=== PATIENT | female | born 1950 | race Caucasian/White ===

== ENCOUNTER 2019-09-16 01:41 | Observation (INO) ==
[2019-09-16 02:53] LABS: BUN Creatinine Ratio 13.1 (10-20); Bilirubin,Total 0.5 mg/dl (0.2-1); Calcium 9.1 mg/dl (8.5-10.1); Creatinine Clr Calc Pharmacy 54.7 ml/min; Est GFR (African American) 63.2; Est GFR (Non-African American) 54.5; Globulin 4.1 gm/dl (2.5-4.0); Potassium 3.4 mmol/L (3.5-5.1); Total Protein 8.1 gm/dl (6.4-8.2)
[2019-09-16 02:54] LABS: Basophils # (auto) 0.01 K/uL (0-0.2); Basophils % (auto) 0.1 %; Eosinophils # (auto) 0.16 K/uL (0-0.5); Eosinophils % (auto) 2.3 %; Hematocrit (blood only) 40.7 % (37-47); Hemoglobin 13.7 g/dL (12.0-16.0); Immature Granulocytes # (auto) 0.01 K/uL (0.00-0.02); Immature Granulocytes % (auto) 0.1 %; Lymphocytes # (auto) 1.88 K/uL (1.2-3.4); Lymphocytes % (auto) 27.5 %; Mean Corpuscular Hemoglobin 29.5 pg (25-34); Mean Corpuscular Hgb Conc 33.7 g/dL (32-36); Mean Corpuscular Volume 87.5 fL (80-100); Mean Platelet Volume 10.6 fL (7.4-10.4); Monocytes # (auto) 0.61 K/uL (0.11-0.59); Monocytes % (auto) 8.9 %; Neutrophils # (auto) 4.17 K/uL (1.4-6.5); Neutrophils % (auto) 61.1 %; Platelet Count 157 K/uL (130-400); RDW Coefficient of Variation 13.7 % (11.5-14.5); RDW Standard Deviation 43.7 fL (36.4-46.3); Red Blood Count 4.65 M/uL (4.2-5.4); White Blood Count 6.84 K/uL (4.8-10.8)
[2019-09-16 02:56] LABS: Partial Thromboplastin Time 26.3 Seconds (21.0-31.0); Prothrombin Time 10.3 Seconds (9.0-12.0)
[2019-09-16] MEDS ORDERED: ALBUTEROL 0.083% NEBU SOLN 3 ML VIAL NEB STA (02:59)
[2019-09-16] MEDS ORDERED: IOVERSOL 100ml IV PRN (03:04)
[2019-09-16] MEDS ORDERED: POTASSIUM CHLORIDE 20 MEQ TABCR PO STA ×2 (04:04→07:21)
[2019-09-16] MEDS ORDERED: LACTATED RINGER'S 1,000 ML IV ONE (04:19)
--- NOTE | 2019-09-16 04:39 | Emergency Department Note ---
Entered by Bruce Berumen acting as a scribe for History of Present Illness General Chief complaint: Rectal Bleed Stated complaint: RECTAL BLEEDING Time Seen by Provider: 09/16/19 01:52 Source: patient History of Present Illness Onset (ago): day(s) (two nights ago) Location: abdomen Pain Consistency: + intermittent Quality: + other (rectal bleeding) Associated symptoms: + other (Positive for intermittent abdominal pain and a cough.) The patient is a 69 year old female who presents to the emergency department with complaints of intermittent rectal bleeding beginning two days ago. The patient states that she has had a cough for a week. She notes that she was coughing two days ago, and she reports that she started having rectal bleeding at that time. The patient states that her bleeding resolved yesterday during the day, but she notes that her bleeding started up again last night. She also complains of intermittent abdominal pain. She reports that she has a history of hemorrhoids and diverticulosis, but she denies any blood thinners use. Home Medications Home Medications Medication Instructions Recorded Confirmed Type Flovent HFA 2 inh INHALATION BID PRN 08/09/18 09/16/19 History albuterol sulfate [Ventolin HFA] 1 puff INHALATION Q6H PRN 08/09/18 09/16/19 History atenolol 25 mg PO QAM 08/09/18 09/16/19 History omeprazole 20 mg PO BID 08/09/18 09/16/19 History coenzyme Q10 [Co Q-10] 200 mg PO QAM 02/12/19 09/16/19 History rosuvastatin [Crestor] 5 mg PO QAM 02/12/19 09/16/19 History Allergies Allergy/AdvReac Type Severity Reaction Status Date / Time Sulfa (Sulfonamide Allergy Intermediate Hives Verified 09/16/19 03:29 Antibiotics) codeine AdvReac Intermediate "deathly Verified 09/16/19 03:29 sick and I throw up" levofloxacin [From Levaquin] AdvReac Mild Nausea Verified 09/16/19 03:29 Past Med/Surg History Social History Preferred Language: Yemeni Communication Ability: Effective Visual Impairment: No Limitations Hearing Ability: Normal Glove Turner And Former Required: No Beliefs That Will Affect Care: None marital status: Current Living Situation: Spouse Feels Safe at Home: Yes Smoking Status: Never smoker Second Hand Exposure: No ; Hx Alcohol Use: No Hx Substance Use: No Review of Systems See HPI for pertinent positives & negatives. and A total of 10 systems reviewed and were otherwise negative Physical Exam Vital Signs Vital Signs - 24 hr 09/16/19 01:45 09/16/19 02:00 09/16/19 02:13 Temperature 36.6 C Temperature Source Oral Pulse Rate 94 H 85 Pulse Rate [Right Finger] Pulse Rate from SpO2 Sensor 82 Respiratory Rate 20 18 Respiratory Effort / Characteristics Respiratory Depth Normal Blood Pressure 181/110 H 162/105 H Blood Pressure Mean 133 131 Pulse Oximetry 98 99 95 Oxygen Delivery Method Room Air Room Air Sepsis Recent Fever Within 48 Hours No Sepsis New/Unexplained Change in Mental Status No Sepsis Action Taken by Nursing No Action Required 09/16/19 02:45 09/16/19 03:00 09/16/19 03:14 Temperature Temperature Source Pulse Rate 78 73 Pulse Rate [Right Finger] 76 Pulse Rate from SpO2 Sensor 75 Respiratory Rate 14 18 16 Respiratory Effort / Characteristics Non-Labored Respiratory Depth Blood Pressure Blood Pressure Mean Pulse Oximetry 100 98 Oxygen Delivery Method Room Air Sepsis Recent Fever Within 48 Hours Sepsis New/Unexplained Change in Mental Status Sepsis Action Taken by Nursing 09/16/19 03:30 09/16/19 04:00 09/16/19 04:32 Temperature Temperature Source Pulse Rate 81 90 Pulse Rate [Right Finger] Pulse Rate from SpO2 Sensor 82 89 97 H Respiratory Rate 18 22 Respiratory Effort / Characteristics Respiratory Depth Blood Pressure 153/88 H 152/88 H Blood Pressure Mean 100 97 Pulse Oximetry 97 98 93 Oxygen Delivery Method Sepsis Recent Fever Within 48 Hours Sepsis New/Unexplained Change in Mental Status Sepsis Action Taken by Nursing GENERAL: Awake, alert, well-appearing, in no acute distress HENT: Normocephalic, atraumatic. Oropharynx unremarkable. EYES: Normal conjunctiva. Sclera non-icteric. NECK: Supple. No nuchal rigidity. FROM. No JVD. RESPIRATORY: Clear to auscultation. CARDIAC: Regular rate, normal rhythm. Extremities warm and well perfused. Pulses equal. ABDOMEN: Soft, non-distended. No tenderness to palpation. No rebound or guarding. No masses. RECTAL: Dark red blood, guaiac positive. MUSCULOSKELETAL: Chest examination reveals no tenderness. The back is symmetrical on inspection without obvious abnormality. There is no CVA tenderness to palpation. No joint edema. LOWER EXTREMITIES: Calves are equal size bilaterally and non-tender. No edema. No discoloration. NEURO: Normal sensorium. No sensory or motor deficits noted. SKIN: No rash or jaundice noted. Course Course 0153: The patient was evaluated in room A12. A complete history and physical exam was performed. Administered Medications Atenolol (Tenormin) 25 mg PO QAM CESAR Stop: 10/16/19 04:49 Last Admin: 09/16/19 05:19 Dose: 25 mg Documented by: [id number] Guaifenesin (Mucinex) 600 mg PO Q12 CESAR Stop: 10/16/19 05:48 Last Admin: 09/16/19 06:23 Dose: 600 mg Documented by: [id number] Lactated Ringer's (Lr) 1,000 mls @ 80 mls/hr IV .[id number] ONE Stop: 09/16/19 16:48 Last Admin: 09/16/19 04:37 Dose: 80 mls/hr Documented by: [id number] Discontinued Medications Albuterol (Ventolin 0.083% 2.5mg/3ml) 2.5 mg NEB NOW STA Stop: 09/16/19 03:00 Last Admin: 09/16/19 03:13 Dose: 2.5 mg Documented by: [id number] Ioversol (Optiray 320 100ml) 100 ml IV ONCE PRN PRN Reason: Interaction Checking Stop: 09/20/19 03:03 Last Admin: 09/16/19 03:04 Dose: 92 ml Documented by: [id number] Potassium Chloride (Klor-Con M20) 40 meq PO NOW STA Stop: 09/16/19 04:05 Last Admin: 09/16/19 04:18 Dose: 40 meq Documented by: [id number] Medical Decision Making Differential Diagnosis Differential diagnosis includes etiologies such as diverticulosis, AVM, coagulopathy, colitis, inflammatory bowel disease, malignancy, Naomi-Carrion t ear, esophagitis, peptic ulcer disease, variceal bleed, gastritis, epistaxis, fissure, hemorrhoids, as well as others were entertained. Medical Records Attestation: I reviewed the patient's medical records. Home Medications Current Medication List: was personally reviewed by me Laboratory Data Attestation: I reviewed the patient's lab results. Result diagrams: 09/16/19 02:07 09/16/19 02:07 Lab Results 09/16/19 09/16/19 09/16/19 Range/Units 02:07 02:07 02:07 WBC 6.84 (4.8-10.8) K/uL RBC 4.65 (4.2-5.4) M/uL Hgb 13.7 (12.0-16.0) g/dL Hct 40.7 (37-47) % MCV 87.5 (80-100) fL MCH 29.5 (25-34) pg MCHC 33.7 (32-36) g/dL RDW Std Deviation 43.7 (36.4-46.3) fL RDW Coeff of [place] 13.7 (11.5-14.5) % Plt Count 157 (130-400) K/uL MPV 10.6 H (7.4-10.4) fL Immature Gran % (Auto) 0.1 % Neut % (Auto) 61.1 % Lymph % (Auto) 27.5 % [place] % (Auto) 8.9 % Eos % (Auto) 2.3 % Baso % (Auto) 0.1 % Immature Gran # (Auto) 0.01 (0.00-0.02) K/uL Neut # (Auto) 4.17 (1.4-6.5) K/uL Lymph # (Auto) 1.88 (1.2-3.4) K/uL [place] # (Auto) 0.61 H (0.11-0.59) K/uL Eos # (Auto) 0.16 (0-0.5) K/uL Baso # (Auto) 0.01 (0-0.2) K/uL Absolute Nucleated RBC 0.00 (0-0) K/uL Nucleated RBC % (auto) 0.0 % PT 10.3 (9.0-12.0) Seconds INR 1.0 (0.9-1.1) APTT 26.3 (21.0-31.0) Seconds PTT Ratio 1.0 Sodium 141 (136-145) mmol/L Potassium 3.4 L (3.5-5.1) mmol/L Chloride 107 (98-107) mmol/L Carbon Dioxide 29 (21-32) mmol/L Anion Gap 5.0 (3-11) BUN 14 (7-18) mg/dl Creatinine 1.05 (0.6-1.2) mg/dl Est Cr Clr Drug Dosing 54.7 ml/min Est GFR ( Amer) 63.2 Est GFR (Non-Af Amer) 54.5 BUN/Creatinine Ratio 13.1 (10-20) Glucose 105 H (70-99) mg/dl Calcium 9.1 (8.5-10.1) mg/dl Magnesium Cancelled Total Bilirubin 0.5 (0.2-1) mg/dl AST 12 L (15-37) U/L ALT 27 (12-78) U/L Alkaline Phosphatase 87 (45-117) U/L Total Protein 8.1 (6.4-8.2) gm/dl Albumin 4.0 (3.4-5.0) gm/dl Globulin 4.1 H (2.5-4.0) gm/dl Albumin/Globulin Ratio 1.0 (0.9-2) Blood Type Antibody Screen 09/16/19 09/16/19 Range/Units 02:07 02:07 WBC (4.8-10.8) K/uL RBC (4.2-5.4) M/uL Hgb (12.0-16.0) g/dL Hct (37-47) % MCV (80-100) fL MCH (25-34) pg MCHC (32-36) g/dL RDW Std Deviation (36.4-46.3) fL RDW Coeff of [place] (11.5-14.5) % Plt Count (130-400) K/uL MPV (7.4-10.4) fL Immature Gran % (Auto) % Neut % (Auto) % Lymph % (Auto) % [place] % (Auto) % Eos % (Auto) % Baso % (Auto) % Immature Gran # (Auto) (0.00-0.02) K/uL Neut # (Auto) (1.4-6.5) K/uL Lymph # (Auto) (1.2-3.4) K/uL [place] # (Auto) (0.11-0.59) K/uL Eos # (Auto) (0-0.5) K/uL Baso # (Auto) (0-0.2) K/uL Absolute Nucleated RBC (0-0) K/uL Nucleated RBC % (auto) % PT (9.0-12.0) Seconds INR (0.9-1.1) APTT (21.0-31.0) Seconds PTT Ratio Sodium (136-145) mmol/L Potassium (3.5-5.1) mmol/L Chloride (98-107) mmol/L Carbon Dioxide (21-32) mmol/L Anion Gap (3-11) BUN (7-18) mg/dl Creatinine (0.6-1.2) mg/dl Est Cr Clr Drug Dosing ml/min Est GFR ( Amer) Est GFR (Non-Af Amer) BUN/Creatinine Ratio (10-20) Glucose (70-99) mg/dl Calcium (8.5-10.1) mg/dl Magnesium 1.8 Total Bilirubin (0.2-1) mg/dl AST (15-37) U/L ALT (12-78) U/L Alkaline Phosphatase (45-117) U/L Total Protein (6.4-8.2) gm/dl Albumin (3.4-5.0) gm/dl Globulin (2.5-4.0) gm/dl Albumin/Globulin Ratio (0.9-2) Blood Type A Positive Antibody Screen NEGATIVE Imaging Data My Impression: One view of the chest was determined by me shows no evidence of pneumonia congestion or pneumothorax. Radiologist's Impression: CT abdomen pelvis with contrast: Colonic diverticulosis without diverticulitis. Normal appendix. No mucosal inflammatory changes along the GI tract. Nonobstructing nephrolithiasis on the right. Status post hysterectomy. The liver gallbladder pancreas spleen and adrenal glands are unremarkable. ECG Data Attestation: I personally reviewed and interpreted this ECG as follows: Indication: + other (Rectal bleed) Rate (beats per minute): 77 Rhythm: + normal sinus ECG Intervals/blocks: + Normal QT ECG [place]: + Normal ECG ST segments: no ST depression and no ST elevation Blood Pressure Blood Pressure Findings: Elevated blood pressure Blood Pressure Disposition: elevated BP felt to be situational MDM Narrative This is a 69-year-old female who presents emergency department complaining of a GI bleed. Patient has bright red blood per rectum on physical examination. She does have hemorrhoids. Her hemoglobin here is stable at 13. I will note that the patient arise during a period of high volume and high acuity during [employer] downtime. Patient is also complaining of a cough therefore she was given albuterol breathing treatment. Chest x-ray does not show any evidence of pneumonia congestion or pneumothorax. Patient was discussed with the hospitalist service. Patient was in agreement with the treatment plan peer Impression & Plan Rectal bleed, Bronchitis Discharge Plan Visit Data *Final* Discharge Date/Time: 09/16/19 05:23 Chief Complaint: Rectal Bleed Stated Complaint: RECTAL BLEEDING ED Provider: Ehsan Tamayo Discharge Problem: Rectal bleed, Bronchitis Patient Disposition: Admitted As Inpatient Discharge Instructions Interventions: ED Discharge Assessment Last Done: 09/16/19 05:23 The scribe's documentation has been prepared under my direction and personally reviewed by me in its entirety. I confirm that the note above accurately reflects all work, treatment, procedures, and medical decision making performed by me.
--- NOTE | 2019-09-16 04:49 | History & Physical Report ---
Date of Service September 16, 2019 Assessment & Plan (1) Acute lower GI bleeding: Possibly from diverticular/internal hemorrhoidal bleed Seems to be hemodynamically stable currently Patient uncomfortable going home. hypertension, slight elevated Viral URTI asthma/pulmonary hypertension as per records Hypokalemia secondary to poor p.o. intake status post replacement at the ER OBS GMF Clear liquids for now Trend H&H, transfuse PRBC if hemoglobin less than 7 and/or for symptomatic anemia GI consult if with progression of LGIB Supportive measures for viral URTI DVT prophylaxis. SCDs RE GI bleed Full code History of Present Illness Chief Complaint: Rectal bleed Primary Care Provider: Jasmina Taylor MD History obtained from patient, family, and records. Medical history significant for hypertension, asthma/pulmonary hypertension as per records, diverticulosis/internal hemorrhoids/colon polyp. Recent confinement July 2018 for L GIB. Yesterday patient noted rectal bleed soaking her underwear. Not diarrhea at all. Minimal left-sided abdominal discomfort. No nausea, emesis. No fever, no chills. Dry cough symptoms for about a week. Not like the flu as per patient. No chest pain, no S OB. Poor appetite. Patient brought to the ER by . CT abdomen pelvis initial read: Colonic diverticulosis without diverticulitis. Normal appendix. Status post hysterectomy. Nonobstructing nephrolithiasis on the right. Patient hesitant to go home despite reassurance from ER provider. 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 Allergies Allergy/AdvReac Type Severity Reaction Status Date / Time Sulfa (Sulfonamide Allergy Intermediate Hives Verified 09/16/19 03:29 Antibiotics) codeine AdvReac Intermediate "deathly Verified 09/16/19 03:29 sick and I throw up" levofloxacin [From Levaquin] AdvReac Mild Nausea Verified 09/16/19 03:29 Home Medications Home Medications Medication Instructions Recorded Confirmed Type Flovent HFA 2 inh INHALATION BID PRN 08/09/18 09/16/19 History albuterol sulfate [Ventolin HFA] 1 puff INHALATION Q6H PRN 08/09/18 09/16/19 History atenolol 25 mg PO QAM 08/09/18 09/16/19 History omeprazole 20 mg PO BID 08/09/18 09/16/19 History coenzyme Q10 [Co Q-10] 200 mg PO QAM 02/12/19 09/16/19 History rosuvastatin [Crestor] 5 mg PO QAM 02/12/19 09/16/19 History Past Med/Surg History Social History Preferred Language: Tanzanian Communication Ability: Effective Visual Impairment: No Limitations Hearing Ability: Normal Lumber Tallier Required: No Beliefs That Will Affect Care: None marital status: Current Living Situation: Spouse Feels Safe at Home: Yes Smoking Status: Never smoker Second Hand Exposure: No ; Hx Alcohol Use: No Hx Substance Use: No Review of Systems Review of Systems: As per HPI, all 10 systems reviewed, all other ROS negative Physical Exam Physical Exam: GENERAL: Slightly anxious, obese,, no respiratory distress, occasional cough SKIN: Normal color, warm HEENT: Bespectacled, pink palpebral conjunctivae, no ptosis, dry buccal mucosa NECK : Supple, short neck, no tenderness CHEST : CTA, no tenderness HEART : RRR, no obvious murmurs ABDOMEN: Some distention, nontender EXTREMITIES : No LE swelling/tenderness, no other conspicuous deformities noted NEUROLOGIC : Coherent, no facial asymmetry, no other gross focality Results & Data Vital Signs (Past 12 Hours) Vital Signs Temp Pulse Pulse Resp BP Pulse Ox 09/16/19 03:14 76 16 98 09/16/19 03:00 73 18 100 09/16/19 02:45 78 14 09/16/19 02:13 85 18 162/105 H 95 09/16/19 02:00 99 09/16/19 01:45 36.6 C 94 H 20 181/110 H 98 Laboratory Results Laboratory Results WBC 6.84 K/uL (4.8-10.8) 09/16/19 02:07 RBC 4.65 M/uL (4.2-5.4) 09/16/19 02:07 Hgb 13.7 g/dL (12.0-16.0) 09/16/19 02:07 Hct 40.7 % (37-47) 09/16/19 02:07 MCV 87.5 fL (80-100) 09/16/19 02:07 MCH 29.5 pg (25-34) 09/16/19 02:07 MCHC 33.7 g/dL (32-36) 09/16/19 02:07 RDW Std Deviation 43.7 fL (36.4-46.3) 09/16/19 02:07 RDW Coeff of [place] 13.7 % (11.5-14.5) 09/16/19 02:07 Plt Count 157 K/uL (130-400) 09/16/19 02:07 MPV 10.6 fL (7.4-10.4) H 09/16/19 02:07 Immature Gran % (Auto) 0.1 % 09/16/19 02:07 Neut % (Auto) 61.1 % 09/16/19 02:07 Lymph % (Auto) 27.5 % 09/16/19 02:07 [place] % (Auto) 8.9 % 09/16/19 02:07 Eos % (Auto) 2.3 % 09/16/19 02:07 Baso % (Auto) 0.1 % 09/16/19 02:07 Immature Gran # (Auto) 0.01 K/uL (0.00-0.02) 09/16/19 02:07 Neut # (Auto) 4.17 K/uL (1.4-6.5) 09/16/19 02:07 Lymph # (Auto) 1.88 K/uL (1.2-3.4) 09/16/19 02:07 [place] # (Auto) 0.61 K/uL (0.11-0.59) H 09/16/19 02:07 Eos # (Auto) 0.16 K/uL (0-0.5) 09/16/19 02:07 Baso # (Auto) 0.01 K/uL (0-0.2) 09/16/19 02:07 Absolute Nucleated RBC 0.00 K/uL (0-0) 09/16/19 02:07 Nucleated RBC % (auto) 0.0 % 09/16/19 02:07 PT 10.3 Seconds (9.0-12.0) 09/16/19 02:07 INR 1.0 (0.9-1.1) 09/16/19 02:07 APTT 26.3 Seconds (21.0-31.0) 09/16/19 02:07 PTT Ratio 1.0 09/16/19 02:07 Sodium 141 mmol/L (136-145) 09/16/19 02:07 Potassium 3.4 mmol/L (3.5-5.1) L 09/16/19 02:07 Chloride 107 mmol/L (98-107) 09/16/19 02:07 Carbon Dioxide 29 mmol/L (21-32) 09/16/19 02:07 Anion Gap 5.0 (3-11) 09/16/19 02:07 BUN 14 mg/dl (7-18) 09/16/19 02:07 Creatinine 1.05 mg/dl (0.6-1.2) 09/16/19 02:07 Est Cr Clr Drug Dosing 54.7 ml/min 09/16/19 02:07 Est GFR ( Amer) 63.2 09/16/19 02:07 Est GFR (Non-Af Amer) 54.5 09/16/19 02:07 BUN/Creatinine Ratio 13.1 (10-20) 09/16/19 02:07 Glucose 105 mg/dl (70-99) H 09/16/19 02:07 Calcium 9.1 mg/dl (8.5-10.1) 09/16/19 02:07 Total Bilirubin 0.5 mg/dl (0.2-1) 09/16/19 02:07 AST 12 U/L (15-37) L 09/16/19 02:07 ALT 27 U/L (12-78) 09/16/19 02:07 Alkaline Phosphatase 87 U/L (45-117) 09/16/19 02:07 Total Protein 8.1 gm/dl (6.4-8.2) 09/16/19 02:07 Albumin 4.0 gm/dl (3.4-5.0) 09/16/19 02:07 Globulin 4.1 gm/dl (2.5-4.0) H 09/16/19 02:07 Albumin/Globulin Ratio 1.0 (0.9-2) 09/16/19 02:07 POC Stool Occult Blood Negative (Negative) 09/16/[address] abdomen pelvis initial read as per HPI
[2019-09-16] MEDS ORDERED: ATENOLOL 25 MG TABLET PO SCH (04:50)
[2019-09-16] MEDS ORDERED: LORazepam 0.25 MG/0.5 ML VIAL IV PRN (05:49)
[2019-09-16] MEDS ORDERED: TRAMADOL HCL 50 MG TABLET PO PRN (05:49)
[2019-09-16] MEDS ORDERED: BENZONATATE 100 MG CAPSULE PO PRN (05:49)
[2019-09-16] MEDS ORDERED: guaiFENesin 600 MG TABCR PO SCH (05:49)
[2019-09-16] MEDS ORDERED: ACETAMINOPHEN 325 MG TAB PO PRN ×2 (05:49→07:21)
[2019-09-16] MEDS ORDERED: MoRPHine SULFATE 4 MG/ML 1 ML CARP\\VIAL IV PRN (05:49)
[2019-09-16] MEDS ORDERED: PROMETHAZINE HCL 12.5 MG in SODIUM CHLORIDE 0.9% 50 ML IV PRN (05:49)
[2019-09-16] MEDS ORDERED: ALBUT/IPRATROP 3MG/0.5MG NEB 3 ML VIAL NEB PRN (05:49)
--- NOTE | 2019-09-16 06:53 | XRay Report ---
XR chest 1V portable CLINICAL HISTORY: 69 years-old Female presenting with Pt c/o SOB. TECHNIQUE: Portable upright AP view of the chest was obtained. COMPARISON: None. FINDINGS: Atherosclerosis and tortuosity of the thoracic aorta. Cardiac silhouette mildly enlarged. No focal op acity. No large effusion or pneumothorax. Osseous structures normal. Upper abdomen normal. IMPRESSION: 1. Mild cardiomegaly. No other convincing evidence of acute cardiopulmonary disease. Electronically signed by: Bethel Casarez M.D. 09/16/2019 6:52 AM
--- NOTE | 2019-09-16 07:06 | CT Scan Report ---
CT abd pelvis IV con only CLINICAL HISTORY: 69 years-old Female presenting with Pt LLQ abd pain Rectal bleed. TECHNIQUE: Multidetector CT of the abdomen and pelvis was performed after the administration of intra venous contrast. IV contrast: 92 mL of Optiray 320. One or more dose lowering techniques were used co nsistent with the principles of ALARA (as low as reasonably achievable), including automatic exposure control, mA or kV adjustment to individual patient size, and/or use of iterative reconstruction. COMPARISON: 08/09/2018. CT DOSE (mGy.cm): The estimated cumulative dose is 751.70 mGy.cm. FINDINGS: Manager Local topogram: Unremarkable. Lung bases: The heart may be enlarged. No pericardial or pleural effusion. Mosaic attenuation and dep endent opacities at the lung bases may relate to the phase of respiration. Pulmonary vascular promine nce evident. No significant interlobular septal thickening. Liver: Normal morphology. No liver lesion. Patent hepatic vasculature. Biliary: No intrahepatic or extrahepatic biliary ductal dilatation. Normal gallbladder. Pancreas: Mild parenchymal atrophy. Spleen: Normal. Adrenal glands: Normal. Kidneys and ureters: Duplicated right renal collecting system. Suspected joining of the ureters at th e level of the proximal portion. Mild distention of the proximal right ureters without evidence of an obstructing calculus or mass. No hydronephrosis. Renal parenchyma is normal apart from few cysts. No nobstructing 8 mm calculus at the lower pole of the right kidney. Bladder: Incompletely evaluated secondary to underdistention. Pelvic organs: Uterus surgically absent. Bowel: The rectum is normal. Diverticulosis of the proximal to mid sigmoid colon and distal descendin g colon without wall thickening or pericolonic inflammatory change. The appendix is normal. No bowel obstruction. Peritoneal cavity: No free fluid or intraperitoneal gas. Lymph nodes: No enlarged lymph nodes in the abdomen or pelvis. Vasculature: Atherosclerosis of the normal caliber abdominal aorta. IVC patent. Abdominal wall: Small fat-containing umbilical hernia. Musculoskeletal: Normal. IMPRESSION: 1. No acute intra-abdominal pathology. Normal appearance on CT of the rectum. No demonstrable eviden ce of gastrointestinal hemorrhage on this exam. 2. Diverticulosis coli. No diverticulitis. 3. Nonobstructing 8 mm right renal calculus. 4. Mild volume overload may be present given pulmonary vascular prominence at the lung bases. Electronically signed by: Bethel Casarez M.D. 09/16/2019 7:04 AM
[2019-09-16 07:25] VITALS: BP 143/86; PULSE 65; TEMP 98.2; O2SAT 95
[2019-09-16 08:08] LABS: Hematocrit (blood only) 37.5 % (37-47); Hemoglobin 12.5 g/dL (12.0-16.0)
[2019-09-16 08:41] LABS: iSTAT Creatinine 0.9 mg/dl (0.6-1.3); iSTAT Hemoglobin 13.9 g/dl (12.0-16.0); iSTAT Ionized Calcium 1.15 mmol/l (1.12-1.32); iSTAT Potassium 3.4 mEq/L (3.3-5.0)
[2019-09-16] MEDS ORDERED: PANTOprazole 40 MG TAB PO SCH (09:00)
[2019-09-16] MEDS ORDERED: ROSUVASTATIN CALCIUM 5 MG TAB PO SCH (09:00)
--- NOTE | 2019-09-16 11:22 | Gastrointestinal Consultation ---
Date of Consultation September 16, 2019 Assessment & Plan (1) Acute lower GI bleedin69 y/o female presented with BRBPR x 2 which has since not recurred. Labs, VS stable and she feels at her baseline. CT without acute changes. She had a recent EGD/Colonoscopy 1 year ago with hemorrhoids, diverticulosis. She has chronic ABD pain which is unchanged. Diff dx discussed including hemorrhoidal, diverticular, AVM, ischemic, polyps, neoplasm, etc. - Continue diet as tolerated - Consider Anusol PRN for hemorrhoids - Monitor GI output - Trend H&H - Continue PPI for h/o GERD - Discussed pursuing repeat colonoscopy and pt is not interested at this time as she feels well and bleeding has stopped, though would pursue if she has ongoing hematochezia, drop in HGB, etc. corona you for allowing us to participate in the care of this patient. Please call with any acute changes, questions or concerns. Please see addendum below with additional recommendation from my supervising physicia Attg Add: I interviewed andexamined pt,r eveiwed dchart and labs. Pt with small volume painless rectal bleeding yesterday that appears to have resolved. Hgb unremarkable. Exam today shows benign abdomen, hemorrhoids and no stool on retcal exam. S/p recent csocpy. A/P: POSSIBLE OUTLET BLEEDING? No apparent need to repeat scope at this time. Ok for d/c from GI standpoint; she is eager to be home for the. History of Present Illness Reason for Consultation: rectal bleeding Requesting Physician: Dr. Morgan Attending Physician: Viktor Morgan MD History of Present Illness 69 y/o female with PMHx HTN, GERD presented to the ER yesterday with BRBPR; had two episodes; one on Saturday with blood noted in her underwear (pt unable to quantify) and one episode yesterday when she noticed blood on TP after wiping after urinating. She was concerned and came to the ER. HGB, BUN normal; VS stable. CTAP with IV contrast noted no acute pathology, diverticulosis without diverticulitis. She's noted no further BRBPR. Denies recent constipation. Has chronic abd pain for years and this is unchanged. Has GERD that is asymptomatic on PPI. Had a recent video swallow for dysphagia noting no aspiration but mild esophageal dysmotility. Has had a URI since last week that seems to be resolving. Today she is feeling well; tolerating clear liquids. Bowels move once daily, semi-formed,brown; denies melena, n/v/d, hematemesis. Occ use of Aleve; no ETOH, tobacco, AC. Had a similar episode of BRBPR last year - EGD/colonoscopy 08/20/18 noted normal colon to the TI, + sigmoid diverticulosis, internal hemorrhoids 5 mm cecal polyp later found to be normal tissue on bx Allergies Allergy/AdvReac Type Severity Reaction Status Date / Time Sulfa (Sulfonamide Allergy Intermediate Hives Verified 09/16/19 03:29 Antibiotics) codeine AdvReac Intermediate "deathly Verified 09/16/19 03:29 sick and I throw up" levofloxacin [From Levaquin] AdvReac Mild Nausea Verified 09/16/19 03:29 Home Medications Home Medications Medication Instructions Recorded Confirmed Type Flovent HFA 2 inh INHALATION BID PRN 08/09/18 09/16/19 History albuterol sulfate [Ventolin HFA] 1 puff INHALATION Q6H PRN 08/09/18 09/16/19 History atenolol 25 mg PO QAM 08/09/18 09/16/19 History omeprazole 20 mg PO BID 08/09/18 09/16/19 History coenzyme Q10 [Co Q-10] 200 mg PO QAM 02/12/19 09/16/19 History rosuvastatin [Crestor] 5 mg PO QAM 02/12/19 09/16/19 History Patient History Social History Preferred Language: Wolof Communication Ability: Effective Visual Impairment: No Limitations Hearing Ability: Normal Brake Repairer Required: No Beliefs That Will Affect Care: None marital status: Current Living Situation: Spouse Feels Safe at Home: Yes Smoking Status: Never smoker Second Hand Exposure: No ; Hx Alcohol Use: No Hx Substance Use: No Review of Systems Constitutional: no fever, no chills and no weight loss Respiratory: + cough (improving); no dyspnea Cardiovascular: no chest pain, no dyspnea and no edema Gastrointestinal: as per Subjective / HPI Genitourinary: no dysuria and no hematuria Integumentary: no rash and no lesions Neurologic: as per Subjective / HPI Hematologic / Lymphatic: no easy bleeding, no easy bruising and no coagulopathy Physical Exam Constitutional: WD/WN, vitals as above Eyes: + anicteric sclerae Respiratory: normal respiratory effort, lungs clear to auscultation Cardiovascular: RRR, no murmur, no edema Gastrointestinal (Abdomen): normal bowel sounds, soft, nontender, no hepatosplenomegaly Rectal Exam: + hemorrhoids (no active bleeding noted); no rectal mass Skin: no rashes, warm and dry Psychiatric: A+Ox3, euthymic affect Results & Data Vital Signs (Past 12 Hours) Vital Signs Temp Pulse Pulse Resp BP BP Pulse Ox 09/16/19 07:00 36.8 C 65 18 143/86 H 95 09/16/19 05:55 36.7 C 69 18 158/96 H 98 09/16/19 05:00 81 22 145/92 H 97 09/16/19 04:32 93 09/16/19 04:00 90 22 152/88 H 98 09/16/19 03:30 81 18 153/88 H 97 09/16/19 03:14 76 16 98 09/16/19 03:00 73 18 100 09/16/19 02:45 78 14 09/16/19 02:13 85 18 162/105 H 95 09/16/19 02:00 99 09/16/19 01:45 36.6 C 94 H 20 181/110 H 98 Laboratory Results 09/16/19 09/16/19 09/16/19 Range/Units Unknown 07:47 02:13 WBC (4.8-10.8) K/uL RBC (4.2-5.4) M/uL Hgb 12.5 (12.0-16.0) g/dL POC Hgb 13.9 (12.0-16.0) g/dl Hct 37.5 (37-47) % POC Hct 41 (37-47) % MCV (80-100) fL MCH (25-34) pg MCHC (32-36) g/dL RDW Std Deviation (36.4-46.3) fL RDW Coeff of [place] (11.5-14.5) % Plt Count (130-400) K/uL MPV (7.4-10.4) fL Immature Gran % (Auto) % Neut % (Auto) % Lymph % (Auto) % [place] % (Auto) % Eos % (Auto) % Baso % (Auto) % Immature Gran # (Auto) (0.00-0.02) K/uL Neut # (Auto) (1.4-6.5) K/uL Lymph # (Auto) (1.2-3.4) K/uL [place] # (Auto) (0.11-0.59) K/uL Eos # (Auto) (0-0.5) K/uL Baso # (Auto) (0-0.2) K/uL Absolute Nucleated RBC (0-0) K/uL Nucleated RBC % (auto) % PT (9.0-12.0) Seconds INR (0.9-1.1) APTT (21.0-31.0) Seconds PTT Ratio POC Sodium 142 (135-144) mEq/L Sodium (136-145) mmol/L POC Potassium 3.4 (3.3-5.0) mEq/L Potassium (3.5-5.1) mmol/L POC Chloride 104 (101-112) mEq/L Chloride (98-107) mmol/L Carbon Dioxide (21-32) mmol/L POC Total CO2 25 (24-31) mEq/l Anion Gap (3-11) POC Anion Gap 17.0 (16-25) mmol/L POC BUN 13 (7-18) mg/dl BUN (7-18) mg/dl Creatinine (0.6-1.2) mg/dl POC Creatinine 0.9 (0.6-1.3) mg/dl Est Cr Clr Drug Dosing ml/min Est GFR ( Amer) Est GFR (Non-Af Amer) BUN/Creatinine Ratio (10-20) Glucose (70-99) mg/dl POC Glucose (other) 107 H (70-99) mg/dl Calcium (8.5-10.1) mg/dl POC Ioniz Calcium Roselyn 1.15 (1.12-1.32) mmol/l Magnesium Total Bilirubin (0.2-1) mg/dl AST (15-37) U/L ALT (12-78) U/L Alkaline Phosphatase (45-117) U/L Total Protein (6.4-8.2) gm/dl Albumin (3.4-5.0) gm/dl Globulin (2.5-4.0) gm/dl Albumin/Globulin Ratio (0.9-2) POC Stool Occult Blood Negative (Negative) Hepatitis C Ab Screen (Neg) Blood Type Antibody Screen 09/16/19 09/16/19 09/16/19 Range/Units 02:07 02:07 02:07 WBC (4.8-10.8) K/uL RBC (4.2-5.4) M/uL Hgb (12.0-16.0) g/dL POC Hgb (12.0-16.0) g/dl Hct (37-47) % POC Hct (37-47) % MCV (80-100) fL MCH (25-34) pg MCHC (32-36) g/dL RDW Std Deviation (36.4-46.3) fL RDW Coeff of [place] (11.5-14.5) % Plt Count (130-400) K/uL MPV (7.4-10.4) fL Immature Gran % (Auto) % Neut % (Auto) % Lymph % (Auto) % [place] % (Auto) % Eos % (Auto) % Baso % (Auto) % Immature Gran # (Auto) (0.00-0.02) K/uL Neut # (Auto) (1.4-6.5) K/uL Lymph # (Auto) (1.2-3.4) K/uL [place] # (Auto) (0.11-0.59) K/uL Eos # (Auto) (0-0.5) K/uL Baso # (Auto) (0-0.2) K/uL Absolute Nucleated RBC (0-0) K/uL Nucleated RBC % (auto) % PT (9.0-12.0) Seconds INR (0.9-1.1) APTT (21.0-31.0) Seconds PTT Ratio POC Sodium (135-144) mEq/L Sodium (136-145) mmol/L POC Potassium (3.3-5.0) mEq/L Potassium (3.5-5.1) mmol/L POC Chloride (101-112) mEq/L Chloride (98-107) mmol/L Carbon Dioxide (21-32) mmol/L POC Total CO2 (24-31) mEq/l Anion Gap (3-11) POC Anion Gap (16-25) mmol/L POC BUN (7-18) mg/dl BUN (7-18) mg/dl Creatinine (0.6-1.2) mg/dl POC Creatinine (0.6-1.3) mg/dl Est Cr Clr Drug Dosing ml/min Est GFR ( Amer) Est GFR (Non-Af Amer) BUN/Creatinine Ratio (10-20) Glucose (70-99) mg/dl POC Glucose (other) (70-99) mg/dl Calcium (8.5-10.1) mg/dl POC Ioniz Calcium Roselyn (1.12-1.32) mmol/l Magnesium 1.8 Total Bilirubin (0.2-1) mg/dl AST (15-37) U/L ALT (12-78) U/L Alkaline Phosphatase (45-117) U/L Total Protein (6.4-8.2) gm/dl Albumin (3.4-5.0) gm/dl Globulin (2.5-4.0) gm/dl Albumin/Globulin Ratio (0.9-2) POC Stool Occult Blood (Negative) Hepatitis C Ab Screen Neg (Neg) Blood Type A Positive Antibody Screen NEGATIVE 09/16/19 09/16/19 09/16/19 Range/Units 02:07 02:07 02:07 WBC 6.84 (4.8-10.8) K/uL RBC 4.65 (4.2-5.4) M/uL Hgb 13.7 (12.0-16.0) g/dL POC Hgb (12.0-16.0) g/dl Hct 40.7 (37-47) % POC Hct (37-47) % MCV 87.5 (80-100) fL MCH 29.5 (25-34) pg MCHC 33.7 (32-36) g/dL RDW Std Deviation 43.7 (36.4-46.3) fL RDW Coeff of [place] 13.7 (11.5-14.5) % Plt Count 157 (130-400) K/uL MPV 10.6 H (7.4-10.4) fL Immature Gran % (Auto) 0.1 % Neut % (Auto) 61.1 % Lymph % (Auto) 27.5 % [place] % (Auto) 8.9 % Eos % (Auto) 2.3 % Baso % (Auto) 0.1 % Immature Gran # (Auto) 0.01 (0.00-0.02) K/uL Neut # (Auto) 4.17 (1.4-6.5) K/uL Lymph # (Auto) 1.88 (1.2-3.4) K/uL [place] # (Auto) 0.61 H (0.11-0.59) K/uL Eos # (Auto) 0.16 (0-0.5) K/uL Baso # (Auto) 0.01 (0-0.2) K/uL Absolute Nucleated RBC 0.00 (0-0) K/uL Nucleated RBC % (auto) 0.0 % PT 10.3 (9.0-12.0) Seconds INR 1.0 (0.9-1.1) APTT 26.3 (21.0-31.0) Seconds PTT Ratio 1.0 POC Sodium (135-144) mEq/L Sodium 141 (136-145) mmol/L POC Potassium (3.3-5.0) mEq/L Potassium 3.4 L (3.5-5.1) mmol/L POC Chloride (101-112) mEq/L Chloride 107 (98-107) mmol/L Carbon Dioxide 29 (21-32) mmol/L POC Total CO2 (24-31) mEq/l Anion Gap 5.0 (3-11) POC Anion Gap (16-25) mmol/L POC BUN (7-18) mg/dl BUN 14 (7-18) mg/dl Creatinine 1.05 (0.6-1.2) mg/dl POC Creatinine (0.6-1.3) mg/dl Est Cr Clr Drug Dosing 54.7 ml/min Est GFR ( Amer) 63.2 Est GFR (Non-Af Amer) 54.5 BUN/Creatinine Ratio 13.1 (10-20) Glucose 105 H (70-99) mg/dl POC Glucose (other) (70-99) mg/dl Calcium 9.1 (8.5-10.1) mg/dl POC Ioniz Calcium Roselyn (1.12-1.32) mmol/l Magnesium Cancelled Total Bilirubin 0.5 (0.2-1) mg/dl AST 12 L (15-37) U/L ALT 27 (12-78) U/L Alkaline Phosphatase 87 (45-117) U/L Total Protein 8.1 (6.4-8.2) gm/dl Albumin 4.0 (3.4-5.0) gm/dl Globulin 4.1 H (2.5-4.0) gm/dl Albumin/Globulin Ratio 1.0 (0.9-2) POC Stool Occult Blood (Negative) Hepatitis C Ab Screen (Neg) Blood Type Antibody Screen Diagnostic Findings CTAP with IV contrast 09/15/19: No acute intra-abdominal pathology. Normal appearance on CT of the rectum. No demonstrable evidence of gastrointestinal hemorrhage on this exam. Diverticulosis coli. No diverticulitis. Nonobstructing 8 mm right renal calculus. Mild volume overload may be present given pulmonary vascular prominence at the lung bases. Video swallow 09/04/19: No aspiration identified. Mild distal esophageal dysmotility.
--- NOTE | 2019-09-16 14:35 | Hospitalist Progress Note ---
Date of Service September 16, 2019 Assessment & Plan (1) Acute lower GI bleeding: Patient evaluated by gastroenterology and no acute plans for upper endoscopy or colonoscopy. Patient reports that recent 3 bowel movements without blood in stool. Repeat Hemoglobins on 09/16/19 have been stable. Last hemoglobin checked on 09/16/19 is 12.5. 09/22/2019 8:00 AM Provider [facility] [place] Department Radiology [facility] 09/22/2019 2:40 PM Provider Nancy Hernandez MD Department Internal Medicine [facility] (Patient should have follow up complete blood count checked by family medical doctor) Hemorrhoids: Note: Use with conservative measures (eg, dietary modifications, warm sitz baths). Rectal cream (preferred): Hydrocortisone 2.5%: Apply sparingly, up to twice daily for rectal pain or bleed from hemorrhoids medication sent electronically to [facility] [address] [place] [address] Yeny Gonsales, [place] [address] continue home dose omeprazole Mild hypokalemia -serum potassium 3.4 hypertension -continue home dose atenolol Viral Upper respiratory Tract infection suspected -supportive care at home Subjective Patient seen and examined at bedside. Patient evaluated by gastroenterology and no acute plans for upper endoscopy or colonoscopy. Patient reports that recent 3 bowel movements without blood in stool. Repeat Hemoglobins on 09/16/19 have been stable. Last hemoglobin checked on 09/16/19 is 12.5. Patient denies abdominal pain or vomiting. She is able to tolerate the food. No chest pain pain. No shortness of breath. No headache. No dizziness. Discussed outpatient follow up plans. Patient prefers hospital discharge today Review of Systems Review of Systems: All systems reviewed & are unremarkable except as noted in HPI & below Physical Exam Constitutional: WD/WN, vitals as above Eyes: PERRL, conjunctivae normal, anicteric sclerae EOM intact bilaterally ENMT: external ear and nose normal, oropharynx normal Neck: normal visual inspection Respiratory: normal respiratory effort, lungs clear to auscultation Cardiovascular: RRR, no murmur, no edema Gastrointestinal (Abdomen): normal bowel sounds, soft, nontender, no hepatosplenomegaly Musculoskeletal: Head/Neck/Chest: normocephalic and head atraumatic Neurologic: PERRL, EOMI, accommodation nl, no face palsy, no dysarthria CN's II-XI intact bilaterally Psychiatric: A+Ox3, euthymic affect Results & Data Vital Signs (Past 12 Hours) Vital Signs Temp Pulse Pulse Resp BP BP Pulse Ox 09/16/19 07:00 36.8 C 65 18 143/86 H 95 09/16/19 05:55 36.7 C 69 18 158/96 H 98 09/16/19 05:00 81 22 145/92 H 97 09/16/19 04:32 93 09/16/19 04:00 90 22 152/88 H 98 09/16/19 03:30 81 18 153/88 H 97 09/16/19 03:14 76 16 98 09/16/19 03:00 73 18 100 09/16/19 02:45 78 14
[2019-09-16] MEDS ORDERED: HYDROCORTISONE HC 2.5% CRM 30GM TUBE EXT PRN (14:43)
--- NOTE | 2019-09-16 14:59 | Discharge Summary ---
Date of Service September 16, 2019 Admission HPI Per Admitting Provider History obtained from patient, family, and records. Medical history significant for hypertension, asthma/pulmonary hypertension as per records, diverticulosis/internal hemorrhoids/colon polyp. Recent confinement July 2018 for Paul NEWSOME. Yesterday patient noted rectal bleed soaking her underwear. Not diarrhea at all. Minimal left-sided abdominal discomfort. No nausea, emesis. No fever, no chills. Dry cough symptoms for about a week. Not like the flu as per patient. No chest pain, no S OB. Poor appetite. Patient brought to the ER by . CT abdomen pelvis initial read: Colonic diverticulosis without diverticulitis. Normal appendix. Status post hysterectomy. Nonobstructing nephrolithiasis on the right. Patient hesitant to go home despite reassurance from ER provider. Medical History as above 2017 colonoscopy showed colonic polyp, internal hemorrhoids, diverticulosis 2017 EGD showed erythematous antral mucosa Surgical History : Hysterectomy, skin tumor removal Family History : Diabetes, thyroid cancer, ulcerative colitis, brain aneurysm Personal/Social history : Non-smoker, no EtOH intake, retired [employer] Admission Exam Per Admitting Provider Physical Exam Physical Exam: GENERAL: Slightly anxious, obese,, no respiratory distress, occasional cough SKIN: Normal color, warm HEENT: Bespectacled, pink palpebral conjunctivae, no ptosis, dry buccal mucosa NECK : Supple, short neck, no tenderness CHEST : CTA, no tenderness HEART : RRR, no obvious murmurs ABDOMEN: Some distention, nontender EXTREMITIES : No LE swelling/tenderness, no other conspicuous deformities noted NEUROLOGIC : Coherent, no facial asymmetry, no other gross focality Principal Diagnosis Acute lower Gastrointestinal bleeding, Mild hypokalemia, Hypertension, Viral Upper respiratory Tract infection suspected Discharge Exam Constitutional WD/WN, vitals as above Eyes PERRL, conjunctivae normal, anicteric sclerae EOM intact bilaterally ENMT external ear and nose normal, oropharynx normal Neck normal visual inspection Respiratory normal respiratory effort, lungs clear to auscultation Cardiovascular RRR, no murmur, no edema Gastrointestinal (Abdomen) normal bowel sounds, soft, nontender, no hepatosplenomegaly Musculoskeletal Head/Neck/Chest: normocephalic and head atraumatic Neurologic PERRL, EOMI, accommodation nl, no face palsy, no dysarthria CN's II-XI intact bilaterally Psychiatric A+Ox3, euthymic affect Discharge Data Allergies Allergy/AdvReac Type Severity Reaction Status Date / Time Sulfa (Sulfonamide Allergy Intermediate Hives Verified 09/16/19 03:29 Antibiotics) codeine AdvReac Intermediate "deathly Verified 09/16/19 03:29 sick and I throw up" levofloxacin [From Levaquin] AdvReac Mild Nausea Verified 09/16/19 03:29 Consultations 09/16/19 04:12 ED Decision to Admit Stat 09/16/19 08:00 Consult Gastroenterology Routine Ordered Studies 09/16/19 01:59 CT abd pelvis IV con only Urgent Hospital Course (1) Acute lower GI bleeding: Patient evaluated by gastroenterology and no acute plans for upper endoscopy or colonoscopy. Patient reports that recent 3 bowel movements without blood in stool. Repeat Hemoglobins on 09/16/19 have been stable. Last hemoglobin checked on 09/16/19 is 12.5. 09/22/2019 8:00 AM Provider [facility] [place] Department Radiology [facility] 09/22/2019 2:40 PM Provider Nancy Hernandez MD Department Internal Medicine [facility] (Patient should have follow up complete blood count checked by family medical doctor) Hemorrhoids: Note: Use with conservative measures (eg, dietary modifications, warm sitz baths). Rectal cream (preferred): Hydrocortisone 2.5%: Apply sparingly, up to twice daily for rectal pain or bleed from hemorrhoids medication sent electronically to [facility] [address] [place] [address] [place] [address] continue home dose omeprazole Mild hypokalemia -serum potassium 3.4 hypertension -continue home dose atenolol Viral Upper respiratory Tract infection suspected -supportive care at home Total Time Total Time Spent Total Time Spent (In Minutes): 40 minutes Total Time Includes: Examination of the Patient, Discharge Planning, Medication Reconciliation and Communication With Other Providers Discharge Plan Discharge Items Patient Disposition: Home - Self-Care Reason For Visit: LGIB Discharge Diagnosis: Acute lower Gastrointestinal bleeding, Mild hypokalemia, Hypertension, Viral Upper respiratory Tract infection suspected Condition on Discharge: Good Activity: Resume your previous activity Non-emergency contact: Primary Care Provider Call non-emergency contact if: you have any medication questions Follow-up/Referrals: Jasmina Taylor MD [Primary Care Provider] - Diet: Regular Addtl Attending Provider Instructions: Patient evaluated by gastroenterology and no acute plans for upper endoscopy or colonoscopy. Patient reports that recent 3 bowel movements without blood in stool. Repeat Hemoglobins on 09/16/19 have been stable. Last hemoglobin checked on 09/16/19 is 12.5. 09/22/2019 8:00 AM Provider [facility] [place] Department Radiology [facility] 09/22/2019 2:40 PM Provider Nancy Hernandez MD Department Internal Medicine [facility] (Patient should have follow up complete blood count checked by family medical doctor) Addtl Ledge Man Provider Instructions: Hemorrhoids: Note: Use with conservative measures (eg, dietary modifications, warm sitz baths). Rectal cream (preferred): Hydrocortisone 2.5%: Apply sparingly, up to twice daily for rectal pain or bleed from hemorrhoids medication sent electronically to [address] [place]eny Gonsales, [place] [address] continue home dose omeprazole Pending Studies at Discharge: No Stand-Alone Forms: [facility] [employer], Smoking Cessation Medications and DC Order Prescriptions: Continued atenolol 25 mg Tablet 25 mg PO QAM RF: 0 omeprazole 20 mg Capsule,Delayed Release(Dr/Ec) 20 mg PO BID RF: 0 albuterol sulfate [Ventolin HFA] 90 mcg/actuation Hfa Aerosol Inhaler 1 puff INHALATION Q6H PRN (Reason: Shortness Of Breath) RF: 0 Flovent HFA 44 mcg/actuation Hfa Aerosol Inhaler 2 inh INHALATION BID PRN (Reason: Shortness Of Breath Or Wheezing) RF: 0 rosuvastatin [Crestor] 5 mg Tablet 5 mg PO QAM RF: 0 coenzyme Q10 [Co Q-10] 200 mg Capsule 200 mg PO QAM RF: 0 Discharge Orders: Discharge Order (Routine); Ordered 09/16/19 Ordered By: Viktor Morgan Admission Data Admit Date/Time: 09/16/19 04:51 Attending Provider: Viktor Morgan Admit Provider: Ryan Reeves Primary Care Provider: Jasmina Taylor Other Providers: Ryan Reeves ; Elidia Mauricio
== END 2019-09-16 15:50 | disposition home or self-care (01) ==
LOC: 2W 01:41 → ED 01:41 → 2W 05:23

== ENCOUNTER 2024-05-11 12:28 | Inpatient (IN) ==
--- NOTE | 2024-05-11 12:35 | Emergency Department Note ---
Impression & Plan Hypertensive emergency, Chest pain, Family history of coronary artery disease ED Provider Note NAME: BRIANNA GALINDO AGE: 73 SEX: F : 1950 ARRIVES VIA: Walk-In INFORMANT: Patient, significant other, triage note ED PROVIDER(S): Theron Zhu MD CHIEF COMPLAINT: Chest pain MEDICAL DECISION MAKING: Patient presents due to concern for chest pain. IV was established and blood work was obtained. Patient was noted to be hypertensive here in the department. Current pain that she describes 4 out of 10 at its peak was a 6 out of 10. Blood work shows a normal white count H&H and platelet count. Kidney function is unremarkable. Initial troponin is negative. EKG without signs of obvious ischemic change. Patient does have significant cardiac risk factors. Patient denies any prior history of cardiac catheterization and has not had a stress test in about 2 years. The patient also reports that due to issues with her knees she does require nuclear stress test. Unable to obtain at this time of day. Given these concerns and high risk cardiac in nature do believe the patient would benefit from further monitoring and testing. Patient was ordered nitro and aspirin. Patient had virtual resolution of her symptoms. There could be a hypertensive component. Patient's blood pressure did improve with the nitro and no longer has any chest pain. I did speak the on-call hospitalist service Dr. Cox and the patient was admitted to the medicine service. Critical Care: I have personally spent 35 minutes of critical care time in direct management of this patient. This includes bedside care, interpretation of diagnostic studies, and testing, discussion with consultants, patient, and family members, and other require inpatient management activities. This 35 minutes is in excess of all separately billable procedures. Discussion w/ other healthcare providers: Dr. Cox inpatient medicine service [place] Prior /Outside records reviewed: None Differential diagnosis: Cardiac ischemia, aortic dissection, pulmonary embolism, pneumothorax, pneumonia, pericarditis, myocarditis, GERD, cholecystitis, pancreatitis, musculoskeletal, as well as other pathologies were considered. Diagnostics, as interpreted by me: ECG: Normal sinus rhythm, rate of 70, normal intervals, left axis deviation no ST elevations T wave version in lead III. No significant change from comparison August 28, 2022. Cardiac monitoring: An order was placed for continuous cardiac monitoring. The monitor shows a rate of 72 with sinus rhythm. Patient was placed on pulse oximetry Medical decision rules: Heart score, Wells score Imaging studies: I informally interpreted the patient's chest x-ray does not show obvious pneumonia or pneumothorax with formal report to follow. HPI: Patient presents due to concern for chest pains and elevated blood pressure. The patient states that she was seen in the last week at [facility] for elevated blood pressure and was advised to increase her dose of lisinopril from 10 to 20 mg. The patient has been taking 10 mg in the morning as well as 10 in the evening. The patient denies any alcohol tobacco or drug use. No supplements or stimulants no caffeine use. Patient reports though that today she did develop some chest pains that she describes as a heaviness located in the left upper chest with some associated arm tingling/numbness. Patient denies any slurred speech or facial droop no headache. No history of stroke or mini stroke. Significant cardiac history and family reported mother and sister both of MIs in their 60s. Patient denies any specific exertional symptoms no nausea vomiting or diaphoresis. Patient denies any leg swelling or calf pain no history of DVT or PE. No recent surgeries procedures or hospitalizations no recent prolonged car plane travel the patient denies any cough or fever. Patient does not take nothing for symptoms this morning. Patient did notice that her blood pressure was elevated. PAST MEDICAL HISTORY: See Below PAST SURGICAL HISTORY: See Below SOCIAL HISTORY: See Below HOME MEDICATIONS: See Below ALLERGIES: See Below VITALS: See Below PHYSICAL EXAMINATION: GENERAL: NAD, non-toxic. Wearing glasses. EYE EXAM: Normal conjunctiva. PERRL, no anisocoria and EOM's grossly intact w/o pain. OROPHARYNX: Moist mucus membranes, grossly normal dentition. NECK: Trachea midline, no stridor. Supple, no nuchal rigidity, no adenopathy, non-tender. No signs of meningismus. FROM of the neck with good chin to chest and neck extension. LUNGS: Clear to auscultation. Normal chest wall mechanics. HEART: NSR, no MRG. ABDOMEN: Abdomen soft, non-tender, no masses, no rebound or guarding. BACK: No CVA TTP. SKIN: No rashes and no bruising. UPPER EXTREMITIES: Upper extremities are grossly normal. LOWER EXTREMITIES: Grossly normal, no edema. Negative Homans' sign bilaterally. NEURO EXAM: A&O x3, cranial nerves II-XII grossly intact, normal speech, moves all 4 extremities. Past Med/Surg History Problem List (Updated 05/12/24 @ 07:10 by Theron Zhu MD) Family history of coronary artery disease (Acute) Chest pain (Acute) Hypertensive emergency (Acute) Chest pain Acute lower GI bleeding Rectal bleed (Acute) Bronchitis (Acute) Rectal bleeding Gastroenteritis (Acute) History of diverticulitis (Chronic) HTN (hypertension) (Chronic) Encounter for pre-operative examination Diarrhea (Acute) Nausea and vomiting (Acute) Anterior T wave inversion (Acute) Acute electrocardiogram changes (Acute) Abdominal pain, epigastric (Acute) Discharge planning issues Encounter for pre-operative examination Asthma (Chronic) RARELY USES PRN INH GERD (gastroesophageal reflux disease) (Chronic) Osteoarthritis (Chronic) Medical History (Updated 05/12/24 @ 07:10 by Theron Zhu MD) History of basal cell carcinoma Diverticular disease Valvular heart disease "LEAKY VALVE" - FOLLOWS W/ DR. DE SANTIAGO Hypertension Hyperlipidemia Surgical History History of cataract surgery LEFT History of basal cell carcinoma (BCC) excision History of hysterectomy History of esophagogastroduodenoscopy (EGD) History of colonoscopy Family History Sister Diabetes Brother Diabetes Other Heart disease Hypertension Social History Smoking Status: Never smoker Second Hand Exposure: No; Do You Dip or Chew Tobacco: No; Hx Alcohol Use: No Hx Substance Use: No Preferred Language: Syriac Communication Ability: Effective Visual Impairment: Limited Hearing Ability: Normal Millinery Salesperson Required: No Beliefs That Will Affect Care: None marital status: Current Living Situation: Spouse Other Information That Helps Us Care for You: No Feels Safe at Home: Yes Safety Concerns: Feels Safe At This Time Assistive Devices: None, Cane and Walker Allergies Allergies Allergy/AdvReac Type Severity Reaction Status Date / Time Sulfa (Sulfonamide Allergy Intermediate Hives Verified 03/04/24 13:29 Antibiotics) codeine AdvReac Intermediate "deathly Verified 03/04/24 13:29 sick and I throw up" levofloxacin [From Levaquin] AdvReac Mild Nausea Verified 03/04/24 13:29 Home Meds Home Medications Medication Instructions Recorded Confirmed coenzyme Q10 200 mg capsule (Co 200 mg PO QAM 02/12/19 05/11/24 Q-10) aspirin 81 mg tablet,delayed 81 mg PO Q OTHER DAY 08/17/20 05/11/24 release (Ousmane Low Dose Aspirin) fluticasone propionate 50 2 spray intranasal DAILY PRN 08/17/20 05/11/24 mcg/actuation nasal Allergy Symptoms spray,suspension pantoprazole 40 mg tablet,delayed 40 mg PO DAILYBB 08/28/22 05/11/24 release atenolol 50 mg tablet 50 mg PO QAM 03/04/24 05/11/24 lisinopril 10 mg tablet 10 mg PO BID 03/04/24 05/11/24 mirtazapine 15 mg tablet 15 mg PO HS 03/04/24 05/11/24 multivitamin 1 tab PO QA 03/04/24 05/11/24 pravastatin 40 mg tablet 40 mg PO HS 03/04/24 05/11/24 Results & Data (ED) Vital Signs Vital Signs - 24 hr 05/11/24 12:32 05/11/24 12:48 05/11/24 13:09 Temperature 36.1 C L Temperature Source Temporal Artery Scan Pulse Rate 69 71 70 Pulse Rate from SpO2 Sensor 66 Respiratory Rate 20 17 Respiratory Effort / Characteristics Non-Labored Spontaneous Respiratory Depth Normal Blood Pressure 162/107 H 149/97 H Blood Pressure Mean 125 114 Pulse Oximetry 99 97 Oxygen Delivery Method Room Air Room Air Sepsis Recent Fever Within 48 Hours No Sepsis New/Unexplained Change in Mental Status N/A Sepsis Action Taken by Nursing No Action Required 05/11/24 13:14 05/11/24 13:30 05/11/24 13:54 Temperature Temperature Source Pulse Rate 65 Pulse Rate from SpO2 Sensor 64 Respiratory Rate 15 Respiratory Effort / Characteristics Respiratory Depth Blood Pressure 155/106 H Blood Pressure Mean 111 Pulse Oximetry 98 96 Oxygen Delivery Method Room Air Sepsis Recent Fever Within 48 Hours Sepsis New/Unexplained Change in Mental Status Sepsis Action Taken by Nursing 05/11/24 14:00 05/11/24 14:00 05/11/24 14:27 Temperature Temperature Source Pulse Rate 63 65 Pulse Rate from SpO2 Sensor 63 65 Respiratory Rate 17 13 Respiratory Effort / Characteristics Respiratory Depth Blood Pressure 145/98 H 145/98 H 128/87 Blood Pressure Mean 113 110 100 Pulse Oximetry 96 96 Oxygen Delivery Method Room Air Sepsis Recent Fever Within 48 Hours Sepsis New/Unexplained Change in Mental Status Sepsis Action Taken by Alf Medications Current Medication List: was personally reviewed by me Laboratory Data Attestation: I reviewed the patient's lab results. 05/12/24 06:16 05/12/24 06:16 Lab Results 05/11/24 Range/Units 12:49 WBC 6.32 (4.8-10.8) K/ul RBC 4.99 (4.20-5.40) M/uL Hgb 14.8 (12.0-16.0) g/dl Hct 43.7 (37.0-47.0) % MCV 87.6 (80.0-100.0) fL MCH 29.7 (25.0-34.0) pg MCHC 33.9 (32.0-36.0) g/dL RDW Std Deviation 41.4 (36.4-46.3) fL RDW Coeff of [place] 13.1 (11.5-14.5) % Plt Count 189 (130-400) K/uL MPV 10.6 (9.4-12.4) fL Immature Gran % (Auto) 0.5 % Neut % (Auto) 62.1 % Lymph % (Auto) 26.1 % Mills % (Auto) 8.7 % Eos % (Auto) 2.1 % Baso % (Auto) 0.5 % Neut # (Auto) 3.93 (1.40-6.50) K/uL Lymph # (Auto) 1.65 (1.20-3.40) K/uL Mills # (Auto) 0.55 (0.11-0.59) K/uL Eos # (Auto) 0.13 (0.00-0.50) K/uL Baso # (Auto) 0.03 (0.00-0.20) K/uL Immature Gran # (Auto) 0.03 (0.01-0.20) K/uL Sodium 140 (136-145) mmol/L Potassium 3.7 (3.5-5.1) mmol/L Chloride 107 (98-107) mmol/L Carbon Dioxide 27 (21-32) mmol/L Anion Gap 6 (3-11) BUN 19 (6-23) mg/dl Creatinine 0.96 (0.6-1.2) mg/dl Est Cr Clr Drug Dosing 57.0 ml/min Est GFR ( Amer) 68.5 ml/min Est GFR (Non-Af Amer) 59.1 ml/min BUN/Creatinine Ratio 19.8 (10-20) Glucose 94 (70-99(Fasting)) mg/dl Calcium 9.7 (8.6-10.3) mg/dl Total Bilirubin 0.7 (0.2-1.0) mg/dl AST 21 (13-39) U/L ALT 22 (7-52) U/L Alkaline Phosphatase 64 (34-104) U/L Troponin I High Sens 4.8 (0-14) pg/ml Total Protein 7.8 (6.0-8.3) gm/dl Albumin 4.5 (3.4-5.0) gm/dl Globulin 3.3 (2.5-4.0) gm/dl Albumin/Globulin Ratio 1.4 (0.9-2) Lipase 52 (11-82) U/L Administered Medications Heparin Sodium (Porcine) (Heparin Sod 5,000 Unit/0.5 Ml Vial) 5,000 units SQ Q12 CESAR Stop: 06/10/24 20:59 Last Admin: 05/11/24 21:18 Dose: 5,000 units Documented By: CRYSTAL Lisinopril (Lisinopril 10 Mg Tab) 10 mg PO BID CESAR Stop: 06/10/24 20:59 Last Admin: 05/11/24 21:18 Dose: 10 mg Documented By: CRYSTAL Pravastatin Sodium (Pravastatin Sod 40 Mg Tab) 40 mg PO HS CESAR Stop: 06/10/24 20:59 Last Admin: 05/11/24 21:17 Dose: 40 mg Documented By: CRYSTAL Discontinued Medications Aspirin (Aspirin Chew 324 Mg) 324 mg PO NOW STA Stop: 05/11/24 14:02 Last Admin: 05/11/24 14:09 Dose: 324 mg Documented By: LETY Nitroglycerin (Nitroglycerin Sl 0.4 Mg/Tab Tab) 0.4 mg SL NOW STA Stop: 05/11/24 14:02 Last Admin: 05/11/24 14:09 Dose: 0.4 mg Documented By: LETY Nitroglycerin (Nitroglycerin 2% Ointment 30gm Tube) 0.5 inch EXT Q6H CESAR Stop: 06/10/24 19:59 Last Admin: 05/12/24 03:20 Dose: Not Given Documented By: Admin: 05/11/24 23:41 Dose: Not Given Documented By: MMG Imaging Data Radiologist's Impression: Chest X-Ray 05/11/24 12:48 XR chest 1V portable HISTORY: Chest pain, nonspecific COMPARISON: Chest 08/28/2022. FINDINGS: No pneumothorax. No pleural effusions. A few bibasilar linear densities favor subsegmental atelectasis or scarring. This is similar to the prior study. Otherwise, no new focal lung consolidations to suggest a pneumonia. No evidence for pulmonary edema. The cardiac silhouette remains mildly enlarged. There is a tortuous thoracic aorta again noted. No acute fractures. IMPRESSION: No significant change compared to the prior study. No acute process. ACT 112: Negative or not required by law. Electronically signed by: Diaz Rubio M.D. 05/11/2024 2:20 PM Discharge Plan Visit Data Chief Complaint: Chest Pain Stated Complaint: DISCOMFORT IN CHEST, BP HIGH ED Provider: Theron Zhu Discharge Problem: Hypertensive emergency, Chest pain, Family history of coronary artery disease Patient Disposition: Home - Self-Care Discharge Instructions Interventions: ED Discharge Assessment Last Done: 05/11/24 19:22 Discharge Problem: Chest pain Qualifiers: Chest pain type: unspecified Qualified Code(s): R07.9 - Chest pain, unspecified
[2024-05-11 13:19] LABS: Basophils # (auto) 0.03 K/uL (0.00-0.20); Basophils % (auto) 0.5 %; Eosinophils # (auto) 0.13 K/uL (0.00-0.50); Eosinophils % (auto) 2.1 %; Hematocrit (blood only) 43.7 % (37.0-47.0); Hemoglobin 14.8 g/dl (12.0-16.0); Immature Granulocytes # (auto) 0.03 K/uL (0.01-0.20); Immature Granulocytes % (auto) 0.5 %; Lymphocytes # (auto) 1.65 K/uL (1.20-3.40); Lymphocytes % (auto) 26.1 %; Mean Corpuscular Hemoglobin 29.7 pg (25.0-34.0); Mean Corpuscular Hgb Conc 33.9 g/dL (32.0-36.0); Mean Corpuscular Volume 87.6 fL (80.0-100.0); Mean Platelet Volume 10.6 fL (9.4-12.4); Monocytes # (auto) 0.55 K/uL (0.11-0.59); Monocytes % (auto) 8.7 %; Neutrophils # (auto) 3.93 K/uL (1.40-6.50); Neutrophils % (auto) 62.1 %; Platelet Count 189 K/uL (130-400); RDW Coefficient of Variation 13.1 % (11.5-14.5); RDW Standard Deviation 41.4 fL (36.4-46.3); Red Blood Count 4.99 M/uL (4.20-5.40); White Blood Count 6.32 K/ul (4.8-10.8)
[2024-05-11 13:24] LABS: Albumin Globulin Ratio 1.4 (0.9-2); Albumin Level 4.5 gm/dl (3.4-5.0); BUN Creatinine Ratio 19.8 (10-20); Bilirubin,Total 0.7 mg/dl (0.2-1.0); Calcium 9.7 mg/dl (8.6-10.3); Est GFR (African American) 68.5 ml/min; Est GFR (Non-African American) 59.1 ml/min; Globulin 3.3 gm/dl (2.5-4.0); Potassium 3.7 mmol/L (3.5-5.1); Total Protein 7.8 gm/dl (6.0-8.3)
[2024-05-11 13:29] LABS: Troponin I High Sensitivity 4.8 pg/ml (0-14)
[2024-05-11] MEDS: NITROGLYCERIN SL 0.4 MG/TAB TAB SL STA (14:09)
[2024-05-11] MEDS: ASPIRIN CHEW 324 MG PO STA (14:09)
--- NOTE | 2024-05-11 14:21 | XRay Report ---
XR chest 1V portable HISTORY: Chest pain, nonspecific COMPARISON: Chest 08/28/2022. FINDINGS: No pneumothorax. No pleural effusions. A few bibasilar linear densities favor subsegmental atelectasis or scarring. This is similar to the prior study. Otherwise, no new focal lung consolidati ons to suggest a pneumonia. No evidence for pulmonary edema. The cardiac silhouette remains mildly en larged. There is a tortuous thoracic aorta again noted. No acute fractures. IMPRESSION: No significant change compared to the prior study. No acute process. ACT 112: Negative or not required by law. Electronically signed by: Diaz Rubio M.D. 05/11/2024 2:20 PM
--- NOTE | 2024-05-11 14:58 | History & Physical Report ---
Date of Service May 11, 2024 Assessment & Plan (1) Chest pain: Plan Pt is a 73yoF with PMHx significant for hypertension, asthma/pulmonary hypertension, Hx of GI bleed, GERD, IBS presenting with atypical chest pain. Atypical Chest Pain Uncontrolled HTN States left sided chest pressure for days, worsening BP 162/107 on admission despite recent increase to lisinopril 20mg with atenolol 50mg EKG unremarkable Trop x1 wnl Chest XRAY with no acute changes Cycle trop q6h Echo pending AM lipid panel, [id number] Fam Hx of 8 siblings with hx of RI or stent placement Symptoms also possibly in setting of uncontrolled HTN, BP with improvement after po nitro Continue with nitro paste q6h scheduled Continue with home aspirin, pravastatin+ CoQ Continue home lisinopril 10mg BID with atenolol 50mg qAM Continue with telemetry monitoring Cardiology consulted, appreciate recs Continue other home meds as ordered Diet: HH, NPO after midnight DVT prophylaxis: heparin SQ Dispo: admit to PCU/tele History of Present Illness Chief Complaint: Chest Pain Primary Care Provider: Jasmina Taylor MD Pt is a 73yoF with PMHx significant for hypertension, asthma/pulmonary hypertension, Hx of GI bleed, GERD, IBS presenting with atypical chest pain. and brother at bedside helping with the history. Pt states that for the past week she has been having headache and "pains in the neck" so she went to the medical center in [facility] to be evaluated. She states she was told to take 2 lisinopril pills and increase her dose to 20mg a day with her atenolol. She states she has been doing that with no relief. She notes that she has been checking her BP and it remained persistently high. However, she was prompted to come to the ED when she developed chest pressure for the last 2 days that would not go away. Rates it as 4/10 on the left. Notes occasional palpitations. States she took some tylenol to help but it did not go away. Notes she cannot take ibuprofen due to her medical history. Denies recent activity, states that the pains have actually made her less active. Denies SOB or a Hx of blood clots. States she has chronic cough and rhinorhea and those symptoms remain unchanged. Denies N/V/D. Denies Dysuria. States there is increased urinary frequency but notes that she has been drinking more water over the past few days. Denies a Hx of reflux but notes a hx of IBS that she states she takes pantoprazole for. States that her mother and sister from heart attacks. States brother in the room had stents placed. They note that her eight siblings all have "heart stuff" that include Hx of RI and stent and pacemaker placement. Was given aspirin 324mg and po Nitrostat 0.4mg in the ED. Allergies Allergy/AdvReac Type Severity Reaction Status Date / Time Sulfa (Sulfonamide Allergy Intermediate Hives Verified 03/04/24 13:29 Antibiotics) codeine AdvReac Intermediate "deathly Verified 03/04/24 13:29 sick and I throw up" levofloxacin [From Levaquin] AdvReac Mild Nausea Verified 03/04/24 13:29 Home Medications Medication Instructions Recorded Confirmed Type coenzyme Q10 200 mg capsule (Co 200 mg PO QAM 02/12/19 05/11/24 History Q-10) aspirin 81 mg tablet,delayed 81 mg PO Q OTHER DAY 08/17/20 05/11/24 History release (Ousmane Low Dose Aspirin) fluticasone propionate 50 2 spray intranasal DAILY PRN 08/17/20 05/11/24 History mcg/actuation nasal Allergy Symptoms spray,suspension pantoprazole 40 mg tablet,delayed 40 mg PO DAILYBB 08/28/22 05/11/24 History release atenolol 50 mg tablet 50 mg PO QAM 03/04/24 05/11/24 History lisinopril 10 mg tablet 10 mg PO BID 03/04/24 05/11/24 History mirtazapine 15 mg tablet 15 mg PO HS 03/04/24 05/11/24 History multivitamin 1 tab PO QAM 03/04/24 05/11/24 History pravastatin 40 mg tablet 40 mg PO HS 03/04/24 05/11/24 History Past Med/Surg History Problem List (Updated 05/11/24 @ 15:12 by Michaela Cox MD) Chest pain Acute lower GI bleeding Rectal bleed (Acute) Bronchitis (Acute) Rectal bleeding Gastroenteritis (Acute) History of diverticulitis (Chronic) HTN (hypertension) (Chronic) Encounter for pre-operative examination Diarrhea (Acute) Nausea and vomiting (Acute) Anterior T wave inversion (Acute) Acute electrocardiogram changes (Acute) Abdominal pain, epigastric (Acute) Discharge planning issues Encounter for pre-operative examination Asthma (Chronic) RARELY USES PRN INH GERD (gastroesophageal reflux disease) (Chronic) Osteoarthritis (Chronic) Medical History (Updated 05/11/24 @ 15:12 by Michaela Cxo MD) History of basal cell carcinoma Diverticular disease Valvular heart disease "LEAKY VALVE" - FOLLOWS W/ DR. DE SANTIAGO Hypertension Hyperlipidemia Surgical History History of cataract surgery LEFT History of basal cell carcinoma (BCC) excision History of hysterectomy History of esophagogastroduodenoscopy (EGD) History of colonoscopy Family History Sister Diabetes Brother Diabetes Other Heart disease Hypertension Social History Smoking Status: Never smoker Second Hand Exposure: No; Do You Dip or Chew Tobacco: No; Hx Alcohol Use: No Hx Substance Use: No Preferred Language: Divehi Communication Ability: Effective Visual Impairment: Limited Hearing Ability: Normal Wired Sweatband Cutter Required: No Beliefs That Will Affect Care: None marital status: Current Living Situation: Spouse Other Information That Helps Us Care for You: No Feels Safe at Home: Yes Safety Concerns: Feels Safe At This Time Assistive Devices: None, Cane and Walker Review of Systems Review of Systems: All systems reviewed & are unremarkable except as noted in Subjective Physical Exam Physical Exam: General: Alert, oriented. No acute distress Skin: No noted rashes or bruises Psych: Appropriate mood and affect Neuro: No gross deficits while sitting up in bed HEENT: NC/AT Chest: Nontender to palpation. CV: RRR Resp: Breath sounds clear bilaterally, no increased effort of breathing. Abdomen: Soft, nontender Extremities: No edema in lower extremities bilaterally Results & Data Results & Data Vital Signs (Past 12 Hours) Vital Signs Temp Pulse Resp BP Pulse Ox O2 Del Method 05/11/24 14:00 63 17 145/98 H 96 05/11/24 13:54 65 15 96 05/11/24 13:30 155/106 H 05/11/24 13:14 98 Room Air 05/11/24 13:09 70 17 149/97 H 97 Room Air 05/11/24 12:48 71 05/11/24 12:32 36.1 C L 69 20 162/107 H 99 Room Air Diagnostic Findings Chest X-Ray 05/11/24 12:48 XR chest 1V portable HISTORY: Chest pain, nonspecific COMPARISON: Chest 08/28/2022. FINDINGS: No pneumothorax. No pleural effusions. A few bibasilar linear densities favor subsegmental atelectasis or scarring. This is similar to the prior study. Otherwise, no new focal lung consolidations to suggest a pneumonia. No evidence for pulmonary edema. The cardiac silhouette remains mildly enlarged. There is a tortuous thoracic aorta again noted. No acute fractures. IMPRESSION: No significant change compared to the prior study. No acute process. ACT 112: Negative or not required by law. Electronically signed by: Diaz Rubio M.D. 05/11/2024 2:20 PM
[2024-05-11] MEDS ORDERED: ACETAMINOPHEN 500 MG TAB PO PRN (15:44)
[2024-05-11] MEDS ORDERED: ONDANSETRON INJ 2 MG/ML 2 ML VIAL IV PRN (15:44)
[2024-05-11] MEDS ORDERED: MELATONIN 3 MG TAB PO PRN (20:50)
[2024-05-11] MEDS ORDERED: MIRTAZAPINE TAB 15 MG TAB PO SCH (21:00)
[2024-05-11] MEDS: PRAVASTATIN SOD 40 MG TAB PO SCH (21:17)
[2024-05-11] MEDS: lisinopril 10 MG TAB PO SCH (21:18)
[2024-05-11] MEDS: HEPARIN SOD 5,000 UNIT/0.5 ML VIAL SQ SCH (21:18)
[2024-05-11 23:21] LABS: Appearance Urine Clear (Clear); Bilirubin Urine Negative (Negative); Blood Urine Negative (Negative); Color Urine Yellow; Glucose Urine UA Negative (Negative); Ketones Urine Negative (Negative); Leukocyte Esterase Urine Negative (Negative); Nitrite Urine Negative (Negative); Protein Urine Negative (Negative); Specific Gravity Urine 1.012 (1.000-1.030); Urobilinogen Urine Negative (Negative)
[2024-05-11] MEDS: NITROGLYCERIN 2% OINTMENT 30GM TUBE EXT SCH (23:41)
--- OUTSIDE RECORDS SUMMARY | 2024-05-12 03:01 | External Medical Summary | Summary of Care ---
Author Name Unknown Organization [facility] Address [address] [place] [address] Phone [phone] Care Team Providers Care Internet Webmaster Name Role Phone Unavailable Primary Care Provider Unavailabl e Reason for Visit * Reason Onset Date Comments Blood Pressure Check 05/08/2024 Encounter Details Date Type Department Care Team (Late st Contact Info) Description 05/08/2024 Telephone Family Medicine [address] [place] [phone] Rosalee Mckeon PA-C [address] [place] [address] [place] [phone] Blood Pressure Check Allergies Active Allergy Reactions Criticality Noted Date Comments Baclofen 04/26/2022 Vertigo/extreme dizziness Codeine 02/18/2013 "deathly sick" Levofloxacin Nausea/vomiting 08/12/2018 Sulfa Antibiotics 08/25/2001 Rash documented as of this encounter (statuses as of 05/08/2024) Medications Medication Sig Dispensed Refills Start Date End Date Status fluticasone (FLONASE) 50 MCG/ACT nasal spray Administer 2 Sprays into each nostril in the morning. 1 Inhaler 5 01/13/2018 Active Coenzyme Q10 10 MG Capsule Take 2 Capsules by mouth in the morning. 02/12/2019 Active Multiple Vitamins-Minerals (MULTIVITAMIN ADULTS) TABS Take 1 Tab by mouth daily. Active aspirin enteric coated 81 MG TBEC Take 1 Tablet by mouth in the morning. 05/24/2020 Active Culturelle Pro-Well Oral Capsule Take 2 Caps by mouth daily. Active Benefiber Oral Powder Take by mouth every evening. Takes 2 tsp daily with supper Active Polyethylene Glycol 3350 17 GM Oral Packet Take 1 Packet by mouth in the morning. Active Hydrocortisone 2.5 % External CreamIndications: Hemorrhoids, unspecified hemorrhoid type Apply topically to affected area 2 times a day. 28 g 01/14/2023 Active Atenolol 50 MG Oral Tablet (Tenormin)Indicat ions:HTN, goal below 140/90 Take 1 Tablet by mouth in the morning. 90 Tablet 1 10/28/2023 Active Pantoprazole Sodium 40 MG Oral Tablet Delayed Release (Protonix)Indicat ions:Gastroesopha geal reflux disease without esophagitis Take 1 Tablet by mouth in the morning. 30 minutes before the first meal of the day. Do not crush, split or chew the tablet. 90 Tablet 3 10/28/2023 Active Dicyclomine HCl 10 MG Oral Capsule (Bentyl) Take 1 Capsule by mouth 2 times a day as needed for Cramping. 180 Capsule 2 10/28/2023 Active Pravastatin Sodium 40 MG Oral Tablet (Pravachol) Take 1 Tablet by mouth daily with dinner 100 Tablet 1 02/24/2024 Active Mirtazapine 15 MG Oral Tablet (Remeron) Take 1 Tablet by mouth at bedtime. 90 Tablet 03/13/2024 Active Triamcinolone Acetonide 0.1 % External Cream (Aristocort) Apply topically to affected area 2 times a day. Apply to affected areas 45 g 1 03/30/2024 Active Lisinopril 20 MG Oral Tablet (Prinivil)Indicat ions:HTN, goal below 140/90 Take 1 Tablet by mouth in the morning. 30 Tablet 11 05/08/2024 Active Lisinopril 10 MG Oral Tablet (Prinivil)Indicat ions:HTN, goal below 140/90 Take 1 Tablet by mouth in the morning. 90 Tablet 3 10/28/2023 4 Discontinue d(Refill) documented as of this encounter (statuses as of 05/08/2024) Active Problems Problem Noted Date Diagnosed Date Primary osteoarthritis of right knee 03/13/2024 Hiatal hernia 03/13/2024 Seasonal allergic rhinitis due to pollen 023 History of Clostridioides difficile infection Primary insomnia 03/14/2021 Multinodular thyroid 08/19/2020 Family history of premature CAD 05/24/2020 Hx of actinic keratosis 05/21/2019 Dyslipidemia, goal LDL below 100 01/22/2019 Generalized osteoarthritis of multiple sites Mild intermittent asthma without complication Frequent PVCs 11/27/2016 HTN, goal below 140/90 05/12/2015 Gastroesophageal reflux disease without esophagi tis 01/26/2013 ADVANCE DIRECTIVE INFORMATION 05/20/2006 Overview: No, Advance Directive brochure given to patient at prior appointment. documented as of this encounter (statuses as of 05/08/2024) Resolved Problems Problem Noted Date Diagnosed Date Resolved Date Multinodular goiter 08/13/2023 08/14/20 Nephrolithiasis 03/14/2021 08/13/2023 Chronic kidney disease, stage 3a 02/28/2021 07/17/2022 Overview: Per CKD protocol Hypertensive kidney disease with stage 3a chronic kidney disease 08/29/2020 08/13/2022 Overview: Per CKD protocol Asthma without status asthma ticus, mild intermittent, uncomplicated 08/19/2020 08/19/2020 Hypertensive kidney disease with stage 3 chronic kidney disease 02/01/2020 09/01/2020 Overview: Per CKD protocol Kidney disease, chronic, sta ge III (GFR 30-59 ml/min) 08/31/2019 03/03/2020 Overview: Per CKD protocol Overweight (BMI 25.0-29.9) 02/18/2019 1 Pulmonary hypertension 01/22/201908/19 Chronic obstructive pulmonary disease 01/22/2019 01/22/2019 Hx of basal cell carcinoma 02/18/2013 0 11/24/2021 Overview: BCC L nasal bridge 08/2014, L nasal dorsum 2011 Rhinitis, non-allergic 01/26/201301/31 Overview: acute Other diseases of trachea and bronchus 04/13/2010 05/12/2015 HTN, goal below 140/90 09/07/200911/24 Overview: Modified per HTN protocol #16. Dyslipidemia, goal to be determined 02/17/2009 11/09/2013 Thyroid nodule 11/24/2021 documented as of this encounter (statuses as of 05/08/2024) Immunizations Name Administration Dates Next Due COVID-19 mRNA, LNP-s, No Pre serve, 2-Dose Series ([employer]) 08/22/2021,12/14/2020,11/23/2020 COVID-19, LNP-s, No Preserve , Clive-sucrose, Ages 12+ ([employer]) 02/13/2022 COVID-19, MRNA-LNP, 23-24, P F, 30 MCG/0.3 mL, 12 YRS AND ABOVE, IM ([employer]) 08/23/2023 Covid-19, Mrna, Lnp-s, Pf, B ivalent, 30 Mcg, IM, 12 yrs and above ([employer]) 07/24/2022 Pneumococcal Conjugate Vacc, 13 Valent (Prevnar) 11/27/2016 Pneumococcal Polysaccharide PPV23 (Pneumovax) 01/22/2019,11/09/2013 Season Influenza, Quad, PF, Adjuvanted, 65+ Yrs, IM (FLUAD) 07/09/2020 Seasonal Influenza, PF, 6 M & above, IM , (FluLaval or Fluzone) 07/15/2018 Seasonal Influenza, Quadriva lent Hd (Fluzone Hd) 07/06/2023,07/07/2022,06/29/2021 Seasonal Influenza, Quadriva lent, No Preserve, IM 07/09/2017,08/04/2016,08/06/2015 Seasonal Influenza, Split, I IV3, With Preserve, Inj 07/07/2014,08/04/2013,07/10/2012,07/24,08/08/2010,07/12/2009,08/19/2008 ,08/26/2007,08/06/2006 Seasonal Influenza, Trivalen t, Adjuvanted, 65+ yrs 07/28/2019 TDAP, Age 7 and older, IM (Adacel) 07/14/2008 Varicella Zoster Vaccine (Adult) 02/19/2013 Zoster Vaccine Recombinant (Shingrix) 05/16/2021 ,03/14/2021 documented as of this encounter Social History Tobacco Use Types Packs/Day Years Used Date Smoking Tobacco: Never Smokeless Tobacco: Never Alcohol Use Standard Drinks/Week Comments No 0 (1 standard drink = 0.6 oz pur e alcohol) PHQ-2 Answer Date Recorded PHQ Adult Total Score 0 06/12/2023 Hunger Vital Sign Answer Date Recorded Within the past 12 months, y ou worried that your food would run out before you got the money to buy more. Never true 06/12/20 Within the past 12 months, t he food you bought just didn't last and you didn't have money to get more. Never true 06/12/2023 Sex and Gender Information Value Date Recorded Sex Assigned at Female 05/10/2021 9:04 AM EDT Gender Identity Female 05/10/2021 9:04 AM EDT Sexual Orientation Straight 05/10/2021 9: 04 AM EDT Job Start Date Occupation Industry Not on file Not on file Not on file documented as of this encounter Miscellaneous Notes * Telephone Encounter - Shannan Ash LPN - 05/08/2024 3:12 PM EDT Called patient, verbalized understanding * Telephone Encounter - Rosalee Mckeon PA-C - 05/08/2024 2:14 PM EDT Increase lisinopril from 10 mg daily to 20 mg daily. Repeat nurse visit BP check in 2-3 weeks. * Telephone Encounter - Shannan Ash LPN - 05/08/2024 9:16 AM EDT Amairani Mcmullen Bill presented for blood pressure check per provider orders. The blood pressure was obtained using the left arm in the sitting position using a adult cuff. The results were charted in Vital Signs. BP Readings from Last 3 Encounters: 05/08/24 148/100 04/03/24 149/75 03/30/24 128/90 BP 148/100 | Pulse 76 Patient complains of headache, pressure in head. Did patient take medications today? Yes Patient was instructed to follow-up with a nurse for a repeat blood pressure check documented in this encounter Plan of Treatment Upcoming Encounters Date Type Department Care Team (Late st Contact Info) Description 06/01/2024 8:[address] [facility] 2nd Floor Cardiology, [address] [place] [phone] 06/01/2024 10:[address] [facility] 2nd Floor Cardiology, [address] [place] [address] 06/01/2024 11:[address] [facility] 2nd Floor Cardiology, [place] [address] [facility] [place] [address] 06/01/2024 1:[address] [facility] 2nd Floor Cardiology, [place] [facility] [place] [address] 06/17/2024 9:00 AM EDT Nurse Only Ancillary [address] [place] [address] [place], Nurse [address] [place] [address] 07/02/2024 9:30 AM EDT Office Visit Cardiology [address] [place] [address] Sarah Antoine PA-C [address] [place] [address] 08/25/2024 1:40 PM EST Office Visit Family Medicine [address] [place] [phone] Jasmina Taylor MD [address] [place] [address] [place] [address] 10/05/2024 2:00 PM EST Office Visit Gastroenterology, [facility] [address] [place] [address] Martha Porter CRNP [address] [place] [address] Scheduled Procedures Name Priority Associated Diagnoses Date/Ti me COLONOSCOPY FLEXIBLE PROXIMA L DIAGNOSTIC Recall Encounter for screening colonoscopy Health Maintenance Due Date Last Done Comments Sigmoidoscopy 1996 DTaP,Tdap,and Td Vaccines (2 - Td or Tdap) 07/14/2018 07/14/2008 Fecal Occult Blood Test 09/16/2020 09/16/2019, 12/05 Cologuard 01/27/2021 01/27/2018 Depression Screening 06/12/2024 06/12/2023 Influenza Vaccine (FLU shot) (#1) 2024 07/06/2023, 07/07/2022, 06/29/2021, Additional history exists Mammogram 11/13/2024 11/13/2023, 10/21, 11/06/2022, Additional history exists Albumin/Creatinine Ratio 12/11/2024 12/11/2021, 12/2018 GFR 02/20/2025 02/21/2024, 08/21, 08/13/2023, Additional history exists DXA Scan 02/27/2025 02/27/2022, 02/18, 01/21/2019, Additional history exists Lipid Panel 04/13/2029 04/13/2024, 12/2023, 12/28/2022, Additional history exists Colonoscopy 03/15/2033 03/15/2023, 02/19, 08/20/2018, Additional history exists Colorectal Cancer Screening 03/15/2033 Pneumococcal Vaccine: 65+ Years Completed 01/22/2019, 11/27/2016, 11/09/2013 Zoster Vaccines Completed 05/16/2021, 02/19, 02/19/2013 *BASELINE EKG FOR HTN Completed 08/13/2023 , 08/28/2022, 08/31/2021, Additional history exists COVID-19 Vaccine Discontinued 08/23/2023, 01/2022, 02/13/2022, Additional history exists HPV (Gardasil) Vaccine Aged Out No lo nger eligible based on patient's age to complete this topic Hepatitis B Vaccine Aged Out No longe r eligible based on patient's age to complete this topic MENINGOCOCCAL (MENACTRA/MENVEO) Aged Out No longer eligible based on patient's age to complete this topic documented as of this encounter Medical Devices Not on filedocumented as of this encounter Visit Diagnoses Diagnosis HTN, goal below 140/90 Unspecified essential hypertension documented in this encounter Advance Directives * Full Code (Latest Code Status on File) Date Activated Date Inactivated Comments 10/02/2021 11:06 AM 10/02/2021 4:56 PM This orde r reflects the patients wishes and were consensually agreed upon. * Full Code Date Activated Date Inactivated Comments 10/02/2021 10:03 AM 10/02/2021 11:06 AM This ord er reflects the patients wishes and were consensually agreed upon.
--- OUTSIDE RECORDS SUMMARY | 2024-05-12 03:01 | External Medical Summary | Summary of Care ---
Author Name Unknown Organization [facility] Address [address] [place] [address] Phone [phone] Care Team Providers Care Office Machine Punch Operator Name Role Phone Unavailable Primary Care Provider Unavailabl e Reason for Visit * Reason Comments Medication Refill Encounter Details Date Type Department Care Team (Late st Contact Info) Description 05/11/2024 Refill Family Medicine [address] [place] [phone] Brody Davis MD [address] [place] [address] [place] [address] HTN, goal below 140/90 Allergies Active Allergy Reactions Criticality Noted Date Comments Baclofen 04/26/2022 Vertigo/extreme dizziness Codeine 02/18/2013 "deathly sick" Levofloxacin Nausea/vomiting 08/12/2018 Sulfa Antibiotics 08/25/2001 Rash documented as of this encounter (statuses as of 05/11/2024) Medications Medication Sig Dispensed Refills Start Date [...] times a day. 28 g 01/14/2023 Active Pantoprazole Sodium 40 MG Oral Tablet [...] the morning. 30 Tablet 11 05/08/2024 Active Atenolol 50 MG Oral Tablet (Tenormin)Indicat ions:HTN, goal below 140/90 Take 1 Tablet by mouth in the morning. 90 Tablet 3 05/11/2024 Active Atenolol 50 MG Oral Tablet (Tenormin)Indicat ions:HTN, goal below 140/90 Take 1 Tablet by mouth in the morning. 90 Tablet 1 10/28/2023 4 Discontinue d(Refill) documented as of this encounter (statuses as of 05/11/2024) Active Problems Problem Noted Date Diagnosed Date [...] as of this encounter (statuses as of 05/11/2024) Resolved Problems Problem Noted Date Diagnosed Date [...] as of this encounter (statuses as of 05/11/2024) Immunizations Name Administration Dates Next Due COVID-19 mRNA, LNP-s, No Pre serve, 2-Dose Series ([employer]) 08/22/2021,12/14/2020,11/23/2020 COVID-19, LNP-s, No Preserve , Clive-sucrose, Ages 12+ ([employer]) 02/13/2022 COVID-19, MRNA-LNP, 23-24, P F, 30 MCG/0.3 mL, 12 YRS AND ABOVE, IM ([employer]) 08/23/2023 Covid-19, Mrna, Lnp-s, Pf, B ivalent, 30 Mcg, IM, 12 yrs and above ([employer]) 07/24/2022 Pneumococcal Conjugate Vacc, 13 Valent (Prevnar) [...] money to buy more. Never true 06/12/20 23 Within the past 12 months, t he [...] encounter Miscellaneous Notes * Telephone Encounter - Barbi Joiner RPh - 05/11/2024 10:44 AM EDT Signed Prescriptions: Disp Refills Atenolol 50 MG Oral Tablet (Tenormin) 90 Tab*3 Sig: Take 1 Tablet by mouth in the morning.Authorizing Provider: BRODY DAVIS User: BARBI JOINER documented in this encounter Plan of Treatment Upcoming Encounters Date Type Department Care Team (Late st Contact Info) Description 06/01/2024 8:30 AM EDT Imaging [facility] Cardiology, [address] [place] [address] 06/01/2024 10:00 AM EDT Imaging [address] [facility] [place] [address] 06/01/2024 11:00 AM EDT Imaging [address] [place] [address] 06/01/2024 1:00 PM EDT Imaging [address] [facility] [place] [address] 06/17/2024 9:00 AM EDT Nurse Only Ancillary [address] [place] [address] [place], Nurse [address] [place] [address] 07/02/2024 9:30 AM EDT Office Visit Cardiology [address] [place] [address] Sarah Antoine PA-C [address] [place] [address] 08/25/2024 1:40 PM EST Office Visit Family Medicine [address] [place] [phone] Jasmina Taylor MD [address] [place] [address] [place] [address] 10/05/2024 2:00 PM EST Office Visit Gastroenterology, [facility] [address] [place] [address] Martha Porter CRNP [address] [place] [address] Scheduled Procedures Name Priority Associated Diagnoses Date/Ti [...] Additional history exists Albumin/Creatinine Ratio 12/11/2024 12/11/2021, 1212/2018 GFR 02/20/2025 02/21/2024, 08/21, 08/13/2023, Additional history exists DXA Scan 02/27/2025 02/27/2022, 02/18, 01/21/2019, Additional history exists Lipid Panel 04/13/2029 04/13/2024, 050 12/2023, 12/28/2022, Additional history exists Colonoscopy 03/15/2033 [...]
--- OUTSIDE RECORDS SUMMARY | 2024-05-12 03:01 | External Medical Summary | Summary of Care ---
Author Name Unknown Organization [facility] Address [address] [place] [address] Phone [phone] Care Team Providers Care Mechanism Inspector Name Role Phone Jasmina Taylor MD Primary Care Provide r Reason for Visit * Reason Comments Outpatient Testing Encounter Details Date Type Department Care Team (Late st Contact Info) Description 04/13/2024 9:50 AM EDT Laboratory Laboratory [address] [place] [phone] [place] [address] Dyslipidemia, goal LDL below 100 Allergies Active Allergy Reactions Criticality Noted Date Comments Baclofen 04/26/2022 Vertigo/extreme dizziness Codeine 02/18/2013 "deathly sick" Levofloxacin Nausea/vomiting 08/12/2018 Sulfa Antibiotics 08/25/2001 Rash documented as of this encounter (statuses as of 04/13/2024) Medications Medication Sig Dispensed Refills Start Date [...] the morning. Active Hydrocortisone 2.5 % External CreamIndications:He morrhoids, unspecified hemorrhoid type Apply topically to affected area 2 times a day. 28 g 01/14/2023 Active Atenolol 50 MG Oral Tablet (Tenormin)Indicatio ns:HTN, goal below 140/90 Take 1 Tablet by mouth in the morning. 90 Tablet 1 10/28/2023 Active Lisinopril 10 MG Oral Tablet (Prinivil)Indicatio ns:HTN, goal below 140/90 Take 1 Tablet by mouth in the morning. 90 Tablet 3 10/28/2023 Active Pantoprazole Sodium 40 MG Oral Tablet Delayed Release (Protonix)Indicatio ns:Gastroesophageal reflux disease without esophagitis Take 1 Tablet [...] affected areas 45 g 1 03/30/2024 Active documented as of this encounter (statuses as of 04/13/2024) Active Problems Problem Noted Date Diagnosed Date [...] as of this encounter (statuses as of 04/13/2024) Resolved Problems Problem Noted Date Diagnosed Date [...] as of this encounter (statuses as of 04/13/2024) Immunizations Name Administration Dates Next Due COVID-19 mRNA, LNP-s, No Pre serve, 2-Dose Series ([employer]) 08/22/2021,12/14/2020,11/23/2020 COVID-19, LNP-s, No Preserve , Clive-sucrose, Ages 12+ (Pfizer) 02/13/2022 COVID-19, MRNA-LNP, 23-24, P F, 30 MCG/0.3 mL, 12 YRS AND ABOVE, IM ([facility]) 08/23/2023 Covid-19, Mrna, Lnp-s, Pf, B ivalent, 30 Mcg, IM, 12 yrs and above ([employer]) 07/24/2022 Pneumococcal Conjugate Vacc, 13 Valent (Prevnar) [...] on file documented as of this encounter Plan of Treatment Upcoming Encounters Date Type Department Care Team (Late st Contact Info) Description 06/01/2024 8:30 AM EDT Imaging [facility] 2nd Floor Cardiology, [address] [place] [address] 06/01/2024 10:00 AM EDT Imaging [facility] 2nd Floor Cardiology, [address] [place] [address] 06/01/2024 11:00 AM EDT Imaging [facility] 2nd Floor Cardiology, [address] [place] [address] 06/01/2024 1:00 PM EDT Imaging [facility] 2nd Floor Cardiology, [address] [place] [address] 06/17/2024 9:00 AM EDT Nurse Only Ancillary [address] [place] [address] [place], Nurse [address] [place] [address] 07/02/2024 9:30 AM EDT Office Visit Cardiology [address] [place] [address] Sarah Antoine PA-C [address] [place] [address] 08/25/2024 1:40 PM EST Office Visit [address] [place] [phone] Jasmina Taylor MD [address] [place] [address] [place] [address] 10/05/2024 2:00 PM EST Office Visit Gastroenterology, [facility] [address] [place] [address] Martha Porter CRNP [address] [place] [address] Pending Results Name Type Priority Associated Diagnoses Date /Time LIPID PANEL WITH DIRECT LDL IF TG IS HIGH Lab Routine Dyslipidemia, goal LDL below 100 04/13/2024 9:31 AM EDT ALT Lab Routine Dyslipidemia, goal LDL below 100 04/13/2024 9:31 AM EDT Scheduled Procedures Name Priority Associated Diagnoses Date/Ti me COLONOSCOPY FLEXIBLE PROXIMA L DIAGNOSTIC Recall Encounter for screening colonoscopy Health Maintenance Due Date Last Done Comments Sigmoidoscopy 1996 DTaP,Tdap,and Td Vaccines (2 - Td or Tdap) 07/14/2018 07/14/2008 Fecal Occult Blood Test 09/16/2020 09/16/2019, 12/05 Cologuard 01/27/2021 01/27/2018 Depression Screening 06/12/2024 06/12/2023 Mammogram 11/13/2024 11/13/2023, 10/21, 11/06/2022, Additional history exists Albumin/Creatinine Ratio 12/11/2024 12/11/2021, 12/12/2018 GFR 02/20/2025 02/21/2024, 08/21, 08/13/2023, Additional history exists DXA Scan 02/27/2025 02/27/2022, 02/18, 01/21/2019, Additional history exists Lipid Panel 02/20/2029 02/21/2024, 12/19, 12/11/2021, Additional history exists Colonoscopy 03/15/2033 03/15/2023, 02/19, 08/20/2018, Additional history exists Colorectal Cancer Screening 03/15/2033 Pneumococcal Vaccine: 65+ Years Completed 01/22/2019, 11/27/2016, 11/09/2013 Zoster Vaccines Completed 05/16/2021, 02/19, 02/19/2013 Influenza Vaccine (FLU shot) Completed 07/06/2023, 07/07/2022, 06/29/2021, Additional history exists COVID-19 Vaccine Discontinued 08/23/2023, 01/2022, 02/13/2022, Additional history exists GARDASIL-HPV IMMUNIZATION SERIES Aged Out No longer eligible based on patient's age to complete this topic Hepatitis B Aged Out No longer eligi ble based on patient's age to complete this topic MENINGOCOCCAL (MENACTRA/MENVEO) Aged Out No longer eligible based on patient's age to complete this topic documented as of this encounter Medical Devices Not on filedocumented as of this encounter Visit Diagnoses Diagnosis Dyslipidemia, goal LDL below 100 Other and unspecified hyperlipidemia documented in this encounter Advance Directives * Full Code (Latest Code Status on File) Date Activated Date Inactivated Comments 10/02/2021 11:06 AM 10/02/2021 4:56 PM This orde r reflects the patients wishes and were consensually agreed upon. * Full Code Date Activated Date Inactivated Comments 10/02/2021 10:03 AM 10/02/2021 11:06 AM This ord er reflects the patients wishes and were consensually agreed upon. Care Teams Mechanism Inspector Relationship Specialty Start Date End Date Jasmina Taylor MD [address] [place] [address] [place] [address] PCP - General Family Medicine 01/21/19 documented as of this encounter
--- OUTSIDE RECORDS SUMMARY | 2024-05-12 03:01 | External Medical Summary | Summary of Care ---
Author Name Unknown Organization [facility] Address [address] [place] [address] Phone [phone] Care Team Providers Care Brim Plater Name Role Phone Jasmina Taylor MD Primary Care Provide r Reason for Visit * Reason Comments Rash Pt here for a rash o coco her body for the last week. Did go to [facility] but the did not have a lab to have anything checked. Pt has been taking benadryl. Pt states that last month her cholesterol med was changed and not sure if that is the cause. Pt denies pain. Encounter Details Date Type Department Care Team (Late st Contact Info) Description 03/30/2024 10:20 AM EDT Office Visit Family Practice [facility] [address] [facility] [place] [address] Fercho Gray MD [address] [facility] [place] [address] Irritant dermatitis* Allergies Active Allergy Reactions Criticality Noted Date Comments Baclofen 04/26/2022 Vertigo/extreme dizziness Codeine 02/18/2013 "deathly sick" Levofloxacin Nausea/vomiting 08/12/2018 Sulfa Antibiotics 08/25/2001 Rash documented as of this encounter (statuses as of 03/30/2024) Medications Medication Sig Dispensed Refills Start Date [...] as of this encounter (statuses as of 03/30/2024) Active Problems Problem Noted Date Diagnosed Date [...] as of this encounter (statuses as of 03/30/2024) Resolved Problems Problem Noted Date Diagnosed Date [...] as of this encounter (statuses as of 03/30/2024) Immunizations Name Administration Dates Next Due COVID-19 mRNA, LNP-s, No Pre serve, 2-Dose Series ([employer]) 08/22/2021,12/14/2020,11/23/2020 COVID-19, LNP-s, No Preserve , Clive-sucrose, Ages 12+ ([employer]) 02/13/2022 COVID-19, MRNA-LNP, 23-24, P F, 30 MCG/0.3 mL, 12 YRS AND ABOVE, IM ([employer]-Comirnat) 08/23/2023 Covid-19, Mrna, Lnp-s, Pf, B ivalent, 30 Mcg, IM, 12 yrs and above ([employer]) 07/24/2022 Pneumococcal Conjugate Vacc, 13 Valent (Prevnar) [...] on file documented as of this encounter Last Filed Vital Signs Vital Sign Reading Time Taken Comments Blood Pressure 128/90 03/30/2024 10:16 AM EDT Pulse 64 03/30/2024 10:16 AM EDT Temperature 37 C (98.6 F) 03/30/2024 10:16 AM EDT Respiratory Rate 16 03/30/2024 10:16 AM EDT Oxygen Saturation 98% 03/30/2024 10:16 AM EDT Inhaled Oxygen Concentration - - Weight 83.5 kg (184 lb) 03/30/2024 10:16 AM EDT Height 165.1 cm (5' 5") 03/30/2024 10:16 AM EDT Body Mass Index 30.62 03/30/2024 10:16 AM EDT documented in this encounter Progress Notes * Fercho Gray MD - 03/30/2024 10:38 AM EDT Images from the original note were not included. History of Present Illness Xin Khan is a 73 year old female that presents for Rash (Pt here for a rash over her body for the last week. [facility] to have anything checked. Pt has been taking benadryl. Pt states that last month her cholesterol med was changed and not sure if that is the cause. Pt denies pain. ) Physical Exam BP 128/90 (BP Site: Left Arm, BP Position: Sitting, BP Cuff Size: Regular) | Pulse 64 | Temp 37 C(98.6 F) (Tympanic) | Resp 16 | Ht 1.651 m (5' 5") | Wt 83.5 kg (184 lb) | SpO2 98% | BMI 30.62 kg/m | BSA 1.96 m AAOx3 Normal affect NCAT/ PERRL Neck supple Throat clear Ext warm and well perfused No gross neuro deficits Normal gait Areas of irritant dermatitis with local papules on both arms and small areas on cheeks as well I have reviewed most recent labs None Assessment and Plan Irritant dermatitis - been present for the last 2-3 weeks. Not getting worse and not getting any better. She has tried benadryl which helped but was overly sedating-was told she could use topical benadryl. Will give topical TAC cream to spot treat. Doubt this is from her medications - appears like local irritant. Wrap-Up prn Time: I spent a total of 20-29 minutes (exact time 22 mins) on the date of service in preparation, delivery, and documentation of the care provided to Amairani Khan excluding any time spent in the performance of separately billed services. documented in this encounter Plan of Treatment Upcoming Encounters Date Type Department Care Team (Late st Contact Info) Description 04/14/2024 12:00 PM EDT Office Visit Gastroenterology, [facility] [address] [place] [address] Martha Porter CRNP [address] [place] [address] 06/17/2024 9:00 AM EDT Nurse Only Ancillary [address] [place] [address] [place], Nurse [facility] [address] [place] [address] [place] [address] 07/02/2024 9:30 AM EDT Office Visit Cardiology [address] [place] [address] Sarah Antoine, ADEOLA [address] [place] [address] 08/25/2024 1:40 PM EST Office Visit Family Medicine [address] [place] [phone] Jasmina Taylor MD [address] [place] [address] [place] [address] Scheduled Procedures Name Priority Associated Diagnoses Date/Ti me COLONOSCOPY FLEXIBLE PROXIMA L DIAGNOSTIC Recall Encounter for screening colonoscopy Health Maintenance Due Date Last Done Comments Sigmoidoscopy 1996 Fecal Occult Blood Test 09/16/2020 09/16/2019, 12/05 Cologuard 01/27/2021 01/27/2018 DTaP,Tdap,and Td Vaccines (2 - Td or Tdap) 03/31/2024 07/14/2008 Postponed from 07/14/2018 (Other) Depression Screening 06/12/2024 06/12/2023 Mammogram 11/13/2024 11/13/2023, [...] as of this encounter Visit Diagnoses Diagnosis Irritant dermatitis- Primary Contact dermatitis and other eczema, due to unspecified cause documented in this encounter Advance Directives * [...] and were consensually agreed upon. Care Teams Brim Plater Relationship Specialty Start Date End Date Jasmina Taylor MD [address] [place] [address] [place] [address] PCP - General Family Medicine 01/21/19 documented as of this encounter
--- OUTSIDE RECORDS SUMMARY | 2024-05-12 03:01 | External Medical Summary ---
Author Name Unknown Address Unknown Organization K01:LAB[facility]ATORY [facility] [place] - [address] [place] [id number] Laboratory Report Ordering Provider Test Date Status CARLOS HUNTER 04/13/2024 09:31:26 Final Observation Date Value Abnormality Reference (Units ) Status ALT (Alanine aminotransferase) 04/13/2024 09:31:26 28 10-35 (U/L) Final Performing Location LABORATORY [facility] - [address] [place] [id number]
--- OUTSIDE RECORDS SUMMARY | 2024-05-12 03:01 | External Medical Summary ---
Author Name Unknown Address Unknown Organization K01:[facility] [place] - [address] [facility] [id number] Laboratory Report Ordering Provider Test Date Status CARLOS HUNTER 04/13/2024 09:31:26 Final Observation Date Value Abnormality Reference (Units ) Status Triglyceride 04/13/2024 09:31:26 170 <=174 ( mg/dL) Final Triglyceride Reference Range s (mg/dL):
<150 Acceptable
150-174 Borderline high
175-499 High
>=500 Very high Cholesterol 04/13/2024 09:31:26 207 Above high normal <200 (mg/dL) Final Total Cholesterol Reference Ranges (mg/dL):
<200 Desirable
200-239 Borderline high
>=240 High HDL 04/13/2024 09:31:26 59 >49 (mg/dL ) Final HDL Cholesterol Reference Ra nges (mg/dL):
>=60 High (Desirable)
<50 Low (Undesirable) For Females
<40 Low (Undesirable) For Males NON-HDL CHOLESTEROL 04/13/2024 09:31:26 148 <=159 (mg/dL) Final Non-HDL Cholesterol Referenc e Range (mg/dL):
<100 Target level for high risk ASCVD patient
<130 Optimal for general population
130-159 Near optimal for general population
160-189 Borderline High
190-219 High
>=220 Very High LDL, (calculated) 04/13/2024 09:31:26 114 <= 129 (mg/dL) Final LDL Cholesterol Reference Ra nges (mg/dL):
<70 Target level for high risk ASCVD patient
<100 Optimal for general population
100-129 Near optimal for general population
130-159 Borderline high
160-189 High
>=190 Very high Performing Location LAB[facility]ATORY [facility] [place] [place] - [address] [place] [facility] [address]
--- OUTSIDE RECORDS SUMMARY | 2024-05-12 03:01 | External Medical Summary | Summary of Care ---
Author Name Unknown Organization [facility] Address [address] [facility] [place] [address] Phone [phone] Care Team Providers Care Maths Tutor Name Role Phone Unavailable Primary Care Provider Unavailabl e Reason for Visit * Reason Onset Date Comments Blood Pressure Check 05/08/2024 Encounter Details Date Type Department Care Team (Late st Contact Info) Description 05/08/2024 9:00 AM EDT Nurse Only Ancillary [address] [place] [address] [place], Nurse [address] [place] [address] Blood Pressure Check Allergies Active Allergy Reactions [...] mRNA, LNP-s, No Pre serve, 2-Dose Series ([place]) 08/22/2021,12/14/2020,11/23/2020 COVID-19, LNP-s, No Preserve , Clive-sucrose, Ages 12+ (Pfizer) 02/13/2022 COVID-19, MRNA-LNP, 23-24, P F, 30 MCG/0.3 mL, 12 YRS AND ABOVE, IM ([employer]-Comirnat) 08/23/2023 Covid-19, Mrna, Lnp-s, Pf, B ivalent, 30 Mcg, IM, 12 yrs and above (Pfizer) 07/24/2022 Pneumococcal Conjugate Vacc, 13 Valent (Prevnar) [...] Sign Reading Time Taken Comments Blood Pressure 148/100 05/08/2024 9:06 AM EDT Pulse 76 05/08/2024 9:06 AM EDT Temperature - - Respiratory Rate - - Oxygen Saturation - - Inhaled Oxygen Concentration - - Weight - - Height - - Body Mass Index - - documented in this encounter Progress Notes * Shannan Ash LPN - 05/08/2024 9:14 AM EDT Amairani Khan presented for blood pressure check per provider [...] Info) Description 06/01/2024 8:30 AM EDT Imaging [facility] 2nd Floor Cardiology, [address] [place] [address] 06/01/2024 10:00 AM EDT Imaging [address] Cardiology, [place] [facility] [place] [phone] 06/01/2024 11:00 AM EDT Imaging [facility] 2nd [facility] Cardiology, [place] [address] [place] [address] 06/01/2024 1:00 PM EDT Imaging [address], [place] [address] [place] [address] 06/17/2024 9:00 AM EDT Nurse Only Ancillary [address] [place] [address] [place], Nurse Annual [address] [place] [address] 07/02/2024 9:30 AM EDT Office Visit Cardiology [address] [place] [address] Sarah Antoine PA-C [address] [place] [address] 08/25/2024 1:40 PM EST Office Visit Family Medicine [address] [place] [phone] Jasmina Taylor MD [address] [place] [address] [place] [address] 10/05/2024 2:00 PM EST Office Visit Gastroenterology, [facility] [address] [place] [address] Martha Porter CRNP [address] [place] [address] Scheduled Orders Name Type Priority Associated Diagnoses Orde r Schedule BLOOD PRESSURE Procedures Routine HTN, goal below 140/90 Ordered: 05/08/2024 Scheduled Procedures Name Priority Associated Diagnoses Date/Ti [...] Additional history exists Albumin/Creatinine Ratio 12/11/2024 12/11/2021, 12/0 12/2018 GFR 02/20/2025 02/21/2024, 08/21, 08/13/2023, Additional [...] encounter Visit Diagnoses Diagnosis HTN, goal below 140/90- Primary Unspecified essential hypertension documented in this encounter [...]
--- OUTSIDE RECORDS SUMMARY | 2024-05-12 03:01 | External Medical Summary | Summary of Care ---
Author Name Unknown Organization [facility] Address [address] [place] [facility] [address] Phone [phone] Care Team Providers Care Mens Locker Room Attendant Name Role Phone Jasmina Taylor MD Primary Care Provide r Reason for Referral * Precert (Within 10 days (routine)) - Pending Review Specialty Diagnoses / Procedures Referred By Sabiha t Referred To Contact Radiology Diagnoses Nausea Pain of upper abdomen Procedures NM GASTRIC EMPTYING STUDY SOLID Martha Porter CRNP [address] [employer] [place] [address] Referral ID Status Reason Start Date Expiration Date V isits Requested Visits Authorized [id number] Pending Review 04/03/2024 999 999 Reason for Visit * Reason Comments Follow Up Pt here to f/u for I BS. Miralax BID helping with sx. Pt states she was in [facility] about 3 weeks ago for abd pain/nausea. Encounter Details Date Type Department Care Team (Late st Contact Info) Description 04/03/2024 12:30 PM EDT Office Visit Gastroenterology, [facility] [address] [place] [address] Martha Porter CRNP [address] [employer] [place] [address] Nausea*; Pain of upper abdomen Allergies Active Allergy Reactions Criticality Noted Date Comments Baclofen 04/26/2022 Vertigo/extreme dizziness Codeine 02/18/2013 "deathly sick" Levofloxacin Nausea/vomiting 08/12/2018 Sulfa Antibiotics 08/25/2001 Rash documented as of this encounter (statuses as of 04/03/2024) Medications Medication Sig Dispensed Refills Start Date [...] as of this encounter (statuses as of 04/03/2024) Active Problems Problem Noted Date Diagnosed Date [...] as of this encounter (statuses as of 04/03/2024) Resolved Problems Problem Noted Date Diagnosed Date Resolved Date Multinodular goiter 08/13/2023 08/14/20 23 Nephrolithiasis 03/14/2021 08/13/2023 Chronic kidney disease, stage [...] as of this encounter (statuses as of 04/03/2024) Immunizations Name Administration Dates Next Due COVID-19 mRNA, LNP-s, No Pre serve, 2-Dose Series ([employer]) 08/22/2021,12/14/2020,11/23/2020 COVID-19, LNP-s, No Preserve , Clive-sucrose, Ages 12+ (Pfizer) 02/13/2022 COVID-19, MRNA-LNP, 23-24, P F, 30 MCG/0.3 mL, 12 YRS AND ABOVE, IM ([facility]) 08/23/2023 Covid-19, Mrna, Lnp-s, Pf, B ivalent, 30 Mcg, IM, 12 yrs and above ([employer]o) 07/24/2022 Pneumococcal Conjugate Vacc, 13 Valent (Prevnar) [...] Sign Reading Time Taken Comments Blood Pressure 149/75 04/03/2024 12:17 PM EDT Pulse 72 04/03/2024 12:17 PM EDT Temperature 36.8 C (98.2 F) 04/03/2024 12:17 PM E DT Respiratory Rate - - Oxygen Saturation - - Inhaled Oxygen Concentration - - Weight 84.6 kg (186 lb 6.4 oz) 04/03/2024 12:17 PM EDT Height - - Body Mass Index 31.02 03/30/2024 10:16 AM EDT documented in this encounter Progress Notes * Martha Porter CRNP - 04/03/2024 11:18 AM EDT CC: IBS HPI: Recall that Ms. Amairani Khan (Judy) is a 73 yr old female patient of Dr. Taylor with a history of HTN, COPD, diverticulitis who has been followed in GI clinic for GERD IBS -C. She was seen at [facility] ED in February for abd pain and nausea. CT, labs were normal. Current GI Symptoms: Gets episodes of RUQ pain radiating to the left upper side and nausea. Doesn't believe its related to constipation. Feel like pinching. Doesn't seem to happen after a high fat meal or even after eating in general. Any time of day. Lasts for hours. Gets this pain about 3-4 days every week. Passing aBM about 3x/day. Current GI Meds: Mirtazipine (for poor sleep since last appt Oct 2023) takes 1/2 of a 15mg tab (a full tab caused really weird dreams). Dicyclomine helps the pain - sometimes takes Pantoprazole 40mg every morning. Miralax - takes 1 or 2 doses/day Diagnostic Testing: CTAP w IV February 2024: 1. No acute infectious or inflammatory findings are identified in the abdomen or pelvis. 2. Right-sided nephrolithiasis. 3. Cardiomegaly and trace pleural effusions. 4. Colonic diverticulosis without CT evidence of acute diverticulitis. Labs at [facility] February 2024: normal CBC, CMP, LFTs, UA EGD for dysphagia Jul 2023: - Small hiatal hernia. Otherwise normal, empirically dilated. Colonoscopy February 2023: Hemorrhoids, sigmoid diverticulosis, otherwise normal. RUQ US Oct 2022: 1. No acute sonographic abnormality in the right upper quadrant. 2. Nonobstructiveright renal stone. 3. Probable mild hepatic steatosis. KUB Jul 2022: Moderate amount of stool in the ascending colon. Colonoscopy 2018: Normal ileum, 1 5 mm cecal polyp, diverticulosis, nonbleeding internal hemorrhoids. Surv rec in 2027. Labs: tTG (-) 2018 Video Swallow 2019: no aspiration, mild esophageal dysmotility. CTAP Jun 2022 at [facility] w IV contrast: No acute infectious or inflammatory findings are identified in the abdomen or pelvis. Colonic diverticulosis without CT evidence of acute diverticulitis. Right-sided nephrolithiasis. CTAP w IV and oral contrast 2020: No acute CT finding to explain patient's symptoms. Additional findings described above. EXAM: BP 149/75 | Pulse 72 | Temp 36.8 C (98.2 F) | Wt 84.6 kg (186 lb 6.4 oz) | BMI 31.02 kg/m | BSA 1.97 m GENERAL: 73 year old female well developed and well nourished in no acute distress SKIN: no rashes, ulcers, or spider angiomata HEENT: normocephalic, sclera clear, pharynx normal NECK: supple, no lymphadenopathy, no masses or thyroid enlargement LUNGS: clear to auscultation anterior and posterior HEART: regular rate & rhythm, no murmurs and no gallops ABDOMEN: normo-active bowel sounds, soft, mild diffuse abd tenderness, non- distended no masses, no hepatosplenomegaly, no rebound or guarding, no bruits EXTREMITIES: no palmar erythema, no edema, no skin discoloration, no clubbing, no cyanosis NEURO: no lateralizing findings, Sensory/Motor grossly normal IMPRESSION/RECOMMENDATIONS: 73 year old female with Nausea (Primary)/Pain of upper abdomen - US ABDOMEN LIMITED; Future; Expected date: 04/10/2024 - NM GASTRIC EMPTYING STUDY SOLID; Future; Expected date: 04/03/2024 Continue current medications Recheck in Gi in 6m and prn. I spent a total of 15 minutes on the date of service in review of patient's record, and previously obtained information in person and appropriate medical visit, discussion and education of plan, withpatient and/or caregiver, placing orders for tests/referral/procedures as medically necessary and documentation of pertinent clinical information in patient's medical records for their visit today. Thank you for the opportunity to be involved in the care of this patient. MELLISSA Robert documented in this encounter Nursing Notes * Ayla Frederick CMA - 04/03/2024 12:17 PM EDT Chief Complaint Patient presents with Follow Up Pt here to f/u for IBS. Miralax BID helping with sx. Pt states she was in [facility] about 3 weeks ago for abd pain/nausea. documented in this encounter Plan of Treatment Upcoming Encounters Date Type Department Care Team (Late st Contact Info) Description 04/13/2024 9:00 AM EDT Imaging Radiology [address] [place] [address] 06/01/2024 8:30 AM EDT Imaging [facility] 2nd Floor Cardiology, [place] [address] [facility] [place] [address] 06/01/2024 10:00 AM EDT Imaging [facility] 2nd Floor Cardiology, [address] [place] [address] 06/01/2024 11:00 AM EDT Imaging [facility] 2nd Floor Cardiology, [place] 132 [facility] [place] [address] 06/01/2024 1:00 PM EDT Imaging [facility] 2nd Floor Cardiology, [place] Maryellen [facility] [place] [address] 06/17/2024 9:00 AM EDT Nurse Only Ancillary [address] [place] [address] [place], Nurse [address] [place] [address] 07/02/2024 9:30 AM EDT Office Visit Cardiology [address] [place] [address] Sarah Antoine PA-C 132 [facility] [place] [address] 08/25/2024 1:40 PM EST Office Visit Family Medicine [address] [place] [phone] Jasmina Taylor MD [address] [place] [address] [place] [address] 10/05/2024 2:00 PM EST Office Visit Gastroenterology, [facility] [address] [place] [address] Martha Porter CRNP [address] [place] [address] Scheduled Orders Name Type Priority Associated Diagnoses Orde r Schedule US ABDOMEN LIMITED Medical Imaging Routine Nausea Pain of upper abdomen Expected: 04/10/2024, Expires: 05/03/2025 NM GASTRIC EMPTYING STUDY SOLID Medical Imaging Routine Nausea Pain of upper abdomen Expected: 04/03/2024, Expires: 05/03/2025 Scheduled Procedures Name Priority Associated Diagnoses Date/Ti [...] as of this encounter Visit Diagnoses Diagnosis Nausea- Primary Nausea alone Pain of upper abdomen Abdominal pain, other specified site documented in this encounter Advance Directives * [...] and were consensually agreed upon. Care Teams Mens Locker Room Attendant Relationship Specialty Start Date End Date Jasmina Taylor MD [address] [place] [address] [place] [address] PCP - General Family Medicine 01/21/19 documented as of this encounter
--- OUTSIDE RECORDS SUMMARY | 2024-05-12 03:02 | External Medical Summary | Summary of Care ---
Author Name Unknown Organization [facility] Address [address] [place] [address] Phone [phone] Care Team Providers Care Boring Mill Set Up Operator Name Role Phone Jasmina Taylor MD Primary Care Provide r Reason for Visit * Reason Comments Emergency Department Follow-Up Upper rig ht quadrant pain, legs feel weak, skin changes Encounter Details Date Type Department Care Team (Latest Contact Info) Description 03/13/2024 2:20 PM EDT Office Visit Family Medicine [address] [phone] Jasmina Taylor MD [address] [place], [place] [address] [address] Generalized abdominal pain*; Gastroesophageal reflux disease without esophagitis; Hiatal hernia; Restless legs syndrome; Primary osteoarthritis of right knee; HTN, goal below 140/90; Multinodular thyroid Allergies Active Allergy Reactions Criticality Noted Date Comments Baclofen 04/26/2022 Vertigo/extreme dizziness Codeine 02/18/2013 "deathly sick" Levofloxacin Nausea/vomiting 08/12/2018 Sulfa Antibiotics 08/25/2001 Rash documented as of this encounter (statuses as of 03/13/2024) Medications Medication Sig Dispensed Refills Start Date [...] mouth at bedtime. 90 Tablet 03/13/2024 Active documented as of this encounter (statuses as of 03/13/2024) Active Problems Problem Noted Date Diagnosed Date [...] as of this encounter (statuses as of 03/13/2024) Resolved Problems Problem Noted Date Diagnosed Date [...] goal below 140/90 09/07/200911/24 Overview: Modified per [facility] protocol #16. Dyslipidemia, goal to be determined 02/17/2009 11/09/2013 Thyroid nodule 11/24/2021 documented as of this encounter (statuses as of 03/13/2024) Immunizations Name Administration Dates Next Due COVID-19 mRNA, LNP-s, No Pre serve, 2-Dose Series ([employer]) 08/22/2021,12/14/2020,11/23/2020 COVID-19, LNP-s, No Preserve , Clive-sucrose, Ages 12+ (Pfizer) 02/13/2022 COVID-19, MRNA-LNP, 23-24, P F, 30 MCG/0.3 mL, 12 YRS AND ABOVE, IM ([facility] 08/23/2023 Covid-19, Mrna, Lnp-s, Pf, B ivalent, 30 Mcg, IM, 12 yrs and above ([employer]) 07/24/2022 Pneumococcal Conjugate Vacc, 13 Valent (Prevnar) [...] Influenza, Trivalen t, Adjuvanted, 65+ yrs 07/28/2019 TDAP (age 11 and older)(Adacel) 07/14/2008 Varicella Zoster Vaccine (Adult) 02/19/2013 Zoster [...] Sign Reading Time Taken Comments Blood Pressure 120/70 03/13/2024 2:11 PM EDT Pulse 76 03/13/2024 2:11 PM EDT Temperature 36.3 C (97.4 F) 03/13/2024 2:11 PM ED T Respiratory Rate 16 03/13/2024 2:11 PM EDT Oxygen Saturation - - Inhaled Oxygen Concentration - - Weight 84.6 kg (186 lb 6.4 oz) 03/13/2024 2:11 P M EDT Height 165.1 cm (5' 5") 03/13/2024 2:11 PM EDT Body Mass Index 31.02 03/13/2024 2:11 PM EDT documented in this encounter Progress Notes * Jasmina Taylor MD - 03/13/2024 2:20 PM EDT Subjective: Amairani Trujillo is a 73 year old female. Chief Complaint Patient presents with Emergency Department Follow-Up Upper right quadrant pain, legs feel weak, skin changes HPI: Brief Clinical History Ms. Trujillo is a 73 year old woman last seen in Family Medicine 3 weeks ago (02-21-24). She is notdue for eval of any conditions. Was in the [facility] ED 03/04/24 with abdominal pain. The pain started in the right side of the abdomen and across to the left. Was also nauseated that morning but did not vomit. Had labs done that were all normal. UA was negative. CT scan was also negative for anything acute. Showed non-obstructing right renal stone. No flank pain or hematuria. Blood pressure was high while she was at the ER. Has had abdominal pain for a long time. She states she almost always has pain but it waxes and wanes. Had the pain in the right side of the abdomen this morning. Can be sharp. Is gone now. Follows with GI chronically and next appointment is 04/14/24. Takes dicyclomine as needed and feels it does help. Also takes Miralax about twice a day for chronic constipation. Her bowels seem to be moving pretty regularly with that. She was also put on Remeron at night for abdominal pain per GI. Last EGD was 08/19/23 and showed small hiatal hernia and otherwise negative. Denies any heartburn. On PPI. Last colonoscopy was 03/15/23 and showed internal hemorrhoids and diverticulosis but otherwise normal. Legs feel weak and like they will give out on her but they have not. Has not fallen down. Will feelshe is getting a Kobi horse and feels like her legs will give out. She will sit down and wiggle her feet and toes because they feel like they need to move. Legs jump at night. Lays in bed and putsa blanket over them to calm them down. They have been jumping for about one month. Feet do not get cold. Has knee arthritis, worse in the right knee. Follows with orthopedics and just had her 4th injection but the injections are not working quite as well anymore. Is reluctantly considering knee replacement. Has back arthritis as well. Results for orders placed or performed in visit on 02/21/24 LIPID PANEL WITH DIRECT LDL IF TG IS HIGH Result Value Ref Range Triglycerides 158 <=174 mg/dL Cholesterol 267 (H) <200 mg/dL HDL Cholesterol 56 >49 mg/dL Non-HDL Cholesterol 211 (H) <=159 mg/dL LDL Cholesterol 179 (H) <=129 mg/dL COMPREHENSIVE METABOLIC PANEL Result Value Ref Range BUN 14 6 - 20 mg/dL Creatinine 1.0 0.5 - 1.0 mg/dL Estimated Glomerular Filtration Rate 60 >=60 mL/min Sodium 141 135 - 146 mmol/L Potassium 4.2 3.5 - 5.1 mmol/L Chloride 105 98 - 107 mmol/L CO2 26 22 - 32 mmol/L Anion Gap 10 7 - 15 mmol/L Glucose 101 70 - 120 mg/dL Albumin 4.1 3.8 - 5.0 g/dL AST 23 10 - 35 U/L Alkaline Phosphatase 67 35 - 130 U/L Bilirubin, Total 0.5 <=1.2 mg/dL Calcium 9.2 8.4 - 10.2 mg/dL Protein 6.8 6.0 - 8.3 g/dL ALT 24 10 - 35 U/L PHM: Patient Active Problem List Diagnosis ADVANCE DIRECTIVE INFORMATION Gastroesophageal reflux disease without esophagitis HTN, goal below 140/90 Frequent PVCs Mild intermittent asthma without complication Generalized osteoarthritis of multiple sites Dyslipidemia, goal LDL below 100 Hx of actinic keratosis Family history of premature CAD Multinodular thyroid History of Clostridioides difficile infection Primary insomnia Seasonal allergic rhinitis due to pollen Primary osteoarthritis of right knee Hiatal hernia Current Outpatient Medications Medication Sig Dispense Refill fluticasone (FLONASE) 50 MCG/ACT nasal spray Administer 2 Sprays into each nostril in the morning. 1 Inhaler 5 Coenzyme Q10 10 MG Capsule Take 2 Capsules by mouth in the morning. Multiple Vitamins-Minerals (MULTIVITAMIN ADULTS) TABS Take 1 Tab by mouth daily. aspirin enteric coated 81 MG TBEC Take 1 Tablet by mouth in the morning. Culturelle Pro-Well Oral Capsule Take 2 Caps by mouth daily. Benefiber Oral Powder Take by mouth every evening. Takes 2 tsp daily with supper Polyethylene Glycol 3350 17 GM Oral Packet Take 1 Packet by mouth in the morning. Hydrocortisone 2.5 % External Cream Apply topically to affected area 2 times a day. 28 g 0 Atenolol 50 MG Oral Tablet (Tenormin) Take 1 Tablet by mouth in the morning. 90 Tablet 1 Lisinopril 10 MG Oral Tablet (Prinivil) Take 1 Tablet by mouth in the morning. 90 Tablet 3 Pantoprazole Sodium 40 MG Oral Tablet Delayed Release (Protonix) Take 1 Tablet by mouth in the morning. 30 minutes before the first meal of the day. Do not crush, split or chew the tablet. 90 Tablet 3 Dicyclomine HCl 10 MG Oral Capsule (Bentyl) Take 1 Capsule by mouth 2 times a day as needed for Cramping. 180 Capsule 2 Pravastatin Sodium 40 MG Oral Tablet (Pravachol) Take 1 Tablet by mouth daily with dinner 100 Tablet 1 Mirtazapine 15 MG Oral Tablet (Remeron) Take 1 Tablet by mouth at bedtime. 90 Tablet 0 No current facility-administered medications for this visit. Past Medical History: Diagnosis Date COPD, moderate (HCC) 01/26/2013 Diverticulitis GERD (gastroesophageal reflux disease) 01/26/2013 HTN, goal below 140/90 09/07/2009 Modified per HTN protocol #16. Hyperlipidemia LDL goal < 130 02/17/2009 Hypertension Kidney disease Nephrolithiasis OTHER DISEASE OF TRACHEA AND BRONCHUS 04/13/2010 Rhinitis, non-allergic 01/26/2013 Rhinitis, non-allergic 01/26/2013 acute Thyroid nodule Past Surgical History: Procedure Laterality Date COLONOSCOPY 05/26 Dr Akcerman COLONOSCOPY, DIAGNOSTIC (RECTUM) 08/20/2018 normal bx, diverticulosis, repeat 10 yrs/COLONOSCOPY FLEXIBLE PROXIMAL DIAGNOSTIC performed by Nneka Mayer MD at [facility] COLONOSCOPY, DIAGNOSTIC (RECTUM) 03/15/2023 COLONOSCOPY FLEXIBLE PROXIMAL DIAGNOSTIC performed by Karlos Olivarez MD at ENDOSCOPY [facility] EGD, FLEXIBLE, DIAGNOSTIC 08/20/2018 mild inflammation/ESOPHAGOGASTRODUODENOSCOPY (EGD), FLEXIBLE, TRANSORAL, DIAGNOSTIC performed by Nneka Mayer MD at ENDOSCOPY [facility] EGD, FLEXIBLE, DIAGNOSTIC 08/19/2023 ESOPHAGOGASTRODUODENOSCOPY (EGD), FLEXIBLE, TRANSORAL, DIAGNOSTIC performed by Ector Mireles MDat ENDOSCOPY [facility] FRAGMENT KIDNEY STONE BY SHOCK WAVE Right 10/02/2021 RIGHT LITHOTRIPSY EXTRACORPOREAL SHOCK WAVE performed by Ankush Loya MD at OR [facility] MAMMOGRAM SCREENING BILATERAL 01/12/10 scattered fibroglandular densities, category 1 normal MISCELLANEOUS ORDER 1994 bladder tacking MOBILE DXA 01/21/2019 Lumbar T -2-2, Femur T -1, fx risk 8.3%/0.7%, low risk, repeat 3 years PARTIAL HYSTERECTOMY 1994 Hysterectomy Partial RMV MALG LSN FACE/EARS .6-1CM 01/01/12 Dr Swain Social History Socioeconomic History Marital status: Spouse name: Not on file Number of children: 1 Years of education: Not on file Highest education level: Not on file Occupational History Occupation: [employer]ia [employer] Tobacco Use Smoking status: Never Smokeless tobacco: Never Vaping Use Vaping status: Never Used Substance and Sexual Activity Alcohol use: No Drug use: No Sexual activity: Not Currently Partners: Male control/protection: Surgical Other Topics Concern Not on file Social History Narrative for 52yrs as of 06/12/2023 Social Determinants of Health Financial Resource Strain: Not on file Food Insecurity: No Food Insecurity (06/12/2023) Hunger Vital Sign Worried About Running Out of Food in the Last Year: Never true Ran Out of Food in the Last Year: Never true Transportation Needs: Not on file Physical Activity: Not on file Stress: Not on file Social Connections: Not on file Intimate Partner Violence: Not on file Housing Stability: Not on file Review of patient's allergies indicates: Allergen Reactions Baclofen Vertigo/extreme dizziness Codeine "deathly sick" Levaquin [Levofloxacin] Nausea/vomiting Sulfa Antibiotics Rash Objective: BP 120/70 | Pulse 76 | Temp 36.3 C (97.4 F) | Resp 16 | Ht 1.651 m (5' 5") | Wt 84.6 kg (186 lb6.4 oz) | BMI 31.02 kg/m | BSA 1.97 m Physical Exam: General: alert, healthy, no distress, well nourished, and well developed Head: Normocephalic, No masses, lesions, tenderness or abnormalities Eye Exam: PERRLA, extraocular movements intact, conjunctiva are pink and non- injected, sclera clear Oropharynx: no exudate, no erythema, lips, buccal mucosa, and tongue normal, and mucous membranes are moist Neck: supple, no adenopathy, Heart: regular rate & rhythm, no murmur, and no gallops Lungs: chest symmetric with normal AP diameter, no chest deformities noted, no chest wall tenderness, lungs clear to auscultation Abdomen: abdomen soft, normal bowel sounds, no masses or organomegaly, no rebound or guarding, and very mild tenderness across lower abdomen Back: back symmetric, no curvature, no costovertebral angle tenderness, range of motion is normal, no tenderness to percussion or palpation Extremities: no edema, no clubbing, no cyanosis. 2+ posterior tibialis pulses bilaterally Neuro Exam: alert & oriented x 3 with fluent speech, no focal motor/sensory deficits, gait normal Extensive ROS Constitutional (f/c/wt/vision/hearing): Negative Resp (cough/sob/enrique): Negative CV (cp/palp/fluttering/diaphoresis/enrique/pnd):see above hpi GI (n/v/d/hrtburn): see above hpi Endo (hair/cold or heat intol/ 3 p's): Negative Neuro (shaking/weak/fatigu/parasthesi/): see above hpi Skin (rash/easy bruis/xerosis): Negative Psy (si/hi/halluc/): Negative (nocturia/hesit/drib/sexual review): Negative Lymph (swollen glands/b sx's/: Negative ASSESSMENT: Generalized abdominal pain (Primary)--see below Gastroesophageal reflux disease without esophagitis--continue pantoprazole 40 mg daily. Hiatal hernia--continue PPI. Denies heartburn Restless legs syndrome--declines Requip. Is taking Remeron at night now. CBC was normal in ED but will r/o iron deficiency. - IRON SCREEN, INCLUDING TIBC; Future; Expected date: 03/13/2024 - FERRITIN; Future; Expected date: 03/13/2024 Primary osteoarthritis of right knee--follow-up with orthopedics as scheduled. Could be contributing to her legs feeling weak. HTN, goal below 140/90--controlled. Was high in ED but normal today. Continue lisinopril 40 mg daily and atenolol 50 mg daily Multinodular thyroid--had ultrasound 06/2023 showing stable nodules. TSH normal. Follow Up: Return as scheduled. PLAN: Continue present medication(s): Schedule labs: Iron screen and ferritin for what sounds like recent onset of restless legs syndrome. Had normal CBC at [facility]/ Patient education: follow-up with GI as scheduled. Continue Miralax, PPI, mirtazapine, and dicyclomine. Suspect IBS w/constipation as must likely cause of her chronic abdominal pain. Has had both EGDand colonoscopy in the last year and they were unremarkable. CT scan of the abdomen and pelvis was essentially normal. No etiology for abdominal pain identified. Could have scar tissue as well. Follow-up with GI as scheduled 04/14/24. Follow up: As scheduled. Jasmina Taylor MD documented in this encounter Nursing Notes * Shannan Ash LPN - 03/13/2024 2:11 PM EDT The patient has been properly identified by confirmation of name and date of . Chief Complaint Patient presents with Emergency Department Follow-Up Upper right quadrant pain, legs feel weak, skin changes documented in this encounter Plan of Treatment Upcoming Encounters Date Type Department Care Team (Late st Contact Info) Description 04/14/2024 12:00 PM EDT Office Visit Gastroenterology, [facility] [address] [place] [address] Martha Porter CRNP [address] [place] [address] 06/17/2024 9:00 AM EDT Nurse Only Ancillary [address] [place] [address] [place], Nurse [address] [place] [address] 07/02/2024 9:30 AM EDT Office Visit Cardiology [address] [place] [address] Sarah Antoine PA-C [address] [place] [address] 08/25/2024 1:40 PM EST Office Visit Family Medicine [address] [place] [phone] Jasmina Taylor MD [address] [place] [address] [place] [address] Pending Results Name Type Priority Associated Diagnoses Date /Time IRON SCREEN, INCLUDING TIBC Lab Routine Restless legs syndrome 03/13/2024 2:54 PM EDT FERRITIN Lab Routine Restless legs syndrome 03/13/2024 2:54 PM EDT Scheduled Orders Name Type Priority Associated Diagnoses Orde r Schedule IRON SCREEN, INCLUDING TIBC Lab Routine Restless legs syndrome Expected: 03/13/2024 (Approximate), Expires: 03/13/2025 FERRITIN Lab Routine Restless legs syndrome Expected: 03/13/2024 (Approximate), Expires: 03/13/2025 Scheduled Procedures Name Priority Associated Diagnoses Date/Ti me COLONOSCOPY FLEXIBLE PROXIMA L DIAGNOSTIC Recall Encounter for screening colonoscopy Health Maintenance Due Date Last Done Comments Sigmoidoscopy 1996 DTaP,Tdap,and Td Vaccines (2 - Td or Tdap) 07/14/2018 07/14/2008 Fecal Occult Blood Test 09/16/2020 09/16/2019, 12/05 Cologuard 01/27/2021 01/27/2018 COVID-19 Vaccine ( season) 2023 08/23/2023, 07/24/2022, 02/13/2022, Additional history exists Depression Screening 06/12/2024 06/12/2023 Mammogram 11/13/2024 11/13/2023, [...] 02/19, 02/19/2013 Influenza Vaccine (FLU shot) Completed , 07/07/2022, 06/29/2021, Additional history exists GARDASIL-HPV IMMUNIZATION SERIES Aged [...] as of this encounter Visit Diagnoses Diagnosis Generalized abdominal pain- Primary Abdominal pain, generalized Gastroesophageal reflux disease without esophagitis Esophageal reflux Hiatal hernia Diaphragmatic hernia without mention of obstruction or gangrene Restless legs syndrome Restless legs syndrome (RLS) Primary osteoarthritis of right knee Primary localized osteoarthrosis, lower leg HTN, goal below 140/90 Unspecified essential hypertension Multinodular thyroid Nontoxic multinodular goiter documented in this encounter Advance Directives * [...] and were consensually agreed upon. Care Teams Boring Mill Set Up Operator Relationship Specialty Start Date End Date Jasmina Taylor MD [address] [place] [address] [place] [phone] PCP - General Family Medicine 01/21/19 documented as of this encounter
--- OUTSIDE RECORDS SUMMARY | 2024-05-12 03:02 | External Medical Summary | Summary of Care ---
Author Name Unknown Organization [facility] Address [address] [place] [address] Phone [phone] Care Team Providers Care Diesel Locomotive Crane Operator Name Role Phone Jasmina Taylor MD Primary Care Provide r Reason for Visit * Reason Comments Outpatient Testing Encounter Details Date Type Department Care Team (Late st Contact Info) Description 03/13/2024 3:00 PM EDT Laboratory Laboratory [address] [place] [phone] [place] [address] Restless legs syndrome Allergies Active Allergy Reactions Criticality Noted Date [...] mRNA, LNP-s, No Pre serve, 2-Dose Series ([employer]) 08/22/2021,12/14/2020,11/23/2020 COVID-19, LNP-s, No Preserve , Clive-sucrose, Ages 12+ (Pfizer) 02/13/2022 COVID-19, MRNA-LNP, 23-24, P F, 30 MCG/0.3 mL, 12 YRS AND ABOVE, IM ([facility]) 08/23/2023 Covid-19, Mrna, Lnp-s, Pf, B ivalent, 30 Mcg, IM, 12 yrs and above ([employer]) 07/24/2022 Pneumococcal Conjugate Vacc, 13 Valent (Prevnar) [...] 04/14/2024 12:00 PM EDT Office Visit Gastroenterology, [facility] [address] [place] [address] Martha Porter CRNP [address] [place] [id number] 06/17/2024 9:00 AM EDT Nurse Only Ancillary [address] [place] [address] [place], Nurse Annual [address] [place] [address] 07/02/2024 9:30 AM EDT Office Visit Cardiology [address] [place] [address] Sarah Antoine PA-C [address] [place] [address] 08/25/2024 1:40 PM EST Office Visit Family Medicine [address] [place] [phone] Jasmina Taylor MD [address] [place] [address] [place] [address] Pending Results Name Type Priority Associated Diagnoses Date /Time IRON SCREEN, INCLUDING TIBC Lab Routine Restless legs syndrome 03/13/2024 2:54 PM EDT FERRITIN Lab Routine Restless legs syndrome 03/13/2024 2:54 PM EDT Scheduled Procedures Name Priority Associated Diagnoses [...] as of this encounter Visit Diagnoses Diagnosis Restless legs syndrome Restless legs syndrome (RLS) documented in this encounter Advance Directives * [...] and were consensually agreed upon. Care Teams Diesel Locomotive Crane Operator Relationship Specialty Start Date End Date Jasmina Taylor MD [address] [place] [address] [place] [address] PCP - General Family Medicine 01/21/19 documented as of this encounter
--- OUTSIDE RECORDS SUMMARY | 2024-05-12 03:02 | External Medical Summary ---
Author Name Unknown Address Unknown Organization [id number]:LABORATORY [facility] - [address] [place] [address] Laboratory Report Ordering Provider Test Date Status CARLOS HUNTER 03/13/2024 14:54:41 Final Observation Date Value Abnormality Reference (Units ) Status Iron 03/13/2024 14:54:41 85 33-151 (ug /dL) Final Iron-binding capacity 03/13/2024 14:54:41 310 250-425 (ug/dL) Final Transferrin Sat % 03/13/2024 14:54:41 27 15 -55 (%) Final Performing Location LABORATORY C - [address] [place] [address]
--- OUTSIDE RECORDS SUMMARY | 2024-05-12 03:02 | External Medical Summary | Summary of Care ---
Author Name Unknown Organization [facility] Address [address] [place] [address] Phone [phone] Care Team Providers Care Missile And Missile Checkout Technician Name Role Phone Jasmina Taylor MD Primary Care Provide r Reason for Visit * Reason Comments Medication Refill Encounter Details Date Type Department Care Team (Late st Contact Info) Description 03/11/2024 Refill Gastroenterology, [facility] [address] [place] [id number] Alecia Rob CRNP [address] [place] [phone] Allergies Active Allergy Reactions Criticality Noted Date [...] 10/28/2023 Active Lisinopril 10 MG Oral Tablet (Prinivil)Indicat [...] mouth at bedtime. 90 Tablet 03/13/2024 Active Mirtazapine 15 MG Oral Tablet (Remeron) Take 1 Tablet by mouth at bedtime. 90 Tablet 12/20/2023 4 Discontinue d(Refill) documented as of this encounter (statuses as of 03/13/2024) Active Problems Problem Noted Date Diagnosed Date Seasonal allergic rhinitis due to pollen 023 [...] mRNA, LNP-s, No Pre serve, 2-Dose Series ([employer]) 08/22/2021,12/14/2020,11/23/2020 COVID-19, LNP-s, No Preserve , Clive-sucrose, Ages 12+ (Pfizer) 02/13/2022 COVID-19, MRNA-LNP, 23-24, P F, 30 MCG/0.3 mL, 12 YRS AND ABOVE, IM ([facility]) 08/23/2023 Covid-19, Mrna, Lnp-s, Pf, B ivalent, 30 Mcg, IM, 12 yrs and above ([employer]) 07/24/2022 Pneumococcal Conjugate Vacc, 13 Valent (Prevnar) [...] 9:04 AM EDT Sexual Orientation Straight 05/10/2021 9 :04 AM EDT Job Start Date Occupation Industry Not on file Not on file Not on file documented as of this encounter Miscellaneous Notes * Telephone Encounter - Alecia Rob CRNP - 03/13/2024 12:06 PM EDT Signed Prescriptions: Disp Refills Mirtazapine 15 MG Oral Tablet (Remeron) 90 Tab*0 Sig: Take 1 Tablet by mouth at bedtime. Authorizing Provider: ALECIA ROB * Telephone Encounter - Alecia Rob CRNP - 03/13/2024 12:06 PM EDT Signed Prescriptions: Disp Refills Mirtazapine 15 MG Oral Tablet (Remeron) 90 Tab*0 Sig: Take 1 Tablet by mouth at bedtime. Authorizing Provider: ALECIA ROB * Telephone Encounter - Ayla Frederick CMA - 03/13/2024 9:12 AM EDTPending Prescriptions: Disp Refills Mirtazapine 15 MG Oral Tablet (Remeron) 90 Tab*0 Sig: Take 1 Tablet by mouth at bedtime. * Telephone Encounter - Lisa King CPhT - 03/12/2024 12:42 PM EDT Did you pend patient's preferred pharmacy and medication before forwarding?yes Pharmacy: [facility] Pending Prescriptions: Disp Refills Mirtazapine 15 MG Oral Tablet (Remeron) 90 Tab*0 Sig: Take 1 Tablet by mouth at bedtime. Last Visit: 11/13/2023 (in office), 10/06/2020 (telemedicine) Next Visit: 04/14/2024 If no future appointments scheduled, and last appointment is greater than a year ago, please schedule patient for a follow-up appointment Last date the medication was ordered: 12/20/23 Is this request for a controlled substance?No Urine Drug Screen:No results found for this or any previous visit. Patient Phone Numbers Labs: Lab Results Component Value Date/Time CREAT 1.0 02/21/2024 08:44 AM CREAT 0.92 09/06/2023 12:00 AM CREAT 1.0 11/01/2020 12:09 PM POTASSIUM 4.2 02/21/2024 08:44 AM POTASSIUM 4.3 09/06/2023 12:00 AM POTASSIUM 4.7 11/01/2020 12:09 PM TSH 1.71 07/01/2023 01:58 PM TSH 2.83 08/07/2019 09:34 AM LDLCALC 179 (H) 02/21/2024 08:44 AM LDLCALC 103 05/10/2020 08:30 AM LDLDIRECT NOT APPLICABLE 05/10/2020 08:30 AM ALT 24 02/21/2024 08:44 AM ALT 21 11/01/2020 12:09 PM documented in this encounter Plan of Treatment Upcoming Encounters Date Type Department Care Team (Late st Contact Info) Description 03/13/2024 2:20 PM EDT Office Visit Family Medicine [address] [place] [phone] Jasmina Taylor MD [address] [place] [address] [place] [phone] 04/14/2024 12:00 PM EDT Office Visit Gastroenterology, [facility] [address] [place] [address] Martha Porter CRNP [address] [place] [phone] 06/17/2024 9:00 AM EDT Nurse Only Ancillary [address] [place] [phone] [place], Nurse Annual [address] [place] [phone] 07/02/2024 9:30 AM EDT Office Visit Cardiology [address] [place] [phone] Sarah Antoine PA-C [address] [place] [phone] 08/25/2024 1:40 PM EST Office Visit Family Medicine [address] [place] [phone] Jasmina Taylor MD [address] [place] [address] [place] [phone] Scheduled Procedures Name Priority Associated Diagnoses Date/Ti [...] Not on filedocumented as of this encounter Advance Directives * Full Code (Latest Code Status on File) Date Activated Date Inactivated Comments 10/02/2021 11:06 AM 10/02/2021 4:56 PM This orde r reflects the patients wishes and were consensually agreed upon. * Full Code Date Activated Date Inactivated Comments 10/02/2021 10:03 AM 10/02/2021 11:06 AM This ord er reflects the patients wishes and were consensually agreed upon. Care Teams Missile And Missile Checkout Technician Relationship Specialty Start Date End Date Jasmina Taylor MD [address] [place] [address] [place] [phone] PCP - General Family Medicine 01/21/19 documented as of this encounter
--- OUTSIDE RECORDS SUMMARY | 2024-05-12 03:02 | External Medical Summary ---
Author Name Unknown Address Unknown Organization K01:[facility] [place] - [address] [facility] [id number] Laboratory Report Ordering Provider Test Date Status JORDENCARLOS CHANEL 03/13/2024 14:54:41 Final Observation Date Value Abnormality Reference (Units ) Status Ferritin 03/13/2024 14:54:41 206 Above high normal 13 -150 (ng/mL) Final Postmenopausal women have hi gher ferritin levels than pre-menopausal women. The above reference interval is based on pre-menopausal women. Performing Location [facility] [place] - [address] [facility] [id number]
[2024-05-12 06:53] LABS: Hematocrit (blood only) 39.6 % (37.0-47.0); Hemoglobin 13.5 g/dl (12.0-16.0); Mean Corpuscular Hemoglobin 29.8 pg (25.0-34.0); Mean Corpuscular Hgb Conc 34.1 g/dL (32.0-36.0); Mean Corpuscular Volume 87.4 fL (80.0-100.0); Mean Platelet Volume 10.6 fL (9.4-12.4); Platelet Count 152 K/uL (130-400); RDW Coefficient of Variation 12.9 % (11.5-14.5); RDW Standard Deviation 40.5 fL (36.4-46.3); Red Blood Count 4.53 M/uL (4.20-5.40); White Blood Count 5.42 K/ul (4.8-10.8)
[2024-05-12 07:01] LABS: BUN Creatinine Ratio 23.3 (10-20); Calcium 8.8 mg/dl (8.6-10.3); Chol HDL Ratio 3.6 (0-5); Creatinine Clr Calc Pharmacy 60.4 ml/min; Est GFR (Non-African American) 63.9 ml/min; Phosphorus 3.1 mg/dl (2.5-4.9); Potassium 3.8 mmol/L (3.5-5.1)
--- NOTE | 2024-05-12 07:08 | Electrocardiogram Report ---
Test Reason : Blood Pressure : / mmHG Vent. Rate : 070 BPM Atrial Rate : 070 BPM P-R Int : 172 ms QRS Dur : 094 ms QT Int : 382 ms P-R-T Axes : 014 -43 008 degrees QTc Int : 412 ms Normal sinus rhythm Left axis deviation Moderate voltage criteria for LVH, may be normal variant ( R in aVL , Miles product ) Abnormal ECG When compared with ECG of 28-AUG-2022 11:40, No significant change was found Confirmed by Ashkan Hernandez ([id number]) on 05/12/2024 7:08:38 AM Referred By: REFERRED SELF Confirmed By:Ashkan Hernandez
[2024-05-12 07:59] LABS: Estimated Average Glucose 120 mg/dl; Hemoglobin A1C 5.8 % (4.5-5.6)
--- NOTE | 2024-05-12 08:49 | Cardiology Consultation ---
Date of Consultation May 12, 2024 Assessment & Plan (1) Chest pain: (2) HTN (hypertension): (3) Family history of coronary artery disease: Plan Patient admitted to [facility] with chest pain and HTN. She has multiple cardiac risk factors including hypertension, dyslipidemia, and family history of premature CAD in multiple family members/siblings. In 2022, she underwent dobutamine stress echo which was negative for inducible ischemia at the HR achieved. She failed to reach target HR at max dose dobutamine/atropine infusion. We had discussed further testing as an outpatient, but her symptoms had resolved at that time. She also has been very hesitant in the past to proceed with invasive testing. Her sister during urgent cath. At this time, since admission, HS troponin negative x3. No acute ischemic EKG changes. BP initially elevated as been trending downward and currently controlled. Continue lisinopril 10 mg BID. Continue atenolol. Echocardiogram ordered and pending. Options discussed with patient and . Recommend proceeding with nuclear Lexiscan stress test to further evaluate chest pain. She had issues with dobutamine last year and not able to reach target HR. She is also not able to ambulate on a treadmill due to orthopedic issues. Patient currently NPO. Will see if nuclear scan can be done today vs tomorrow. Further recommendations pending review of above test results. Case discussed with Dr. Laboy I spent a total of 60 minutes on the date of service in preparation, delivery, and documentation of the care provided to this patient, excluding any time spent in the performance of separately billed services. Sarah Antoine PA-C Department of Cardiology, [facility] [address] This chart was completed in part utilizing Speech Voice Recognition Software. Grammatical errors, random word insertions, pronoun errors, and incomplete sentences are an occasional consequence of this system due to software limitations, ambient noise, and hardware issues. Any formal questions or concerns about the content, text, or information contained within the body of this dictation should be directly addressed to the provider for clarification. Supervising Physician Co-Signing Physician Notes Attending physician attestation. I have personally performed a history and physical examination on the patient. I have reviewed the advance practitioner's documentation, and I agree with, and take responsibility for the plan of care. 73-year-old female presents to the hospital due to chest discomfort with atypical features. High-sensitivity troponin undetectable despite several hours of symptoms. No ischemic ECG changes. Review echocardiogram when available. Proceed with Lexiscan nuclear stress test for further risk stratification. I spent a total of 25 minutes on the date of service in preparation, delivery, and documentation of the care provided to this patient, excluding any time spent in the performance of separately billed services. German Laboy DO, [facility] History of Present Illness Reason for Consultation: Chest pain Requesting Physician: Dr. Cox Attending Physician: Dr. Laboy History of Present Illness Patient is a 73 year old female who was admitted to [facility] with complaints of chest pain. History includes: 1. Palpitations, correlating with atrial and ventricular ectopy, improved with beta kelly 2. Hypertension 3. Dyslipidemia 4. Intermittent atypical chest tightness, negative DSE Oct 2022 but patient failed to reach target HR. 5. Family history of premature CAD - sister passing away during cardiac cath Patient reports she had a headache and neck pain last week. She found her BP to be high and she went to see PCP offfice. BP was high during the visit and lisinopril was increased from 10 to 20 mg daily. She reports her BP remained elevated over the next few days despite this change. Yesterday, she then developed left sided/substernal chest tightness, radiating to her left arm, causing numbness to her left arm and hand. She checked her BP and was once again elevated. Due to all her recent issues/symptoms, patient decided to come to the ER for evaluation. Symptoms resolved in the ER. BP was initially elevated but treated with lisinopril and nitro paste. BP improved. EKG upon arrival demonstrated NSR, without acute ischemic changes. HS troponin negative x3 since admission. At time of consult, patient resting in chair. Feeling ok. Denies recurrent chest pain since admission. No dyspnea. She denies recent or recurrent chest pain at home with normal daily activities. She does report her BP has been high for awhile. No orthopnea, PND or edema. Allergies Allergy/AdvReac Type Severity Reaction Status Date / Time Sulfa (Sulfonamide Allergy Intermediate Hives Verified 03/04/24 13:29 Antibiotics) codeine AdvReac Intermediate "deathly Verified 03/04/24 13:29 sick and I throw up" levofloxacin [From Levaquin] AdvReac Mild Nausea Verified 03/04/24 13:29 Home Medications Medication Instructions Recorded Confirmed Type coenzyme Q10 200 mg capsule (Co 200 mg PO QAM 02/12/19 05/11/24 History Q-10) aspirin 81 mg tablet,delayed 81 mg PO Q OTHER DAY 08/17/20 05/11/24 History release (Ousmane Low Dose Aspirin) fluticasone propionate 50 2 spray intranasal DAILY PRN 08/17/20 05/11/24 History mcg/actuation nasal Allergy Symptoms spray,suspension pantoprazole 40 mg tablet,delayed 40 mg PO DAILYBB 08/28/22 05/11/24 History release atenolol 50 mg tablet 50 mg PO QAM 03/04/24 05/11/24 History lisinopril 10 mg tablet 10 mg PO BID 03/04/24 05/11/24 History mirtazapine 15 mg tablet 15 mg PO HS 03/04/24 05/11/24 History multivitamin 1 tab PO QAM 03/04/24 05/11/24 History pravastatin 40 mg tablet 40 mg PO HS 03/04/24 05/11/24 History Patient History Medical History (Updated 05/12/24 @ 07:10 by Theron Zhu MD) History of basal cell carcinoma Diverticular disease Valvular heart disease "LEAKY VALVE" - FOLLOWS W/ DR. DE SANTIAGO Hypertension Hyperlipidemia Surgical History History of cataract surgery LEFT History of basal cell carcinoma (BCC) excision History of hysterectomy History of esophagogastroduodenoscopy (EGD) History of colonoscopy Family History Sister Diabetes Brother Diabetes Other Heart disease Hypertension Social History Smoking Status: Never smoker Second Hand Exposure: No; Do You Dip or Chew Tobacco: No; Hx Alcohol Use: No Hx Substance Use: No Preferred Language: New Zealander Communication Ability: Effective Visual Impairment: Limited Hearing Ability: Normal Plastics Engineer Required: No Beliefs That Will Affect Care: None marital status: Current Living Situation: Spouse Other Information That Helps Us Care for You: No Feels Safe at Home: Yes Safety Concerns: Feels Safe At This Time Assistive Devices: None, Cane and Walker Review of Systems Review of Systems: All systems reviewed & are unremarkable except as noted in HPI & below Physical Exam Constitutional: WD/WN, vitals as above well developed; no acute distress Neck: normal visual inspection Respiratory: normal respiratory effort Auscultation: lungs clear to auscultation bilaterally Cardiovascular: Rate/Rhythm: regular rate and regular rhythm Heart Sounds: no murmur Vessels: no JVD Extremities: no edema Gastrointestinal (Abdomen): normal bowel sounds, soft, nontender, no hepatosplenomegaly Skin: no rashes, warm and dry Psychiatric: A+Ox3, euthymic affect Results & Data Vital Signs (Past 12 Hours) Vital Signs Temp Pulse Pulse Resp BP BP Pulse Ox 05/12/24 07:34 36.6 C 71 20 126/88 95 05/12/24 03:01 36.6 C 59 L 16 117/77 96 05/12/24 00:00 59 L 05/11/24 23:09 36.7 C 60 17 142/88 H 95 O2 Del Method 05/12/24 07:34 Room Air 05/12/24 03:01 Room Air 05/12/24 00:00 05/11/24 23:09 Room Air Laboratory Results Cardiac Enzymes 05/11/24 05/11/24 05/11/24 Range/Units 12:49 15:12 22:45 AST 21 (13-39) U/L Troponin I High Sens 4.8 5.0 5.8 (0-14) pg/ml Lipids 05/12/24 Range/Units 06:16 Triglycerides 138 (0-150) mg/dl Cholesterol 184 (0-200) mg/dl HDL Cholesterol 51 mg/dl Cholesterol/HDL Ratio 3.6 (0-5) CBC 05/11/24 05/12/24 Range/Units 12:49 06:16 WBC 6.32 5.42 (4.8-10.8) K/ul RBC 4.99 4.53 (4.20-5.40) M/uL Hgb 14.8 13.5 (12.0-16.0) g/dl Hct 43.7 39.6 (37.0-47.0) % Plt Count 189 152 (130-400) K/uL Neut # (Auto) 3.93 (1.40-6.50) K/uL Lymph # (Auto) 1.65 (1.20-3.40) K/uL Wilson # (Auto) 0.55 (0.11-0.59) K/uL Eos # (Auto) 0.13 (0.00-0.50) K/uL Baso # (Auto) 0.03 (0.00-0.20) K/uL Comprehensive Metabolic Panel 05/11/24 05/12/24 Range/Units 12:49 06:16 Sodium 140 139 (136-145) mmol/L Potassium 3.7 3.8 (3.5-5.1) mmol/L Chloride 107 108 H (98-107) mmol/L Carbon Dioxide 27 25 (21-32) mmol/L BUN 19 21 (6-23) mg/dl Creatinine 0.96 0.90 (0.6-1.2) mg/dl Glucose 94 90 (70-99(Fasting)) mg/dl Calcium 9.7 8.8 (8.6-10.3) mg/dl AST 21 (13-39) U/L ALT 22 (7-52) U/L Alkaline Phosphatase 64 (34-104) U/L Total Protein 7.8 (6.0-8.3) gm/dl Albumin 4.5 (3.4-5.0) gm/dl Intake and Output 05/11/24 05/12/24 05/12/24 22:59 06:59 14:59 Intake Total 200 / 200 Output Total 300 / 300 Balance -100 / -100 Intake: Oral 200 / 200 Output: Urine 300 / 300 Other: Other Intake Source Sips Weight 84.9 kg 83.9 kg Weight Measurement Method Chair Scale Standing Scale Diagnostic Findings Telemetry reviewed: NSR in the . Rare PVC, PAC. No concerning arrhythmias EKG reviewed on admission: NSR at 70 bmp LAD Possible voltage criteria for LVH No change from previous in Aug 2022 at [place]. No change from outpatient EKG in Jul 2023 Chest xray reviewed: IMPRESSION: No significant change compared to the prior study. No acute process. Dobutamine stress echo report reviewed dated Oct 2022: The stress echo is negative for inducible ischemia but failed to reach target HR. The qualitative LV ejection fraction is 55-59% (normal). The left ventricular wall motion is normal. The left ventricular ejection fraction increases normally with stress. The left ventricular diastolic function is mildly abnormal (grade I). Medications Administered Current Inpatient Medications Acetaminophen (Acetaminophen 500 Mg Tab) 1,000 mg PO Q8H PRN PRN Reason: pain or fever Stop: 06/10/24 15:43 Aspirin (Aspirin 81 Mg Ectab) 81 mg PO Q48H [facility] Stop: 06/12/24 08:59 Atenolol (Atenolol 50 Mg Tablet) 50 mg PO QAM [facility] Stop: 06/11/24 08:59 Last Admin: 05/12/24 10:41 Dose: 50 mg Heparin Sodium (Porcine) (Heparin Sod 5,000 Unit/0.5 Ml Vial) 5,000 units SQ Q12 [facility] Stop: 06/10/24 20:59 Last Admin: 05/12/24 10:40 Dose: Not Given Lisinopril (Lisinopril 10 Mg Tab) 10 mg PO BID [facility] Stop: 06/10/24 20:59 Last Admin: 05/12/24 10:41 Dose: 10 mg Melatonin (Melatonin 3 Mg Tab) 3 mg PO HS PRN PRN Reason: Sleep Stop: 06/10/24 20:49 Multivitamins (Multivitamin Tab) 1 tab PO QAM [facility] Stop: 06/11/24 08:59 Last Admin: 05/12/24 10:42 Dose: 1 tab Ondansetron HCl (Ondansetron Inj 2 Mg/Ml 2 Ml Vial) 4 mg IV Q6H PRN PRN Reason: Nausea And Vomiting Stop: 06/10/24 15:43 Pantoprazole Sodium (Pantoprazole 40 Mg Tab) 40 mg PO DAILYBB [facility] Stop: 06/11/24 06:29 Last Admin: 05/12/24 10:42 Dose: 40 mg Pravastatin Sodium (Pravastatin Sod 40 Mg Tab) 40 mg PO HS [facility] Stop: 06/10/24 20:59 Last Admin: 05/11/24 21:17 Dose: 40 mg (1) Chest pain Chest pain type: unspecified Qualified Code(s): R07.9 - Chest pain, unspecified
[2024-05-12] MEDS ORDERED: NON-FORMULARY MEDICATION (Coenzyme Q10 [Co Q-10] 200 mg Capsule) PO SCH (09:00)
[2024-05-12] MEDS: ATENOLOL 50 MG TABLET PO SCH (10:41)
[2024-05-12] MEDS: MULTIVITAMIN TAB PO SCH (10:42)
[2024-05-12] MEDS: PANTOprazole 40 MG TAB PO SCH (10:42)
--- NOTE | 2024-05-12 14:59 | Myocardial Perfusion Study ---
Date of Service May 12, 2024 Myocardial Perfusion Study [facility] Myocardial Perfusion Study Report Indication: Chest pain. Summary: Patient performed stress test according to Lexiscan protocol for 3 minutes and 3 seconds, achieving work level of 1.0 METS. The resting heart rate of 61 bpm torrey to a maximal heart rate of 84 bpm. This value represents 56 of the maximal, age-predicted heart rate. The resting blood pressure of 141/107 torrey to a maximum blood pressure of 141/107. Stress test was stopped due to completion of protocol Normal heart rate and blood pressure response to Lexiscan injection. Symptoms: Shortness of breath, nausea. Resting ECG: Normal sinus rhythm with occasional PVCs, LVH, diffuse, nonspecific T wave abnormality. Stress ECG: Mild accentuation of baseline ST-T wave abnormality. No ECG evidence of Lexiscan induced ischemia. Nuclear imaging: For the stress portion of the study 30.8 mCi of technetium 99m Cardiolite was injected at 1320 p.m. on 05/12/2024. 30 minutes following the injection, imaging of the heart was performed in multiple projections. For the rest portion of the study 10.7 mCi of technetium 99m Cardiolite was injected IV at 11:33 AM. 1 hour following the injection, imaging of the heart was performed in the same projections. Raw data: Breast shadowing noted on both rest and stress rotating, raw data images. Right ventricle: Not well-visualized Resting images: Small defect of mild intensity involving the left ventricular ap ex. Otherwise, normal perfusion. Stress images: There is a small defect of severe intensity involving the apical septum, apical anterior wall, and apex. Defect is reversible when compared to resting images and represents ischemia. The remaining left ventricular myocardial wall segments demonstrate normal perfusion. Ischemic burden encompasses 14% of the total myocardium per quantitative analysis. Gated SPECT imaging: Mild hypokinesis of the apical septum, otherwise, normal wall motion. The calculated left ventricular ejection fraction is greater than 70%. TID index was not calculated. Conclusion: 1. Abnormal Lexiscan nuclear myocardial perfusion imaging study demonstrating a small area of apical infarction with moderate lotus-infarct ischemia involving the apical anterior wall, apical septum, and apex. 2. Ischemia involves 14% of the total myocardium per quantitative analysis. 3. Abnormal gated SPECT imaging with apical septal hypokinesis, otherwise, normal wall motion. 4. Calculated left ventricular ejection fraction > 70%. German Laboy DO, [facility]
[2024-05-12] MEDS: REGADENOSON 0.4 MG/5 ML SYR IV ONE (15:17)
--- NOTE | 2024-05-12 18:22 | Hospitalist Progress Note ---
Date of Service May 12, 2024 Assessment & Plan (1) Chest pain: Plan: Pt is a 73yoF with PMHx significant for hypertension, asthma/pulmonary hypertension, Hx of GI bleed, GERD, IBS presenting with atypical chest pain. Atypical Chest Pain States left sided chest pressure for days, worsening Noted to have high blood pressure in the clinic and started on antihypertensive as an outpatient Did not have any acute EKG changes and at bedtime troponin x 3 were negative Appreciate cardiology input and recommendations Has had unsuccessful dobutamine stress echo before Initially she was not agreeable to cardiac cath but after discussion with the patient in detail by the regional economist she was agreeable Likely to have cardiac cath tomorrow She remains free from any symptoms as of this evening (2) HTN (hypertension): Plan: Noted to have very high blood pressure as an outpatient recently Her lisinopril was increased to 20 mg with atenolol 50 mg Blood pressure remains reasonable since admission (3) Asthma: Plan: Well-controlled (4) GERD (gastroesophageal reflux disease): Plan: Has been on Protonix (5) Family history of coronary artery disease: Plan DVT prophylaxis: heparin SQ CODE STATUS-full Dispo: admit to PCU/tele Admission and Anticipated Discharge Date Admission Date: May 11, 2024 Subjective 05/12/2024 The patient was seen and examined in telemetry unit in presence of the She was admitted with atypical chest pain and noted to have very high blood pressure on recent visit to the doctor's office She also complained to have chest pressure 2 days prior to admission She has been free from any chest pain during examination this morning and the blood pressure seems to be stable Review of Systems Review of Systems: All systems reviewed and are unremarkable except as noted below Physical Exam Physical Exam: Sitting on a chair without any acute distress Constitutional: well developed, well nourished, + ill appearing and + obese Eyes: PERRL, conjunctivae normal, anicteric sclerae ENMT: external ear and nose normal, oropharynx normal Neck: trachea midline, no thyromegaly Respiratory: no respiratory distress Auscultation: lungs clear to auscultation bilaterally Cardiovascular: Rate/Rhythm: regular rate and regular rhythm; not tachycardic Heart Sounds: normal S1 and normal S2; no murmur Extremities: + edema (Trace edema bilaterally) Gastrointestinal (Abdomen): Inspection/Auscultation: + abdomen distended and normal bowel sounds Percussion/Palpation: abdomen soft; abdomen nontender Musculoskeletal: No acute arthritis involving any of the joint Neurologic: normal touch/pain/proprioception and moves all extremities; no focal motor deficits Psychiatric: A+Ox3, euthymic affect Lymphatic: no cervical or axillary lymphadenopathy Results & Data Results & Data Vital Signs (Past 12 Hours) Vital Signs Temp Pulse Pulse Resp BP BP Pulse Ox 05/12/24 16:24 66 05/12/24 15:40 36.4 C L 67 22 169/84 H 98 05/12/24 10:19 36.6 C 75 21 136/88 96 05/12/24 07:34 36.6 C 71 20 126/88 95 O2 Del Method 05/12/24 16:24 05/12/24 15:40 Room Air 05/12/24 10:19 Room Air 05/12/24 07:34 Room Air Laboratory Results Short CBC 05/12/24 Range/Units 06:16 WBC 5.42 (4.8-10.8) K/ul Hgb 13.5 (12.0-16.0) g/dl Hct 39.6 (37.0-47.0) % Plt Count 152 (130-400) K/uL BMP 05/12/24 06:16 Sodium 139 Potassium 3.8 Chloride 108 H Carbon Dioxide 25 BUN 21 Creatinine 0.90 Glucose 90 Calcium 8.8 Urine 05/11/24 Range/Units 22:39 Urine Color Yellow Urine Appearance Clear (Clear) Urine pH 6.0 (4.5-7.5) Ur Specific [place] 1.012 (1.000-1.030) Urine Protein Negative (Negative) Urine Glucose (UA) Negative (Negative) Medications Administered Current Inpatient Medications Acetaminophen (Acetaminophen 500 Mg Tab) 1,000 mg PO Q8H PRN PRN Reason: pain or fever Stop: 06/10/24 15:43 Aspirin (Aspirin 81 Mg Ectab) 81 mg PO Q48H [facility] Stop: 06/12/24 08:59 Atenolol (Atenolol 50 Mg Tablet) 50 mg PO QAM [facility] Stop: 06/11/24 08:59 Last Admin: 05/12/24 10:41 Dose: 50 mg Heparin Sodium (Porcine) (Heparin Sod 5,000 Unit/0.5 Ml Vial) 5,000 units SQ Q12 [facility] Stop: 06/10/24 20:59 Last Admin: 05/12/24 10:40 Dose: Not Given Lisinopril (Lisinopril 10 Mg Tab) 10 mg PO BID [facility]AR Stop: 06/10/24 20:59 Last Admin: 05/12/24 10:41 Dose: 10 mg Melatonin (Melatonin 3 Mg Tab) 3 mg PO HS PRN PRN Reason: Sleep Stop: 06/10/24 20:49 Multivitamins (Multivitamin Tab) 1 tab PO QAM [facility] Stop: 06/11/24 08:59 Last Admin: 05/12/24 10:42 Dose: 1 tab Ondansetron HCl (Ondansetron Inj 2 Mg/Ml 2 Ml Vial) 4 mg IV Q6H PRN PRN Reason: Nausea And Vomiting Stop: 06/10/24 15:43 Pantoprazole Sodium (Pantoprazole 40 Mg Tab) 40 mg PO DAILYBB [facility] Stop: 06/11/24 06:29 Last Admin: 05/12/24 10:42 Dose: 40 mg Pravastatin Sodium (Pravastatin Sod 40 Mg Tab) 40 mg PO HS [facility] Stop: 06/10/24 20:59 Last Admin: 05/11/24 21:17 Dose: 40 mg
[2024-05-13 07:16] LABS: Basophils # (auto) 0.03 K/uL (0.00-0.20); Basophils % (auto) 0.5 %; Eosinophils # (auto) 0.14 K/uL (0.00-0.50); Eosinophils % (auto) 2.2 %; Hematocrit (blood only) 41.3 % (37.0-47.0); Hemoglobin 14.1 g/dl (12.0-16.0); Immature Granulocytes # (auto) 0.02 K/uL (0.01-0.20); Immature Granulocytes % (auto) 0.3 %; Lymphocytes # (auto) 2.28 K/uL (1.20-3.40); Lymphocytes % (auto) 36.1 %; Mean Corpuscular Hemoglobin 29.3 pg (25.0-34.0); Mean Corpuscular Hgb Conc 34.1 g/dL (32.0-36.0); Mean Corpuscular Volume 85.9 fL (80.0-100.0); Mean Platelet Volume 11.1 fL (9.4-12.4); Monocytes # (auto) 0.64 K/uL (0.11-0.59); Monocytes % (auto) 10.1 %; Neutrophils # (auto) 3.21 K/uL (1.40-6.50); Neutrophils % (auto) 50.8 %; Platelet Count 156 K/uL (130-400); RDW Standard Deviation 40.3 fL (36.4-46.3); Red Blood Count 4.81 M/uL (4.20-5.40); White Blood Count 6.32 K/ul (4.8-10.8)
[2024-05-13 07:28] LABS: BUN Creatinine Ratio 21.4 (10-20); Calcium 9.2 mg/dl (8.6-10.3); Creatinine Clr Calc Pharmacy 52.5 ml/min; Est GFR (African American) 62.9 ml/min; Est GFR (Non-African American) 54.3 ml/min
[2024-05-13] MEDS: ASPIRIN 81 MG CHEW ONE (07:34)
--- NOTE | 2024-05-13 08:17 | Pre Anesthesia Assessment ---
Date of Service May 13, 2024 Pre Sedation Assessment Vital Signs Temp Pulse Pulse Pulse Resp BP BP 05/13/24 07:54 68 05/13/24 07:30 80 16 147/95 H 05/13/24 03:19 36.6 C 66 17 120/77 05/12/24 22:58 36.9 C 72 17 124/83 05/12/24 22:57 69 05/12/24 19:06 36.8 C 71 16 122/84 05/12/24 16:24 66 05/12/24 15:40 36.4 C L 67 22 169/84 H 05/12/24 10:19 36.6 C 75 21 136/88 Pulse Ox O2 Del Method 05/13/24 07:54 05/13/24 07:30 97 Room Air 05/13/24 03:19 97 Room Air 05/12/24 22:58 98 Room Air 05/12/24 22:57 05/12/24 19:06 95 Room Air 05/12/24 16:24 05/12/24 15:40 98 Room Air 05/12/24 10:19 96 Room Air Cardiovascular + regular rate and + regular rhythm + S1 normal and + S2 normal; no murmur + femoral pulses present and + radial pulses present; no JVD and no carotid bruit no edema Respiratory + respiratory effort normal; no respiratory distress no crackles, no rales, no rhonchi and no wheezes Pre-Sedation Airway Assessment Smoking Status: Never smoker Short, Thick Neck: No Thyromental Distance: > or= 3.5 Finger Breadths Oral Cavity: + WNL Mallampati Class: II ASA: ASA2 NPO Status Date of Last Intake of Fluids: 05/12/24 Time of Last Intake of Fluids: 18:00 Date of Last Intake of Solid Food: 05/12/24 Time of Last Intake of Solid Foods: 18:00 Procedure Planning Contraindications for Sedation: none Current Medications Reviewed: Yes Notes The planned sedation has been discussed with the patient. Informed Consent was obtained. I have identified the patient, determined the appropriateness of sedation and have assessed the patient immediately prior to the procedure. All medicine(s) and interventions are by my order.
[2024-05-13] MEDS: niCARdipine HCL INJ 2.5 MG/ML 10 ML AMP ONE (08:29)
[2024-05-13] MEDS: NITROGLYCERIN/D5W 100MCG/ML 20ML SYR ONE (08:29)
[2024-05-13] MEDS: HEPARIN (PORCINE) 1000 UNIT/ML 10 ML (CATH LAB USE ONLY) ONE (09:19)
[2024-05-13] MEDS: MIDAZOLAM HCL 1 MG/ML 2ML VIAL ONE (09:20)
[2024-05-13] MEDS: fentaNYL citrate PF 100 MCG/2 ML VIAL ONE (09:20)
[2024-05-13] MEDS: IODIXANOL (VISIPAQUE) 320 MG/ML 100ML IV ONE (09:20)
[2024-05-13] MEDS ORDERED: NITROGLYCERIN SL 0.4 MG/TAB TAB SL PRN (09:43)
--- NOTE | 2024-05-13 09:47 | Post Anesthesia Assessment ---
Date of Service May 13, 2024 Post Sedation Assessment Vital Signs Temp Pulse Pulse Pulse Resp BP BP 05/13/24 10:58 36.8 C 77 18 153/89 H 05/13/24 10:57 36.7 C 70 76 18 153/90 H 151/90 H 05/13/24 10:28 36.8 C 74 67 16 158/90 H 05/13/24 10:13 36.7 C 76 18 153/90 H 05/13/24 10:03 70 18 151/90 H 05/13/24 09:45 70 16 149/86 H 05/13/24 09:29 70 18 142/96 H 05/13/24 07:54 68 05/13/24 07:30 80 16 147/95 H 05/13/24 03:19 36.6 C 66 17 120/77 05/12/24 22:58 36.9 C 72 17 124/83 05/12/24 22:57 69 05/12/24 19:06 36.8 C 71 16 122/84 05/12/24 16:24 66 05/12/24 15:40 36.4 C L 67 22 169/84 H BP Pulse Ox O2 Del Method 05/13/24 10:58 97 Room Air 05/13/24 10:57 159/94 H 99 05/13/24 10:28 100 Room Air 05/13/24 10:13 99 Room Air 05/13/24 10:03 96 Room Air 05/13/24 09:45 96 Room Air 05/13/24 09:29 98 Room Air 05/13/24 07:54 05/13/24 07:30 97 Room Air 05/13/24 03:19 97 Room Air 05/12/24 22:58 98 Room Air 05/12/24 22:57 05/12/24 19:06 95 Room Air 05/12/24 16:24 05/12/24 15:40 98 Room Air Recovery Score Activity: Moves 4 extremities Respiration: Deep Breath/Cough Circulation: +/-20% PreAnes Value Consciousness: Fully Awake Discharge Sedation Level of Care: Phase I Post Sedation Plan On clinical assessment, the patient appears to have tolerated the sedation without complications. Patient is recovering as anticipated. Patient will continue to be monitored by nursing and may be discharged when sedation discharge criteria are met per below protocol. Upon Completions of procedure up to 15 minutes continue every 5 minute vital signs and the P.A.R. score; then discharge to a Phase I or Fast Track to Phase II per the following guidelines: * Discharge Patient to appropriate Phase II area if PAR is 8 or greater or return to pre- procedure baseline. The post - procedure orders will be as directed. * If PAR score is less than 8 or not return to pre-procedure baseline then patient will follow Phase I monitoring till PAR is reached for Phase II. The Phase I may be done in procedure room or may call to secure a Phase I area. * If naloxone or flumazenil are used for reversal, hold in Phase I for continued monitoring from when last reversal dose was given for a minimum of 60 minutes or longer pending the nurse and/or physician discretion of patient condition before discharge to Phase II. Please call the Sedation Physician to re-evaluate and complete post-note for discharge to Phase II area. Do NOT discharge from procedure sedation or Phase 1 until post- sedation evaluation note is complete by procedure /sedation MD Sedation Discharge Instructions to be given to the patient at discharge to home.
--- NOTE | 2024-05-13 09:48 | Cardiac Catheterization ---
Cardiac Cath Procedure Full Procedure Date May 13, 2024 Pre-Procedure Diagnosis Pre-Procedure Diagnosis: Angina and Positive Stress Test AUC Score AUC Score: 7 Post-Procedure Diagnosis Post-Procedure Diagnosis: Severe CAD and Normal Intracardiac Pressures Procedure(s) Performed Procedure(s) Performed: Coronary Angiography and Left Heart Cath Inspector Fuel Hose German Laboy DO Video Tape Transferrer(s) Alejandrina RTR Estimated Blood Loss Estimated Blood Loss: 7cc Medication(s) Medication(s): Fentanyl, Heparin, Lidocaine 1%, Nicardipine, Nitroglycerin and Versed Summary of Findings 95% proximal LAD 80% mid RCA 50% proximal OM2 Hemodynamics Rest Ao:: 106/70/87 Final Ao: 120/75/91 LV: 127/-1/5 Recommendations Recommendations: PCI without planned CABG Specimens Specimens: None Radiation Exposure (mGy) 1450 Contrast (mls) 65 Fluids (cc crystalloids) Fluids (cc crystalloids): 135 Nss Drains Drains: N/A Anesthesia Moderate sedation. Start 0844. End 0917. Sedation monitor: Ranjith STACY Procedural Complication(s) None Disposition Orderly Holding/Recovery I attest to the content of the Intraoperative Record and any orders documented therein. Any exceptions are noted below. ACC Data: Orderly Cardiac Status Clinical evaluation leading to the procedure CAD Presenation: Positive Stress Test Anginal Classification: CCS III Heart Failure: No Coronary Anatomy Dominant: Right Left Main (% Stenosis): Normal LAD (% Stenosis): Proximal (30% followed by 95%) D1 (% Stenosis): Ostial (100%, small vessel, fills late, ELIZABETH 1 flow) D2 (% Stenosis): Normal (small vessel) Circumflex (% Stenosis): Normal OM1 (% Stenosis): Normal (small vessel) OM2 (% Stenosis): Proximal (50%) and Mid (20%) L PL1 (% Stenosis): Normal RCA (% Stenosis): Proximal (moderate diffuse disease, 30%), Mid (moderate diffuse 40%, followed by 80%) and Distal (20%) R PDA (% Stenosis): Proximal (20%, small vessel) and Mid (luminal irregularities, 20%) R PL1 (% Stenosis): Normal (small vessel) Diagnostic Physicians Name: German Laboy DO Closure Device Percutaneous Entry Location: Radial Closure Device: Radial Band Recommendations: PCI without planned CABG Intraprocedure Events Significant Disection: No Perforation: No
--- NOTE | 2024-05-13 10:51 | Hospitalist Progress Note ---
Date of Service May 13, 2024 Assessment & Plan (1) Chest pain: Plan: Pt is a 73yoF with PMHx significant for hypertension, asthma/pulmonary hypertension, Hx of GI bleed, GERD, IBS presenting with atypical chest pain. Coronary artery disease Atypical Chest Pain Abnormal nuclear stress test --S/P cardiac cath Needs PCI to LAD, RCA Given complexity of the disease, patient will be transferred to tertiary care facility for further management Continue aspirin, atenolol, lisinopril, statin Needs follow-up with cardiology on discharge (2) HTN (hypertension): Plan: Continue current medications Monitor BP (3) Asthma: Plan: No signs of acute exacerbation (4) GERD (gastroesophageal reflux disease): Plan: Continue PPI (5) Family history of coronary artery disease: Plan DVT Px heparin SQ CODE STATUS full Disposition [facility] Admission and Anticipated Discharge Date Admission Date: May 11, 2024 Subjective Patient is seen and examined at bedside Chest pain resolved Denies any nausea, vomiting, dyspnea, dizziness Discussed with cardiology today Plan to be discharged to tertiary care facility today Review of Systems Review of Systems: All systems reviewed & are unremarkable except as noted in Subjective Physical Exam Physical Exam: Physical Exam: Vitals signs as noted above General Appearance:Obese, no apparent distress Head: normocephalic, Atraumatic Eyes: normal inspection, EOMI Neck: supple, Trachea midline Respiratory/Chest: Normal breath sounds, CTA, No accessory muscle use Cardiovascular: S1, S2, No murmur Abdomen/GI:Soft, Non tender, Bowel sounds present Extremities/Musculoskeletal:normal inspection, no edema Neurologic/Psych:AAOX3, grossly no focal neurological deficits Skin: normal color, warm Results & Data Results & Data Vital Signs (Past 12 Hours) Vital Signs Temp Pulse Pulse Pulse Resp BP BP 05/13/24 10:13 36.7 C 76 18 153/90 H 05/13/24 10:03 70 18 151/90 H 05/13/24 09:45 70 16 149/86 H 05/13/24 09:29 70 18 142/96 H 05/13/24 07:54 68 05/13/24 07:30 80 16 147/95 H 05/13/24 03:19 36.6 C 66 17 120/77 05/12/24 22:58 36.9 C 72 17 124/83 05/12/24 22:57 69 Pulse Ox O2 Del Method 07/24/24 10:13 99 Room Air 05/13/24 10:03 96 Room Air 05/13/24 09:45 96 Room Air 05/13/24 09:29 98 Room Air 05/13/24 07:54 05/13/24 07:30 97 Room Air 05/13/24 03:19 97 Room Air 05/12/24 22:58 98 Room Air 05/12/24 22:57 Laboratory Results Short CBC 05/13/24 Range/Units 05:41 WBC 6.32 (4.8-10.8) K/ul Hgb 14.1 (12.0-16.0) g/dl Hct 41.3 (37.0-47.0) % Plt Count 156 (130-400) K/uL BMP 05/13/24 05:41 Sodium 140 Potassium 4.0 Chloride 107 Carbon Dioxide 25 BUN 22 Creatinine 1.03 Glucose 85 Calcium 9.2
[2024-05-13] MEDS: ASPIRIN 81 MG ECTAB PO SCH (11:10)
--- NOTE | 2024-05-13 14:13 | Cardiology Progress Note ---
Date of Service May 13, 2024 Assessment & Plan (1) CAD (coronary artery disease), [place] coronary artery: (2) Abnormal nuclear stress test: (3) Chest pain: (4) HTN (hypertension): Plan Results of abnormal nuclear stress test and cardiac catheterization discussed with patient and family at bedside. Agreeable to transfer to [facility] in [place] for percutaneous intervention of the left anterior descending artery and right coronary artery. Case reviewed with the inpatient cardiology service. Patient accepted for transfer. Continue current cardiovascular medications including aspirin, atenolol, lisinopril, and statin therapy. Postprocedural activity restrictions reviewed. All questions answered to satisfaction of both the patient and her family. I spent a total of 40 minutes on the date of service in preparation, delivery, and documentation of the care provided to this patient, excluding any time spent in the performance of separately billed services. Admission and Anticipated Discharge Date Admission Date: May 11, 2024 Subjective Patient evaluated postcardiac catheterization. Coronary angiography demonstrating significant two-vessel disease with 95% proximal LAD, and 80% mid right coronary artery stenosis. Percutaneous intervention recommended. Patient currently chest pain-free. Family at bedside. Review of Systems Review of Systems: All systems reviewed & are unremarkable except as noted in Subjective Physical Exam ENMT: Mallampati Class: II Respiratory: normal respiratory effort; no respiratory distress Auscultation: no crackles, no rales, no rhonchi and no wheezes Cardiovascular: Rate/Rhythm: regular rate and regular rhythm Heart Sounds: normal S1 and normal S2; no murmur Vessels: femoral pulses present and radial pulses present; no JVD and no carotid bruit Extremities: no edema Results & Data Vital Signs (Past 12 Hours) Vital Signs Temp Pulse Pulse Pulse Resp BP BP 05/13/24 10:58 36.8 C 77 18 153/89 H 05/13/24 10:57 36.7 C 70 76 18 153/90 H 151/90 H 05/13/24 10:28 36.8 C 74 67 16 158/90 H 05/13/24 10:13 36.7 C 76 18 153/90 H 05/13/24 10:03 70 18 151/90 H 05/13/24 09:45 70 16 149/86 H 05/13/24 09:29 70 18 142/96 H 05/13/24 07:54 68 05/13/24 07:30 80 16 147/95 H 05/13/24 03:19 36.6 C 66 17 120/77 BP Pulse Ox O2 Del Method 05/13/24 10:58 97 Room Air 05/13/24 10:57 159/94 H 99 05/13/24 10:28 100 Room Air 05/13/24 10:13 99 Room Air 05/13/24 10:03 96 Room Air 05/13/24 09:45 96 Room Air 05/13/24 09:29 98 Room Air 05/13/24 07:54 05/13/24 07:30 97 Room Air 05/13/24 03:19 97 Room Air (1) CAD (coronary artery disease), [place] coronary artery [place] vs. transplanted heart: [place] heart Associated angina: with stable angina Qualified Code(s): I25.118 - Atherosclerotic heart disease of [place] coronary artery with other forms of angina pectoris (3) Chest pain Chest pain type: unspecified Qualified Code(s): R07.9 - Chest pain, unspecified (4) HTN (hypertension) Hypertension type: primary hypertension Qualified Code(s): I10 - Essential (primary) hypertension
--- NOTE | 2024-05-13 18:30 | Discharge Summary ---
Date of Service May 13, 2024 Admission HPI Per Admitting Provider Pt is a 73yoF with PMHx significant for hypertension, asthma/pulmonary hypertension, Hx of GI bleed, GERD, IBS presenting with atypical chest pain. and brother at bedside helping with the history. Pt states that for the past week she has been having headache and "pains in the neck" so she went to the medical center in [facility] to be evaluated. She states she was told to take 2 lisinopril pills and increase her dose to 20mg a day with her atenolol. She states she has been doing that with no relief. She notes that she has been checking her BP and it remained persistently high. However, she was prompted to come to the ED when she developed chest pressure for the last 2 days that would not go away. Rates it as 4/10 on the left. Notes occasional palpitations. States she took some tylenol to help but it did not go away. Notes she cannot take ibuprofen due to her medical history. Denies recent activity, states that the pains have actually made her less active. Denies SOB or a Hx of blood clots. States she has chronic cough and rhinorhea and those symptoms remain unchanged. Denies N/V/D. Denies Dysuria. States there is increased urinary frequency but notes that she has been drinking more water over the past few days. Denies a Hx of reflux but notes a hx of IBS that she states she takes pantoprazole for. States that her mother and sister from heart attacks. States brother in the room had stents placed. They note that her eight siblings all have "heart stuff" that include Hx of OH and stent and pacemaker placement. Was given aspirin 324mg and po Nitrostat 0.4mg in the ED. Admission Exam Per Admitting Provider General: Alert, oriented. No acute distress Skin: No noted rashes or bruises Psych: Appropriate mood and affect Neuro: No gross deficits while sitting up in bed HEENT: NC/AT Chest: Nontender to palpation. CV: RRR Resp: Breath sounds clear bilaterally, no increased effort of breathing. Abdomen: Soft, nontender Extremities: No edema in lower extremities bilaterally Principal Diagnosis Coronary Artery Disease Discharge Data Allergies Allergy/AdvReac Type Severity Reaction Status Date / Time Sulfa (Sulfonamide Allergy Intermediate Hives Verified 05/13/24 07:35 Antibiotics) codeine AdvReac Intermediate "deathly Verified 05/13/24 07:35 sick and I throw up" levofloxacin [From Levaquin] AdvReac Mild Nausea Verified 05/13/24 07:35 Consultations 05/11/24 14:01 ED Decision to Admit Stat 05/11/24 14:59 Consult Cardiology Routine 05/13/24 10:49 Burn CD for patient Stat Procedures Performed Operation Date: 05/13/24 08:00 Actual Procedures p Cineradiography w/Routine Exam - German Laboy DO s Cath, Left with Cors and Vent - German Laboy DO Laboratory Results WBC 6.32 K/ul (4.8-10.8) 05/13/24 05:41 RBC 4.81 M/uL (4.20-5.40) 05/13/24 05:41 Hgb 14.1 g/dl (12.0-16.0) 05/13/24 05:41 Hct 41.3 % (37.0-47.0) 05/13/24 05:41 MCV 85.9 fL (80.0-100.0) 05/13/24 05:41 MCH 29.3 pg (25.0-34.0) 05/13/24 05:41 MCHC 34.1 g/dL (32.0-36.0) 05/13/24 05:41 RDW Std Deviation 40.3 fL (36.4-46.3) 05/13/24 05:41 RDW Coeff of [place] 13.0 % (11.5-14.5) 05/13/24 05:41 Plt Count 156 K/uL (130-400) 05/13/24 05:41 MPV 11.1 fL (9.4-12.4) 05/13/24 05:41 Immature Gran % (Auto) 0.3 % 05/13/24 05:41 Neut % (Auto) 50.8 % 05/13/24 05:41 Lymph % (Auto) 36.1 % 05/13/24 05:41 [place] % (Auto) 10.1 % 05/13/24 05:41 Eos % (Auto) 2.2 % 05/13/24 05:41 Baso % (Auto) 0.5 % 05/13/24 05:41 Neut # (Auto) 3.21 K/uL (1.40-6.50) 05/13/24 05:41 Lymph # (Auto) 2.28 K/uL (1.20-3.40) 05/13/24 05:41 [place] # (Auto) 0.64 K/uL (0.11-0.59) H 05/13/24 05:41 Eos # (Auto) 0.14 K/uL (0.00-0.50) 05/13/24 05:41 Baso # (Auto) 0.03 K/uL (0.00-0.20) 05/13/24 05:41 Immature Gran # (Auto) 0.02 K/uL (0.01-0.20) 05/13/24 05:41 Sodium 140 mmol/L (136-145) 05/13/24 05:41 Potassium 4.0 mmol/L (3.5-5.1) 05/13/24 05:41 Chloride 107 mmol/L (98-107) 05/13/24 05:41 Carbon Dioxide 25 mmol/L (21-32) 05/13/24 05:41 Anion Gap 8 (3-11) 05/13/24 05:41 BUN 22 mg/dl (6-23) 05/13/24 05:41 Creatinine 1.03 mg/dl (0.6-1.2) 05/13/24 05:41 Est Cr Clr Drug Dosing 52.5 ml/min 05/13/24 05:41 Est GFR ( Amer) 62.9 ml/min 05/13/24 05:41 Est GFR (Non-Af Amer) 54.3 ml/min 05/13/24 05:41 BUN/Creatinine Ratio 21.4 (10-20) H 05/13/24 05:41 Glucose 85 mg/dl (70-99(Fasting)) 05/13/24 05:41 Estimat Average Glucose 120 mg/dl 05/12/24 06:16 Hemoglobin A1c 5.8 % (4.5-5.6) H 05/12/24 06:16 Calcium 9.2 mg/dl (8.6-10.3) 05/13/24 05:41 Phosphorus 3.1 mg/dl (2.5-4.9) 05/12/24 06:16 Magnesium 2.0 mg/dl (1.7-2.4) 05/13/24 05:41 Total Bilirubin 0.7 mg/dl (0.2-1.0) 05/11/24 12:49 AST 21 U/L (13-39) 05/11/24 12:49 ALT 22 U/L (7-52) 05/11/24 12:49 Alkaline Phosphatase 64 U/L (34-104) 05/11/24 12:49 Troponin I High Sens 5.8 pg/ml (0-14) 05/11/24 22:45 Total Protein 7.8 gm/dl (6.0-8.3) 05/11/24 12:49 Albumin 4.5 gm/dl (3.4-5.0) 05/11/24 12:49 Globulin 3.3 gm/dl (2.5-4.0) 05/11/24 12:49 Albumin/Globulin Ratio 1.4 (0.9-2) 05/11/24 12:49 Triglycerides 138 mg/dl (0-150) 05/12/24 06:16 Cholesterol 184 mg/dl (0-200) 05/12/24 06:16 LDL Cholesterol, Calc 105 mg/dl 05/12/24 06:16 VLDL Cholesterol, Calc 28 mg/dl (0-30) 05/12/24 06:16 HDL Cholesterol 51 mg/dl 05/12/24 06:16 Cholesterol/HDL Ratio 3.6 (0-5) 05/12/24 06:16 Lipase 52 U/L (11-82) 05/11/24 12:49 Urine Color Yellow 05/11/24 22:39 Urine Appearance Clear (Clear) 05/11/24 22:39 Urine pH 6.0 (4.5-7.5) 05/11/24 22:39 Ur Specific [place] 1.012 (1.000-1.030) 05/11/24 22:39 Urine Protein Negative (Negative) 05/11/24 22:39 Urine Glucose (UA) Negative (Negative) 05/11/24 22:39 Urine Ketones Negative (Negative) 05/11/24 22:39 Urine Blood Negative (Negative) 05/11/24 22:39 Urine Nitrite Negative (Negative) 05/11/24 22:39 Urine Bilirubin Negative (Negative) 05/11/24 22:39 Urine Urobilinogen Negative (Negative) 05/11/24 22:39 Ur Leukocyte Esterase Negative (Negative) 05/11/24 22:39 Impressions Chest X-Ray 05/11/24 12:48 XR chest 1V portable HISTORY: Chest pain, nonspecific COMPARISON: Chest 08/28/2022. FINDINGS: No pneumothorax. No pleural effusions. A few bibasilar linear densities favor subsegmental atelectasis or scarring. This is similar to the prior study. Otherwise, no new focal lung consolidations to suggest a pneumonia. No evidence for pulmonary edema. The cardiac silhouette remains mildly enlarged. There is a tortuous thoracic aorta again noted. No acute fractures. IMPRESSION: No significant change compared to the prior study. No acute process. ACT 112: Negative or not required by law. Electronically signed by: Diaz Rubio M.D. 05/11/2024 2:20 PM Ordered Studies 05/13/24 06:46 CL Cath Imgs for PACS use only Routine Hospital Course (1) Chest pain: Pt is a 73yoF with PMHx significant for hypertension, asthma/pulmonary hypertension, Hx of GI bleed, GERD, IBS presenting with atypical chest pain. Coronary artery disease Atypical Chest Pain Abnormal nuclear stress test --S/P cardiac cath Needs PCI to LAD, RCA Given complexity of the disease, patient will be transferred to tertiary care facility for further management Continue aspirin, atenolol, lisinopril, statin Needs follow-up with cardiology on discharge (2) HTN (hypertension): Continue current medications Monitor BP (3) Asthma: No signs of acute exacerbation (4) GERD (gastroesophageal reflux disease): Continue PPI (5) Family history of coronary artery disease: Plan DVT Px heparin SQ CODE STATUS full Disposition [facility] Total Time Total Time Spent Total Time Spent (In Minutes): 54 minutes Discharge Plan Discharge Items Patient Disposition: Transfer Acute Care Hospital Reason For Visit: CHEST PAIN Discharge Diagnosis: Coronary Artery Disease Activity: Per Instructions section Exercise/Sports: Wait until after follow-up appointment Non-emergency contact: Primary Care Provider and [employer] Call non-emergency contact if: you have any medication questions, your symptoms worsen, your pain is concerning for you and you have a fever Follow-up/Referrals: Jasmina Taylor MD [Primary Care Provider] - Diet: Heart Healthy Addtl Attending Provider Instructions: Follow up with Dr[facility]Joyce Woodward at [facility] for further management. Seek immediate medical attention if your symptoms reoccur or worsen Please take all medications as instructed on discharge list below. Please call if you have any questions or problems. You can reach a [facility] hospitalist on duty at [facility] 24 hours a day by calling [phone] Home Care: * Take your medications exactly as directed. Don't skip doses. * Remember that recovery after a heart attack takes time. Plan to rest for at lease 4-8 weeks while you recover. Then return to normal activity when your doctor says it's okay. * Ask your doctor about joining a heart rehabilitation program. * Tell your doctor if you are feeling depressed. Feelings of sadness are common after a heart attack, but it is important that you speak to someone if you are feeling overwhelmed by these feelings. * If you are having chest pain, call 911 for an ambulance. Do NOT drive yourself to the hospital. * Ask your family members to learn CPR. * Learn to take your own blood pressure and pulse. Keep a record of your results. Ask your doctor when you should seek emergency medical attention. He or she will tell you which blood pressure reading is dangerous. Lifestyle Changes: * Maintain a healthy weight. Get help to lose any extra pounds. * Cut back on salt. * Limit canned, dried, packaged, and fast foods. * Don't add salt to your food. * Season foods with herbs instead of salt when you cook. * Break the smoking habit. Enroll in a stop-smoking program to improve your chances of success. * Limit fatty foods. * Ask your doctor about having your lipid levels checked regularly. * Build up your activity according to your doctor's recommendation. * Ask your doctor when it's okay to resume sexual activity. * Tell your doctor about any erectile dysfunction (ED) medication you are taking. Some ED medications are not safe if you take certain heart medications. * Try to manage stress. Follow Up: It is important for you to keep your follow up appointments with your medical provider. Addtl Health Physics Technician Provider Instructions: ACTIVITY RECOMMENDATIONS: Excess manipulation of the wrist should be avoided for the next 24-48 hours. * No lifting over 2 pounds (approximately a 1/2 gallon of milk) with the utilized arm for 24 hours. * No strenuous activity such as bowling or tennis for 3 days. * Keep the site of the procedure covered with a bandage for 24 hours. *You may shower the day after the procedure. Do not take a tub bath or submerge the puncture site in water for the next 3 days. *Do not operate any motorized equipment for 3 days. SPECIAL CARE INSTRUCTIONS: The site may be slightly bruised and sore following your procedure. Should any of the following occur, contact the Dr. who performed your procedure. 1. Redness/inflammation, swelling, chills, or fever, or colored drainage at procedure site within 3-7 days after your procedure. 2. Coldness, discoloration, ongoing numbness, severe pain, or swelling. Expect mild tingling of hand and tenderness at the puncture site for up to three days. If this persists beyond three days, or other symptoms develop, notify the Dr. who performed your procedure. BLEEDING: If the procedure site on your wrist begins to bleed, do not panic 1. Place 1 or 2 fingers firmly just slightly above the insertion site to stop the bleeding. You may be able to feel your pulse as you hold pressure. 2. Lift your finger after 5 minutes to see if the bleeding has stopped. 3. Once the bleeding has stopped, gently wipe the wrist area clean with a bandage. * If the bleeding from your wrist does not stop after 10 minutes, or if there is a large amount of bleeding or spurting, call 911 (do not drive yourself to the hospital). SKIN IRRITATION: * You may experience some redness and/or swelling in the area where radiation was administered. If any skin irritation occurs, please contact your family physician. FOLLOW UP VISIT: Keep any scheduled doctor appointments. Pending Studies at Discharge: No Studies:: Current Inpatient Medications Acetaminophen (Acetaminophen 500 Mg Tab) 1,000 mg PO Q8H PRN PRN Reason: pain or fever Stop: 06/10/24 15:43 Aspirin (Aspirin 81 Mg Ectab) 81 mg PO Q48H [facility] Stop: 06/12/24 08:59 Atenolol (Atenolol 50 Mg Tablet) 50 mg PO QAM [facility] Stop: 06/11/24 08:59 Last Admin: 05/12/24 10:41 Dose: 50 mg Heparin Sodium (Porcine) (Heparin Sod 5,000 Unit/0.5 Ml Vial) 5,000 units SQ Q12 [facility] Stop: 06/10/24 20:59 Last Admin: 05/12/24 20:11 Dose: 5,000 units Lisinopril (Lisinopril 10 Mg Tab) 10 mg PO BID [facility] Stop: 06/10/24 20:59 Last Admin: 05/12/24 20:10 Dose: 10 mg Melatonin (Melatonin 3 Mg Tab) 3 mg PO HS PRN PRN Reason: Sleep Stop: 06/10/24 20:49 Multivitamins (Multivitamin Tab) 1 tab PO QAM [facility] Stop: 06/11/24 08:59 Last Admin: 05/12/24 10:42 Dose: 1 tab Nitroglycerin (Nitroglycerin Sl 0.4 Mg/Tab Tab) 0.4 mg SL Q5M PRN PRN Reason: Chest Pain Stop: 06/12/24 09:42 Ondansetron HCl (Ondansetron Inj 2 Mg/Ml 2 Ml Vial) 4 mg IV Q6H PRN PRN Reason: Nausea And Vomiting Stop: 06/10/24 15:43 Pantoprazole Sodium (Pantoprazole 40 Mg Tab) 40 mg PO DAILYBB [facility] Stop: 06/11/24 06:29 Last Admin: 05/13/24 06:38 Dose: 40 mg Pravastatin Sodium (Pravastatin Sod 40 Mg Tab) 40 mg PO HS [facility] Stop: 06/10/24 20:59 Last Admin: 05/12/24 20:09 Dose: 40 mg Stand-Alone Forms: [facility] Skilled Items Patient informed of condition?: Yes DNR: No Discharge Level of Care: Other Communicable Disease: No Discharge Prognosis: Stable Lines: Peripheral IV Urinary Catheter: No Medications and DC Order Prescriptions: Continued coenzyme Q10 [Co Q-10] 200 mg Capsule 200 mg PO QAM aspirin [Ousmane Low Dose Aspirin] 81 mg Tablet,Delayed Release (Dr/Ec) 81 mg PO Q OTHER DAY Rx Instructions: PER PT "TAKE ON OCCASION". fluticasone propionate 50 mcg/actuation Allen,Suspension 2 spray INTRANASAL DAILY PRN (Reason: Allergy Symptoms) pantoprazole 40 mg tablet,delayed release (DR/EC) 40 mg PO DAILYBB multivitamin Tablet 1 tab PO QAM pravastatin 40 mg tablet 40 mg PO HS lisinopril 10 mg tablet 10 mg PO BID mirtazapine 15 mg tablet 15 mg PO HS atenolol 50 mg tablet 50 mg PO QAM Discharge Orders: Discharge Order (Routine); Ordered 05/13/24 Ordered By: Lebron Leigh Admission Data Admit Date/Time: 05/11/24 14:34 Attending Provider: Lebron Leigh Admit Provider: Michaela Cox Primary Care Provider: Jasmina Taylor Other Providers: Michaela Cox; German Laboy Other Interventions: Discharge Summary Assessment (RN) Last Done: 05/13/24 10:57
== END 2024-05-13 12:42 | disposition short-term general hospital (02) | DRG 287 ==
LOC: ED 12:28 → 2S 14:34 → SUATTDRO 14:34 → 2S 19:22

== ENCOUNTER 2024-06-06 15:36 | Inpatient (IN) ==
--- OUTSIDE RECORDS SUMMARY | 2024-06-06 15:44 | External Medical Summary | Summary of Care ---
Author Name Unknown Organization [facility] Address [address] [place] [address] Phone [phone] Care Team Providers Care General Ophthalmologist Name Role Phone Jasmina Taylor MD Primary Care Provide r Reason for Visit * Reason Onset Date Comments Triage Advice 05/21/2024 Encounter Details Date Type Department Care Team (Late st Contact Info) Description 05/21/2024 Jar Filler Telephone Care Coordination and Integration [address] [place] [address] Faby Kraus LPN [address], [place] [phone] Triage Advice Allergies Active Allergy Reactions Criticality Noted Date Comments Baclofen 04/26/2022 Vertigo/extreme dizziness Codeine 02/18/2013 "deathly sick" Levofloxacin Nausea/vomiting 08/12/2018 Sulfa Antibiotics 08/25/2001 Rash documented as of this encounter (statuses as of 05/26/2024) Medications Medication Sig Dispensed Refills Start Date End Date Status Coenzyme Q10 10 MG Capsule Take 2 Capsules by mouth in the morning. 02/12/2019 Active Multiple Vitamins-Minerals (MULTIVITAMIN ADULTS) TABS Take 1 Tab by mouth daily. Active aspirin enteric coated 81 MG TBEC Take 1 Tablet by mouth in the morning. 05/24/2020 Active Hydrocortisone 2.5 % External CreamIndications:Hem orrhoids, unspecified hemorrhoid type Apply topically to affected area 2 times a day. 28 g 01/14/2023 Active Pantoprazole Sodium 40 MG Oral Tablet Delayed Release (Protonix)Indication s:Gastroesophageal reflux disease without esophagitis Take 1 Tablet by mouth in the morning. 30 minutes before the first meal of the day. Do not crush, split or chew the tablet. 90 Tablet 3 10/28/2023 Active Pravastatin Sodium 40 MG Oral Tablet (Pravachol) Take 1 Tablet by mouth daily with dinner 100 Tablet 1 02/24/2024 Active Mirtazapine 15 MG Oral Tablet (Remeron) Take 1 Tablet by mouth at bedtime. 90 Tablet 03/13/2024 Active Amiodarone HCl 200 MG Oral Tablet (Cordarone) Take 1 Tablet by mouth daily with breakfast. Until gone, do not renew 30 Tablet 05/20/2024 Active Atenolol 25 MG Oral Tablet (Tenormin)Indication s:HTN, goal below 140/90 Take 1 Tablet by mouth in the morning. 30 Tablet 1 05/20/2024 Active Furosemide 40 MG Oral Tablet (Lasix) Take 1 Tablet by mouth in the morning and 1 Tablet in the evening. For 1 week, then decrease to 1 tab daily until gone. Do not start before May 21, 2024. 35 Tablet 05/21/2024 Active Potassium Chloride ER 10 MEQ Oral Tablet Extended Release Take 2 Tablets by mouth in the morning. Take with lasix until gone. 60 Tablet 05/20/2024 Active traMADol HCl 50 MG Oral Tablet (Ultram) Take 0.5 Tablets by mouth every 6 hours as needed for Pain, Moderate. 10 Tablet 05/20/2024 Active documented as of this encounter (statuses as of 05/26/2024) Active Problems Problem Noted Date Diagnosed Date Pulmonary hypertension 05/25/2024 S/P CABG x 3 05/25/2024 Postoperative atrial fibrillation 05/25/2024 Hypertensive urgency 05/14/2024 Coronary artery disease 05/13/2024 Multiple vessel coronary artery disease 05/13/20 24 Primary osteoarthritis of right knee 03/13/2024 Hiatal [...] as of this encounter (statuses as of 05/26/2024) Resolved Problems Problem Noted Date Diagnosed Date Resolved Date ACS (acute coronary syndrome) 05/14/2024 05/25/2024 Multinodular goiter 08/13/2023 08/14/20 23 Nephrolithiasis 03/14/2021 [...] as of this encounter (statuses as of 05/26/2024) Immunizations Name Administration Dates Next Due COVID-19 mRNA, LNP-s, No Pre serve, 2-Dose Series (AntCor) 08/22/2021,12/14/2020,11/23/2020 COVID-19, LNP-s, No Preserve , Clive-sucrose, Ages 12+ (Pfizer) 02/13/2022 COVID-19, MRNA-LNP, 23-24, P F, 30 MCG/0.3 mL, 12 YRS AND ABOVE, IM ([facility]) 08/23/2023 Covid-19, Mrna, Lnp-s, Pf, B ivalent, 30 Mcg, IM, 12 yrs and above (AntCor) 07/24/2022 Pneumococcal Conjugate Vacc, 13 Valent (Prevnar) 11/27/2016 Pneumococcal Polysaccharide PPV23 (Pneumovax) 01/22/2019,11/09/2013 Season Influenza, Quad, PF, Adjuvanted, 65+ Yrs, IM (FLUAD) 07/09/2020 Seasonal Influenza, PF, 6 M & above, IM , (FluLaval or Fluzone) 07/15/2018 Seasonal Influenza, Quadriva lent Hd (Fluzone Hd) 07/06/2023,07/07/2022,06/29/2021 Seasonal Influenza, Quadriva lent, No Preserve, IM 07/09/2017,08/04/2016,08/06/2015 Seasonal Influenza, Split, I IV3, With Preserve, Inj 07/07/2014,08/04/2013,07/10/2012,07/24,08/08/2010,07/12/2009,08/19/2008 ,08/26/2007,08/06/2006,08/21/2005 Seasonal Influenza, Trivalen t, Adjuvanted, 65+ yrs [...] money to get more. Never true 06/12/2023 Childcare Answer Date Recorded Do you feel overwhelmed with taking care of a child, family member or friend? No 06/12/2023 Does your family need help f inding childcare? (Household - for ages 0-17 years) Not on file 06/12/2023 Clothing Answer Date Recorded Have you been unable to get clothing when it was really needed? No 06/12/2023 Is your family able to get c lothes or diapers when needed? (Household - for ages 0-17 years) Not on file 06/12/2023 Personal Safety Answer Date Recorded Do you feel unsafe or have concerns for your saf ety? No 05/13/2024 Do you have concerns for you r family's safety? (Household - for ages 0-17 years) Not on file 05/13/2024 Utilities Answer Date Recorded Do you have trouble paying y our heating, water, or electric bill? No 05/13/2024 Is your family able to pay t he heat, water, or electric bill? (Household - for ages 0-17 years) Not on file 05/13/2024 Does your family have access to good internet? (Household - for ages 0-17 years) Not on file 05/13/2024 Employment Status Answer Date Recorded Are you unemployed or without regular income? No 06/12/2023 Does the household have a re gular source of income? (Household - for ages 0-17 years) Not on file 06/12/2023 Social Connections Answer Date Recorded How often do you feel lonely or isolated from th ose around you? Never 06/12/2023 Financial Resource Strain Answer Date R ecorded Do you have any trouble payi ng for your medications, or do you think you might in the future? No 06/12/2023 Does your family have troubl e paying for medicine? (Household - for ages 0-17 years) Not on file 06/12/2023 Transportation Needs Answer Date Record ed READ ONLY Do you have troubl e getting a ride to medical visits or work? Never True 05/13/2024 Does your family have a hard time getting a ride to doctors visits? (Household - for ages 0-17 years) Not on file 05/13/2024 Has lack of transportation k ept you from medical appointments, meetings, work, or from getting things needed for daily living? Check all that apply. No 05/13/2024 Do you (or your family) have trouble finding or paying for a ride (transportation)? (Household - for ages 0-17 years) Not on file 05/13/2024 Housing Stability Answer Date Recorded Do you currently live in a s helter or have no steady place to sleep at night? No 05/13/2024 READ ONLY Do you think you a re at risk of becoming homeless? No 05/13/2024 Does your family worry about paying for your home or becoming homeless? (Household - for ages 0-17 years) Not on file 0 05/13/2024 Are you homeless or worried that you might be in the future? No 05/13/2024 Are you (or your family) kortney eless or worried that you might be in the future? (Household - for ages 0-17 years) Not on file Food Insecurity Answer Date Recorded Do you need food for this week? No 05/13/2024 Are you able to get enough f ood for your family? (Household - for ages 0-17 years) Not on file 05/13/2024 Does your family need food t his week? (Household - for ages 0-17 years) Not on file 05/13/2024 Do you always have enough fo od for your family? (Household - for ages 0-17 years) Not on file 05/13/2024 Sex and Gender Information Value Date Recorded Sex Assigned at Female 05/10/2021 9:04 AM EDT Gender Identity Female 05/10/2021 9:04 AM EDT Sexual Orientation Straight 05/10/2021 9: 04 AM EDT Job Start Date Occupation Industry Not on file Not on file Not on file documented as of this encounter Functional Status Functional Status Response Date of Assess ment Are you deaf or do you have serious difficulty h earing? No 05/13/2024 Are you blind or do you have serious difficulty seeing, even when wearing glasses? No 05/13/2024 Do you have serious difficul ty walking or climbing stairs? (5 years old or older) No 05/13/2024 Do you have difficulty dress ing or bathing? (5 years old or older) No 05/13/2024 Because of a physical, menta l, or emotional condition, do you have difficulty doing errands alone such as visiting a doctor s office or shopping? (15 years old or older) No 05/13/20 Cognitive Status Response Date of Assessm ent Because of a physical, menta l, or emotional condition, do you have serious difficulty concentrating, remembering, or making decisions? (5 years old or older) No 05/13/2024 documented as of this encounter Miscellaneous Notes * Telephone Encounter - Merissa Esteves LPN - 05/26/2024 5:01 PM EDT Patient aware and verbalized understanding, will comply * Telephone Encounter - Amee Davenport LPN - 05/26/2024 4:51 PM EDT See MyG, Dr. Taylor sent a message and prescribed doxy. * Telephone Encounter - Jasmina Taylor MD - 05/21/2024 2:18 PM EDT Cough likely from pleural effusions postop. Monitor for fever, chills, or cough productive of phlegm. * Telephone Encounter - Faby Kraus LPN - 05/21/2024 1:51 PM EDT CM contacted Pt for YOLETTE follow up. Pt has cough and says she developed it after surgery. CM was going to request CXR, but seems it was done yesterday before discharge. Can you please review and advise. Thank you. documented in this encounter Plan of Treatment Upcoming Encounters Date Type Department Care Team (Late st Contact Info) Description 05/29/2024 3:30 PM EDT Telemedicine Cardiothoracic Surg [facility], [place] [address] [place] [address] Noé Luciano PA-C [address] [place] [address] 06/17/2024 9:00 AM EDT Nurse Only Ancillary [address] [place] [address] [place], Nurse [address] [place] [address] 06/24/2024 1:00 PM EDT Office Visit Cardiothoracic Surg [place] [address] [place] [address] Alfonso Jay MD [address] [place] [address] 07/02/2024 9:30 AM EDT Office Visit Cardiology [address] [place] [address] Sarah Antoine PA-C [address] [place] [address] 08/25/2024 1:40 PM EST Office Visit Family Medicine [address] [place] [phone] Jasmina Taylor MD [address] [place] [address] [place] [address] 10/05/2024 2:00 PM EST Office Visit Gastroenterology, [facility] [address] [place] [address] Martha Porter CRNP [address] [place] [address] Scheduled Procedures Name Priority Associated Diagnoses Date/Ti me COLONOSCOPY FLEXIBLE PROXIMA L DIAGNOSTIC Recall Encounter for screening colonoscopy Health Maintenance Due Date Last Done Comments Sigmoidoscopy 1996 DTaP,Tdap,and Td Vaccines (2 - Td or Tdap) 07/14/2018 07/14/2008 Fecal Occult Blood Test 09/16/2020 09/16/2019, 12/05 Cologuard 01/27/2021 01/27/2018 Adult Wellness Visit 06/12/2024 06/12/2023, 05/11/2022, 05/10/2021 Depression Screening 06/12/2024 06/12/2023 Influenza Vaccine (FLU shot) (#1) 2024 07/06/2023, 07/07/2022, 06/29/2021, Additional history exists Mammogram 11/13/2024 11/13/2023, 10/21, 11/06/2022, Additional history exists Albumin/Creatinine Ratio 12/11/2024 12/11/2021, 1212/2018 DXA Scan 02/27/2025 02/27/2022, 02/18, 01/21/2019, Additional history exists GFR 05/20/2025 05/20/2024, 04/22, 05/18/2024, Additional history exists Colonoscopy 03/15/2033 03/15/2023, 02/19, 08/20/2018, Additional history exists Colorectal Cancer Screening 03/15/2033 Pneumococcal Vaccine: 65+ Years Completed 01/22/2019, 11/27/2016, 11/09/2013 Zoster Vaccines Completed 05/16/2021, 02/19, 02/19/2013 COVID-19 Vaccine Discontinued 08/23/2023, 01/2022, 02/13/2022, Additional [...] documented as of this encounter Medical Devices Implanted Type Area Patching Machine Operator Device Identifier Shelf Expiration Date Model / Serial / Lot Suture Steel 6 B&S19 M654g - [id number] Implanted:Qty: 7 on 05/15/2024 by Alfonso Jay MD at OR [facility] [place] N/A: Sternum JNJ : [employer] 08/20/2028 M654G / / TMMAST Marker Coronary - [id number] Implanted:Qty: 1 on 05/15/2024 by Alfonso Jay MD at OR [facility] [place] N/A: Aorta [employer] 04/19/2027 [facility] / / [id number] Description:attached to vein graft Marker Coronary - [id number] Implanted:Qty: 1 on 05/15/2024 by Alfonso Jay MD at OR [facility] [place] N/A: Aorta [employer] 03/20/2027 [facility] / / [id number] Description:attached to vein graft documented as of this encounter Advance Directives * Full Code (Latest Code Status on File) Date Activated Date Inactivated Comments 05/15/2024 12:25 PM 05/20/2024 5:18 PM This order reflects the patients wishes and were consensually agreed upon. Question Answer Comments Discussion of Advance Directives occurred with: Patient * Full Code Date Activated Date Inactivated Comments 05/13/2024 2:12 PM 05/15/2024 12:24 PM This order reflects the patients wishes and were consensually agreed upon. Question Answer Comments Discussion of Advance Direct juan pablo occurred with: Not Discussed due to patient's condition * Full Code Date Activated Date Inactivated Comments 10/02/2021 11:06 AM 10/02/2021 4:56 PM This orde r reflects the patients wishes and were consensually agreed upon. * Full Code Date Activated Date Inactivated Comments 10/02/2021 10:03 AM 10/02/2021 11:06 AM This ord er reflects the patients wishes and were consensually agreed upon. Care Teams General Ophthalmologist Relationship Specialty Start Date End Date Jasmina Taylor MD [address] [place] [address] [place] [address] PCP - General Family Medicine 05/07/24 documented as of this encounter
--- OUTSIDE RECORDS SUMMARY | 2024-06-06 15:44 | External Medical Summary | Summary of Care ---
Author Name Unknown Organization [facility] Address [address] [place] [address] Phone [phone] Care Team Providers Care Road Grader Operator Name Role Phone Jasmina Taylor MD Primary Care Provide r Encounter Details Date Type Department Care Team (Late st Contact Info) Description 05/28/2024 Telephone Cardiothoracic Surg [facility], [place] [address] [place], [place] [phone] Noé Luciano PA-C [address] [place] [address] Allergies Active Allergy Reactions Criticality Noted Date Comments Baclofen 04/26/2022 Vertigo/extreme dizziness Codeine 02/18/2013 "deathly sick" Levofloxacin Nausea/vomiting 08/12/2018 Sulfa Antibiotics 08/25/2001 Rash documented as of this encounter (statuses as of 05/28/2024) Medications Medication Sig Dispensed Refills Start Date End Date Status Coenzyme Q10 10 MG Capsule Take 2 Capsules by mouth in the morning. 02/12/2019 Active Multiple Vitamins-Minerals (MULTIVITAMIN ADULTS) TABS Take 1 Tab by mouth daily. Active aspirin enteric coated 81 MG TBEC Take 1 Tablet by mouth in the morning. 05/24/2020 Active Hydrocortisone 2.5 % External CreamIndications:He morrhoids, [...] 05/20/2024 Active Atenolol 25 MG Oral Tablet (Tenormin)Indicatio ns:HTN, goal below [...] for Pain, Moderate. 10 Tablet 05/20/2024 Active Levalbuterol Tartrate 45 MCG/ACT Inhalation Aerosol (Xopenex HFA)Indications:Mil d intermittent asthma without complication Inhale 2 Puffs by mouth every 4 hours as needed for Wheezing. 15 g 5 05/25/2024 Active Doxycycline Hyclate 100 MG Oral Capsule Take 1 Capsule by mouth in the morning and 1 Capsule before bedtime. Do all this for 10 days. Until gone.. 20 Capsule 05/25/2024 06/04/2024 Active documented as of this encounter (statuses as of 05/28/2024) Active Problems Problem Noted Date Diagnosed Date Pulmonary hypertension 05/25/2024 S/P CABG x 3 05/25/2024 Postoperative atrial fibrillation 05/25/2024 Hypertensive urgency 05/14/2024 Coronary artery disease 05/13/2024 Multiple vessel coronary artery disease 05/13/20 Primary osteoarthritis of right knee 03/13/2024 Hiatal [...] as of this encounter (statuses as of 05/28/2024) Resolved Problems Problem Noted Date Diagnosed Date [...] as of this encounter (statuses as of 05/28/2024) Immunizations Name Administration Dates Next Due COVID-19 mRNA, LNP-s, No Pre serve, 2-Dose Series (hybris) 08/22/2021,12/14/2020,11/23/2020 COVID-19, LNP-s, No Preserve , Clive-sucrose, Ages 12+ (hybris) 02/13/2022 COVID-19, MRNA-LNP, 23-24, P F, 30 MCG/0.3 mL, 12 YRS AND ABOVE, IM ([facility]) 08/23/2023 Covid-19, Mrna, Lnp-s, Pf, B ivalent, 30 Mcg, IM, 12 yrs and above (hybris) 07/24/2022 Pneumococcal Conjugate Vacc, 13 Valent (Prevnar) [...] encounter Miscellaneous Notes * Telephone Encounter - Noé Luciano PA-C - 05/28/2024 2:23 PM EDT Mild erythema about EVH site,not infected per HHN Also inquired about lasix dosing-no changes made documented in this encounter Plan of Treatment Upcoming Encounters Date Type Department Care Team (Late st Contact Info) Description 05/29/2024 3:30 PM EDT Telemedicine Cardiothoracic Surg [facility], [place] [address] [place] [address] Noé Luciano PA-C [address] [place] [address] 06/17/2024 9:00 AM EDT Nurse Only Ancillary [address] [place] [address] [place], Nurse [address] [place] [address] 06/24/2024 1:00 PM EDT Office Visit Cardiothoracic Surg [facility] [address] [place] [address] Alfonso Jay MD [address] [place] [address] 07/02/2024 9:30 AM EDT Office Visit Cardiology [address] [place] [address] Sarah Antoine PA-C [address] [place] [address] 08/25/2024 1:40 PM EST Office Visit Family Medicine [address] [place] [phone] Jasmina Taylor MD [address] [place] [address] [place] [address] 10/05/2024 2:00 PM EST Office Visit Gastroenterology, [facility] [address] [place] [address] Martha Porter CRNP [address] [place] [address] Scheduled Procedures Name Priority Associated Diagnoses Date/Ti [...] this encounter Medical Devices Implanted Type Area Auditing Manager Device Identifier Shelf Expiration Date Model / Serial / Lot Suture Steel 6 B&S19 M654g - [id number] Implanted:Qty: 7 on 05/15/2024 by Alfonso Jay MD at OR [facility] [place] N/A: Sternum JNJ : [employer] 08/20/2028 M654G / / TMMAST Marker Coronary - [id number] Implanted:Qty: 1 on 05/15/2024 by Alfonso Jay MD at OR [facility] [place] N/A: Aorta [employer] 04/19/2027 [facility] / / [id number] Description:attached to vein graft Marker Coronary - [id number] Implanted:Qty: 1 on 05/15/2024 by Alofnso Jay MD at OR [facility] [place] N/A: Aorta [employer] 03/20/2027 [facility] / / [id number] Description:attached to vein graft documented as of [...] and were consensually agreed upon. Care Teams Road Grader Operator Relationship Specialty Start Date End Date Jasmina Taylor MD [address] [place] [address] [place] [address] PCP - General Family Medicine 05/07/24 documented as of this encounter
--- OUTSIDE RECORDS SUMMARY | 2024-06-06 15:44 | External Medical Summary | Summary of Care ---
Author Name Unknown Organization [facility] Address [address] [place] [address] Phone [phone] Care Team Providers Care Sociology Faculty Member Name Role Phone Jasmina Taylor MD Primary Care Provide r Reason for Visit * Reason Onset Date Comments Encounter Created in Error 05/21/2024 Encounter Details Date Type Department Care Team (Late st Contact Info) Description 05/21/2024 Telephone Care Coordination and Integration [address], [place] [phone] Morena Haider [facility] Hydrology Professor [address] [place], [place] [phone] Encounter Created in Error Allergies Active Allergy Reactions Criticality Noted Date Comments Baclofen 04/26/2022 Vertigo/extreme dizziness Codeine 02/18/2013 "deathly sick" Levofloxacin Nausea/vomiting 08/12/2018 Sulfa Antibiotics 08/25/2001 Rash documented as of this encounter (statuses as of 06/02/2024) Medications Medication Sig Dispensed Refills Start Date [...] as of this encounter (statuses as of 06/02/2024) Active Problems Problem Noted Date Diagnosed Date [...] as of this encounter (statuses as of 06/02/2024) Resolved Problems Problem Noted Date Diagnosed Date [...] as of this encounter (statuses as of 06/02/2024) Immunizations Name Administration Dates Next Due COVID-19 mRNA, LNP-s, No Pre serve, 2-Dose Series ([employer]) 08/22/2021,12/14/2020,11/23/2020 COVID-19, LNP-s, No Preserve , Clive-sucrose, Ages 12+ ([employer]) 02/13/2022 COVID-19, MRNA-LNP, 23-24, P F, 30 MCG/0.3 mL, 12 YRS AND ABOVE, IM ([facility]) 08/23/2023 Covid-19, Mrna, Lnp-s, Pf, B ivalent, 30 Mcg, IM, 12 yrs and above ([employer]) 07/24/2022 Pneumococcal Conjugate Vacc, 13 Valent (Prevnar) [...] No 05/13/2024 documented as of this encounter Plan of Treatment Upcoming Encounters Date Type Department Care Team (Late st Contact Info) Description 06/17/2024 9:00 AM EDT Nurse Only Ancillary [address] [place] [address] [place], Nurse [address] [place] [address] 06/24/2024 1:00 PM EDT Office Visit Cardiothoracic Surg [facility] [address] [place] [address] Alfonso Jay MD [address] [place] [address] 07/02/2024 9:30 AM EDT Office Visit Cardiology [address] [place] [address] Sarah Antoine PA-C [address] [place] [address] 08/25/2024 1:40 PM EST Office Visit Family [address] [place] [phone] Jasmina Taylor MD [address] [place] [address] [place] [address] 10/05/2024 2:00 PM EST Office Visit Gastroenterology, [facility] [address] [place] [address] Martha Porter CRNP [address] [place] [address] Scheduled Procedures Name Priority Associated Diagnoses Date/Ti [...] history exists Albumin/Creatinine Ratio 12/11/2024 12/11/2021, 12/2018 DXA Scan 02/27/2025 02/27/2022, 02/18, 01/21/2019, Additional [...] this encounter Medical Devices Implanted Type Area Customer Success Director Device Identifier Shelf Expiration Date Model / Serial / Lot Suture Steel 6 B&S19 M654g - [id number] Implanted:Qty: 7 on 05/15/2024 by Alfonso Jay MD at [place] [facility] [place] N/A: Sternum JNJ : [employer] 08/20/2028 M654G / / TMMAST Marker Coronary - [id number] Implanted:Qty: 1 on 05/15/2024 by Alfonso Jay MD at OR [facility] [place] N/A: Aorta [employer] 04/19/2027 [facility] / / [id number] Description:attached to vein graft Marker Coronary - [id number] Implanted:Qty: 1 on 05/15/2024 by Alfonso Jay MD at OR [facility] [place] N/A: Aorta [employer] 03/20/2027 [facility] / / [id number] Description:attached to vein graft documented as of [...] and were consensually agreed upon. Care Teams Sociology Faculty Member Relationship Specialty Start Date End Date Jasmina Taylor MD [address] [place] [address] [place] [address] PCP - General Family Medicine 05/07/24 documented as of this encounter
--- OUTSIDE RECORDS SUMMARY | 2024-06-06 15:44 | External Medical Summary | Summary of Care ---
Author Name Unknown Organization [facility] Address [address] [place] [address] Phone [phone] Care Team Providers Care Build And Deployment Engineer Name Role Phone Jasmina Taylor MD Primary Care Provide r Reason for Visit * Reason Onset Date Comments Triage Advice 05/21/2024 Encounter Details Date Type Department Care Team (Late st Contact Info) Description 05/21/2024 Tobacco Cloth Reclaimer Telephone Care Coordination and Integration [address] [place] [address] Faby Kraus LPN [address], [place] [id number] Triage Advice Allergies Active Allergy Reactions Criticality [...] mRNA, LNP-s, No Pre serve, 2-Dose Series ([employer]) 08/22/2021,12/14/2020,11/23/2020 COVID-19, LNP-s, No Preserve , Clive-sucrose, Ages 12+ (Pfizer) 02/13/2022 COVID-19, MRNA-LNP, 23-24, P F, 30 MCG/0.3 mL, 12 YRS AND ABOVE, IM ([employer]) 08/23/2023 Covid-19, Mrna, Lnp-s, Pf, B ivalent, 30 Mcg, IM, 12 yrs and above ([employer]) 07/24/2022 Pneumococcal Conjugate Vacc, 13 Valent (Prevnar) [...] No 05/13/2024 Are you (or your family) krotney eless or worried that you might be [...] 05/29/2024 3:30 PM EDT Telemedicine Cardiothoracic Surg [facility], [place] [address] [place] [address] Noé Luciano PA-C [address] [place] [address] 06/17/2024 9:00 AM EDT Nurse Only Ancillary [address] [place] [address] [place], Nurse [address] [place] [address] 06/24/2024 1:00 PM EDT Office Visit Cardiothoracic Surg [place] [address] [place] [address] Alfonso Jay MD [address] [place] [address] 07/02/2024 9:30 AM EDT Office Visit Cardiology [address] [place] [address] Sarah Antoine PA-C [address] [place] [address] 08/25/2024 1:40 PM EST Office Visit Family Medicine [address] [place] [phone] Jasmina Taylor MD [address] [place] [address] [place] [address] 10/05/2024 2:00 PM EST Office Visit Gastroenterology, [facility] [address] [place] [address] Martha Porter CRNP [address] [place] [address] Scheduled Procedures Name Priority Associated Diagnoses Date/Ti [...] this encounter Medical Devices Implanted Type Area Health Safety Specialist Device Identifier Shelf Expiration Date Model / Serial / Lot Suture Steel 6 B&S19 M654g - [id number] Implanted:Qty: 7 on 05/15/2024 by Alfonso Jay MD [place] [facility] [place]A: Sternum JNJ : [employer] 08/20/2028 M654G / / TMMAST Marker Coronary - [id number] Implanted:Qty: 1 on 05/15/2024 by Alfonso Jay MD [place] [facility] [place] N/A: Aorta [employer] 04/19/2027 [facility] / / [id number] Description:attached to vein graft Marker Coronary - [id number] Implanted:Qty: 1 on 05/15/2024 by Alfonso Jay MD at [place] [facility] [place] N/A: Aorta [employer] 03/20/2027 [facility] / / [id number] Description:attached to vein graft documented as of [...] and were consensually agreed upon. Care Teams Build And Deployment Engineer Relationship Specialty Start Date End Date Jasmina Taylor MD [address] [place] [address] [place] [address] PCP - General Family Medicine 05/07/24 documented as of this encounter
--- OUTSIDE RECORDS SUMMARY | 2024-06-06 15:44 | External Medical Summary | Summary of Care ---
Author Name Unknown Organization [facility] Address [address] [place] [address] Phone [phone] Care Team Providers Care Crayon Grader Name Role Phone Jasmina Taylor MD Primary Care Provide r Reason for Visit * Reason Onset Date Comments Home Health 05/21/2024 Encounter Details Date Type Department Care Team (Late st Contact Info) Description 05/21/2024 Telephone Family Medicine [address] [phone] Jasmina Taylor MD [address] [place] [address] [place] [address] Home Health Allergies Active Allergy Reactions Criticality Noted Date [...] syndrome) 05/14/2024 05/25/2024 Multinodular goiter 08/13/2023 08/14/20 Nephrolithiasis 03/14/2021 08/13/2023 [...] mRNA, LNP-s, No Pre serve, 2-Dose Series ([employer]) 08/22/2021,12/14/2020,11/23/2020 COVID-19, LNP-s, No Preserve , Clive-sucrose, Ages 12+ ([employer]) 02/13/2022 COVID-19, MRNA-LNP, 23-24, P F, 30 MCG/0.3 mL, 12 YRS AND ABOVE, IM ([facility]) 08/23/2023 Covid-19, Mrna, Lnp-s, Pf, B ivalent, 30 Mcg, IM, 12 yrs and above ([employer]) 07/24/2022 Pneumococcal Conjugate Vacc, 13 Valent (Prevnar) [...] encounter Miscellaneous Notes * Telephone Encounter - Clare Hummel RN - 05/28/2024 2:06 PM EDT Cardiology spoke with pt in another encounter * Telephone Encounter - Amee Davenport LPN - 05/26/2024 4:44 PM EDT Attempted to call patient, there was no answer, left voicemail. When patient returns call, ok for ADRIANA to relay message, please refer to below documentation. If needed, can transfer to dedicated nurse line. * Telephone Encounter - Jasmina Taylor MD - 05/21/2024 2:16 PM EDT I wouldn't change the Lasix unless directed by cardiology/CT surgery as she has pleural effusions on her chest x-ray. Would recommend compression stockings, staying well hydrated, and rising slowly when standing. * Telephone Encounter - Tamica Lou LPN - 05/21/2024 12:03 PM EDT Admission/Start of Care Admission/Start of Care: Zoila RN, Calling from: Duane Paige Patient was Admitted to: [facility] , for: CAD from 05/13 to 05/20 Referral ordered by: [facility] Referral received for: Nursing Home, PT, and OT Planned start of care date:Yes, Date 05/21 Start of care completed on: YES Report/Concerns of:BP Symptoms: dizziness Vitals: T 97.9 P 80, regular RR 20 BP left arm sitting 142/50 standing 100/78 let her stand there for a little and it was still 100/78 SP O2 93% RA Weight 172.5lbs Narrative: Zoila stated that patients, BP dropped significantly New on Lasix, potassium and decreased atenolol. Zoila wondering if the Lasix is the problem as it is 40 mg twice daily. Slight dizziness when standing but no other symptoms. No edema present. Zoila will reach out to Cardiology to address BP issue and ask if medications needs to be adjusted. They will call with any updates or additional concerns from the upcoming HH visit. Last Office Visit: 03/13/2024 Has patient been scheduled or seen in the office for a follow up visit: Yes- on05/25 Advised that orders will be signed by Jasmina Taylor MD and to fax to the office for signature. documented in this encounter Plan of Treatment Upcoming Encounters Date Type Department Care Team (Late st Contact Info) Description 05/29/2024 3:30 PM EDT Telemedicine Cardiothoracic Surg [facility] [address] [place] [address] Noé Luciano PA-C [address] [place] [address] 06/17/2024 9:00 AM EDT Nurse Only Ancillary [address] [place] [address] [place], Nurse [address] [place] [address] 06/24/2024 1:00 PM EDT Office Visit Cardiothoracic Surg [facility] [address] [place] [address] Alfonso Jay MD [address] [place] [address] 07/02/2024 9:30 AM EDT Office Visit Cardiology [address] [place] [address] Sarah Antoine, ADEOLA [address] [address] 08/25/2024 1:40 PM EST Office Visit Family Medicine [address] [place] [phone] Jasmina Taylor MD [address] [place] [address] [place] [address] 10/05/2024 2:00 PM EST Office Visit Gastroenterology, [facility] [address] [place] [address] Martha Porter CRNP [address] [place] [address] Scheduled Procedures Name Priority Associated Diagnoses Date/Ti [...] this encounter Medical Devices Implanted Type Area Order Dispatcher Device Identifier Shelf Expiration Date Model / Serial / Lot Suture Steel 6 B&S19 M654g - [id number] Implanted:Qty: 7 on 05/15/2024 by Alfonso Jay [place] [facility] [place] Sternum YOGESH : [employer] 08/20/2028 M654G / / TMMAST Marker Coronary - [id number] Implanted:Qty: 1 on 05/15/2024 by Alfonso Jay [place] [facility] [place]: Aorta [employer] 04/19/2027 [facility] / / [id number] Description:attached to vein graft Marker Coronary - [id number] Implanted:Qty: 1 on 05/15/2024 by Alfonso Jay MD [place] [facility] [place]: Aorta [employer] 03/20/2027 [facility] / / [id number] Description:attached to vein graft documented as of [...] and were consensually agreed upon. Care Teams Crayon Grader Relationship Specialty Start Date End Date Jasmina Taylor MD [address] [place] [address] [place] [address] PCP - General Family Medicine 05/07/24 documented as of this encounter
--- OUTSIDE RECORDS SUMMARY | 2024-06-06 15:44 | External Medical Summary | Summary of Care ---
Author Name Unknown Organization [facility] Address [address] [place] [address] Phone [phone] Care Team Providers Care Contract Sheltered Workshop Supervisor Name Role Phone Jasmina Taylor MD Primary Care Provide r Reason for Visit * Reason Onset Date Comments Update 06/01/2024 Encounter Details Date Type Department Care Team (Late st Contact Info) Description 06/01/2024 Telephone Cardiothoracic Surg [facility] [address] [place], [place] [phone] Noé Luciano PA-C [address] [place] [address] Update Allergies Active Allergy Reactions Criticality Noted Date Comments Baclofen 04/26/2022 Vertigo/extreme dizziness Codeine 02/18/2013 "deathly sick" Levofloxacin Nausea/vomiting 08/12/2018 Sulfa Antibiotics 08/25/2001 Rash documented as of this encounter (statuses as of 06/01/2024) Medications Medication Sig Dispensed Refills Start Date [...] as of this encounter (statuses as of 06/01/2024) Active Problems Problem Noted Date Diagnosed Date [...] as of this encounter (statuses as of 06/01/2024) Resolved Problems Problem Noted Date Diagnosed Date [...] as of this encounter (statuses as of 06/01/2024) Immunizations Name Administration Dates Next Due COVID-19 mRNA, LNP-s, No Pre serve, 2-Dose Series ([employer]) 08/22/2021,12/14/2020,11/23/2020 COVID-19, LNP-s, No Preserve , Clive-sucrose, Ages 12+ (Pfizer) 02/13/2022 COVID-19, MRNA-LNP, 23-24, P F, 30 MCG/0.3 mL, 12 YRS AND ABOVE, IM ([facility]) 08/23/2023 Covid-19, Mrna, Lnp-s, Pf, B ivalent, 30 Mcg, IM, 12 yrs and above ([employer]) 07/24/2022 Pneumococcal Conjugate Vacc, 13 Valent (Prevnar) [...] encounter Miscellaneous Notes * Telephone Encounter - Ifeoma Ballesteros PA-C - 06/01/2024 1:59 PM EDT Patient complains of intermittent left-sided chest numbness. She denies any chest pain, SOB/FAIR, orincision concerns. I informed her that numbness is common on the left side of the chest due to HERNANDEZ harvest and shouldimprove with time. She verbalizes understanding and has no other concerns at this time. She will follow-up with Dr. Jay as scheduled on 06/24/24. Ifeoma Ballesteros PA-C 06/01/2024 2:00 PM * Telephone Encounter - Aria Newberry OSA - 06/01/2024 1:23 PM EDT Person calling: Valerie Relationship to patient: [facility] Number to return call: [phone] Reason for call (please describe): advice [facility] team, Valerie, home health nurse is calling to let you know that Amairani is having intermittent left chest heaviness and numbness which is the first time she has noted these symptoms since seeing at the house. No SOB or arm pain. Using cream for her neck pain which is not new. Please call pt at the above number to discuss. Aria documented in this encounter Plan of Treatment Upcoming Encounters Date Type Department Care Team (Late st Contact Info) Description 06/17/2024 9:00 AM EDT Nurse Only Ancillary [address] [place] [address] [place], Nurse [address] [place] [address] 06/24/2024 1:00 PM EDT Office Visit Cardiothoracic Surg [facility] [address] [place] [address] Alfonso Jay MD [address] [place] [address] 07/02/2024 9:30 AM EDT Office Visit Cardiology [address] [place] [address] Sarah Antoine PA-C [address] [place] [address] 08/25/2024 1:40 PM EST Office Visit Family Medicine [address] [place] [phone] Jasmina Taylor MD [address] [place] [address] [place] [address] 10/05/2024 2:00 PM EST Office Visit Gastroenterology, [facility] [address] [place] [address] Martha Porter CRNP [address] [place] [address] Scheduled Procedures Name Priority Associated Diagnoses Date/Ti [...] this encounter Medical Devices Implanted Type Area Hot Kettle Tender Device Identifier Shelf Expiration Date Model / Serial / Lot Suture Steel 6 B&S19 M654g - [id number] Implanted:Qty: 7 on 05/15/2024 by Alfonso Jay MD at OR [facility] [place] N/A: Sternum JNJ : [employer] 08/20/2028 M654G / / TMMAST Marker Coronary - [id number] Implanted:Qty: 1 on 05/15/2024 by Alfonso Jay MD at OR [facility] [place] N/A: Aorta [employer] 04/19/2027 [facility] / / [id number] Description:attached to vein graft Marker Coronary - [id number] Implanted:Qty: 1 on 05/15/2024 by Alfonso Jay MD at OR [facility] [place] N/A: Aorta [employer] 03/20/2027 [facility] / / [id number] Description:attached to vein graft documented as of [...] and were consensually agreed upon. Care Teams Contract Sheltered Workshop Supervisor Relationship Specialty Start Date End Date Jasmina Taylor MD [address] [place] [address] [place] [address] PCP - General Family Medicine 05/07/24 documented as of this encounter
--- OUTSIDE RECORDS SUMMARY | 2024-06-06 15:44 | External Medical Summary | Summary of Care ---
Author Name Unknown Organization [facility] Address [address] [place] [facility] [place] [address] Phone [phone] Care Team Providers Care Rivet Driver Name Role Phone Jasmina Taylor MD Primary Care Provide r Encounter Details Date Type Department Care Team (Late st Contact Info) Description 05/25/2024 Orders Only Family Medicine [address] [place] [phone] Jasmina Taylor MD [address] [place] [address] [place] [address] Allergies Active Allergy Reactions Criticality Noted Date Comments Baclofen 04/26/2022 Vertigo/extreme dizziness Codeine 02/18/2013 "deathly sick" Levofloxacin Nausea/vomiting 08/12/2018 Sulfa Antibiotics 08/25/2001 Rash documented as of this encounter (statuses as of 05/25/2024) Medications Medication Sig Dispensed Refills Start Date [...] as of this encounter (statuses as of 05/25/2024) Active Problems Problem Noted Date Diagnosed Date [...] as of this encounter (statuses as of 05/25/2024) Resolved Problems Problem Noted Date Diagnosed Date [...] as of this encounter (statuses as of 05/25/2024) Immunizations Name Administration Dates Next Due COVID-19 mRNA, LNP-s, No Pre serve, 2-Dose Series ([employer]) 08/22/2021,12/14/2020,11/23/2020 COVID-19, LNP-s, No Preserve , Clive-sucrose, Ages 12+ (Pfizer) 02/13/2022 COVID-19, MRNA-LNP, 23-24, P F, 30 MCG/0.3 mL, 12 YRS AND ABOVE, IM ([employer]) 08/23/2023 Covid-19, Mrna, Lnp-s, Pf, B ivalent, 30 Mcg, IM, 12 yrs and above ([employer]) 07/24/2022 Pneumococcal Conjugate Vacc, 13 Valent (Prevnar) [...] 05/29/2024 3:30 PM EDT Telemedicine Cardiothoracic Surg [facility] [place] [address] [place] [address] Noé Luciano PA-C [address] [place] [address] 06/17/2024 9:00 AM EDT Nurse Only Ancillary [address] [place] [address] Nurse [place] [facility] [address] [place] [address] [place] [address] 06/24/2024 1:00 PM EDT Office Visit Cardiothoracic Surg [facility] [address] [place] [address] Alfonso Jay MD [address] [place] [address] 07/02/2024 9:30 AM EDT Office Visit Cardiology [address] [place] [address] Sarah Antoine PA-C [address] [place] [address] 08/25/2024 1:40 PM EST Office Visit Family Medicine [address] [place] [phone] Jasmina Taylor MD [address] [place] [address] [place] [address] 10/05/2024 2:00 PM EST Office Visit Gastroenterology, [facility] [address] [place] [address] Martha Porter CRNP [address] [place] [address] Scheduled Procedures Name Priority Associated Diagnoses Date/Ti me COLONOSCOPY FLEXIBLE PROXIMA L DIAGNOSTIC Recall Encounter for screening colonoscopy Health Maintenance Due Date Last Done Comments Sigmoidoscopy 1996 DTaP,Tdap,and Td Vaccines (2 - Td or Tdap) 07/14/2018 07/14/2008 Fecal Occult Blood Test 09/16/2020 09/16/2019, 12/05 Cologuard 01/27/2021 01/27/2018 Adult Wellness Visit 06/12/2024 06/12/2023 Depression Screening 06/12/2024 06/12/2023 Influenza Vaccine (FLU shot) (#1) 2024 07/06/2023, 07/07/2022, 06/29/2021, Additional history exists Mammogram 11/13/2024 11/13/2023, 10/21, 11/06/2022, Additional history exists Albumin/Creatinine Ratio 12/11/2024 12/11/2021, 12/12/2018 DXA Scan 02/27/2025 02/27/2022, 02/18, 01/21/2019, Additional [...] this encounter Medical Devices Implanted Type Area Fast Food Crew Member Device Identifier Shelf Expiration Date Model / Serial / Lot Suture Steel 6 B&S19 M654g - [id number] Implanted:Qty: 7 on 05/15/2024 by Alfonso Jay MD at OR [facility] [place] N/A: Sternum JNJ : [employer] 08/20/2028 M654G / / TMMAST Marker Coronary - [id number] Implanted:Qty: 1 on 05/15/2024 by Alfonso Jay MD at [place] [facility] [place] N/A: Aorta [employer] 04/19/2027 [facility] / / [id number] Description:attached to vein graft Marker Coronary - [id number] Implanted:Qty: 1 on 05/15/2024 by Alfonso Jay MD at OR [facility] [place] N/A: Aorta [employer] 03/20/2027 [facility] / / [id number] Description:attached to vein graft documented as of [...] and were consensually agreed upon. Care Teams Rivet Driver Relationship Specialty Start Date End Date Jasmina Taylor MD [address] [place] [address] [place] [address] PCP - General Family Medicine 05/07/24 documented as of this encounter
--- OUTSIDE RECORDS SUMMARY | 2024-06-06 15:44 | External Medical Summary | Summary of Care ---
Author Name Unknown Organization [facility] Address [address] [place] [address] Phone [phone] Care Team Providers Care Power Chisel Operator Name Role Phone Jasmina Taylor MD Primary Care Provide r Encounter Details Date Type Department Care Team (Late st Contact Info) Description 05/29/2024 3:30 PM EDT Telemedicine Cardiothoracic Surg [facility] [address], [place] [id number] Noé Luciano PA-C [address], [place] [id number] S/P CABG x 3* Allergies Active Allergy Reactions Criticality Noted Date Comments Baclofen 04/26/2022 Vertigo/extreme dizziness Codeine 02/18/2013 "deathly sick" Levofloxacin Nausea/vomiting 08/12/2018 Sulfa Antibiotics 08/25/2001 Rash documented as of this encounter (statuses as of 05/29/2024) Medications Medication Sig Dispensed Refills Start Date [...] as of this encounter (statuses as of 05/29/2024) Active Problems Problem Noted Date Diagnosed Date [...] as of this encounter (statuses as of 05/29/2024) Resolved Problems Problem Noted Date Diagnosed Date [...] as of this encounter (statuses as of 05/29/2024) Immunizations Name Administration Dates Next Due COVID-19 mRNA, LNP-s, No Pre serve, 2-Dose Series ([employer]) 08/22/2021,12/14/2020,11/23/2020 COVID-19, LNP-s, No Preserve , Clive-sucrose, Ages 12+ (Pfizer) 02/13/2022 COVID-19, MRNA-LNP, 23-24, P F, 30 MCG/0.3 mL, 12 YRS AND ABOVE, IM ([employer]) 08/23/2023 Covid-19, Mrna, Lnp-s, Pf, B ivalent, 30 Mcg, IM, 12 yrs and above ([employer]) 07/24/2022 Pneumococcal Conjugate Vacc, 13 Valent [...] No 05/13/2024 documented as of this encounter Progress Notes * Noé Luciano PA-C - 05/29/2024 3:30 PM EDT Post-Op Visit 05/29/2024 Pre charting done by Noé Luciano PA-C in efficiency of seeing patient and updated by Noé Luciano PA-C After connecting to the patient via telephone, the patient was identified by name and date of . Patient was then informed that this was a telephone call only visit. The patient agreed to participate. Visit Disposition: Routine follow-up Total call duration was 10 minutes. Amairani Khan is a 73 year old female s/p Amiodarone x 1 month for post-op atrial fibrillation (no coumadin as she was NSR for several days),Lasix and potassium x 1 month(BID lasix for [address] Jay), and Pepcid x 1 month. She was stable for discharge to home on 05/20/2024. Operations & Procedures: CABG X 3 HERNANDEZ to LAD SVG to OM, PDA Complications: acute post op blood loss anemia atrial fibrillation . Discharge date: 05/20/2024 Discharge destination: home EF: 55% PCP visit date: Y, no changesprescribed doxycycline for atelectasis Cardiology visit date: P ED/Admission visit: No Social History Tobacco Use Smoking status: Never Smokeless tobacco: Never Vaping Use Vaping status: Never Used Substance Use Topics Alcohol use: No Drug use: No Social History Substance and Sexual Activity Drug Use No Doing stairs,walking outside walking Minimal use of tramadol,tylenol mostly Admits to persistent cough/mild PCP started doxy and inhalers Xray 8/ reviewed -small left effusion and atelectasis Cardiac Symptoms: no angina and using IS device and inhaler Physical Exam: Edema: no edema present Incisions: healing well and denied drainage Current Outpatient Medications Medication Sig Dispense Refill Coenzyme Q10 10 MG Capsule Take 2 Capsules by mouth in the morning. Multiple Vitamins-Minerals (MULTIVITAMIN ADULTS) TABS Take 1 Tab by mouth daily. aspirin enteric coated 81 MG TBEC Take 1 Tablet by mouth in the morning. Hydrocortisone 2.5 % External Cream Apply topically to affected area 2 times a day. 28 g 0 Pantoprazole Sodium 40 MG Oral Tablet Delayed Release (Protonix) Take 1 Tablet by mouth in the morning. 30 minutes before the first meal of the day. Do not crush, split or chew the tablet. 90 Tablet 3 Pravastatin Sodium 40 MG Oral Tablet (Pravachol) Take 1 Tablet by mouth daily with dinner 100 Tablet 1 Mirtazapine 15 MG Oral Tablet (Remeron) Take 1 Tablet by mouth at bedtime. 90 Tablet 0 Amiodarone HCl 200 MG Oral Tablet (Cordarone) Take 1 Tablet by mouth daily with breakfast. Until gone, do not renew 30 Tablet 0 Atenolol 25 MG Oral Tablet (Tenormin) Take 1 Tablet by mouth in the morning. 30 Tablet 1 Furosemide 40 MG Oral Tablet (Lasix) Take 1 Tablet by mouth in the morning and 1 Tablet in the evening. For 1 week, then decrease to 1 tab daily until gone. Do not start before May 21, 2024. 35 Tablet 0 Potassium Chloride ER 10 MEQ Oral Tablet Extended Release Take 2 Tablets by mouth in the morning. Take with lasix until gone. 60 Tablet 0 traMADol HCl 50 MG Oral Tablet (Ultram) Take 0.5 Tablets by mouth every 6 hours as needed for Pain,Moderate. 10 Tablet 0 No current facility-administered medications for this visit. Assessment/Plan: Doing well Stressed importance of pulmonary work,walking etc Medications reviewed Lifting restrictions and sternal precautions reviewed. Enforce restrictions for full eight weeks from hospital discharge date RTC Follow up with scheduled appointment Noé Luciano PA-C 05/29/2024 [address] [id number] documented in this encounter Plan of Treatment Upcoming Encounters Date Type Department Care Team (Late st Contact Info) Description 06/17/2024 9:00 AM EDT Nurse Only Ancillary [address] [place] [id number] [place], Nurse [address] [place] [address] 06/24/2024 1:00 PM EDT Office Visit Cardiothoracic Surg [address] [address] Alfonso Jay MD [facility] [place] [address] 07/02/2024 9:30 AM EDT Office Visit Cardiology [address] [place] [phone] Sarah Antoine PA-C [address] [place] [phone] 08/25/2024 1:40 PM EST Office Visit Family [address] [place] [phone] Jasmina Taylor MD [address] [place] [address] [place] [phone] 10/05/2024 2:00 PM EST Office Visit Gastroenterology, [facility] [address] [place] [address] Martha Porter CRNP [address] [place] [id number] Scheduled Procedures Name Priority Associated Diagnoses Date/Ti [...] this encounter Medical Devices Implanted Type Area Betting Clerks Device Identifier Shelf Expiration Date Model / Serial / Lot Suture Steel 6 B&S19 [id number] - [id number] Implanted:Qty: 7 on 05/15/2024 by Alfonso Jay MD at [place] [facility] [place]/A: Sternum JNJ : [employer] 08/20/2028 [id number] / / [id number] Marker Coronary - [id number] Implanted:Qty: 1 on 05/15/2024 by Alfonso Jay MD at [place] [facility] [place] N/A: Aorta [employer] 04/19/2027 [facility] / / [id number] Description:attached to vein graft Marker Coronary - [id number] Implanted:Qty: 1 on 05/15/2024 by Alfonso Jay MD at [place] [facility] [place] N/A: Aorta [employer] 03/20/2027 [facility] / / [id number] Description:attached to vein graft documented as of this encounter Visit Diagnoses Diagnosis S/P CABG x 3- Primary Postsurgical aortocoronary bypass status documented in this encounter Advance Directives * [...] 10/02/2021 11:06 AM 10/02/2021 4:56 PM This ord er reflects the patients wishes and were consensually agreed upon. * Full Code Date Activated Date Inactivated Comments 10/02/2021 10:03 AM 10/02/2021 11:06 AM This ord er reflects the patients wishes and were consensually agreed upon. Care Teams Power Chisel Operator Relationship Specialty Start Date End Date Jasmina Taylor MD [address] [place] [address] [place] [id number] PCP - General Family Medicine 05/07/24 documented as of this encounter
--- OUTSIDE RECORDS SUMMARY | 2024-06-06 15:44 | External Medical Summary | Summary of Care ---
Author Name Unknown Organization [facility] Address [address] [place] [address] Phone [phone] Care Team Providers Care Police Officer Booking Name Role Phone Jasmina Taylor MD Primary Care Provide r Reason for Visit * Reason Onset Date Comments Hospital Follow-Up Has had cough since Surgery, non productive, asking if Miralax is ok to take Hospital Follow-Up 05/25/2024 Encounter Details Date Type Department Care Team (Late st Contact Info) Description 05/25/2024 12:20 PM EDT Office Visit Family Medicine [address] [phone] Jasmina Taylor MD [address] [place] [address] [place] [address] Hospital discharge follow-up*; S/P CABG x 3; 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 15 g 5 05/25/2024 Active documented as of this encounter (statuses [...] mRNA, LNP-s, No Pre serve, 2-Dose Series ([employer] 08/22/2021,12/14/2020,11/23/2020 COVID-19, LNP-s, No Preserve , Clive-sucrose, Ages 12+ (Pfizer) 02/13/2022 COVID-19, MRNA-LNP, 23-24, P F, 30 MCG/0.3 mL, 12 YRS AND ABOVE, IM (PFIZER-Comirnaty) 08/23/2023 Covid-19, Mrna, Lnp-s, Pf, B ivalent, 30 Mcg, IM, 12 yrs and above ([employer] 07/24/2022 Pneumococcal Conjugate Vacc, 13 Valent (Prevnar) [...] No 06/12/2023 Does the household have a [facility] source of income? (Household - for ages [...] Sign Reading Time Taken Comments Blood Pressure 102/72 05/25/2024 12:25 PM EDT Pulse 66 05/25/2024 12:25 PM EDT Temperature 36.5 C (97.7 F) 05/25/2024 12:25 PM E DT Respiratory Rate 16 05/25/2024 12:25 PM EDT Oxygen Saturation - - Inhaled Oxygen Concentration - - Weight 83 kg (183 lb) 05/25/2024 12:25 PM EDT Height 165.1 cm (5' 5") 05/25/2024 12:25 PM EDT Body Mass Index 30.45 05/25/2024 12:25 PM EDT documented in this encounter Functional Status Functional Status Response [...] No 05/13/2024 documented as of this encounter Patient Instructions * Patient Instructions* Jasmina Taylor MD - 05/25/2024 12:34 PM EDT Taking Medicine Safely Medicine is given to help treat or prevent illness. But if you don't take it correctly, it might not help. It might even harm you. Your doctor or pharmacist can help you learn the right way to take your medicine. Listed below are some tips to help you take medicine safely. Safety Tips Have a routine for taking each medicine. Make it part of something you do each day, such as brushing your teeth or eating a meal. When you go to the hospital or your doctor's office, bring all your current medicines in their original boxes or bottles. If you can't do that, bring an up-to-date list of your medicines. Do not stop taking a prescription medicine unless your doctor tells you to. Doing so could make your condition worse. Do not share medicines. Let your doctor and pharmacist know of any allergies you have. Taking prescription medicines with alcohol, street drugs, herbs, supplements, or even some rces-rjl-fcqhute medicines can be harmful. Talk to your doctor or pharmacist before using any of these things while taking a prescription medicine. When filling your prescriptions, try using the same pharmacy for all your medicines. If not, let the pharmacist know what medicines you are already on. Keep medicines out of the reach of children and pets. Do not use medicine that has or that doesn't look or smell right. Get rid of it properly. To find out the right way to get rid of medicine: Call your [facility] or pending sale to [facility] government's household trash and recycling service and ask if a drug take-back program is available in your community. Call your local pharmacy and ask the right way to get rid of the medicine. Go to http://www.fda.gov/ForConsumers/ConsumerUpdates/auk544019 to learn how to get rid of medicines safely. Using Generic Medicines Medicines have brand names and generic (chemical) names. When a medicine is first made, it is sold only under its brand name. Later, it can be made and sold as a generic. Generic medicines cost less than brand-name medicines and most work just as well. Most people can use the generic medicine instead of the brand-name medicine, unless their doctor says otherwise. [employer] [facility], [address] [place] [address]. All rights reserved. This information is not intended as a substitute for professional medical care. Always follow your healthcare professional's instructions. Coping with Your Diagnosis of a Chronic Health Condition If you have a chronic health condition, you have a problem that may not go away over time. Heart disease, asthma, arthritis, and diabetes are just a few of the chronic conditions that exist. Right now, these conditions have no known cure. But you can take an active role in managing your health. Coping with Your Diagnosis If you've just learned about your health condition, you may be angry, depressed, or afraid. Or you might feel relieved just to know what's wrong. Even if you've known about your health problem for a while, adjusting to it can be hard. But learning about your condition can help you cope. Look for books at your local library. If you have access to a computer, check the Internet. Or contact a group that focuses on your specific problem. Accepting Change Change is hard for most people. Yet right now you may be facing many changes. What you eat or the way you work may change. Your moods, and even your symptoms, might vary from day to day. Although it isn't easy, learning to accept change can help you feel more in control. Taking Control Feeling you have control can make living with your condition easier. Discuss treatment options withyour health care provider. The more you know, the more active you can be in your care. Moving Forward You may wonder whether you will be able to do the things you've always done. That depends on your age, the condition you have, and your goals. To make the most of each day, try to build caring relationships, be active, and eat right. Also, do your best to keep a sense of humor. [facility], [address] [place] [address], [place] [address]. All rights reserved. This information is not intended as a substitute for professional medical care. Always follow your healthcare professional's instructions. Taking an Active Role in Your Medicines Take the time to learn about your medicine. For instance, why are you taking it? What does it do? Work with your doctor or other health care providers to get the answers you need. Talk to your pharmacist about how to take each medicine, and ask for a fact sheet on each one. Ask Questions About Your Medicine What is the name of the medicine? Why do I need to take it? When should I take it? How should I take it: with water? with food? on an empty stomach? How much do I take? What do I do if I miss a dose? What side effects could it cause and which ones should I call the doctor about? Are there any foods or medicines I should avoid while taking this medicine? Keeping track of your medications? Name of medicine: Taken for: Dose: Time(s) to take it: Take an Active Role Fill all your prescriptions at the same pharmacy. This keeps your medicine history in one place. Talk to the pharmacist. Make sure you understand how to take each medicine. Ask for a fact sheet about each one. Tell your doctor and pharmacist about all the prescription and jtcl-hzn-ejlvovs medicines you take.This includes vitamins and herbal remedies. Tell your doctor and pharmacist if you have any medical conditions or allergies to any medicine or food, or if you are or . Keep a list of all your medicines. Use the sample to the right as a guide for the type of information needed. [address] [address]. All rights reserved. This information is not intended as a substitute for professional medical care. Always follow your healthcare professional's instructions. documented in this encounter Progress Notes * Jasmina Taylor MD - 05/25/2024 12:31 PM EDT SUBJECTIVE: Amairani Khan is a 73 year old female. Chief Complaint Patient presents with Hospital Follow-Up Has had cough since Surgery, non productive, asking if Miralax is ok to take Hospital Follow-Up Recent Admission: Patient was recently admitted to [facility] on 05/13/24. The date of discharge was 05/20/24. Discharge report received and reviewed. HPI: Brief Clinical History Ms. Khan is a 73 year old female last seen in [facility] on 03/30/2024 by Fercho Nichols She has a h/o the following chronic conditions indicated on the problem list: Chronic Conditions None Was admitted to [facility] 05/13/24-05/20/24 for CABG x 3. Was originally admitted to [facility] on with left sided chest pain, headaches, and elevated blood pressure on 05/11/24. Her troponin was negative in the ED. She underwent cardiac cath, which shoed multivessel disease with 95% of LAD, 80% of RCA, and 50% proximal OM. She was then transferred to [facility] for further evaluation. She was seen by CT surgery and underwent triple vessel CABG on 05/15/[address] Jay. She had some postoperative delirium that cleared. She also developed postoperative atrial fibrillation. She was started on amiodarone and to continue for 1 month. She did convert back to sinus rhythm. She was discharged on Lasix 40 mg twice daily x 7 days and then to reduce to once daily for 1 month for pleural effusions. Lisinopril was discontinued. Her atenolol was reduced to 25 mg daily. Has had a dry cough since she was in the hospital. Blowing some clear mucus from her nose. Had numerous CXRs while admitted showing some pleural effusions. Was discharged on Lasix 40 mg twice a day but was cut down to once a day. Is also taking the potassium once a day. Is short of breath when getting in and out of bed. Has had some wheezing. Has asthma but has not used anything for a long time. No swelling in her legs. No fever or chills. Has home health coming in. Does not feel she needs therapy. Getting around using a walker today. Patient Active Problem List Diagnosis ADVANCE DIRECTIVE [...] Primary osteoarthritis of right knee Hiatal hernia Coronary artery disease Hypertensive urgency Multiple vessel coronary artery disease Pulmonary hypertension (HCC) S/P CABG x 3 Postoperative atrial fibrillation (HCC) Current Outpatient Medications Medication Sig Dispense Refill [...] before May 21, 2024. 35 Tablet 0 traMADol HCl 50 MG Oral Tablet (Ultram) Take 0.5 Tablets by mouth every 6 hours as needed for Pain,Moderate. 10 Tablet 0 Levalbuterol Tartrate 45 MCG/ACT Inhalation Aerosol (Xopenex HFA) Inhale 2 Puffs by mouth every 4 hours as needed for Wheezing. 15 g 5 Potassium Chloride ER 10 MEQ Oral Tablet Extended Release Take 2 Tablets by mouth in the morning. Take with lasix until gone. 60 Tablet 0 No current facility-administered medications for this visit. Current and discharge medications have been reconciled. Review of patient's allergies indicates: Allergen Reactions Baclofen Vertigo/extreme dizziness Codeine "deathly sick" Levaquin [Levofloxacin] Nausea/vomiting Sulfa Antibiotics Rash OBJECTIVE: BP 102/72 | Pulse 66 | Temp 36.5 C (97.7 F) | Resp 16 | Ht 1.651 m (5' 5") | Wt 83 kg (183 lb) | BMI 30.45 kg/m | BSA 1.95 m Review Of Systems: Skin: pt denies, new or changing moles, pigmentation change, rash, scaling, itching, bruising, lumps or bumps, hair changes, nail changes Eyes: negative Ears/Nose/Throat: pt denies:, deafness, tinnitus, vertigo Respiratory: +as per HPI Cardiovascular: +as per HPI Gastrointestinal: pt. denies:, abdominal pain, bloating or excess gas, dysphagia, nausea, heartburn, blood in stool or black stools, + constipation, diarrhea Genitourinary: pt denies:, nocturia, dysuria, and frequency Musculoskeletal: pt denies significant joint pain or stiffness Neurologic: pt denies:, headaches, syncope, and seizures Psychiatric: pt denies:, sleep disturbance, anxiety, nervousness, and depression Hematologic/Lymphatic/Immunologic: pt denies:, recurrent infections, immunodeficiency, bruising, bleeding disorder, fever, night sweats, chills, and weight loss Endocrine: pt denies:, thyroid disorder, cold intolerance, heat intolerance, and diabetes PHYSICAL EXAM: General: alert, no distress, well nourished, and well developed Head: Normocephalic, No masses, lesions, tenderness or abnormalities Eye Exam: PERRLA, extraocular movements intact, conjunctiva are pink and non- injected, sclera clear Ears: External ears normal, Canals clear, TM's Normal Nose: no mucosal erythema, no mucosal edema, no purulent discharge Oropharynx: no exudate, no erythema, lips, buccal mucosa, and tongue normal, and mucous membranes are moist Neck: supple, no adenopathy, no bruits Heart: regular rate & rhythm, no murmur, and no gallops Chest: +healing sternal incision without erythema, drainage, or separation Lungs: chest symmetric with normal AP diameter, no chest deformities noted, no chest wall tenderness, lungs clear to auscultation Extremities: no edema, no clubbing, no cyanosis, +healing scabs from vein harvesting of left inner thigh and distal inner calf Neuro Exam: alert & oriented x 3 with fluent speech, no focal motor/sensory deficits, gait normal ASSESSMENT: Hospital discharge follow-up (Primary) - DISCH MED RECON CUR MED LIS S/P CABG x 3--healing well. Follow-up with cardiothoracic surgery as scheduled. 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 Postoperative atrial fibrillation (HCC)--converted to sinus spontaneously. To be on amiodarone x [address] surgery. Follow-up with video appointment 05/29 and in person 06/24/24. Acute cough--could be related to asthma, pleural effusions, or asthma. Check x- ray today. - XR CHEST 2 VIEWS Pulmonary hypertension (HCC)--stable. Follow-up with cardiology. HTN, goal below 140/90--controlled and BP running low. Lisinopril already discontinued and atenolollowered to 25 mg daily. Her Lasix was also reduced to once daily. Dyslipidemia, goal LDL below 100--continue pravastatin 40 mg daily. Mild intermittent asthma without complication--could be causing cough. Start Xopenex to avoid tachycardia given her recent CABG and postoperative atrial fibrillation. - Levalbuterol Tartrate 45 MCG/ACT Inhalation Aerosol (Xopenex HFA); Inhale 2 Puffs by mouth every 4 hours as needed for Wheezing. Follow Up: Return as scheduled. PLAN: Continue present medication(s): Study(ies) ordered: Chest x-ray due to ongoing cough, which started prior to discharge per patient. Patient education: Discussed continue Lasix as per CT surgery. Had pleural effusions postoperatively that could be causing the cough. Could also be related to asthma. Start Xopenex as above. May needto treat pneumonia if present. Follow up as scheduled. I spent a total of 40-54 minutes (exact time 42 mins) minutes on the date of service in preparation, delivery, and documentation of the care provided to Amairani Khan excluding any time spent in performance of separately billed services. Jasmina Taylor MD documented in this encounter Nursing Notes * Shannan Ash LPN - 05/25/2024 12:25 PM EDT The patient has been properly identified by confirmation of name and date of . Chief Complaint Patient presents with Hospital Follow-Up Has had cough since Surgery, non productive, asking if Miralax is ok to take documented in this encounter Plan of Treatment Upcoming Encounters Date Type Department Care Team (Late st Contact Info) Description 05/29/2024 3:30 PM EDT Telemedicine Cardiothoracic Surg [facility] [address] [place] [address] Noé Luciano PA-C [address] [place] [address] 06/17/2024 9:00 AM EDT Nurse Only Ancillary [address] [place] [address] [place], [address] [place] [address] 06/24/2024 1:00 PM EDT Office Visit Cardiothoracic Surg [facility] [place] [address] [place] [address] Alfonso Jay MD [facility] [place] [address] 07/02/2024 9:30 AM EDT Office Visit Cardiology [address] [place] [address] Sarah Antoine PA-C [address] [place] [address] 08/25/2024 1:40 PM EST Office Visit Family Medicine [address] [place] [phone] Jasmina Taylor MD [address] [place] [address] [place] [address] 10/05/2024 2:00 PM EST Office Visit Gastroenterology, [facility] [address] [place] [address] Martha Porter CRNP [address] [place] [id number] Pending Results Name Type Priority Associated Diagnoses Date /Time XR CHEST 2 VIEWS Medical Imaging Routine Acute cough 05/25/2024 1:07 PM EDT Scheduled Procedures Name Priority Associated [...] this encounter Medical Devices Implanted Type Area Physicist Nuclear Device Identifier Shelf Expiration Date Model / Serial / Lot Suture Steel 6 B&S19 [id number] - [id number] Implanted:Qty: 7 on 05/15/2024 by Alfonso Jay MD at OR [facility] N/A: Sternum [place] : [employer] 08/20/2028 [id number] / / [id number] Marker Coronary - [id number] Implanted:Qty: 1 on 05/15/2024 by Alfonso Jay MD at OR [facility] N/A: Aorta [employer] 04/19/2027 [facility] / / [id number] Description:attached to vein graft Marker Coronary - [id number] Implanted:Qty: 1 on 05/15/2024 by Alfonso Jay MD at OR [facility] N/A: Aorta [employer] 03/20/2027 [facility] / / [id number] Description:attached to vein graft documented as of this encounter Visit Diagnoses Diagnosis Hospital discharge follow-up- Primary Other follow-up examination S/P CABG x 3 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) Postoperative atrial fibrillation (HCC) Cardiac complications Acute cough Pulmonary hypertension (HCC) Other chronic pulmonary heart diseases HTN, goal below 140/90 Unspecified essential hypertension Dyslipidemia, goal LDL below 100 Other and unspecified hyperlipidemia Mild intermittent asthma without complication Unspecified asthma documented in this encounter Advance Directives * [...] Answer Comments Discussion of Advance Direct juan palbo occurred with: Not Discussed due to patient's condition * Full Code Date Activated Date Inactivated Comments 10/02/2021 11:06 AM 10/02/2021 4:56 PM This orde r reflects the patients wishes and were consensually agreed upon. * Full Code Date Activated Date Inactivated Comments 10/02/2021 10:03 AM 10/02/2021 11:06 AM This ord er reflects the patients wishes and were consensually agreed upon. Care Teams Police Officer Booking Relationship Specialty Start Date End Date Jasmina Taylor MD [address] [place] [address] [place] [phone] PCP - General Family Medicine 05/07/24 documented as of this encounter
--- OUTSIDE RECORDS SUMMARY | 2024-06-06 15:45 | External Medical Summary | Summary of Care ---
Author Name Unknown Organization [facility] Address [address] [place] [address] Phone [phone] Care Team Providers Care Station Mechanic Helper Name Role Phone Dale Taylor MD Primary Care Provide r Reason for Referral * Evaluate & Treat - Unlimited Visits (Within 30 days (routine)) - Authorized Specialty Diagnoses / Procedures Referred By Sabiha kam Referred To Contact Dietitian / Nutrition Services Diagnoses S/P CABG x 3 Coronary artery disease involving [place] coronary artery of [place] heart with angina pectoris (HCC) Dyslipidemia, goal LDL below 100 HTN, goal below 140/90 Lina Bearden PA-C [address] [place] [address] Referral ID Status Reason Start Date Expiration Date Visits Requested Visits Authorized [id number] Authorized Specialty Services Required 05/18/2024 [id number] Question Answer Referral Priority Within 30 days (routine) Where should this appointment be scheduled? [facility] What condition is the patient being seen for? All other conditions Other: Manage HTN/ Decrease Lipids Is this for 65 Forward? No Comments Heart Surgery Discharge Order * Evaluate & Treat - Unlimited Visits (Within 30 days (routine)) - Authorized Specialty Diagnoses / Procedures Referred By Sabiha kam Referred To Contact CARDIAC REHAB / Cardiology Diagnoses S/P CABG x 3 ACS (acute coronary syndrome) (HCC) Gisel Escalera PA-C [address] [place] [address] Referral ID Status Reason Start Date Expiration Date Visits Requested Visits Authorized [id number] Authorized Specialty Services Required 05/15/2024 [id number] Question Answer Referral Priority Within 30 days (routine) Where should this appointment be scheduled? [facility] Comments Discharge Order Reason for Visit * Auth/Cert Specialty Diagnoses / Procedures Referred By Sabiha t Referred To Contact Diagnoses chest pain Carly Nolasco MD [address] [place] [address] Admissions [facility] [address] [place] [address] Referral ID Status Reason Start Date Expiration Date Visits Re quested Visits Authorized [id number] Encounter Details Date Type Department Care Team (Latest Contact Info) Description 05/13/2024 1:59 PM EDT - 05/20/2024 1:13 PM EDT Hospital Encounter CICU, Cardiac Intensive Care Unit [facility] 7TH Floor [address] [place] [address] Carly Nolasco MD [address] [place] [address] Facundo Gee MD [facility] [place] [address] Alfonso Jay MD [address] [place] [address] EKG Report Discharge Disposition: Home - Self Care Allergies Active Allergy Reactions Criticality Noted Date Comments Baclofen 04/26/2022 Vertigo/extreme dizziness Codeine 02/18/2013 "deathly sick" Levofloxacin Nausea/vomiting 08/12/2018 Sulfa Antibiotics 08/25/2001 Rash documented as of this encounter (statuses as of 05/21/2024) Medications Medication Sig Dispensed Refills Start Date End Date Status Coenzyme Q10 10 MG Capsule Take 2 Capsules by mouth in the morning. 02/12/2019 Active Multiple Vitamins-Mineral s (MULTIVITAMIN ADULTS) TABS Take 1 Tab by mouth daily. Active aspirin enteric coated 81 MG TBEC Take 1 Tablet by mouth in the morning. 05/24/2020 Active Hydrocortisone 2.5 % External CreamIndications :Hemorrhoids, unspecified hemorrhoid type Apply topically to affected area 2 times a day. 28 g 01/14/2023 Active Pantoprazole Sodium 40 MG Oral Tablet Delayed Release (Protonix)Indica tions:Gastroesop hageal reflux disease without esophagitis Take 1 Tablet [...] 05/20/2024 Active Atenolol 25 MG Oral Tablet (Tenormin)Indica tions:HTN, goal below 140/90 Take 1 Tablet by [...] for Pain, Moderate. 10 Tablet 05/20/2024 Active fluticasone (FLONASE) 50 MCG/ACT nasal spray Administer 2 Sprays into each nostril in the morning. 1 Inhaler 5 01/13/2018 4 Discontinued Culturelle Pro-Well Oral Capsule Take 2 Caps by mouth daily. 4 Discontinued Benefiber Oral Powder Take by mouth every evening. Takes 2 tsp daily with supper 4 Discontinued Polyethylene Glycol 3350 17 GM Oral Packet Take 1 Packet by mouth in the morning. 4 Discontinued Dicyclomine HCl 10 MG Oral Capsule (Bentyl) Take 1 Capsule by mouth 2 times a day as needed for Cramping. 180 Capsule 2 10/28/2023 4 Discontinued Triamcinolone Acetonide 0.1 % External Cream (Aristocort) Apply topically to affected area 2 times a day. Apply to affected areas 45 g 1 03/30/2024 4 Discontinued Lisinopril 20 MG Oral Tablet (Prinivil)Indica tions:HTN, goal below 140/90 Take 1 Tablet by mouth in the morning. 30 Tablet 11 05/08/2024 4 Discontinued Atenolol 50 MG Oral Tablet (Tenormin)Indica tions:HTN, goal below 140/90 Take 1 Tablet by mouth in the morning. 90 Tablet 3 05/11/2024 4 Discontinued documented as of this encounter (statuses as of 05/21/2024) Active Problems Problem Noted Date Diagnosed Date ACS (acute coronary syndrome) 05/14/2024 Hypertensive urgency 05/14/2024 Coronary artery disease 05/13/2024 [...] as of this encounter (statuses as of 05/21/2024) Resolved Problems Problem Noted Date Diagnosed Date [...] as of this encounter (statuses as of 05/21/2024) Immunizations Name Administration Dates Next Due COVID-19 mRNA, LNP-s, No Pre serve, 2-Dose Series ([email or web address]) 08/22/2021,12/14/2020,11/23/2020 COVID-19, LNP-s, No Preserve , Clive-sucrose, [...] Sign Reading Time Taken Comments Blood Pressure 120/82 05/20/2024 8:00 AM EDT Pulse 68 05/20/2024 4:00 AM EDT Temperature 35.9 C (96.6 F) 05/20/2024 8:00 AM ED T Respiratory Rate 16 05/20/2024 8:00 AM EDT Oxygen Saturation 92% 05/20/2024 8:00 AM EDT Inhaled Oxygen Concentration - - Weight 88.6 kg (195 lb 5.2 oz) 05/20/2024 6:00 A M EDT Height 165.1 cm (5' 5") 05/13/2024 2:10 PM EDT Body Mass Index 32.5 05/13/2024 2:10 PM EDT documented in this encounter Functional [...] No 05/13/2024 documented as of this encounter Discharge Instructions * Discharge Instr - AVS* Selena Hopper CRNP - 05/18/2024 9:40 AM EDT Discharge Date: 05/20/2024 You may call of the department of Cardiothoracic Surgery at [phone] during business hours for any questions or test results. After hours emergencies: Call [phone] and have theCardiothoracic Surgery service paged. The information below provides you with the instructions and the list of medications you need to betaking following discharge from the hospital. If you have any questions, please ask before leaving.Please carry this letter with you when you see your doctor in the clinic. If you have questions, you can reach us at the numbers above. Brief summary of your inpatient care: You presented to the hospital and underwent CABG x [address] Jay. You did have an irregular, but commonly occurring heart rhythm called atrial fibrillation that was treated with medication. You also had a low blood count that is common after surgery. Your doctors during this hospitalization included: Your primary diagnosis at discharge was S/P CABG x 3. Inpatient test results pending: None Operations & Procedures: CABG X 3 HERNANDEZ to LAD SVG to OM, PDA Complications: acute post op blood loss anemia atrial fibrillation Advance Directive Documented: Advance Directive Does the Patient have an Advance Directive? No Diet: Heart healthy diet Activity: No strenuous activity for 6 weeks and No lifting or pushing or pulling more than 10 lbs for 6 weeks Driving: Do not drive for one month until we clear you at return clinic Date you may return to work or school: Based on further instruction reviewed by surgeon after follow up visit. Most people are off for 8-12 weeks. See your primary care physician (Dale Taylor MD) in 2 weeks Follow-up with: Follow-up with cardiac surgery PA in 1 week, cardiac surgeon in 1 month, cardiology in 4-6 weeks, and your primary care doctor in 2 weeks. These appointments have been requested for you. Routine wound/surgical site care: Soap and water, open to air. If skin glue present, some will peeloff on its own- you may peel it off completely in 1 week. Continue to wash over it daily. Remove any Band-Aids or dressing and CHANGE daily if needed. Watch for signs of infections: including increased redness, swelling, drainage, opening of either your sternal incision or leg incision, fever or chills. If this occurs call the office number above immediately and a surgeon or PA will see you immediately. Wear your CARLOS stockings or FLORECITA wraps during the day and remove at night. This helps to prevent tension on your incisions and prevents swelling. Weigh Yourself daily: You should SHOWER daily. Use soap and water on your incisions. DO NOT take tub baths. Medications: Prescriptions that are given without refills are only required for 30 days. Other Special Instructions: Home: No special instructions needed. You will receive a call from the Cardiac Rehab to schedule your Consultation. If not arranged by the time of your post-op follow-up visit, please let your surgical team know and this can be arranged. If you feel suicidal or homicidal, please call the crisis hotline at [phone] ([phone]). documented in this encounter Progress Notes * Facundo Gee MD - 05/14/2024 5:20 AM EDT PROGRESS NOTE - Cardiology [facility] [address] Name: Amairani Khan Location: [facility] H869/A Date: 05/14/2024 Time: 7:24 AM SUBJECTIVE: Overnight: No acute events overnight. This morning, patient seen and examined at bedside. Reports fair sleep. Denies any chest pain, pressure, shortness of breath dizziness. Discussion was held with patient and patient's family regardingpotential catheterization for stent placement and surgical option of CABG. After discussion and time she spent alone with her family, patient reports that she would prefer the surgical option at thistime. OBJECTIVE: Most Recent Vital Signs: BP: 135 mmHg/82 mmHg (05/14/24199) Pulse: 63 (05/14/24199) Resp: 16 (05/14/24199) Temp: 36.33 C (05/14/24199) Temp Summary: Temp Min: 36.3 C (97.4 F) Max: 36.8 C (98.2 F) SpO2: 97 % (05/14/24199) O2 flow rate: Supplemental O2 Delivery: Room Air, None (05/14/24199) Telemetry: Notable for some PVC's. Vital Signs Last 24 Hours: Systolic BP: Most Recent Systolic BP Av.8 mmHg Min: 129 mmHg Max: 140 mmHg Temperature: Most Recent Temperature Av.6 C Min: 36.33 C Max: 36.78 C Pulse: Pulse Av.3 Min: 63 Max: 67 Respirations: Resp Av Min: 16 Max: 16 SpO2: SpO2 Av % Min: 97 % Max: 99 % PHYSICAL EXAM General: No acute distress, lying comfortably in bed HEENT: neck is supple, sclera white, nares patent, ears non deformed Cardiovascular: RRR, S1 and S2 present, no murmurs or gallops, no lower extremity edema Respiratory: No acute respiratory distress, Clear to auscultation bilaterally, no wheezes, rhonchi,or rales Abdomen: Soft, non-tender, non-distended, no rigidity Musculoskeletal: No joint deformity, appears to have normal tone Neuro: no focal deficits, moves all extremities equally and spontaneously Skin: No obvious rashes or skin lesions Psych: mood normal, thought process intact LABS: Labs reviewed as indicated below: Lab results within last 7 days (see chart for full results) Units 05/14/24 0550 05/13/24 1431 Sodium mmol/L 141 140 Potassium mmol/L 4.1 4.0 Chloride mmol/L 111* 111* CO2 mmol/L 19* 18* BUN mg/dL 18 18 Creatinine mg/dL 0.9 1.0 Latest Reference Range & Units 05/14/24 05:50 Glucose 70 - 120 mg/dL 101 Calcium 8.4 - 10.2 mg/dL 9.0 Lab results within last 7 days (see chart for full results) Units 05/14/24 0550 05/13/24 1853 05/13/24 1654 HGB g/dL 13.8 14.3 14.5 HCT % 42.2 42.4 43.1 WBC K/uL 6.49 6.79 6.41 PLT K/uL 133* 159 167 Latest Reference Range & Units 05/14/24 05:50 Triglycerides <=174 mg/dL 86 Cholesterol <200 mg/dL 175 Non-HDL Cholesterol <=159 mg/dL 115 HDL Cholesterol >49 mg/dL 60 LDL Cholesterol <=129 mg/dL 98 Latest Reference Range & Units 05/14/24 05:50 Hemoglobin A1C 4.0 - 5.6 % 5.6 Latest Reference Range & Units 05/14/24 05:51 05/14/24 12:27 INR 0.8 - 1.2 1.0 Prothrombin Time 11.6 - 15.2 seconds 13.0 Heparin, Unfractionated <0.10 IU/mL 0.68 (H) 0.45 (H) (H): Data is abnormally high IMAGING: TTE 05/14/24: The examination is limited quality but adequate for evaluation of the referral indication. The qualitative LV ejection fraction is 55-59% (normal). There is a small sized anterior wall motion abnormality with hypokinesis of the segments. The right ventricular systolic function is qualitatively normal. Mild aortic valve regurgitation is present. Myocardial Perfusion study 05/12/24: Conclusion: 1.Abnormal Lexiscan nuclear myocardial perfusion imaging study demonstrating a small giacomo of apical infarction with moderate lotus-infarct ischemia involving the apical anterior wall, apical septum, and apex. 2. Ischemia involves 14% of the total myocardium per quantitative analysis 3. Abnormal gated S PECT imaging with apical septal hypokinesis, otherwise normal wall motion 4. Calculated LVEF > 70% Cardiac Cathterization 05/13/24: Summary of findings: 95% proximal LAD 80% mid RCA 50% proximal OM2 IMPRESSION and PLAN: Principal Problem: Coronary artery disease (POA: Unknown) Active Problems: Gastroesophageal reflux disease without esophagitis (POA: Yes) HTN, goal below 140/90 (POA: Yes) Dyslipidemia, goal LDL below 100 (POA: Yes) POA = Present On Admission Patient is a 73 y/o F with PMHx of HTN, HLD, and GERD who presented as transfer from [facility] after found to have multivessel disease on cardiac catheterization. Multivessel Disease 95% pLAD, 80% mRCA, 50% pOM1 Patient presented to [facility] ED with week long headache, elevated blood pressures, and left sided chest pressure. Troponins flat at 4.8 > 5.8. EKG negative for acute ischemia. Patient's myocardial perfusion scan demonstrated apical infarction. Patient was taken for cardiac catheterization on05/13, demonstrating midRCA 80% occlusion, proximal LAD 95%, 50% pOM1, and D1 ostial lesion of 100%.Patient transferred here for further management. TTE demonstrated small sized anterior wall motion abnormality with hypokinesis of the segments with EF 55-59%. After lengthy discussion with patient and family, patient would like to pursue surgical options for treatment. -Continue Heparin gtt -Aspirin 81mg QD -Atorvastatin 80mg QD -Lipid panel wnl -HbA1c wnl -EKG as needed for chest pain -Continuous telemetry -NPO at midnight for possible intervention -Consulted CVTS for possible CABG, appreciate rec's: -Surgeon to see - Pre-op orders placed Chronic Problems: HLD: continue Atorvastatin as above HTN: Continue FOOD AND DRUG INSPECTOR Lisinopril 20mg QD and FOOD AND DRUG INSPECTOR Atenolol 50mg QD GERD: Continue FOOD AND DRUG INSPECTOR Protonix Misc: Diet: Heart Healthy Bowel Regimen: Not indicated at this time Sleep: None ordered Consultants following: CTVS VTE Prophylaxis: AC as above Code Status: FULL Lines/Drains/Airways: LINES ALL Duration Peripheral Line 1 day I saw and evaluated the patient today. I have reviewed the resident/fellow physician note and agree. Patient has presented to outside hospital with chest discomfort associated with periods of high blood pressure. Given the patient presentation and description patient was evaluated at [facility] and underwent heart catheterization. Patient was subsequently transferred to this Medical Center for further evaluation and management, essentially for coronary artery bypass surgery given hercoronary anatomy. This morning the patient has concerned about type of revascularization. She wishes to understand ifpercutaneous intervention is possible. Patient coronary anatomy has been reviewed and discussed with interventional cardiology. Patient has already been seen by cardiovascular surgery and she is deemed low risk for coronary artery bypass surgery. Given the patient coronary anatomy, she is not a suitable candidate for percutaneous intervention. It is very possible the result will not be satisfactory and with high chances of complications. The rationale behind this has been discussed with the patient and the family in great detail. Patient has a number of question and concern which have all been answered to her satisfaction. Following this the patient has decided to proceed with coronary artery bypass surgery. documented in this encounter H&P Notes * Gisel Escalera PA-C - 05/15/2024 6:32 AM EDT HISTORY & PHYSICAL INTERVAL NOTE [facility] [address] History and Physical Update: Name: Amairani Khan Location: [place] [facility] Date: 05/15/2024 Time: 6:33 AM DATE OF HISTORY AND PHYSICAL: 05/13/24 BP: 147 mmHg/88 mmHg (05/15/24599) Pulse: 64 (05/15/24599) Resp: 18 (05/15/24599) Temp: 36.61 C (05/15/24 0529) Temp Summary: Temp Min: 36.5 C (97.7 F) Max: 36.9 C (98.4 F) SpO2: 98 % (05/15/24599) O2 flow rate: Supplemental O2 Delivery: Room Air, None (05/15/24599) Does patient take a beta kelly? Yes this morning Did patient stop anticoagulants? None Heart Exam: regular rate and rhythm Lung Exam: clear to auscultation bilaterally Other Pertinent Physical Exam: none I have reviewed the H&P previously performed and examined the patient today. There are no new findings noted. * Forrest Chau MD - 05/13/2024 3:00 PM EDT GENERAL HISTORY AND PHYSICAL EXAMINATION - CARDIOLOGY [address] [address] Name: Amairani Khan Location: [facility] H869/A Date: 05/13/2024 Time: 4:58 PM Date of Admission: 05/13/2024 Presenting Problem: Multivessel disease HPI: Patient is a 73 year old female with PMHx significant for HTN, HLD, and GERD that presented from [facility] after being found to have multivessel disease necessitating multiple stent placement on 05/13. Patient reports that starting on Saturday of last week, she started to have a bad headache, rated 6/10, and pain on the sides of her neck. Patient took her blood pressure, and found it to be elevated at around 150/100. On Saturday, patient went to a clinic and they increased her home Lisinopril 10mg to 20mg daily. Patient remained taking this dose of 20mg without resolution of her high blood pressure. Her headache persisted throughout the week, although waned down to a 1/10 gradually. On , patient began to worry as she began to experience, as she described, a "twinge" in her left chest, described as a "mild heaviness", associated with numbness and tingling of her Left arm and right lower leg. Patient denies any associated shortness of breath, dizziness, vision changes, or weakness. At this point, patient decided to go to the emergency department in [place]. At [facility],patient states that this chest pressure lasted all day, but is unable to provide history as to whenexactly it stopped. Patient's headache also resolved while at [facility]. Patient describes no other feelings of this chest pressure except for one other time during election day last year. Per document review that arrived with patient, patient arrived hypertensive to [facility] with a blood pressure of 162/107, pulse in the 60s, and saturating 99% on RA. Troponins were found to be non-elevated at 4.8 > 5 > 5.8. CXR demonstrated no acute processes, and EKG was negative for acute ischemic changes. Patient was loaded with aspirin and started on Heparin. On 05/12, patient underwent myocardial perfusion scan which demonstrated small area of apical infarction with moderate lotus-infarct ischemia involving the apical anterior wall, apical septum, and apex, with ischemia [id number]% of the total myocardium. Calculated EF >70%. Patient was taken for cardiac catheterization an d found to have multivessel disease, with 95% proximal LAD occlusion, 80% mRCA occlusion, and 50% proximal OM2 occlusion. Patient was then transferred to [facility] for further management. On arrival, patient is resting comfortably in bed. Vitals stable, with BP at 135/96. Patient deniesheadache, chest pain, shortness of breath, dizziness, numbness, tingling or other complaints. Patient able to lay flat, and denies any contrast allergy. Patient wants to be FULL CODE at this time. Wants her to make decisions for her in the setting that she is not able to make decisions for herself. Lives with . At baseline ambulates with cane or walker when having knee pain. Reports no tobacco use. Reports no alcohol abuse or no illicit substance use. Subjective PAST MEDICAL HISTORY: Past Medical History: Diagnosis Date COPD, moderate (HCC) 01/26/2013 Diverticulitis GERD (gastroesophageal reflux disease) 01/26/2013 HTN, goal below 140/90 09/07/2009 Modified per HTN protocol #16. Hyperlipidemia LDL goal < 130 02/17/2009 Hypertension Kidney disease Nephrolithiasis OTHER DISEASE OF TRACHEA AND BRONCHUS 04/13/2010 Rhinitis, non-allergic 01/26/2013 Rhinitis, non-allergic 01/26/2013 acute Thyroid nodule PAST SURGICAL HISTORY: Past Surgical History: Procedure Laterality Date COLONOSCOPY 05/2006 Dr Ackerman COLONOSCOPY, DIAGNOSTIC (RECTUM) 08/20/2018 normal bx, diverticulosis, repeat 10 yrs/COLONOSCOPY FLEXIBLE PROXIMAL DIAGNOSTIC performed by Nneka Mayer MD at ENDOSCOPY [facility] COLONOSCOPY, DIAGNOSTIC (RECTUM) 03/15/2023 COLONOSCOPY FLEXIBLE PROXIMAL DIAGNOSTIC performed by Karlos Olivarez MD at ENDOSCOPY [facility] EGD, FLEXIBLE, DIAGNOSTIC 08/20/2018 mild inflammation/ESOPHAGOGASTRODUODENOSCOPY (EGD), FLEXIBLE, TRANSORAL, DIAGNOSTIC performed by Nneka Mayer MD at ENDOSCOPY [facility] EGD, FLEXIBLE, DIAGNOSTIC 08/19/2023 hiatal hernia/ESOPHAGOGASTRODUODENOSCOPY (EGD), FLEXIBLE, TRANSORAL, DIAGNOSTIC performed by Ector Mireles MD at ENDOSCOPY [facility] FRAGMENT KIDNEY STONE BY SHOCK WAVE Right 10/02/2021 RIGHT LITHOTRIPSY EXTRACORPOREAL SHOCK WAVE performed by Ankush Loya MD at OR [facility] MAMMOGRAM SCREENING BILATERAL 01/12/2010 scattered fibroglandular densities, category 1 normal MISCELLANEOUS ORDER 1994 bladder tacking MOBILE DXA 01/21/2019 Lumbar T -2-2, Femur T -1, fx risk 8.3%/0.7%, low risk, repeat 3 years PARTIAL HYSTERECTOMY 1994 Hysterectomy Partial RMV MALG LSN FACE/EARS .6-1CM 01/01/2012 Dr Swain FAMILY HISTORY: Patient reports that 6 out of her 7 siblings have had cardiac history, including stents and pacemakers. Family History Problem Relation Name Age of Onset Diabetes Mother Hypertension Mother hypothyroid Cancer Father thyroid, of brain aneurysm Gastro-intestinal disorder Mother Ulcerative Colitis Blood Disorder Sister Alysha Espinal hypo thyroid,hiatal hernia,Pemphigus, Pernicious anemia Heart Disorder Mother CAD, had [place] Diabetes Sister Nneka CHF,hypothyroid Diabetes Brother Florin Ball hypothyroid No Past Hx Brother doesn't go to doc No Past Hx Brother No Past Hx Brother SOCIAL HISTORY: Social History Tobacco Use Smoking status: Never Smokeless tobacco: Never Vaping Use Vaping status: Never Used Substance Use Topics Alcohol use: No Drug use: No PRIOR TO ADMISSION MEDS: Current Outpatient Medications Medication Instructions aspirin enteric coated 81 mg, Oral, Daily(AM) Atenolol (TENORMIN) 50 mg, Oral, Daily(AM) Benefiber Oral Powder [id number] Coenzyme Q10 20 mg, Oral, Daily(AM) Culturelle Pro-Well Oral Capsule 2 Capsules, Daily(AM) dicyclomine (BENTYL) 10 mg, Oral, BID PRN fluticasone (FLONASE) 50 MCG/ACT nasal spray 2 Sprays, Daily(AM) Hydrocortisone 2.5 % External Cream Apply topically to affected area 2 times a day. Lisinopril (PRINIVIL) 20 mg, Oral, Daily(AM) Mirtazapine (REMERON) 15 mg, Oral, HS Multiple Vitamins-Minerals (MULTIVITAMIN ADULTS) TABS 1 Tablet, Oral, Daily(AM) pantoprazole (PROTONIX) 40 mg, Oral, Daily(AM), 30 minutes before the first meal of the day. Do notcrush, split or chew the tablet Polyethylene Glycol 3350 17 GM Oral Packet 17 g, Daily(AM) Pravastatin Sodium 40 MG Oral Tablet (Pravachol) Take 1 Tablet by mouth daily with dinner Triamcinolone Acetonide 0.1 % External Cream (Aristocort) Topical, BID (.AM/PM), Apply to affected areas ALLERGIES: Baclofen, Codeine, Levaquin [levofloxacin], and Sulfa antibiotics Review of Systems: All systems were reviewed and documented in the HPI, otherwise negative. Objective CONSTITUTIONAL DATA / OBJECTIVE: Vital Signs (Most Recent): Blood Pressure: 135/96 mmHg Last 12H: Most Recent Systolic BP Av mmHg Min: 135 mmHg Max: 135 mmHg Pulse: 65 Last 12H: Pulse Av Min: 65 Max: 65 Temperature: 36.7 C (98.1 F) Last 12H: Most Recent Temperature Av.72 C Min: 36.72 C Max: 36.72 C Respiratory Rate: 16 O2 Saturation: 99 % Vital Signs (Last 24 Hours): Pulse Av Min: 65 Max: 65 No data recorded Most Recent Systolic BP Av mmHg Min: 135 mmHg Max: 135 mmHg Most Recent Diastolic BP Av mmHg Min: 96 mmHg Max: 96 mmHg Resp Av Min: 16 Max: 16 Most Recent Temperature Av.72 C Min: 36.72 C Max: 36.72 C SpO2 Av % Min: 99 % Max: 99 % Intake & Output Summary (Last 24 hours): No intake or output data in the 24 hours ending 05/13/24 3225 Height & Weight: Height: 165.1 cm (5' 5") (05/13/24 1410) Weight: 83.2 kg (183 lb 8 oz) (05/13/24 1536) Weight change: Body mass index is 30.54 kg/m. Physical Examination: General: Patient in no apparent distress. HEENT: normocephalic, atraumatic, pupils reactive to light bilaterally. Heart: regular rate and rhythm; S1 and S2 present; no murmurs, rubs or gallops. Pulmonary: Lungs clear to auscultation bilaterally; no wheezes, rhonchi or crackles. Abdomen: Soft, non-tender, non-distended. Normal bowel sounds and no rebound or guarding. MSK: Patient able to ambulate; Gross motor function intact. Extremities: Right radial access site without hematoma, bleeding. No bruits appreciated on auscultation. No pitting edema present at lower extremity bilaterally. Skin: [place], warm, no wounds or lesions present. Neuro: AAOx3. No gross motor or sensory deficits. Psych: Appropriate mood and affect. Peripheral Line (Active) Number of days: 1 Laboratory Values: reviewed. -- Brief labs below include the 7 most recent results over the past week. Blood Gas: No results in the last 7 days - inpatent use only Chemistry Panel: Lab results within last 7 days (see chart for full results) Units 05/13/24 1431 Sodium mmol/L 140 Potassium mmol/L 4.0 Chloride mmol/L 111* CO2 mmol/L 18* BUN mg/dL 18 Creatinine mg/dL 1.0 Estimated Glomerular Filtration Rate mL/min 59* Glucose mg/dL 112 Calcium mg/dL 8.8 Anion Gap mmol/L 11 Complete Blood Count: Lab results within last 7 days (see chart for full results) Units 05/13/24 1431 WBC K/uL 6.51 HGB g/dL 14.0 HCT % 42.1 PLT K/uL 162 MCV fL 90.3 Cardiac Studies: No results in the last 7 days - inpatent use only Coagulation Studies: No results in the last 7 days - inpatent use only Liver Function Panel: No results in the last 7 days - inpatent use only Infectious Studies: No results in the last 7 days - inpatent use only Cultures: reviewed. No results in the last 7 days - inpatent use only Recent Cultures (2 Weeks) No lab values to display. Radiographic Studies (last 72 hours): reviewed. No imaging results in the last 72 hours Cardiac Studies: Myocardial Perfusion study 05/12/24: Conclusion: 1.Abnormal Lexiscan nuclear myocardial perfusion imaging study demonstrating a small giacomo of apical infarction with moderate lotus-infarct ischemia involving the apical anterior wall, apical septum, and apex. 2. Ischemia involves 14% of the total myocardium per quantitative analysis 3. Abnormal gated S PECT imaging with apical septal hypokinesis, otherwise normal wall motion 4. Calculated LVEF > 70% Cardiac Cathterization 05/13/24: Summary of findings: 95% proximal LAD 80% mid RCA 50% proximal OM2 Assessment & Plan Assessment and Plan: Principal Problem: Coronary artery disease (POA: Unknown) Active Problems: Gastroesophageal reflux disease without esophagitis (POA: Yes) HTN, goal below 140/90 (POA: Yes) Dyslipidemia, goal LDL below 100 (POA: Yes) POA = Present On Admission Amairani Khan is a 73 year old female with PMHx significant for HTN, HLD, GERD who is admitted as a transfer from [facility] found to have multivessel disease on cardiac catheterization. Multivessel Disease 95% pLAD, 80% mRCA, 50% pOM1 Patient presented to [facility] ED with week long headache, elevated blood pressures, and left sided chest pressure. Troponins flat at 4.8 > 5.8. EKG negative for acute ischemia. Patient's myocardial perfusion scan demonstrated apical infarction. Patient was taken for cardiac catheterization on05/13, demonstrating midRCA 80% occlusion, proximal LAD 95%, 50% pOM1, and D1 ostial lesion of 100%.Patient transferred here for further management. -Continue Heparin -Aspirin 81mg QD -Atorvastatin 80mg QD -Lipid panel pending -HbA1c pending -EKG as needed for chest pain -Continuous telemetry -NPO at midnight for possible intervention -Consulted CVTS for possible CABG, appreciate rec's: Chronic Problems: HLD: continue Atorvastatin as above HTN: Continue [employer] INSPECTOR Lisinopril 20mg QD and [employer]OR Atenolol 50mg QD GERD: Continue FO[employer] INSPECTOR Protonix Misc: Diet: Heart Healthy Bowel Regimen: Not indicated at this time Sleep: No sleep protocol ordered VTE Prophylaxis: Full AC as above Code Status: FULL Anticipated Discharge: LINES / DRAINS / TUBES: LINES ALL Duration Peripheral Line 1 day List of services consulted/following: CARDIAC SURGERY CONSULT IP Patient discussed with [employer] Dr. Smiley and will be seen and examined by attending physician, MD Forrest Harris MD Resident Physician This chart was completed in part utilizing [employer] Speech Voice Recognition Software. Grammatical errors, random word insertions, pronoun errors, and incomplete sentences are an occasional consequence of this system due to software limitations, ambient noise, and hardware issues. Any formal questions or concerns about the content, text, or information contained within the body of this dictation should be directly addressed to the provider for clarification. Associated attestation - Carly Nolasco MD - 05/14/2024 8:50 AM EDT I saw and evaluated the patient 05/13/24. I have reviewed the resident/fellow physician note and agree. Pt is a 73 yo with newly diagnosed CAD but CAD risk factors of HTN,HLD, age, obesity who admitted to [facility] for what was felt to be a hypertensive urgency. Nulcear stresas test done which was readas smll apical infarct with periinfarcrt apical ischemia, Pt underwent diagnostic cath which showed severe two vessel disease and pt was transferred for complex PCI Pt does not carry diagnosis of diabetes. Hgb AIC 6.0 No signs of failure Soft systolic mumur Film reviewed by interventionalist who agreed lesions doable but given location of LAD wanted pt rosetta offered option of surgery Long discussion with pt about two good treatment options and risks/drawbacks of both She is willing to speak to the surgeon. Continue treatment for ACS while awaiting decisosn. documented in this encounter Procedure Notes * Kale Woodruff MD - 05/16/2024 5:22 AM EDTAssociated Order(s): EKG REASON FOR STUDY: ROUTINE CONCLUSIONS: Sinus rhythm with short PA with Premature supraventricular complexes Left axis deviation Incomplete right bundle branch block Inferior infarct , age undetermined Abnormal ECG When compared with ECG of 16-May-2024 00:32, (unconfirmed) PA interval has decreased Ventricular Rate: 83 Atrial Rate: 83 PA Interval: 96 QRS Duration: 94 QT/QTc: 402/472 ms P-R-T [place]: 0 : -38 : 8 degrees * Kale Woodruff MD - 05/16/2024 12:32 AM EDTAssociated Order(s): EKG REASON FOR STUDY: CHANGE IN RHYTHM CONCLUSIONS: Sinus rhythm with Premature atrial complexes Left axis deviation Incomplete right bundle branch block Abnormal ECG When compared with ECG of 15-May-2024 13:16, Premature atrial complexes are now Present Incomplete right bundle branch block has replaced Right bundle branch block Borderline criteria for Lateral infarct are no longer Present Ventricular Rate: 86 Atrial Rate: 86 PA Interval: 138 QRS Duration: 96 QT/QTc: 386/461 ms P-R-T [place]: 21 : -44 : 9 degrees * Doyle Beach MD - 05/15/2024 1:16 PM EDTAssociated Order(s): EKG REASON FOR STUDY: post op CONCLUSIONS: Normal sinus rhythm with sinus arrhythmia Right bundle branch block Left axis deviation When compared with ECG of 13-May-2024 14:51, Questionable change in initial forces of Anterior-lateral leads Ventricular Rate: 70 Atrial Rate: 70 PA Interval: 194 QRS Duration: 114 QT/QTc: 448/483 ms P-R-T [place]: -17 : -66 : 41 degrees * Kale Woodruff MD - 05/13/2024 2:51 PM EDTAssociated Order(s): EKG REASON FOR STUDY: chest pain CONCLUSIONS: Normal sinus rhythm Left axis deviation Moderate voltage criteria for LVH, may be normal variant ( R in aVL , Miles product ) Anterior infarct , age undetermined ST & T wave abnormality, consider lateral ischemia Abnormal ECG When compared with ECG of 13-Aug-2023 12:32, T wave inversion now evident in Inferior leads T wave inversion now evident in Anterior-lateral leads Ventricular Rate: 64 Atrial Rate: 64 PA Interval: 184 QRS Duration: 86 QT/QTc: 400/412 ms P-R-T [place]: 30 : -41 : -33 degrees documented in this encounter Consult Notes * Wale Connor RN - 05/18/2024 8:17 AM EDTAssociated Order(s): BLOOD MANAGEMENT CONSULT IP FOLLOW UP - Patient Blood Management [address] [id number] Name: Amairani Khan [place] [facility] H763/A Date: 05/18/2024 Time: 8:17 AM Follow up inpatient - Hgb less than 10, active bleeding, or bloodless Amairani Khan is a 73 year old female admitted on 05/13/2024 with POD#3 CABG. Identification of patient was done by: MRN BLOOD PRODUCTS IN THE LAST 24 HOURS: none LABS: Labs reviewed as indicated below: Latest Reference Range & Units 05/15/24 18:07 05/16/24 03:28 05/16/24 14:59 05/17/24 04:35 05/18/24 06:35 HGB 12.0 - 15.3 g/dL 9.0 (L) 8.2 (L) 7.9 (L) 7.7 (L) 8.3 (L) HCT 36.0 - 45.2 % 25.6 (L) 25.2 (L) 23.7 (L) 23.0 (L) 25.8 (L) (L): Data is abnormally low PLAN OF CARE/RECOMMENDATION: Infed 600mg IVPB once B12 1mg daily Continue vitamin daily x 2 months on D/C for ABLA Will follow up with CVTS. * Zoila Pelletier [facility] - 05/17/2024 10:16 AM EDTAssociated Order(s): PHARMACY CONSULT IP Pharmacy has reviewed patient's current medication orders and has timed medication administration times to fall between the hours of 0600 and 2200 where appropriate. Please contact pharmacy if there are any other needs. Saline flushes adjusted to avoid midnight interval. Zoila Pelletier PharmD, BCPS, BCCP, BCCCP, CACP * Mary Gardner RN - 05/16/2024 10:42 AM EDTAssociated Order(s): CARE MANAGEMENT CONSULT IP Please see ancillary tab for note from care management. * Carlos Bernstein OT - 05/16/2024 9:52 AM EDTAssociated Order(s): ADULT OCCUPATIONAL THERAPY CONSULT IP GENERAL EVALUATION- Occupational Therapy [address] [phone] Name: Amairani Khan [place] [facility] H763/A Date: 05/16/2024 Time: 1:39 PM HPI: Per EPIC, "Patient is a 73 year old female with PMHx significant for HTN, HLD, and GERD that presented from [facility] after being found to have multivessel disease necessitating multiple stentplacement on 05/13. Patient reports that starting on Saturday of last week, she started to have a bad headache, rated 6/10, and pain on the sides of her neck. Patient took her blood pressure, and found it to be elevated at around 150/100. On Saturday, patient went to a clinic and they increased her home Lisinopril 10mg to 20mg daily. Patient remained taking this dose of 20mg without resolution of her high blood pressure. Her headache persisted throughout the week, although waned down to a 1/10 gra dually. On Saturday, patient began to worry as she began to experience, as she described, a "twinge" in her left chest, described as a "mild heaviness", associated with numbness and tingling of her Left arm and right lower leg. Patient denies any associated shortness of breath, dizziness, vision changes, or weakness. At this point, patient decided to go to the emergency department in [place].At [facility], patient states that this chest pressure lasted all day, but is unable to provide history as to when exactly it stopped. Patient's headache also resolved while at [facility]. Patient describes no other feelings of this chest pressure except for one other time during election day last year. Per document review that arrived with patient, patient arrived hypertensive to [facility] with a blood pressure of 162/107, pulse in the 60s, and saturating 99% on RA. Troponins were found to be non-elevated at 4.8 > 5 > 5.8. CXR demonstrated no acute processes, and EKG was negative for acute ischemic changes. Patient was loaded with aspirin and started on Heparin. On 05/12, patient underwent myocardial perfusion scan which demonstrated small area of apical infarction with moderate lotus-infarct ischemia involving the apical anterior wall, apical septum, and apex, with ischemia tnyrcpdps15% of the total myocardium. Calculated EF >70%. Patient was taken for cardiac catheterization an d found to have multivessel disease, with 95% proximal LAD occlusion, 80% mRCA occlusion, and 50% proximal OM2 occlusion. Patient was then transferred to [facility] [place] further management. On arrival, patient is resting comfortably in bed. Vitals stable, with BP at 135/96. Patient deniesheadache, chest pain, shortness of breath, dizziness, numbness, tingling or other complaints. Patient able to lay flat, and denies any contrast allergy. Patient wants to be FULL CODE at this time. Wants her to make decisions for her in the setting that she is not able to make decisions for herself. Lives with . At baseline ambulates with cane or walker when having knee pain. Reports no tobacco use. Reports no alcohol abuse or no illicit substance use" Patient Status: Inpatient Insurance: Payor: [facility] GOLD Plan: [facility] CLASSIC COMPLETE RX MH-GD Product Type: *No Product type* Patient Seen: at bedside, nursing cleared patient for therapy Patient Identified By: Name, ID Band and Date Diagnosis: s/p CABG x3 (05/16/24951) Status of treatment: Evaluation completed (05/16/24951) Orders: OT evaluation and treatment;OT OOB (05/16/24951) Weight Bearing Status: Weight bearing as tolerated (05/16/24951) Precautions: Alarms;Cardiac;Central line;Chest tube;Falls;[place];External pacer;Safety;Sternal (05/16/24951) Total Treatment Time: 15 (05/16/24951) Past Medical History: Past Medical History: Diagnosis Date COPD, moderate (HCC) 01/26/2013 Diverticulitis GERD (gastroesophageal reflux disease) 01/26/2013 HTN, goal below 140/90 09/07/2009 Modified per HTN protocol #16. Hyperlipidemia LDL goal < 130 02/17/2009 Hypertension Kidney disease Nephrolithiasis OTHER DISEASE OF TRACHEA AND BRONCHUS 04/13/2010 Rhinitis, non-allergic 01/26/2013 Rhinitis, non-allergic 01/26/2013 acute Thyroid nodule Past Surgical History: Past Surgical History: Procedure Laterality Date COLONOSCOPY 05/2006 Dr Ackerman COLONOSCOPY, DIAGNOSTIC (RECTUM) 08/20/2018 normal bx, diverticulosis, repeat 10 yrs/COLONOSCOPY FLEXIBLE PROXIMAL DIAGNOSTIC performed by Nneka Mayer MD at [facility]COPY [facility] COLONOSCOPY, DIAGNOSTIC (RECTUM) 03/15/2023 COLONOSCOPY FLEXIBLE PROXIMAL DIAGNOSTIC performed by Karlos Olivarez MD at [facility]OSCOPY [facility] EGD, FLEXIBLE, DIAGNOSTIC 08/20/2018 mild inflammation/ESOPHAGOGASTRODUODENOSCOPY (EGD), FLEXIBLE, TRANSORAL, DIAGNOSTIC performed by Nneka Mayer MD at [facility]OSCOPY [facility] EGD, FLEXIBLE, DIAGNOSTIC 08/19/2023 hiatal hernia/ESOPHAGOGASTRODUODENOSCOPY (EGD), FLEXIBLE, TRANSORAL, DIAGNOSTIC performed by Ector Mireles MD at ENDOSCOPY [facility] FRAGMENT KIDNEY STONE BY SHOCK WAVE Right 10/02/2021 RIGHT LITHOTRIPSY EXTRACORPOREAL SHOCK WAVE performed by Ankush Loya MD at OR [facility] MAMMOGRAM SCREENING BILATERAL 01/12/2010 scattered fibroglandular densities, category 1 normal MISCELLANEOUS ORDER 1994 bladder tacking MOBILE DXA 01/21/2019 Lumbar T -2-2, Femur T -1, fx risk 8.3%/0.7%, low risk, repeat 3 years PARTIAL HYSTERECTOMY 1994 Hysterectomy Partial RMV MALG LSN FACE/EARS .6-1CM 01/01/2012 Dr Swain Social History/Disposition Lives with: Spouse (05/16/24951) Assistance available: Yes (05/16/24951) Dwelling type: Multi-story home (05/16/24951) Entry steps: 4 (05/16/24951) Inside steps: 10 - 15 (05/16/24951) Bedroom location: 1st floor (05/16/24951) Bath location: 2nd floor full bath (05/16/24951) Prior Level of Function Reported by: Patient (05/16/24951) Ambulation: Ambulatory without device (05/16/24951) Grooming: Independent (05/16/24951) Bathing: Independent (05/16/24951) Dressing: Independent (05/16/24951) Feeding: Independent (05/16/24951) Toileting: Independent (05/16/24951) Meal Prep: Independent (05/16/24951) Homemaking: Independent (05/16/24951) Durable Medical Equipment at home: Rolling walker (05/16/24951) Observations Consciousness: Alert (05/16/24951) Orientation: Oriented times 4 (05/16/24951) Psychosocial: Patient can communicate basic needs;Patient can converse in a social setting (05/16/24951) Sitting posture: Forward head;Rounded shoulders (05/16/24951) Standing posture: Forward head;Rounded shoulders (05/16/24951) Safety awareness: The Patient verbalizes insight of current deficits.;The Patient demonstrates carryover of insight during functional tasks. (05/16/24951) Pain: Patient has complaints of surgical site pain Current Functional Status: UE Strength/ROM: BUE are WFL and at least 4-/5 grossly (not fully tested due to sternal precautions) OT Transfers Sit-Stand: Contact Guard (05/16/24951) Stand-Sit: Contact Guard (05/16/24951) Functional Ambulation Assistive Device: Rolling walker (05/16/24951) Distance in feet:: 10 (05/16/24951) Level of Assistance: Contact Guard (05/16/24951) Self Care Able to provide self care: Yes (05/16/24951) Balance Sit (Static): Fair (05/16/24951) Sit (Dynamic): Fair (05/16/24951) Stand (Static): (Fair-) (05/16/24951) Stand (Dynamic): (Fair-) (05/16/24951) Dressing Upper Body: Moderate Assistance (to simulate gown) (05/16/24951) Lower Body: Maximal Assistance (to manage socks) (05/16/24951) Equipment Equipment used in Therapy: Rolling walker (05/16/24951) Patient and or Family Goal(s): None Alarm Status Patient positioned in: Chair (05/16/24951) With: Pressure pad alarm intact and functioning and call castro in reach (05/16/24951) Following session patient seated OOB in chair with chair alarm activated and cord plugged into callbell system. Treatment Provided: Evaluation Moderate Complexity 15 minutes - 39582: Patient was cooperative during treatment session. Moderate complexity evaluation performed and 3-5 activity limitations were identified, including ADL deficit, functional mobility deficit, bed mobility deficit, decreased strength, and decreased endurance. Minimal or moderate modification of the functional task was necessary tocomplete the evaluation. Patient Education Education Topic: Role of OT;Plan of care goals (05/16/24951) Review of Precautions: Safety;Fall;Cardiac;Sternal (05/16/24951) Method of Education: Verbalized to patient (05/16/24951) Education Provided to: Patient (05/16/24951) Response to Education: Receptive and agreeable to education (05/16/24951) Barriers to learning: None (05/16/24951) Preferred learning method: Combination (05/16/24951) Method of Education: Verbal discussion and explanation provided to patient: verbalized understanding and or agreement of this information Assessment: Patient is a 73 year old female admitted on 05/15/24 seen s/p CABG x3. She was previously living at home and reports being independent for ADLs/mobility. On exam, patient presented OOB in chair. She was able to simulate UB dressing with moderate assistance as she was limited by lines/sternal precautions. She required max assist to manage socks due to pain/difficulty reaching LEs. Patient ambulated short distance in room using walker with contact guarding, however, was limited by fatigue. She would benefit from ongoing acute OT services to improve function. Please consider post-acute care services which may include home health, [place] [facility], outpatient therapy or inpatient rehab ilitation. The level of care will be determined in collaboration with patient, family/caregiver andcare team members. AM-PAC Help From Another Person Eating Meals: None (05/16/24951) Help From Another Person Taking Care of Personal Grooming: A little (05/16/24951) Help From Another Person To Put On/Take Off Upper Body Clothing: A lot (05/16/24951) Help From Another Person To Put On/Take Off Lower Body Clothing: A lot (05/16/24951) Help From Another Person Toileting: A lot (05/16/24951) Help From Another Person Bathing: A little (05/16/24951) OT AM-PAC Score: 16 (05/16/24951) OT AM-PAC t-Scale Score: 35.96 (05/16/24951) HLM (Highest Level of Mobility) Goal: Level 4 move to chair/commode (05/16/24914) A portion of this AM-PAC assessment not scored based on functional assessment; rather clinical decision making was utilized based on current findings and/or prior level of function. Please refer to future AM-PAC calculations of functional ability as they become available. Deficits requiring O.T. treatment needs: ADL/self- care;Balance;Endurance;Functional mobility;IADL;Safety;Upper extremity strength;Weakness (05/16/24951) Goals: Demonstrate sitting Balance of Fair+ Demonstrate standing Balance of Fair+ Demonstrate self care at modified independence for all UB and LB tasks Demonstrate toileting with modified independence Demonstrate Bed Mobility with modified independence Demonstrate Transfers with modified independence Demonstrate Functional Ambulation with modified independence Treatment Plan: Accuracy with Precautions, Safety, Bed mobility training, Functional Ambulation, Transfer training, Coordination Tasks, Upper extremity strengthening, Balance activities, ADL training, and Endurance Goal Time Frame:8 visits Anticipated Frequency (on eval): 1 to 3 times per week (05/16/24951) * Kasandra Palacios, PT - 05/16/2024 9:52 AM EDTAssociated Order(s): ADULT PHYSICAL THERAPY CONSULT IP GENERAL EVALUATION - Physical Therapy [address] [phone] Name: Amairani Khan Location: [address] Date: 05/16/2024 Time: 1:52 PM Amairani Khan is a/an 73 year old female. Patient Status: Inpatient Insurance: Payor: [facility] GOLD Plan: [facility] CLASSIC COMPLETE RX MH-GD Product Type: *No Product type* Patient Seen: at bedside, nursing cleared patient for therapy Patient Identified By: Name, ID Band and Date Diagnosis: s.p CABG (05/16/24951) Status of treatment: Evaluation completed (05/16/24951) Orders: PT evaluation and treatment;OOB (05/16/24951) Weight Bearing Status: Weight bearing as tolerated (05/16/24951) Precautions: Chest tube;External pacer;Falls;Oxygen;Safety;[place] (05/16/24951) Total Treatment Time--free text: 16 (05/16/24951) Past Medical History: Past Medical History: Diagnosis Date COPD, moderate (HCC) 01/26/2013 Diverticulitis GERD (gastroesophageal reflux disease) 01/26/2013 HTN, goal below 140/90 09/07/2009 Modified per HTN protocol #16. Hyperlipidemia LDL goal < 130 02/17/2009 Hypertension Kidney disease Nephrolithiasis OTHER DISEASE OF TRACHEA AND BRONCHUS 04/13/2010 Rhinitis, non-allergic 01/26/2013 Rhinitis, non-allergic 01/26/2013 acute Thyroid nodule Past Surgical History: Past Surgical History: Procedure Laterality Date COLONOSCOPY 05/2006 Dr Ackerman COLONOSCOPY, DIAGNOSTIC (RECTUM) 08/20/2018 normal bx, diverticulosis, repeat 10 yrs/COLONOSCOPY FLEXIBLE PROXIMAL DIAGNOSTIC performed by Nneka Mayer MD at [facility]COPY [facility] COLONOSCOPY, DIAGNOSTIC (RECTUM) 03/15/2023 COLONOSCOPY FLEXIBLE PROXIMAL DIAGNOSTIC performed by Karlos Olivarez MD at ENDOSCOPY [facility] EGD, FLEXIBLE, DIAGNOSTIC 08/20/2018 mild inflammation/ESOPHAGOGASTRODUODENOSCOPY (EGD), FLEXIBLE, TRANSORAL, DIAGNOSTIC performed by Nneka Mayer MD at ENDOSCOPY [facility] EGD, FLEXIBLE, DIAGNOSTIC 08/19/2023 hiatal hernia/ESOPHAGOGASTRODUODENOSCOPY (EGD), FLEXIBLE, TRANSORAL, DIAGNOSTIC performed by Ector Mireles MD at ENDOSCOPY [facility] FRAGMENT KIDNEY STONE BY SHOCK WAVE Right 10/02/2021 RIGHT LITHOTRIPSY EXTRACORPOREAL SHOCK WAVE performed by Ankush Loya MD at OR [facility] MAMMOGRAM SCREENING BILATERAL 01/12/2010 scattered fibroglandular densities, category 1 normal MISCELLANEOUS ORDER 1994 bladder tacking MOBILE DXA 01/21/2019 Lumbar T -2-2, Femur T -1, fx risk 8.3%/0.7%, low risk, repeat 3 years PARTIAL HYSTERECTOMY 1994 Hysterectomy Partial RMV MALG LSN FACE/EARS .6-1CM 01/01/2012 Dr Swain Subjective: Pt is willing to participate Social History/Disposition Lives with: Spouse (05/16/24951) Assistance available: Yes (05/16/24951) Dwelling type: Multi-story home (05/16/24951) Entry steps: 4 (05/16/24951) Inside steps: 10 - 15 (05/16/24951) Bedroom location: 1st floor (05/16/24951) Bath location: 2nd floor full bath (05/16/24951) Prior Level of Function Reported by: Patient (05/16/24951) Ambulation: Ambulatory without device (RW prn) (05/16/24951) Devices at home: Rolling walker (05/16/24951) Observations Consciousness: Alert (05/16/24951) Orientation: Oriented times 4 (05/16/24951) Psychosocial: Patient can converse in a social setting;Patient can communicate basic needs (05/16/24951) Other Findings: Yes (05/16/24951) Findings: Light touch sensation (05/16/24951) Light Touch Sensation Results: Intact;LLE;RLE (05/16/24951) Sitting Posture: Rounded shoulders (05/16/24951) Standing Posture: Rounded shoulders (05/16/24951) Pain: Patient has complaints of pain. Pain located in her chest. Range of Motion Range of Motion: WFL (05/16/24951) Strength Assessment Strength Assessment: Deficits noted (05/16/24951) WNL, except: LLE;RLE (05/16/24951) LLE: 4/5 (05/16/24951) RLE: 4/5 (05/16/24951) Transfers Sit-Stand: Contact Guard (05/16/24951) Stand-Sit: Contact Guard (05/16/24951) Ambulation: Distance ambulated (feet): 12 Assistive Device: Rolling walker Assist: Contact Guard Balance Sit (Static): Fair (05/16/24951) Sit (Dynamic): Fair (05/16/24951) Stand (Static): (Fair-) (05/16/24951) Stand (Dynamic): (Fair-) (05/16/24951) Patient and or Family Goal(s): to get well and to return home Patient Education Review of Precautions: Safety;Fall (05/16/24951) Safety Awareness: Patient verbalizes insight of current deficits;Patient demonstrates carryover of insight during functional tasks;Patient can communicate basic needs (05/16/24951) Preferred learning method: Combination (05/16/24951) Barriers to learning: Medical Status (05/16/24951) Method of Education: Verbalized to patient (05/16/24951) Topic of Education: Safety with mobility, Goals/plan of care, Use of assistive device, and Fall prevention Method of Education: Verbal discussion and explanation provided to patient: verbalized understanding and or agreement of this information and demonstrated the exercise and or task Treatment Provided: Evaluation Moderate Complexity 16 minutes - 55130: Patient was cooperative, pleasant, and alert during treatment session. Moderate complexity evaluation performed and 1-2 personalfactors or comorbidities were identified that will impact plan of care, including multiple steps athome and cardiac history. Patient presents with limitations in strength, bed mobility, transfers, gait, elevations, balance, endurance, and safety, which will impact plan of care. These limitations will be addressed by the goals set for this patient. Alarm Status Patient positioned in: Chair (05/16/24951) With: Call castro in reach (05/16/24951) Treatment Status: Treatment at bedside (05/16/24951) Goals: Demonstrate Bed mobility sit<>supine with supervision Transfer sit<>stand with supervision Ambulate with supervision and RW for 50ft Negotiate 12 stairs with one hand rail and supervision Increase BLE strength by 1/2 MMT grade Improve all balance to Fair Time Frame: 8 visits Assessment: Pt is a 73 y/o female treated at this facility s/p CABG. Prior to admission pt was living with her spouse in a 2 story home, independent with mobility without an AD. Currently she requires CGA for transfers and a short ambulation, with pt becoming dizzy after approx 12 ft and needing tosit down. Following seated pt with improvement in symptoms. Pt would benefit from continued physical therapy this admission to address the above deficits and maximize independence with functional mobility and improve quality of life. Please consider post-acute care services which may include home health, [place] [facility], outpatient therapy or inpatient rehabilitation. The level of care will be determined in collaboration with patient, family/caregiver and care team members. Deficits requiring P.T. treatment needs: Safety;Mobility;Balance;Weakness;Endurance;Lower extremitystrength (05/16/24951) Equipment Needs: Treatment Plan: Bed mobility training, Transfer training, Gait training, Elevation training, Strengthening exercises: BLE, and Balance activities Anticipated Frequency (on eval): 3 to 5 times per week (05/16/24951) AM PAC Score with Stairs: 11 A portion of this AM-PAC assessment not scored based on functional assessment; rather clinical decision making utilized based on current findings and/or prior level of function. Please refer to future AM-PAC calculations of functional ability as they become available. * Wale Connor RN - 05/14/2024 8:03 AM EDTAssociated Order(s): BLOOD MANAGEMENT CONSULT IP REQUESTING SERVICE: [facility] REASON FOR CONSULT: new evaluation inpatient, pre-op Latest Reference Range & Units 05/13/24 14:31 05/13/24 16:54 HGB 12.0 - 15.3 g/dL 14.0 14.5 HCT 36.0 - 45.2 % 42.1 43.1 Iron 33 - 151 ug/dL 92 Iron Binding Capacity 250 - 425 ug/dL 305 Transferrin Saturation Percent 15 - 55 % 30 Ferritin 13 - 150 ng/mL 217 (H) Immature Reticuloctye Fraction 2.5 - 20.6 % 16.3 Reticulocyte Hemoglobin 29.7 - 37.4 pg 34.6 (H): Data is abnormally high Chart reviewed. In absence of severe anemia, hemorrhage, or personal beliefs that prohibit blood transfusion would not recommend urgent therapy with iron, vitamins, or erythroid stimulating agents atthis time. If no active hemorrhage, consider PRBC transfusion only for severe anemia and use a 1 unit PRBC dose followed by a repeat clinical assessment. For reversal of anticoagulation therapy, use Reversal of Anticoagulation order set. Please recommend outpatient follow up that includes repeat assessment of hemoglobin when stable fordischarge. Please call with questions. Thank you for allowing Blood Management to participate in the care of this patient. * Alfonso Jay MD - 05/13/2024 4:55 PM EDTAssociated Order(s): CARDIAC SURGERY CONSULT IP CONSULT - CARDIAC SURGERY [facility] [address] Name: Amairani Khan Location: [facility] [id number] Date: 05/13/2024 Time: 4:56 PM REFERRING PHYSICIAN: German Laboy DO PCP: Dale Taylor MD FILM COLOR TESTER: previously followed with Sarah Antoine PA-C; pt states she most recently sawa new lathe sander named Mehul, cannot find in chart REQUESTING SERVICE: Internal Medicine REASON FOR CONSULT: Multivessel disease ([place] transfer from cardiac cath after found to have 95%pLAD, 80% mRCA, 50%pOM2) HPI: Amairani Khan is a 73 year old female who presented to [facility] ED on 05/11/24. Patient has been having headaches and neck pains for the past week. She presented at a [facility] where she was told to increase her lisinopril and atenolol, however this has not helped. As of 2 days ago, she developed chest pressure and was encouraged to seek care at the ED. Patient states that several days ago she started with left sided chest pressure. She states she wasn't doing anything specific at that time, maybe just regular housework. She states that it is present constantly, at rest and with activity - nothing seems to make it better or worse. It radiates to her left arm, which she states feels "funny and dull." Admits to recent decreased level of activity due to pain. She denies associated SOB. Admits to chronic bouts of abdominal pain and constipation due to IBS for which she takes pantoprazole. Admits of her right leg also feeling "funny and dull". Significant family history of heart disease (mother and sister both of heart attacks in 60s.) In the ED, initial troponins were negative. Patient was found to have tortuous thoracic aorta notedon CXR (most likely previously present based on wording under impression). Patient underwent cardiac catheterization at [facility] and was found to have MVCAD (95% pLAD, 80% mRCA, 50% proximal OM2 per IM digital intern, scan of cath results pending). Of note, she checks her BP at home and states it has been consistently high. Patient has history of chest pain/angina: Yes, see HPI. Patient has history of SOB/FAIR: No Patient has syncope/presyncope: No Presentation associated with endocarditis/bacteremia: No Patient has PMH of: HTN, asthma/pulmonary HTN, hx of GI bleed, IBS, GERD, frequent PVCs [place] Heart Failure Classification: Class II (Mild) ALLERGIES: Baclofen, Codeine, Levaquin [levofloxacin], and Sulfa antibiotics PAST MEDICAL HISTORY: Past Medical History: Diagnosis Date COPD, moderate (HCC) 01/26/2013 Diverticulitis GERD (gastroesophageal reflux disease) 01/26/2013 HTN, goal below 140/90 09/07/2009 Modified per HTN protocol #16. Hyperlipidemia LDL goal < 130 02/17/2009 Hypertension Kidney disease Nephrolithiasis OTHER DISEASE OF TRACHEA AND BRONCHUS 04/13/2010 Rhinitis, non-allergic 01/26/2013 Rhinitis, non-allergic 01/26/2013 acute Thyroid nodule PAST SURGICAL HISTORY: Past Surgical History: Procedure Laterality Date COLONOSCOPY 05/2006 Dr Ackerman COLONOSCOPY, DIAGNOSTIC (RECTUM) 08/20/2018 normal bx, diverticulosis, repeat 10 yrs/COLONOSCOPY FLEXIBLE PROXIMAL DIAGNOSTIC performed by Nneka Mayer MD at ENDOSCOPY [facility] COLONOSCOPY, DIAGNOSTIC (RECTUM) 03/15/2023 COLONOSCOPY FLEXIBLE PROXIMAL DIAGNOSTIC performed by Karlos Olivarez MD at ENDOSCOPY [facility] EGD, FLEXIBLE, DIAGNOSTIC 08/20/2018 mild inflammation/ESOPHAGOGASTRODUODENOSCOPY (EGD), FLEXIBLE, TRANSORAL, DIAGNOSTIC performed by Nneka Mayer MD at ENDOSCOPY [facility] EGD, FLEXIBLE, DIAGNOSTIC 08/19/2023 hiatal hernia/ESOPHAGOGASTRODUODENOSCOPY (EGD), FLEXIBLE, TRANSORAL, DIAGNOSTIC performed by Ector Mireles MD at ENDOSCOPY [facility] FRAGMENT KIDNEY STONE BY SHOCK WAVE Right 10/02/2021 RIGHT LITHOTRIPSY EXTRACORPOREAL SHOCK WAVE performed by Ankush Loya MD at OR [facility] MAMMOGRAM SCREENING BILATERAL 01/12/2010 scattered fibroglandular densities, category 1 normal MISCELLANEOUS ORDER 1994 bladder tacking MOBILE DXA 01/21/2019 Lumbar T -2-2, Femur T -1, fx risk 8.3%/0.7%, low risk, repeat 3 years PARTIAL HYSTERECTOMY 1994 Hysterectomy Partial RMV MALG LSN FACE/EARS .6-1CM 01/01/2012 Dr Swain Hx of vein harvest or stripping?: no SOCIAL HISTORY: Drug Use: No smoking history, no alcohol use, no illicit drug use Social History Tobacco Use Smoking status: Never Smokeless tobacco: Never Vaping Use Vaping status: Never Used Substance Use Topics Alcohol use: No Drug use: No FAMILY HISTORY: Family History Problem Relation Name Age of Onset Diabetes Mother Hypertension Mother hypothyroid Cancer Father thyroid, of brain aneurysm Gastro-intestinal disorder Mother Ulcerative Colitis Blood Disorder Sister Alysha Espinal hypo thyroid,hiatal hernia,Pemphigus, Pernicious anemia Heart Disorder Mother CAD, had OK Diabetes Sister Nneka CHF,hypothyroid Diabetes Brother Florin Ball hypothyroid No Past Hx Brother doesn't go to doc No Past Hx Brother No Past Hx Brother Family History of Premature CAD (Less than 55 year old male relative or less than 65 year old female relatives with history of angina, acute OK, sudden cardiac without obvious cause, CABG surgery, or PCI.): yes - mother, sisters, 3 of brothers all had heart disease. 2 brothers with stents. Sister and brother with PPM. Other sister of heart attack at 67. Mother at 65. Father of brain aneurysm. REVIEW OF SYSTEMS: Constitutional: denies weight loss, denies fever, denies shaking chills Eyes: denies double vision , denies blurred vision , denies visual spots Ear, nose and throat: denies trouble swallowing Dental: last dental visit December 2023, no issues at time Cardiac: see HPI, had palpitations recently Vascular: no claudication Respiratory: see HPI, denies cough Gastrointestinal: admits to abdominal pain and constipation (has IBS) which she takes pantoprazole for), denies nausea, denies vomiting, denies diarrhea Genitourinary: denies dysuria, denies hematuria, currently has known kidney stone, failed lithotripsy Musculoskeletal: chronic joint pain in neck (right side), knees bilaterally and lower back Psychiatric: denies depression, denies anxiety Skin: denies rash, denies non-healing ulcers Neurologic: denies trouble speaking, denies weakness, denies unilateral weakness Endocrine: denies constant thirst, denies constant hunger Hematologic / Lymphatic: denies blood clotting problems, denies bruising Immunologic: denies trouble fighting infections CARDIOTHORACIC COMPLETE PHYSICAL EXAM: Most Recent Vital Signs: BP: 135 mmHg/96 mmHg (05/13/24 1410) Pulse: 65 (05/13/24 1410) Resp: 16 (05/13/24 1410) Temp: 36.72 C (05/13/24 1410) Temp Summary: Temp Min: 36.7 C (98.1 F) Max: 36.7 C (98.1 F) SpO2: 99 % (05/13/24 1410) O2 flow rate: Supplemental O2 Delivery: PHYSICAL EXAM: General: no acute distress, alert and oriented, and stated age Head: normocephalic Neck: no bruits Chest: normal respiratory effort Lungs: lungs clear to auscultation Cardiac Exam: regular rate & rhythm Slight murmur heard at right upper sternal border Pulses: The following pulses are normal: radials Abdomen: abdomen soft, non-tender, and normal active bowel sounds Extremities: no edema Skin: warm and dry Neuro: grossly normal exam LABS/STUDIES: Cardiac Cath Data: MVCAD (95% pLAD, 80% mRCA, 50% proximal OM2 per report, scan of cath results pending). Labs reviewed as indicated below: Latest Reference Range & Units 05/13/24 14:31 05/13/24 16:54 Sodium 135 - 146 mmol/L 140 Potassium 3.5 - 5.1 mmol/L 4.0 Chloride 98 - 107 mmol/L 111 (H) CO2 22 - 32 mmol/L 18 (L) BUN 6 - 20 mg/dL 18 Creatinine 0.5 - 1.0 mg/dL 1.0 Estimated Glomerular Filtration Rate >=60 mL/min 59 (L) Anion Gap 7 - 15 mmol/L 11 Glucose 70 - 120 mg/dL 112 Calcium 8.4 - 10.2 mg/dL 8.8 INR 0.8 - 1.2 1.0 Prothrombin Time 11.6 - 15.2 seconds 13.1 Heparin, Unfractionated <0.10 IU/mL <0.10 aPTT 21 - 38 seconds 30 CBC Rpt Rpt WBC 4.00 - 10.80 K/uL 6.51 6.41 RBC 3.85 - 5.15 M/uL 4.66 4.82 HGB 12.0 - 15.3 g/dL 14.0 14.5 HCT 36.0 - 45.2 % 42.1 43.1 MCV 81.5 - 97.5 fL 90.3 89.4 MCH 27.0 - 34.0 pg 30.0 30.1 MCHC 32.0 - 36.0 g/dL 33.3 33.6 RDW 11.5 - 15.5 % 13.1 13.1 PLT 140 - 400 K/uL 162 167 MPV 6.6 - 11.1 fL 10.7 10.5 (H): Data is abnormally high (L): Data is abnormally low Rpt: View report in Results Review for more information Society of Thoracic Surgeons (STS) Risk Score: STS site Based off Dobutamine Stress Echo results from Oct 2022 Procedure Type: Isolated CABG PERIOPERATIVE OUTCOME ESTIMATE % Operative Mortality 1.2% Morbidity & Mortality 4.96% Stroke 1.01% Renal Failure 0.598% Reoperation 1.86% Prolonged Ventilation 2.64% Deep Sternal Wound Infection 0.173% Long Hospital Stay (>14 days) 2.07% Short Hospital Stay (<6 days)* 50.4% IMPRESSION: 73 yo female with PMH of HTN, asthma/pulmonary HTN, hx of GI bleed, IBS, GERD, frequentPVCs who presented to [facility] with complaints of headaches, neck pain, and elevated BP x1 week and chest pressure x2 days. Found to have MVCAD on cardiac cath. Transferred to [facility] for further workup. PLAN: - Surgeon to see - Pre-op orders placed Rosie Wolfe PA-C Patient seen and studies reviewed. Xin Khan is a 73-year-old female with past medical history significant for hypertension and strong positive family history for coronary artery disease who presented to the emergency room with hypertension and chest and neck discomfort. A nuclear medicine stress test was positive for reversible ischemia. This led to a coronary angiogram demonstrating a 90% proximal left anterior descending lesion as well as serial 80% lesions in a dominant right coronary artery. The circumflex had a 50% mid lesion. Echocardiogram is pending but nuclear medicine stress test estimated her ejection fraction of 70%. She denies any heart failure symptoms. Xin has increasing anginal symptoms and multivessel coronary artery disease. The most significant lesion is in the proximal left anterior descending. I believe she would be at a low risk for surgical revascularization. Multivessel PCI may also be an option. Amairani his relatively young and has few medical problems. I told her that short-term results of PCI and surgery are similar however long-term results favor surgery. At this time she was undecided as to how she would like to proceed. She will discuss her options further with Cardiology before making a final decision. documented in this encounter Nursing Notes * Jacky Singh RN - 05/20/2024 12:24 PM EDT I have conducted the discharge appointment with the patient (ph: ), family (ph: ), and nursing on 05/20/2024 at 12:27 PM. This discussion occurred bedside. Meds to beds offered: n/a The following post care is planned: PCP follow up. I encouraged the patient and/or family to call the hospital with any questions or concerns about the hospital admission. * Mo Solomon RN - 05/15/2024 5:16 PM EDT Educated pt on extubation process and restrictions. Pt extubated to 6L NC. No signs of distress. NoSOB. No stridor. Pulse 78, RR 18, BP 127/62, pulse ox 100. Pt offers no complaints and is resting comfortably. Extubated @ 1710 * Mo Solomon RN - 05/15/2024 2:00 PM EDT Dual Licensed Skin Assessment completed by Chasity Solomon and Jame Mancia RN . The patient is/has a N/A Skin Breakdown (includes non blanchable erythema): Yes - Surgical/Procedural changes only. * Roberto Husain RN - 05/15/2024 6:01 AM EDT Dual Licensed Skin Assessment completed by Roberto Villanueva RN and Franci Hernandez RN. The patient is/has a N/A Skin Breakdown (includes non blanchable erythema): No * Ruthann Raya RN - 05/15/2024 5:33 AM EDT 03/15/24 0535 - Pre-op/PACU called to notify of potassium orders noted on DEC but where not written before leaving H7 to take pt there. This RN noted order on return from PACU when completing chartingon this patient for this shift. Patient taken to PACU 0510 with zoll monitor, oxygen and ambu bag and beside monitor. Transport completed without incident. Pre-op shave and shower completed this am prior to taking patient to PACU. Labs drawn and resulted. Atenolol given per order. Report given to VERTICA ARCHITECT on arrival to PACU. * Summer Dill RN - 05/13/2024 8:33 PM EDT Dual Licensed Skin Assessment completed by Summer Dill and Amee Salinas. The patient is/has a N/A Skin Breakdown (includes non blanchable erythema): No documented in this encounter OR Notes * OR Surgeon - Alfonso Jay MD - 05/15/2024 12:03 PM EDT OPERATIVE RECORD OR [facility], OPERATING ROOM [facility], [address] [address] Amairani Khan : 1950 Location: [facility] SERVICE: Cardiac Surgery DATE: 05/15/24 PREOPERATIVE DIAGNOSIS: CAD POSTOPERATIVE DIAGNOSIS: CAD SURGEON: Alfonso Jay MD ASSISTANTS: DIEGO Sims ANESTHESIA: general OPERATION: CABG X 3 HERNANDEZ to LAD SVG to OM, PDA FINDINGS: triphasic flow in grafts ESTIMATED BLOOD LOSS: 500ml DRAINS: adequate FLUIDS: adequate mL. URINE OUTPUT: adequate SPECIMEN: None. COMPLICATIONS: None. CONDITION: stable INDICATIONS AND HISTORY: Amairani Khan is a 73-year-old female who presented with chest and neck pain. Workup included a nuclear medicine stress test that was positive for inducible ischemia. Sheunderwent coronary angiogram revealing severe multivessel coronary disease involving the proximal LAD, mid right coronary artery and obtuse marginal branch. Due to the multivessel nature of her disease she was referred for surgical revascularization. DESCRIPTION OF OPERATION: The patient was placed on the operating table in the supine position. General anesthesia was induced and monitoring lines placed by anesthesia. She was prepped and draped inusual sterile fashion. Greater saphenous vein was endoscopically harvested from the left lower extremity. Median sternotomy performed and the left internal mammary artery taken from beneath the left sternum. The patient was heparinized and placed on cardiopulmonary bypass using a cannula in the ascending aorta and a three-stage venous cannula in the right atrium. The patient was systemically cooled and the aorta crossclamped. [place] cardioplegia was delivered in antegrade fashion with prompt diastolic arrest of the heart. The proximal posterior descending coronary artery was opened. A segment of saphenous vein was anastomosed using 7 0 Prolene. Next the obtuse marginal coronary artery was opened. It was grafted with a separate segment of saphenous vein using 7 0 Prolene. The left internal mammary artery was then anastomosed to an intra myocardial left anterior descending coronaryartery using 8 0 Prolene. Under a partial occlusion clamp the 2 vein grafts were anastomosed to ascending aorta using 6 0 Prolene. Following a period of rewarming the patient was weaned from cardiopulmonary bypass without difficulty. The heparin was reversed and all cannulas removed. Temporary pacing wires were placed on the right ventricle and chest tubes placed in the left pleural space and mediastinum. After assuring adequate hemostasis the chest was closed with surgical steel wire for the s ternum followed by a layered closure of Vicryl and a subcuticular stitch for skin. The patient tolerated procedure well. Sponge and needle counts were correct. She was returned to the ICU in stable condition. Was there a qualified resident that took part in the case? No - The skilled assistance of the advanced practitioner/physician was necessary for the successful completion of this case. Regional Planner name: DIEGO Sims Regional Planner role: The advanced practitioner/physician was essential for retraction, wound closure, and saphenous vein harvesting - endovascular I understand that section 1842 (b)(7)(D) of the Social Security Act generally prohibits Medicare physician fee schedule payment for the services of [id number] in teaching hospitals when qualified residents are available to furnish such services. I certify that the services for which payme nt is claimed were medically necessary, and that no qualified resident was available to perform theservices. I further understand that these services are subject to post-payment review by the Medicare carrier. Alfonso Jay MD 05/15/2024 12:04 PM documented in this encounter Miscellaneous Notes * Ancillary Progress Note - Oscar Crouch RN - 05/20/2024 10:56 AM EDT CARE MANAGEMENT - ADULT DISCHARGE NOTE [facility] [address] Name: Amairani Khan Location: [facility] H763/[id number] Date: 05/20/2024 Time: 10:56 AM The following coordination of care and discharge plan has been coordinated with the care team, patient, family and/or caregiver according to the patients needs and preferences. Discharge Discharge Second Notice Important Message from Medicare delivered: Yes (05/20/24 1000) Date Delivered: 05/18/24 (05/20/24 1000) Discharge Transportation: Family/Friends drive (05/20/24 1000) Date of scheduled discharge transportation: 05/20/24 (05/20/24 1000) Final Discharge Plan (Complete only at time of Discharge): Home with Services (05/20/24 1000) Home Medical Care - Admitted Since 05/13/2024 Service Provider Selected Services Address Phone Fax Patient Preferred Last Updated [facility] [address] [place] [address], [place] [id number] [phone] -- Tamy Platt, MSN 05/18/2024 1427 Narrative: Xin is discharging today with the above agency for services. CM notified agency of d/c and faxed d/c summary to [phone]. * Ancillary Progress Note - Vanna Herron PTA - 05/20/2024 9:13 AM EDT PROGRESS NOTE - Physical Therapy [address] [address] Name: Amairani Khan [place] [facility] [place] [facility] Date: 05/20/2024 Time: 09:13 AM Amairani Khan is a/an 73 year old female. Patient Status: Inpatient Insurance: Payor: [facility] GOLD Plan: P CLASSIC COMPLETE RX MH-GD Product Type: *No Product type* Patient Identified By: Name, ID Band and Date Diagnosis: s/p CABG x3 (05/20/24912) Status of treatment: Treatment completed (05/20/24912) Orders: PT evaluation and treatment (05/20/24912) Weight Bearing Status: Weight bearing as tolerated (05/20/24912) Precautions: Falls;Sternal (05/20/24912) Total Treatment Time--free text: 17 (05/20/24912) Treatment Provided: Gait Training 15 minutes: gait training with rolling walker stair training Pain: Patient has complaints of pain. Pain located sternal pain. Transfers Sit-Stand: Supervision (for 3 transfers) (05/20/24912) Stand-Sit: Supervision (for 3 transfers) (05/20/24912) Ambulation: Distance ambulated (feet): 20'x3 & 15' Assistive Device: Rolling walker Assist: Supervision Stair Training: Number of stairs: 3 Number of handrails: 1 Level of Assistance: contact guard assist Noted gait deviations: slow gait (05/20/24912) Balance Sit (Static): Fair (05/20/24912) Sit (Dynamic): Fair (05/20/24912) Stand (Static): Fair (05/20/24912) Stand (Dynamic): (fair to fair -) (05/20/24912) Topic of Education: Safety with mobility, Goals/plan of care, Use of assistive device, Stair training, and Fall prevention Method of Education: Verbal discussion and explanation provided to pt: Alarm Status Patient positioned in: Chair (05/20/24912) With: Call castro in reach (no alarm upon arrival) (05/20/24912) Patient Education Review of Precautions: Safety;Fall;Sternal (05/20/24912) Safety Awareness: Patient verbalizes insight of current deficits;Patient demonstrates carryover of insight during functional tasks;Patient can communicate basic needs;Needs cueing supervision (05/20/24912) Assessment: Upon arrival pt seated in recliner. She completed transfers and ambulation with supervision. She ascended/descended 3 steps using 2 hands on 1 handrail requiring contact guard assist. Pt utilized step to gait sequencing for safety. Discussed pt with PT Ki Mccauley and agreed due to functional improvement to consider home with post-acute care services which may include home health oroutpatient therapy. The level of care will be determined in collaboration with the patient, family/caregiver and care team members. Deficits requiring P.T. treatment needs: Safety;Mobility;Balance;Weakness;Endurance;Lower extremitystrength (05/20/24912) Equipment needs: Rolling walker (05/20/24912) Plan: Continue with current treatment plan established on evaluation. AM PAC Score with Stairs: 18 A portion of this AM-PAC assessment not scored based on functional assessment; rather clinical decision making utilized based on current findings and/or prior level of function. Please refer to future AM-PAC calculations of functional ability as they become available. * Progress Notes - Post-Op Global - Alfonso Jay MD - 05/20/2024 4:11 AM EDT PROGRESS NOTE - CARDIAC SURGERY [address] [address] Name: Amairani Khan [place] [facility] [place] [facility] Date: 05/20/2024 Time: 12:02 AM OPERATION: CABG X 3 (HERNANDEZ to LAD; SVG to OM, PDA) SURGEON: Alfonso Jay MD POD#: 5 PATIENT ISSUES/EVENTS: Stable interval. Trying to get off O2 overnight (has only been on 1L NCO2). PHYSICAL EXAM: General: no acute distress Heart Exam: regular rate and rhythm, no murmurs Lungs: normal respirations, clear to auscultation Abdominal Exam: abdomen soft, non-tender, and normal active bowel sounds Extremities: warm, dry, and well perfused Incision: sternotomy - clean, dry and intact, vein harvest site - clean, dry and intact Neurological: alert Pulses: radial CURRENT CORE CARDIAC MEDICATIONS: Beta Kelly: yes ASA: yes Statin: yes FLORECITA-Inhibitor / ARB: no, explain -- normal LVEF POSTOPERATIVE COMPLICATIONS: acute post op blood loss anemia atrial fibrillation ADDITIONAL PROCEDURES: none ASSESSMENT/PLAN: Cardiovascular: -NSR, rate 60-70s, SBP 100s-110s -+ 200mg TID for post-op afib -Beta kelly: Atenolol 25 (50 FOOD AND DRUG INSPECTOR) -Statin: Lipitor 80mg -Pre-op EF 55% -Central Line(s): Removed -Pacer Wires: out Chronic Issues: -HTN on Atenolol 50mg and Lisinopril 20mg -Dyslipidemia on Pravastatin Pulmonary: -Was on 1L NCO2, weaning to RA overnight -Increased O2 requirements while in afib and required intermediate NCO2 6-8L for several hours 05/17 -Daily CXR -Aggressive pulmonary toilet -Chest Tubes/Adriel Drains: No GI: -Diet: Regular -Bowel regimen -> +BM since surgery -FOOD AND DRUG INSPECTOR Protonix for GI prophylaxis /Renal: -Pre-op renal function normal, last Cr 1.0 -Villarreal: Removed -IV Lasix 40mg prn Hematology: -Hgb 8.2, plt 152 -Subq hep restarted -Aspirin 81mg -Blood products: None Neuro/P.T./O.T.: -Neurologically intact -Pain controlled- limiting narcotics due to confusion at night and need for 1:1 -Increase activity as tolerated Chronic Issues: -Sleeping difficulty on Remeron Infectious Disease: -Afebrile, WBC 8.07 -Post-op Ancef completed -Pre-op nasal culture negative - Rocephin for dirty UA pre-op Endo: -No insulin needs (A1C 5.6) Plan: -Wean to RA -Continue Amio 200mg TID for post-op afib -Switch to PO Lasix/K in AM -Increase activity as tolerated -Home soon Rosie Wolfe PA-C Stable Ambulating on room air Wounds look good Continue diuresis Plan home later today * Ancillary Progress Note - Michelle Wakefield COTA/L - 05/19/2024 3:10 PM EDT PROGRESS NOTE - Occupational Therapy [facility] [place] [address] Name: Amairani Khan [place] [facility] [place] [facility] Date: 05/19/2024 Time: 3:10 PM Amairani Khan is a 73 year old female. Patient Status: Inpatient Insurance: Payor: [facility] GOLD Plan: [facility] CLASSIC COMPLETE RX MH-GD Product Type: *No Product type* Patient Seen: at bedside, nursing cleared patient for therapy Patient Identified By: Name, ID Band and Date Diagnosis: s/p CABG x3 (05/19/241345) Status of treatment: Treatment completed (05/19/241345) Orders: OT evaluation and treatment (05/19/241345) Weight Bearing Status: Weight bearing as tolerated (05/19/241345) Precautions: Alarms;Cardiac;Falls;Oxygen;Safety;Sternal (05/19/241345) Total Treatment Time: 25 (05/19/241345) Subjective: patient agreeable to OT session Pain: Patient has complaints of pain. Pain located incision site. Did not rate Observations Consciousness: Alert (05/19/241345) Orientation: Oriented times 4 (05/19/241345) Psychosocial: Patient can communicate basic needs (05/19/241345) Sitting posture: Forward head;Rounded shoulders (05/19/241345) Standing posture: Forward head;Rounded shoulders (05/19/241345) Safety awareness: The Patient verbalizes insight of current deficits.;The Patient can communicate basic needs.;Needs cueing supervision. (05/19/241345) Other Findings Light touch sensation: LUE;RUE;Intact (05/16/24951) Coordination: LUE;RUE;Intact (05/16/24951) Current Functional Status: Activities of Daily Living: Functional Ambulation Assistive Device: Rolling walker (05/19/241345) Distance in feet:: 100 (x2) (05/19/241345) Level of Assistance: Contact Guard (05/19/241345) OT Transfers Sit-Stand: Supervision (Please comment) (05/19/241345) Stand-Sit: Supervision (Please comment) (05/19/241345) Toilet: Contact Guard (05/18/24 0954) Balance Sit (Static): Fair (05/19/241345) Sit (Dynamic): Fair (05/19/241345) Stand (Static): (fair-) (05/19/241345) Stand (Dynamic): (fair-) (05/19/241345) Patient Education Education Topic: Role of OT;Plan of care goals (05/19/241345) Review of Precautions: Safety;Cardiac;Fall;Sternal (05/19/241345) Review of Exercises: Pt Demonstrated Exercise;Verbal Exercises Provided (05/19/241345) Method of Education: Verbalized to patient (05/19/241345) Education Provided to: Patient (05/19/241345) Response to Education: Receptive and agreeable to education (05/19/241345) Barriers to learning: None (05/19/241345) Preferred learning method: Combination (05/19/241345) Alarm Status Patient positioned in: Chair (05/19/241345) With: Pressure pad alarm intact and functioning and call castro in reach (cord plugged into wall) (05/19/241345) Treatment Provided: Therapeutic Activity: 12 minutes Therapeutic Procedure: 13 minutes Upper Extremity exercise Demonstrate Exercises: LUE;RUE;Shoulder;Elbow;Wrist;2 sets of 10;Flexion;Extension;Supination/pronation (05/19/241345) Peformed in: Seated (05/19/241345) Deficits requiring O.T. treatment needs: ADL/self- care;Balance;Endurance;Functional mobility;IADL;Safety;Upper extremity strength;Weakness (05/16/24 0952) Assessment: patient out of bed in recliner upon entering room. Reviewed and educated on sternal andcardiac precautions. Performed UE strength and endurance exercises in all available plans while following precautions. Therapeutic rest breaks provided secondary to fatigue and increase SOB. Supervision for functional transfer from recliner and contact guard assistance for functional mobility with rolling walker. Patient required a few standing therapeutic rest breaks secondary to fatigue and increase SOB. Please consider home with post- acute care services which may include home health or outpatient therapy. The level of care will be determined in collaboration with the patient, family/caregiver and care team members. Would benefit from continued OT to maximize functional capabilities. Plan: Continue to follow as per plan. Anticipated Frequency (on eval): 1 to 3 times per week (05/19/241345) Equipment Equipment used in Therapy: Rolling walker (05/19/241345) Equipment Needs Equipment needs: Rolling walker (05/19/241345) AM-PAC Help From Another Person Eating Meals: None (05/19/24) Help From Another Person Taking Care of Personal Grooming: A little (05/19/241345) Help From Another Person To Put On/Take Off Upper Body Clothing: A little (05/18/24953) Help From Another Person To Put On/Take Off Lower Body Clothing: Total (05/18/24953) Help From Another Person Toileting: Total (05/18/24953) Help From Another Person Bathing: A lot (05/18/24953) OT AM-PAC Score: 14 (05/18/24953) OT AM-PAC t-Scale Score: 33.39 (05/18/24953) HLM (Highest Level of Mobility) Goal: Level 6 walk 10 steps or more (05/19/24 0800) A portion of this AM-PAC assessment not scored based on functional assessment ; rather clinical decision making utilized based on current findings and/or prior level of function. Please refer to future AM-PAC calculations of functional ability as they become available. * Ancillary Progress Note - Ana Goel RRT - 05/19/2024 3:01 PM EDT PATIENT DRIVEN PROTOCOL - Respiratory Care Services [address] [address] Name: Amairani Khan [place] [facility] [place] [facility] Date: 05/19/2024 Time: 3:01 PM Patient Driven Protocol Summary: Re-evaluation . This Treatment Plan and medications will be reviewed by the Primary Care Team for any contraindications. Respiratory Care Treatment Plan Aerosol Therapy Treatment:: EzPAP Treatment TID with . to prevent or treat alveolar consolidation and atelectasis. . Pulmonary Volume Expansion Therapy: Incentive Spirometry PRN to prevent or treat alveolar consolidation and atelectasis. . Secretion Management Treatment: Flutter TherapyPRN to enhance mobilization of secretions. . The patient will be re-evaluated: within 48 hours. The Triage Level is: (Assessment Score = 11-15) Level 3. Triage Level Definitions: Level 1 Severe Respiratory/Airway Compromise Level 2 Moderate Respiratory/Airway Compromise or high risk for pulmonary complications Level 3 Mild Respiratory/Airway Compromise or moderate risk for pulmonary complications Level 4 Episodic Respiratory/Airway Compromise or low risk for pulmonary complications Level 5 No Respiratory/Airway Compromise Triage 1 Triage 2 Triage 3 Triage 4 Triage 5 greater than 20 16 - 20 11 - 15 6 - 10 0 - 5 Medical Record Assessment Clinical Findings Pulmonary Status: 0 - No History Surgical Status: 3 - Thoracic or Upper Abdominal Chest X-Ray: 4 - Bilateral Infiltrates and Atelectasis Assessment Score: 7 Patient Assessment Clinical Findings Respiratory Pattern: 0 - RR 12 - 20; Patient only gets breathless with strenuous exercise. Breath Sounds: 2 - Diminished bilaterally Cough Effectiveness: 0 - Strong non-productive Sputum Production: 0 - No sputum production Level of Activity: 1 - Ambulatory with assist O2 needed to keep SpO2 greater than or equal to 92%: 1 - Oxygen 1-3 LPM or FiO2 less than 35% Assessment Score: 4 Total Assessment Score: 11 Breath Sounds: Inspiratory and expiratory clear and diminished bilaterally in the bases.. Cough and Sputum: An effective cough produced no sputum... CXR: EXAM XR CHEST 1 VIEW - 05/19/2024 5:48 am HISTORY follow up postop open heart TECHNIQUE A single frontal radiograph of the chest was obtained. COMPARISON Chest radiograph 05/18/2024. FINDINGS FOREIGN BODIES, SUPPORT TUBES, LINES, DEVICES: Intact sternal wires. Mediastinal surgical materialstypical of multivessel CABG. Epicardial pacer wires. LUNGS, PLEURA: Bibasilar opacities typical of passive atelectasis and small pleural effusions, similar from most recent priors. No pneumothorax. HEART, MEDIASTINUM: The cardiomediastinal silhouette appears grossly enlarged and dense, unchanged from prior exams. OTHER: None. IMPRESSION IMPRESSION 1. Unchanged peers opacities typical of pleural effusions and passive atelectasis. 2. Unchanged enlarged, dense cardiomediastinal silhouette. Exam Ended: 05/19/24 05:48 Last Resulted: 05/19/24 07:29 . Vital Signs: Resp: 18 (05/19/24 1200) Pulse: 69 (05/19/24 1200) Temp: 36.6 C (97.9 F) (05/19/24 1200) BP: 102/67 (05/19/24 1200) SpO2: 98 % (05/19/24 1200) PFT: Minimal Predicted IC: 0.855. L. Inspiratory capacity: 0.500L. Patient unable to perform Inspiratory Capacity. Reason: . Primary Service: Cardiac Surgery. Admitting Diagnosis: Chest pain [R07.9] Multiple vessel coronary artery disease [I25.10] Pulmonary Diagnosis: Atelectasis, CAD, Hypertension, and Pleural Effusions. Prescriptions/Home Medications/Durable Medical Equipment: none. Recommended New home medications/durable medical equipment/outpatient pulmonary/sleep referral . * Progress Notes - Post-Op Global - Alfonso Jay MD - 05/19/2024 2:29 AM EDT PROGRESS NOTE - CARDIAC [place] [facility] [place] [address] Name: Amairani Khan [place] [facility] [place] [facility] Date: 05/19/2024 Time: 2:29 AM OPERATION: CABG X 3 (HERNANDEZ to LAD; SVG to OM, PDA) SURGEON: Alfonso Jay MD POD#: 4 PATIENT ISSUES/EVENTS: Confusion resolved. Alert to person, place, and time. PHYSICAL EXAM: General: no acute distress Heart Exam: NSR with PACs, no murmurs Lungs: normal respirations Abdominal Exam: abdomen soft, non-tender, and normal active bowel sounds Extremities: warm, dry, and well perfused Incision: sternotomy - clean, dry and intact, vein harvest site - clean, dry and intact Neurological: alert to person, place, and time Pulses: dorsalis pedis CURRENT CORE CARDIAC MEDICATIONS: Beta Kelly: yes ASA: yes Statin: yes FLORECITA-Inhibitor / ARB: no, explain -- normal LVEF POSTOPERATIVE COMPLICATIONS: acute post op blood loss anemia atrial fibrillation ADDITIONAL PROCEDURES: none ASSESSMENT/PLAN: Cardiovascular: -NSR with PACs, rate 60-70s, SBP 100s-140s -+ 200mg TID for post-op afib -Beta kelly: Atenolol 25 -Statin: Lipitor 80mg -Pre-op EF 55% -Central Line(s): Removed -Pacer Wires: yes - will d/c today if no further afib Chronic Issues: -HTN on Atenolol 50mg and Lisinopril 20mg -Dyslipidemia on Pravastatin Pulmonary: -Satting well on 2L NCO2 -Increased O2 requirements while in afib and required intermediate NCO2 6-8L for several hours 05/17 -Daily CXR -Aggressive pulmonary toilet -Chest Tubes/Adriel Drains: No GI: -Diet: Regular -Bowel regimen -> Patient states she has had BM, but none documented; Miralax -FOOD AND DRUG INSPECTOR Protonix for GI prophylaxis /Renal: -Pre-op renal function normal, last Cr 1.0 -Villarreal: Removed -IV Lasix 40mg prn Hematology: -Hgb 8.3, plt 96 -Holding SQ Heparin for low platelets -Aspirin 81mg -Blood products: None Neuro/P.T./O.T.: -Neurologically intact - neuro status improved, alert to person, place, and time -Pain controlled- limiting narcotics due to confusion at night and need for 1:1 -Increase activity as tolerated Chronic Issues: -Sleeping difficulty on Remeron Infectious Disease: -Afebrile, WBC 9.06 -Post-op Ancef completed -Pre-op nasal culture negative - Rocephin for dirty UA pre-op Endo: -No insulin needs (A1C 5.6) Plan: -Increase beta kelly as tolerated (Atenolol FOOD AND DRUG INSPECTOR) -Continue Amio 200mg TID for post-op afib -Diurese with IV Lasix 40mg prn -D/c wires pending no further afib -Increase activity as tolerated -Home soon Rosie Wolfe PA-C Stable Still on NC O2 Cont diuresis Ambulate Likely home tomorrow * Ancillary Progress Note - Alfonso Elaine II, RDN - 05/18/2024 11:41 AM EDT CLINICAL NUTRITION ADULT RISK ASSESSMENT [facility] [place] [address] Name: Amairani Khan [place] [facility] [place] [facility] Date: 05/18/2024 Time: 2:41 PM How patient was identified (select 2): Medical record number, date, and Name Xin Khan is a 73 year old female being assessed for clinical nutrition risk related to extended LOS Primary diagnosis: chest pain, OPERATION: CABG X 3 (HERNANDEZ to LAD; SVG to OM, PDA) Date/Time: 05/15/24 0700 Other pertinent information: Patient reports eating well prior to admission. Looking forward to regular food today at lunch. Anthropometrics Measurements Admission weight (for dietitians): 83.2 kg Height: 165.1 cm (5' 5") (05/13/24 1410) Weight: 89.3 kg (196 lb 13.9 oz) (05/18/24 0500) Usual Body Weight or EDW for Dialysis Patients: 81.5 kg Diet: Regular Previously followed diet: regular Food Allergies/Intolerances: none Pertinent medications/vitamins/minerals/supplements: vitamin B12, colace, lasix, protonix, potassium, senna RISK FACTORS: Adult Energy Intake: No significant decrease Interpretation of Weight Change: No recent/significant weight change Skin: Intact NUTRITION RISK CATEGORY: Nutrition Risk Category: Low/Moderate (0-1 factors) Clinical Nutrition Recommendations: Diet: Continue current nutrition plan NUTRITION INTERVENTION/PLAN: Risk/Re-risk Assessment completed. Continue current care plan Will follow and adjust nutritional plan as medical condition requires. Please contact for change(s)in patient condition requiring earlier intervention. * Ancillary Progress Note - Tamy Platt MSN - 05/18/2024 11:02 AM EDT HOME HEALTH/HOSPICE REFERRAL FORM CARE MANAGEMENT [address] [address] Referred By: Tamy Morelos, MSN Admission Date: 05/13/2024 Discharge Date: Discharge Time: Start Date: 24-48 hours Agency Referred To: [facility] Nurs[facility] PATIENT INFORMATION: Name: Amairani Khan [address]: [address] [place] [id number] : 1950 (home) SSN: [id number] County: [place] Emergency Contacts: Extended Emergency Contact Information Primary Emergency Contact: Alfonso Khna [address]: [address] [facility] [address] [facility] Mobile Relation: Spouse Preferred language: Gambian Produce Team Lead needed? No Secondary Emergency Contact: Alfonso Khan Jr Mobile Relation: Adult Child Produce Team Lead needed? No MEDICAL INFORMATION: Principal Diagnosis: CABG x 3 Other Diagnosis: See attached History and Physical Surgery and Dates: Past Surgical History: Procedure Laterality Date COLONOSCOPY 05/2006 Dr Ackerman COLONOSCOPY, DIAGNOSTIC (RECTUM) 08/20/2018 normal bx, diverticulosis, repeat 10 yrs/COLONOSCOPY FLEXIBLE PROXIMAL DIAGNOSTIC performed by Nneka Mayer MD at ENDOSCOPY [facility] COLONOSCOPY, DIAGNOSTIC (RECTUM) 03/15/2023 COLONOSCOPY FLEXIBLE PROXIMAL DIAGNOSTIC performed by Karlos Olivarez MD at ENDOSCOPY [facility] EGD, FLEXIBLE, DIAGNOSTIC 08/20/2018 mild inflammation/ESOPHAGOGASTRODUODENOSCOPY (EGD), FLEXIBLE, TRANSORAL, DIAGNOSTIC performed by Nneka Mayer MD at ENDOSCOPY [facility] EGD, FLEXIBLE, DIAGNOSTIC 08/19/2023 hiatal hernia/ESOPHAGOGASTRODUODENOSCOPY (EGD), FLEXIBLE, TRANSORAL, DIAGNOSTIC performed by Ector Mireles MD at ENDOSCOPY [facility] FRAGMENT KIDNEY STONE BY SHOCK WAVE Right 10/02/2021 RIGHT LITHOTRIPSY EXTRACORPOREAL SHOCK WAVE performed by Ankush Loya MD at OR [facility] MAMMOGRAM SCREENING BILATERAL 01/12/2010 scattered fibroglandular densities, category 1 normal MISCELLANEOUS ORDER 1994 bladder tacking MOBILE DXA 01/21/2019 Lumbar T -2-2, Femur T -1, fx risk 8.3%/0.7%, low risk, repeat 3 years PARTIAL HYSTERECTOMY 1994 Hysterectomy Partial RMV MALG LSN FACE/EARS .6-1CM 01/01/2012 Dr Swain Diet: Adults: As tolerated and see doctor's discharge instructions Allergies: Baclofen, Codeine, Levaquin [levofloxacin], and Sulfa antibiotics Isolation Type: None Activity Restrictions: Cardiac precautions Isolation For: None HOME CARE ORDERS: (Discipline and Frequency): Skilled nusing Overall health assessment and vital signs Medication management and teaching Disease management and teaching Home safety evaluation Assess for services PT/OT evaluation as indicated Lab work as indicated Medications Dose, Frequency, & Route: Refer to Physician's Discharge Instructions Equipment and Supplies: N/A Ordering Physician and Contact Information: Dr. Alfonso Jay Comments: n/a PCP: PCP: DALE TAYLOR [address] [place] [address] [place] [address] [phone] D/C Physician: Dr. Alfonso Jay Insurance: See attached facesheet. * Ancillary Progress Note - Michelle Wakefield COTA/Paul - 05/18/2024 10:59 AM EDT PROGRESS NOTE - Occupational Therapy [address] [address] Name: Amairani Khan [place] [facility] [place] [facility] Date: 05/18/2024 Time: 10:59 AM Amairani Khan is a 73 year old female. Patient Status: Inpatient Insurance: Payor: [facility] [place] Plan: [facility] [employer] COMPLETE RX MH-GD Product Type: *No Product type* Patient Seen: at bedside, nursing cleared patient for therapy Patient Identified By: Name, ID Band and Date Diagnosis: s/p CABG x3 (05/18/24953) Status of treatment: Treatment completed (05/18/24953) Orders: OT evaluation and treatment (05/18/24953) Weight Bearing Status: Weight bearing as tolerated (05/18/24953) Precautions: Alarms;Cardiac;External pacer;Falls;Villarreal;Oxygen;Safety;Sternal (05/18/24953) Total Treatment Time: 38 (05/18/24953) Subjective: patient agreeable to OT session Pain: Patient has complaints of pain. Pain located incision site. Did not rate Observations Consciousness: Alert (05/18/24953) Orientation: Oriented times 4 (05/18/24953) Psychosocial: Patient can communicate basic needs (05/18/24953) Sitting posture: Forward head;Rounded shoulders (05/18/24953) Standing posture: Forward head;Rounded shoulders (05/18/24953) Safety awareness: The Patient verbalizes insight of current deficits.;The Patient can communicate basic needs.;Needs cueing supervision. (05/18/24953) Other Findings Light touch sensation: LUE;RUE;Intact (05/16/24951) Coordination: LUE;RUE;Intact (05/16/24951) Current Functional Status: Activities of Daily Living: Self Care Able to provide self care: Yes (05/16/24951) Grooming: Supervision (Please comment) (05/18/24953) Toileting: Dependent (05/18/24953) Dressing Upper Body: Minimal Assistance (05/18/24953) Lower Body: Dependent (05/18/24953) Bathing Upper Body: Supervision (Please comment) (05/18/24953) Functional Ambulation Assistive Device: Rolling walker (05/18/24953) Distance in feet:: 25 (x2) (05/18/24953) Level of Assistance: Contact Guard (05/18/24953) OT Transfers Sit-Stand: Contact Guard (min assist from low surface) (05/18/24953) Stand-Sit: Contact Guard (05/18/24953) Toilet: Contact Guard (05/18/24953) Balance Sit (Static): Fair (05/18/24953) Sit (Dynamic): Fair (05/18/24953) Stand (Static): (fair-) (05/18/24953) Stand (Dynamic): (fair-) (05/18/24953) Patient Education Education Topic: Role of OT;Plan of care goals (05/18/24953) Review of Precautions: Safety;Cardiac;Fall;Sternal (05/18/24953) Method of Education: Verbalized to patient (05/18/24953) Education Provided to: Patient (05/18/24953) Response to Education: Receptive and agreeable to education (05/18/24953) Barriers to learning: None (05/18/24953) Preferred learning method: Combination (05/18/24953) Alarm Status Patient positioned in: Chair (05/18/24953) With: Pressure pad alarm intact and functioning and call castro in reach (05/18/24953) Treatment Provided: Self Senior Living Management Trainin minutes Therapeutic Activity: 10 minutes Deficits requiring O.T. treatment needs: ADL/self- care;Balance;Endurance;Functional mobility;IADL;Safety;Upper extremity strength;Weakness (05/16/24951) Assessment: patient out of bed in recline upon entering room. Reviewed and educated on sternal and cardiac precautions. Contact guard for functional transfer from recliner and toilet. Minimal assistance from low surface. Functional mobility with rolling walker, contact guard assistance. Dependent for toilet hygiene. Patient was set up at sink to perform ADL tasks. Supervision to wash/dry face andbrush teeth. Supervision to wash dry upper body. Minimal assistance to bethany/doff gown. Dependent todonn/doff socks. Therapeutic rest breaks secondary to increase SOB. Patient was on O2 nasal canula 3L's through out session. Please consider post-acute care services which may include home health, [place] [facility], outpatient therapy or inpatient rehabilitation. The level of care will be determined in collaboration with patient, family/caregiver and care team members. Would benefit from continued OT to maximize functional capabilities. Plan: Continue to follow as per plan. Anticipated Frequency (on eval): 1 to 3 times per week (05/18/24953) Equipment Equipment used in Therapy: Rolling walker (05/18/24953) Equipment Needs Equipment needs: Rolling walker (05/18/24953) AM-PAC Help From Another Person Eating Meals: None (05/18/24953) Help From Another Person Taking Care of Personal Grooming: A little (05/18/24953) Help From Another Person To Put On/Take Off Upper Body Clothing: A little (05/18/24953) Help From Another Person To Put On/Take Off Lower Body Clothing: Total (05/18/24953) Help From Another Person Toileting: Total (05/18/24953) Help From Another Person Bathing: A lot (05/18/24953) OT AM-PAC Score: 14 (05/18/24953) OT AM-PAC t-Scale Score: 33.39 (05/18/24953) HLM (Highest Level of Mobility) Goal: Level 5 standing (1 or more minutes) (05/18/24 0800) A portion of this AM-PAC assessment not scored based on functional assessment ; rather clinical decision making utilized based on current findings and/or prior level of function. Please refer to future AM-PAC calculations of functional ability as they become available. * Progress Notes - Post-Op Global - Alfonso Jay MD - 05/18/2024 12:05 AM EDT PROGRESS NOTE - [place]ARDIAC [place] [facility] [address] Name: Amairani Khan [place] [facility] [place] [facility] Date: 05/18/2024 Time: 12:05 AM OPERATION: CABG X 3 (HERNANDEZ to LAD; SVG to OM, PDA) SURGEON: Alfonso Jay MD POD#: 3 PATIENT ISSUES/EVENTS: Back in NSR. Confusion improving. PHYSICAL EXAM: General: no acute distress Heart Exam: regular rate and rhythm and no murmur, gallops, or rubs Lungs: normal respirations Abdominal Exam: abdomen soft, non-tender, and normal active bowel sounds Extremities: warm, dry, well perfused, and slight edema below vein harvest sight Incision: sternotomy - clean, dry and intact, vein harvest site - clean, dry and intact Neurological: alert Pulses: radial CURRENT CORE CARDIAC MEDICATIONS: Beta Kelly: no, explain -- low BP do not allow ASA: yes Statin: yes FLORECITA-Inhibitor / ARB: no, explain -- normal LVEF POSTOPERATIVE COMPLICATIONS: acute post op blood loss anemia atrial fibrillation ADDITIONAL PROCEDURES: none ASSESSMENT/PLAN: Cardiovascular: -NSR, rate 60s, SBP 110-120s -Amio gtt + 200mg TID for post-op afib -Beta kelly: Eventual -Statin: Lipitor 80mg -Pre-op EF 55% -Central Line(s): Yes, reason: Hemodynamic monitoring - will d/c once Amio gtt complete -Pacer Wires: yes - will d/c today if no further afib Chronic Issues: -HTN on Atenolol 50mg and Lisinopril 20mg -Dyslipidemia on Pravastatin Pulmonary: -Satting well on 3L NCO2 -Increased O2 requirements while in afib and required intermediate NCO2 6-8L for several hours 05/17 -Daily CXR -Aggressive pulmonary toilet -Chest Tubes/Adriel Drains: No GI: -Diet: Regular -Bowel regimen -> no BM since surgery -FOOD AND DRUG INSPECTOR Protonix for GI prophylaxis /Renal: -Pre-op renal function normal, last Cr 1.2 -Villarreal: Yes, reason: fluid monitoring and diuresis - will d/c today pending AM labs -IV Lasix 40mg prn Hematology: -Hgb 7.7, plt 86 -Holding SQ Heparin for low platelets -Aspirin 81mg -Blood products: None Neuro/P.T./O.T.: -Neurologically intact -Pain controlled- limiting narcotics due to confusion at night and need for 1:1 -Increase activity as tolerated Chronic Issues: -Sleeping difficulty on Remeron Infectious Disease: -Afebrile, WBC 8.95 -Post-op Ancef completed -Pre-op nasal and urine culture negative Endo: -No insulin needs (A1C 5.6) Plan: -Start beta kelly as HR improves (Atenolol FOOD AND DRUG INSPECTOR) -Continue Amio 200mg TID for post-op afib -Diurese with IV Lasix 40mg prn -D/c CVC and wires pending no further afib -D/c villarreal pending AM labs due to slight bump in Cr yesterday -Increase activity as tolerated -Home soon Ifeoma Ballesteros PA-C 05/18/2024 12:08 AM Stable Back in SR Cont diuresis Ambulate Home soon * Ancillary Progress Note - Chino King, YOLK SPRAY DRIER - 05/17/2024 3:52 PM EDT PDP RE-EVALUATION NOTE - Respiratory Care Services [facility] [address] Name: Amairani Khan [place] [facility] [place] [facility] Date: 05/17/2024 Time: 3:53 PM Patient Driven Protocol Summary: Re-evaluation . This Treatment Plan and medications will be reviewed by the Primary Care Team for any contraindications. Respiratory Care Treatment Plan Pulmonary Volume Expansion Therapy: Incentive Spirometry PRN to prevent or treat alveolar consolidation and atelectasis. Additional Pulmonary Volume Expansions: EzPAP Treatment: TID to prevent or treat alveolar consolidation and atelectasis. . Secretion Management Treatment: Flutter Therapy TID to enhance mobilization of secretions and prevent or treat alveolar consolidation and atelectasis. The patient will be re-evaluated: within 48 hours. The Triage Level is: (Assessment Score = 6 -10) Level 4. Triage Level Definitions: Level 1 Severe Respiratory/Airway Compromise Level 2 Moderate Respiratory/Airway Compromise or high risk for pulmonary complications Level 3 Mild Respiratory/Airway Compromise or moderate risk for pulmonary complications Level 4 Episodic Respiratory/Airway Compromise or low risk for pulmonary complications Level 5 No Respiratory/Airway Compromise Triage 1 Triage 2 Triage 3 Triage 4 Triage 5 greater than 20 16 - 20 11 - 15 6 - 10 0 - 5 Medical Record Assessment Clinical Findings Pulmonary Status: 0 - No History Surgical Status: 3 - Thoracic or Upper Abdominal Chest X-Ray: 2 - Infiltrates and/or Atelectasis Assessment Score: 5 Patient Assessment Clinical Findings Respiratory Pattern: 0 - RR 12 - 20; Patient only gets breathless with strenuous exercise. Breath Sounds: 2 - Diminished bilaterally Cough Effectiveness: 0 - Strong non-productive Sputum Production 0 - No sputum production Level of Activity: 1 - Ambulatory with assist O2 needed to keep SpO2 greater than or equal to 92%: 1 - Oxygen 1-3 LPM or FiO2 less than 35% Assessment Score: 4 Total Assessment Score: 9 Breath Sounds: Inspiratory and expiratory clear and diminished bilaterally.. Cough and Sputum: No cough was present.. Vital Signs: Resp: 30 (05/17/24 1500) Pulse: 68 (05/17/24 1500) Temp: 36 C (96.8 F) (05/17/24 1200) BP: 118/71 (05/17/24 1500) SpO2: 95 % (05/17/24 1500) Primary Service: Cardiac Surgery. Admitting Diagnosis: Chest pain [R07.9] Multiple vessel coronary artery disease [I25.10] Pulmonary Diagnosis: CAD. * Progress Notes - Post-Op Alfonso Todd MD - 05/17/2024 2:03 AM EDT PROGRESS NOTE - CARDIAC SURGERY [facility] [place] [address] Name: Amairani Khan [place] [facility] [place] [facility] Date: 05/17/2024 Time: 2:03 AM OPERATION: CABG X 3 (HERNANDEZ to LAD; SVG to OM, PDA) SURGEON: Alfonso Jay MD POD#: 2 PATIENT ISSUES/EVENTS: Required low-dose Levo yesterday AM for lower BP but eventually weaned off. Acute onset abdominal pain yesterday afternoon so KUB done and negative, spontaneously improved. Confusion overnight so now has 1:1 sitter in room. Afib with some hypoxia overnight so Amio gtt started. PHYSICAL EXAM: General: no acute distress Heart Exam: no murmur, gallops, or rubs and irregularly irregular Lungs: normal respirations Abdominal Exam: abdomen soft and non-tender Extremities: warm, dry, well perfused, and no edema Incision: sternotomy - clean, dry and intact, vein harvest site - clean, dry and intact Neurological: alert Pulses: radial CURRENT CORE CARDIAC MEDICATIONS: Beta Kelly: no, explain -- low BP do not allow ASA: yes Statin: yes FLORECITA-Inhibitor / ARB: no, explain -- normal LVEF POSTOPERATIVE COMPLICATIONS: acute post op blood loss anemia atrial fibrillation ADDITIONAL PROCEDURES: none ASSESSMENT/PLAN: Cardiovascular: -NSR, rate 60s, SBP 100-110s -Start Amio gtt + 200mg TID for post-op afib -Beta kelly: Eventual -Statin: Lipitor 80mg -Pre-op EF 55% -Central Line(s): Yes, reason: Hemodynamic monitoring -Pacer Wires: yes - will leave for now given afib Chronic Issues: -HTN on Atenolol 50mg and Lisinopril 20mg -Dyslipidemia on Pravastatin Pulmonary: -Satting well on 2L NCO2 but then had increased O2 requirements while in afib -Daily CXR -Aggressive pulmonary toilet -Chest Tubes/Adriel Drains: Yes: drainage 0-10cc/hr and on suction - will d/c today GI: -Diet: Regular -Bowel regimen -> no BM since surgery -FOOD AND DRUG INSPECTOR Protonix for GI prophylaxis /Renal: -Pre-op renal function normal, last Cr 1.0 -Villarreal: Yes, reason: fluid monitoring and diuresis - will d/c today -IV Lasix 40mg prn Hematology: -Hgb 7.9, plt 107 -SQ Heparin for DVT prophylaxis -Aspirin 81mg -Blood products: None Neuro/P.T./O.T.: -Neurologically intact -Pain controlled- limiting narcotics due to confusion and need for 1:1 -Increase activity as tolerated Chronic Issues: -RLS on Remeron Infectious Disease: -Afebrile, WBC 10.52 -Post-op Ancef x 5 doses -Pre-op nasal and urine culture negative Endo: -No insulin needs (A1C 5.6) Plan: -Start Amio gtt + 200mg TID for post-op afib -Diurese with IV Lasix 40mg prn -D/c chest tubes in AM. Leave wires for now given afib -D/c villarreal later today -Monitor mental status closely and try to eliminate 1:1 when able -Increase activity as tolerated Ifeoma Ballesteros PA-C 05/17/2024 4:44 AM Up in chair D/c CT, wires Back in SR Change to PO amiodarone Ambulate diuresis * Ancillary Progress Note - Mary Gardner RN - 05/16/2024 10:39 AM EDT CARE MANAGEMENT - ADULT INITIAL SCREENING [address] [address] Name: Amairani Khan [place] [facility] [place] [facility] Date: 05/16/2024 Time: 10:39 AM Discussed patient with the interdisciplinary care team. This Library Services Coordinator performed a chart review and met with patient at bedside to complete admission screen and assessed needs for transition planning. The restorative care technician role and services were explained and emotional support was provided. Chief Complaint: No chief complaint on file. Prior Living Arrangements What was your living situation prior to admission/observation?: With Spouse (05/16/24 1038) Living Quarters: House (05/16/24 1038) Number of steps to enter living quarters:: 0 (05/16/24 1038) Do you have serious difficulty walking or climbing stairs? (5 years old or older): No (05/13/24 1414) History of falling: No (05/16/24 0800) Prior Level of Functioning Describe the patient's ability prior to admission/observation to perform ADLs: Performs independently (05/16/24 1038) Describe the patient's mobility status prior to admission: Patient requires assistance with ambulation (05/16/24 1038) Patient uses assistive device: Yes (05/16/24 1038) If yes, choose:: Walker (05/16/24 1038) Caregiver Information Patient Contacts Name Relation Home Work Mobile BillAlfonso Spouse [phone] Alfonso Khan Jr P Adult Child [phone] Alysha Espinal Other - (no specific identity) [phone] Risk Stratification/Psychosocial/Care Gaps Risk Stratification Psycho Social / Medical Concerns Identified: Adjustment to illness/injury;Multiple Comorbidities (05/16/24 1038) Readmission Risk Score: 15.35 (05/16/24 0800) AM-PAC Score With Stairs : 12 (05/16/24 0915) Prior to Admission Services Services Prior to Admission FOOD AND DRUG INSPECTOR Services (Services received within the last 30 days with exception, Psych within last two years): N/A (05/16/24 1038) [place] Dept[employer] of Aging (PDA) Waiver Program: N/A (05/16/24 1038) FOOD AND DRUG INSPECTOR Transportation (Services received within the last 30 days): Family/Friends Personal Vehicle (05/16/24 1038) Outpatient Library Services Coordinator: No care meat team member to display Patient/Family Expectations: lives at home with spouse. Uses walker for mobility. Spouse able to assist with ADL deficits. No FOOD AND DRUG INSPECTOR oxygen. Has a cane and shower chair at home. Spouse will transport home when medically stable to discharge. For further screening information, please refer to the Care Management flow document. * Progress Notes - Post-Op Global - Alfonso Jay MD - 05/16/2024 12:10 AM EDT PROGRESS NOTE - CARDIAC SURGERY [facility] [address] Name: Amairani Khan [place] [facility] [place] [facility] Date: 05/16/2024 Time: 12:10 AM OPERATION: CABG X 3 (HERNANDEZ to LAD; SVG to OM, PDA) SURGEON: Alfonso Jay MD POD#: 1 PATIENT ISSUES/EVENTS: Arrived from OR on small amount of Levo which was quickly weaned off. Extubated routinely. No issues overnight. PHYSICAL EXAM: General: no acute distress Heart Exam: regular rate and rhythm and no murmur, gallops, or rubs Lungs: normal respirations Abdominal Exam: abdomen soft and non-tender Extremities: warm, dry, well perfused, and no edema Incision: sternotomy - clean, dry and intact, vein harvest site - clean, dry and intact Neurological: alert Pulses: radial CURRENT CORE CARDIAC MEDICATIONS: Beta Kelly: no, explain -- low BP do not allow ASA: yes Statin: yes FLORECITA-Inhibitor / ARB: no, explain -- normal LVEF POSTOPERATIVE COMPLICATIONS: acute post op blood loss anemia ADDITIONAL PROCEDURES: none ASSESSMENT/PLAN: Cardiovascular: -NSR, rate 70s, SBP 100s -CI 2.7, SVO2 60s -Pressors: None -Beta kelly: Eventual -Statin: Lipitor 80mg -Pre-op EF 55% -D/c swan and arterial line in AM -Central Line(s): Yes, reason: Hemodynamic monitoring -Pacer Wires: yes Chronic Issues: -HTN on Atenolol 50mg and Lisinopril 20mg -Dyslipidemia on Pravastatin Pulmonary: -Extubated routinely -Satting well on 4L NCO2 -Daily CXR -Aggressive pulmonary toilet -Chest Tubes/Adriel Drains: Yes: drainage 10-30cc/hr and on suction GI: -Diet: Regular -Bowel regimen -> no BM since surgery -FOOD AND DRUG INSPECTOR Protonix for GI prophylaxis /Renal: -Pre-op renal function normal, last Cr 0.8 -Villarreal: Yes, reason: fluid monitoring and diuresis -IV Lasix 40mg prn Hematology: -Hgb 9.0, plt 97 -Holding SQ Heparin for DVT prophylaxis -Aspirin 81mg -Blood products: None Neuro/P.T./O.T.: -Neurologically intact -Pain controlled -OOB in AM -PT/OT consults -Increase activity as tolerated Chronic Issues: -RLS on Remeron Infectious Disease: -Afebrile, WBC 7.91 -Post-op Ancef x 5 doses -Pre-op nasal and urine culture negative Endo: -Insulin gtt (A1C 5.6) Plan: -Start beta kelly as hemodynamics allow -D/c swan and arterial line in AM -Advance diet -OOB as tolerated, PT/OT consults Ifeoma Ballesteros PA-C 05/16/2024 12:10 AM Stable Pulmonary toilet Wean levo D/c swan OOB Change pain regimen * Ancillary Progress Note - Chino King, YOLK SPRAY DRIER - 05/15/2024 5:33 PM EDT PATIENT DRIVEN PROTOCOL - Respiratory Care Services [address] [address] Name: Amairani Khan [place] [facility] [place] [facility] Date: 05/15/2024 Time: 5:34 PM Patient Driven Protocol Summary: Initial evaluation performed. This Treatment Plan and medications will be reviewed by the Primary Care Team for any contraindications. Respiratory Care Treatment Plan Pulmonary Volume Expansion Therapy: Incentive Spirometry BID to prevent or treat alveolar consolidation and atelectasis. Additional Pulmonary Volume Expansions: EzPAP Treatment: Q6H to prevent or treat alveolar consolidation and atelectasis. . Secretion Management Treatment: Flutter [id number] to enhance mobilization of secretions and prevent or treat alveolar consolidation and atelectasis. . The patient will be re-evaluated: within 48 hours. The Triage Level is: (Assessment Score = 6 -10) Level 4. Triage Level Definitions: Level 1 Severe Respiratory/Airway Compromise Level 2 Moderate Respiratory/Airway Compromise or high risk for pulmonary complications Level 3 Mild Respiratory/Airway Compromise or moderate risk for pulmonary complications Level 4 Episodic Respiratory/Airway Compromise or low risk for pulmonary complications Level 5 No Respiratory/Airway Compromise Triage 1 Triage 2 Triage 3 Triage 4 Triage 5 greater than 20 16 - 20 11 - 15 6 - 10 0 - 5 Medical Record Assessment Clinical Findings Pulmonary Status: 0 - No History Surgical Status: 3 - Thoracic or Upper Abdominal Chest X-Ray: 2 - Infiltrates and/or Atelectasis Assessment Score: 5 Patient Assessment Clinical Findings Respiratory Pattern: 0 - RR 12 - 20; Patient only gets breathless with strenuous exercise. Breath Sounds: 0 - Clear to auscultation Cough Effectiveness: 0 - Strong non-productive Sputum Production: 0 - No sputum production Level of Activity: 2 - Temporarily non-ambulatory O2 needed to keep SpO2 greater than or equal to 92%: 2 - Oxygen 4-6 LPM or FiO2 35-50% Assessment Score: 4 Total Assessment Score: 9 Breath Sounds: Inspiratory and expiratory clear bilaterally.. Cough and Sputum: No cough was present.. CXR: EXAM XR CHEST 1 VIEW; XR ABDOMEN 1 VIEW-05/15/2024 1:19 pm HISTORY Baseline initial xray after open heart surgery; Gastric Tube placement verification COMPARISON 08/31/2021 TECHNIQUE Single frontal view of the chest and abdomen. FINDINGS See impression below. IMPRESSION IMPRESSION Lines/Tubes: Endotracheal tube is appropriately positioned. Right IJ [place] catheter terminates in the main pulmonary artery. Mediastinal drain and left- sided chest tube. Lungs/Pleura: Probable small left pleural effusion and left basilar atelectasis. No significant edema. No pneumothorax. Heart/Mediastinum: Cardiomediastinal silhouette is enlarged, stable. Interval CABG. Upper abdomen: Gastric tube terminates in the stomach, side hole below the GE junction. Nonobstructive bowel gas pattern.. Vital Signs: Resp: 16 (05/15/24 1730) Pulse: 73 (05/15/24 1730) Temp: 36.6 C (97.9 F) (05/15/24 0529) BP: 100/65 (05/15/24 1700) SpO2: 100 % (05/15/24 1730) PFT: Minimal Predicted IC: 0.855 L. Patient unable to perform Inspiratory Capacity. Reason: Somnolent. Primary Service: Cardiac Surgery. Admitting Diagnosis: Chest pain [R07.9] Multiple vessel coronary artery disease [I25.10] Pulmonary Diagnosis: CAD. Prescriptions/Home Medications/Durable Medical Equipment: None per chart. * Communication - Ruthann Raya RN - 05/15/2024 5:47 AM EDT Dual Licensed Skin Assessment completed by Ruthann Raya RN and Frederic Gutierres RN. The patient is/has a N/A Skin Breakdown (includes non blanchable erythema): No * Care Plan - Ruthann Raya RN - 05/15/2024 5:38 AM EDT Clinical Goal(s): Patient will remain free from falls (05/15/24 0000) Possible barriers to meeting goal(s)/advancing plan of care: pt pre-surgery, weak gait Stability of the patient: Moderately stable - low risk of patient condition declining or worsening Summary regarding today's goal(s): Met: Recommendations: fall precautions * Ancillary Progress Note - Gabbie Dubon RVT - 05/14/2024 7:02 AM EDT PROCEDURE - Vascular Lab [facility] [address] Name: Amairani Khan [place] [facility] [place] [facility] Date: 05/14/2024 Time: 7:02 AM FINAL PHYSICIAN REPORT TO FOLLOW. PROCEDURE: Right side: Carotid duplex Carotid duplex shows no evidence of hemodynamically significant carotid stenosis. Left side: Carotid duplex Carotid duplex shows no evidence of hemodynamically significant carotid stenosis. Lower extremity vein map completed. Please see final report. TECH NAME: Gabbie Dubon RVT documented in this encounter Plan of Treatment Upcoming Encounters Date Type Department Care Team (Late st Contact Info) Description 05/25/2024 12:20 PM EDT Office Visit [address] [place] [phone] Dale Taylor MD [address] [place] [address] [place] [id number] 05/29/2024 3:30 PM EDT Telemedicine Cardiothoracic Surg [facility], [place] [address] [place] [address] Noé Luciano PA-C [address] [place] [address] 06/17/2024 9:00 AM EDT Nurse Only Ancillary [address] [place] [address] [place], Nurse [address] [place] [address] 06/24/2024 1:00 PM EDT Office Visit Cardiothoracic Surg [place] [address] [place] [address] Alfonso Jay MD [facility] [place] [address] 07/02/2024 9:30 AM EDT Office Visit Cardiology [address] [place] [address] Sarah Antoine PA-C [address] [place] [address] 08/25/2024 1:40 PM EST Office Visit Family Medicine [address] [place] [phone] Dale Taylor MD [address] [place] [address] [place] [address] 10/05/2024 2:00 PM EST Office Visit Gastroenterology, [facility] [address] [place] [address] Martha Porter CRNP [address] [place] [id number] Scheduled Procedures Name Priority Associated Diagnoses Date/Ti me COLONOSCOPY FLEXIBLE PROXIMA L DIAGNOSTIC Recall Encounter for screening colonoscopy Scheduled Referrals Name Type Priority Associated Diagnoses Orde r Schedule CARDIAC REHAB REFERRAL OP Referral Within 30 days (routine) S/P CABG x 3 ACS (acute coronary syndrome) (HCC) Ordered: 05/15/2024 NUTRITION-CLINICAL DIETITIAN REFERRAL OP Referral Within 30 days (routine) S/P CABG x 3 Coronary artery disease involving [place] coronary artery of [place] heart with angina pectoris (HCC) Dyslipidemia, goal LDL below 100 HTN, goal below 140/90 Ordered: 05/18/2024 Health Maintenance Due Date Last Done Comments Sigmoidoscopy 1996 DTaP,Tdap,and Td Vaccines (2 - Td or Tdap) 07/14/2018 07/14/2008 Fecal Occult Blood Test 09/16/2020 09/16/2019, 12/05 Cologuard 01/27/2021 01/27/2018 Depression Screening 06/12/2024 06/12/2023 Influenza Vaccine (FLU shot) (#1) 2024 07/06/2023, 07/07/2022, 06/29/2021, Additional history exists Mammogram 11/13/2024 11/13/2023, 10/21, 11/06/2022, Additional history exists Albumin/Creatinine Ratio 12/11/2024 12/11/2021, 12/0 12/2018 DXA Scan 02/27/2025 02/27/2022, 02/18, 01/21/2019, Additional history exists GFR 05/20/2025 05/20/2024, 04/22, 05/18/2024, Additional history exists Colonoscopy 03/15/2033 03/15/2023, 02/19, 08/20/2018, Additional history exists Colorectal Cancer Screening 03/15/2033 Pneumococcal Vaccine: 65+ Years Completed 01/22/2019, 11/27/2016, 11/09/2013 Hepatitis C Screening Completed 09/16/2019, 018 Zoster Vaccines Completed 05/16/2021, 02/19, 02/19/2013 COVID-19 [...] encounter Medical Devices Implanted Type Area Health Information Systems Technician Device Identifier Shelf Expiration Date Model / Serial / Lot Suture Steel 6 B&S19 M654g - [id number] Implanted:Qty: 7 on 05/15/2024 by Alfonso Jay MD [place] [facility]/A: Sternum JNJ : [employer] 08/20/2028 M654G / / TMMAST Marker Coronary - [id number] Implanted:Qty: 1 on 05/15/2024 by Alfonso Jay MD [place] [facility]/A: Aorta [employer] 04/19/2027 AM-SD / / [id number] Description:attached to vein graft Marker Coronary - [id number] Implanted:Qty: 1 on 05/15/2024 by Alfonso Jay MD [place] [facility]/A: Aorta [employer] 03/20/2027 AM-SD / / [id number] Description:attached to vein graft documented as of this encounter Procedures Procedure Name Priority Date/Time Associated Diagnosis Comments DIFFERENTIAL, AUTOMATED STAT 05/20/2024 6:42 AM EDT BASIC METABOLIC PANEL STAT 05/20/2024 6:42 AM EDT CBC STAT 05/20/2024 6:42 AM EDT CBC STAT 05/20/2024 6:42 AM EDT DIFFERENTIAL, TECHNOLOGIST REVIEW Routine 05/20/2024 6:42 AM EDT MAGNESIUM STAT 05/20/2024 6:42 AM EDT XR CHEST 1 VIEW Routine 05/20/2024 6:06 AM EDT DIFFERENTIAL, AUTOMATED STAT 05/19/2024 6:18 AM EDT BASIC METABOLIC PANEL STAT 05/19/2024 6:18 AM EDT CBC STAT 05/19/2024 6:18 AM EDT CBC STAT 05/19/2024 6:18 AM EDT MAGNESIUM STAT 05/19/2024 6:18 AM EDT XR CHEST 1 VIEW Routine 05/19/2024 5:48 AM EDT DIFFERENTIAL, AUTOMATED STAT 05/18/2024 6:35 AM EDT BASIC METABOLIC PANEL STAT 05/18/2024 6:35 AM EDT CBC STAT 05/18/2024 6:35 AM EDT CBC STAT 05/18/2024 6:35 AM EDT MAGNESIUM STAT 05/18/2024 6:35 AM EDT XR CHEST 1 VIEW Routine 05/18/2024 6:19 AM EDT XR CHEST 1 VIEW Routine 05/17/2024 5:54 AM EDT Encounter for surgical aftercare following surgery on the circulatory system Other nonspecific abnormal finding of lung field Other specified symptoms and signs involving the circulatory and respiratory systems DIFFERENTIAL, AUTOMATED STAT 05/17/2024 4:35 AM EDT BASIC METABOLIC PANEL STAT 05/17/2024 4:35 AM EDT CBC STAT 05/17/2024 4:35 AM EDT CBC STAT 05/17/2024 4:35 AM EDT MAGNESIUM STAT 05/17/2024 4:35 AM EDT XR ABDOMEN 1 VIEW Routine 05/16/2024 3:0 3 PM EDT Unspecified abdominal pain HEPATIC FUNCTION PANEL Add-on 05/16/2024 2:59 PM EDT BASIC METABOLIC PANEL Routine 05/16/2024 2:59 PM EDT CBC STAT 05/16/2024 2:59 PM EDT XR CHEST 1 VIEW Routine 05/16/2024 6:11 AM EDT Encounter for surgical aftercare following surgery on the circulatory system Cardiomegaly Other nonspecific abnormal finding of lung field HC ECG TRACING ONLY Routine 05/16/2024 5 :22 AM EDT Status post surgery DIFFERENTIAL, AUTOMATED STAT 05/16/2024 3:28 AM EDT BASIC METABOLIC PANEL STAT 05/16/2024 3:28 AM EDT O2 SATURATION, VENOUS STAT 05/16/2024 3:28 AM EDT CBC STAT 05/16/2024 3:28 AM EDT CBC STAT 05/16/2024 3:28 AM EDT MAGNESIUM STAT 05/16/2024 3:28 AM EDT GLUCOSE METER, POINT OF CARE [facility] 05/16/2024 1:53 AM EDT HC ECG TRACING ONLY Routine 05/16/2024 1 2:32 AM EDT Chest pain POTASSIUM STAT 05/16/2024 12:15 AM EDT MAGNESIUM STAT 05/16/2024 12:15 AM EDT GLUCOSE METER, POINT OF CARE [facility] 05/16/2024 12:06 AM EDT GLUCOSE METER, POINT OF CARE [facility] 05/15/2024 10:02 PM EDT GLUCOSE METER, POINT OF CARE [facility] 05/15/2024 7:59 PM EDT GLUCOSE METER, POINT OF CARE [facility] 05/15/2024 6:11 PM EDT BASIC METABOLIC PANEL STAT 05/15/2024 6:07 PM EDT CBC STAT 05/15/2024 6:07 PM EDT MAGNESIUM STAT 05/15/2024 6:07 PM EDT GLUCOSE METER, POINT OF CARE [facility] 05/15/2024 4:18 PM EDT BLOOD GAS, ARTERIAL STAT 05/15/2024 4 :12 PM EDT WHOLE BLOOD PROFILE, ARTERIAL STAT 05/15/2024 2:58 PM EDT GLUCOSE METER, POINT OF CARE [facility] 05/15/2024 2:09 PM EDT WHOLE BLOOD PROFILE, ARTERIAL STAT 05/15/2024 2:03 PM EDT XR ABDOMEN 1 VIEW STAT 05/15/2024 1:1 9 PM EDT Encounter for fitting and adjustment of non-vascular catheter Encounter for fitting and adjustment of other gastrointestinal appliance and device Cardiomegaly Abnormal findings on diagnostic imaging of other specified body structures Presence of other specified devices S/P CABG x 3 Status post surgery XR CHEST 1 VIEW STAT 05/15/2024 1:19 PM EDT Encounter for fitting and adjustment of non-vascular catheter Encounter for fitting and adjustment of other gastrointestinal appliance and device Cardiomegaly Abnormal findings on diagnostic imaging of other specified body structures Presence of other specified devices S/P CABG x 3 Status post surgery HC ECG TRACING ONLY STAT 05/15/2024 1 :16 PM EDT Status post surgery GLUCOSE METER, POINT OF CARE [facility] 05/15/2024 12:36 PM EDT WHOLE BLOOD PROFILE, ARTERIAL STAT 05/15/2024 12:32 PM EDT BLOOD GAS WITH CHEMISTRY, POINT OF CARE [facility] 05/15/2024 12:30 PM EDT TEG (THOMROBOELASTOGRAPH) PANEL STAT 05/15/2024 12:29 PM EDT TEG (THROMBOELASTOGRAPH), HEPARINASE STAT 05/15/2024 12:29 PM EDT TEG (THROMBOELASTOGRAPH) STAT 05/15/2024 12:29 PM EDT BASIC METABOLIC PANEL STAT 05/15/2024 12:29 PM EDT HEPARIN, UNFRACTIONATED STAT 05/15/2024 12:29 PM EDT ANTITHROMBIN III ACTIVITY STAT 05/15/2024 12:29 PM EDT O2 SATURATION, VENOUS STAT 05/15/2024 12:29 PM EDT PT INR STAT 05/15/2024 12:29 PM EDT APTT STAT 05/15/2024 12:29 PM EDT FIBRINOGEN STAT 05/15/2024 12:29 PM EDT CBC STAT 05/15/2024 12:29 PM EDT MAGNESIUM STAT 05/15/2024 12:29 PM EDT BLOOD GAS WITH CHEMISTRY, POINT OF CARE [facility] 05/15/2024 11:30 AM EDT ACT, POINT OF CARE [facility] 05/15/2024 11 :30 AM EDT TEG (THOMROBOELASTOGRAPH) PANEL STAT 05/15/2024 11:25 AM EDT TEG (THROMBOELASTOGRAPH), HEPARINASE STAT 05/15/2024 11:25 AM EDT WHOLE BLOOD PROFILE, ARTERIAL STAT 05/15/2024 11:25 AM EDT TEG (THROMBOELASTOGRAPH) STAT 05/15/2024 11:25 AM EDT ANTITHROMBIN III ACTIVITY STAT 05/15/2024 11:25 AM EDT PT INR STAT 05/15/2024 11:25 AM EDT HGB STAT 05/15/2024 11:25 AM EDT HCT STAT 05/15/2024 11:25 AM EDT APTT STAT 05/15/2024 11:25 AM EDT FIBRINOGEN STAT 05/15/2024 11:25 AM EDT PLT STAT 05/15/2024 11:25 AM EDT BLOOD GAS WITH CHEMISTRY, POINT OF CARE [facility] 05/15/2024 10:59 AM EDT ACT, POINT OF CARE [facility] 05/15/2024 10 :59 AM EDT ACT, POINT OF CARE [facility] 05/15/2024 10 :34 AM EDT TEG (THOMROBOELASTOGRAPH) PANEL Routine 05/15/2024 10:18 AM EDT TEG (THROMBOELASTOGRAPH), HEPARINASE Routine 05/15/2024 10:18 AM EDT WHOLE BLOOD PROFILE, VENOUS Routine 05/15/2024 10:18 AM EDT BLOOD GAS, ARTERIAL Routine 05/15/2024 1 0:18 AM EDT TEG (THROMBOELASTOGRAPH) Routine 05/15/2024 10:18 AM EDT PLT Routine 05/15/2024 10:18 AM EDT FIBRINOGEN Routine 05/15/2024 10:18 AM EDT BLOOD GAS WITH CHEMISTRY, POINT OF CARE [facility] 05/15/2024 10:08 AM EDT ACT, POINT OF CARE [facility] 05/15/2024 10 :08 AM EDT ACT, POINT OF CARE [facility] 05/15/2024 9: 42 AM EDT ACT, POINT OF CARE [facility] 05/15/2024 9: 41 AM EDT BLOOD GAS WITH CHEMISTRY, POINT OF CARE [facility] 05/15/2024 8:21 AM EDT ACT, POINT OF CARE [facility] 05/15/2024 8: 20 AM EDT WHOLE BLOOD PROFILE, ARTERIAL STAT 05/15/2024 8:19 AM EDT GLUCOSE METER, POINT OF CARE [facility] 05/15/2024 6:45 AM EDT ENDO,VIDEO ASSIST HARVEST RINA 05/15/2024 6:30 AM EDT Multiple vessel coronary artery disease CABG, ARTERY-VEIN, TWO 05/15/2024 6:30 AM EDT Multiple vessel coronary artery disease CABG, ARTERIAL, SINGLE 05/15/2024 6:30 AM EDT Multiple vessel coronary artery disease BASIC METABOLIC PANEL Routine 05/15/2024 3:42 AM EDT PT INR Routine 05/15/2024 3:42 AM EDT CBC Routine 05/15/2024 3:42 AM EDT HEPARIN, UNFRACTIONATED STAT 05/14/2024 7:59 PM EDT CULTURE, URINE, QUANTITATIVE STAT 05/14/2024 2:40 PM EDT EXTRA URINE MARBLE TOP Routine 05/14/2024 2:29 PM EDT EXTRA URINE Routine 05/14/2024 2:29 PM EDT EXTRA TUBES Routine 05/14/2024 2:29 PM EDT HEPARIN, UNFRACTIONATED STAT 05/14/2024 12:27 PM EDT ECHO, COMPLETE (2D), TRANS-THORACIC Routine 05/14/2024 11:58 AM EDT Chest pain, unspecified type VASC DUPLEX CAROTID BILAT Routine 05/14/2024 7:03 AM EDT VASC VEIN MAP BYPASS GRAFT PREOP EVAL Routine 05/14/2024 7:02 AM EDT HEPARIN, UNFRACTIONATED STAT 05/14/2024 5:51 AM EDT PT INR Routine 05/14/2024 5:51 AM EDT HEMOGLOBIN A1C Routine 05/14/2024 5:50 AM EDT BASIC METABOLIC PANEL Routine 05/14/2024 5:50 AM EDT CBC Routine 05/14/2024 5:50 AM EDT LIPID PANEL WITHOUT DIRECT LDL Routine 05/14/2024 5:50 AM EDT HEPARIN, UNFRACTIONATED Routine 05/13/2024 11:36 PM EDT URINALYSIS, REFLEX TO MICROSCOPIC Routine 05/13/2024 9:22 PM EDT STAPH AUREUS PCR Routine 05/13/2024 8:05 PM EDT BLOOD GAS, ARTERIAL STAT 05/13/2024 7 :06 PM EDT ANEMIA REFLEX CHEMISTRY HOLD Routine 05/13/2024 6:54 PM EDT ANEMIA CBC Routine 05/13/2024 6:53 PM EDT DIFFERENTIAL, AUTOMATED Routine 05/13/2024 6:53 PM EDT DIFFERENTIAL, AUTOMATED Routine 05/13/2024 6:53 PM EDT HEPATIC FUNCTION PANEL Routine 05/13/2024 6:53 PM EDT ABO/RH STAT 05/13/2024 6:53 PM EDT TYPE AND SCREEN Routine 05/13/2024 6:53 PM EDT TSH Routine 05/13/2024 6:53 PM EDT HC COMPATIBILITY ELECTRONIC CROSSMATCH Routine 05/13/2024 6:20 PM EDT RETICULOCYTE PANEL Add-on 05/13/2024 4: 54 PM EDT HEMOGLOBIN A1C Add-on 05/13/2024 4:54 PM EDT HEPARIN, UNFRACTIONATED STAT 05/13/2024 4:54 PM EDT PT INR STAT 05/13/2024 4:54 PM EDT APTT STAT 05/13/2024 4:54 PM EDT CBC STAT 05/13/2024 4:54 PM EDT HC ECG TRACING ONLY Routine 05/13/2024 2 :51 PM EDT Chest pain BASIC METABOLIC PANEL Routine 05/13/2024 2:31 PM EDT IRON SCREEN, INCLUDING TIBC Add-on 05/13/2024 2:31 PM EDT CBC Routine 05/13/2024 2:31 PM EDT FERRITIN Add-on 05/13/2024 2:31 PM EDT documented in this encounter Results * DIFFERENTIAL, TECHNOLOGIST REVIEW (05/20/2024 6:42 AM EDT) WBC 7.38 4.00 - 10.80 K/uL 05/20/2024 7:45 AM EDT LAB[facility] Neutrophils % 68.0 40.0 - 75.0 % 05/20/2024 7:45 AM EDT LAB[facility] Lymphocytes % 21.0 18.0 - 42.0 % 05/20/2024 7:45 AM EDT [facility] Monocytes % 7.0 1.0 - 11.0 % 05/20/2024 7:45 AM EDT [facility] Eosinophils % 3.0 0.0 - 6.0 % 05/20/2024 7:45 AM EDT [facility] Basophils % 1.0 0.0 - 2.0 % 05/20/2024 7:45 AM EDT LAB[facility] Absolute Neutrophils 5.02 1.80 - 7.70 K/uL 05/20/2024 7:45 AM EDT LAB[facility] Absolute Lymphocytes 1.55 1.00 - 4.80 K/uL 05/20/2024 7:45 AM EDT LAB[facility]AT[facility] Absolute Monocytes 0.52 0.00 - 1.10 K/uL 05/20/2024 7:45 AM EDT LAB[facility]AT[facility] Absolute Eosinophils 0.22 0.00 - 0.70 K/uL 05/20/2024 7:45 AM EDT LAB[facility] Absolute Basophils 0.07 0.00 - 0.20 K/uL 05/20/2024 7:45 AM EDT [facility] Blood Venous blood specimen / Unknown Venipuncture / Unknown 05/20/2024 6:42 AM EDT 05/20/2024 6:44 AM EDT Gisel Escalera PA-C LAB BLOOD ORDERAB LES [facility] [address] [place] [address] * DIFFERENTIAL, AUTOMATED (05/20/2024 6:42 AM EDT) Blood Venous blood specimen / Unknown Venipuncture / Unknown 05/20/2024 6:42 AM EDT 05/20/2024 6:44 AM EDT Gisel Escalera PA-C LAB BLOOD ORDERAB LES Performing Organization Address City/[facility]/ZIP Co de Phone Number LAB[facility]ATORY [facility] [address] [place] [address] * (ABNORMAL) CBC (05/20/2024 6:42 AM EDT) WBC 7.38 4.00 - 10.80 K/uL 05/20/2024 7:02 AM EDT LAB[facility] RBC 2.80 3.85 - 5.15 M/uL 05/20/2024 7:02 AM EDT LAB[facility] HGB 8.4(L) 12.0 - 15.3 g/dL 05/20/2024 7:02 AM EDT LAB[facility] HCT 25.3(L) 36.0 - 45.2 % 05/20/2024 7:02 AM EDT [facility] MCV 90.4 81.5 - 97.5 fL 05/20/2024 7:02 AM EDT [facility] MCH 30.0 27.0 - 34.0 pg 05/20/2024 7:02 AM EDT [facility] MCHC 33.2 32.0 - 36.0 g/dL 05/20/2024 7:02 AM EDT [facility] RDW 14.2 11.5 - 15.5 % 05/20/2024 7:02 AM EDT LAB[facility] PLT 174 140 - 400 K/uL 05/20/2024 7:02 AM EDT [facility] MPV 10.1 6.6 - 11.1 fL 05/20/2024 7:02 AM EDT LABORATORY C nRBCs 0 <=0 /100 WBCs 05/20/2024 7:02 AM EDT LABORATORY C Blood Venous blood specimen / Unknown Venipuncture / Unknown 05/20/2024 6:42 AM EDT 05/20/2024 6:44 AM EDT Gisel Escalera PA-C LAB BLOOD ORDERAB LES Performing Organization Address City/[facility] Co de Phone Number LABORATORY [facility] [address] [place] [address] * MAGNESIUM (05/20/2024 6:42 AM EDT) Magnesium 2.0 1.5 - 2.6 mg/dL 05/20/2024 7:16 AM EDT LABORATORY [facility] Blood Venous blood specimen / Unknown Venipuncture / Unknown 05/20/2024 6:42 AM EDT 05/20/2024 6:44 AM EDT Gisel Escalera PA-C LAB BLOOD ORDERAB LES Performing Organization Address City/[facility]/ZIP Co de Phone Number LABORATORY [facility] [address] [place] [address] * (ABNORMAL) BASIC METABOLIC PANEL (05/20/2024 6:42 AM EDT) BUN 22(H) 6 - 20 mg/dL 05/20/2024 7:16 AM EDT LABORATORY [facility] Creatinine 1.0 0.5 - 1.0 mg/dL 05/20/2024 7:16 AM EDT [facility] Estimated Glomerular Filtration Rate 60 >=60 mL/min 05/20/2024 7:16 AM EDT LAB[facility] Comment:eGFR is calculated b ased on the CKD-EPI 2020 equation. Sodium 139 135 - 146 mmol/L 05/20/2024 7:16 AM EDT LAB[facility] Potassium 3.6 3.5 - 5.1 mmol/L 05/20/2024 7:16 AM EDT LAB[facility] Chloride 103 98 - 107 mmol/L 05/20/2024 7:16 AM EDT [facility] CO2 24 22 - 32 mmol/L 05/20/2024 7:16 AM EDT [facility] Anion Gap 12 7 - 15 mmol/L 05/20/2024 7:16 AM EDT [facility] Glucose 104 70 - 120 mg/dL 05/20/2024 7:16 AM EDT [facility] Calcium 8.9 8.4 - 10.2 mg/dL 05/20/2024 7:16 AM EDT [facility] Blood Venous blood specimen / Unknown Venipuncture / Unknown 05/20/2024 6:42 AM EDT 05/20/2024 6:44 AM EDT Gisel Escalera PA-C LAB BLOOD ORDERAB LES LAB[facility]ATORY [facility] [address] [place] [address] * XR CHEST 1 VIEW (05/20/2024 6:06 AM EDT) Anatomical Region Laterality Modality Chest Computed Radiogr aphy 05/20/2024 7:36 AM EDT Impressions 05/20/2024 7:34 AM EDT IMPRESSION No significant interval change in the appearance of the chest with enlarged cardiac silhouette and bibasilar pleural/parenchymal opacities. Narrative 05/20/2024 7:34 AM EDT EXAM XR CHEST 1 VIEW- 05/20/2024 6:06 am HISTORY follow up postop open heart COMPARISON Portable chest from 05/19/2024 TECHNIQUE A single portable semi-upright AP view of the chest was obtained at 0547 hours. FINDINGS Catheters: None Tubes: None Foreign bodies: No radiopaque foreign bodies are identified. The chest wall and cardiomediastinal structures are stable in appearance. There are bilateral pleural effusions. There are bibasilar atelectasis/infiltrates. Procedure Note Go, Amrik Cordero MD - 05/20/2024 EXAM XR CHEST 1 VIEW- 05/20/2024 6:06 am HISTORY follow up postop open heart COMPARISON Portable chest from 05/19/2024 TECHNIQUE A single portable semi-upright AP view of the chest was obtained at 0547hours. FINDINGS Catheters: None Tubes: None Foreign bodies: No radiopaque foreign bodies are identified. The chest wall and cardiomediastinal structures are stable in appearance.There are bilateral pleural effusions. There are bibasilaratelectasis/infiltrates. IMPRESSION IMPRESSION No significant interval change in the appearance of the chest withenlarged cardiac silhouette and bibasilar pleural/parenchymal opacities. Gisel Escalera PA-C RADIOLOGY ([facility]) * (ABNORMAL) DIFFERENTIAL, AUTOMATED (05/19/2024 6:18 AM EDT) WBC 8.07 4.00 - 10.80 K/uL 05/19/2024 6:39 AM EDT LAB[facility] Neutrophils % 65.7 40.0 - 75.0 % 05/19/2024 6:39 AM EDT LAB[facility] Lymphocytes % 19.6 18.0 - 42.0 % 05/19/2024 6:39 AM EDT LAB[facility] Monocytes % 11.5(H) 1.0 - 11.0 % 05/19/2024 6:39 AM EDT LAB[facility] Eosinophils % 2.2 0.0 - 6.0 % 05/19/2024 6:39 AM EDT LAB[facility] Basophils % 0.5 0.0 - 2.0 % 05/19/2024 6:39 AM EDT LAB[facility] Immature Granulocytes % 0.5 0.0 - 2.0 % 05/19/2024 6:39 AM EDT LAB[facility] Absolute Neutrophils 5.30 1.80 - 7.70 K/uL 05/19/2024 6:39 AM EDT LAB[facility] Absolute Lymphocytes 1.58 1.00 - 4.80 K/ul 05/19/2024 6:39 AM EDT LAB[facility] Absolute Monocytes 0.93 0.00 - 1.10 K/uL 05/19/2024 6:39 AM EDT LAB[facility] Absolute Eosinophils 0.18 0.00 - 0.70 K/uL 05/19/2024 6:39 AM EDT LAB[facility] Absolute Basophils 0.04 0.00 - 0.20 K/uL 05/19/2024 6:39 AM EDT LAB[facility] Absolute Immature Granulocytes 0.04 0.00 - 0.20 K/uL 05/19/2024 6:39 AM EDT LAB[facility] Blood Venous blood specimen / Unknown Venipuncture / Unknown 05/19/2024 6:18 AM EDT 05/19/2024 6:26 AM EDT Gisel Escalera PA-C LAB BLOOD ORDERAB LES [facility] [address] [place] [address] * (ABNORMAL) CBC (05/19/2024 6:18 AM EDT) WBC 8.07 4.00 - 10.80 K/uL 05/19/2024 6:39 AM EDT LAB[facility] RBC 2.74 3.85 - 5.15 M/uL 05/19/2024 6:39 AM EDT LAB[facility] HGB 8.2(L) 12.0 - 15.3 g/dL 05/19/2024 6:39 AM EDT LAB[facility] HCT 24.9(L) 36.0 - 45.2 % 05/19/2024 6:39 AM EDT LAB[facility] MCV 90.9 81.5 - 97.5 fL 05/19/2024 6:39 AM EDT LAB[facility] MCH 29.9 27.0 - 34.0 pg 05/19/2024 6:39 AM EDT LAB[facility] MCHC 32.9 32.0 - 36.0 g/dL 05/19/2024 6:39 AM EDT LAB[facility] RDW 14.1 11.5 - 15.5 % 05/19/2024 6:39 AM EDT LAB[facility] PLT 152 140 - 400 K/uL 05/19/2024 6:39 AM EDT LABORATORY [facility] MPV 10.6 6.6 - 11.1 fL 05/19/2024 6:39 AM EDT LABORATORY [facility] nRBCs 0 <=0 /100 WBCs 05/19/2024 6:39 AM EDT LABORATORY [facility] Blood Venous blood specimen / Unknown Venipuncture / Unknown 05/19/2024 6:18 AM EDT 05/19/2024 6:26 AM EDT Gisel Escalera PA-C LAB BLOOD ORDERAB LES LABORATORY [facility] [address] [place] [address] * MAGNESIUM (05/19/2024 6:18 AM EDT) Magnesium 2.1 1.5 - 2.6 mg/dL 05/19/2024 6:53 AM EDT LABORATORY [facility] Blood Venous blood specimen / Unknown Venipuncture / Unknown 05/19/2024 6:18 AM EDT 05/19/2024 6:26 AM EDT Gisel Escalera PA-C LAB BLOOD ORDERAB LES Performing Organization Address City/[facility]/ZIP Co de Phone Number LABORATORY [facility] [address] [place] [address] * (ABNORMAL) BASIC METABOLIC PANEL (05/19/2024 6:18 AM EDT) BUN 21(H) 6 - 20 mg/dL 05/19/2024 6:53 AM EDT LABORATORY [facility] Creatinine 1.0 0.5 - 1.0 mg/dL 05/19/2024 6:53 AM EDT LABORATORY [facility] Estimated Glomerular Filtration Rate 59(L) >=60 mL/min 05/19/2024 6:53 AM EDT LABORATORY [facility] Comment:eGFR is calculated b ased on the CKD-EPI 2020 equation. Sodium 140 135 - 146 mmol/L 05/19/2024 6:53 AM EDT LABORATORY [facility] Potassium 3.8 3.5 - 5.1 mmol/L 05/19/2024 6:53 AM EDT LABORATORY C Chloride 105 98 - 107 mmol/L 05/19/2024 6:53 AM EDT [facility] CO2 24 22 - 32 mmol/L 05/19/2024 6:53 AM EDT LAB[facility] Anion Gap 11 7 - 15 mmol/L 05/19/2024 6:53 AM EDT LABORATORY C Glucose 101 70 - 120 mg/dL 05/19/2024 6:53 AM EDT LABORATORY C Calcium 8.9 8.4 - 10.2 mg/dL 05/19/2024 6:53 AM EDT LABORATORY [facility] Blood Venous blood specimen / Unknown Venipuncture / Unknown 05/19/2024 6:18 AM EDT 05/19/2024 6:26 AM EDT Gisel Escalera PA-C LAB BLOOD ORDERAB LES LABORATORY [facility] [address] [place] [address] * XR CHEST 1 VIEW (05/19/2024 5:48 AM EDT) Anatomical Region Laterality Modality Chest Computed Radiogr aphy 05/19/2024 7:32 AM EDT Impressions 05/19/2024 7:29 AM EDT IMPRESSION 1. Unchanged peers opacities typical of pleural effusions and passive atelectasis. 2. Unchanged enlarged, dense cardiomediastinal silhouette. Narrative 05/19/2024 7:29 AM EDT EXAM XR CHEST 1 VIEW - 05/19/2024 5:48 am HISTORY follow up postop open heart TECHNIQUE A single frontal radiograph of the chest was obtained. COMPARISON Chest radiograph 05/18/2024. FINDINGS FOREIGN BODIES, SUPPORT TUBES, LINES, DEVICES: Intact sternal wires. Mediastinal surgical materials typical of multivessel CABG. Epicardial pacer wires. LUNGS, PLEURA: Bibasilar opacities typical of passive atelectasis and small pleural effusions, similar from most recent priors. No pneumothorax. HEART, MEDIASTINUM: The cardiomediastinal silhouette appears grossly enlarged and dense, unchanged from prior exams. OTHER: None. Procedure Note Robert Schaefer MD - 05/19/2024 EXAM XR CHEST 1 VIEW - 05/19/2024 5:48 am HISTORY follow up postop open heart TECHNIQUE A single frontal radiograph of the chest was obtained. COMPARISON Chest radiograph 05/18/2024. FINDINGS FOREIGN BODIES, SUPPORT TUBES, LINES, DEVICES: Intact sternal wires.Mediastinal surgical materials typical of multivessel CABG. Epicardialpacer wires. LUNGS, PLEURA: Bibasilar opacities typical of passive atelectasis andsmall pleural effusions, similar from most recent priors. Nopneumothorax. HEART, MEDIASTINUM: The cardiomediastinal silhouette appears grosslyenlarged and dense, unchanged from prior exams. OTHER: None. IMPRESSION IMPRESSION 1. Unchanged peers opacities typical of pleural effusions and passiveatelectasis. 2. Unchanged enlarged, dense cardiomediastinal silhouette. Gisel Escalera PA-C RADIOLOGY ([facility]) * (ABNORMAL) DIFFERENTIAL, AUTOMATED (05/18/2024 6:35 AM EDT) WBC 9.06 4.00 - 10.80 K/uL 05/18/2024 7:04 AM EDT [facility] Neutrophils % 66.9 40.0 - 75.0 % 05/18/2024 7:04 AM EDT [facility] Lymphocytes % 19.0 18.0 - 42.0 % 05/18/2024 7:04 AM EDT [facility] Monocytes % 12.4(H) 1.0 - 11.0 % 05/18/2024 7:04 AM EDT [facility] Eosinophils % 0.9 0.0 - 6.0 % 05/18/2024 7:04 AM EDT [facility] Basophils % 0.2 0.0 - 2.0 % 05/18/2024 7:04 AM EDT [facility] Immature Granulocytes % 0.6 0.0 - 2.0 % 05/18/2024 7:04 AM EDT [facility] Absolute Neutrophils 6.07 1.80 - 7.70 K/uL 05/18/2024 7:04 AM EDT [facility] Absolute Lymphocytes 1.72 1.00 - 4.80 K/ul 05/18/2024 7:04 AM EDT [facility] Absolute Monocytes 1.12(H) 0.00 - 1.10 K/uL 05/18/2024 7:04 AM EDT [facility] Absolute Eosinophils 0.08 0.00 - 0.70 K/uL 05/18/2024 7:04 AM EDT [facility] Absolute Basophils 0.02 0.00 - 0.20 K/uL 05/18/2024 7:04 AM EDT [facility] Absolute Immature Granulocytes 0.05 0.00 - 0.20 K/uL 05/18/2024 7:04 AM EDT [facility] Blood Venous blood specimen / Unknown Venipuncture / Unknown 05/18/2024 6:35 AM EDT 05/18/2024 6:51 AM EDT Gisel Escalera PA-C LAB BLOOD ORDERAB LES [facility] [address] [place] [address] * (ABNORMAL) CBC (05/18/2024 6:35 AM EDT) WBC 9.06 4.00 - 10.80 K/uL 05/18/2024 7:04 AM EDT [facility] RBC 2.76 3.85 - 5.15 M/uL 05/18/2024 7:04 AM EDT [facility] HGB 8.3(L) 12.0 - 15.3 g/dL 05/18/2024 7:04 AM EDT [facility] HCT 25.8(L) 36.0 - 45.2 % 05/18/2024 7:04 AM EDT [facility] MCV 93.5 81.5 - 97.5 fL 05/18/2024 7:04 AM EDT [facility] MCH 30.1 27.0 - 34.0 pg 05/18/2024 7:04 AM EDT LAB[facility]AT[facility] MCHC 32.2 32.0 - 36.0 g/dL 05/18/2024 7:04 AM EDT [facility] RDW 14.4 11.5 - 15.5 % 05/18/2024 7:04 AM EDT LAB[facility] PLT 96(L) 140 - 400 K/uL 05/18/2024 7:04 AM EDT LAB[facility]AT[facility] MPV 11.7 6.6 - 11.1 fL 05/18/2024 7:04 AM EDT [facility] nRBCs 0 <=0 /100 WBCs 05/18/2024 7:04 AM EDT [facility] Blood Venous blood specimen / Unknown Venipuncture / Unknown 05/18/2024 6:35 AM EDT 05/18/2024 6:51 AM EDT Gisel Escalera PA-C LAB BLOOD ORDERAB LES Performing Organization Address City/[facility]/ZIP Co de Phone Number LAB[facility]ATORY [facility] [address] [place] [address] * MAGNESIUM (05/18/2024 6:35 AM EDT) Magnesium 2.1 1.5 - 2.6 mg/dL 05/18/2024 7:23 AM EDT LAB[facility]ATORY [facility] Blood Venous blood specimen / Unknown Venipuncture / Unknown 05/18/2024 6:35 AM EDT 05/18/2024 6:51 AM EDT Gisel Escalera PA-C LAB BLOOD ORDERAB LES Performing Organization Address City/[facility]/ZIP Co de Phone Number LAB[facility]ATORY [facility] [address] [place] [address] * (ABNORMAL) BASIC METABOLIC PANEL (05/18/2024 6:35 AM EDT) BUN 20 6 - 20 mg/dL 05/18/2024 7:23 AM EDT LAB[facility] Creatinine 1.0 0.5 - 1.0 mg/dL 05/18/2024 7:23 AM EDT LAB[facility]ORY [facility] Estimated Glomerular Filtration Rate 57(L) >=60 mL/min 05/18/2024 7:23 AM EDT LAB[facility]ORY [facility] Comment:eGFR is calculated b ased on the CKD-EPI 2020 equation. Sodium 139 135 - 146 mmol/L 05/18/2024 7:23 AM EDT LABORATORY [facility] Potassium 4.0 3.5 - 5.1 mmol/L 05/18/2024 7:23 AM EDT LAB[facility]ATORY [facility] Chloride 106 98 - 107 mmol/L 05/18/2024 7:23 AM EDT LAB[facility]ATORY [facility] CO2 22 22 - 32 mmol/L 05/18/2024 7:23 AM EDT LAB[facility]ATORY [facility] Anion Gap 11 7 - 15 mmol/L 05/18/2024 7:23 AM EDT LAB[facility]ATORY [facility] Glucose 94 70 - 120 mg/dL 05/18/2024 7:23 AM EDT LAB[facility]ATORY [facility] Calcium 8.8 8.4 - 10.2 mg/dL 05/18/2024 7:23 AM EDT LABORATORY [facility] Blood Venous blood specimen / Unknown Venipuncture / Unknown 05/18/2024 6:35 AM EDT 05/18/2024 6:51 AM EDT Gisel Escalera PA-C LAB BLOOD ORDERAB LES Performing Organization Address City/State/[facility] Co de Phone Number LAB[facility]ATORY [facility] [address] [place] [address] * XR CHEST 1 VIEW (05/18/2024 6:19 AM EDT) Anatomical Region Laterality Modality Chest Computed Radiogr aphy 05/18/2024 2:22 PM EDT Impressions 05/18/2024 2:19 PM EDT IMPRESSION Postop chest as above. Narrative 05/18/2024 2:19 PM EDT EXAM XR CHEST 1 VIEW-05/18/2024 6:19 am HISTORY follow up postop open heart COMPARISON 05/17/2024 TECHNIQUE Single portable frontal view of the chest. FINDINGS Lines/Tubes: Similar right IJ sheath. Removal of the lower thoracic drains. Lungs/Pleura: Similar small pleural effusions and bibasilar opacity/atelectasis. No discernible pneumothorax. Heart/Mediastinum: Similar cardiomegaly. CABG. Bones/Soft Tissues: Median sternotomy. Upper Abdomen: Visualized portions are unremarkable. Procedure Note Edson Elizabeth MD - 05/18/2024 EXAM XR CHEST 1 VIEW-05/18/2024 6:19 am HISTORY follow up postop open heart COMPARISON 05/17/2024 TECHNIQUE Single portable frontal view of the chest. FINDINGS Lines/Tubes: Similar right IJ sheath. Removal of the lower thoracicdrains. Lungs/Pleura: Similar small pleural effusions and bibasilaropacity/atelectasis. No discernible pneumothorax. Heart/Mediastinum: Similar cardiomegaly. CABG. Bones/Soft Tissues: Median sternotomy. Upper Abdomen: Visualized portions are unremarkable. IMPRESSION IMPRESSION Postop chest as above. Gisel CORTEZ-C RADIOLOGY ([facility]) * XR CHEST 1 VIEW (05/17/2024 5:54 AM EDT) Anatomical Region Laterality Modality Chest Computed Radiogr aphy 05/17/2024 11:4 0 AM EDT Impressions 05/17/2024 11:38 AM EDT IMPRESSION Cardiomegaly with opacity in the lung diamond stable from prior examination, likely subsegmental atelectasis. Narrative 05/17/2024 11:38 AM EDT EXAM XR CHEST 1 VIEW- 05/17/2024 5:54 am HISTORY follow up postop open heart TECHNIQUE Portable semi-upright AP view of the chest was obtained. FINDINGS Catheters: Right internal jugular vascular sheath Tubes: Mediastinal left pleural drainage catheter Foreign bodies: Mediastinal sutures Cardiac silhouette is enlarged. Elongated tortuous aorta. There is increased vascularity in opacity in the lung diamond bilaterally silhouetting the diaphragms relative stable from prior examination. Procedure Note Hamida Méndez MD - 05/17/2024 EXAM XR CHEST 1 VIEW- 05/17/2024 5:54 am HISTORY follow up postop open heart TECHNIQUE Portable semi-upright AP view of the chest was obtained. FINDINGS Catheters: Right internal jugular vascular sheath Tubes: Mediastinal left pleural drainage catheter Foreign bodies: Mediastinal sutures Cardiac silhouette is enlarged. Elongated tortuous aorta. There isincreased vascularity in opacity in the lung diamond bilaterallysilhouetting the diaphragms relative stable from prior examination. IMPRESSION IMPRESSION Cardiomegaly with opacity in the lung diamond stable from priorexamination, likely subsegmental atelectasis. Gisel TIPTONC RADIOLOGY ([facility] * (ABNORMAL) DIFFERENTIAL, AUTOMATED (05/17/2024 4:35 AM EDT) WBC 8.95 4.00 - 10.80 K/uL 05/17/2024 5:10 AM EDT LABORATORY [facility] Neutrophils % 78.4(H) 40.0 - 75.0 % 05/17/2024 5:10 AM EDT LAB[facility]ATORY [facility] Lymphocytes % 10.8(L) 18.0 - 42.0 % 05/17/2024 5:10 AM EDT LAB[facility]ATORY [facility] Monocytes % 10.5 1.0 - 11.0 % 05/17/2024 5:10 AM EDT LAB[facility]ATORY [facility] Eosinophils % 0.0 0.0 - 6.0 % 05/17/2024 5:10 AM EDT LAB[facility]ATORY [facility] Basophils % 0.1 0.0 - 2.0 % 05/17/2024 5:10 AM EDT LAB[facility]ATORY [facility] Immature Granulocytes % 0.2 0.0 - 2.0 % 05/17/2024 5:10 AM EDT LABORATORY [facility] Absolute Neutrophils 7.01 1.80 - 7.70 K/uL 05/17/2024 5:10 AM EDT LABORATORY [facility] Absolute Lymphocytes 0.97(L) 1.00 - 4.80 K/ul 05/17/2024 5:10 AM EDT LABORATORY [facility] Absolute Monocytes 0.94 0.00 - 1.10 K/uL 05/17/2024 5:10 AM EDT LABORATORY [facility] Absolute Eosinophils 0.00 0.00 - 0.70 K/uL 05/17/2024 5:10 AM EDT LABORATORY [facility] Absolute Basophils 0.01 0.00 - 0.20 K/uL 05/17/2024 5:10 AM EDT LABORATORY [facility] Absolute Immature Granulocytes 0.02 0.00 - 0.20 K/uL 05/17/2024 5:10 AM EDT LAB[facility]ATORY [facility] Blood Venous blood specimen / Unknown Venipuncture / Unknown 05/17/2024 4:35 AM EDT 05/17/2024 4:44 AM EDT Gisel Escalera PA-C LAB BLOOD ORDERAB LES LAB[facility]ATORY [facility] [address] [place] [address] * (ABNORMAL) CBC (05/17/2024 4:35 AM EDT) [facility] WBC 8.95 4.00 - 10.80 K/uL 05/17/2024 5:10 AM EDT LABORATORY [facility] RBC 2.53 3.85 - 5.15 M/uL 05/17/2024 5:10 AM EDT LABORATORY [facility] HGB 7.7(L) 12.0 - 15.3 g/dL 05/17/2024 5:10 AM EDT LAB[facility]ATORY [facility] HCT 23.0(L) 36.0 - 45.2 % 05/17/2024 5:10 AM EDT LAB[facility]ATORY [facility] MCV 90.9 81.5 - 97.5 fL 05/17/2024 5:10 AM EDT LABORATORY [facility] MCH 30.4 27.0 - 34.0 pg 05/17/2024 5:10 AM EDT LABORATORY [facility] MCHC 33.5 32.0 - 36.0 g/dL 05/17/2024 5:10 AM EDT LABORATORY [facility] RDW 14.1 11.5 - 15.5 % 05/17/2024 5:10 AM EDT LABORATORY [facility] PLT 86(L) 140 - 400 K/uL 05/17/2024 5:10 AM EDT LABORATORY [facility] MPV 11.4 6.6 - 11.1 fL 05/17/2024 5:10 AM EDT LABORATORY [facility] nRBCs 0 <=0 /100 WBCs 05/17/2024 5:10 AM EDT LABORATORY [facility] Blood Venous blood specimen / Unknown Venipuncture / Unknown 05/17/2024 4:35 AM EDT 05/17/2024 4:44 AM EDT Gisel Escalera PA-C LAB BLOOD ORDERAB LES LAB[facility]ATORY [facility] [address] [place] [address] * MAGNESIUM (05/17/2024 4:35 AM EDT) Magnesium 2.1 1.5 - 2.6 mg/dL 05/17/2024 5:14 AM EDT LABORATORY [facility] Blood Venous blood specimen / Unknown Venipuncture / Unknown 05/17/2024 4:35 AM EDT 05/17/2024 4:44 AM EDT Gisel Escalera PA-C LAB BLOOD ORDERAB LES [facility] [address] [place], [place] [id number] * (ABNORMAL) BASIC METABOLIC PANEL (05/17/2024 4:35 AM EDT) BUN 16 6 - 20 mg/dL 05/17/2024 5:14 AM EDT LAB[facility]ATORY [facility] Creatinine 1.2(H) 0.5 - 1.0 mg/dL 05/17/2024 5:14 AM EDT LAB[facility]ATORY [facility] Estimated Glomerular Filtration Rate 49(L) >=60 mL/min 05/17/2024 5:14 AM EDT LABORATORY C Comment:eGFR is calculated b ased on the CKD-EPI 2020 equation. Sodium 137 135 - 146 mmol/L 05/17/2024 5:14 AM EDT LABORATORY C Potassium 4.1 3.5 - 5.1 mmol/L 05/17/2024 5:14 AM EDT LAB[facility]ATORY [facility] Chloride 105 98 - 107 mmol/L 05/17/2024 5:14 AM EDT LABORATORY C CO2 21(L) 22 - 32 mmol/L 05/17/2024 5:14 AM EDT LAB[facility]ATORY [facility] Anion Gap 11 7 - 15 mmol/L 05/17/2024 5:14 AM EDT LAB[facility]ATORY [facility] Glucose 141(H) 70 - 120 mg/dL 05/17/2024 5:14 AM EDT LAB[facility]ATORY [facility] Calcium 8.4 8.4 - 10.2 mg/dL 05/17/2024 5:14 AM EDT LAB[facility]ATORY [facility] Blood Venous blood specimen / Unknown Venipuncture / Unknown 05/17/2024 4:35 AM EDT 05/17/2024 4:44 AM EDT Gisel Escalera PA-C LAB BLOOD ORDERAB LES LAB[facility]ATORY [facility] [address] [place] [address] * XR ABDOMEN 1 VIEW (05/16/2024 3:03 PM EDT) Anatomical Region Laterality Modality Abdomen, Pelvis Computed Radiogr aphy 05/16/2024 3:11 PM EDT Impressions 05/16/2024 3:08 PM EDT IMPRESSION 1. There is no evidence of obstruction Narrative 05/16/2024 3:08 PM EDT EXAM XR ABDOMEN 1 VIEW-05/16/2024 3:03 pm HISTORY sudden onset left abdominal pain COMPARISON Abdominal films 05/15/2020 TECHNIQUE Two supine films of the abdomen were obtained portably FINDINGS Multiple drainage catheters overlie the abdomen. Partially visualized epic cardiac pacer wires as well as mediastinal sutures. Battery pack overlies the right abdomen. There is gas in large and small bowel without evidence of obstruction. There is retained oral contrast in the ascending colon. There are calcifications overlying the medial right flank likely within the kidney. Procedure Note Hamida Méndez MD - 05/16/2024 EXAM XR ABDOMEN 1 VIEW-05/16/2024 3:03 pm HISTORY sudden onset left abdominal pain COMPARISON Abdominal films 05/15/2020 TECHNIQUE Two supine films of the abdomen were obtained portably FINDINGS Multiple drainage catheters overlie the abdomen. Partially visualizedepic cardiac pacer wires as well as mediastinal sutures. Battery packoverlies the right abdomen. There is gas in large and small bowel withoutevidence of obstruction. There is retained oral contrast in the ascendingcolon. There are calcifications overlying the medial right flank likelywithin the kidney. IMPRESSION IMPRESSION 1. There is no evidence of obstruction Cornelia MALLOY RADIOLOGY ([facility]) * (ABNORMAL) HEPATIC FUNCTION PANEL (05/16/2024 2:59 PM EDT) Albumin 4.2 3.8 - 5.0 g/dL 05/16/2024 3:51 PM EDT LAB[facility]ATORY [facility] AST 29 10 - 35 U/L 05/16/2024 3:51 PM EDT LAB[facility]ATORY [facility] Alkaline Phosphatase 33(L) 35 - 130 U/L 05/16/2024 3:51 PM EDT LAB[facility]ATORY [facility] ALT 18 10 - 35 U/L 05/16/2024 3:51 PM EDT LAB[facility]ATORY [facility] Bilirubin, Total 0.8 <=1.2 mg/dL 05/16/2024 3:51 PM EDT LAB[facility]ATORY [facility] Bilirubin, Direct 0.3 0.0 - 0.3 mg/dL 05/16/2024 3:51 PM EDT LAB[facility]ORY [facility] Protein 5.7(L) 6.0 - 8.3 g/dL 05/16/2024 3:51 PM EDT LAB[facility]ATORY [facility] Blood Blood sample taken from central line / Unknown Venipuncture / Unknown 05/16/2024 2:59 PM EDT 05/16/2024 3:01 PM EDT Cornelia MALLOY LAB BLOOD ORDERABLES Performing Organization Address City/State/[facility] Co de Phone Number LABORATORY [facility] [address] [place] [address] * (ABNORMAL) BASIC METABOLIC PANEL (05/16/2024 2:59 PM EDT) BUN 13 6 - 20 mg/dL 05/16/2024 3:51 PM EDT LAB[facility]ATORY [facility] Creatinine 1.0 0.5 - 1.0 mg/dL 05/16/2024 3:51 PM EDT LAB[facility]ATORY [facility] Estimated Glomerular Filtration Rate 59(L) >=60 mL/min 05/16/2024 3:51 PM EDT LAB[facility]ATORY [facility] Comment:eGFR is calculated b ased on the CKD-EPI 2020 equation. Sodium 137 135 - 146 mmol/L 05/16/2024 3:51 PM EDT LAB[facility]ATORY [facility] Potassium 4.4 3.5 - 5.1 mmol/L 05/16/2024 3:51 PM EDT LAB[facility]ATORY [facility] Chloride 107 98 - 107 mmol/L 05/16/2024 3:51 PM EDT LAB[facility]ATORY [facility] CO2 21(L) 22 - 32 mmol/L 05/16/2024 3:51 PM EDT LAB[facility]ATORY [facility] Anion Gap 9 7 - 15 mmol/L 05/16/2024 3:51 PM EDT LABORATORY [facility] Glucose 148(H) 70 - 120 mg/dL 05/16/2024 3:51 PM EDT LABORATORY [facility] Calcium 8.5 8.4 - 10.2 mg/dL 05/16/2024 3:51 PM EDT LAB[facility]ATORY [facility] Blood Blood sample taken from central line / Unknown Venipuncture / Unknown 05/16/2024 2:59 PM EDT 05/16/2024 3:01 PM EDT Cornelia MALLOY LAB BLOOD ORDERABLES LAB[facility]ATORY [facility] [address] [place] [address] * (ABNORMAL) CBC (05/16/2024 2:59 PM EDT) WBC 10.52 4.00 - 10.80 K/uL 05/16/2024 3:33 PM EDT LAB[facility]ATORY [facility] RBC 2.64 3.85 - 5.15 M/uL 05/16/2024 3:33 PM EDT LAB[facility]ATORY [facility] HGB 7.9(L) 12.0 - 15.3 g/dL 05/16/2024 3:33 PM EDT LAB[facility]ATORY [facility] HCT 23.7(L) 36.0 - 45.2 % 05/16/2024 3:33 PM EDT LABORATORY [facility] MCV 89.8 81.5 - 97.5 fL 05/16/2024 3:33 PM EDT LAB[facility]ATORY [facility] MCH 29.9 27.0 - 34.0 pg 05/16/2024 3:33 PM EDT LAB[facility]ATORY [facility] MCHC 33.3 32.0 - 36.0 g/dL 05/16/2024 3:33 PM EDT LAB[facility]ATORY [facility] RDW 13.7 11.5 - 15.5 % 05/16/2024 3:33 PM EDT LAB[facility]ATORY [facility] PLT 107(L) 140 - 400 K/uL 05/16/2024 3:33 PM EDT LABORATORY [facility] MPV 11.2 6.6 - 11.1 fL 05/16/2024 3:33 PM EDT LABORATORY [facility] nRBCs 0 <=0 /100 WBCs 05/16/2024 3:33 PM EDT LAB[facility]ATORY [facility] Blood Blood sample taken from central line / Unknown Venipuncture / Unknown 05/16/2024 2:59 PM EDT 05/16/2024 3:01 PM EDT Cornelia Hernandez Flores MALLOY LAB BLOOD ORDERABLES LABORATORY [facility] [address] [place] [address] * XR CHEST 1 VIEW (05/16/2024 6:11 AM EDT) Anatomical Region Laterality Modality Chest Computed Radiogr aphy 05/16/2024 12:5 2 PM EDT Impressions 05/16/2024 12:49 PM EDT IMPRESSION Lines and tubes as above Cardiomegaly Opacity in the lung diamond likely subsegmental atelectasis and/or effusion. Continued follow-up recommended Narrative 05/16/2024 12:49 PM EDT EXAM XR CHEST 1 VIEW- 05/16/2024 6:11 am HISTORY follow up postop open heart COMPARISON Chest x-ray 05/15/2024 TECHNIQUE Portable semi-upright AP view of the chest was obtained. FINDINGS Catheters: Right internal jugular [place] catheter terminates in the outflow tract Tubes: Mediastinal and left pleural drainage catheters. ET tube and NG tube have been removed. Foreign bodies: Mediastinal sutures The lung volumes are low which limits the sensitivity and specificity of the examination. Cardiac silhouette is enlarged. There is increased vascularity and opacity in the lung diamond left side greater than right likely subsegmental atelectasis and or pleural effusion. Procedure Note Hamida Méndez MD - 05/16/2024 EXAM XR CHEST 1 VIEW- 05/16/2024 6:11 am HISTORY follow up postop open heart COMPARISON Chest x-ray 05/15/2024 TECHNIQUE Portable semi-upright AP view of the chest was obtained. FINDINGS Catheters: Right internal jugular [place] catheter terminates in theoutflow tract Tubes: Mediastinal and left pleural drainage catheters. ET tube and NGtube have been removed. Foreign bodies: Mediastinal sutures The lung volumes are low which limits the sensitivity and specificity ofthe examination. Cardiac silhouette is enlarged. There is increasedvascularity and opacity in the lung diamond left side greater than rightlikely subsegmental atelectasis and or pleural effusion. IMPRESSION IMPRESSION Lines and tubes as above Cardiomegaly Opacity in the lung diamond likely subsegmental atelectasis and/oreffusion. Continued follow-up recommended Gisel Escalera PA-C RADIOLOGY ([facility]) * EKG (05/16/2024 5:22 AM EDT) 05/16/2024 5:22 AM EDT Narrative Procedure Note Kale Woodruff MD - 05/16/2024 5:22 AM EDT REASON FOR STUDY: ROUTINE CONCLUSIONS: Sinus rhythm with short PA with Premature supraventricular complexes Left axis deviation Incomplete right bundle branch block Inferior infarct , age undetermined Abnormal ECG When compared with ECG of 16-May-2024 00:32, (unconfirmed) PA interval has decreased Ventricular Rate: 83 Atrial Rate: 83 PA Interval: 96 QRS Duration: 94 QT/QTc: 402/472 ms P-R-T [place]: 0 : -38 : 8 degrees Gisel Escalera PA-C EKG [facility] CARDIOLOGY * O2 SATURATION, VENOUS (05/16/2024 3:28 AM EDT) O2, Saturation, Venous 56.7 40.0 - 85.0 % 05/16/2024 3:40 AM EDT LABORATORY [facility] Blood Venous blood specimen / Unknown Venipuncture / Unknown 05/16/2024 3:28 AM EDT 05/16/2024 3:37 AM EDT Gisel Escalera PA-C LAB BLOOD ORDERAB LES LAB[facility]ORY [facility] [address] [place] [address] * (ABNORMAL) DIFFERENTIAL, AUTOMATED (05/16/2024 3:28 AM EDT) WBC 10.59 4.00 - 10.80 K/uL 05/16/2024 3:45 AM EDT LABORATORY [facility] Neutrophils % 78.1(H) 40.0 - 75.0 % 05/16/2024 3:45 AM EDT LABORATORY [facility] Lymphocytes % 12.6(L) 18.0 - 42.0 % 05/16/2024 3:45 AM EDT LABORATORY [facility] Monocytes % 8.8 1.0 - 11.0 % 05/16/2024 3:45 AM EDT LAB[facility]ATORY [facility] Eosinophils % 0.0 0.0 - 6.0 % 05/16/2024 3:45 AM EDT LABORATORY [facility] Basophils % 0.1 0.0 - 2.0 % 05/16/2024 3:45 AM EDT LABORATORY [facility] Immature Granulocytes % 0.4 0.0 - 2.0 % 05/16/2024 3:45 AM EDT LABORATORY [facility] Absolute Neutrophils 8.28(H) 1.80 - 7.70 K/uL 05/16/2024 3:45 AM EDT LABORATORY [facility] Absolute Lymphocytes 1.33 1.00 - 4.80 K/ul 05/16/2024 3:45 AM EDT LABORATORY [facility] Absolute Monocytes 0.93 0.00 - 1.10 K/uL 05/16/2024 3:45 AM EDT LABORATORY [facility] Absolute Eosinophils 0.00 0.00 - 0.70 K/uL 05/16/2024 3:45 AM EDT LABORATORY [facility] Absolute Basophils 0.01 0.00 - 0.20 K/uL 05/16/2024 3:45 AM EDT LABORATORY [facility] Absolute Immature Granulocytes 0.04 0.00 - 0.20 K/uL 05/16/2024 3:45 AM EDT LAB[facility]ATORY [facility] Blood Venous blood specimen / Unknown Venipuncture / Unknown 05/16/2024 3:28 AM EDT 05/16/2024 3:38 AM EDT Gisel Escalera PA-C LAB BLOOD ORDERAB LES LABORATORY [facility] [address] [place] [address] * (ABNORMAL) CBC (05/16/2024 3:28 AM EDT) WBC 10.59 4.00 - 10.80 K/uL 05/16/2024 3:45 AM EDT LABORATORY [facility] RBC 2.75 3.85 - 5.15 M/uL 05/16/2024 3:45 AM EDT LABORATORY [facility] HGB 8.2(L) 12.0 - 15.3 g/dL 05/16/2024 3:45 AM EDT LABORATORY [facility] HCT 25.2(L) 36.0 - 45.2 % 05/16/2024 3:45 AM EDT LABORATORY [facility] MCV 91.6 81.5 - 97.5 fL 05/16/2024 3:45 AM EDT LABORATORY [facility] MCH 29.8 27.0 - 34.0 pg 05/16/2024 3:45 AM EDT LABORATORY [facility] MCHC 32.5 32.0 - 36.0 g/dL 05/16/2024 3:45 AM EDT LABORATORY [facility] RDW 13.5 11.5 - 15.5 % 05/16/2024 3:45 AM EDT LABORATORY [facility] PLT 126(L) 140 - 400 K/uL 05/16/2024 3:45 AM EDT LABORATORY [facility] MPV 11.2 6.6 - 11.1 fL 05/16/2024 3:45 AM EDT LABORATORY [facility] nRBCs 0 <=0 /100 WBCs 05/16/2024 3:45 AM EDT LAB[facility]ATORY [facility] Blood Venous blood specimen / Unknown Venipuncture / Unknown 05/16/2024 3:28 AM EDT 05/16/2024 3:38 AM EDT Gisel Escalera PA-C LAB BLOOD ORDERAB LES LABORATORY [facility] [address] [place] [address] * MAGNESIUM (05/16/2024 3:28 AM EDT) Magnesium 2.2 1.5 - 2.6 mg/dL 05/16/2024 4:52 AM EDT LABORATORY [facility] Blood Venous blood specimen / Unknown Venipuncture / Unknown 05/16/2024 3:28 AM EDT 05/16/2024 3:38 AM EDT Gisel Escalera PA-C LAB BLOOD ORDERAB LES Performing Organization Address City/[facility]/ZIP Co de Phone Number LABORATORY [facility] [address] [place], [place] [id number] * (ABNORMAL) BASIC METABOLIC PANEL (05/16/2024 3:28 AM EDT) BUN 12 6 - 20 mg/dL 05/16/2024 4:52 AM EDT LABORATORY [facility] Creatinine 1.0 0.5 - 1.0 mg/dL 05/16/2024 4:52 AM EDT LABORATORY [facility] Estimated Glomerular Filtration Rate 63 >=60 mL/min 05/16/2024 4:52 AM EDT LABORATORY [facility] Comment:eGFR is calculated b ased on the CKD-EPI 2020 equation. Sodium 139 135 - 146 mmol/L 05/16/2024 4:52 AM EDT LABORATORY [facility] Potassium 4.1 3.5 - 5.1 mmol/L 05/16/2024 4:52 AM EDT LABORATORY [facility] Chloride 109(H) 98 - 107 mmol/L 05/16/2024 4:52 AM EDT LABORATORY [facility] CO2 20(L) 22 - 32 mmol/L 05/16/2024 4:52 AM EDT LABORATORY [facility] Anion Gap 10 7 - 15 mmol/L 05/16/2024 4:52 AM EDT LABORATORY [facility] Glucose 139(H) 70 - 120 mg/dL 05/16/2024 4:52 AM EDT LABORATORY [facility] Calcium 8.0(L) 8.4 - 10.2 mg/dL 05/16/2024 4:52 AM EDT LABORATORY [facility] Blood Venous blood specimen / Unknown Venipuncture / Unknown 05/16/2024 3:28 AM EDT 05/16/2024 3:38 AM EDT Gisel Escalera PA-C LAB BLOOD ORDERAB LES Performing Organization Address City/State/[facility] Co de Phone Number LABORATORY [facility] [address] [place] [address] * (ABNORMAL) GLUCOSE METER, POINT OF CARE (05/16/2024 1:53 AM EDT) Glucose Meter 126(H) 70 - 120 mg/dL 05/16/2024 2:53 AM EDT [facility] [employer] Blood Whole blood specimen / Unknown 05/16/2024 1:53 AM EDT 05/16/2024 2:53 AM EDT Alfonso Jay MD LAB POINT O F CARE TEST DOCKED DEVICE UNSOLICITED RESULTS Performing Organization Address [facility] de Phone Number [facility] [address] [place] [address] * EKG (05/16/2024 12:32 AM EDT) 05/16/2024 12:3 2 AM EDT Narrative Procedure Note Kale Woodruff MD - 05/16/2024 12:32 AM EDT REASON FOR STUDY: CHANGE IN RHYTHM CONCLUSIONS: Sinus rhythm with Premature atrial complexes Left axis deviation Incomplete right bundle branch block Abnormal ECG When compared with ECG of 15-May-2024 13:16, Premature atrial complexes are now Present Incomplete right bundle branch block has replaced Right bundle branchblock Borderline criteria for Lateral infarct are no longer Present Ventricular Rate: 86 Atrial Rate: 86 PA Interval: 138 QRS Duration: 96 QT/QTc: 386/461 ms P-R-T [place]: 21 : -44 : 9 degrees Rosy Bell MD EKG Performing Organization Address [facility] Co de Phone Number [facility] CARDIOLOG[facility] * MAGNESIUM (05/16/2024 12:15 AM EDT) Magnesium 2.2 1.5 - 2.6 mg/dL 05/16/2024 12:40 AM EDT LABORATORY [facility] Blood Venous blood specimen / Unknown Venipuncture / Unknown 05/16/2024 12:15 AM EDT 05/16/2024 12:19 AM EDT Gisel Robb Escalera PA-C LAB BLOOD ORDERAB LES Performing Organization Address City/[facility]/ZIP Co de Phone Number LABORATORY [facility] [address] [place] [address] * POTASSIUM (05/16/2024 12:15 AM EDT) Potassium 4.0 3.5 - 5.1 mmol/L 05/16/2024 12:40 AM EDT LABORATORY [facility] Blood Venous blood specimen / Unknown Venipuncture / Unknown 05/16/2024 12:15 AM EDT 05/16/2024 12:19 AM EDT Gisel Robb Escalera PA-C LAB BLOOD ORDERAB LES Performing Organization Address [facility] Co de Phone Number LABORATORY [facility] [address] [place] [address] * (ABNORMAL) GLUCOSE METER, POINT OF CARE (05/16/2024 12:06 AM EDT) Glucose Meter 121(H) 70 - 120 mg/dL 05/16/2024 2:52 AM EDT D[facility]sie Blood Whole blood specimen / Unknown 05/16/2024 12:06 AM EDT 05/16/2024 2:52 AM EDT Alfonso Jay MD LAB POINT O F CARE TEST DOCKED DEVICE UNSOLICITED RESULTS Performing Organization Address City/[facility]/ZIP Co de Phone Number [facility] [address] [place] [address] * GLUCOSE METER, POINT OF CARE (05/15/2024 10:02 PM EDT) Glucose Meter 118 70 - 120 mg/dL 05/16/2024 2:52 AM EDT Dibsie Blood Whole blood specimen / Unknown 05/15/2024 10:02 PM EDT 05/16/2024 2:52 AM EDT Alfonso Jay MD LAB POINT O F CARE TEST DOCKED DEVICE UNSOLICITED RESULTS [facility] [address] [place] [address] * GLUCOSE METER, POINT OF CARE (05/15/2024 7:59 PM EDT) Glucose Meter 108 70 - 120 mg/dL 05/16/2024 2:[address] [facility] Blood Whole blood specimen / Unknown 05/15/2024 7:59 PM EDT 05/16/2024 2:53 AM EDT Alfonso Jay MD LAB POINT O F CARE TEST DOCKED DEVICE UNSOLICITED RESULTS Performing Organization Address City/[facility]/ZIP Co de Phone Number [facility] [address] [place] [address] * (ABNORMAL) GLUCOSE METER, POINT OF CARE (05/15/2024 6:11 PM EDT) Glucose Meter 127(H) 70 - 120 mg/dL 05/15/2024 6:49 PM EDT [facility] Blood Whole blood specimen / Unknown 05/15/2024 6:11 PM EDT 05/15/2024 6:49 PM EDT Alfonso Jay MD LAB POINT O F CARE TEST DOCKED DEVICE UNSOLICITED RESULTS [facility] [address] [place] [address] * MAGNESIUM (05/15/2024 6:07 PM EDT) Magnesium 2.3 1.5 - 2.6 mg/dL 05/15/2024 6:44 PM EDT [facility] Blood Arterial blood specimen / Unknown Arterial Puncture / Unknown 05/15/2024 6:07 PM EDT 05/15/2024 6:12 PM EDT Gisel Escalera PA-C LAB BLOOD ORDERAB LES [facility] [address] [place] [address] * (ABNORMAL) CBC (05/15/2024 6:07 PM EDT) WBC 7.91 4.00 - 10.80 K/uL 05/15/2024 7:02 PM EDT [facility] RBC 2.88 3.85 - 5.15 M/uL 05/15/2024 7:02 PM EDT [facility] HGB 9.0(L) 12.0 - 15.3 g/dL 05/15/2024 7:02 PM EDT [facility] HCT 25.6(L) 36.0 - 45.2 % 05/15/2024 7:02 PM EDT [facility] MCV 88.9 81.5 - 97.5 fL 05/15/2024 7:02 PM EDT [facility] MCH 31.3 27.0 - 34.0 pg 05/15/2024 7:02 PM EDT [facility] MCHC 35.2 32.0 - 36.0 g/dL 05/15/2024 7:02 PM EDT [facility] RDW 13.5 11.5 - 15.5 % 05/15/2024 7:02 PM EDT [facility] PLT 97(L) 140 - 400 K/uL 05/15/2024 7:02 PM EDT [facility] MPV 11.2 6.6 - 11.1 fL 05/15/2024 7:02 PM EDT [facility] nRBCs 0 <=0 /100 WBCs 05/15/2024 7:02 PM EDT [facility] Blood Arterial blood specimen / Unknown Arterial Puncture / Unknown 05/15/2024 6:07 PM EDT 05/15/2024 6:12 PM EDT Gisel Escalera PA-C LAB BLOOD ORDERAB LES LAB[facility] [address] [place] [address] * (ABNORMAL) BASIC METABOLIC PANEL (05/15/2024 6:07 PM EDT) BUN 11 6 - 20 mg/dL 05/15/2024 6:44 PM EDT LABORATORY [facility] Creatinine 0.8 0.5 - 1.0 mg/dL 05/15/2024 6:44 PM EDT LABORATORY [facility] Estimated Glomerular Filtration Rate 81 >=60 mL/min 05/15/2024 6:44 PM EDT LABORATORY [facility] Comment:eGFR is calculated b ased on the CKD-EPI 2020 equation. Sodium 142 135 - 146 mmol/L 05/15/2024 6:44 PM EDT LABORATORY [facility] Potassium 4.3 3.5 - 5.1 mmol/L 05/15/2024 6:44 PM EDT LABORATORY [facility] Chloride 111(H) 98 - 107 mmol/L 05/15/2024 6:44 PM EDT LABORATORY C CO2 20(L) 22 - 32 mmol/L 05/15/2024 6:44 PM EDT LABORATORY [facility] Anion Gap 11 7 - 15 mmol/L 05/15/2024 6:44 PM EDT LABORATORY [facility] Glucose 139(H) 70 - 120 mg/dL 05/15/2024 6:44 PM EDT LABORATORY [facility] Calcium 8.0(L) 8.4 - 10.2 mg/dL 05/15/2024 6:44 PM EDT LABORATORY [facility] Blood Arterial blood specimen / Unknown Arterial Puncture / Unknown 05/15/2024 6:07 PM EDT 05/15/2024 6:12 PM EDT Gisel Escalera PA-C LAB BLOOD ORDERAB LES LABORATORY [facility] [address] [place] [address] * (ABNORMAL) GLUCOSE METER, POINT OF CARE (05/15/2024 4:18 PM EDT) Glucose Meter 121(H) 70 - 120 mg/dL 05/15/2024 4:25 PM EDT [facility] Blood Whole blood specimen / Unknown 05/15/2024 4:18 PM EDT 05/15/2024 4:25 PM EDT Alfonso Jay MD LAB POINT O F CARE TEST DOCKED DEVICE UNSOLICITED RESULTS [facility] [address] [place] [address] * (ABNORMAL) BLOOD GAS, ARTERIAL (05/15/2024 4:12 PM EDT) Temperature 37.0 C 05/15/2024 4:19 PM EDT LABORATORY [facility] pH, Arterial 7.393 7.350 - 7.450 units 05/15/2024 4:19 PM EDT LABORATORY [facility] pCO2, Arterial 36.1 35.0 - 45.0 mmHg 05/15/2024 4:19 PM EDT LABORATORY [facility] pO2, Arterial 120.0(H) 75.0 - 100.0 mmHg 05/15/2024 4:19 PM EDT LABORATORY [facility] Base Excess, Arterial -2.5(L) -2.0 - 2.0 mmol/L 05/15/2024 4:19 PM EDT LABORATORY [facility] HGB 8.9(L) 12.0 - 15.3 g/dL 05/15/2024 4:19 PM EDT LABORATORY [facility] Oxyhemoglobin, Arterial 99.1(H) 94.0 - 99.0 % total Hgb 05/15/2024 4:19 PM EDT LABORATORY [facility] Carboxyhemoglob in, Whole Blood 1.2 <=1.5 % total Hgb 05/15/2024 4:19 PM EDT LABORATORY [facility] Comment:Smokers: 0-9.0 % Methemoglobin, Whole Blood 0.0 <=1.5 % total Hgb 05/15/2024 4:19 PM EDT LABORATORY [facility] Reduced Hemoglobin, Arterial 0.0 0.0 - 5.0 % total Hgb 05/15/2024 4:19 PM EDT LABORATORY [facility] O2 Content, Arterial 05/15/2024 4:19 PM EDT LABORATORY [facility] Comment:Not calculated. FiO2 40 % 05/15/2024 4:19 PM EDT LAB[facility]ATORY [facility] O2 Flow, Arterial Not Provided L/min 05/15/2024 4:19 PM EDT LABORATORY [facility] Bicarbonate, Whole Blood 21.5(L) 23.0 - 31.0 mmol/L 05/15/2024 4:19 PM EDT LAB[facility]ATORY [facility] Blood Arterial blood specimen / Unknown Arterial Puncture / Unknown 05/15/2024 4:12 PM EDT 05/15/2024 4:15 PM EDT Gisel Escalera PA-C LAB BLOOD ORDERAB LES LABORATORY [facility] [address] [place] [address] * (ABNORMAL) WHOLE BLOOD PROFILE, ARTERIAL (05/15/2024 2:58 PM EDT) Temperature 37.0 C 05/15/2024 3:08 PM EDT LABORATORY [facility] pH, Arterial 7.446 7.350 - 7.450 units 05/15/2024 3:08 PM EDT LABORATORY [facility] pCO2, Arterial 35.1 35.0 - 45.0 mmHg 05/15/2024 3:08 PM EDT LAB[facility]ATORY [facility] pO2, Arterial 119.0(H) 75.0 - 100.0 mmHg 05/15/2024 3:08 PM EDT LABORATORY [facility] Base Excess, Arterial 0.4 -2.0 - 2.0 mmol/L 05/15/2024 3:08 PM EDT LABORATORY [facility] HGB 9.3(L) 12.0 - 15.3 g/dL 05/15/2024 3:08 PM EDT LABORATORY [facility] Oxyhemoglobin, Arterial 97.5 94.0 - 99.0 % total Hgb 05/15/2024 3:08 PM EDT LAB[facility]ATORY [facility] Carboxyhemoglob in, Whole Blood 1.3 <=1.5 % total Hgb 05/15/2024 3:08 PM EDT LAB[facility]ATORY [facility] Comment:Smokers: 0-9.0 % Methemoglobin, Whole Blood 0.6 <=1.5 % total Hgb 05/15/2024 3:08 PM EDT LAB[facility]ATORY [facility] Reduced Hemoglobin, Arterial 0.6 0.0 - 5.0 % total Hgb 05/15/2024 3:08 PM EDT LABORATORY [facility] O2 Content, Arterial 13.0(L) 15.0 - 24.0 %vol 05/15/2024 3:08 PM EDT LABORATORY C Potassium, Whole Blood 3.9 3.5 - 5.1 mmol/L 05/15/2024 3:08 PM EDT LAB[facility]ATORY [facility] Sodium, Whole Blood 139 135 - 146 mmol/L 05/15/2024 3:08 PM EDT LABORATORY C Chloride, Whole Blood 110(H) 98 - 107 mmol/L 05/15/2024 3:08 PM EDT LABORATORY C Calcium, Ionized, Whole Blood 1.13 1.13 - 1.32 mmol/L 05/15/2024 3:08 PM EDT LABORATORY [facility] Anion Gap, Whole Blood 5.5(L) 7.0 - 15.0 mmol/L 05/15/2024 3:08 PM EDT LABORATORY [facility] Glucose, Whole Blood 138(H) 70 - 120 mg/dL 05/15/2024 3:08 PM EDT LABORATORY C FiO2 40 % 05/15/2024 3:08 PM EDT LABORATORY [facility] O2 Flow, Arterial Not Provided L/min 05/15/2024 3:08 PM EDT LABORATORY [facility] Bicarbonate, Whole Blood 23.8 23.0 - 31.0 mmol/L 05/15/2024 3:08 PM EDT LABORATORY [facility] Blood Arterial blood specimen / Unknown Arterial Puncture / Unknown 05/15/2024 2:58 PM EDT 05/15/2024 3:01 PM EDT Gisel Escalera PA-C LAB BLOOD ORDERAB LES LABORATORY [facility] [address] [place] [address] * (ABNORMAL) GLUCOSE METER, POINT OF CARE (05/15/2024 2:09 PM EDT) [facility] Glucose Meter 139(H) 70 - 120 mg/dL 05/15/2024 2:35 PM EDT [facility] Blood Whole blood specimen / Unknown 05/15/2024 2:09 PM EDT 05/15/2024 2:35 PM EDT Alfonso Jay MD LAB POINT O F CARE TEST DOCKED DEVICE UNSOLICITED RESULTS [facility] [address] [place] [address] * (ABNORMAL) WHOLE BLOOD PROFILE, ARTERIAL (05/15/2024 2:03 PM EDT) Temperature 37.0 C 05/15/2024 2:12 PM EDT LAB[facility]ATORY [facility] pH, Arterial 7.436 7.350 - 7.450 units 05/15/2024 2:12 PM EDT LABORATORY [facility] pCO2, Arterial 28.2(L) 35.0 - 45.0 mmHg 05/15/2024 2:12 PM EDT LABORATORY [facility] pO2, Arterial 133.0(H) 75.0 - 100.0 mmHg 05/15/2024 2:12 PM EDT LABORATORY [facility] Base Excess, Arterial -4.2(L) -2.0 - 2.0 mmol/L 05/15/2024 2:12 PM EDT LABORATORY [facility] HGB 9.9(L) 12.0 - 15.3 g/dL 05/15/2024 2:12 PM EDT LABORATORY [facility] Oxyhemoglobin, Arterial 97.8 94.0 - 99.0 % total Hgb 05/15/2024 2:12 PM EDT LABORATORY [facility] Carboxyhemoglob in, Whole Blood 1.2 <=1.5 % total Hgb 05/15/2024 2:12 PM EDT LABORATORY [facility] Comment:Smokers: 0-9.0 % Methemoglobin, Whole Blood 0.6 <=1.5 % total Hgb 05/15/2024 2:12 PM EDT LABORATORY [facility] Reduced Hemoglobin, Arterial 0.4 0.0 - 5.0 % total Hgb 05/15/2024 2:12 PM EDT LAB[facility]ATORY [facility] O2 Content, Arterial 13.9(L) 15.0 - 24.0 %vol 05/15/2024 2:12 PM EDT LABORATORY [facility] Potassium, Whole Blood 4.2 3.5 - 5.1 mmol/L 05/15/2024 2:12 PM EDT LABORATORY [facility] Sodium, Whole Blood 137 135 - 146 mmol/L 05/15/2024 2:12 PM EDT LABORATORY C Chloride, Whole Blood 110(H) 98 - 107 mmol/L 05/15/2024 2:12 PM EDT LABORATORY C Calcium, Ionized, Whole Blood 1.28 1.13 - 1.32 mmol/L 05/15/2024 2:12 PM EDT LABORATORY C Anion Gap, Whole Blood 8.4 7.0 - 15.0 mmol/L 05/15/2024 2:12 PM EDT LABORATORY C Glucose, Whole Blood 149(H) 70 - 120 mg/dL 05/15/2024 2:12 PM EDT LABORATORY C FiO2 60 % 05/15/2024 2:12 PM EDT LABORATORY C O2 Flow, Arterial Not Provided L/min 05/15/2024 2:12 PM EDT LABORATORY C Bicarbonate, Whole Blood 18.6(L) 23.0 - 31.0 mmol/L 05/15/2024 2:12 PM EDT LABORATORY C Blood Arterial blood specimen / Unknown Arterial Puncture / Unknown 05/15/2024 2:03 PM EDT 05/15/2024 2:07 PM EDT Gisel Escalera PA-C LAB BLOOD ORDERAB LES LABORATORY [facility] [address] [place] [address] * XR CHEST 1 VIEW (05/15/2024 1:19 PM EDT) Anatomical Region Laterality Modality Chest Computed Radiogr aphy 05/15/2024 1:44 PM EDT Impressions 05/15/2024 1:42 PM EDT IMPRESSION Lines/Tubes: Endotracheal tube is appropriately positioned. Right IJ [place]Se[place]ity catheter terminates in the main pulmonary artery. Mediastinal drain and left- sided chest tube. Lungs/Pleura: Probable small left pleural effusion and left basilar atelectasis. No significant edema. No pneumothorax. Heart/Mediastinum: Cardiomediastinal silhouette is enlarged, stable. Interval CABG. Upper abdomen: Gastric tube terminates in the stomach, side hole below the GE junction. Nonobstructive bowel gas pattern. Narrative 05/15/2024 1:42 PM EDT EXAM XR CHEST 1 VIEW; XR ABDOMEN 1 VIEW-05/15/2024 1:19 pm HISTORY Baseline initial xray after open heart surgery; Gastric Tube placement verification COMPARISON 08/31/2021 TECHNIQUE Single frontal view of the chest and abdomen. FINDINGS See impression below. Procedure Note Morteza Marino MD - 05/15/2024 EXAM XR CHEST 1 VIEW; XR ABDOMEN 1 VIEW-05/15/2024 1:19 pm HISTORY Baseline initial xray after open heart surgery; Gastric Tube placementverification COMPARISON 08/31/2021 TECHNIQUE Single frontal view of the chest and abdomen. FINDINGS See impression below. IMPRESSION IMPRESSION Lines/Tubes: Endotracheal tube is appropriately positioned. Right [place]-Serenity catheter terminates in the main pulmonary artery. Mediastinaldrain and left- sided chest tube. Lungs/Pleura: Probable small left pleural effusion and left basilaratelectasis. No significant edema. No pneumothorax. Heart/Mediastinum: Cardiomediastinal silhouette is enlarged, stable.Interval CABG. Upper abdomen: Gastric tube terminates in the stomach, side hole below theGE junction. Nonobstructive bowel gas pattern. Gisel Escalera PA-C RADIOLOGY (RAD [facility]) * XR ABDOMEN 1 VIEW (05/15/2024 1:19 PM EDT) Anatomical Region Laterality Modality Abdomen, Pelvis Computed Radiogr aphy 05/15/2024 1:44 PM EDT Impressions 05/15/2024 1:42 PM EDT IMPRESSION Lines/Tubes: Endotracheal tube is appropriately positioned. Right IJ [place]-Serenity catheter terminates in the main pulmonary artery. Mediastinal drain and left- sided chest tube. Lungs/Pleura: Probable small left pleural effusion and left basilar atelectasis. No significant edema. No pneumothorax. Heart/Mediastinum: Cardiomediastinal silhouette is enlarged, stable. Interval CABG. Upper abdomen: Gastric tube terminates in the stomach, side hole below the GE junction. Nonobstructive bowel gas pattern. Narrative 05/15/2024 1:42 PM EDT EXAM XR CHEST 1 VIEW; XR ABDOMEN 1 VIEW-05/15/2024 1:19 pm HISTORY Baseline initial xray after open heart surgery; Gastric Tube placement verification COMPARISON 08/31/2021 TECHNIQUE Single frontal view of the chest and abdomen. FINDINGS See impression below. Procedure Note Morteza Marino MD - 05/15/2024 EXAM XR CHEST 1 VIEW; XR ABDOMEN 1 VIEW-05/15/2024 1:19 pm HISTORY Baseline initial xray after open heart surgery; Gastric Tube placementverification COMPARISON 08/31/2021 TECHNIQUE Single frontal view of the chest and abdomen. FINDINGS See impression below. IMPRESSION IMPRESSION Lines/Tubes: Endotracheal tube is appropriately positioned. Right [place]-Serenity catheter terminates in the main pulmonary artery. Mediastinaldrain and left- sided chest tube. Lungs/Pleura: Probable small left pleural effusion and left basilaratelectasis. No significant edema. No pneumothorax. Heart/Mediastinum: Cardiomediastinal silhouette is enlarged, stable.Interval CABG. Upper abdomen: Gastric tube terminates in the stomach, side hole below theGE junction. Nonobstructive bowel gas pattern. Gisel Escalera PA-C RADIOLOGY ([facility]) * EKG (05/15/2024 1:16 PM EDT) 05/15/2024 1:16 PM EDT Narrative Procedure Note Doyle Beach MD - 05/15/2024 1:16 PM EDT REASON FOR STUDY: post op CONCLUSIONS: Normal sinus rhythm with sinus arrhythmia Right bundle branch block Left axis deviation When compared with ECG of 13-May-2024 14:51, Questionable change in initial forces of Anterior-lateral leads Ventricular Rate: 70 Atrial Rate: 70 PA Interval: 194 QRS Duration: 114 QT/QTc: 448/483 ms P-R-T [place]: -17 : -66 : 41 degrees Gisel Escalera PA-C EKG [employer] * (ABNORMAL) GLUCOSE METER, POINT OF CARE (05/15/2024 12:36 PM EDT) Glucose Meter 128(H) 70 - 120 mg/dL 05/15/2024 2:35 PM EDT [facility] [employer] Blood Whole blood specimen / Unknown 05/15/2024 12:36 PM EDT 05/15/2024 2:35 PM EDT Alfonso Jay MD LAB POINT O F CARE TEST DOCKED DEVICE UNSOLICITED RESULTS [facility] [address] [place] [address] * (ABNORMAL) WHOLE BLOOD PROFILE, ARTERIAL (05/15/2024 12:32 PM EDT) Temperature 37.0 C 05/15/2024 12:42 PM EDT LABORATORY [facility] pH, Arterial 7.396 7.350 - 7.450 units 05/15/2024 12:42 PM EDT LABORATORY [facility] pCO2, Arterial 32.8(L) 35.0 - 45.0 mmHg 05/15/2024 12:42 PM EDT LABORATORY [facility] pO2, Arterial 352.0(H) 75.0 - 100.0 mmHg 05/15/2024 12:42 PM EDT LABORATORY [facility] Base Excess, Arterial -4.0(L) -2.0 - 2.0 mmol/L 05/15/2024 12:42 PM EDT LAB[facility]ATORY [facility] HGB 10.2(L) 12.0 - 15.3 g/dL 05/15/2024 12:42 PM EDT LAB[facility]ATORY [facility] Oxyhemoglobin, Arterial 97.8 94.0 - 99.0 % total Hgb 05/15/2024 12:42 PM EDT LAB[facility]ATORY [facility] Carboxyhemoglob in, Whole Blood 1.3 <=1.5 % total Hgb 05/15/2024 12:42 PM EDT LAB[facility]ATORY [facility] Comment:Smokers: 0-9.0 % Methemoglobin, Whole Blood 0.5 <=1.5 % total Hgb 05/15/2024 12:42 PM EDT LAB[facility]ATORY [facility] Reduced Hemoglobin, Arterial 0.4 0.0 - 5.0 % total Hgb 05/15/2024 12:42 PM EDT LAB[facility]ATORY [facility] O2 Content, Arterial 14.9(L) 15.0 - 24.0 %vol 05/15/2024 12:42 PM EDT LAB[facility]ATORY [facility] Potassium, Whole Blood 4.8 3.5 - 5.1 mmol/L 05/15/2024 12:42 PM EDT LAB[facility]ATORY [facility] Sodium, Whole Blood 137 135 - 146 mmol/L 05/15/2024 12:42 PM EDT LABORATORY C Chloride, Whole Blood 109(H) 98 - 107 mmol/L 05/15/2024 12:42 PM EDT LABORATORY C Calcium, Ionized, Whole Blood 1.11(L) 1.13 - 1.32 mmol/L 05/15/2024 12:42 PM EDT LABORATORY C Anion Gap, Whole Blood 8.4 7.0 - 15.0 mmol/L 05/15/2024 12:42 PM EDT LABORATORY C Glucose, Whole Blood 140(H) 70 - 120 mg/dL 05/15/2024 12:42 PM EDT LABORATORY C FiO2 100 % 05/15/2024 12:42 PM EDT LABORATORY C O2 Flow, Arterial Not Provided L/min 05/15/2024 12:42 PM EDT LABORATORY C Bicarbonate, Whole Blood 19.7(L) 23.0 - 31.0 mmol/L 05/15/2024 12:42 PM EDT LABORATORY [facility] Blood Arterial blood specimen / Unknown Arterial Puncture / Unknown 05/15/2024 12:32 PM EDT 05/15/2024 12:37 PM EDT Gisel sEcalera PA-C LAB BLOOD ORDERAB LES LABORATORY [facility] [address] [place] [address] * (ABNORMAL) BLOOD GAS WITH CHEMISTRY, POINT OF CARE (05/15/2024 12:30 PM EDT) Draw Site Arterial Draw 05/15/2024 12:36 PM EDT [facility] pH i-STAT 7.372 7.350 - 7.450 05/15/2024 12:[address] [facility] pCO2 i-STAT 35.2 35.0 - 45.0 mm Hg 05/15/2024 12:[address] [facility] pO2 i-STAT 317(H) 75 - 100 mm Hg 05/15/2024 12:[address] [facility] Base Excess i-STAT -4(L) -2 - 2 mmol/L 05/15/2024 12:[address] [facility] Bicarbonate i-STAT 20.4(L) 23.0 - 31.0 mmol/L 05/15/2024 12:[address] [facility] O2 Saturation i-STAT 100.0(H) 94.0 - 98.0 % 05/15/2024 12:[address] [facility] Glucose i-STAT 136(H) 70 - 120 mg/dL 05/15/2024 12:[address] [facility] Potassium i-STAT 4.7 3.5 - 5.1 mmol/L 05/15/2024 12:[address] [facility] Sodium i-STAT 138 135 - 146 mmol/L 05/15/2024 12:[address] [facility] Calcium Ionized i-STAT 1.12(L) 1.13 - 1.32 mmol/L 05/15/2024 12:[address] [facility] Hemoglobin i-STAT 9.5(L) 12.0 - 15.3 g/dL 05/15/2024 12:[address] [facility] Hematocrit i-STAT 28(L) 36 - 45 % 05/15/2024 12:[address] [facility] FiO2 100 % 05/15/2024 12:[address] [facility] Arterial Draw 05/15/2024 12: 30 PM EDT 05/15/2024 12:36 PM EDT Alfonso Jay MD LAB POINT O F CARE TEST DOCKED DEVICE UNSOLICITED RESULTS [facility] [address] [place] [address] * TEG (THROMBOELASTOGRAPH), HEPARINASE (05/15/2024 12:29 PM EDT) Reaction Time 4.5 2.5 - 8.3 minutes 05/15/2024 1:48 PM EDT LABORATORY [facility] Kinetics Time 1.4 0.5 - 3.7 minutes 05/15/2024 1:48 PM EDT LABORATORY [facility] Alpha Angle 69.5 46.8 - 78.4 degrees 05/15/2024 1:48 PM EDT LABORATORY [facility] Maximum Amplitude 65.3 50.6 - 72.5 mm 05/15/2024 1:48 PM EDT LABORATORY [facility] Coagulation Index 2.0 -3.0 - 3.0 05/15/2024 1:48 PM EDT LABORATORY C Percent Lysis 30 0.0 0.0 - 7.5 % 024 1:48 PM EDT LABORATORY GM Comment:This is an appended report. These results have been appended to a previously preliminary verified report. Blood Arterial blood specimen / Unknown Arterial Puncture / Unknown 05/15/2024 12:29 PM EDT 05/15/2024 12:38 PM EDT Gisel Escalera PA-C LAB BLOOD ORDERAB LES LABORATORY [facility] [address] [place] [address] * TEG (THROMBOELASTOGRAPH) (05/15/2024 12:29 PM EDT) Reaction Time 4.8 2.5 - 8.3 minutes 05/15/2024 1:48 PM EDT LABORATORY [facility] Kinetics Time 1.5 0.5 - 3.7 minutes 05/15/2024 1:48 PM EDT LABORATORY [facility] Alpha Angle 67.6 46.8 - 78.4 degrees 05/15/2024 1:48 PM EDT LABORATORY C Maximum Amplitude 64.4 50.6 - 72.5 mm 05/15/2024 1:48 PM EDT LABORATORY [facility] Coagulation Index 1.6 -3.0 - 3.0 05/15/2024 1:48 PM EDT LABORATORY C Percent Lysis 30 0.1 0.0 - 7.5 % 024 1:48 PM EDT LABORATORY [facility] Comment:This is an appended report. These results have been appended to a previously preliminary verified report. Blood Arterial blood specimen / Unknown Arterial Puncture / Unknown 05/15/2024 12:29 PM EDT 05/15/2024 12:38 PM EDT Narrative LABORATORY [facility] - 05/15/2024 1:48 PM EDT If R time > 20 minutes and no clot formed suggesting hypocoagulable state or interfering substance (anticoagulation). Consider resubmitting a new sample and/or checking PT/INR, aPTT, fibrinogen, and platelet count. Gisel Escalera PA-C LAB BLOOD ORDERAB LES Performing Organization Address City/[facility] Co de Phone Number LABORATORY [place] [address] [place], [place] [id number] * (ABNORMAL) PT INR (05/15/2024 12:29 PM EDT) Prothrombin Time 15.6(H) 11.6 - 15.2 seconds 05/15/2024 12:59 PM EDT LABORATORY [facility] INR 1.2 0.8 - 1.2 05/15/2024 12:59 PM EDT LABORATORY [facility] Blood Arterial blood specimen / Unknown Arterial Puncture / Unknown 05/15/2024 12:29 PM EDT 05/15/2024 12:38 PM EDT [facility] LABORATORY [facility] - 05/15/2024 12:59 PM EDT Warfarin Therapy INR: 2.0-3.0 conventional anticoagulation INR: 2.5-3.5 high intensity anticoagulation Gisel CORTEZ-Umer LAB BLOOD ORDERAB LES Performing Organization Address City/State/[facility] Co de Phone Number LABORATORY [address] [address] * O2 SATURATION, VENOUS (05/15/2024 12:29 PM EDT) O2, Saturation, Venous 66.2 40.0 - 85.0 % 05/15/2024 12:43 PM EDT LABORATORY [facility] Blood Blood sample taken from central line / Unknown Arterial Puncture / Unknown 05/15/2024 12:29 PM EDT 05/15/2024 12:37 PM EDT Gisel CORTEZ-C LAB BLOOD ORDERAB LES Performing Organization Address City/[facility] Co de Phone Number LABORATORY [facility] [address] [place] [address] * (ABNORMAL) MAGNESIUM (05/15/2024 12:29 PM EDT) Magnesium 2.9(H) 1.5 - 2.6 mg/dL 05/15/2024 1:15 PM EDT LABORATORY [facility] Blood Arterial blood specimen / Unknown Arterial Puncture / Unknown 05/15/2024 12:29 PM EDT 05/15/2024 12:38 PM EDT Gisel CORTEZ-C LAB BLOOD ORDERAB LES Performing Organization Address [facility] de Phone Number LABORATORY [facility] [address] [place] [address] * HEPARIN, UNFRACTIONATED (05/15/2024 12:29 PM EDT) Heparin, Unfractionated <0.10 <0.10 IU/mL 05/15/2024 12:59 PM EDT LABORATORY [facility] Comment: Unfractionated therapeutic ranges for Anti Xa activity: For Cardiac/Neurologic treatment: 0.3 to 0.6 IU/mL. For treatment of DVT or Pulmonary Embolism: 0.3 to 0.7 IU/mL. Blood Arterial blood specimen / Unknown Arterial Puncture / Unknown 05/15/2024 12:29 PM EDT 05/15/2024 12:38 PM EDT Gisel CORTEZ-C LAB BLOOD ORDERAB LES Performing Organization Address [facility] Co de Phone Number LABORATORY [facility] [address] [place] [address] * FIBRINOGEN (05/15/2024 12:29 PM EDT) Fibrinogen 218 178 - 467 mg/dL 05/15/2024 12:59 PM EDT LABORATORY [facility] Blood Arterial blood specimen / Unknown Arterial Puncture / Unknown 05/15/2024 12:29 PM EDT 05/15/2024 12:38 PM EDT Gisel Escalera PA-C LAB BLOOD ORDERAB LES LABORATORY [facility] [address] [place] [address] * (ABNORMAL) CBC (05/15/2024 12:29 PM EDT) WBC 11.03(H) 4.00 - 10.80 K/uL 05/15/2024 12:43 PM EDT LABORATORY [facility] RBC 3.32 3.85 - 5.15 M/uL 05/15/2024 12:43 PM EDT LABORATORY [facility] HGB 9.9(L) 12.0 - 15.3 g/dL 05/15/2024 12:43 PM EDT LABORATORY [facility] HCT 30.2(L) 36.0 - 45.2 % 05/15/2024 12:43 PM EDT LABORATORY [facility] MCV 91.0 81.5 - 97.5 fL 05/15/2024 12:43 PM EDT LABORATORY [facility] MCH 29.8 27.0 - 34.0 pg 05/15/2024 12:43 PM EDT LABORATORY [facility] MCHC 32.8 32.0 - 36.0 g/dL 05/15/2024 12:43 PM EDT LABORATORY [facility] RDW 13.2 11.5 - 15.5 % 05/15/2024 12:43 PM EDT LABORATORY [facility] PLT 102(L) 140 - 400 K/uL 05/15/2024 12:43 PM EDT [facility] MPV 11.0 6.6 - 11.1 fL 05/15/2024 12:43 PM EDT [facility] nRBCs 0 <=0 /100 WBCs 05/15/2024 12:43 PM EDT [facility] Blood Arterial blood specimen / Unknown Arterial Puncture / Unknown 05/15/2024 12:29 PM EDT 05/15/2024 12:38 PM EDT Gisel Escalera PA-C LAB BLOOD ORDERAB LES [facility] [address] [place] [address] * (ABNORMAL) BASIC METABOLIC PANEL (05/15/2024 12:29 PM EDT) BUN 11 6 - 20 mg/dL 05/15/2024 1:15 PM EDT LAB[facility] Creatinine 0.7 0.5 - 1.0 mg/dL 05/15/2024 1:15 PM EDT [facility] Estimated Glomerular Filtration Rate 87 >=60 mL/min 05/15/2024 1:15 PM EDT LAB[facility] Comment:eGFR is calculated b ased on the CKD-EPI 2020 equation. Sodium 138 135 - 146 mmol/L 05/15/2024 1:15 PM EDT LAB[facility] Potassium 4.9 3.5 - 5.1 mmol/L 05/15/2024 1:15 PM EDT LAB[facility] Chloride 109(H) 98 - 107 mmol/L 05/15/2024 1:15 PM EDT LAB[facility] CO2 18(L) 22 - 32 mmol/L 05/15/2024 1:15 PM EDT LAB[facility] Anion Gap 11 7 - 15 mmol/L 05/15/2024 1:15 PM EDT LAB[facility] Glucose 142(H) 70 - 120 mg/dL 05/15/2024 1:15 PM EDT LAB[facility] Calcium 7.6(L) 8.4 - 10.2 mg/dL 05/15/2024 1:15 PM EDT LAB[facility] Blood Arterial blood specimen / Unknown Arterial Puncture / Unknown 05/15/2024 12:29 PM EDT 05/15/2024 12:38 PM EDT Gisel Escalera PA-C LAB BLOOD ORDERAB LES [facility] [address] [place] [address] * (ABNORMAL) APTT (05/15/2024 12:29 PM EDT) [facility] aPTT 107(H) 21 - 38 seconds 05/15/2024 12:59 PM EDT LABORATORY [facility] Blood Arterial blood specimen / Unknown Arterial Puncture / Unknown 05/15/2024 12:29 PM EDT 05/15/2024 12:38 PM EDT Narrative LABORATORY [facility] - 05/15/2024 12:59 PM EDT Anticoagulation may affect testing. Refer to [employer] Test Catalog for a list of effects. Gisel Escalera PA-C LAB BLOOD ORDERAB LES LAB[facility] [address] [place] [address] * (ABNORMAL) ANTITHROMBIN III ACTIVITY (05/15/2024 12:29 PM EDT) [facility] Antithrombin III Activity 53(L) 80 - 120 % 05/15/2024 12:59 PM EDT LABORATORY [facility] Blood Arterial blood specimen / Unknown Arterial Puncture / Unknown 05/15/2024 12:29 PM EDT 05/15/2024 12:38 PM EDT Gisel Escalera PA-C LAB BLOOD ORDERAB LES LABORATORY [place] [address] [place] [address] * (ABNORMAL) BLOOD GAS WITH CHEMISTRY, POINT OF CARE (05/15/2024 11:30 AM EDT) [facility] Draw Site Arterial Draw 05/15/2024 11:52 AM EDT [facility] pH i-STAT 7.334(L) 7.350 - 7.450 05/15/2024 11:52 AM EDT [facility] pCO2 i-STAT 42.7 35.0 - 45.0 mm Hg 05/15/2024 11:52 AM EDT [facility] pO2 i-STAT 132(H) 75 - 100 mm Hg 05/15/2024 11:[address] [facility] Base Excess i-STAT -3(L) -2 - 2 mmol/L 05/15/2024 11:[address] [facility] [facility] Bicarbonate i-STAT 22.7(L) 23.0 - 31.0 mmol/L 05/15/2024 11:[address] [facility] O2 Saturation i-STAT 99.0(H) 94.0 - 98.0 % 05/15/2024 11:[address] [facility] Glucose i-STAT 124(H) 70 - 120 mg/dL 05/15/2024 11:[address] [facility] Potassium i-STAT 5.3(H) 3.5 - 5.1 mmol/L 05/15/2024 11:[address] [facility] Sodium i-STAT 138 135 - 146 mmol/L 05/15/2024 11:[address] [facility] Calcium Ionized i-STAT 1.24 1.13 - 1.32 mmol/L 05/15/2024 11:[address] [facility] Hemoglobin i-STAT 8.8(L) 12.0 - 15.3 g/dL 05/15/2024 11:[address] [facility] Hematocrit i-STAT 26(L) 36 - 45 % 05/15/2024 11:[address] [facility] Arterial Draw 05/15/2024 11: 30 AM EDT 05/15/2024 11:52 AM EDT Alfonso Jay MD LAB POINT O F CARE TEST DOCKED DEVICE UNSOLICITED RESULTS [facility] [address] [place] [address] * ACT, POINT OF CARE (05/15/2024 11:30 AM EDT) ACT 134 50 - 1,000 secs 05/15/2024 11:[address] [facility] Blood 05/15/2024 11:3 0 AM EDT 05/15/2024 11:[address] [facility] - 05/15/2024 11:52 AM EDT NORMAL (NON-HEPARINIZED) 74-137 SECONDS HEPARINIZED 200+ SECONDS CRITICAL GREATER THAN 1000 SECONDS Alfonso Jay MD LAB POINT O F CARE TEST DOCKED DEVICE UNSOLICITED RESULTS Performing Organization Address [facility] Co de Phone Number [facility] [address] [place] [address] * TEG (THROMBOELASTOGRAPH), HEPARINASE (05/15/2024 11:25 AM EDT) Reaction Time 6.2 2.5 - 8.3 minutes 05/15/2024 1:04 PM EDT [facility] Kinetics Time 1.9 0.5 - 3.7 minutes 05/15/2024 1:04 PM EDT LABORATORY [facility] Alpha Angle 66.2 46.8 - 78.4 degrees 05/15/2024 1:04 PM EDT LABORATORY [facility] Maximum Amplitude 55.3 50.6 - 72.5 mm 05/15/2024 1:04 PM EDT LAB[facility]ORY [facility] Coagulation Index -0.8 -3.0 - 3.0 05/15/2024 1:04 PM EDT LABORATORY [facility] Percent Lysis 30 0.1 0.0 - 7.5 % 024 1:04 PM EDT LAB[facility] Comment:This is an appended report. These results have been appended to a previously preliminary verified report. Blood Arterial blood specimen / Unknown 05/15/2024 11:25 AM EDT 05/15/2024 11:34 AM EDT Randall Lyn MD LAB BLOOD ORDERABLES Performing Organization Address [facility] Co de Phone Number LABORATORY [facility] [address] [place] [address] * TEG (THROMBOELASTOGRAPH) (05/15/2024 11:25 AM EDT) Reaction Time 5.8 2.5 - 8.3 minutes 05/15/2024 1:04 PM EDT LABORATORY [facility] Kinetics Time 2.2 0.5 - 3.7 minutes 05/15/2024 1:04 PM EDT LABORATORY [facility] Alpha Angle 61.6 46.8 - 78.4 degrees 05/15/2024 1:04 PM EDT LABORATORY [facility] Maximum Amplitude 53.9 50.6 - 72.5 mm 05/15/2024 1:04 PM EDT LABORATORY [facility] Coagulation Index -1.1 -3.0 - 3.0 05/15/2024 1:04 PM EDT LABORATORY [facility] Percent Lysis 30 0.1 0.0 - 7.5 % 024 1:04 PM EDT LABORATORY [facility] Comment:This is an appended report. These results have been appended to a previously preliminary verified report. Blood Arterial blood specimen / Unknown 05/15/2024 11:25 AM EDT 05/15/2024 11:34 AM EDT Narrative LABORATORY [facility] - 05/15/2024 1:04 PM EDT If R time > 20 minutes and no clot formed suggesting hypocoagulable state or interfering substance (anticoagulation). Consider resubmitting a new sample and/or checking PT/INR, aPTT, fibrinogen, and platelet count. Randall Lyn MD LAB BLOOD ORDERABLES Performing Organization Address City/[facility]/ZIP Co de Phone Number LABORATORY [facility] [address] [place] [address] * (ABNORMAL) HCT (05/15/2024 11:25 AM EDT) HCT 27.1(L) 36.0 - 45.2 % 05/15/2024 11:51 AM EDT LABORATORY [facility] Blood Arterial blood specimen / Unknown 05/15/2024 11:25 AM EDT 05/15/2024 11:34 AM EDT Randall Lyn MD LAB BLOOD ORDERABLES Performing Organization Address City/[facility]/ZIP Co de Phone Number LABORATORY [facility] [address] [place] [address] * (ABNORMAL) HGB (05/15/2024 11:25 AM EDT) HGB 8.8(L) 12.0 - 15.3 g/dL 05/15/2024 11:58 AM EDT LABORATORY C Blood Arterial blood specimen / Unknown 05/15/2024 11:25 AM EDT 05/15/2024 11:34 AM EDT Randall Lyn MD LAB BLOOD ORDERABLES Performing Organization Address City/[facility] Co de Phone Number LABORATORY [facility] [address] [place] [address] * (ABNORMAL) PT INR (05/15/2024 11:25 AM EDT) Prothrombin Time 17.8(H) 11.6 - 15.2 seconds 05/15/2024 12:06 PM EDT LABORATORY [facility] INR 1.5(H) 0.8 - 1.2 05/15/2024 12:06 PM EDT LABORATORY [facility] Blood Arterial blood specimen / Unknown 05/15/2024 11:25 AM EDT 05/15/2024 11:34 AM EDT Narrative LABORATORY [facility] - 05/15/2024 12:06 PM EDT Warfarin Therapy INR: 2.0-3.0 conventional anticoagulation INR: 2.5-3.5 high intensity anticoagulation Randall Lny MD LAB BLOOD ORDERABLES Performing Organization Address [facility] Co de Phone Number LABORATORY [facility] [address] [place] [address] * FIBRINOGEN (05/15/2024 11:25 AM EDT) Fibrinogen 200 178 - 467 mg/dL 05/15/2024 12:06 PM EDT LABORATORY [facility] Blood Arterial blood specimen / Unknown 05/15/2024 11:25 AM EDT 05/15/2024 11:34 AM EDT Randall Lyn MD LAB BLOOD ORDERABLES Performing Organization Address City/[facility]/ZIP Co de Phone Number LABORATORY [facility] [address] [place] [address] * (ABNORMAL) APTT (05/15/2024 11:25 AM EDT) [facility] aPTT 105(H) 21 - 38 seconds 05/15/2024 12:06 PM EDT LABORATORY [facility] Blood Arterial blood specimen / Unknown 05/15/2024 11:25 AM EDT 05/15/2024 11:34 AM EDT Narrative LABORATORY [facility] - 05/15/2024 12:06 PM EDT Anticoagulation may affect testing. Refer to [employer] Test Catalog for a list of effects. Randall Lyn MD LAB BLOOD ORDERABLES Performing Organization Address City/[facility]/ZIP Co de Phone Number LABORATORY [facility] [address] [place] [address] * (ABNORMAL) ANTITHROMBIN III ACTIVITY (05/15/2024 11:25 AM EDT) [facility] Antithrombin III Activity 48(L) 80 - 120 % 05/15/2024 12:06 PM EDT LABORATORY [facility] Blood Arterial blood specimen / Unknown 05/15/2024 11:25 AM EDT 05/15/2024 11:34 AM EDT Randall Lyn MD LAB BLOOD ORDERABLES Performing Organization Address City/[facility]/ZIP Co de Phone Number LABORATORY [facility] [address] [place] [address] * (ABNORMAL) WHOLE BLOOD PROFILE, ARTERIAL (05/15/2024 11:25 AM EDT) Temperature 37.0 C 05/15/2024 11:38 AM EDT LABORATORY [facility] pH, Arterial 7.336(L) 7.350 - 7.450 units 05/15/2024 11:38 AM EDT LABORATORY [facility] pCO2, Arterial 43.6 35.0 - 45.0 mmHg 05/15/2024 11:38 AM EDT LABORATORY [facility] pO2, Arterial 153.0(H) 75.0 - 100.0 mmHg 05/15/2024 11:38 AM EDT [facility] Base Excess, Arterial -2.5(L) -2.0 - 2.0 mmol/L 05/15/2024 11:38 AM EDT [facility] HGB 9.1(L) 12.0 - 15.3 g/dL 05/15/2024 11:38 AM EDT [facility] Oxyhemoglobin, Arterial 97.3 94.0 - 99.0 % total Hgb 05/15/2024 11:38 AM EDT [facility] Carboxyhemoglob in, Whole Blood 1.4 <=1.5 % total Hgb 05/15/2024 11:38 AM EDT [facility] Comment:Smokers: 0-9.0 % Methemoglobin, Whole Blood 1.0 <=1.5 % total Hgb 05/15/2024 11:38 AM EDT [facility] Reduced Hemoglobin, Arterial 0.3 0.0 - 5.0 % total Hgb 05/15/2024 11:38 AM EDT [facility] O2 Content, Arterial 12.8(L) 15.0 - 24.0 %vol 05/15/2024 11:38 AM EDT [facility] Potassium, Whole Blood 5.3(H) 3.5 - 5.1 mmol/L 05/15/2024 11:38 AM EDT [facility] Sodium, Whole Blood 139 135 - 146 mmol/L 05/15/2024 11:38 AM EDT [facility] Chloride, Whole Blood 107 98 - 107 mmol/L 05/15/2024 11:38 AM EDT [facility] Calcium, Ionized, Whole Blood 1.27 1.13 - 1.32 mmol/L 05/15/2024 11:38 AM EDT [facility] Anion Gap, Whole Blood 9.1 7.0 - 15.0 mmol/L 05/15/2024 11:38 AM EDT [facility] Glucose, Whole Blood 134(H) 70 - 120 mg/dL 05/15/2024 11:38 AM EDT [facility] FiO2 Not Provided % 05/15/2024 11:38 AM EDT [facility] O2 Flow, Arterial Not Provided L/min 05/15/2024 11:38 AM EDT [facility] Bicarbonate, Whole Blood 22.7(L) 23.0 - 31.0 mmol/L 05/15/2024 11:38 AM EDT [facility] Blood Arterial blood specimen / Unknown 05/15/2024 11:25 AM EDT 05/15/2024 11:34 AM EDT Randall Lyn MD LAB BLOOD ORDERABLES Performing Organization Address [facility]/ZIP Co de Phone Number LABORATORY [facility] [address] [place] [address] * (ABNORMAL) PLT (05/15/2024 11:25 AM EDT) Pathologist [facility] PLT 74(L) 140 - 400 K/uL 05/15/2024 11:51 AM EDT LABORATORY [facility] Blood Arterial blood specimen / Unknown 05/15/2024 11:25 AM EDT 05/15/2024 11:34 AM EDT Randall Lyn MD LAB BLOOD ORDERABLES Performing Organization Address [facility]/ZIP Co de Phone Number LABORATORY [facility] [address] [place] [address] * (ABNORMAL) BLOOD GAS WITH CHEMISTRY, POINT OF CARE (05/15/2024 10:59 AM EDT) [facility] Draw Site Arterial Draw 05/15/2024 11:52 AM EDT [facility] pH i-STAT 7.344(L) 7.350 - 7.450 05/15/2024 11:52 AM EDT [facility] pCO2 i-STAT 41.6 35.0 - 45.0 mm Hg 05/15/2024 11:52 AM EDT [facility] pO2 i-STAT 247(H) 75 - 100 mm Hg 05/15/2024 11:52 AM EDT [facility] Base Excess i-STAT -3(L) -2 - 2 mmol/L 05/15/2024 11:52 AM EDT [facility] Bicarbonate i-STAT 22.6(L) 23.0 - 31.0 mmol/L 05/15/2024 11:52 AM EDT [facility] O2 Saturation i-STAT 100.0(H) 94.0 - 98.0 % 05/15/2024 11:[address] [facility] Glucose i-STAT 123(H) 70 - 120 mg/dL 05/15/2024 11:[address] [facility] Potassium i-STAT 5.7(H) 3.5 - 5.1 mmol/L 05/15/2024 11:[address] [facility] Sodium i-STAT 138 135 - 146 mmol/L 05/15/2024 11:[address] [facility] Calcium Ionized i-STAT 0.98(L) 1.13 - 1.32 mmol/L 05/15/2024 11:[address] [facility] Hemoglobin i-STAT 8.2(L) 12.0 - 15.3 g/dL 05/15/2024 11:[address] [facility] Hematocrit i-STAT 24(L) 36 - 45 % 05/15/2024 11:[address] [facility] Arterial Draw 05/15/2024 10: 59 AM EDT 05/15/2024 11:52 AM EDT Alfonso Jay MD LAB POINT O F CARE TEST DOCKED DEVICE UNSOLICITED RESULTS Performing Organization Address City/State/[facility] Co de Phone Number [facility] [address] [place] [address] * ACT, POINT OF CARE (05/15/2024 10:59 AM EDT) ACT 599 50 - 1,000 secs 05/15/2024 11:[address] [facility] Blood 05/15/2024 10:5 9 AM EDT 05/15/2024 11:[address] [facility] - 05/15/2024 11:52 AM EDT NORMAL (NON-HEPARINIZED) 74-137 SECONDS HEPARINIZED 200+ SECONDS CRITICAL GREATER THAN 1000 SECONDS Alfonso Jay MD LAB POINT O F CARE TEST DOCKED DEVICE UNSOLICITED RESULTS Performing Organization Address City/[facility] Co de Phone Number [facility] [address] [place] [address] * ACT, POINT OF CARE (05/15/2024 10:34 AM EDT) ACT 507 50 - 1,000 secs 05/15/2024 11:52 AM EDT [facility] Blood 05/15/2024 10:3 4 AM EDT 05/15/2024 11:[address] [facility] - 05/15/2024 11:52 AM EDT NORMAL (NON-HEPARINIZED) 74-137 SECONDS HEPARINIZED 200+ SECONDS CRITICAL GREATER THAN 1000 SECONDS Alfonso Jay MD LAB POINT O F CARE TEST DOCKED DEVICE UNSOLICITED RESULTS Performing Organization Address [facility] de Phone Number [facility] [address] [place] [address] * TEG (THROMBOELASTOGRAPH), HEPARINASE (05/15/2024 10:18 AM EDT) Reaction Time 6.7 2.5 - 8.3 minutes 05/15/2024 11:47 AM EDT LABORATORY C Kinetics Time 2.0 0.5 - 3.7 minutes 05/15/2024 11:47 AM EDT LABORATORY C Alpha Angle 62.9 46.8 - 78.4 degrees 05/15/2024 11:47 AM EDT LABORATORY [facility] Maximum Amplitude 55.8 50.6 - 72.5 mm 05/15/2024 11:47 AM EDT LABORATORY [facility] Coagulation Index -1.3 -3.0 - 3.0 05/15/2024 11:47 AM EDT LABORATORY C Percent Lysis 30 0.0 0.0 - 7.5 % 024 11:47 AM EDT LABORATORY [facility] Comment:This is an appended report. These results have been appended to a previously preliminary verified report. Blood Venous blood specimen / Unknown Venipuncture / Unknown 05/15/2024 10:18 AM EDT 05/15/2024 10:24 AM EDT Alfonso Jay MD LAB BLOOD O RDERABLES Performing Organization Address [facility] Co de Phone Number LABORATORY [facility] [address] [place] [address] * (ABNORMAL) TEG (THROMBOELASTOGRAPH) (05/15/2024 10:18 AM EDT) Reaction Time >20.0(H) 2.5 - 8.3 minutes 05/15/2024 11:20 AM EDT LABORATORY [facility] Blood Venous blood specimen / Unknown Venipuncture / Unknown 05/15/2024 10:18 AM EDT 05/15/2024 10:24 AM EDT Narrative LABORATORY [facility] - 05/15/2024 11:20 AM EDT If R time > 20 minutes and no clot formed suggesting hypocoagulable state or interfering substance (anticoagulation). Consider resubmitting a new sample and/or checking PT/INR, aPTT, fibrinogen, and platelet count. If R time > 20 minutes and no clot formed suggesting hypocoagulable state or interfering substance (anticoagulation). Consider resubmitting a new sample and/or checking PT/INR, aPTT, fibrinogen, and platelet count. Alfonso Jay MD LAB BLOOD O RDERABLES Performing Organization Address [facility] de Phone Number LABORATORY [facility] [address] [place] [address] * (ABNORMAL) WHOLE BLOOD PROFILE, VENOUS (05/15/2024 10:18 AM EDT) Temperature 37.0 C 05/15/2024 10:29 AM EDT LABORATORY [facility] pH, Venous 7.378 7.320 - 7.430 units 05/15/2024 10:29 AM EDT LABORATORY [facility] pCO2, Venous 42.0 40.0 - 60.0 mmHg 05/15/2024 10:29 AM EDT LABORATORY [facility] pO2, Venous 52.2(H) 25.0 - 50.0 mmHg 05/15/2024 10:29 AM EDT LABORATORY [facility] Base Excess, Venous -0.4 -2.0 - 2.0 mmol/L 05/15/2024 10:29 AM EDT [facility] HGB 8.3(L) 12.0 - 15.3 g/dL 05/15/2024 10:29 AM EDT [facility] Oxyhemoglobin, Venous 84.8 40.0 - 85.0 % total Hgb 05/15/2024 10:29 AM EDT [facility] Carboxyhemoglobi n, Whole Blood 1.4 <=1.5 % total Hgb 05/15/2024 10:29 AM EDT [facility] Comment:Smokers: 0-9.0 % Methemoglobin, Whole Blood 0.9 <=1.5 % total Hgb 05/15/2024 10:29 AM EDT [facility] Reduced Hemoglobin, Venous 12.9 % total Hgb 05/15/2024 10:29 AM EDT [facility] O2 Content, Venous 10.0 7.0 - 18.0 %vol 05/15/2024 10:29 AM EDT [facility] Potassium, Whole Blood 5.3(H) 3.5 - 5.1 mmol/L 05/15/2024 10:29 AM EDT [facility] Sodium, Whole Blood 138 135 - 146 mmol/L 05/15/2024 10:29 AM EDT [facility] Chloride, Whole Blood 105 98 - 107 mmol/L 05/15/2024 10:29 AM EDT [facility] Calcium, Ionized, Whole Blood 0.96(L) 1.13 - 1.32 mmol/L 05/15/2024 10:29 AM EDT [facility] Anion Gap, Whole Blood 8.6 7.0 - 15.0 mmol/L 05/15/2024 10:29 AM EDT [facility] Glucose, Whole Blood 110 70 - 120 mg/dL 05/15/2024 10:29 AM EDT [facility] Bicarbonate, Whole Blood 24.2 23.0 - 31.0 mmol/L 05/15/2024 10:29 AM EDT LABORATORY C Blood Venous blood specimen / Unknown Venipuncture / Unknown 05/15/2024 10:18 AM EDT 05/15/2024 10:24 AM EDT Alfonso Jay MD LAB BLOOD O RDERABLES [facility] [address] [place] [address] * (ABNORMAL) BLOOD GAS, ARTERIAL (05/15/2024 10:18 AM EDT) Temperature 37.0 C 05/15/2024 10:29 AM EDT [facility] pH, Arterial 7.411 7.350 - 7.450 units 05/15/2024 10:29 AM EDT [facility] pCO2, Arterial 37.7 35.0 - 45.0 mmHg 05/15/2024 10:29 AM EDT [facility] pO2, Arterial 236.0(H) 75.0 - 100.0 mmHg 05/15/2024 10:29 AM EDT [facility] Base Excess, Arterial -0.5 -2.0 - 2.0 mmol/L 05/15/2024 10:29 AM EDT [facility] HGB 8.0(L) 12.0 - 15.3 g/dL 05/15/2024 10:29 AM EDT [facility] Oxyhemoglobin, Arterial 97.1 94.0 - 99.0 % total Hgb 05/15/2024 10:29 AM EDT [facility] Carboxyhemoglob in, Whole Blood 1.5 <=1.5 % total Hgb 05/15/2024 10:29 AM EDT [facility] Comment:Smokers: 0-9.0 % Methemoglobin, Whole Blood 1.2 <=1.5 % total Hgb 05/15/2024 10:29 AM EDT [facility] Reduced Hemoglobin, Arterial 0.2 0.0 - 5.0 % total Hgb 05/15/2024 10:29 AM EDT [facility] O2 Content, Arterial 11.5(L) 15.0 - 24.0 %vol 05/15/2024 10:29 AM EDT [facility] FiO2 Not Provided % 05/15/2024 10:29 AM EDT [facility] O2 Flow, Arterial Not Provided L/min 05/15/2024 10:29 AM EDT [facility] Bicarbonate, Whole Blood 23.5 23.0 - 31.0 mmol/L 05/15/2024 10:29 AM EDT LABORATORY [facility] Blood Arterial blood specimen / Unknown Arterial Puncture / Unknown 05/15/2024 10:18 AM EDT 05/15/2024 10:24 AM EDT Alfonso Jay MD LAB BLOOD O RDERABLES Performing Organization Address City/[facility]/ZIP Co de Phone Number LABORATORY [facility] [address] [place] [address] * (ABNORMAL) PLT (05/15/2024 10:18 AM EDT) PLT 95(L) 140 - 400 K/uL 05/15/2024 11:38 AM EDT LABORATORY [facility] Blood Venous blood specimen / Unknown Venipuncture / Unknown 05/15/2024 10:18 AM EDT 05/15/2024 10:24 AM EDT Alfonso Jay MD LAB BLOOD O RDERASHREYAS Performing Organization Address [facility] Co de Phone Number LABORATORY [facility] [address] [place] [address] * (ABNORMAL) FIBRINOGEN (05/15/2024 10:18 AM EDT) Fibrinogen 169(L) 178 - 467 mg/dL 05/15/2024 11:04 AM EDT LABORATORY [facility] Blood Venous blood specimen / Unknown Venipuncture / Unknown 05/15/2024 10:18 AM EDT 05/15/2024 10:24 AM EDT Alfonso Jay MD LAB BLOOD O RDERABLES Performing Organization Address [facility]/ZIP Co de Phone Number LABORATORY [facility] [address] [place] [address] * ACT, POINT OF CARE (05/15/2024 10:08 AM EDT) ACT 666 50 - 1,000 secs 05/15/2024 11:52 AM EDT [facility] Blood 05/15/2024 10:0 8 AM EDT 05/15/2024 11:[address] [facility] - 05/15/2024 11:52 AM EDT NORMAL (NON-HEPARINIZED) 74-137 SECONDS HEPARINIZED 200+ SECONDS CRITICAL GREATER THAN 1000 SECONDS Alfonso Jay MD LAB POINT O F CARE TEST DOCKED DEVICE UNSOLICITED RESULTS [facility] [address] [place] [address] * (ABNORMAL) BLOOD GAS WITH CHEMISTRY, POINT OF CARE (05/15/2024 10:08 AM EDT) Draw Site Arterial Draw 05/15/2024 11:47 AM EDT [facility] pH i-STAT 7.309(L) 7.350 - 7.450 05/15/2024 11:47 AM EDT [facility] pCO2 i-STAT 42.1 35.0 - 45.0 mm Hg 05/15/2024 11:47 AM EDT [facility] pO2 i-STAT 295(H) 75 - 100 mm Hg 05/15/2024 11:47 AM EDT [facility] Base Excess i-STAT -5(L) -2 - 2 mmol/L 05/15/2024 11:47 AM T [facility] Bicarbonate i-STAT 21.1(L) 23.0 - 31.0 mmol/L 05/15/2024 11:47 AM EDT [facility] O2 Saturation i-STAT 100.0(H) 94.0 - 98.0 % 05/15/2024 11:47 AM EDT [facility] Glucose i-STAT 107 70 - 120 mg/dL 05/15/2024 11:47 AM EDT [facility] Potassium i-STAT 4.9 3.5 - 5.1 mmol/L 05/15/2024 11:47 AM EDT [facility] Sodium i-STAT 137 135 - 146 mmol/L 05/15/2024 11:47 AM EDT [facility] Calcium Ionized i-STAT 1.00(L) 1.13 - 1.32 mmol/L 05/15/2024 11:47 AM EDT [facility] Hemoglobin i-STAT 8.8(L) 12.0 - 15.3 g/dL 05/15/2024 11:47 AM EDT [facility] Hematocrit i-STAT 26(L) 36 - 45 % 05/15/2024 11:47 AM EDT [facility] Arterial Draw 05/15/2024 10: 08 AM EDT 05/15/2024 11:47 AM EDT Alfonso Jay MD LAB POINT O F CARE TEST DOCKED DEVICE UNSOLICITED RESULTS Performing Organization Address City/[facility]/ZIP Co de Phone Number [facility] [address] [place] [address] * ACT, POINT OF CARE (05/15/2024 9:42 AM EDT) ACT 568 50 - 1,000 secs 05/15/2024 11:52 AM EDT [facility] Blood 05/15/2024 9:42 AM EDT 05/15/2024 11:52 AM EDT [facility] - 05/15/2024 11:52 AM EDT NORMAL (NON-HEPARINIZED) 74-137 SECONDS HEPARINIZED 200+ SECONDS CRITICAL GREATER THAN 1000 SECONDS Alfonso Jay MD LAB POINT O F CARE TEST DOCKED DEVICE UNSOLICITED RESULTS [facility] [address] [place] [address] * ACT, POINT OF CARE (05/15/2024 9:41 AM EDT) ACT 605 50 - 1,000 secs 05/15/2024 11:52 AM EDT [facility] Blood 05/15/2024 9:41 AM EDT 05/15/2024 11:52 AM EDT [facility] - 05/15/2024 11:52 AM EDT NORMAL (NON-HEPARINIZED) 74-137 SECONDS HEPARINIZED 200+ SECONDS CRITICAL GREATER THAN 1000 SECONDS Alfonso Jay MD LAB POINT O F CARE TEST DOCKED DEVICE UNSOLICITED RESULTS [facility] [address] [place] [address] * (ABNORMAL) BLOOD GAS WITH CHEMISTRY, POINT OF CARE (05/15/2024 8:21 AM EDT) Draw Site Arterial Draw 05/15/2024 11:[address] [facility] pH i-STAT 7.321(L) 7.350 - 7.450 05/15/2024 11:[address] [facility] pCO2 i-STAT 41.7 35.0 - 45.0 mm Hg 05/15/2024 11:[address] [facility] pO2 i-STAT 251(H) 75 - 100 mm Hg 05/15/2024 11:52 AM EDT [facility] [employer] [facility] Base Excess i-STAT -4(L) -2 - 2 mmol/L 05/15/2024 11:[address] [facility] Bicarbonate i-STAT 21.5(L) 23.0 - 31.0 mmol/L 05/15/2024 11:[address] [facility] O2 Saturation i-STAT 100.0(H) 94.0 - 98.0 % 05/15/2024 11:52 AM EDT [facility] [employer] [facility] Glucose i-STAT 104 70 - 120 mg/dL 05/15/2024 11:52 AM EDT [facility] [employer] [facility] Potassium i-STAT 4.1 3.5 - 5.1 mmol/L 05/15/2024 11:52 AM EDT [facility] [employer] [facility] Sodium i-STAT 139 135 - 146 mmol/L 05/15/2024 11:[address] [facility] Calcium Ionized i-STAT 1.19 1.13 - 1.32 mmol/L 05/15/2024 11:[address] [facility] Hemoglobin i-STAT 11.6(L) 12.0 - 15.3 g/dL 05/15/2024 11:52 AM EDT [facility] Hematocrit i-STAT 34(L) 36 - 45 % 05/15/2024 11:52 AM EDT [facility] Arterial Draw 05/15/2024 8:2 1 AM EDT 05/15/2024 11:52 AM EDT Alfonso Jay MD LAB POINT O F CARE TEST DOCKED DEVICE UNSOLICITED RESULTS Performing Organization Address [facility] Co de Phone Number [facility] [address] [place] [address] * ACT, POINT OF CARE (05/15/2024 8:20 AM EDT) Pathologist [facility] ACT 122 50 - 1,000 secs 05/15/2024 11:52 AM EDT [employer] [facility] Blood 05/15/2024 8:20 AM EDT 05/15/2024 11:52 AM EDT Narrative Compliance 11[facility] - 05/15/2024 11:52 AM EDT NORMAL (NON-HEPARINIZED) 74-137 SECONDS HEPARINIZED 200+ SECONDS CRITICAL GREATER THAN 1000 SECONDS Alfonso Jay MD LAB POINT O F CARE TEST DOCKED DEVICE UNSOLICITED RESULTS Performing Organization Address [facility] de Phone Number [facility] [address] [place] [address] * (ABNORMAL) WHOLE BLOOD PROFILE, ARTERIAL (05/15/2024 8:19 AM EDT) Temperature 37.0 C 05/15/2024 8:27 AM EDT LAB[facility]ORY [facility] pH, Arterial 7.348(L) 7.350 - 7.450 units 05/15/2024 8:27 AM EDT [facility] pCO2, Arterial 41.5 35.0 - 45.0 mmHg 05/15/2024 8:27 AM EDT [facility] pO2, Arterial 247.0(H) 75.0 - 100.0 mmHg 05/15/2024 8:27 AM EDT [facility] Base Excess, Arterial -2.7(L) -2.0 - 2.0 mmol/L 05/15/2024 8:27 AM EDT LABORATORY C HGB 12.2 12.0 - 15.3 g/dL 05/15/2024 8:27 AM EDT LABORATORY C Oxyhemoglobin, Arterial 97.9 94.0 - 99.0 % total Hgb 05/15/2024 8:27 AM EDT [facility] Carboxyhemoglob in, Whole Blood 1.4 <=1.5 % total Hgb 05/15/2024 8:27 AM EDT [facility] Comment:Smokers: 0-9.0 % Methemoglobin, Whole Blood 0.7 <=1.5 % total Hgb 05/15/2024 8:27 AM EDT [facility] Reduced Hemoglobin, Arterial 0.0 0.0 - 5.0 % total Hgb 05/15/2024 8:27 AM EDT [facility] O2 Content, Arterial 17.4 15.0 - 24.0 %vol 05/15/2024 8:27 AM EDT LABORATORY C Potassium, Whole Blood 4.1 3.5 - 5.1 mmol/L 05/15/2024 8:27 AM EDT LABORATORY C Sodium, Whole Blood 138 135 - 146 mmol/L 05/15/2024 8:27 AM EDT LABORATORY C Chloride, Whole Blood 111(H) 98 - 107 mmol/L 05/15/2024 8:27 AM EDT LABORATORY C Calcium, Ionized, Whole Blood 1.15 1.13 - 1.32 mmol/L 05/15/2024 8:27 AM EDT LABORATORY C Anion Gap, Whole Blood 5.4(L) 7.0 - 15.0 mmol/L 05/15/2024 8:27 AM EDT LABORATORY C Glucose, Whole Blood 114 70 - 120 mg/dL 05/15/2024 8:27 AM EDT LABORATORY C FiO2 Not Provided % 05/15/2024 8:27 AM EDT LABORATORY C O2 Flow, Arterial Not Provided L/min 05/15/2024 8:27 AM EDT LABORATORY [facility] Bicarbonate, Whole Blood 22.2(L) 23.0 - 31.0 mmol/L 05/15/2024 8:27 AM EDT LABORATORY [facility] Blood Arterial blood specimen / Unknown 05/15/2024 8:19 AM EDT 05/15/2024 8:24 AM EDT Randall Lyn MD LAB BLOOD ORDERABLES Performing Organization Address City/[facility]/ZIP Co de Phone Number LABORATORY [facility] [address] [place] [address] * GLUCOSE METER, POINT OF CARE (05/15/2024 6:45 AM EDT) Glucose Meter 89 70 - 120 mg/dL 05/15/2024 6:[address] [facility] Blood Whole blood specimen / Unknown 05/15/2024 6:45 AM EDT 05/15/2024 6:49 AM EDT Alfonso Jay MD LAB POINT O F CARE TEST DOCKED DEVICE UNSOLICITED RESULTS Performing Organization Address [facility] Co de Phone Number [facility] [address] [place] [address] * PT INR (05/15/2024 3:42 AM EDT) Prothrombin Time 13.3 11.6 - 15.2 seconds 05/15/2024 4:20 AM EDT LABORATORY [facility] INR 1.0 0.8 - 1.2 05/15/2024 4:20 AM EDT LABORATORY [facility] Blood Venous blood specimen / Unknown Venipuncture / Unknown 05/15/2024 3:42 AM EDT 05/15/2024 3:55 AM EDT Narrative LABORATORY C - 05/15/2024 4:20 AM EDT Warfarin Therapy INR: 2.0-3.0 conventional anticoagulation INR: 2.5-3.5 high intensity anticoagulation Forrest Chau MD LAB BLOOD ORDERABLES Performing Organization Address City/[facility] Co de Phone Number LABORATORY [facility] [address] [place] [address] * (ABNORMAL) BASIC METABOLIC PANEL (05/15/2024 3:42 AM EDT) BUN 16 6 - 20 mg/dL 05/15/2024 4:25 AM EDT [facility] Creatinine 1.0 0.5 - 1.0 mg/dL 05/15/2024 4:25 AM EDT [facility] Estimated Glomerular Filtration Rate 64 >=60 mL/min 05/15/2024 4:25 AM EDT [facility] Comment:eGFR is calculated b ased on the CKD-EPI 2020 equation. Sodium 137 135 - 146 mmol/L 05/15/2024 4:25 AM EDT [facility] Potassium 3.6 3.5 - 5.1 mmol/L 05/15/2024 4:25 AM EDT [facility] Comment:Result may be falsel y elevated due to hemolysis. Chloride 105 98 - 107 mmol/L 05/15/2024 4:25 AM EDT [facility] CO2 19(L) 22 - 32 mmol/L 05/15/2024 4:25 AM EDT LABORATORY C Anion Gap 13 7 - 15 mmol/L 05/15/2024 4:25 AM EDT LABORATORY C Glucose 101 70 - 120 mg/dL 05/15/2024 4:25 AM EDT [facility] Calcium 9.2 8.4 - 10.2 mg/dL 05/15/2024 4:25 AM EDT LABORATORY [facility] Blood Venous blood specimen / Unknown Venipuncture / Unknown 05/15/2024 3:42 AM EDT 05/15/2024 3:55 AM EDT Forrest Chau MD LAB BLOOD ORDERABLES LABORATORY [facility] [address] [place], [place] [id number] * CBC (05/15/2024 3:42 AM EDT) WBC 7.77 4.00 - 10.80 K/uL 05/15/2024 4:09 AM EDT [facility] RBC 4.74 3.85 - 5.15 M/uL 05/15/2024 4:09 AM EDT [facility] HGB 14.4 12.0 - 15.3 g/dL 05/15/2024 4:09 AM EDT LABORATORY [facility] HCT 41.9 36.0 - 45.2 % 05/15/2024 4:09 AM EDT LABORATORY [facility] MCV 88.4 81.5 - 97.5 fL 05/15/2024 4:09 AM EDT LABORATORY [facility] MCH 30.4 27.0 - 34.0 pg 05/15/2024 4:09 AM EDT LABORATORY [facility] MCHC 34.4 32.0 - 36.0 g/dL 05/15/2024 4:09 AM EDT LABORATORY [facility] RDW 13.1 11.5 - 15.5 % 05/15/2024 4:09 AM EDT LABORATORY [facility] PLT 163 140 - 400 K/uL 05/15/2024 4:09 AM EDT LABORATORY [facility] MPV 10.8 6.6 - 11.1 fL 05/15/2024 4:09 AM EDT LABORATORY [facility] nRBCs 0 <=0 /100 WBCs 05/15/2024 4:09 AM EDT LABORATORY [facility] Blood Venous blood specimen / Unknown Venipuncture / Unknown 05/15/2024 3:42 AM EDT 05/15/2024 3:55 AM EDT Forrest Chau MD LAB BLOOD ORDERABLES LABORATORY [facility] [address] [place] [address] * (ABNORMAL) HEPARIN, UNFRACTIONATED (05/14/2024 7:59 PM EDT) [facility] Heparin, Unfractionated 0.41(H) <0.10 IU/mL 05/14/2024 8:41 PM EDT LABORATORY [facility] Comment: Unfractionated therapeutic ranges for Anti Xa activity: For Cardiac/Neurologic treatment: 0.3 to 0.6 IU/mL. For treatment of DVT or Pulmonary Embolism: 0.3 to 0.7 IU/mL. Blood Venous blood specimen / Unknown Venipuncture / Unknown 05/14/2024 7:59 PM EDT 05/14/2024 8:21 PM EDT Facundo Gee MD LAB BLOOD ORDERABL ES Performing Organization Address [facility] Co de Phone Number LABORATORY [facility] [address] [place] [address] * CULTURE, URINE, QUANTITATIVE (05/14/2024 2:40 PM EDT) Culture Growth No significant growth 05/15/2024 10:37 AM EDT LABORATORY [facility] Urine Urine specimen obtained by clean catch procedure / Unknown Non-blood Collection / Unknown 05/14/2024 2:40 PM EDT 05/14/2024 2:51 PM EDT Robert Lainez PA-C LAB MICRO - GENER AL ORDERABLES Performing Organization Address [facility] Co de Phone Number LABORATORY [facility] [address] [place] [address] * EXTRA URINE MARBLE TOP (05/14/2024 2:29 PM EDT) Urine Urine specimen / Unknown 05/14/2024 2:29 PM EDT 05/14/2024 2:52 PM EDT Facundo Gee MD LAB URINE ORDERABL ES Performing Organization Address [facility] de Phone Number LABORATORY [facility] [address] [place] [address] * EXTRA URINE (05/14/2024 2:29 PM EDT) Urine Urine specimen / Unknown 05/14/2024 2:29 PM EDT 05/14/2024 2:52 PM EDT Facundo Gee MD LAB URINE ORDERABL ES Performing Organization Address [facility] Co de Phone Number LABORATORY [facility] [address] [place] [address] * (ABNORMAL) HEPARIN, UNFRACTIONATED (05/14/2024 12:27 PM EDT) Heparin, Unfractionated 0.45(H) <0.10 IU/mL 05/14/2024 1:02 PM EDT LABORATORY [facility] Comment: Unfractionated therapeutic ranges for Anti Xa activity: For Cardiac/Neurologic treatment: 0.3 to 0.6 IU/mL. For treatment of DVT or Pulmonary Embolism: 0.3 to 0.7 IU/mL. Blood Venous blood specimen / Unknown Venipuncture / Unknown 05/14/2024 12:27 PM EDT 05/14/2024 12:38 PM EDT Facundo Gee MD LAB BLOOD ORDERABL ES LABORATORY [facility] [address] [place] [address] * ECHO, COMPLETE (2D), TRANS-THORACIC (05/14/2024 11:58 AM EDT) Pathologist [facility] LEFT VENTRICULAR EJECTION FRACTION 55 % [facility] CARDIOLOGY 05/14/2024 11:1 5 AM EDT Forrest Chau MD ECHOCARDIOLOGY [facility] * VASC DUPLEX CAROTID BILAT (05/14/2024 7:03 AM EDT) Anatomical Region Laterality Modality Neck, Vascular Ultrasound Narrative 05/14/2024 12:38 PM EDT VASCULAR LAB RESULTS DATE OF EXAM: 05/14/24 PRESENTING CONDITIONS: pre-op open heart surgery PHYSICIAN REPORT Carotid Artery Duplex Examination Immediately before proceeding with the vascular lab procedure reported below, the identity of the patient, the correct exam and the correct procedural site were verified. Grover scale and color flow Doppler imaging was performed for evaluation of the right carotid artery. Duplex examination of the right carotid artery identifies atherosclerotic plaque at the carotid bifurcation. The plaque is echogenic and appears to have a smooth surface. Color Doppler imaging was performed for evaluation of the right carotid bifurcation. Spectral analysis of the right internal carotid artery demonstrates peak systolic velocities of 66 cm/sec. Maximum end diastolic velocities are 20 cm/sec.. Peak right common carotid velocity is 51 cm/sec. The right internal carotid to common carotid ratio is 1.3. The right external carotid artery has a peak velocity of 59 centimeters per second. Grover scale and color flow Doppler imaging was performed for the evaluation of the left carotid artery. Duplex examination of the left carotid artery identifies atherosclerotic plaque at the carotid bifurcation. The plaque is echogenic and appears to have a smooth surface. Color Doppler imaging was performed for the evaluation of the left carotid bifurcation. Spectral analysis of the left internal carotid artery demonstrates peak systolic velocities of 86 cm/sec. Maximum end diastolic velocities are 34 cm/sec. Peak left common carotid velocity is 51 cm/sec. The left internal carotid to common carotid ratio is 1.7. The left external carotid artery has a peak velocity of 57 centimeters per second. The right vertebral artery demonstrates antegrade flow. The left vertebral artery demonstrates antegrade flow. Impression: Right carotid artery duplex examination indicates evidence of less than 50% stenosis of the internal carotid artery. Left carotid artery duplex examination indicates evidence of less than 50% stenosis of the internal carotid artery. Rosie Wolfe PA-C RAD VASCUL AR * VASC VEIN MAP BYPASS GRAFT PREOP EVAL (05/14/2024 7:02 AM EDT) Anatomical Region Laterality Modality Extremity, Vascular Ultrasound Narrative 05/14/2024 12:35 PM EDT VASCULAR LAB RESULTS DATE OF EXAMINATION: 05/14/24 INDICATION: Pre op vein map LOWER EXTREMITY VENOUS DUPLEX FOR PREOP VEIN MAPPING Immediately before proceeding with the vascular lab procedure below, the identity of the patient, the correct exam and the correct procedural site were verified. Grover scale, color flow and spectral doppler were performed for this examination. Lower extremity great saphenous vein examination with duplex imaging was conducted for preoperative mapping prior to surgery. Right great saphenous vein is patent with normal venous flow with the following size measurements: Proximal thigh 4.7 mm Mid-thigh 3.2 mm Distal thigh 2.8 mm Right knee 3.1 mm Proximal calf 1.6 mm Mid-calf 2.0 mm Right ankle 0.9 mm Left great saphenous vein is patent with normal venous flow with the following size measurements: Proximal thigh 4.4 mm Mid-thigh 1.5 mm Distal thigh 1.9 mm Left knee 1.4 mm Proximal calf 1.4 mm Mid-calf 2.0 mm Left ankle 1.7 mm CONCLUSION: Patent right great saphenous vein with size measurements as noted., Patent left great saphenous vein with size measurements as noted. Rosie Wolfe PA-C RAD VASCUL AR * (ABNORMAL) HEPARIN, UNFRACTIONATED (05/14/2024 5:51 AM EDT) Heparin, Unfractionated 0.68(H) <0.10 IU/mL 05/14/2024 6:15 AM EDT LABORATORY [facility] Comment: Unfractionated therapeutic ranges for Anti Xa activity: For Cardiac/Neurologic treatment: 0.3 to 0.6 IU/mL. For treatment of DVT or Pulmonary Embolism: 0.3 to 0.7 IU/mL. Blood Venous blood specimen / Unknown Venipuncture / Unknown 05/14/2024 5:51 AM EDT 05/14/2024 5:55 AM EDT Facundo Gee MD LAB BLOOD ORDERABL ES Performing Organization Address [facility] Co de Phone Number LABORATORY [facility] [address] [place] [address] * PT INR (05/14/2024 5:51 AM EDT) Prothrombin Time 13.0 11.6 - 15.2 seconds 05/14/2024 6:12 AM EDT LABORATORY [facility] INR 1.0 0.8 - 1.2 05/14/2024 6:12 AM EDT LABORATORY [facility] Blood Venous blood specimen / Unknown Venipuncture / Unknown 05/14/2024 5:51 AM EDT 05/14/2024 5:55 AM EDT Narrative LABORATORY [facility] - 05/14/2024 6:12 AM EDT Warfarin Therapy INR: 2.0-3.0 conventional anticoagulation INR: 2.5-3.5 high intensity anticoagulation Forrest Chau MD LAB BLOOD ORDERABLES Performing Organization Address [facility] Co de Phone Number LABORATORY [facility] [address] [place] [address] * (ABNORMAL) BASIC METABOLIC PANEL (05/14/2024 5:50 AM EDT) BUN 18 6 - 20 mg/dL 05/14/2024 6:18 AM EDT LAB[facility]ATORY [facility] Creatinine 0.9 0.5 - 1.0 mg/dL 05/14/2024 6:18 AM EDT LAB[facility]ATORY [facility] Estimated Glomerular Filtration Rate 67 >=60 mL/min 05/14/2024 6:18 AM EDT LAB[facility]ATORY [facility] Comment:eGFR is calculated b ased on the CKD-EPI 2020 equation. Sodium 141 135 - 146 mmol/L 05/14/2024 6:18 AM EDT LAB[facility]ATORY [facility] Potassium 4.1 3.5 - 5.1 mmol/L 05/14/2024 6:18 AM EDT LAB[facility]ATORY [facility] Chloride 111(H) 98 - 107 mmol/L 05/14/2024 6:18 AM EDT LAB[facility] CO2 19(L) 22 - 32 mmol/L 05/14/2024 6:18 AM EDT LAB[facility] Anion Gap 11 7 - 15 mmol/L 05/14/2024 6:18 AM EDT LAB[facility]ORY [facility] Glucose 101 70 - 120 mg/dL 05/14/2024 6:18 AM EDT LAB[facility]ORY [facility] Calcium 9.0 8.4 - 10.2 mg/dL 05/14/2024 6:18 AM EDT LABORATORY [facility] Blood Venous blood specimen / Unknown Venipuncture / Unknown 05/14/2024 5:50 AM EDT 05/14/2024 5:55 AM EDT Forrest Chau MD LAB BLOOD ORDERABLES LABORATORY [facility] [address] [place] [address] * (ABNORMAL) CBC (05/14/2024 5:50 AM EDT) WBC 6.49 4.00 - 10.80 K/uL 05/14/2024 6:11 AM EDT LAB[facility]ATORY [facility] RBC 4.65 3.85 - 5.15 M/uL 05/14/2024 6:11 AM EDT LAB[facility]ATORY [facility] HGB 13.8 12.0 - 15.3 g/dL 05/14/2024 6:11 AM EDT LABORATORY [facility] HCT 42.2 36.0 - 45.2 % 05/14/2024 6:11 AM EDT LABORATORY [facility] MCV 90.8 81.5 - 97.5 fL 05/14/2024 6:11 AM EDT LABORATORY [facility] MCH 29.7 27.0 - 34.0 pg 05/14/2024 6:11 AM EDT LABORATORY [facility] MCHC 32.7 32.0 - 36.0 g/dL 05/14/2024 6:11 AM EDT LABORATORY [facility] RDW 13.2 11.5 - 15.5 % 05/14/2024 6:11 AM EDT LABORATORY [facility] PLT 133(L) 140 - 400 K/uL 05/14/2024 6:11 AM EDT LABORATORY [facility] MPV 11.1 6.6 - 11.1 fL 05/14/2024 6:11 AM EDT LABORATORY [facility] nRBCs 0 <=0 /100 WBCs 05/14/2024 6:11 AM EDT LABORATORY [facility] Blood Venous blood specimen / Unknown Venipuncture / Unknown 05/14/2024 5:50 AM EDT 05/14/2024 5:55 AM EDT Forrest Chau MD LAB BLOOD ORDERABLES LABORATORY [facility] [address] [place] [address] * HEMOGLOBIN A1C (05/14/2024 5:50 AM EDT) [facility] Hemoglobin A1C 5.6 4.0 - 5.6 % 05/14/2024 6:30 AM EDT LABORATORY [facility] Comment:The use of HbA1c to monitor glycemic status is based on normal hemoglobin and HbA composition. This test should not be used in patients with abnormal hemoglobin that affects the half life of the red blood cell or the in vivo glycation rates. Estimated Average Glucose 114 <126 mg/dL 05/14/2024 6:30 AM EDT LABORATORY [facility] Blood Venous blood specimen / Unknown Venipuncture / Unknown 05/14/2024 5:50 AM EDT 05/14/2024 5:55 AM EDT Rosy Bell MD LAB BLOOD ORDERABLES LABORATORY [facility] [address] [place] [address] * LIPID PANEL WITHOUT DIRECT LDL (05/14/2024 5:50 AM EDT) Triglycerides 86 <=174 mg/dL 05/14/2024 6:18 AM EDT LABORATORY [facility] Comment: Triglyceride Reference Ranges (mg/dL): <150 Acceptable 150-174 Borderline high 175-499 High >=500 Very high Cholesterol 175 <200 mg/dL 05/14/2024 6:18 AM EDT LABORATORY [facility] Comment: Total Cholesterol Reference Ranges (mg/dL): <200 Desirable 200-239 Borderline high >=240 High HDL Cholesterol 60 >49 mg/dL 6:18 AM EDT LABORATORY [facility] Comment: HDL Cholesterol Reference Ranges (mg/dL): >=60 High (Desirable) <50 Low (Undesirable) For Females <40 Low (Undesirable) For Males Non-HDL Cholesterol 115 <=159 mg/dL 05/14/2024 6:18 AM EDT LABORATORY [facility] Comment: Non-HDL Cholesterol Reference Range (mg/dL): <100 Target level for high risk ASCVD patient <130 Optimal for general population 130-159 Near optimal for general population 160-189 Borderline High 190-219 High >=220 Very High LDL Cholesterol 98 <=129 mg/dL 05/14/2024 6:18 AM EDT LABORATORY C Comment: LDL Cholesterol Reference Ranges (mg/dL): <70 Target level for high risk ASCVD patient <100 Optimal for general population 100-129 Near optimal for general population 130-159 Borderline high 160-189 High >=190 Very high Blood Venous blood specimen / Unknown Venipuncture / Unknown 05/14/2024 5:50 AM EDT 05/14/2024 5:55 AM EDT Rosy Bell MD LAB BLOOD ORDERABLES LABORATORY [facility] [address] [place] [address] * (ABNORMAL) HEPARIN, UNFRACTIONATED (05/13/2024 11:36 PM EDT) Heparin, Unfractionated 0.27(H) <0.10 IU/mL 05/13/2024 11:54 PM EDT LABORATORY [facility] Comment: Unfractionated therapeutic ranges for Anti Xa activity: For Cardiac/Neurologic treatment: 0.3 to 0.6 IU/mL. For treatment of DVT or Pulmonary Embolism: 0.3 to 0.7 IU/mL. Blood Venous blood specimen / Unknown Venipuncture / Unknown 05/13/2024 11:36 PM EDT 05/13/2024 11:39 PM EDT Carly Nolasco MD LAB BLOOD ORDERABLES LABORATORY [facility] [address] [place] [address] * (ABNORMAL) URINALYSIS, REFLEX TO MICROSCOPIC (05/13/2024 9:22 PM EDT) Color, Urine Yellow Colorless, Light Yellow, Yellow, Dark Yellow 05/13/2024 10:39 PM EDT LABORATORY [facility] Clarity, Urine Clear Clear 05/13/2024 10:39 PM EDT LABORATORY [facility] Glucose, Urine Negative Negative mg/dL 05/13/2024 10:39 PM EDT LABORATORY [facility] Bilirubin, Urine Negative Negative 05/13/2024 10:39 PM EDT LABORATORY [facility] Ketone, Urine 15(A) Negative mg/dL 05/13/2024 10:39 PM EDT LABORATORY [facility] Specific [place], Urine 1.035(H) 1.003 - 1.030 05/13/2024 10:39 PM EDT LABORATORY [facility] Blood, Urine Trace(A) Negative 05/13/2024 10:39 PM EDT LABORATORY [facility] pH, Urine 5.5 5.0 - 7.5 Units 05/13/2024 10:39 PM EDT LABORATORY [facility] Protein, Urine Negative Negative mg/dL 05/13/2024 10:39 PM EDT LABORATORY [facility] Urobilinogen, Urine Normal Normal mg/dL 05/13/2024 10:39 PM EDT LAB[facility]ORY [facility] Nitrite, Urine Negative Negative 05/13/2024 10:39 PM EDT LAB[facility]ORY [facility] Esterase, Urine Negative Negative 05/13/2024 10:39 PM EDT LAB[facility] RBC, Urine 3-5(A) 0 - 2 /HPF 05/13/2024 10:39 PM EDT [facility] WBC, Urine 3-5(A) 0 - 2 /HPF 05/13/2024 10:39 PM EDT LAB[facility] Bacteria, Urine 151-200(A) 0 - 25 /HPF 05/13/2024 10:39 PM EDT LABORATORY C Urine Non-blood Collection / Unknown 05/13/2024 9:22 PM EDT 05/13/2024 9:29 PM EDT Rosie CORTEZ-C LAB URINE ORDERABLES Performing Organization Address [facility] Co de Phone Number LABORATORY [facility] [address] [place] [address] * STAPH AUREUS PCR (05/13/2024 8:05 PM EDT) MRSA PCR Result Negative Negative 10:47 PM EDT LABORATORY [facility] Comment:No Methicillin resis tant Staphylococcus aureus detected by PCR (amplified probe). Staphylococcus aureus PCR Result Negative Negative 05/13/2024 10:47 PM EDT LABORATORY [facility] Comment:No Staphylococcus au reus detected by PCR (amplified probe). Upper Respiratory Swab of internal nose / Unknown Non-blood Collection / Unknown 05/13/2024 8:05 PM EDT 05/13/2024 9:09 PM EDT Rosie CORTEZ-C LAB MICRO - GENERAL ORDERABLES Performing Organization Address [facility] Co de Phone Number LABORATORY [facility] [address] [place] [address] * (ABNORMAL) BLOOD GAS, ARTERIAL (05/13/2024 7:06 PM EDT) Temperature 37.0 C 05/13/2024 7:15 PM EDT LAB[facility]ORY [facility] pH, Arterial 7.411 7.350 - 7.450 units 05/13/2024 7:15 PM EDT LAB[facility]ORY [facility] pCO2, Arterial 31.9(L) 35.0 - 45.0 mmHg 05/13/2024 7:15 PM EDT LAB[facility]ORY [facility] pO2, Arterial 81.8 75.0 - 100.0 mmHg 05/13/2024 7:15 PM EDT LAB[facility]ORY [facility] Base Excess, Arterial -3.3(L) -2.0 - 2.0 mmol/L 05/13/2024 7:15 PM EDT LAB[facility]ORY [facility] HGB 13.9 12.0 - 15.3 g/dL 05/13/2024 7:15 PM EDT LAB[facility] Oxyhemoglobin, Arterial 95.1 94.0 - 99.0 % total Hgb 05/13/2024 7:15 PM EDT LAB[facility]ORY [facility] Carboxyhemoglob in, Whole Blood 1.3 <=1.5 % total Hgb 05/13/2024 7:15 PM EDT LAB[facility]ORY [facility] Comment:Smokers: 0-9.0 % Methemoglobin, Whole Blood 0.6 <=1.5 % total Hgb 05/13/2024 7:15 PM EDT LAB[facility] Reduced Hemoglobin, Arterial 3.0 0.0 - 5.0 % total Hgb 05/13/2024 7:15 PM EDT [facility] O2 Content, Arterial 18.6 15.0 - 24.0 %vol 05/13/2024 7:15 PM EDT LAB[facility] FiO2 0.21 % 05/13/2024 7:15 PM EDT LAB[facility] Comment:room air O2 Flow, Arterial Not Provided L/min 05/13/2024 7:15 PM EDT LAB[facility] Bicarbonate, Whole Blood 19.8(L) 23.0 - 31.0 mmol/L 05/13/2024 7:15 PM EDT LAB[facility]ORY [facility] Blood Arterial blood specimen / Unknown Arterial Puncture / Unknown 05/13/2024 7:06 PM EDT 05/13/2024 7:11 PM EDT Rosie Wolfe PA-C LAB BLOOD ORDERABLES Performing Organization Address City/State/[facility] Co de Phone Number [facility] [address] [place] [address] * ANEMIA REFLEX CHEMISTRY HOLD (05/13/2024 6:54 PM EDT) Blood Venous blood specimen / Unknown Venipuncture / Unknown 05/13/2024 6:54 PM EDT 05/13/2024 7:03 PM EDT Rosie Wolfe PA-C LAB BLOOD ORDERABLES Performing Organization Address City/[facility]/ZIP Co de Phone Number LABORATORY [facility] [address] [place] [address] * ABO/RH (05/13/2024 6:53 PM EDT) Pathologist [facility] ABO A 05/13/2024 7:58 PM EDT LABORATORY [facility] BLOOD BANK Rh Positive 05/13/2024 7:58 PM EDT LAB[facility]ATORY [facility] [facility] Blood Venous blood specimen / Unknown Venipuncture / Unknown 05/13/2024 6:53 PM EDT 05/13/2024 7:03 PM EDT Rosie Wolfe PA-C LAB BLOOD BANK TEST ORDERABLES Performing Organization Address [facility] Co de Phone Number LAB[facility]ATORY [facility] [address] [place] [address] * DIFFERENTIAL, AUTOMATED (05/13/2024 6:53 PM EDT) WBC 6.79 4.00 - 10.80 K/uL 05/13/2024 7:17 PM EDT [facility] Neutrophils % 55.3 40.0 - 75.0 % 05/13/2024 7:17 PM EDT [facility] Lymphocytes % 32.4 18.0 - 42.0 % 05/13/2024 7:17 PM EDT [facility] Monocytes % 10.3 1.0 - 11.0 % 05/13/2024 7:17 PM EDT [facility] Eosinophils % 1.5 0.0 - 6.0 % 05/13/2024 7:17 PM EDT [facility] Basophils % 0.4 0.0 - 2.0 % 05/13/2024 7:17 PM EDT [facility] Immature Granulocytes % 0.1 0.0 - 2.0 % 05/13/2024 7:17 PM EDT [facility] Absolute Neutrophils 3.75 1.80 - 7.70 K/uL 05/13/2024 7:17 PM EDT [facility] Absolute Lymphocytes 2.20 1.00 - 4.80 K/ul 05/13/2024 7:17 PM EDT [facility] Absolute Monocytes 0.70 0.00 - 1.10 K/uL 05/13/2024 7:17 PM EDT [facility] Absolute Eosinophils 0.10 0.00 - 0.70 K/uL 05/13/2024 7:17 PM EDT [facility] Absolute Basophils 0.03 0.00 - 0.20 K/uL 05/13/2024 7:17 PM EDT [facility] Absolute Immature Granulocytes 0.01 0.00 - 0.20 K/uL 05/13/2024 7:17 PM EDT [facility] Blood Venous blood specimen / Unknown Venipuncture / Unknown 05/13/2024 6:53 PM EDT 05/13/2024 7:03 PM EDT Rosie Wolfe PA-C LAB BLOOD ORDERABLES [facility] [address] [place] [address] * ANEMIA CBC (05/13/2024 6:53 PM EDT) [facility] WBC 6.79 4.00 - 10.80 K/uL 05/13/2024 7:17 PM EDT [facility] RBC 4.72 3.85 - 5.15 M/uL 05/13/2024 7:17 PM EDT [facility] HGB 14.3 12.0 - 15.3 g/dL 05/13/2024 7:17 PM EDT [facility] Comment: Anemia reflex testing triggers on a HGB < 12.0 for Females and HGB < 13.0 for Males in accordance with the WHO Anemia Guidelines Anemia reflex testing triggers on a HGB < 12.0 for Females and HGB < 13.0 for Males in accordance with the WHO Anemia Guidelines HCT 42.4 36.0 - 45.2 % 05/13/2024 7:17 PM EDT [facility] MCV 89.8 81.5 - 97.5 fL 05/13/2024 7:17 PM EDT [facility] MCH 30.3 27.0 - 34.0 pg 05/13/2024 7:17 PM EDT [facility] MCHC 33.7 32.0 - 36.0 g/dL 05/13/2024 7:17 PM EDT [facility] RDW 13.2 11.5 - 15.5 % 05/13/2024 7:17 PM EDT [facility] PLT 159 140 - 400 K/uL 05/13/2024 7:17 PM EDT [facility] MPV 10.9 6.6 - 11.1 fL 05/13/2024 7:17 PM EDT [facility] nRBCs 0 <=0 /100 WBCs 05/13/2024 7:17 PM EDT [facility] Blood Venous blood specimen / Unknown Venipuncture / Unknown 05/13/2024 6:53 PM EDT 05/13/2024 7:03 PM EDT Rosie Wolfe PA-C LAB BLOOD ORDERABLES [facility] [address] [place] [address] * TSH (05/13/2024 6:53 PM EDT) TSH 2.13 0.27 - 4.20 uIU/mL 05/13/2024 8:20 PM EDT [facility] Blood Venous blood specimen / Unknown Venipuncture / Unknown 05/13/2024 6:53 PM EDT 05/13/2024 7:03 PM EDT Rosie Wolfe PA-C LAB BLOOD ORDERABLES [facility] [address] [place] [address] * TYPE AND SCREEN (05/13/2024 6:53 PM EDT) ABO A 05/13/2024 7:40 PM EDT [facility] Rh Positive 05/13/2024 7:40 PM EDT LAB[facility] Red Blood Cell Antibody Screen Negative 05/13/2024 7:40 PM EDT LAB[facility] Specimen Expiration Date 05/16/2024 23:59 05/13/2024 7:40 PM EDT [facility] Blood Venous blood specimen / Unknown Venipuncture / Unknown 05/13/2024 6:53 PM EDT 05/13/2024 7:03 PM EDT Rosie Wolfe PA-C LAB BLOOD BANK TEST ORDERABLES [facility] [address] [place] [address] * HEPATIC FUNCTION PANEL (05/13/2024 6:53 PM EDT) Albumin 4.2 3.8 - 5.0 g/dL 05/13/2024 7:37 PM EDT [facility] AST 28 10 - 35 U/L 05/13/2024 7:37 PM EDT [facility] Comment:Result may be falsel y elevated due to hemolysis. Alkaline Phosphatase 64 35 - 130 U/L 05/13/2024 7:37 PM EDT [facility] ALT 29 10 - 35 U/L 05/13/2024 7:37 PM EDT [facility] Bilirubin, Total 0.8 <=1.2 mg/dL 05/13/2024 7:37 PM EDT [facility] Bilirubin, Direct <0.2 0.0 - 0.3 mg/dL 05/13/2024 7:37 PM EDT [facility] Protein 6.9 6.0 - 8.3 g/dL 05/13/2024 7:37 PM EDT LABORATORY C Blood Venous blood specimen / Unknown Venipuncture / Unknown 05/13/2024 6:53 PM EDT 05/13/2024 7:03 PM EDT Rosie Wolfe PA-C LAB BLOOD ORDERABLES [facility] [address] [place] [address] * PREPARE PACKED RED BLOOD CELLS (05/13/2024 6:20 PM EDT) Unit Product Code [id number] 05/15/2024 12:36 PM EDT [facility] Unit Number [id number] 05/15/2024 12:36 PM EDT [facility] Unit ABO A 05/15/2024 12:36 PM EDT [facility] Unit Rh POS 05/15/2024 12:36 PM EDT [facility] Unit Crossmatch Compatible 05/13/2024 8:03 PM EDT [facility] Unit Status RE 05/15/2024 12:36 PM EDT [facility] Unit Blood Type APOS 05/15/2024 12:36 PM EDT [facility] Unit Expiration [id number] 05/15/2024 12:36 PM EDT [facility] Unit Barcode 6200 05/15/2024 12:36 PM EDT [facility] Unit Product Code [id number] 05/15/2024 12:36 PM EDT [facility] Unit Number [id number] 05/15/2024 12:36 PM EDT [facility] Unit ABO A 05/15/2024 12:36 PM EDT [facility] Unit Rh POS 05/15/2024 12:36 PM EDT [facility] Unit Crossmatch Compatible 05/13/2024 8:03 PM EDT [facility] Unit Status RE 05/15/2024 12:36 PM EDT [facility] Unit Blood Type APOS 05/15/2024 12:36 PM EDT [facility] Unit Expiration [id number] 05/15/2024 12:36 PM EDT [facility] Unit Barcode 6200 05/15/2024 12:36 PM EDT [facility] 05/13/2024 6:20 PM EDT Rosie Wolfe PA-C BLD BANK P RODUCT ORDERABLES [facility] [address] [place] [address] * (ABNORMAL) HEMOGLOBIN A1C (05/13/2024 4:54 PM EDT) Hemoglobin A1C 6.0(H) 4.0 - 5.6 % 05/13/2024 7:15 PM EDT [facility] Comment:The use of HbA1c to monitor glycemic status is based on normal hemoglobin and HbA composition. This test should not be used in patients with abnormal hemoglobin that affects the half life of the red blood cell or the in vivo glycation rates. Estimated Average Glucose 126(H) <126 mg/dL 05/13/2024 7:15 PM EDT [facility] Blood Venous blood specimen / Unknown Venipuncture / Unknown 05/13/2024 4:54 PM EDT 05/13/2024 5:01 PM EDT Rosie Wolfe PA-C LAB BLOOD ORDERABLES [facility] [address] [place] [address] * (ABNORMAL) RETICULOCYTE PANEL (05/13/2024 4:54 PM EDT) Reticulocyte Percent 2.40(H) 0.80 - 1.90 % 05/13/2024 6:36 PM EDT [facility] Absolute Reticulocyte 115.0(H) 31.3 - 100.1 K/uL 05/13/2024 6:36 PM EDT [facility] Immature Reticuloctye Fraction 16.3 2.5 - 20.6 % 05/13/2024 6:36 PM EDT [facility] Reticulocyte Hemoglobin 34.6 29.7 - 37.4 pg 05/13/2024 6:36 PM EDT [facility] Blood Venous blood specimen / Unknown Venipuncture / Unknown 05/13/2024 4:54 PM EDT 05/13/2024 5:01 PM EDT Rosie Wolfe PA-C LAB BLOOD ORDERABLES Performing Organization Address [facility]/ZIP Co de Phone Number [facility] [address] [place] [address] * HEPARIN, UNFRACTIONATED (05/13/2024 4:54 PM EDT) [facility] Heparin, Unfractionated <0.10 <0.10 IU/mL 05/13/2024 5:19 PM EDT [facility] Comment: Unfractionated therapeutic ranges for Anti Xa activity: For Cardiac/Neurologic treatment: 0.3 to 0.6 IU/mL. For treatment of DVT or Pulmonary Embolism: 0.3 to 0.7 IU/mL. Blood Venous blood specimen / Unknown Venipuncture / Unknown 05/13/2024 4:54 PM EDT 05/13/2024 5:01 PM EDT Forrest Chau MD LAB BLOOD ORDERABLES Performing Organization Address [facility]/ZIP Co de Phone Number [facility]ORY [facility] [address] [place] [address] * CBC (05/13/2024 4:54 PM EDT) [facility] WBC 6.41 4.00 - 10.80 K/uL 05/13/2024 5:12 PM EDT [facility] RBC 4.82 3.85 - 5.15 M/uL 05/13/2024 5:12 PM EDT [facility] HGB 14.5 12.0 - 15.3 g/dL 05/13/2024 5:12 PM EDT [facility] HCT 43.1 36.0 - 45.2 % 05/13/2024 5:12 PM EDT [facility] MCV 89.4 81.5 - 97.5 fL 05/13/2024 5:12 PM EDT [facility] MCH 30.1 27.0 - 34.0 pg 05/13/2024 5:12 PM EDT [facility] MCHC 33.6 32.0 - 36.0 g/dL 05/13/2024 5:12 PM EDT [facility] RDW 13.1 11.5 - 15.5 % 05/13/2024 5:12 PM EDT [facility] PLT 167 140 - 400 K/uL 05/13/2024 5:12 PM EDT [facility] MPV 10.5 6.6 - 11.1 fL 05/13/2024 5:12 PM EDT [facility] nRBCs 0 <=0 /100 WBCs 05/13/2024 5:12 PM EDT [facility] Blood Venous blood specimen / Unknown Venipuncture / Unknown 05/13/2024 4:54 PM EDT 05/13/2024 5:01 PM EDT Forrest Chau MD LAB BLOOD ORDERABLES [facility] [address] [place] [address] * APTT (05/13/2024 4:54 PM EDT) aPTT 30 21 - 38 seconds 05/13/2024 5:19 PM EDT [facility] Blood Venous blood specimen / Unknown Venipuncture / Unknown 05/13/2024 4:54 PM EDT 05/13/2024 5:01 PM EDT Narrative [facility] - 05/13/2024 5:19 PM EDT Anticoagulation may affect testing. Refer to [facility] Test Catalog for a list of effects. Forrest Chau MD LAB BLOOD ORDERABLES [facility] [address] [place] [address] * PT INR (05/13/2024 4:54 PM EDT) Prothrombin Time 13.1 11.6 - 15.2 seconds 05/13/2024 5:19 PM EDT [facility] INR 1.0 0.8 - 1.2 05/13/2024 5:19 PM EDT LABORATORY C Blood Venous blood specimen / Unknown Venipuncture / Unknown 05/13/2024 4:54 PM EDT 05/13/2024 5:01 PM EDT Narrative [facility] - 05/13/2024 5:19 PM EDT Warfarin Therapy INR: 2.0-3.0 conventional anticoagulation INR: 2.5-3.5 high intensity anticoagulation Forrest Chau MD LAB BLOOD ORDERABLES Performing Organization Address City/[facility] Co de Phone Number [facility]ORY [facility] [address] [place] [address] * EKG (05/13/2024 2:51 PM EDT) 05/13/2024 2:51 PM EDT Narrative Procedure Note Kale Woodruff MD - 05/13/2024 2:51 PM EDT REASON FOR STUDY: chest pain CONCLUSIONS: Normal sinus rhythm Left axis deviation Moderate voltage criteria for LVH, may be normal variant ( R in aVL ,[place] product ) Anterior infarct , age undetermined ST & T wave abnormality, consider lateral ischemia Abnormal ECG When compared with ECG of 13-Aug-2023 12:32, T wave inversion now evident in Inferior leads T wave inversion now evident in Anterior-lateral leads Ventricular Rate: 64 Atrial Rate: 64 PA Interval: 184 QRS Duration: 86 QT/QTc: 400/412 ms P-R-T [place]: 30 : -41 : -33 degrees Forrest Chau MD EKG Performing Organization Address [place]/[facility] Co de Phone Number [facility] * IRON SCREEN, INCLUDING TIBC (05/13/2024 2:31 PM EDT) Iron 92 33 - 151 ug/dL 05/13/2024 6:41 PM EDT [facility] Iron Binding Capacity 305 250 - 425 ug/dL 05/13/2024 6:41 PM EDT [facility] Transferrin Saturation Percent 30 15 - 55 % 05/13/2024 6:41 PM EDT [facility] Blood Venous blood specimen / Unknown Venipuncture / Unknown 05/13/2024 2:31 PM EDT 05/13/2024 2:43 PM EDT Rosie Wolfe PA-C LAB BLOOD ORDERABLES Performing Organization Address [place]/[facility] Co de Phone Number [facility]ORY [facility] [address] [place] [address] * (ABNORMAL) FERRITIN (05/13/2024 2:31 PM EDT) Ferritin 217(H) 13 - 150 ng/mL 05/13/2024 7:15 PM EDT [facility] Comment:Postmenopausal women have higher ferritin levels than pre-menopausal women. The above reference interval is based on pre-menopausal women. Blood Venous blood specimen / Unknown Venipuncture / Unknown 05/13/2024 2:31 PM EDT 05/13/2024 2:43 PM EDT Rosie Wolfe PA-C LAB BLOOD ORDERABLES Performing Organization Address [place]/[facility] Co de Phone Number [facility]ORY [facility] [address] [place] [address] * (ABNORMAL) BASIC METABOLIC PANEL (05/13/2024 2:31 PM EDT) Pathologist [facility] BUN 18 6 - 20 mg/dL 05/13/2024 3:14 PM EDT [facility] Creatinine 1.0 0.5 - 1.0 mg/dL 05/13/2024 3:14 PM EDT [facility] Estimated Glomerular Filtration Rate 59(L) >=60 mL/min 05/13/2024 3:14 PM EDT [facility] Comment:eGFR is calculated b ased on the CKD-EPI 2020 equation. Sodium 140 135 - 146 mmol/L 05/13/2024 3:14 PM EDT [facility] Potassium 4.0 3.5 - 5.1 mmol/L 05/13/2024 3:14 PM EDT [facility] Chloride 111(H) 98 - 107 mmol/L 05/13/2024 3:14 PM EDT [facility] CO2 18(L) 22 - 32 mmol/L 05/13/2024 3:14 PM EDT [facility] Anion Gap 11 7 - 15 mmol/L 05/13/2024 3:14 PM EDT [facility] Glucose 112 70 - 120 mg/dL 05/13/2024 3:14 PM EDT [facility] Calcium 8.8 8.4 - 10.2 mg/dL 05/13/2024 3:14 PM EDT [facility] Blood Venous blood specimen / Unknown Venipuncture / Unknown 05/13/2024 2:31 PM EDT 05/13/2024 2:43 PM EDT Rosy Bell MD LAB BLOOD ORDERABLES [facility] [address] [place] [address] * CBC (05/13/2024 2:31 PM EDT) WBC 6.51 4.00 - 10.80 K/uL 05/13/2024 2:54 PM EDT [facility] RBC 4.66 3.85 - 5.15 M/uL 05/13/2024 2:54 PM EDT [facility] HGB 14.0 12.0 - 15.3 g/dL 05/13/2024 2:54 PM EDT [facility] HCT 42.1 36.0 - 45.2 % 05/13/2024 2:54 PM EDT [facility] MCV 90.3 81.5 - 97.5 fL 05/13/2024 2:54 PM EDT [facility] MCH 30.0 27.0 - 34.0 pg 05/13/2024 2:54 PM EDT [facility] MCHC 33.3 32.0 - 36.0 g/dL 05/13/2024 2:54 PM EDT [facility] RDW 13.1 11.5 - 15.5 % 05/13/2024 2:54 PM EDT [facility] PLT 162 140 - 400 K/uL 05/13/2024 2:54 PM EDT [facility] MPV 10.7 6.6 - 11.1 fL 05/13/2024 2:54 PM EDT [facility] nRBCs 0 <=0 /100 WBCs 05/13/2024 2:54 PM EDT [facility] Blood Venous blood specimen / Unknown Venipuncture / Unknown 05/13/2024 2:31 PM EDT 05/13/2024 2:43 PM EDT Rosy Bell MD LAB BLOOD ORDERABLES [facility] [address] [place] [address] documented in this encounter Visit Diagnoses Diagnosis Coronary artery disease- Primary Coronary atherosclerosis of unspecified type of vessel, [place] or graft Multiple vessel coronary artery disease Coronary atherosclerosis of unspecified type of vessel, [place] or graft Chest pain, unspecified type S/P CABG x 3 Postsurgical aortocoronary bypass status ACS (acute coronary syndrome) (HCC) Intermediate coronary syndrome Status post surgery Encounter for fitting and adjustment of non-vascular catheter Encounter for fitting and adjustment of other gastrointestinal appliance and device Cardiomegaly Abnormal findings on diagnostic imaging of other specified body structures Presence of other specified devices Encounter for surgical aftercare following surgery on the circulatory system Other nonspecific abnormal finding of lung field Unspecified abdominal pain Coronary artery disease involving [place] coronary artery of [place] heart with angina pectoris (HCC) Dyslipidemia, goal LDL below 100 Other and unspecified hyperlipidemia HTN, goal below 140/90 Unspecified essential hypertension Other specified symptoms and signs involving the circulatory and respiratory systems HTN, goal below 140/90 Unspecified essential hypertension Gastroesophageal reflux disease without esophagitis Esophageal reflux Dyslipidemia, goal LDL below 100 Other and unspecified hyperlipidemia Hypertensive urgency Unspecified essential hypertension documented in this encounter Administered Medications Inactive Administered Medications - up to 3 most recent administrations Medication Order MAR Action Action Date Dose Rate Site Acetaminophen (Ofirmev) inj 1,000 mg 1,000 mg, Intravenous, ONCE, 1 dose, On Sat05/15/24 at 1545, Administer over 15 Minutes, Administer undiluted over 15 minutes! NOTE: Maximum of 4000 mg per 24 hours of acetaminophen from all acetaminophen containing products., Indication: Patient is strictly NPO New Bag 05/15/2024 4:32 PM EDT 1,000 mg 400 mL/hr Acetaminophen (Tylenol) tab 975 mg 975 mg, Oral, Q8H, First dose on Sat05/15/24 at 1400, Last dose on Sat05/20/24 at 0600, For 5 days, Avoid in patients with severe hepatic impairment or severe active liver disease. Use for 5 days, Post-op Given 05/20/2024 5:14 AM EDT 975 mg Given 05/19/2024 9:17 PM EDT 975 mg Given 05/19/2024 1:42 PM EDT 975 mg Acetaminophen (Tylenol) tab 975 mg 975 mg, Oral, Q6H PRN Pain, Mild, Starting on Sat05/20/24 at 0000, Until Sat05/20/24 at 1713, Begin after around the clock acetaminophen order discontinued (S+5). Maximum 4 g acetaminophen/day. Avoid in patients with severe hepatic impairment or severe active liver disease., Post-op albumin (human) (Plasbumin-5) 5 % infusion 25 g Intravenous, Please scan placement coordinator "square" 2D barcode to record Lot/ Expiration, ONCE, 1 dose, On Sat05/15/24 at 1600 Restarted 05/15/2024 4:16 PM EDT 500 mL/hr New Bag 05/15/2024 3:41 PM EDT 25 g 500 mL/hr albumin (human) (Plasbumin-5) 5 % infusion 25 g Intravenous, Please scan placement coordinator "square" 2D barcode to record Lot/ Expiration, ONCE, 1 dose, On Sat05/15/24 at 2330 New Bag 05/15/2024 11:19 PM EDT 25 g 1000 mL/hr albumin (human) (Plasbumin-5) 5 % infusion 25 g Intravenous, Please scan placement coordinator "square" 2D barcode to record Lot/ Expiration, ONCE, 1 dose, On 05/16/24 at 0500 New Bag 05/16/2024 5:25 AM EDT 25 g 1000 mL/hr albumin (human) (Plasbumin-5) 5 % infusion 25 g Intravenous, Please scan placement coordinator "square" 2D barcode to record Lot/ Expiration, ONCE, 1 dose, On 05/16/24 at 2230 New Bag 05/16/2024 10:18 PM EDT 25 g 1000 mL/hr albumin, human 25 % inj 25 g Intravenous, Please scan placement coordinator "square" 2D barcode to record Lot/ Expiration, ONCE, 1 dose, On Sat05/17/24 at 1600 New Bag 05/17/2024 3:58 PM EDT 25 g 100 mL/hr Amiodarone (Cordarone) 150 mg in dextrose 100 mL BOLUS 150 mg, Central IV, ONCE, 1 dose, On 05/16/24 at 0100, Administer over 10 Minutes, USE 0.22 micron inline filter New Bag 05/16/2024 12:32 AM EDT 150 mg 600 mL/hr Amiodarone (Cordarone) 150 mg in dextrose 100 mL BOLUS 150 mg, Central IV, ONCE, 1 dose, On [facility] 05/16/24 at 0400, Administer over 10 Minutes, USE 0.22 micron inline filter New Bag 05/16/2024 3:26 AM EDT 150 mg 600 mL/hr Amiodarone (Cordarone) 150 mg in dextrose 100 mL BOLUS 150 mg, Central IV, ONCE, 1 dose, On 05/17/24 at 0000, Administer over 10 Minutes, USE 0.22 micron inline filter New Bag 05/16/2024 11:29 PM EDT 150 mg 600 mL/hr Amiodarone (Cordarone) 150 mg in dextrose 100 mL BOLUS 150 mg, Central IV, ONCE, 1 dose, On [place] 05/17/24 at 0030, Administer over 10 Minutes, USE 0.22 micron inline filter New Bag 05/16/2024 11:52 PM EDT 150 mg 600 mL/hr Amiodarone (Cordarone) 150 mg in dextrose 100 mL BOLUS 150 mg, Central IV, ONCE, 1 dose, On [place] 05/17/24 at 0130, Administer over 10 Minutes, USE 0.22 micron inline filter New Bag 05/17/2024 1:12 AM EDT 150 mg 600 mL/hr Amiodarone (Cordarone) 150 mg in dextrose 100 mL BOLUS 150 mg, Central IV, ONCE, 1 dose, On [place] 05/17/24 at 0200, Administer over 10 Minutes, USE 0.22 micron inline filter New Bag 05/17/2024 1:36 AM EDT 150 mg 600 mL/hr amiodarone (Cordarone) 900 mg in NSS 500 mL INFUSION Central IV, 1 mg/min (33.3333 mL/hr, rounded to 33.33 mL/hr), Amiodarone to be run using Smart pump mode: Pump is programmed to *ALERT* at 200 ml to notify of RATE change from 1mg/min to go to 0.5 mg/min. Use 0.22 micron filter., CONTINUOUS, Starting on Sun 28/24 at 0200, Until 05/17/24 at 0745 Rate Verify 05/17/2024 8:00 AM EDT 1 mg/min 33.33 mL/hr Rate Verify 05/17/2024 4:00 AM EDT 1 mg/min 33.33 mL/hr Restarted 05/17/2024 3:27 AM EDT 1 mg/min 33.33 mL/hr amiodarone (Cordarone) 900 mg in NSS 500 mL INFUSION Central IV, 0.5 mg/min (16.6667 mL/hr, rounded to 16.67 mL/hr), Amiodarone to be run using Smart pump mode: Pump is programmed to *ALERT* at 200 ml to notify of RATE change from 1mg/min to go to 0.5 mg/min. Use 0.22 micron filter., CONTINUOUS CALL PHARMACY TO DISPENSE, Starting on Sat05/17/24 at 0730, Until Sat05/17/24 at 1412 Rate Verify 05/17/2024 3:00 PM EDT 0.5 mg/min 16.66 mL/hr Rate Verify 05/17/2024 2:00 PM EDT 0.5 mg/min 16.66 mL/hr Rate Verify 05/17/2024 12:00 PM EDT 0.5 mg/min 16.66 mL/hr amiodarone (Cordarone) 900 mg in NSS 500 mL INFUSION Central IV, 0.5 mg/min (16.6667 mL/hr, rounded to 16.67 mL/hr), Let amio gtt run out, CONTINUOUS CALL PHARMACY TO DISPENSE, Starting on Sat05/17/24 at 1445, Until Sat05/18/24 at 2358 KVO 05/18/2024 3:21 AM EDT 0.15 mg/min 5 mL/hr Rate Verify 05/17/2024 6:00 PM EDT 0.5 mg/min 16.66 mL/hr Rate Verify 05/17/2024 5:00 PM EDT 0.5 mg/min 16.66 mL/hr amiodarone (Cordarone) tab 200 mg 200 mg, Oral, WITH MEALS, First dose on Sat05/17/24 at 0800, Until Discontinued Given 05/20/2024 8:04 AM EDT 200 mg Given 05/19/2024 4:57 PM EDT 200 mg Given 05/19/2024 11:51 AM EDT 200 mg aspirin chew tab 81 mg 81 mg, Oral, Daily(AM), First dose on Sat05/16/24 at 0900, Until Discontinued, Start on POD#1, Post-op Given 05/20/2024 8:03 AM EDT 81 mg Given 05/19/2024 9:41 AM EDT 81 mg Given 05/18/2024 7:39 AM EDT 81 mg aspirin enteric coated tab 81 mg 81 mg, Oral, Daily(AM), First dose on Sat05/14/24 at 0900, Until Discontinued, This med should NOT be Crushed or Chewed Given 05/14/2024 8:19 AM EDT 81 mg Atenolol (Tenormin) tab 12.5 mg 12.5 mg, Oral, Daily(AM), First dose on Sat05/18/24 at 0630, Until Discontinued, Hold for HR less than 60 or SBP below 100 and notify service if dose is held Given 05/18/2024 6:29 AM EDT 12.5 mg Atenolol (Tenormin) tab 25 mg 25 mg, Oral, Daily(AM), First dose (after last modification) on Sat05/19/24 at 0900, Until Discontinued, Hold for HR less than 60 or SBP below 100 and notify service if dose is held Given 05/20/2024 8:04 AM EDT 25 mg Given 05/19/2024 9:41 AM EDT 25 mg Atenolol (Tenormin) tab 50 mg 50 mg, Oral, Daily(AM), First dose on Sat05/14/24 at 0900, Until Discontinued, Hold for HR less than 60 or SBP below 100 and notify service if dose is held Given 05/15/2024 5:15 AM EDT 50 mg Given 05/14/2024 8:19 AM EDT 50 mg atorvaSTATin (Lipitor) tab 80 mg 80 mg, Oral, Daily(AM), First dose on Sat05/14/24 at 0900, Until Discontinued Given 05/20/2024 8:03 AM EDT 80 mg Given 05/19/2024 9:41 AM EDT 80 mg Given 05/18/2024 7:39 AM EDT 80 mg atropine sulfate inj 1 mg 1 mg, IV Push, PRN Other, X1 PRN hemodynamically significant bradydysrythmias and call CT Surgeon toni MIR, Starting on Sat05/15/24 at 1221, Until Sat05/20/24 at 1713, For 1 dose, Post-op Bisacodyl (Dulcolax) supp 10 mg 10 mg, Rectal, DAILY PRN Constipation, Starting on Sat05/17/24 at 0800, Until Sat05/20/24 at 1713, Post-op calcium CHLORide 10 % inj 1 g 1 g, IV Push, PRN Other, Calcium Replacement, Starting on Sat05/15/24 at 1221, Until Sat05/20/24 at 1713, For 1 dose, Ionized calcium is less than 1 and MAP less than 80, Post-op calcium CHLORide 10 % inj 1 g 1 g, Intravenous, ONCE, On Sat05/15/24 at 1315, For 1 dose Given 05/15/2024 1:22 PM EDT 1 g ceFAZolin in dextrose (Ancef) ivpb 2 g 2 g, IV Piggyback, Q8H, 5 doses, First dose on Sat05/15/24 at 1600, Last dose on Sat05/16/24 at 2200, Post-op New Bag 05/16/2024 9:22 PM EDT 2 g 100 mL/hr New Bag 05/16/2024 2:30 PM EDT 2 g 100 mL/hr Rate Verify 05/16/2024 6:00 AM EDT 4 g/hr 100 mL/hr cefTRIAXone in dextrose (Rocephin) IVPB 1 g IV Piggyback, 1 g, ONCE, 1 dose, On Sat05/14/24 at 1200, Administer over 30 Minutes New Bag 05/14/2024 2:43 PM EDT 1 g 100 mL/hr chlorHEXIDINE (Periogard) 0.12 % oral rinse 15 mL 15 mL, Oral mucosal membrane, BID (799,1999), First dose on Sat05/15/24 at 2000, Until Discontinued, Include oral/gum/tooth brushing with medication. Use prepackaged oral kit suction tooth brush if available., Post-op Given 05/15/2024 7:48 PM EDT 15 mL CYANOCOBALAMIN (vitamin B-12) tab 1,000 mcg 1,000 mcg, Oral, Daily(AM), First dose on Sat05/18/24 at 0915, Until Discontinued Given 05/20/2024 8:04 AM EDT 1,000 mcg Given 05/19/2024 9:41 AM EDT 1,000 mcg Given 05/18/2024 8:49 AM EDT 1,000 mcg Docusate Sodium (Colace) cap 100 mg 100 mg, Oral, BID (.AM/PM), First dose on Sat05/16/24 at 0900, Until Discontinued, Hold and administer syrup formulation if not able to take this tab PO., Post-op Given 05/20/2024 8:03 AM EDT 100 mg Given 05/18/2024 7:39 AM EDT 100 mg Given 05/17/2024 8:48 PM EDT 100 mg Famotidine (Pepcid) inj 20 mg 20 mg, Intravenous, Q12H, First dose on Sat05/15/24 at 2100, Last dose on Sat05/16/24 at 0900, For 2 doses, Start at first dose interval postop. Give IV push over 2 minutes., Post-op Given 05/16/2024 10:04 AM EDT 20 mg Given 05/15/2024 7:48 PM EDT 20 mg Furosemide (Lasix) inj 40 mg 40 mg, IV Push, ONCE, On Sat05/17/24 at 0100, For 1 dose Given 05/17/2024 1:11 AM EDT 40 mg Furosemide (Lasix) inj 40 mg 40 mg, IV Push, ONCE, On Sat05/17/24 at 1600, For 1 dose Given 05/17/2024 3:49 PM EDT 40 mg Furosemide (Lasix) inj 40 mg 40 mg, IV Push, ONCE, On Sat05/18/24 at 0915, For 1 dose Given 05/18/2024 8:49 AM EDT 40 mg Furosemide (Lasix) inj 40 mg 40 mg, IV Push, ONCE, On Sat05/18/24 at 1600, For 1 dose Given 05/18/2024 4:15 PM EDT 40 mg Furosemide (Lasix) inj 40 mg 40 mg, IV Push, ONCE, On Sat05/19/24 at 0715, For 1 dose Given 05/19/2024 7:35 AM EDT 40 mg Furosemide (Lasix) inj 40 mg 40 mg, IV Push, ONCE, On Sat05/20/24 at 0730, For 1 dose Given 05/20/2024 8:05 AM EDT 40 mg Furosemide (Lasix) tab 40 mg 40 mg, Oral, Daily(AM), First dose (after last modification) on Luann 05/21/24 at 0900, Until Discontinued Glycopyrrolate (Robinul) inj 0.6 mg 0.6 mg, Intravenous, ONCE PRN Other, Reversal of neuromuscular kelly, Starting on Sat05/15/24 at 1221, Until Sat05/15/24 at 1620, For 4 hours, Available in [employer]. If still chemically paralyzed after dose has been administered, contact provider for further guidance. WASTE INFO: Return waste medication to pharmacy in zip lock bag - SPC container., Post-op Given 05/15/2024 2:40 PM EDT 0.6 mg hEParin 1000 UNIT/ML inj 1,000 Units 1,000 Units (rounded from 1,012.5 Units = 15 Units/kg 67.5 kg Adjusted weight), IV Push, PRN Other, If most recent Heparin Assay result is between 0.21 and 0.29 units/mL, Starting on Sat05/13/24 at 1551, Until Sat05/15/24 at 0541, Repeat Heparin Assay 6 hours after bolus is administered. Send message to pharmacy if dose needed. Given 05/14/2024 12:09 AM EDT 1,000 Units hEParin 25,000 units in 250 mL (Xa-Cardiac) infusion Intravenous, at 0-20.25 mL/hr, Start heparin as soon as baseline labs are drawn. Please select this medication from the infusion pump library! Concentration: 100 units/mL Expires 96 hours after spiking on (date) at (hour) , TITRATE, Starting on Sat05/13/24 at 1630, Until Sat05/15/24 at 0541 Restarted 05/15/2024 4:58 AM EDT 13 Units/kg/hr 8.77 mL/hr Nurse Change 05/14/2024 11:35 PM EDT 13 Units/kg/hr 8.78 m L/hr Rate Verify 05/14/2024 11:00 PM EDT 13 Units/kg/hr 8.77 mL /hr hEParin inj 5,000 Units 5,000 Units, Subcutaneous, Q8H, First dose on Sat05/16/24 at 0600, Until Discontinued Given 05/16/2024 9:20 PM EDT 5,000 Units Abdomen Left Lower Given 05/16/2024 2:29 PM EDT 5,000 Units A bdomen Right Lower Given 05/16/2024 5:25 AM EDT 5,000 Units A bdomen Left Upper hEParin inj 5,000 Units 5,000 Units, Subcutaneous, Q8H, First dose on Sat05/19/24 at 1400, Until Discontinued Given 05/20/2024 5:15 AM EDT 5,000 Units Abdomen Right Upper Given 05/19/2024 9:17 PM EDT 5,000 Units A bdomen Left Upper Given 05/19/2024 1:42 PM EDT 5,000 Units A bdomen Left Lower HYDROmorphone (Dilaudid) inj 0.5 mg 0.5 mg, IV Push, Q2H PRN Pain, Severe, Starting on Sat05/15/24 at 1330, Until Sat05/16/24 at 0831 Given 05/15/2024 7:48 PM EDT 0.5 mg Given 05/15/2024 5:21 PM EDT 0.5 mg insulin REGULAR human 100 units in NSS 100 mL INFUSION Final Conc = 1 unit / mL Intravenous, at 1 mL/hr, Target Range for Blood Glucose = 100 to 130 mg/dl, CONTINUOUS, Starting on Sat05/15/24 at 1300, Until Sat05/16/24 at 0459, Post-op Rate Verify 05/16/2024 4:00 AM EDT 2 Units/hr 2 mL/h r Rate Change 05/16/2024 12:13 AM EDT 2 Units/hr 2 mL/hr Rate Verify 05/15/2024 10:00 PM EDT 1 Units/hr 1 mL/hr isolyte-S pH 7.4 infusion Intravenous, at 1,000 mL/hr, During 1st 12hrs postop may give Isolyte, 500ml over 30 minutes x 1. If Systolic BP less than 100 and PA diastolic less than 15: may repeat x [address] Surgeon or PA-C if not immediately effective. Plasma-LYTE 148, isolyte-S, and isolyte-S pH 7.4 are considered equivalent - including for MAR barcode scanning., PRN, 2 doses, Starting on Sat05/15/24 at 1221, Until Sat05/15/24 at 1330, Post-op New Bag 05/15/2024 1:30 PM EDT 500 mL 1000 mL/hr New Bag 05/15/2024 12:45 PM EDT 500 mL 1000 mL/hr keTORolac (Toradol) 15 MG/ML inj 15 mg 15 mg, IV Push, ONCE, On 05/16/24 at 1545, For 1 dose Given 05/16/2024 3:07 PM EDT 15 mg Lisinopril (Prinivil) tab 20 mg 20 mg, Oral, Daily(AM), First dose on Luann 05/14/24 at 0900, Until Discontinued Given 05/14/2024 8:19 AM EDT 20 mg magnesium sulfate 1 g in d5w 100mL LOCKED DOSE 1 g, IV Piggyback, PRN Other, Magnesium replacement, Starting on Sat05/15/24 at 1221, Until Sat05/20/24 at 1713, For 4 doses, 1. Serum creatinine must be less than 1.5 2. Current urine output must be greater than 30 mL/hr. Magnesium level 1.5 - 2.2: Give 1 gm over 1 hour x 1 dose Magnesium level less than 1.5: Give 1 gm over 1 hour x 2 doses Repeat serum magnesium level 1 hour after completion of 2nd dose, Post-op New Bag 05/20/2024 8:56 AM EDT 1 g 100 mL/hr metOLazone (Zaroxolyn) tab 2.5 mg 2.5 mg, Oral, ONCE, On Sat05/19/24 at 0715, For 1 dose Given 05/19/2024 7:35 AM EDT 2.5 mg Mirtazapine (Remeron) tab 15 mg 15 mg, Oral, QHS, First dose on Sat05/17/24 at 2200, Until Discontinued Given 05/19/2024 9:17 PM EDT 15 mg Given 05/18/2024 9:22 PM EDT 15 mg Given 05/17/2024 8:49 PM EDT 15 mg naloxone (Narcan) 0.4 MG/ML inj 0.08 mg 0.08 mg, IV Push, PRN Other, If patient is oversedated or Respiratory Rate less than 8, Starting on Sat05/15/24 at 1221, Until Sat05/20/24 at 1713, Call provider if patient is oversedated or Respiratory Rate is less than 8, Post-op neostigmine methylsulfate 10 MG/10ML inj 3 mg 3 mg, Intravenous, ONCE PRN Other, Reversal of neuromuscular kelly, Starting on Sat05/15/24 at 1221, Until Sat05/15/24 at 1620, For 4 hours, Available in [employer]. If still chemically paralyzed after dose has been administered, contact provider for further guidance., Post-op Given 05/15/2024 2:43 PM EDT 3 mg NORepinephrine (Levophed) 4 mg in 250 ml D5W STANDARD CONCENTRATION 16 mcg/ml Order Mode: Custom Provider Titration Order, Starting Rate (mcg/min): 2, Clinical Target: Custom MAP, Custom SBP, Custom Target MAP Range: Greater than 65, Custom Target SBP Range (mmHG): Less than 120, Increase or Decrease Infusion by up to (mcg/min): 1 mcg/min, Titrate no more frequently than (mins): Every 5 seconds, Maximum Dose (mcg/min): 10, Patient Transfer: Patient should be transferred to a higher level of care if rate exceeds nursing unit specific guidelines., 0-10 mcg/min (0-37.5 mL/hr), If you have reached the max rate, call for the on-call CVTS TARA, TITRATE, Starting on Sat05/15/24 at 1300, Until Sat05/15/24 at 1325, Central IV, Post-op Rate Change 05/15/2024 1:18 PM EDT 1 mcg/min 3.75 mL/hr Rate Change 05/15/2024 1:13 PM EDT 2 mcg/min 7.5 mL/hr Restarted 05/15/2024 1:12 PM EDT 1 mcg/min 3.75 mL/hr NORepinephrine (Levophed) 4 mg in 250 ml D5W STANDARD CONCENTRATION 16 mcg/ml Order Mode: Standard Titration, Starting Rate (mcg/min): 2, Clinical Target: MAP 65-70, Infusion Titration Adjustments: Increase or Decrease by up to 5 mcg/min no more frequently than every 2 minutes to achieve specified goal, Maximum Dose: 30 mcg/min for nurse titration. Dose titrations 31-90 mcg/min require provider order. If administering vasopressor peripherally, please refer to the Peripheral Vasopressor Guidelines., Patient Transfer: Patient should be transferred to a higher level of care if rate exceeds nursing unit specific guidelines., 0-30 mcg/min (0-112.5 mL/hr), TITRATE, Starting on 05/16/24 at 0145, Until 05/16/24 at 0603, Central IV Rate Change 05/16/2024 3:32 AM EDT 4 mcg/min 15 mL/hr Rate Change 05/16/2024 3:23 AM EDT 6 mcg/min 22.5 mL/hr Rate Change 05/16/2024 3:20 AM EDT 4 mcg/min 15 mL/hr NORepinephrine (Levophed) 4 mg in 250 ml D5W STANDARD CONCENTRATION 16 mcg/ml Order Mode: Standard Titration, Starting Rate (mcg/min): 2, Clinical Target: Custom MAP, Custom Target MAP Range: >65, Infusion Titration Adjustments: Increase or Decrease by up to 5 mcg/min no more frequently than every 2 minutes to achieve specified goal, Maximum Dose: 30 mcg/min for nurse titration. Dose titrations 31-90 mcg/min require provider order. If administering vasopressor peripherally, please refer to the Peripheral Vasopressor Guidelines., Patient Transfer: Patient should be transferred to a higher level of care if rate exceeds nursing unit specific guidelines., 0-30 mcg/min (0-112.5 mL/hr), TITRATE, Starting on 05/16/24 at 0845, Until 05/16/24 at 1640, Central IV Rate Verify 05/16/2024 11:00 AM EDT 0.5 mcg/min 1.87 mL/hr Rate Verify 05/16/2024 10:00 AM EDT 0.5 mcg/min 1.87 mL/hr Rate Change 05/16/2024 9:25 AM EDT 0.5 mcg/min 1.87 mL/hr ondansetron (Zofran) inj 4 mg 4 mg, IV Push, Q6H PRN Other, May use for nausea or vomiting if patient unable to take oral ondansetron, Starting on Sat05/15/24 at 1221, Until Sat05/20/24 at 1713, Post-op Given 05/16/2024 6:27 AM EDT 4 mg ondansetron ODT (Zofran) tab 4 mg 4 mg, On Tongue, Q6H PRN Nausea, Vomiting, Starting on Sat05/15/24 at 1221, Until Sat05/20/24 at 1713, Post-op Oral Hygiene: Mouth Swab with dentifrice Oral, Q4H LIMITED (00;04;12;16), First dose on Sat05/15/24 at 1600, Until Discontinued, To be used with 1.5% hydrogen peroxide solution or 0.05% cetylpyridium chloride oral rinse, Post-op Given 05/15/2024 4:05 PM EDT 1 Kit oxyCODONE (Oxy IR) tab 5 mg 5 mg, Oral, Q4H PRN Pain, Severe, Pain, Moderate, Starting on Sat05/15/24 at 1331, Until Sat05/16/24 at 0831, Post-op Given 05/15/2024 11:18 PM EDT 5 mg oxygen GAS Inhalation, OXYGEN, First dose on Sat05/15/24 at 1600, Until Discontinued, Device/Managed by: NIV or Ventilator Device, Goal SPO2 (%): 94 or greater, Notify Provider: For sudden DECREASE in resting SPO2 to less than 85% and when escalating delivery device., Initial FiO2 (%): 100, Titration Interval: Q2 minutes and as needed., If PO2 is greater than 300, decrease to 50% FiO2. If PO2 is 200-300, decrease to 60% FiO2. If PO2 is 150-200, decrease to 70% FiO2. If PO2 is 100-150, decrease to 80% FiO2. Always maintain saturations 95% or greater Changes can also be made by Resp Therapy per Vent Weaning Protocol Oxygen On 05/15/2024 4:00 PM EDT 40 %(Oxygen) oxygen GAS Inhalation, OXYGEN, First dose on Sat05/15/24 at 1600, Until Discontinued, Device/Managed by: Low Flow Device, Goal SPO2 (%): 91-95, Starting Device: Nasal Cannula, Initial Flow Rate (LPM): 2. Apply post extubation., Lowest Support: Nasal Cannula: Flow 0-6 LPM. Titrate up/down by 1 LPM., Titration Interval: Q2 minutes and as needed., Notify Provider: For sudden DECREASE in resting SPO2 to less than 85% and when escalating delivery device., Wean patient off Oxygen when the oxygen saturation is greater than or equal to 93% Oxygen On 05/19/2024 12:00 AM EDT 2 L/min(Oxygen) Oxygen On 05/18/2024 4:00 PM EDT Oxygen On 05/18/2024 8:00 AM EDT oxygen GAS Inhalation, OXYGEN, First dose on Mather 05/17/24 at 0230, Until Discontinued, Device/Managed by: Low Flow Device, Goal SPO2 (%): 91-95, Starting Device: Intermediate Nasal Cannula, Initial Flow Rate (LPM): 7, Lowest Support: Intermediate Nasal Cannula: Flow 7-15 LPM. Titrate up/down by 1 LPM., Titration Interval: Q2 minutes and as needed., Notify Provider: For sudden DECREASE in resting SPO2 to less than 85% and when escalating delivery device., Wean patient off Oxygen when the oxygen saturation is greater than or equal to 93% Oxygen On 05/19/2024 12:00 AM EDT 2 L/min(Oxygen) Oxygen On 05/18/2024 4:00 PM EDT Oxygen On 05/18/2024 8:00 AM EDT pantoprazole (Protonix) tab 40 mg 40 mg, Oral, Daily(AM), First dose on [facility] 05/14/24 at 0900, Until Discontinued, This med should NOT be Crushed or Chewed Given 05/20/2024 8:03 AM EDT 40 mg Given 05/19/2024 9:41 AM EDT 40 mg Given 05/18/2024 7:39 AM EDT 40 mg Polyethylene Glycol 3350 (Miralax) oral powder 17 g 17 g (1 Packet), Oral, Daily(AM), First dose on Mather 05/17/24 at 0900, Until Discontinued, Mix in 8 oz of water, juice, soda, coffee, or tea. Given 05/19/2024 9:41 AM EDT 17 g Given 05/18/2024 7:39 AM EDT 17 g Given 05/17/2024 8:53 AM EDT 17 g potassium chloride 20 mEq in 50 mL ivpb LOCKED DOSE 20 mEq, Central IV, PRN, Starting on Sat05/15/24 at 1221, Until Sat05/20/24 at 1220, Other, Potassium repletion, Administer over 60 Minutes, Patients MUST meet ALL the following criteria. IF ANY criteria are not met, Do Not Administer, and call covering provider for orders 1. Serum creatinine must be less than 1.5 2. Current urine output must be greater than 30 mL/hr. Potassium repletion based on level 4.0 - 4.2: infuse 20mEq/50mL over one hour x 1 dose 3.5 - 3.9: infuse 20mEq/50mL over one hour x 2 doses 3.0 - 3.4: infuse 20mEq/50mL over one hour x 3 doses If Potassium less than 3.0, Begin 20mEq/50mL over 30 minutes x 1 dose and Immediately call covering provider for orders., Post-op New Bag 05/16/2024 1:05 AM EDT 20 mEq 50 mL/hr potassium chloride ER tab 20 mEq 20 mEq, Oral, PRN Other, Potassium repletion, Starting on Sat05/15/24 at 1221, Until Sat05/20/24 at 1713, Patients MUST meet ALL the following criteria. IF ANY criteria are not met, Do Not Administer, and call covering provider for orders 1. Serum creatinine must be less than 1.5 2. Current urine output must be greater than 30 mL/hr. 3. Patient is taking medications by mouth (PO). Potassium repletion based on level 4.0 - 4.2, Give 20mEq x 1 dose 3.5 - 3.9, Give 20mEq every 2 hours x 2 doses 3.0 - 3.4, Give 20mEq every 2 hours x 3 doses If potassium is less than 3.0, Give 20mEq x1 dose and immediately call the covering provider for orders. 4. BMP result must be no older than 24 hours., Post-op Given 05/19/2024 11:52 AM EDT 20 mEq Given 05/19/2024 9:42 AM EDT 20 mEq Given 05/18/2024 7:42 AM EDT 20 mEq potassium chloride ER tab 20 mEq 20 mEq, Oral, ONCE, On Sat05/18/24 at 0915, For 1 dose, This med should NOT be Crushed or Chewed Given 05/18/2024 8:50 AM EDT 20 mEq potassium chloride ER tab 20 mEq 20 mEq, Oral, ONCE, On Sat05/18/24 at 1600, For 1 dose, This med should NOT be Crushed or Chewed Given 05/18/2024 4:15 PM EDT 20 mEq potassium chloride ER tab 20 mEq 20 mEq, Oral, ONCE, On Sat05/19/24 at 0715, For 1 dose, This med should NOT be Crushed or Chewed Given 05/19/2024 7:35 AM EDT 20 mEq potassium chloride ER tab 20 mEq 20 mEq, Oral, Daily(AM), First dose on Sat05/20/24 at 0900, Until Discontinued, This med should NOT be Crushed or Chewed Given 05/20/2024 8:05 AM EDT 20 mEq potassium chloride ER tab 20 mEq 20 mEq, Oral, ONCE, On Sat05/20/24 at 0730, For 1 dose, This med should NOT be Crushed or Chewed Given 05/20/2024 8:04 AM EDT 20 mEq potassium chloride ER tab 40 mEq 40 mEq, Oral, ONCE, On Sat05/15/24 at 0515, For 1 dose, This med should NOT be Crushed or Chewed Given 05/15/2024 6:02 AM EDT 40 mEq vitamins plus 1 mg folic acid tab 1 Tablet 1 Tablet, Oral, DAILY NOON, First dose on Sat05/16/24 at 1200, Until Discontinued, Post-op Given 05/19/2024 11:52 AM EDT 1 Tablet Given 05/18/2024 12:09 PM EDT 1 Tablet Given 05/17/2024 11:46 AM EDT 1 Tablet Propofol 10 mg/mL (1%) infusion Order Mode: Standard Titration, Starting Rate (mcg/kg/min): 5, Infusion Titration Adjustments: Increase or decrease by up to 10 mcg/kg/min no more frequently than every 5 minutes to maintain specified goal RASS, Maximum Dose: 50 mcg/kg/min for nurse titration. Dose titrations 51-80 mcg/kg/min require provider order., Notes to Nursing: Reorient the patient, assess and treat pain separately. Abort acute agitation by seeking provider assistance., 0-50 mcg/kg/min 81.4 kg (0-24.42 mL/hr), Wean to off when patient meets criteria outlined in the Cardiac Surgery Ventilator Weaning Protocol. Sedation Vacation Daily., TITRATE, Starting on Sat05/15/24 at 1300, Until Sat05/15/24 at 2056, Intravenous, Post-op Rate Change 05/15/2024 3:07 PM EDT 10 mcg/kg/min 4.88 mL/hr Rate Change 05/15/2024 2:53 PM EDT 15 mcg/kg/min 7.32 mL/h r Rate Change 05/15/2024 2:44 PM EDT 20 mcg/kg/min 9.76 mL/h r senna (Senokot) 1 Tablet 1 Tablet, Oral, BID (.AM/PM), First dose on Sat05/16/24 at 0900, Until Discontinued, Hold if patient develops diarrhea or has greater than 2 BMs in any one day., Post-op Given 05/20/2024 8:04 AM EDT 1 Tablet Given 05/18/2024 7:40 AM EDT 1 Tablet Given 05/17/2024 8:48 PM EDT 1 Tablet Simethicone (Mylicon) chew tab 80 mg 80 mg, Oral, TID(AM/NOON/HS), First dose on Sat05/16/24 at 0615, Last dose on Sat05/17/24 at 2200, For 2 days, Tablets need to be chewed before swallowing! Given 05/17/2024 11:46 AM EDT 80 mg Given 05/17/2024 5:50 AM EDT 80 mg Given 05/16/2024 9:19 PM EDT 80 mg sodium bicarbonate 8.4 % inj 50 mEq 50 mEq, IV Push, ONCE, On Sat05/15/24 at 1500, For 1 dose Given 05/15/2024 2:45 PM EDT 50 mEq sodium chloride 0.9 % flush central line 10 mL 10 mL, IV Push, Q8H, First dose on Sat05/15/24 at 1400, Until Discontinued, Capped Central Line Ports, Post-op Given 05/18/2024 6:00 AM EDT 10 mL Given 05/17/2024 10:00 PM EDT 10 mL Given 05/17/2024 2:04 PM EDT 10 mL sodium chloride 0.9 % flush peripheral leeann 3 mL 3 mL, IV Push, QSHIFT, First dose on Sat05/15/24 at 1600, Until Discontinued, Do not flush if lock, PICC, or central line not in place; IV infusing or unable to flush., Post-op Given 05/17/2024 7 :35 AM EDT 3 mL Given 05/17/2024 12:00 AM EDT 3 mL Given 05/16/2024 3:44 PM EDT 3 mL sodium chloride 0.9 % flush peripheral leeann 3 mL 3 mL, IV Push, Q8H, First dose (after last modification) on Sat05/17/24 at 1400, Until Discontinued, Do not flush if lock, PICC, or central line not in place; IV infusing or unable to flush., Post-op Given 05/20/2024 5:15 AM EDT 3 mL Given 05/19/2024 9:17 PM EDT 3 mL Given 05/19/2024 1:43 PM EDT 3 mL traMADol (Ultram) tab 25 mg 25 mg, Oral, Q6H, First dose on Sat05/16/24 at 0600, Last dose on Sat05/17/24 at 0000, For 4 doses, Post-op Given 05/16/2024 6:05 PM EDT 25 mg Given 05/16/2024 12:07 PM EDT 25 mg traMADol (Ultram) tab 25 mg 25 mg, Oral, Q6H PRN Pain, Moderate, Starting on Sat05/16/24 at 0600, Until Sat05/20/24 at 1713, Post-op Given 05/19/2024 7:46 AM EDT 25 mg documented in this encounter Active and Recently Administered Medications Times are shown in EDT. Scheduled Medication Order 05/18/2024 05/19/2024 05/20/2024 Acetaminophen (Tylenol) tab 975 mg 975 mg, Oral, Q8H, First dose on Sat05/15/24 at 1400, Last dose on Sat05/20/24 at 0600, For 5 days, Avoid in patients with severe hepatic impairment or severe active liver disease. Use for 5 days, Post-op 0600 (Not Given - Provider: PADMINI Baldwin - Reason: Parameter(s) Not Met - Comment: pt sleeping)1209 (Given - Provider: Mariam Byers RN)2122 (Given - Provider: Tamy Molina, RN) 0539 (Given - Provider: Tamy Molina RN)1342 (Given - Provider: Donavan Fitch RN)2117 (Given - Provider: Tamy Molina RN) 0514 (Given - Provider: Tamy Molina RN) amiodarone (Cordarone) tab 200 mg 200 mg, Oral, WITH MEALS, First dose on Sat05/17/24 at 0800, Until Discontinued 0739 (Given - Provider: Mariam Byers RN)1209 (Given - Provider: Mariam Byers RN)1615 (Given - Provider: Mariam Byers RN) 0735 (Given - Provider: Donavan Fitch RN)1151 (Given - Provider: Donavan Fitch RN)1657 (Given - Provider: Donavan Fitch RN) 0804 (Given - Provider: Jacky Singh RN)1200 (Due) aspirin chew tab 81 mg 81 mg, Oral, Daily(AM), First dose on Sat05/16/24 at 0900, Until Discontinued, Start on POD#1, Post-op 0739 (Given - Provider: Mariam Byers RN) 0941 (Given - Provider: Donavan Fitch RN) 0803 (Given - Provider: Jacky Singh RN) Atenolol (Tenormin) tab 12.5 mg (CANCELED) 12.5 mg, Oral, Daily(AM), First dose on Sat05/18/24 at 0630, Until Discontinued, Hold for HR less than 60 or SBP below 100 and notify service if dose is held 0629 (Given - Provider: PADMINI Baldwin) Atenolol (Tenormin) tab 25 mg 25 mg, Oral, Daily(AM), First dose (after last modification) on Sat05/19/24 at 0900, Until Discontinued, Hold for HR less than 60 or SBP below 100 and notify service if dose is held 0941 (Given - Provider: Donavan Fitch RN) 0804 (Given - Provider: Jacky Singh RN) atorvaSTATin (Lipitor) tab 80 mg 80 mg, Oral, Daily(AM), First dose on Luann 05/14/24 at 0900, Until Discontinued 0739 (Given - Provider: Mariam Byers RN) 09 (Given - Provider: Donavan Fitch RN) 08 (Given - Provider: Jacky Singh RN) CYANOCOBALAMIN (vitamin B-12) tab 1,000 mcg 1,000 mcg, Oral, Daily(AM), First dose on Sat05/18/24 at 0915, Until Discontinued 0849 (Given - Provider: Mariam Byers RN) 09 (Given - Provider: Donavan Fitch RN) 08 (Given - Provider: Jacky Singh RN) Docusate Sodium (Colace) cap 100 mg(Linked Group 1) 100 mg, Oral, BID (.AM/PM), First dose on Sat05/16/24 at 0900, Until Discontinued, Hold and administer syrup formulation if not able to take this tab PO., Post-op 0739 (Given - Provider: Mariam Byers RN)2100 (Not Given - Provider: Merissa Virgen RN - Reason: Parameter(s) Not Met) 09 (Not Given - Provider: Donavan Fitch RN - Reason: Parameter(s) Not Met)2100 (Not Given - Provider: Tamy Molina RN - Reason: Refused-Notify Provider) 802 (Given - Provider: Jacky Singh RN) Furosemide (Lasix) inj 40 mg (COMPLETED) 40 mg, IV Push, ONCE, On Sat05/18/24 at 0915, For 1 dose 0849 (Given - Provider: Mariam Byers RN) Furosemide (Lasix) inj 40 mg (COMPLETED) 40 mg, IV Push, ONCE, On Sat05/18/24 at 1600, For 1 dose 1615 (Given - Provider: Mariam Byers RN) Furosemide (Lasix) inj 40 mg (COMPLETED) 40 mg, IV Push, ONCE, On Sat05/19/24 at 0715, For 1 dose 0735 (Given - Provider: Donavan Fitch RN) Furosemide (Lasix) inj 40 mg (COMPLETED) 40 mg, IV Push, ONCE, On Sat05/20/24 at 0730, For 1 dose 0805 (Given - Provider: Jacky Singh RN) Furosemide (Lasix) tab 40 mg 40 mg, Oral, Daily(AM), First dose (after last modification) on Sat05/21/24 at 0900, Until Discontinued hEParin inj 5,000 Units 5,000 Units, Subcutaneous, Q8H, First dose on Sat05/19/24 at 1400, Until Discontinued 1342 (Given - Provider: Donavan Fitch RN)211 (Given - Provider: Tamy Molina, TAWANNA) 0515 (Given - Provider: Tamy Molina RN) metOLazone (Zaroxolyn) tab 2.5 mg (COMPLETED) 2.5 mg, Oral, ONCE, On Sat05/19/24 at 0715, For 1 dose 0735 (Given - Provider: Donavan Fitch RN) Mirtazapine (Remeron) tab 15 mg 15 mg, Oral, QHS, First dose on Sat05/17/24 at 2200, Until Discontinued 2121 (Given - Provider: Tamy Molina, TAWANNA) 2116 (Given - Provider: Tamy Molina, RN) oxygen GAS Inhalation, OXYGEN, First dose on Sat05/15/24 at 1600, Until Discontinued, Device/Managed by: Low Flow Device, Goal SPO2 (%): 91-95, Starting Device: Nasal Cannula, Initial Flow Rate (LPM): 2. Apply post extubation., Lowest Support: Nasal Cannula: Flow 0-6 LPM. Titrate up/down by 1 LPM., Titration Interval: Q2 minutes and as needed., Notify Provider: For sudden DECREASE in resting SPO2 to less than 85% and when escalating delivery device., Wean patient off Oxygen when the oxygen saturation is greater than or equal to 93% 0000 (Oxygen On - Provider: PADMINI Baldwin)0800 (Oxygen On - Provider: Mariam Byesr RN)1600 (Oxygen On - Provider: Mariam Byers RN) 0000 (Oxygen On - Provider: Ashok Yarbrough RN)0800 (Oxygen Off - Provider: Donavan Fitch RN)1600 (Oxygen Off - Provider: Donavan Fitch RN) 0000 (Oxygen Off - Provider: Tamy Molina RN)0800 (Oxygen Off - Provider: Jacky Singh, TAWANNA) oxygen GAS Inhalation, OXYGEN, First dose on Sat05/17/24 at 0230, Until Discontinued, Device/Managed by: Low Flow Device, Goal SPO2 (%): 91-95, Starting Device: Intermediate Nasal Cannula, Initial Flow Rate (LPM): 7, Lowest Support: Intermediate Nasal Cannula: Flow 7-15 LPM. Titrate up/down by 1 LPM., Titration Interval: Q2 minutes and as needed., Notify Provider: For sudden DECREASE in resting SPO2 to less than 85% and when escalating delivery device., Wean patient off Oxygen when the oxygen saturation is greater than or equal to 93% 0000 (Oxygen Off - Provider: PADMINI Baldwin)0800 (Oxygen On - Provider: Mariam Byers RN)1600 (Oxygen On - Provider: Mariam Byers RN) 0000 (Oxygen On - Provider: Ashok Yarbrough RN)0800 (Oxygen Off - Provider: Donavan Fitch RN)1600 (Oxygen Off - Provider: Donavan Fitch RN) 0000 (Oxygen Off - Provider: Tamy Molina RN)0800 (Oxygen Off - Provider: Jacky Singh RN) pantoprazole (Protonix) tab 40 mg 40 mg, Oral, Daily(AM), First dose on Luann 05/14/24 at 0900, Until Discontinued, This med should NOT be Crushed or Chewed 0739 (Given - Provider: Mariam Byers RN) 0941 (Given - Provider: Donavan Fitch RN) 0803 (Given - Provider: Jacky Singh, TAWANNA) Polyethylene Glycol 3350 (Miralax) oral powder 17 g (CANCELED) 17 g (1 Packet), Oral, Daily(AM), First dose on Sat05/17/24 at 0900, Until Discontinued, Mix in 8 oz of water, juice, soda, coffee, or tea. 0739 (Given - Provider: Mariam Byers RN) 0941 (Given - Provider: Donavan Fitch RN) potassium chloride ER tab 20 mEq (COMPLETED) 20 mEq, Oral, ONCE, On Sat05/18/24 at 0915, For 1 dose, This med should NOT be Crushed or Chewed 0850 (Given - Provider: Mariam Byers RN) potassium chloride ER tab 20 mEq (COMPLETED) 20 mEq, Oral, ONCE, On Sat05/18/24 at 1600, For 1 dose, This med should NOT be Crushed or Chewed 1615 (Given - Provider: Mariam Byers RN) potassium chloride ER tab 20 mEq (COMPLETED) 20 mEq, Oral, ONCE, On Sat05/19/24 at 0715, For 1 dose, This med should NOT be Crushed or Chewed 0735 (Given - Provider: Donavan Fitch RN) potassium chloride ER tab 20 mEq 20 mEq, Oral, Daily(AM), First dose on Sat05/20/24 at 0900, Until Discontinued, This med should NOT be Crushed or Chewed 0805 (Given - Provider: Jacky Singh RN) potassium chloride ER tab 20 mEq (COMPLETED) 20 mEq, Oral, ONCE, On Sat05/20/24 at 0730, For 1 dose, This med should NOT be Crushed or Chewed 0804 (Given - Provider: Jacky Singh RN) vitamins plus 1 mg folic acid tab 1 Tablet 1 Tablet, Oral, DAILY NOON, First dose on Sat05/16/24 at 1200, Until Discontinued, Post-op 1209 (Given - Provider: Mariam Byers RN) 1152 (Given - Provider: Donavan Fitch RN) 1200 (Due) senna (Senokot) 1 Tablet(Linked Group 2) 1 Tablet, Oral, BID (.AM/PM), First dose on Sat05/16/24 at 0900, Until Discontinued, Hold if patient develops diarrhea or has greater than 2 BMs in any one day., Post-op 0740 (Given - Provider: Mariam Byers RN)2100 (Not Given - Provider: Merissa Virgen RN - Reason: Parameter(s) Not Met) 0900 (Not Given - Provider: Donavan Fitch RN - Reason: Parameter(s) Not Met)2100 (Not Given - Provider: Tamy Molina RN - Reason: Refused-Notify Provider) 0804 (Given - Provider: Jacky Singh RN) sodium chloride 0.9 % flush central line 10 mL 10 mL, IV Push, Q8H, First dose on Sat05/15/24 at 1400, Until Discontinued, Capped Central Line Ports, Post-op 0600 (Given - Provider: PADMINI Baldwin)1400 (Not Given - Provider: Mariam Byers RN - Reason: Parameter(s) Not Met)2200 (Not Given - Provider: Merissa Virgen RN - Reason: Parameter(s) Not Met - Comment: no longer has central access) 0600 (Not Given - Provider: Tamy Molina RN - Reason: Parameter(s) Not Met)1400 (Not Given - Provider: Donavan Fitch RN - Reason: Parameter(s) Not Met)2200 (Not Given - Provider: Tamy Molina RN - Reason: Parameter(s) Not Met) 0600 (Not Given - Provider: Tamy Molina RN - Reason: Parameter(s) Not Met) sodium chloride 0.9 % flush peripheral leeann 3 mL 3 mL, IV Push, Q8H, First dose (after last modification) on Sat05/17/24 at 1400, Until Discontinued, Do not flush if lock, PICC, or central line not in place; IV infusing or unable to flush., Post-op 0600 (Given - Provider: PADMINI Baldwin)1400 (Given - Provider: Mariam Byers RN)2200 (Given - Provider: Merissa Virgen RN) 0600 (Given - Provider: Tamy Molina RN)1343 (Given - Provider: Donavan Fitch RN)2117 (Given - Provider: Tamy Molina RN) 0515 (Given - Provider: Tamy Molina RN) Continuous Medication Order 05/18/2024 05/19/2024 05/20/2024 amiodarone (Cordarone) 900 mg in NSS 500 mL INFUSION (CANCELED) Central IV, 0.5 mg/min (16.6667 mL/hr, rounded to 16.67 mL/hr), Let amio gtt run out, CONTINUOUS CALL PHARMACY TO DISPENSE, Starting on Sat05/17/24 at 1445, Until Sat05/18/24 at 2358 0321 (KVO - Provider: PADMINI Baldwin)0332 (Stopped - Provider: PADMINI Baldwin) PRN Medication Order 05/18/2024 05/19/2024 05/20/2024 Acetaminophen (Tylenol) tab 975 mg 975 mg, Oral, Q6H PRN Pain, Mild, Starting on Sat05/20/24 at 0000, Until Sat05/20/24 at 1713, Begin after around the clock acetaminophen order discontinued (S+5). Maximum 4 g acetaminophen/day. Avoid in patients with severe hepatic impairment or severe active liver disease., Post-op atropine sulfate inj 1 mg 1 mg, IV Push, PRN Other, X1 PRN hemodynamically significant bradydysrythmias and call CT Surgeon od [place], Starting on Sat05/15/24 at 1221, Until Sat05/20/24 at 1713, For 1 dose, Post-op Bisacodyl (Dulcolax) supp 10 mg 10 mg, Rectal, DAILY PRN Constipation, Starting on Sat05/17/24 at 0800, Until Sat05/20/24 at 1713, Post-op calcium CHLORide 10 % inj 1 g 1 g, IV Push, PRN Other, Calcium Replacement, Starting on Sat05/15/24 at 1221, Until Sat05/20/24 at 1713, For 1 dose, Ionized calcium is less than 1 and MAP less than 80, Post-op magnesium sulfate 1 g in d5w 100mL LOCKED DOSE 1 g, IV Piggyback, PRN Other, Magnesium replacement, Starting on Sat05/15/24 at 1221, Until Sat05/20/24 at 1713, For 4 doses, 1. Serum creatinine must be less than 1.5 2. Current urine output must be greater than 30 mL/hr. Magnesium level 1.5 - 2.2: Give 1 gm over 1 hour x 1 dose Magnesium level less than 1.5: Give 1 gm over 1 hour x 2 doses Repeat serum magnesium level 1 hour after completion of 2nd dose, Post-op 0856 (New Bag - Provider: Jacky Singh RN)171 (Due: Stopped) naloxone (Narcan) 0.4 MG/ML inj 0.08 mg 0.08 mg, IV Push, PRN Other, If patient is oversedated or Respiratory Rate less than 8, Starting on Sat05/15/24 at 1221, Until Sat05/20/24 at 1713, Call provider if patient is oversedated or Respiratory Rate is less than 8, Post-op ondansetron (Zofran) inj 4 mg(Linked Group 3) 4 mg, IV Push, Q6H PRN Other, May use for nausea or vomiting if patient unable to take oral ondansetron, Starting on Sat05/15/24 at 1221, Until Sat05/20/24 at 1713, Post-op ondansetron ODT (Zofran) tab 4 mg(Linked Group 3) 4 mg, On Tongue, Q6H PRN Nausea, Vomiting, Starting on Sat05/15/24 at 1221, Until Sat05/20/24 at 1713, Post-op potassium chloride 20 mEq in 50 mL ivpb LOCKED DOSE 20 mEq, Central IV, PRN, Starting on Sat05/15/24 at 1221, Until Sat05/20/24 at 1220, Other, Potassium repletion, Administer over 60 Minutes, Patients MUST meet ALL the following criteria. IF ANY criteria are not met, Do Not Administer, and call covering provider for orders 1. Serum creatinine must be less than 1.5 2. Current urine output must be greater than 30 mL/hr. Potassium repletion based on level 4.0 - 4.2: infuse 20mEq/50mL over one hour x 1 dose 3.5 - 3.9: infuse 20mEq/50mL over one hour x 2 doses 3.0 - 3.4: infuse 20mEq/50mL over one hour x 3 doses If Potassium less than 3.0, Begin 20mEq/50mL over 30 minutes x 1 dose and Immediately call covering provider for orders., Post-op potassium chloride ER tab 20 mEq 20 mEq, Oral, PRN Other, Potassium repletion, Starting on Sat05/15/24 at 1221, Until Sat05/20/24 at 1713, Patients MUST meet ALL the following criteria. IF ANY criteria are not met, Do Not Administer, and call covering provider for orders 1. Serum creatinine must be less than 1.5 2. Current urine output must be greater than 30 mL/hr. 3. Patient is taking medications by mouth (PO). Potassium repletion based on level 4.0 - 4.2, Give 20mEq x 1 dose 3.5 - 3.9, Give 20mEq every 2 hours x 2 doses 3.0 - 3.4, Give 20mEq every 2 hours x 3 doses If potassium is less than 3.0, Give 20mEq x1 dose and immediately call the covering provider for orders. 4. BMP result must be no older than 24 hours., Post-op 0742 (Given - Provider: Mariam Byers RN)0849 (Entry Error - Provider: Mariam Byers, TAWANNA) 0942 (Given - Provider: Donavan Fitch RN)1152 (Given - Provider: Donavan Fitch RN) traMADol (Ultram) tab 25 mg 25 mg, Oral, Q6H PRN Pain, Moderate, Starting on 05/16/24 at 0600, Until Sat05/20/24 at 1713, Post-op 0746 (Given - Provider: Donavan Fitch RN) Linked Groups Order Group 1: Docusate Sodium (Colace) cap 100 mgJump to med 100 mg, Oral, BID (.AM/PM), First dose on 05/16/24 at 0900, Until Discontinued, Hold and administer syrup formulation if not able to take this tab PO., Post-op Or Docusate Sodium (Colace) oral liquid 100 mg (CANCELED) 100 mg, NG Tube, BID (.AM/PM), First dose on 05/16/24 at 0900, Until Discontinued, Post-op Group 2: senna (Senokot) 1 TabletJump to med 1 Tablet, Oral, BID (.AM/PM), First dose on 05/16/24 at 0900, Until Discontinued, Hold if patient develops diarrhea or has greater than 2 BMs in any one day., Post-op Or senna (Senokot) 1 Tablet (CANCELED) 1 Tablet, NG Tube, BID (.AM/PM), First dose on 05/16/24 at 0900, Until Discontinued, Hold if patient develops diarrhea or has greater than 2 bm's in any one day., Post-op Group 3: ondansetron ODT (Zofran) tab 4 mgJump to med 4 mg, On Tongue, Q6H PRN Nausea, Vomiting, Starting on Sat05/15/24 at 1221, Until Sat05/20/24 at 1713, Post-op Or ondansetron (Zofran) inj 4 mgJump to med 4 mg, IV Push, Q6H PRN Other, May use for nausea or vomiting if patient unable to take oral ondansetron, Starting on Sat05/15/24 at 1221, Until Sat05/20/24 at 1713, Post-op documented in this encounter Advance Directives * [...] and were consensually agreed upon. 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
--- OUTSIDE RECORDS SUMMARY | 2024-06-06 15:45 | External Medical Summary | Summary of Care ---
Author Name Unknown Organization [facility] Address [address] [place] [address] Phone [phone] Care Team Providers Care Automation Tester Name Role Phone Jasmina Taylor MD Primary Care Provide r Encounter Details Date Type Department Care Team (Late st Contact Info) Description 05/21/2024 Telephone Cardiothoracic Surg [facility] [place] [address] [place] [address] Maria Victoria Joseph RN Allergies Active Allergy Reactions Criticality Noted Date [...] mRNA, LNP-s, No Pre serve, 2-Dose Series ([employer]) 08/22/2021,12/14/2020,11/23/2020 COVID-19, LNP-s, No Preserve , Clive-sucrose, Ages 12+ (Pfizer) 02/13/2022 COVID-19, MRNA-LNP, 23-24, P F, 30 MCG/0.3 mL, 12 YRS AND ABOVE, IM ([facility]) 08/23/2023 Covid-19, Mrna, Lnp-s, Pf, B ivalent, 30 Mcg, IM, 12 yrs and above ([employer]) 07/24/2022 Pneumococcal Conjugate Vacc, 13 Valent (Prevnar) [...] encounter Miscellaneous Notes * Telephone Encounter - Maria Victoria Joseph RN - 05/21/2024 1:19 PM EDT Discussed with Tanisha Luciano PA-C, who recommend patient decrease her lasix and potassium to once aday. I called and spoke with Ms. Khan and made her aware of Kendrick' recommendations. I also recommended increasing her fluid intake today and instructed her to call back with any changes. She verbalized understanding. Maria Victoria Joseph RN 05/21/2024 1:22 PM * Telephone Encounter - Maria Victoria Joseph RN - 05/21/2024 12:29 PM EDT Received a call from Zoila nurse. She was in to see Ms. Khan today and reports that her BP while sitting was 142/80 and dropped to 100/78 when standing. Patient reports mild lightheadedness, but was steady on her feet. After a few minutes she rechecked and BP was still 100/78. Zoila states patient has no edema and her lungs are clear, does have some mild FAIR but not SOB at rest. HR was in the 80s. Will discuss with Tanisha Luciano PA-C and call patient with recommendations. Will fax any new ordersto [phone], Attn: Nivia. Maria Victoria Joseph, RN 05/21/2024 12:34 PM documented in this encounter Plan of Treatment Upcoming Encounters Date Type Department Care Team (Late st Contact Info) Description 05/25/2024 12:20 PM EDT Office Visit Family Medicine [address] [place] [phone] Jasmina Taylor MD [address] [place] [address] [place] [phone] 05/29/2024 3:30 PM EDT Telemedicine Cardiothoracic Surg [facility] [place] [address] [place] [address] Noé Luciano PA-C [address] [place] [address] 06/17/2024 9:00 AM EDT Nurse Only Ancillary [address] [place] [address] [place], Nurse [address] [place] [address] 06/24/2024 1:00 PM EDT Office Visit Cardiothoracic Surg [place] [address] [place] [address] Alfonso Jay MD [address] [place] [address] 07/02/2024 9:30 AM EDT Office Visit Cardiology [address] [place] [address] Sarah Antoine PA-C [address] [place] [address] 08/25/2024 1:40 PM EST Office Visit Family Medicine [address] [place] [phone] Jasmina Taylor MD [address] [place] [address] [place] [phone] 10/05/2024 2:00 PM EST Office Visit Gastroenterology, [facility] [address] [place] [address] Martha Porter CRNP [address] [place] [address] Scheduled Procedures Name Priority Associated Diagnoses Date/Ti [...] this encounter Medical Devices Implanted Type Area Principal Consulting Engineer Device Identifier Shelf Expiration Date Model / Serial / Lot Suture Steel 6 B&S19 M654g - [id number] Implanted:Qty: 7 on 05/15/2024 by Alfonso Jay MD at [place] [facility] [place]A: Sternum JNJ : [employer] 08/20/2028 M654G / / TMMAST Marker Coronary - [id number] Implanted:Qty: 1 on 05/15/2024 by Alfonso Jay MD at [place] [facility] [place] N/A: Aorta [employer] 04/19/2027 AM-SD / / [id number] Description:attached to vein graft Marker Coronary - [id number] Implanted:Qty: 1 on 05/15/2024 by Alfonso Jay MD at [place] [facility] [place] N/A: Aorta [employer] 03/20/2027 AM-SD / / [id number] Description:attached to vein graft documented as of [...] and were consensually agreed upon. Care Teams Automation Tester Relationship Specialty Start Date End Date Jamsina Taylor MD [address] [place] [address] [place] [phone] PCP - General Family Medicine 05/07/24 documented as of this encounter
--- OUTSIDE RECORDS SUMMARY | 2024-06-06 15:45 | External Medical Summary | Summary of Care ---
Author Name Unknown Organization [facility] Address [address] [place] [address] Phone [phone] Care Team Providers Care Bulb Tester Name Role Phone Jasmina Taylor MD Primary Care Provide r Reason for Referral * Evaluate & Treat - Unlimited Visits (Within 3 days (urgent)) - Authorized Specialty Diagnoses / Procedures Referred By Sabiha kam Referred To Contact Highway Maintenance Technician Diagnoses S/P CABG x 3 Morena Haider, [facility] Flux Core Welder [address] [place] [address] Referral ID Status Reason Start Date Expiration Date Visits Requested Visits Authorized [id number] Authorized Specialty Services Required 05/21/[phone] Question Answer Referral Priority Within 3 days (urgent) Where should this appointment be scheduled? [facility] Program Type Case Management Complex Case Management [facility] Health Device(s) Requested Other (See Comment) Comments Primary Highway Maintenance Technician: Morena Hassan at Home patient: No Is the patient already enrolled with another [facility] device/service? (If no, will need to "push the button") No Does the patient have a physical address? (If no, provide physical address if requesting device) Yes Requested Devices/IVR: IVR Non complex jorge Start date: 05/26/24 How many weeks: 3 If want time other than 9am, note time here: Reason for Visit * Reason Comments [facility] Care Coordination Services Encounter Details Date Type Department Care Team (Late st Contact Info) Description 05/21/2024 Documentation Care Coordination and Integration [address] [place] [address] Morena Haider, [facility] Flux Core Welder [address] [place] [address] S/P CABG x 3* Allergies Active Allergy [...] mRNA, LNP-s, No Pre serve, 2-Dose Series ([employer]) 08/22/2021,12/14/2020,11/23/2020 COVID-19, LNP-s, No Preserve , Clive-sucrose, Ages 12+ (Pfizer) 02/13/2022 COVID-19, MRNA-LNP, 23-24, P F, 30 MCG/0.3 mL, 12 YRS AND ABOVE, IM ([employer]) 08/23/2023 Covid-19, Mrna, Lnp-s, Pf, B ivalent, 30 Mcg, IM, 12 yrs and above ([employer]) 07/24/2022 Pneumococcal Conjugate Vacc, 13 Valent (Prevnar) [...] 06/12/2023 Does the household have a re lar source of income? (Household - for ages [...] as of this encounter Progress Notes * Morena Haider [facility] Flux Core Welder - 05/21/2024 2:36 PM EDT Level 5 JORGE-A Please Enroll in NON-COMPLEX [facility] JORGE IVR weekly x 3 weeks. Begin calls the week of 05/26/24. Thank You. PCP: Jasmina Barraza Dx: CABG x 3 CTN: [phone] documented in this encounter Plan of Treatment Upcoming Encounters Date Type Department Care Team (Late st Contact Info) Description 05/25/2024 12:20 PM EDT Office Visit Family Medicine [address] [place] [phone] Jasmina Taylor MD [address] [place] [address] [place] [address] 05/29/2024 3:30 PM EDT Telemedicine Cardiothoracic Surg [facility] [place] [address] [place] [address] Noé Luciano PA-C [address] [place] [address] 06/17/2024 9:00 AM EDT Nurse Only Ancillary [address] [place] [address] [place], Nurse [address] [place] [address] 06/24/2024 1:00 PM EDT Office Visit Cardiothoracic Surg [facility] [place] [address] [place] [address] Alfonso Jay MD [address] [place] [address] 07/02/2024 9:30 AM EDT Office Visit Cardiology [address] [place] [address] Sarah Antoine PA-C [address] [place] [address] 08/25/2024 1:40 PM EST Office Visit Family Medicine [address] [place] [phone] Jasmina Taylor MD [address] [place] [address] [place] [address] 10/05/2024 2:00 PM EST Office Visit Gastroenterology, [facility] [address] [place] [address] Martha Porter CRNP [address] [place] [address] Scheduled Procedures Name Priority Associated Diagnoses Date/Ti me COLONOSCOPY FLEXIBLE PROXIMA L DIAGNOSTIC Recall Encounter for screening colonoscopy Scheduled Referrals Name Type Priority Associated Diagnoses Orde r Schedule REMOTE PATIENT MONITORING REFERRAL Referral Within 3 days (urgent) S/P CABG x 3 Ordered: 05/21/2024 Health Maintenance Due Date Last Done Comments [...] this encounter Medical Devices Implanted Type Area Group Exercise Instructor Device Identifier Shelf Expiration Date Model / Serial / Lot Suture Steel 6 B&S19 M654g - [id number] Implanted:Qty: 7 on 05/15/2024 [place]fonso Jay [place] [facility] [place] Sternum JNJ : [employer] 08/20/2028 M654G / / TMMAST Marker Coronary - [id number] Implanted:Qty: 1 on 05/15/2024 by Alfonso Jay MD [place] [facility] [place]A: Aorta [employer] 04/19/2027 [facility] / / [id number] Description:attached to vein graft Marker Coronary - [id number] Implanted:Qty: 1 on 05/15/2024 by Alfonso Jay MD [place] [facility] [place]A: Aorta [employer] 03/20/2027 [facility] / / [id number] Description:attached to vein graft documented as of [...] and were consensually agreed upon. Care Teams Bulb Tester Relationship Specialty Start Date End Date Jasmina Taylor MD [address] [place] [address] [place] [id number] PCP - General Family Medicine 05/07/24 documented as of this encounter
--- OUTSIDE RECORDS SUMMARY | 2024-06-06 15:45 | External Medical Summary | Summary of Care ---
Author Name Unknown Organization [facility] Address [address] [place] [address] Phone [phone] Care Team Providers Care Plastic Molding Operator Name Role Phone Jasmina Taylor MD Primary Care Provide r Encounter Details Date Type Department Care Team (Late st Contact Info) Description 05/21/2024 Population Health External Data Unspecified Department Allergies Active Allergy Reactions Criticality Noted Date [...] mRNA, LNP-s, No Pre serve, 2-Dose Series ([employer]) 08/22/2021,12/14/2020,11/23/2020 COVID-19, LNP-s, No Preserve , Clive-sucrose, Ages 12+ (Pfizer) 02/13/2022 COVID-19, MRNA-LNP, 23-24, P F, 30 MCG/0.3 mL, 12 YRS AND ABOVE, IM ([facility]) 08/23/2023 Covid-19, Mrna, Lnp-s, Pf, B ivalent, 30 Mcg, IM, 12 yrs and above ([employer]) 07/24/2022 Pneumococcal Conjugate Vacc, 13 Valent (Prevnar) [...] No 06/12/2023 Does the household have a [facility] source of income? (Household - for ages [...] 12:20 PM EDT Office Visit Family Medicine [address] [place] [phone] Jasmina Taylor MD [address] [place] [address] [place] [address] 05/29/2024 3:30 PM EDT Telemedicine Cardiothoracic Surg [facility] [address] [place], [place] [phone] Noé Luciano PA-C [address] [place] [address] 06/17/2024 9:00 AM EDT Nurse Only Ancillary [address] [place] [address] [place], Nurse Annual Wellness [address] [place] [address] [place] [address] 06/24/2024 1:00 PM EDT Office Visit Cardiothoracic Surg [facility] [address] [place] [address] Alfonso Jay MD [address] [place] [address] 07/02/2024 9:30 AM EDT Office Visit Cardiology [address] [place] [address] Sarah Antoine PA-C [address] [place] [address] 08/25/2024 1:40 PM EST Office Visit Family Medicine [address] [place] [phone] Jasmina Taylor MD [address] [place] [address] [place] [address] 10/05/2024 2:00 PM EST Office Visit [facility], [facility] [address] [facility] [place] [address] Martha Porter CRNP [address] [place] [address] Scheduled Procedures Name Priority Associated Diagnoses Date/Ti [...] this encounter Medical Devices Implanted Type Area Program Counselor Device Identifier Shelf Expiration Date Model / Serial / Lot Suture Steel 6 B&S19 M654g - [id number] Implanted:Qty: 7 on 05/15/2024 by Alfonso Jay MD at [place] [facility] [place] N/A: Sternum JNJ : [employer] 08/20/2028 M654G / / TMMAST Marker Coronary - [id number] Implanted:Qty: 1 on 05/15/2024 by Alfonso Jay MD at [place] [facility] [place] N/A: Aorta [employer] 04/19/2027 [facility] / / [id number] Description:attached to vein graft Marker Coronary - [id number] Implanted:Qty: 1 on 05/15/2024 by Alfonso Jay MD at OR [facility] [place] N/A: Aorta [employer] [facility]20/[id number] Description:attached to vein graft documented as of [...] and were consensually agreed upon. Care Teams Plastic Molding Operator Relationship Specialty Start Date End Date Jasmina Taylor MD [address] [place] [address] [place] [address] PCP - General Family Medicine 05/07/24 documented as of this encounter
--- OUTSIDE RECORDS SUMMARY | 2024-06-06 15:46 | External Medical Summary ---
Author Name Unknown Address Unknown Organization K01:LABORATORY C - [address] [place] [address] Laboratory Report Ordering Provider Test Date Status PADMINI COLEMAN 05/20/2024 06:42:00 Final Observation Date Value Abnormality Reference (Units ) Status Magnesium 05/20/2024 06:42:00 2.0 1.5-2.6 (m g/dL) Final Performing Location [facility] - [address] [facility] [address]
--- OUTSIDE RECORDS SUMMARY | 2024-06-06 15:46 | External Medical Summary ---
Author Name Unknown Address Unknown Organization K01:LABORATORY [facility] [place] - [facility] N [address] [facility] [address] [facility] [address] Laboratory Report Ordering Provider Test Date Status VENECIA OAKLEY 05/16/2024 14:59:00 Final Observation Date Value Abnormality Reference (Units ) Status BUN 05/16/2024 14:59:00 13 6-20 (mg/dL) Final Creatinine 05/16/2024 14:59:00 1.0 0.5-1.0 (mg/dL) Final Glomerular filtration rate/1.73 sq M.predicted [Volume Rate/Area] in Serum, Plasma or Blood by Creatinine-based formula (CKD-EPI) 05/16/2024 14:59:00 59 Below low normal >=60 (mL/min) Final eGFR is calculated based on the CKD-EPI 2020 equation. Sodium 05/16/2024 14:59:00 137 135-146 (m mol/L) Final Potassium 05/16/2024 14:59:00 4.4 3.5-5.1 (m mol/L) Final Cl 05/16/2024 14:59:00 107 98-107 (mm ol/L) Final CO2 05/16/2024 14:59:00 21 Below low normal 22- 32 (mmol/L) Final Anion gap 05/16/2024 14:59:00 9 7-15 (mmol /L) Final Glucose 05/16/2024 14:59:00 148 Above high normal 70 -120 (mg/dL) Final Calcium 05/16/2024 14:59:00 8.5 8.4-10.2 ( mg/dL) Final Performing Location LABORATORY [facility] - [address] [place] [address]
--- OUTSIDE RECORDS SUMMARY | 2024-06-06 15:46 | External Medical Summary ---
Author Name Unknown Address Unknown Organization : Laboratory Report Ordering Provider Test Date Status FRANCIS BALDWIN 05/15/2024 19:59:53 Final Observation Date Value Abnormality Reference (Units ) Status Glucose Point of Care 05/15/2024 19:59:53 108 70-120 (mg/dL) Final Performing Location
--- OUTSIDE RECORDS SUMMARY | 2024-06-06 15:46 | External Medical Summary ---
Author Name Unknown Address Unknown Organization K01:LABORATORY [facility] [place] - [address] [facility] [address] Laboratory Report Ordering Provider Test Date Status PADMINI COLEMAN 05/16/2024 03:28:18 Final Observation Date Value Abnormality Reference (Units ) Status SYNC LEUKOCYTES IN BLOOD BY AUTOMATED COUNT 05/16/2024 03:28:18 10.59 4.00-10.80 (K/uL) Final Segs 05/16/2024 03:28:18 78.1 Above high normal 40.0-75.0 (%) Final Lymphs % 05/16/2024 03:28:18 12.6 Below low normal 18.0-42.0 (%) Final Monos 05/16/2024 03:28:18 8.8 1.0-11.0 (%) Final Eosinophils 05/16/2024 03:28:18 0.0 0.0-6.0 (%) Final Basos 05/16/2024 03:28:18 0.1 0.0-2.0 (%) Final Immature Granulocyte, Percent 05/16/2024 03:28:18 0.4 0.0-2.0 (%) Final Absolute Segs 05/16/2024 03:28:18 8.28 Above high normal 1.80-7.70 (K/uL) Final Lymphs, absolute 05/16/2024 03:28:18 1.33 1.00-4.80 (K/ul) Final Monos, Abs 05/16/2024 03:28:18 0.93 0.00-1.10 (K/uL) Final Eos, Abs 05/16/2024 03:28:18 0.00 0.00-0.70 (K/uL) Final Basos, Abs 05/16/2024 03:28:18 0.01 0.00-0.20 (K/uL) Final Immature Granulocytes, Number 05/16/2024 03:28:18 0.04 0.00-0.20 (K/uL) Final Performing Location LABORATORY [facility] - [facility] [place] [address]
--- OUTSIDE RECORDS SUMMARY | 2024-06-06 15:46 | External Medical Summary ---
Author Name Unknown Address Unknown Organization K01:[place] [place] [facility] [address] [facility] [address] Laboratory Report Ordering Provider Test Date Status PADMINI COLEMAN 05/17/2024 04:35:00 Final Observation Date Value Abnormality Reference (Units ) Status BUN 05/17/2024 04:35:00 16 6-20 (mg/dL) Final Creatinine 05/17/2024 04:35:00 1.2 Above high normal 0.5-1.0 (mg/dL) Final Glomerular filtration rate/1.73 sq M.predicted [Volume Rate/Area] in Serum, Plasma or Blood by Creatinine-based formula (CKD-EPI) 05/17/2024 04:35:00 49 Below low normal >=60 (mL/min) Final eGFR is calculated based on the CKD-EPI 2020 equation. Sodium 05/17/2024 04:35:00 137 135-146 (m mol/L) Final Potassium 05/17/2024 04:35:00 4.1 3.5-5.1 (m mol/L) Final Cl 05/17/2024 04:35:00 105 98-107 (mm ol/L) Final CO2 05/17/2024 04:35:00 21 Below low normal 22- 32 (mmol/L) Final Anion gap 05/17/2024 04:35:00 11 7-15 (mmol /L) Final Glucose 05/17/2024 04:35:00 141 Above high normal 70 -120 (mg/dL) Final Calcium 05/17/2024 04:35:00 8.4 8.4-10.2 ( mg/dL) Final Performing Location [facility] [place] [address] [place] [address]
--- OUTSIDE RECORDS SUMMARY | 2024-06-06 15:46 | External Medical Summary | Summary of Care ---
Author Name Unknown Organization [facility] Address [address] [place] [address] Phone [phone] Care Team Providers Care Financial Services Education Consultant Name Role Phone Jasmina Taylor MD Primary Care Provide r Reason for Visit * Reason Onset Date Comments Home Health 05/20/2024 Encounter Details Date Type Department Care Team (Late st Contact Info) Description 05/20/2024 Telephone Family Medicine [address] [phone] Jasmina Taylor MD [address] [place] [address] [place] [address] Home Health Allergies Active Allergy Reactions Criticality Noted Date Comments Baclofen 04/26/2022 Vertigo/extreme dizziness Codeine 02/18/2013 "deathly sick" Levofloxacin Nausea/vomiting 08/12/2018 Sulfa Antibiotics 08/25/2001 Rash documented as of this encounter (statuses as of 05/20/2024) Medications Medication Sig Dispensed Refills Start Date End Date Status Amiodarone HCl 200 MG Oral Tablet (Cordarone) Take 1 Tablet by mouth daily with breakfast. Until gone, do not renew 30 Tablet 05/20/2024 Active Atenolol 25 MG Oral Tablet (Tenormin)Indicat ions:HTN, goal below [...] for Pain, Moderate. 10 Tablet 05/20/2024 Active Coenzyme Q10 10 MG Capsule Take 2 Capsules by mouth in the morning. 02/12/2019 Suspended Multiple Vitamins-Minerals (MULTIVITAMIN ADULTS) TABS Take 1 Tab by mouth daily. Suspended aspirin enteric coated 81 MG TBEC Take 1 Tablet by mouth in the morning. 05/24/2020 Suspended Hydrocortisone 2.5 % External CreamIndications: Hemorrhoids, unspecified hemorrhoid type Apply topically to affected area 2 times a day. 28 g 01/14/2023 Suspended Additional Information Pantoprazole Sodium 40 MG Oral Tablet Delayed Release (Protonix)Indicat ions:Gastroesopha geal reflux disease without esophagitis Take 1 Tablet by mouth in the morning. 30 minutes before the first meal of the day. Do not crush, split or chew the tablet. 90 Tablet 3 10/28/2023 Suspended Additional Information Pravastatin Sodium 40 MG Oral Tablet (Pravachol) Take 1 Tablet by mouth daily with dinner 100 Tablet 1 02/24/2024 Suspended Additional Information Mirtazapine 15 MG Oral Tablet (Remeron) Take 1 Tablet by mouth at bedtime. 90 Tablet 03/13/2024 Suspended Additional Information documented as of this encounter (statuses as of 05/20/2024) Active Problems Problem Noted Date Diagnosed Date ACS (acute coronary syndrome) 05/14/2024 Hypertensive urgency 05/14/2024 Coronary artery disease 05/13/2024 Multiple vessel coronary artery disease 05/13/20 24 Primary osteoarthritis of right knee 03/13/2024 Hiatal hernia 03/13/2024 Seasonal allergic rhinitis due to pollen 023 History of Clostridioides difficile infection 05 / Primary insomnia 03/14/2021 Multinodular thyroid 08/19/2020 Family [...] as of this encounter (statuses as of 05/20/2024) Resolved Problems Problem Noted Date Diagnosed Date [...] as of this encounter (statuses as of 05/20/2024) Immunizations Name Administration Dates Next Due COVID-19 mRNA, LNP-s, No Pre serve, 2-Dose Series ([employer]) 08/22/2021,12/14/2020,11/23/2020 COVID-19, LNP-s, No Preserve , Clive-sucrose, Ages 12+ (Pfizer) 02/13/2022 COVID-19, MRNA-LNP, 23-24, P F, 30 MCG/0.3 mL, 12 YRS AND ABOVE, IM ([employer]) 08/23/2023 Covid-19, Mrna, Lnp-s, Pf, B ivalent, [...] encounter Miscellaneous Notes * Telephone Encounter - Tamica Lou LPN - 05/20/2024 11:41 AM EDT Admission/Start of Care Admission/Start of Care: Tresa Calling from: [facility] Patient was Admitted to: [facility] , for: CAD from 05/13 to present Referral ordered by: [facility] Referral received for: Custodial, PT, and OT Planned start of care date:Yes, Date 05/21 Start of care completed on: NA Report/Concerns of:NA They will call with any updates or [...] 12:20 PM EDT Office Visit Family Medicine [address] [place] [phone] Jasmina Taylor MD [address] [place] [address] [place] [address] 05/29/2024 3:30 PM EDT Telemedicine Cardiothoracic Surg [facility] [place] [address] [place] [address] Noé Luciano PA-C [address] [place] [address] 06/01/2024 8:30 AM EDT Imaging [facility] 2nd Floor Cardiology, [address] [address] 06/01/2024 10:00 AM EDT Imaging [facility] 2nd Floor Cardiology, [address] [address] 06/01/2024 11:00 AM EDT Imaging [facility] 2nd Floor Cardiology, [address] [address] 06/01/2024 1:00 PM EDT Imaging [facility] 2nd Floor Cardiology, [address] [address] 06/17/2024 9:00 AM EDT Nurse Only Ancillary [address] [place] [address] [place], Nurse Annual [address] [place] [address] 06/24/2024 1:00 PM EDT Office Visit Cardiothoracic Surg [facility] [place] [address] [place] [address] Alfonso Jay MD [address] [place] [address] 07/02/2024 9:30 AM EDT Office Visit Cardiology [address] [place] [address] Sarah Antoine PA-C [address] [place] [address] 08/25/2024 1:40 PM EST Office Visit Family Medicine [address] [place] [phone] Jasmina Taylor MD [address] [place] [address] [place] [address] 10/05/2024 2:00 PM EST Office Visit Gastroenterology, [facility] [address] [place] [address] Martha Porter CRNP [address] [place] [address] Scheduled Procedures Name Priority Associated Diagnoses Date/Ti [...] this encounter Medical Devices Implanted Type Area Senior Benefits Manager Device Identifier Shelf Expiration Date Model / Serial / Lot Suture Steel 6 B&S19 M654g - [id number] Implanted:Qty: 7 on 05/15/2024 by Alfonso Jya MD [place] [facility] [place]A: Sternum JNJ : [employer] 08/20/2028 M654G / / TMMAST Marker Coronary - [id number] Implanted:Qty: 1 on 05/15/2024 by Alfonso Jay MD [place] [facility] [place] N/A: Aorta [employer] 04/19/2027 [facility] / / [id number] Description:attached to vein graft Marker Coronary - [id number] Implanted:Qty: 1 on 05/15/2024 by Alfonso Jay MD [place] [facility] [place] N/A: Aorta [employer] 03/20/2027 [facility] / / [id number] Description:attached to vein graft documented as of this encounter Advance Directives * Full Code (Latest Code Status on File) Date Activated Date Inactivated Comments 05/15/2024 12:25 PM This order re flects the patients wishes and were consensually agreed [...] and were consensually agreed upon. Care Teams Financial Services Education Consultant Relationship Specialty Start Date End Date Jasmina Taylor MD [address] [place] [address] [place] [address] PCP - General Family Medicine 05/07/24 documented as of this encounter
--- OUTSIDE RECORDS SUMMARY | 2024-06-06 15:46 | External Medical Summary ---
Author Name Unknown Address Unknown Organization : Laboratory Report Ordering Provider Test Date Status FRANCIS BALDWIN 05/16/2024 00:06:50 Final Observation Date Value Abnormality Reference (Units ) Status Glucose Point of Care 05/16/2024 00:06:50 121 Above high normal 70-120 (mg/dL) Final Performing Location
--- OUTSIDE RECORDS SUMMARY | 2024-06-06 15:46 | External Medical Summary ---
Author Name Unknown Address Unknown Organization K01:[facility] [facility] [address] [facility] [address] Laboratory Report Ordering Provider Test Date Status PADMINI COLEMAN 05/16/2024 03:28:18 Final Observation Date Value Abnormality Reference (Units ) Status WBC, Total 05/16/2024 03:28:18 10.59 4.00-10.80 (K/uL) Final RBC 05/16/2024 03:28:18 2.75 3.85-5.15 (M/uL) Final Hemoglobin 05/16/2024 03:28:18 8.2 Below low normal 12.0-15.3 (g/dL) Final HCT 05/16/2024 03:28:18 25.2 Below low normal 36.0-45.2 (%) Final MCV 05/16/2024 03:28:18 91.6 81.5-97.5 (fL) Final MCH 05/16/2024 03:28:18 29.8 27.0-34.0 (pg) Final MCHC 05/16/2024 03:28:18 32.5 32.0-36.0 (g/dL) Final RDW 05/16/2024 03:28:18 13.5 11.5-15.5 (%) Final Platelets 05/16/2024 03:28:18 126 Below low normal 140-400 (K/uL) Final MPV 05/16/2024 03:28:18 11.2 6.6-11.1 (fL) Final Nucleated erythrocytes/100 leukocytes [Ratio] in Blood by Automated count 05/16/2024 03:28:18 0 <=0 (/100 WBCs) Final Performing Location LABORATORY [facility] [place] [facility] [address] [facility] [address] [address]
--- OUTSIDE RECORDS SUMMARY | 2024-06-06 15:46 | External Medical Summary ---
Author Name Unknown Address Unknown Organization K01:LABORATORY [facility] [place] - [address] [place] [address] Laboratory Report Ordering Provider Test Date Status PADMINI COLEMAN 05/20/2024 06:42:00 Final Observation Date Value Abnormality Reference (Units ) Status SYNC LEUKOCYTES IN BLOOD BY AUTOMATED COUNT 05/20/2024 06:42:00 7.38 4.00-10.80 (K/uL) Final Neutrophils/100 leukocytes in Blood by Manual count 05/20/2024 06:42:00 68.0 40.0-75.0 (%) Final Lymphocytes/100 leukocytes in Blood by Manual count 05/20/2024 06:42:00 21.0 18.0-42.0 (%) Final Monocytes/100 leukocytes in Blood by Manual count 05/20/2024 06:42:00 7.0 1.0-11.0 (%) Final Eosinophils/100 leukocytes in Blood by Manual count 05/20/2024 06:42:00 3.0 0.0-6.0 (%) Final Basophils/100 leukocytes in Blood by Manual count 05/20/2024 06:42:00 1.0 0.0-2.0 (%) Final Neutrophils [#/volume] in Blood by Manual count 05/20/2024 06:42:00 5.02 1.80-7.70 (K/uL) Final Lymphocytes [#/volume] in Blood by Manual count 05/20/2024 06:42:00 1.55 1.00-4.80 (K/uL) Final Monocytes [#/volume] in Blood by Manual count 05/20/2024 06:42:00 0.52 0.00-1.10 (K/uL) Final Eosinophils [#/volume] in Blood by Manual count 05/20/2024 06:42:00 0.22 0.00-0.70 (K/uL) Final Basophils [#/volume] in Blood by Manual count 05/20/2024 06:42:00 0.07 0.00-0.20 (K/uL) Final Performing Location LABORATORY [facility] - [address] [place], [place] [address]
--- OUTSIDE RECORDS SUMMARY | 2024-06-06 15:46 | External Medical Summary ---
Author Name Unknown Address Unknown Organization K01:[place] [place] [address] [place] [address] Laboratory Report Ordering Provider Test Date Status PADMINI COLEMAN 05/16/2024 03:28:18 Final Observation Date Value Abnormality Reference (Units ) Status Magnesium 05/16/2024 03:28:18 2.2 1.5-2.6 (m g/dL) Final Performing Location [facility] - [address] [facility] [address]
--- OUTSIDE RECORDS SUMMARY | 2024-06-06 15:46 | External Medical Summary ---
Author Name Unknown Address Unknown Organization : Laboratory Report Ordering Provider Test Date Status FRANCIS BALDWIN 05/15/2024 22:02:18 Final Observation Date Value Abnormality Reference (Units ) Status Glucose Point of Care 05/15/2024 22:02:18 118 70-120 (mg/dL) Final Performing Location
--- OUTSIDE RECORDS SUMMARY | 2024-06-06 15:46 | External Medical Summary ---
Author Name Unknown Address Unknown Organization K01:LABORATORY [facility] [place] - [address] [facility] [address] Laboratory Report Ordering Provider Test Date Status PADMINI COLEMAN 05/15/2024 14:58:00 Final Observation Date Value Abnormality Reference (Units ) Status Body temperature 05/15/2024 14:58:00 37.0 (C) Final pH of Arterial blood 05/15/2024 14:58:00 7.446 7.350-7.450 (units) Final Carbon dioxide [Partial pressure] in Arterial blood 05/15/2024 14:58:00 35.1 35.0-45.0 (mmHg) Final Oxygen [Partial pressure] in Arterial blood 05/15/2024 14:58:00 119.0 Above high normal 75.0-100.0 (mmHg) Final Base excess, Arterial 05/15/2024 14:58:00 0.4 -2.0-2.0 (mmol/L) Final Hemoglobin [Mass/volume] in Blood by Oximetry 05/15/2024 14:58:00 9.3 Below low normal 12.0-15.3 (g/dL) Final Oxyhemoglobin, Arterial (FO2HB) 05/15/2024 14:58:00 97.5 94.0-99.0 (% total Hgb) Final Carboxyhemoglobin 05/15/2024 14:58:00 1.3 <=1.5 (% total Hgb) Final Smokers: 0-9.0 % Methemoglobin 05/15/2024 14:58:00 0.6 <=1.5 (% total Hgb) Final Deoxyhemoglobin/Hemog lobin.total in Arterial blood 05/15/2024 14:58:00 0.6 0.0-5.0 (% total Hgb) Final Oxygen content in Arterial blood 05/15/2024 14:58:00 13.0 Below low normal 15.0-24.0 (%vol) Final Potassium, Whole Blood 05/15/2024 14:58:00 3.9 3.5-5.1 (mmol/L) Final Sodium, Whole Blood 05/15/2024 14:58:00 139 135-146 (mmol/L) Final Chloride, Whole Blood 05/15/2024 14:58:00 110 Above high normal 98-107 (mmol/L) Final Calcium.ionized [Moles/volume] in Blood by Ion-selective membrane electrode (ISE) 05/15/2024 14:58:00 1.13 1.13-1.32 (mmol/L) Final Anion gap, Whole Blood 05/15/2024 14:58:00 5.5 Below low normal 7.0-15.0 (mmol/L) Final Glucose, whole blood 05/15/2024 14:58:00 138 Above high normal 70-120 (mg/dL) Final Oxygen/Total gas setting [Volume Fraction] Ventilator 05/15/2024 14:58:00 40 (%) Final O2 FLOW, ARTERIAL - [facility] 05/15/2024 14:58:00 Not Provided (L/min) Final Bicarbonate, Venous, POC (i-STAT) 05/15/2024 14:58:00 23.8 23.0-31.0 (mmol/L) Final Performing Location LABORATORY [facility] [place] - [address] [facility] [address]
--- OUTSIDE RECORDS SUMMARY | 2024-06-06 15:46 | External Medical Summary ---
Author Name Unknown Address Unknown Organization K01:LABORATORY C - [address] [place] [address] [place] [address] Laboratory Report Ordering Provider Test Date Status PADMINI COLEMAN 05/17/2024 04:35:00 Final Observation Date Value Abnormality Reference (Units ) Status Magnesium 05/17/2024 04:35:00 2.1 1.5-2.6 (m g/dL) Final Performing Location [facility] - [address] [facility] [address]
--- OUTSIDE RECORDS SUMMARY | 2024-06-06 15:46 | External Medical Summary ---
Author Name Unknown Address Unknown Organization K01:LABORATORY C - [address] [place] [address] Laboratory Report Ordering Provider Test Date Status PADMINI COLEMAN 05/15/2024 18:07:35 Final Observation Date Value Abnormality Reference (Units ) Status Magnesium 05/15/2024 18:07:35 2.3 1.5-2.6 (m g/dL) Final Performing Location [facility] - [address] [facility] [address]
--- OUTSIDE RECORDS SUMMARY | 2024-06-06 15:46 | External Medical Summary ---
Author Name Unknown Address Unknown Organization K01:[place]ORY [facility] [place] [address] [facility] [address] Laboratory Report Ordering Provider Test Date Status PADMINI COLEMAN 05/17/2024 04:35:00 Final Observation Date Value Abnormality Reference (Units ) Status SYNC LEUKOCYTES IN BLOOD BY AUTOMATED COUNT 05/17/2024 04:35:00 8.95 4.00-10.80 (K/uL) Final Segs 05/17/2024 04:35:00 78.4 Above high normal 40.0-75.0 (%) Final Lymphs % 05/17/2024 04:35:00 10.8 Below low normal 18.0-42.0 (%) Final Monos 05/17/2024 04:35:00 10.5 1.0-11.0 (%) Final Eosinophils 05/17/2024 04:35:00 0.0 0.0-6.0 (%) Final Basos 05/17/2024 04:35:00 0.1 0.0-2.0 (%) Final Immature Granulocyte, Percent 05/17/2024 04:35:00 0.2 0.0-2.0 (%) Final Absolute Segs 05/17/2024 04:35:00 7.01 1.80-7.70 (K/uL) Final Lymphs, absolute 05/17/2024 04:35:00 0.97 Below low normal 1.00-4.80 (K/ul) Final Monos, Abs 05/17/2024 04:35:00 0.94 0.00-1.10 (K/uL) Final Eos, Abs 05/17/2024 04:35:00 0.00 0.00-0.70 (K/uL) Final Basos, Abs 05/17/2024 04:35:00 0.01 0.00-0.20 (K/uL) Final Immature Granulocytes, Number 05/17/2024 04:35:00 0.02 0.00-0.20 (K/uL) Final Performing Location LAB[facility]ATORY [facility] [place] - [facility] [place] [address]
--- OUTSIDE RECORDS SUMMARY | 2024-06-06 15:46 | External Medical Summary ---
Author Name Unknown Address Unknown Organization K01:[place] [facility] [place] [facility] [address] [facility] [address] Laboratory Report Ordering Provider Test Date Status PADMINI COLEMAN 05/19/2024 06:18:00 Final Observation Date Value Abnormality Reference (Units ) Status WBC, Total 05/19/2024 06:18:00 8.07 4.00-10.80 (K/uL) Final RBC 05/19/2024 06:18:00 2.74 3.85-5.15 (M/uL) Final Hemoglobin 05/19/2024 06:18:00 8.2 Below low normal 12.0-15.3 (g/dL) Final HCT 05/19/2024 06:18:00 24.9 Below low normal 36.0-45.2 (%) Final MCV 05/19/2024 06:18:00 90.9 81.5-97.5 (fL) Final MCH 05/19/2024 06:18:00 29.9 27.0-34.0 (pg) Final MCHC 05/19/2024 06:18:00 32.9 32.0-36.0 (g/dL) Final RDW 05/19/2024 06:18:00 14.1 11.5-15.5 (%) Final Platelets 05/19/2024 06:18:00 152 140-400 (K/uL) Final MPV 05/19/2024 06:18:00 10.6 6.6-11.1 (fL) Final Nucleated erythrocytes/100 leukocytes [Ratio] in Blood by Automated count 05/19/2024 06:18:00 0 <=0 (/100 WBCs) Final Performing Location [place] [facility] [place] [address] [place] [address]
--- OUTSIDE RECORDS SUMMARY | 2024-06-06 15:46 | External Medical Summary ---
Author Name Unknown Address Unknown Organization K01:LABORATORY [facility] [place] - [address] [facility] [address] [facility] [address] Laboratory Report Ordering Provider Test Date Status PADMINI COLEMAN 05/16/2024 00:15:53 Final Observation Date Value Abnormality Reference (Units ) Status Potassium 05/16/2024 00:15:53 4.0 3.5-5.1 (m mol/L) Final Performing Location LABORATORY [facility] [place] - [address] [facility] [address]
--- OUTSIDE RECORDS SUMMARY | 2024-06-06 15:46 | External Medical Summary ---
Author Name Unknown Address Unknown Organization : Laboratory Report Ordering Provider Test Date Status PADMINI COLEMAN 05/20/2024 06:42:00 Final Observation Date Value Abnormality Reference (Units ) Status Performing Location
--- OUTSIDE RECORDS SUMMARY | 2024-06-06 15:46 | External Medical Summary ---
Author Name Unknown Address Unknown Organization : Laboratory Report Ordering Provider Test Date Status FRANCIS BALDWIN 05/15/2024 14:09:55 Final Observation Date Value Abnormality Reference (Units ) Status Glucose Point of Care 05/15/2024 14:09:55 139 Above high normal 70-120 (mg/dL) Final Performing Location
--- OUTSIDE RECORDS SUMMARY | 2024-06-06 15:46 | External Medical Summary | Summary of Care ---
Author Name Unknown Organization [facility] Address [address] [place] [address] Phone [phone] Care Team Providers Care Motor Coach Driver Name Role Phone Jasmina Taylor MD Primary Care Provide r Reason for Visit * Auth/Cert Specialty Diagnoses / Procedures Referred By Sabiha kam Referred To Contact Diagnoses chest pain Carly Nolasco MD [address] [place] [address] Admissions [facility] [address] [place] [address] Referral ID Status Reason Start Date Expiration Date Visits Re quested Visits Authorized [id number] Encounter Details Date Type Department Care Team (Latest Contact Info) Description 05/14/2024 11:10 AM EDT - 05/14/2024 11:59 PM EDT Hospital Encounter Cardiac Studies [facility] [address] [place], [place] [id number] Discharge Disposition: Home - Self Care Allergies Active Allergy Reactions Criticality Noted Date Comments Baclofen 04/26/2022 Vertigo/extreme dizziness Codeine 02/18/2013 "deathly sick" Levofloxacin Nausea/vomiting 08/12/2018 Sulfa Antibiotics 08/25/2001 Rash documented as of this encounter (statuses as of 05/15/2024) Medications Medication Sig Dispensed Refills Start Date End Date Status fluticasone (FLONASE) 50 MCG/ACT nasal spray Administer 2 Sprays into each nostril in the morning. 1 Inhaler 5 01/13/2018 Suspended Coenzyme Q10 10 MG Capsule Take 2 Capsules by mouth in the morning. 02/12/2019 Suspended Multiple Vitamins-Minerals (MULTIVITAMIN ADULTS) TABS Take 1 Tab by mouth daily. Suspended aspirin enteric coated 81 MG TBEC Take 1 Tablet by mouth in the morning. 05/24/2020 Suspended Culturelle Pro-Well Oral Capsule Take 2 Caps by mouth daily. Suspended Benefiber Oral Powder Take by mouth every evening. Takes 2 tsp daily with supper Suspended Polyethylene Glycol 3350 17 GM Oral Packet Take 1 Packet by mouth in the morning. Suspended Hydrocortisone 2.5 % External CreamIndications: Hemorrhoids, [...] 90 Tablet 3 10/28/2023 Suspended Additional Information Dicyclomine HCl 10 MG Oral Capsule (Bentyl) Take 1 Capsule by mouth 2 times a day as needed for Cramping. 180 Capsule 2 10/28/2023 Suspended Additional Information Pravastatin Sodium 40 MG Oral Tablet (Pravachol) Take 1 Tablet by mouth daily with dinner 100 Tablet 1 02/24/2024 Suspended Additional Information Mirtazapine 15 MG Oral Tablet (Remeron) Take 1 Tablet by mouth at bedtime. 90 Tablet 03/13/2024 Suspended Additional Information Triamcinolone Acetonide 0.1 % External Cream (Aristocort) Apply topically to affected area 2 times a day. Apply to affected areas 45 g 1 03/30/2024 Suspended Additional Information Patient not taking.Reported on 05/13/2024 Lisinopril 20 MG Oral Tablet (Prinivil)Indicat ions:HTN, goal below 140/90 Take 1 Tablet by mouth in the morning. 30 Tablet 11 05/08/2024 Suspended Additional Information Atenolol 50 MG Oral Tablet (Tenormin)Indicat ions:HTN, goal below 140/90 Take 1 Tablet by mouth in the morning. 90 Tablet 3 05/11/2024 Suspended Additional Information documented as of this encounter (statuses as of 05/15/2024) Active Problems Problem Noted Date Diagnosed Date [...] as of this encounter (statuses as of 05/15/2024) Resolved Problems Problem Noted Date Diagnosed Date [...] as of this encounter (statuses as of 05/15/2024) Immunizations Name Administration Dates Next Due COVID-19 mRNA, LNP-s, No Pre serve, 2-Dose Series ([employer]) 08/22/2021,12/14/2020,11/23/2020 COVID-19, LNP-s, No Preserve , Clive-sucrose, Ages 12+ (Pfizer) 02/13/2022 COVID-19, MRNA-LNP, 23-24, P F, 30 MCG/0.3 mL, 12 YRS AND ABOVE, IM ([facility]) 08/23/2023 Covid-19, Mrna, Lnp-s, Pf, B ivalent, 30 Mcg, IM, 12 yrs and above ([employer]) 07/24/2022 Pneumococcal Conjugate Vacc, 13 Valent (Prevnar) [...] Info) Description 06/01/2024 8:30 AM EDT Imaging [facility] 2nd Floor Cardiology, [address] [place] [phone] 06/01/2024 10:00 AM EDT Imaging [facility] 2nd Floor Cardiology, [address] [place] [address] 06/01/2024 11:00 AM EDT Imaging [facility] 2nd [facility] [address] [place] [address] 06/01/2024 1:00 PM EDT Imaging [address] [place] [address] 06/17/2024 9:00 AM EDT Nurse Only Ancillary [address] [place] [address] [place], Nurse Annual [address] [place] [address] 07/02/2024 9:30 AM EDT Office Visit Cardiology [address] [place] [address] Sarah Antoine PA-C [address] [place] [address] 08/25/2024 1:40 PM EST Office Visit Family Medicine [address] [place] [phone] Jasmina Taylor MD [address] [place] [address] [place] [address] 10/05/2024 2:00 PM EST Office Visit Gastroenterology, [facility] [address] [place] [address] Martha Porter CRNP [address] [place] [address] Scheduled Procedures Name Priority Associated Diagnoses Date/Ti va CORONARY ARTERY BYPASS GRAFT USING ARTERY 1 GRAFT Multiple vessel coronary artery disease 05/15/2024 6:30 AM EDT CORONARY ARTERY BYPASS GRAFT ARTERIAL AND VENOUS 2 GRAFTS Multiple vessel coronary artery disease 05/15/2024 6:30 AM EDT ENDOSCOPY VIDEO ASSISTED HARVEST VEIN Multiple vessel coronary artery disease 05/15/2024 6:30 AM EDT COLONOSCOPY FLEXIBLE PROXIMAL DIAGNOSTIC Recall Encounter for screening colonoscopy Health [...] 02/27/2022, 02/18, 01/21/2019, Additional history exists GFR 05/15/2025 05/15/2024, 04/21, 05/13/2024, Additional history exists Colonoscopy 03/15/2033 03/15/2023, 02/19, 08/20/2018, Additional history exists Colorectal Cancer Screening 03/15/2033 Pneumococcal Vaccine: 65+ Years Completed 01/22/2019, 11/27/2016, 11/09/2013 Zoster Vaccines Completed 05/16/2021, 02/19, 02/19/2013 COVID-19 Vaccine Discontinued 08/23/2023, 01/2022, 02/13/2022, Additional history exists *BASELINE EKG FOR HTN Completed 05/13/2024 , 08/13/2023, 08/28/2022, Additional history exists HPV (Gardasil) Vaccine Aged [...] Not on filedocumented as of this encounter Procedures Procedure Name Priority Date/Time Associated Diagnosis Comments ECHO, COMPLETE (2D), TRANS-THORACIC Routine 05/14/2024 11:58 AM EDT Chest pain, unspecified type documented in this encounter Visit Diagnoses Diagnosis Multiple vessel coronary artery disease- Primary Coronary atherosclerosis of unspecified type of vessel, [place] or graft documented in this encounter Administered Medications Inactive Administered Medications - up to 3 most recent administrations Medication Order MAR Action Action Date Dose Rate Site perflutren lipid microsphere inj SUSP 1.956 mg 1.956 mg, Intravenous, ONCE PRN Other, For Echo Only - Suboptimal Echo Images, Starting on Luann 05/14/24 at 1136, Until Luann 05/14/24 at 1335, For 2 hours, Administer IVP over 45 seconds, Cardiac Studies_HODHOV Given 05/14/2024 11:36 AM EDT 1.956 mg documented in this encounter Advance Directives * [...] and were consensually agreed upon. Care Teams Motor Coach Driver Relationship Specialty Start Date End Date Jamsina Taylor MD [address] [place] [address] [place] [id number] PCP - General Family Medicine 05/07/24 documented as of this encounter
--- OUTSIDE RECORDS SUMMARY | 2024-06-06 15:46 | External Medical Summary ---
Author Name Unknown Address Unknown Organization K01:[place] [facility] [place] [address] [place] [address] Laboratory Report Ordering Provider Test Date Status PADMINI COLEMAN 05/19/2024 06:18:00 Final Observation Date Value Abnormality Reference (Units ) Status Magnesium 05/19/2024 06:18:00 2.1 1.5-2.6 (m g/dL) Final Performing Location LAB[facility]ATORY [facility] - [address] [facility] [address]
--- OUTSIDE RECORDS SUMMARY | 2024-06-06 15:46 | External Medical Summary ---
Author Name Unknown Address Unknown Organization K01:[facility] [place] - [facility] [address] [place] [address] Laboratory Report Ordering Provider Test Date Status PADMINI COLEMAN 05/19/2024 06:18:00 Final Observation Date Value Abnormality Reference (Units ) Status BUN 05/19/2024 06:18:00 21 Above high normal 6-20 (mg/dL) Final Creatinine 05/19/2024 06:18:00 1.0 0.5-1.0 (mg/dL) Final Glomerular filtration rate/1.73 sq M.predicted [Volume Rate/Area] in Serum, Plasma or Blood by Creatinine-based formula (CKD-EPI) 05/19/2024 06:18:00 59 Below low normal >=60 (mL/min) Final eGFR is calculated based on the CKD-EPI 2020 equation. Sodium 05/19/2024 06:18:00 140 135-146 (m mol/L) Final Potassium 05/19/2024 06:18:00 3.8 3.5-5.1 (m mol/L) Final Cl 05/19/2024 06:18:00 105 98-107 (mm ol/L) Final CO2 05/19/2024 06:18:00 24 22-32 (mmo l/L) Final Anion gap 05/19/2024 06:18:00 11 7-15 (mmol /L) Final Glucose 05/19/2024 06:18:00 101 70-120 (mg /dL) Final Calcium 05/19/2024 06:18:00 8.9 8.4-10.2 ( mg/dL) Final Performing Location LABOR[facility]ORY [facility] [place] - [address] [place] [address]
--- OUTSIDE RECORDS SUMMARY | 2024-06-06 15:46 | External Medical Summary ---
Author Name Unknown Address Unknown Organization K01:LABORATORY [facility] - [address] [facility] [address] [place] [address] Laboratory Report Ordering Provider Test Date Status PADMINI COLEMAN 05/15/2024 18:07:35 Final 6 hours after surgery and af ter NOW BMP draw. Observation Date Value Abnormality Reference (Units ) Status BUN 05/15/2024 18:07:35 11 6-20 (mg/dL) Final Creatinine 05/15/2024 18:07:35 0.8 0.5-1.0 (mg/dL) Final Glomerular filtration rate/1.73 sq M.predicted [Volume Rate/Area] in Serum, Plasma or Blood by Creatinine-based formula (CKD-EPI) 05/15/2024 18:07:35 81 >=60 (mL/min) Final eGFR is calculated based on the CKD-EPI 2020 equation. Sodium 05/15/2024 18:07:35 142 135-146 (m mol/L) Final Potassium 05/15/2024 18:07:35 4.3 3.5-5.1 (m mol/L) Final Cl 05/15/2024 18:07:35 111 Above high normal 98 -107 (mmol/L) Final CO2 05/15/2024 18:07:35 20 Below low normal 22- 32 (mmol/L) Final Anion gap 05/15/2024 18:07:35 11 7-15 (mmol /L) Final Glucose 05/15/2024 18:07:35 139 Above high normal 70 -120 (mg/dL) Final Calcium 05/15/2024 18:07:35 8.0 Below low normal 8.4 -10.2 (mg/dL) Final Performing Location LABORATORY [facility] - [address] [place] [address]
--- OUTSIDE RECORDS SUMMARY | 2024-06-06 15:46 | External Medical Summary ---
Author Name Unknown Address Unknown Organization : Laboratory Report Ordering Provider Test Date Status FRANCIS BALDWIN 05/15/2024 12:36:05 Final Observation Date Value Abnormality Reference (Units ) Status Glucose Point of Care 05/15/2024 12:36:05 128 Above high normal 70-120 (mg/dL) Final Performing Location
--- OUTSIDE RECORDS SUMMARY | 2024-06-06 15:46 | External Medical Summary ---
Author Name Unknown Address Unknown Organization K01:LABORATORY [facility] [place] - [facility] [address] [facility] [address] Laboratory Report Ordering Provider Test Date Status VENECIA OAKLEY 05/16/2024 14:59:00 Final Observation Date Value Abnormality Reference (Units ) Status WBC, Total 05/16/2024 14:59:00 10.52 4.00-10.80 (K/uL) Final RBC 05/16/2024 14:59:00 2.64 3.85-5.15 (M/uL) Final Hemoglobin 05/16/2024 14:59:00 7.9 Below low normal 12.0-15.3 (g/dL) Final HCT 05/16/2024 14:59:00 23.7 Below low normal 36.0-45.2 (%) Final MCV 05/16/2024 14:59:00 89.8 81.5-97.5 (fL) Final MCH 05/16/2024 14:59:00 29.9 27.0-34.0 (pg) Final MCHC 05/16/2024 14:59:00 33.3 32.0-36.0 (g/dL) Final RDW 05/16/2024 14:59:00 13.7 11.5-15.5 (%) Final Platelets 05/16/2024 14:59:00 107 Below low normal 140-400 (K/uL) Final MPV 05/16/2024 14:59:00 11.2 6.6-11.1 (fL) Final Nucleated erythrocytes/100 leukocytes [Ratio] in Blood by Automated count 05/16/2024 14:59:00 0 <=0 (/100 WBCs) Final Performing Location LABORATORY [facility] [place] - [address] [place] [address]
--- OUTSIDE RECORDS SUMMARY | 2024-06-06 15:46 | External Medical Summary ---
Author Name Unknown Address Unknown Organization K01:LABORATORY [facility] [place] - [address] [facility] [address] Laboratory Report Ordering Provider Test Date Status PADMINI COLEMAN 05/15/2024 16:12:52 Final Observation Date Value Abnormality Reference (Units ) Status Body temperature 05/15/2024 16:12:52 37.0 (C) Final pH of Arterial blood 05/15/2024 16:12:52 7.393 7.350-7.450 (units) Final Carbon dioxide [Partial pressure] in Arterial blood 05/15/2024 16:12:52 36.1 35.0-45.0 (mmHg) Final Oxygen [Partial pressure] in Arterial blood 05/15/2024 16:12:52 120.0 Above high normal 75.0-100.0 (mmHg) Final Base excess, Arterial 05/15/2024 16:12:52 -2.5 Below low normal -2.0-2.0 (mmol/L) Final Hemoglobin [Mass/volume] in Blood by Oximetry 05/15/2024 16:12:52 8.9 Below low normal 12.0-15.3 (g/dL) Final Oxyhemoglobin, Arterial (FO2HB) 05/15/2024 16:12:52 99.1 Above high normal 94.0-99.0 (% total Hgb) Final Carboxyhemoglobin 05/15/2024 16:12:52 1.2 <=1.5 (% total Hgb) Final Smokers: 0-9.0 % Methemoglobin 05/15/2024 16:12:52 0.0 <=1.5 (% total Hgb) Final Deoxyhemoglobin/Hemoglobin.t sandy l in Arterial blood 05/15/2024 16:12:52 0.0 0.0-5.0 (% tot al Hgb) Final Oxygen content in Arterial blood 05/15/2024 16:12:52 Final Not calculated. Oxygen/Total gas setting [Volume Fraction] Ventilator 05/15/2024 16:12:52 40 (%) Final O2 FLOW, ARTERIAL - [facility] 05/15/2024 16:12:52 Not Provided (L/min) Final Bicarbonate, Venous, POC (i-STAT) 05/15/2024 16:12:52 21.5 Below low normal 23.0-31.0 (mmol/L) Final Performing Location LABORATORY [facility] [place] - [address] [facility] [address]
--- OUTSIDE RECORDS SUMMARY | 2024-06-06 15:46 | External Medical Summary ---
Author Name Unknown Address Unknown Organization : Laboratory Report Ordering Provider Test Date Status FRANCIS BALDWIN 05/15/2024 16:18:07 Final Observation Date Value Abnormality Reference (Units ) Status Glucose Point of Care 05/15/2024 16:18:07 121 Above high normal 70-120 (mg/dL) Final Performing Location
--- OUTSIDE RECORDS SUMMARY | 2024-06-06 15:46 | External Medical Summary ---
Author Name Unknown Address Unknown Organization : Laboratory Report Ordering Provider Test Date Status FRANCIS BALDWIN 05/15/2024 18:11:11 Final Observation Date Value Abnormality Reference (Units ) Status Glucose Point of Care 05/15/2024 18:11:11 127 Above high normal 70-120 (mg/dL) Final Performing Location
--- OUTSIDE RECORDS SUMMARY | 2024-06-06 15:46 | External Medical Summary ---
Author Name Unknown Address Unknown Organization K01:[place] [facility] [facility] [address] [place] [address] Laboratory Report Ordering Provider Test Date Status PADMINI COLEMAN 05/18/2024 06:35:00 Final Observation Date Value Abnormality Reference (Units ) Status WBC, Total 05/18/2024 06:35:00 9.06 4.00-10.80 (K/uL) Final RBC 05/18/2024 06:35:00 2.76 3.85-5.15 (M/uL) Final Hemoglobin 05/18/2024 06:35:00 8.3 Below low normal 12.0-15.3 (g/dL) Final HCT 05/18/2024 06:35:00 25.8 Below low normal 36.0-45.2 (%) Final MCV 05/18/2024 06:35:00 93.5 81.5-97.5 (fL) Final MCH 05/18/2024 06:35:00 30.1 27.0-34.0 (pg) Final MCHC 05/18/2024 06:35:00 32.2 32.0-36.0 (g/dL) Final RDW 05/18/2024 06:35:00 14.4 11.5-15.5 (%) Final Platelets 05/18/2024 06:35:00 96 Below low normal 140-400 (K/uL) Final MPV 05/18/2024 06:35:00 11.7 6.6-11.1 (fL) Final Nucleated erythrocytes/100 leukocytes [Ratio] in Blood by Automated count 05/18/2024 06:35:00 0 <=0 (/100 WBCs) Final Performing Location [place] [facility] [place] [address] [place] [address]
--- OUTSIDE RECORDS SUMMARY | 2024-06-06 15:46 | External Medical Summary ---
Author Name Unknown Address Unknown Organization K01:[place] [facility] [place] [address] [place] [address] Laboratory Report Ordering Provider Test Date Status PADMINI COLEMAN 05/18/2024 06:35:00 Final Observation Date Value Abnormality Reference (Units ) Status BUN 05/18/2024 06:35:00 20 6-20 (mg/dL) Final Creatinine 05/18/2024 06:35:00 1.0 0.5-1.0 (mg/dL) Final Glomerular filtration rate/1.73 sq M.predicted [Volume Rate/Area] in Serum, Plasma or Blood by Creatinine-based formula (CKD-EPI) 05/18/2024 06:35:00 57 Below low normal >=60 (mL/min) Final eGFR is calculated based on the CKD-EPI 2020 equation. Sodium 05/18/2024 06:35:00 139 135-146 (m mol/L) Final Potassium 05/18/2024 06:35:00 4.0 3.5-5.1 (m mol/L) Final Cl 05/18/2024 06:35:00 106 98-107 (mm ol/L) Final CO2 05/18/2024 06:35:00 22 22-32 (mmo l/L) Final Anion gap 05/18/2024 06:35:00 11 7-15 (mmol /L) Final Glucose 05/18/2024 06:35:00 94 70-120 (mg /dL) Final Calcium 05/18/2024 06:35:00 8.8 8.4-10.2 ( mg/dL) Final Performing Location [facility]ORY [facility] [place] [address] [place] [address]
--- OUTSIDE RECORDS SUMMARY | 2024-06-06 15:46 | External Medical Summary ---
Author Name Unknown Address Unknown Organization K01:LABORATORY [facility] [place] - [facility] [address] [facility] [address] Laboratory Report Ordering Provider Test Date Status APDMINI COLEMAN 05/20/2024 06:42:00 Final Observation Date Value Abnormality Reference (Units ) Status WBC, Total 05/20/2024 06:42:00 7.38 4.00-10.80 (K/uL) Final RBC 05/20/2024 06:42:00 2.80 3.85-5.15 (M/uL) Final Hemoglobin 05/20/2024 06:42:00 8.4 Below low normal 12.0-15.3 (g/dL) Final HCT 05/20/2024 06:42:00 25.3 Below low normal 36.0-45.2 (%) Final MCV 05/20/2024 06:42:00 90.4 81.5-97.5 (fL) Final MCH 05/20/2024 06:42:00 30.0 27.0-34.0 (pg) Final MCHC 05/20/2024 06:42:00 33.2 32.0-36.0 (g/dL) Final RDW 05/20/2024 06:42:00 14.2 11.5-15.5 (%) Final Platelets 05/20/2024 06:42:00 174 140-400 (K/uL) Final MPV 05/20/2024 06:42:00 10.1 6.6-11.1 (fL) Final Nucleated erythrocytes/100 leukocytes [Ratio] in Blood by Automated count 05/20/2024 06:42:00 0 <=0 (/100 WBCs) Final Performing Location LABORATORY [facility] [place] - [address] [place] [address]
--- OUTSIDE RECORDS SUMMARY | 2024-06-06 15:46 | External Medical Summary ---
Author Name Unknown Address Unknown Organization K01:LABORATORY [facility] [place] - [address] [place] [address] Laboratory Report Ordering Provider Test Date Status PADMINI COLEMAN 05/20/2024 06:42:00 Final Observation Date Value Abnormality Reference (Units ) Status BUN 05/20/2024 06:42:00 22 Above high normal 6-20 (mg/dL) Final Creatinine 05/20/2024 06:42:00 1.0 0.5-1.0 (mg/dL) Final Glomerular filtration rate/1.73 sq M.predicted [Volume Rate/Area] in Serum, Plasma or Blood by Creatinine-based formula (CKD-EPI) 05/20/2024 06:42:00 60 >=60 (mL/min) Final eGFR is calculated based on the CKD-EPI 2020 equation. Sodium 05/20/2024 06:42:00 139 135-146 (m mol/L) Final Potassium 05/20/2024 06:42:00 3.6 3.5-5.1 (m mol/L) Final Cl 05/20/2024 06:42:00 103 98-107 (mm ol/L) Final CO2 05/20/2024 06:42:00 24 22-32 (mmo l/L) Final Anion gap 05/20/2024 06:42:00 12 7-15 (mmol /L) Final Glucose 05/20/2024 06:42:00 104 70-120 (mg /dL) Final Calcium 05/20/2024 06:42:00 8.9 8.4-10.2 ( mg/dL) Final Performing Location LABORATORY [facility] [place] - [address] [place] [address]
--- OUTSIDE RECORDS SUMMARY | 2024-06-06 15:46 | External Medical Summary ---
Author Name Unknown Address Unknown Organization K01:LABORATORY [place] - [address] [place] [address] Laboratory Report Ordering Provider Test Date Status PADMINI COLEMAN 05/16/2024 00:15:53 Final Observation Date Value Abnormality Reference (Units ) Status Magnesium 05/16/2024 00:15:53 2.2 1.5-2.6 (m g/dL) Final Performing Location [facility]ORY [facility] - [address] [facility] [address]
--- OUTSIDE RECORDS SUMMARY | 2024-06-06 15:46 | External Medical Summary ---
Author Name Unknown Address Unknown Organization K01:LAB[facility]ATORY [facility] [place] [address] [facility] [place] [address] Laboratory Report Ordering Provider Test Date Status PADMINI COLEMAN 05/19/2024 06:18:00 Final Observation Date Value Abnormality Reference (Units ) Status SYNC LEUKOCYTES IN BLOOD BY AUTOMATED COUNT 05/19/2024 06:18:00 8.07 4.00-10.80 (K/uL) Final Segs 05/19/2024 06:18:00 65.7 40.0-75.0 (%) Final Lymphs % 05/19/2024 06:18:00 19.6 18.0-42.0 (%) Final Monos 05/19/2024 06:18:00 11.5 Above high normal 1.0-11.0 (%) Final Eosinophils 05/19/2024 06:18:00 2.2 0.0-6.0 (%) Final Basos 05/19/2024 06:18:00 0.5 0.0-2.0 (%) Final Immature Granulocyte, Percent 05/19/2024 06:18:00 0.5 0.0-2.0 (%) Final Absolute Segs 05/19/2024 06:18:00 5.30 1.80-7.70 (K/uL) Final Lymphs, absolute 05/19/2024 06:18:00 1.58 1.00-4.80 (K/ul) Final Monos, Abs 05/19/2024 06:18:00 0.93 0.00-1.10 (K/uL) Final Eos, Abs 05/19/2024 06:18:00 0.18 0.00-0.70 (K/uL) Final Basos, Abs 05/19/2024 06:18:00 0.04 0.00-0.20 (K/uL) Final Immature Granulocytes, Number 05/19/2024 06:18:00 0.04 0.00-0.20 (K/uL) Final Performing Location LABORATORY [facility] [place] - [facility] [address] [facility] [address]
--- OUTSIDE RECORDS SUMMARY | 2024-06-06 15:46 | External Medical Summary ---
Author Name Unknown Address Unknown Organization K01:LABORATORY [facility] [place] [address] [place] [address] Laboratory Report Ordering Provider Test Date Status PADMINI COLEMAN 05/18/2024 06:35:00 Final Observation Date Value Abnormality Reference (Units ) Status SYNC LEUKOCYTES IN BLOOD BY AUTOMATED COUNT 05/18/2024 06:35:00 9.06 4.00-10.80 (K/uL) Final Segs 05/18/2024 06:35:00 66.9 40.0-75.0 (%) Final Lymphs % 05/18/2024 06:35:00 19.0 18.0-42.0 (%) Final Monos 05/18/2024 06:35:00 12.4 Above high normal 1.0-11.0 (%) Final Eosinophils 05/18/2024 06:35:00 0.9 0.0-6.0 (%) Final Basos 05/18/2024 06:35:00 0.2 0.0-2.0 (%) Final Immature Granulocyte, Percent 05/18/2024 06:35:00 0.6 0.0-2.0 (%) Final Absolute Segs 05/18/2024 06:35:00 6.07 1.80-7.70 (K/uL) Final Lymphs, absolute 05/18/2024 06:35:00 1.72 1.00-4.80 (K/ul) Final Monos, Abs 05/18/2024 06:35:00 1.12 Above high normal 0.00-1.10 (K/uL) Final Eos, Abs 05/18/2024 06:35:00 0.08 0.00-0.70 (K/uL) Final Basos, Abs 05/18/2024 06:35:00 0.02 0.00-0.20 (K/uL) Final Immature Granulocytes, Number 05/18/2024 06:35:00 0.05 0.00-0.20 (K/uL) Final Performing Location LABORATORY [facility] [place] - [facility] [place] [address]
--- OUTSIDE RECORDS SUMMARY | 2024-06-06 15:46 | External Medical Summary ---
Author Name Unknown Address Unknown Organization K01:LABORATORY [facility] [place] - [address] [place] [address] Laboratory Report Ordering Provider Test Date Status VENECIA OAKLEY 05/16/2024 14:59:00 Final Observation Date Value Abnormality Reference (Units ) Status Albumin 05/16/2024 14:59:00 4.2 3.8-5.0 (g/dL) Final AST (Aspartate aminotransferase) 05/16/2024 14:59:00 29 10-35 (U/L) Final Alk Phos 05/16/2024 14:59:00 33 Below low normal 35-130 (U/L) Final ALT (Alanine aminotransferase) 05/16/2024 14:59:00 18 10-35 (U/L) Final Bilirubin, Total 05/16/2024 14:59:00 0.8 <=1.2 (mg/dL) Final Bilirubin, Direct 05/16/2024 14:59:00 0.3 0.0-0.3 (mg/dL) Final Protein 05/16/2024 14:59:00 5.7 Below low normal 6.0-8.3 (g/dL) Final Performing Location LABORATORY [facility] [place] - [address] [place] [address]
--- OUTSIDE RECORDS SUMMARY | 2024-06-06 15:46 | External Medical Summary ---
Author Name Unknown Address Unknown Organization K01:LABORATORY [facility] [place] - [facility] [address] [place] [address] Laboratory Report Ordering Provider Test Date Status PADMINI COLEMAN 05/16/2024 03:28:18 Final Observation Date Value Abnormality Reference (Units ) Status BUN 05/16/2024 03:28:18 12 6-20 (mg/dL) Final Creatinine 05/16/2024 03:28:18 1.0 0.5-1.0 (mg/dL) Final Glomerular filtration rate/1.73 sq M.predicted [Volume Rate/Area] in Serum, Plasma or Blood by Creatinine-based formula (CKD-EPI) 05/16/2024 03:28:18 63 >=60 (mL/min) Final eGFR is calculated based on the CKD-EPI 2020 equation. Sodium 05/16/2024 03:28:18 139 135-146 (m mol/L) Final Potassium 05/16/2024 03:28:18 4.1 3.5-5.1 (m mol/L) Final Cl 05/16/2024 03:28:18 109 Above high normal 98 -107 (mmol/L) Final CO2 05/16/2024 03:28:18 20 Below low normal 22- 32 (mmol/L) Final Anion gap 05/16/2024 03:28:18 10 7-15 (mmol /L) Final Glucose 05/16/2024 03:28:18 139 Above high normal 70 -120 (mg/dL) Final Calcium 05/16/2024 03:28:18 8.0 Below low normal 8.4 -10.2 (mg/dL) Final Performing Location LABORATORY [facility] [place] - [address] [place] [address]
--- OUTSIDE RECORDS SUMMARY | 2024-06-06 15:47 | External Medical Summary ---
Author Name Unknown Address Unknown Organization K01:[place]ORY [facility] [place] [address] [place] [address] Laboratory Report Ordering Provider Test Date Status CHAIM GARCIA 05/14/2024 05:51:00 Final Warfarin Therapy
INR: 2 .0-3.0 conventional anticoagulation
INR: 2.5- 3.5 high intensity anticoagulation Observation Date Value Abnormality Reference (Units ) Status PT 05/14/2024 05:51:00 13.0 11.6-15.2 (seconds) Final INR 05/14/2024 05:51:00 1.0 0.8-1.2 Final Performing Location LAB[facility]ORY [facility] [place] [address] [place] [address]
--- OUTSIDE RECORDS SUMMARY | 2024-06-06 15:47 | External Medical Summary ---
Author Name Unknown Address Unknown Organization K01:LABORATORY [facility] [place] - [address] [facility] [address] Laboratory Report Ordering Provider Test Date Status ANDRAE TITUS 05/15/2024 08:19:08 Final Observation Date Value Abnormality Reference (Units ) Status Body temperature 05/15/2024 08:19:08 37.0 (C) Final pH of Arterial blood 05/15/2024 08:19:08 7.348 Below low normal 7.350-7.450 (units) Final Carbon dioxide [Partial pressure] in Arterial blood 05/15/2024 08:19:08 41.5 35.0-45.0 (mmHg) Final Oxygen [Partial pressure] in Arterial blood 05/15/2024 08:19:08 247.0 Above high normal 75.0-100.0 (mmHg) Final Base excess, Arterial 05/15/2024 08:19:08 -2.7 Below low normal -2.0-2.0 (mmol/L) Final Hemoglobin [Mass/volume] in Blood by Oximetry 05/15/2024 08:19:08 12.2 12.0-15.3 (g/dL) Final Oxyhemoglobin, Arterial (FO2HB) 05/15/2024 08:19:08 97.9 94.0-99.0 (% total Hgb) Final Carboxyhemoglobin 05/15/2024 08:19:08 1.4 <=1.5 (% total Hgb) Final Smokers: 0-9.0 % Methemoglobin 05/15/2024 08:19:08 0.7 <=1.5 (% total Hgb) Final Deoxyhemoglobin/Hemog lobin.total in Arterial blood 05/15/2024 08:19:08 0.0 0.0-5.0 (% total Hgb) Final Oxygen content in Arterial blood 05/15/2024 08:19:08 17.4 15.0-24.0 (%vol) Final Potassium, Whole Blood 05/15/2024 08:19:08 4.1 3.5-5.1 (mmol/L) Final Sodium, Whole Blood 05/15/2024 08:19:08 138 135-146 (mmol/L) Final Chloride, Whole Blood 05/15/2024 08:19:08 111 Above high normal 98-107 (mmol/L) Final Calcium.ionized [Moles/volume] in Blood by Ion-selective membrane electrode (ISE) 05/15/2024 08:19:08 1.15 1.13-1.32 (mmol/L) Final Anion gap, Whole Blood 05/15/2024 08:19:08 5.4 Below low normal 7.0-15.0 (mmol/L) Final Glucose, whole blood 05/15/2024 08:19:08 114 70-120 (mg/dL) Final Oxygen/Total gas setting [Volume Fraction] Ventilator 05/15/2024 08:19:08 Not Provided (%) Final O2 FLOW, ARTERIAL - [facility] 05/15/2024 08:19:08 Not Provided (L/min) Final Bicarbonate, Venous, POC (i-STAT) 05/15/2024 08:19:08 22.2 Below low normal 23.0-31.0 (mmol/L) Final Performing Location LABORATORY [facility] [place] - [address] [facility] [address]
--- OUTSIDE RECORDS SUMMARY | 2024-06-06 15:47 | External Medical Summary ---
Author Name Unknown Address Unknown Organization K01:LAB[facility]ORY [facility] [place] - [address] [place] [address] [place] [address] Laboratory Report Ordering Provider Test Date Status ANDRAE TITUS 05/15/2024 11:25:25 Final Observation Date Value Abnormality Reference (Units ) Status Platelets 05/15/2024 11:25:25 74 Below low normal 140 -400 (K/uL) Final Performing Location LABORATORY [facility] - [address] [place] [address]
--- OUTSIDE RECORDS SUMMARY | 2024-06-06 15:47 | External Medical Summary ---
Author Name Unknown Address Unknown Organization : Laboratory Report Ordering Provider Test Date Status FRANCIS BALDWIN 05/15/2024 10:59:36 Final NORMAL (NON-HEPARINIZED) 74- 137 SECONDS
HEPARINIZED 200+ SECONDS
CRITICAL GREATER THAN 1000 SECONDS
null Observation Date Value Abnormality Reference (Units ) Status Kaolin activated time [Units/volume] in Blood 05/15/2024 10:59:36 599 50-1000 (secs) Final Performing Location
--- OUTSIDE RECORDS SUMMARY | 2024-06-06 15:47 | External Medical Summary ---
Author Name Unknown Address Unknown Organization K01:[place] [facility] [place] [address] [facility] [place] [address] Laboratory Report Ordering Provider Test Date Status FRANCIS BALDWIN 05/15/2024 10:18:00 Final Observation Date Value Abnormality Reference (Units ) Status Platelets 05/15/2024 10:18:00 95 Below low normal 140 -400 (K/uL) Final Performing Location [place] [facility] [place] [address] [facility] [place] [address]
--- OUTSIDE RECORDS SUMMARY | 2024-06-06 15:47 | External Medical Summary ---
Author Name Unknown Address Unknown Organization K01:LABORATORY [facility] [place] - [facility] [address] [facility] [address] Laboratory Report Ordering Provider Test Date Status FRANCIS BALDWIN 05/15/2024 10:18:00 Final Observation Date Value Abnormality Reference (Units ) Status Clot formation [Time] in Blood by Thromboelastography 05/15/2024 10:18:00 6.7 2.5-8.3 (minutes) Final Clot strength in Blood by Thromboelastography 05/15/2024 10:18:00 2.0 0.5-3.7 (minutes) Final Clot angle in Blood by Thromboelastography 05/15/2024 10:18:00 62.9 46.8-78.4 (degrees) Final Maximum clot firmness [Length] in Blood by Thromboelastography 05/15/2024 10:18:00 55.8 50.6-72.5 (mm) Final Coagulation index in Blood b y Thromboelastography 05/15/2024 10:18:00 -1.3 -3.0-3.0 Final Clot Lysis [Length fraction] in Blood by Thromboelastography --30 minutes post maximum clot amplitude 05/15/2024 10:18:00 0.0 0.0-7.5 (%) Final This is an appended report. These results have been appended to a previously preliminary verified report. Performing Location LABORATORY [facility] [place] - [address] [facility] [address]
--- OUTSIDE RECORDS SUMMARY | 2024-06-06 15:47 | External Medical Summary ---
Author Name Unknown Address Unknown Organization K01:[place]ATORY [facility] [place] - [facility] [address] [facility] [address] Laboratory Report Ordering Provider Test Date Status ANDRAE TITUS 05/15/2024 11:25:25 Final Observation Date Value Abnormality Reference (Units ) Status Clot formation [Time] in Blood by Thromboelastography 05/15/2024 11:25:25 6.2 2.5-8.3 (minutes) Final Clot strength in Blood by Thromboelastography 05/15/2024 11:25:25 1.9 0.5-3.7 (minutes) Final Clot angle in Blood by Thromboelastography 05/15/2024 11:25:25 66.2 46.8-78.4 (degrees) Final Maximum clot firmness [Length] in Blood by Thromboelastography 05/15/2024 11:25:25 55.3 50.6-72.5 (mm) Final Coagulation index in Blood b y Thromboelastography 05/15/2024 11:25:25 -0.8 -3.0-3.0 Final Clot Lysis [Length fraction] in Blood by Thromboelastography --30 minutes post maximum clot amplitude 05/15/2024 11:25:25 0.1 0.0-7.5 (%) Final This is an appended report. These results have been appended to a previously preliminary verified report. Performing Location LABORATORY [facility] [place] - [address] [facility] [address]
--- OUTSIDE RECORDS SUMMARY | 2024-06-06 15:47 | External Medical Summary ---
Author Name Unknown Address Unknown Organization K01:LABORATORY [facility] [place] - [address] [facility] [address] Laboratory Report Ordering Provider Test Date Status ANDRAE TITUS 05/15/2024 11:25:25 Final Observation Date Value Abnormality Reference (Units ) Status Body temperature 05/15/2024 11:25:25 37.0 (C) Final pH of Arterial blood 05/15/2024 11:25:25 7.336 Below low normal 7.350-7.450 (units) Final Carbon dioxide [Partial pressure] in Arterial blood 05/15/2024 11:25:25 43.6 35.0-45.0 (mmHg) Final Oxygen [Partial pressure] in Arterial blood 05/15/2024 11:25:25 153.0 Above high normal 75.0-100.0 (mmHg) Final Base excess, Arterial 05/15/2024 11:25:25 -2.5 Below low normal -2.0-2.0 (mmol/L) Final Hemoglobin [Mass/volume] in Blood by Oximetry 05/15/2024 11:25:25 9.1 Below low normal 12.0-15.3 (g/dL) Final Oxyhemoglobin, Arterial (FO2HB) 05/15/2024 11:25:25 97.3 94.0-99.0 (% total Hgb) Final Carboxyhemoglobin 05/15/2024 11:25:25 1.4 <=1.5 (% total Hgb) Final Smokers: 0-9.0 % Methemoglobin 05/15/2024 11:25:25 1.0 <=1.5 (% total Hgb) Final Deoxyhemoglobin/Hemog lobin.total in Arterial blood 05/15/2024 11:25:25 0.3 0.0-5.0 (% total Hgb) Final Oxygen content in Arterial blood 05/15/2024 11:25:25 12.8 Below low normal 15.0-24.0 (%vol) Final Potassium, Whole Blood 05/15/2024 11:25:25 5.3 Above high normal 3.5-5.1 (mmol/L) Final Sodium, Whole Blood 05/15/2024 11:25:25 139 135-146 (mmol/L) Final Chloride, Whole Blood 05/15/2024 11:25:25 107 98-107 (mmol/L) Final Calcium.ionized [Moles/volume] in Blood by Ion-selective membrane electrode (ISE) 05/15/2024 11:25:25 1.27 1.13-1.32 (mmol/L) Final Anion gap, Whole Blood 05/15/2024 11:25:25 9.1 7.0-15.0 (mmol/L) Final Glucose, whole blood 05/15/2024 11:25:25 134 Above high normal 70-120 (mg/dL) Final Oxygen/Total gas setting [Volume Fraction] Ventilator 05/15/2024 11:25:25 Not Provided (%) Final O2 FLOW, ARTERIAL - [facility] 05/15/2024 11:25:25 Not Provided (L/min) Final Bicarbonate, Venous, POC (i-STAT) 05/15/2024 11:25:25 22.7 Below low normal 23.0-31.0 (mmol/L) Final Performing Location LABORATORY [facility] [place] - [address] [facility] [address]
--- OUTSIDE RECORDS SUMMARY | 2024-06-06 15:47 | External Medical Summary ---
Author Name Unknown Address Unknown Organization : Laboratory Report Ordering Provider Test Date Status ELE BALDWINSOFI 05/15/2024 12:30:10 Final Observation Date Value Abnormality Reference (Units) Status Blood draw [PhenX] 05/15/2024 12:30:10 Arterial Draw Final pH, POC (i-STAT) 05/15/2024 12:30:10 7.372 7.350-7.450 Final PCO2 POC (i-STAT) 05/15/2024 12:30:10 35.2 35.0-45.0 (mm Hg) Final PO2 POC (i-STAT) 05/15/2024 12:30:10 317 Above high normal 75-100 (mm Hg) Final Base excess standard in Arterial blood by calculation 05/15/2024 12:30:10 -4 Below low normal -2-2 (mmol/L) Final Bicarbonate, Venous, POC (i-STAT) 05/15/2024 12:30:10 20.4 Below low normal 23.0-31.0 (mmol/L) Final O2 Sat, calculated POC (i-STAT) 05/15/2024 12:30:10 100.0 Above high normal 94.0-98.0 (%) Final Glucose, whole blood 05/15/2024 12:30:10 136 Above high normal 70-120 (mg/dL) Final Potassium, Whole Blood 05/15/2024 12:30:10 4.7 3.5-5.1 (mmol/L) Final Sodium, Whole Blood 05/15/2024 12:30:10 138 135-146 (mmol/L) Final Calcium, Ionized, Whole Blood 05/15/2024 12:30:10 1.12 Below low normal 1.13-1.32 (mmol/L) Final Hemoglobin POC (i-STAT) 05/15/2024 12:30:10 9.5 Below low normal 12.0-15.3 (g/dL) Final HCT 05/15/2024 12:30:10 28 Below low normal 36-45 (%) Final Oxygen/Total gas setting [Volume Fraction] Ventilator 05/15/2024 12:30:10 100 (%) Final Performing Location
--- OUTSIDE RECORDS SUMMARY | 2024-06-06 15:47 | External Medical Summary ---
Author Name Unknown Address Unknown Organization K01:[place] [facility] [place] [facility] [place] [address] Laboratory Report Ordering Provider Test Date Status JAREDJESSELOBO 05/15/2024 12:29:59 Final Warfarin Therapy
INR: 2 .0-3.0 conventional anticoagulation
INR: 2.5- 3.5 high intensity anticoagulation Observation Date Value Abnormality Reference (Units ) Status PT 05/15/2024 12:29:59 15.6 Above high normal 11 .6-15.2 (seconds) Final INR 05/15/2024 12:29:59 1.2 0.8-1.2 Final Performing Location [place] [facility] [place] [address] [place] [address]
--- OUTSIDE RECORDS SUMMARY | 2024-06-06 15:47 | External Medical Summary ---
Author Name Unknown Address Unknown Organization K01:[place] [facility] [address] [place] [address] Laboratory Report Ordering Provider Test Date Status PADMINI COLEMAN 05/15/2024 12:29:59 Final Stop Collection after Justin kaufman is removed Observation Date Value Abnormality Reference (Units ) Status Oxygen saturation in Venous blood 05/15/2024 12:29:59 66.2 40.0-85.0 (%) Final Performing Location [place] [facility] [place] [address] [place] [address]
--- OUTSIDE RECORDS SUMMARY | 2024-06-06 15:47 | External Medical Summary ---
Author Name Unknown Address Unknown Organization K01:LABORATORY [facility] [place] - [facility] [address] [facility] [address] Laboratory Report Ordering Provider Test Date Status PADMINI COLEMAN 05/15/2024 12:29:59 Final Observation Date Value Abnormality Reference (Units ) Status WBC, Total 05/15/2024 12:29:59 11.03 Above high normal 4.00-10.80 (K/uL) Final RBC 05/15/2024 12:29:59 3.32 3.85-5.15 (M/uL) Final Hemoglobin 05/15/2024 12:29:59 9.9 Below low normal 12.0-15.3 (g/dL) Final HCT 05/15/2024 12:29:59 30.2 Below low normal 36.0-45.2 (%) Final MCV 05/15/2024 12:29:59 91.0 81.5-97.5 (fL) Final MCH 05/15/2024 12:29:59 29.8 27.0-34.0 (pg) Final MCHC 05/15/2024 12:29:59 32.8 32.0-36.0 (g/dL) Final RDW 05/15/2024 12:29:59 13.2 11.5-15.5 (%) Final Platelets 05/15/2024 12:29:59 102 Below low normal 140-400 (K/uL) Final MPV 05/15/2024 12:29:59 11.0 6.6-11.1 (fL) Final Nucleated erythrocytes/100 leukocytes [Ratio] in Blood by Automated count 05/15/2024 12:29:59 0 <=0 (/100 WBCs) Final Performing Location LABORATORY [facility] [place] - [address] [place] [address]
--- OUTSIDE RECORDS SUMMARY | 2024-06-06 15:47 | External Medical Summary ---
Author Name Unknown Address Unknown Organization : Laboratory Report Ordering Provider Test Date Status FRANCIS BALDWIN 05/15/2024 06:45:39 Final Observation Date Value Abnormality Reference (Units ) Status Glucose Point of Care 05/15/2024 06:45:39 89 70-120 (mg/dL) Final Performing Location
--- OUTSIDE RECORDS SUMMARY | 2024-06-06 15:47 | External Medical Summary ---
Author Name Unknown Address Unknown Organization K01:LABORATORY [facility] [place] - [facility] [place] [address] [facility] [place] [address] Laboratory Report Ordering Provider Test Date Status ANDRAE TITUS 05/15/2024 11:25:25 Final Anticoagulation may affect t esting. Refer to [facility] Test Catalog for a list of effects. Observation Date Value Abnormality Reference (Units ) Status aPTT panel - Platelet poor plasma 05/15/2024 11:25:25 105 Above high normal 21-38 (seconds) Final Performing Location LABORATORY [facility] [place] - [address] [facility] [address]
--- OUTSIDE RECORDS SUMMARY | 2024-06-06 15:47 | External Medical Summary | Summary of Care ---
Author Name Unknown Organization [facility] Address [address] [place] [address] Phone [phone] Care Team Providers Care Environmental Auditor Name Role Phone Jasmina Taylor MD Primary Care Provide r Encounter Details Date Type Department Care Team (Late st Contact Info) Description 05/14/2024 Population Health External Data Unspecified Department Allergies Active Allergy Reactions Criticality Noted Date Comments Baclofen 04/26/2022 Vertigo/extreme dizziness Codeine 02/18/2013 "deathly sick" Levofloxacin Nausea/vomiting 08/12/2018 Sulfa Antibiotics 08/25/2001 Rash documented as of this encounter (statuses as of 05/14/2024) Medications Medication Sig Dispensed Refills Start Date [...] as of this encounter (statuses as of 05/14/2024) Active Problems Problem Noted Date Diagnosed Date Coronary artery disease 05/13/2024 Primary osteoarthritis of right knee 03/13/2024 Hiatal [...] as of this encounter (statuses as of 05/14/2024) Resolved Problems Problem Noted Date Diagnosed Date [...] as of this encounter (statuses as of 05/14/2024) Immunizations Name Administration Dates Next Due COVID-19 mRNA, LNP-s, No Pre serve, 2-Dose Series ([employer]) 08/22/2021,12/14/2020,11/23/2020 COVID-19, LNP-s, No Preserve , Clive-sucrose, Ages 12+ (Pfizer) 02/13/2022 COVID-19, MRNA-LNP, 23-24, P F, 30 MCG/0.3 mL, 12 YRS AND ABOVE, IM (PFIZER-Comirnat) 08/23/2023 Covid-19, Mrna, Lnp-s, Pf, B ivalent, [...] Info) Description 06/01/2024 8:30 AM EDT Imaging [facility] 2nd Floor Cardiology, [address] [place] [address] 06/01/2024 10:00 AM EDT Imaging [facility] 2nd Floor Cardiology, [address] [place] [address] 06/01/2024 11:00 AM EDT Imaging [facility] 2nd Floor Cardiology, [place] [facility] [place] [address] 06/01/2024 1:00 PM EDT Imaging [facility] 2nd Floor Cardiology, [place] [address] [place] [address] 06/17/2024 9:00 AM EDT Nurse Only Ancillary [address] [place] [address] [place], Nurse [address] [place] [address] 07/02/2024 9:30 AM EDT Office Visit Cardiology [address] [place] [address] Sarah Antoine PA-C [address] [place] [address] 08/25/2024 1:40 PM EST Office Visit Family Medicine [address] [place] [phone] Jasmina Taylor MD [address] [place] [address] [place] [address] 10/05/2024 2:00 PM EST Office Visit Gastroenterology, [facility] [address] [place] [address] Martha Porter CRNP [address] [place] [address] Scheduled Procedures Name Priority Associated Diagnoses Date/Ti [...] 02/27/2022, 02/18, 01/21/2019, Additional history exists GFR 05/14/2025 05/14/2024, 04/21, 02/21/2024, Additional history exists Colonoscopy 03/15/2033 03/15/2023, 02/19, [...] on File) Date Activated Date Inactivated Comments 05/13/2024 2:12 PM This order ref lects the patients wishes and were consensually agreed [...] and were consensually agreed upon. Care Teams Environmental Auditor Relationship Specialty Start Date End Date Jasmina Taylor MD [address] [place] [address] [place] [id number] PCP - General Family Medicine 05/07/24 documented as of this encounter
--- OUTSIDE RECORDS SUMMARY | 2024-06-06 15:47 | External Medical Summary ---
Author Name Unknown Address Unknown Organization : Laboratory Report Ordering Provider Test Date Status ELE BALDWINSOFI 05/15/2024 08:21:10 Final Observation Date Value Abnormality Reference (Units) Status Blood draw [PhenX] 05/15/2024 08:21:10 Arterial Draw Final pH, POC (i-STAT) 05/15/2024 08:21:10 7.321 Below low normal 7.350-7.450 Final PCO2 POC (i-STAT) 05/15/2024 08:21:10 41.7 35.0-45.0 (mm Hg) Final PO2 POC (i-STAT) 05/15/2024 08:21:10 251 Above high normal 75-100 (mm Hg) Final Base excess standard in Arterial blood by calculation 05/15/2024 08:21:10 -4 Below low normal -2-2 (mmol/L) Final Bicarbonate, Venous, POC (i-STAT) 05/15/2024 08:21:10 21.5 Below low normal 23.0-31.0 (mmol/L) Final O2 Sat, calculated POC (i-STAT) 05/15/2024 08:21:10 100.0 Above high normal 94.0-98.0 (%) Final Glucose, whole blood 05/15/2024 08:21:10 104 70-120 (mg/dL) Final Potassium, Whole Blood 05/15/2024 08:21:10 4.1 3.5-5.1 (mmol/L) Final Sodium, Whole Blood 05/15/2024 08:21:10 139 135-146 (mmol/L) Final Calcium, Ionized, Whole Blood 05/15/2024 08:21:10 1.19 1.13-1.32 (mmol/L) Final Hemoglobin POC (i-STAT) 05/15/2024 08:21:10 11.6 Below low normal 12.0-15.3 (g/dL) Final HCT 05/15/2024 08:21:10 34 Below low normal 36-45 (%) Final Performing Location
--- OUTSIDE RECORDS SUMMARY | 2024-06-06 15:47 | External Medical Summary ---
Author Name Unknown Address Unknown Organization K01:LABORATORY [facility] [place] - [address] [facility] [address] Laboratory Report Ordering Provider Test Date Status MATTIE GUZMAN 05/14/2024 14:40:20 Final Observation Date Value Abnormality Reference (Units) Status Bacteria identified in Specimen by Culture 05/14/2024 14:40:20 No significant growth Final Test: Culture, Urine, Quanti tative
Specimen Source: Urine, Clean Catch
Specimen Type: Urine
Specimen Date: 05/14/2024 1440
Result Date: 05/15/2024 1037
Result Status: Final result
Resulting Lab: LABORATORY [facility]
[address]
[facility] [address]

CULTURE

No significant growth

null Performing Location LABORATORY [facility] [place] - [address] [facility] [address]
--- OUTSIDE RECORDS SUMMARY | 2024-06-06 15:47 | External Medical Summary ---
Author Name Unknown Address Unknown Organization K01:[place] [facility] [place] [facility] [address] [facility] [facility] [address] [place] [address] Laboratory Report Ordering Provider Test Date Status CHAIM GARCIA 05/15/2024 03:42:00 Final Observation Date Value Abnormality Reference (Units ) Status BUN 05/15/2024 03:42:00 16 6-20 (mg/dL) Final Creatinine 05/15/2024 03:42:00 1.0 0.5-1.0 (mg/dL) Final Glomerular filtration rate/1.73 sq M.predicted [Volume Rate/Area] in Serum, Plasma or Blood by Creatinine-based formula (CKD-EPI) 05/15/2024 03:42:00 64 >=60 (mL/min) Final eGFR is calculated based on the CKD-EPI 2020 equation. Sodium 05/15/2024 03:42:00 137 135-146 (m mol/L) Final Potassium 05/15/2024 03:42:00 3.6 3.5-5.1 (m mol/L) Final Result may be falsely elevat ed due to hemolysis. Cl 05/15/2024 03:42:00 105 98-107 (mm ol/L) Final CO2 05/15/2024 03:42:00 19 Below low normal 22- 32 (mmol/L) Final Anion gap 05/15/2024 03:42:00 13 7-15 (mmol /L) Final Glucose 05/15/2024 03:42:00 101 70-120 (mg /dL) Final Calcium 05/15/2024 03:42:00 9.2 8.4-10.2 ( mg/dL) Final Performing Location [place] [facility] [place] [address] [place] [address]
--- OUTSIDE RECORDS SUMMARY | 2024-06-06 15:47 | External Medical Summary ---
Author Name Unknown Address Unknown Organization K01:LABORATORY [facility] [place] - [address] [facility] [address] Laboratory Report Ordering Provider Test Date Status FRANCIS BALDWIN 05/15/2024 10:18:00 Final Observation Date Value Abnormality Reference (Units ) Status Body temperature 05/15/2024 10:18:00 37.0 (C) Final pH of Arterial blood 05/15/2024 10:18:00 7.411 7.350-7.450 (units) Final Carbon dioxide [Partial pressure] in Arterial blood 05/15/2024 10:18:00 37.7 35.0-45.0 (mmHg) Final Oxygen [Partial pressure] in Arterial blood 05/15/2024 10:18:00 236.0 Above high normal 75.0-100.0 (mmHg) Final Base excess, Arterial 05/15/2024 10:18:00 -0.5 -2.0-2.0 (mmol/L) Final Hemoglobin [Mass/volume] in Blood by Oximetry 05/15/2024 10:18:00 8.0 Below low normal 12.0-15.3 (g/dL) Final Oxyhemoglobin, Arterial (FO2HB) 05/15/2024 10:18:00 97.1 94.0-99.0 (% total Hgb) Final Carboxyhemoglobin 05/15/2024 10:18:00 1.5 <=1.5 (% total Hgb) Final Smokers: 0-9.0 % Methemoglobin 05/15/2024 10:18:00 1.2 <=1.5 (% total Hgb) Final Deoxyhemoglobin/Hemog lobin.total in Arterial blood 05/15/2024 10:18:00 0.2 0.0-5.0 (% total Hgb) Final Oxygen content in Arterial blood 05/15/2024 10:18:00 11.5 Below low normal 15.0-24.0 (%vol) Final Oxygen/Total gas setting [Volume Fraction] Ventilator 05/15/2024 10:18:00 Not Provided (%) Final O2 FLOW, ARTERIAL - [facility] 05/15/2024 10:18:00 Not Provided (L/min) Final Bicarbonate, Venous, POC (i-STAT) 05/15/2024 10:18:00 23.5 23.0-31.0 (mmol/L) Final Performing Location LABORATORY C - [address] [facility] [address]
--- OUTSIDE RECORDS SUMMARY | 2024-06-06 15:47 | External Medical Summary | Summary of Care ---
Author Name Unknown Organization [facility] Address [address] [place] [address] Phone [phone] Care Team Providers Care Sr Account Executive Name Role Phone Jasmina Taylor MD Primary Care Provide r Encounter Details Date Type Department Care Team (Late st Contact Info) Description 05/13/2024 Result Scan Unspecified Department <No scans attached> Allergies Active Allergy Reactions Criticality Noted Date [...] mRNA, LNP-s, No Pre serve, 2-Dose Series ([employer]ek[employer]) 08/22/2021,12/14/2020,11/23/2020 COVID-19, LNP-s, No Preserve , Clive-sucrose, Ages 12+ (Pfizer) 02/13/2022 COVID-19, MRNA-LNP, 23-24, P F, 30 MCG/0.3 mL, 12 YRS AND ABOVE, IM ([facility]) 08/23/2023 Covid-19, Mrna, Lnp-s, Pf, B ivalent, 30 Mcg, IM, 12 yrs and above (Teknovus) 07/24/2022 Pneumococcal Conjugate Vacc, 13 Valent (Prevnar) [...] Care Team (Late st Contact Info) Description 05/15/2024 7:00 AM EDT - 05/15/2024 11:49 AM EDT Surgery OR [facility], OPERATING ROOM [facility] [place] [facility] [address] [place] [address] Alfonso Jay MD [address] [place] [address] CORONARY ARTERY BYPASS GRAFT USING ARTERY 1 GRAFT 06/01/2024 8:30 AM EDT Imaging [facility] 2nd Floor Cardiology, [address] [place] [phone] 06/01/2024 10:00 AM EDT Imaging [facility] 2nd Floor [facility], [place] [address] [address] [place] [address] 06/01/2024 11:00 AM EDT Imaging [facility] 2nd Floor Cardiology, [address] [place] [address] 06/01/2024 1:00 PM EDT Imaging [facility] [address] [place] [address] 06/17/2024 9:00 AM EDT Nurse Only Ancillary [address] [place] [address] Gauravey, Nurse Annual [address] [place] [address] 07/02/2024 9:30 AM EDT Office Visit Cardiology [address] [place] [address] Sarah Antoine PA-C [address] [address] 08/25/2024 1:40 PM EST Office Visit Family Medicine [address] [place] [phone] Jasmina Taylor MD [address] [place] [address] [place] [address] 10/05/2024 2:00 PM EST Office Visit Gastroenterology, [facility] [address] [place] [address] Martha Porter CRNP [address] [place] [address] Scheduled Procedures Name Priority Associated Diagnoses Date/Ti me CORONARY ARTERY BYPASS GRAFT USING ARTERY 1 GRAFT Multiple vessel coronary artery disease 05/15/2024 7:00 AM EDT CORONARY ARTERY BYPASS GRAFT ARTERIAL AND VENOUS 2 GRAFTS Multiple vessel coronary artery disease 05/15/2024 7:00 AM EDT ENDOSCOPY VIDEO ASSISTED HARVEST VEIN Multiple vessel coronary artery disease 05/15/2024 7:00 AM EDT COLONOSCOPY FLEXIBLE PROXIMAL DIAGNOSTIC Recall [...] Procedure Name Priority Date/Time Associated Diagnosis Comments CARDIAC CATH SCANNED RESULT 05/13/2024 documented in this encounter Results * CARDIAC CATH SCANNED RESULT (05/13/2024) 05/13/2024 No Physician Data Unknown CARD CATH documented in this encounter Advance Directives * [...] and were consensually agreed upon. Care Teams Sr Account Executive Relationship Specialty Start Date End Date Jasmina Taylor MD [address] [place] [address] [place] [phone] PCP - General Family Medicine 05/07/24 documented as of this encounter
--- OUTSIDE RECORDS SUMMARY | 2024-06-06 15:47 | External Medical Summary ---
Author Name Unknown Address Unknown Organization K01:LABORATORY [facility] [place] - [address] [place] [address] Laboratory Report Ordering Provider Test Date Status PADMINI COLEMAN 05/15/2024 12:29:59 Final Observation Date Value Abnormality Reference (Units ) Status Antithrombin III 05/15/2024 12:29:59 53 Below low nor mal 80-120 (%) Final Performing Location LABORATORY C - [address] [place] [address]
--- OUTSIDE RECORDS SUMMARY | 2024-06-06 15:47 | External Medical Summary ---
Author Name Unknown Address Unknown Organization K01:LABORATORY [place] [address] [address] [facility] [address] Laboratory Report Ordering Provider Test Date Status PATO BALDWINLANDON 05/15/2024 10:18:00 Final If R time > 20 minutes and n o clot formed suggesting hypocoagulable state or interfering substance (anticoagulation). Consider resubmitting a new sample and/or checking PT/INR, aPTT, fibrinogen, and platelet count.
If R time > 20 minutes and no clot formed suggesting hypocoagulable state or interfering substance (anticoagulation). Consider resubmitting a new sample and/or checking PT/INR, aPTT, fibrinogen, and platelet count. Observation Date Value Abnormality Reference (Units) Status Clot formation [Time] in Blood by Thromboelastography 05/15/2024 10:18:00 >20.0 Above high normal 2.5-8.3 (minutes) Final Performing Location [facility]ORY [facility] [place] [address] [facility] [address]
--- OUTSIDE RECORDS SUMMARY | 2024-06-06 15:47 | External Medical Summary ---
Author Name Unknown Address Unknown Organization K01:LABORATORY [facility] [place] [facility] [address] [facility] [address] Laboratory Report Ordering Provider Test Date Status ANDRAE TITUS 05/15/2024 11:25:25 Final Warfarin Therapy
INR: 2 .0-3.0 conventional anticoagulation
INR: 2.5- 3.5 high intensity anticoagulation Observation Date Value Abnormality Reference (Units ) Status PT 05/15/2024 11:25:25 17.8 Above high normal 11 .6-15.2 (seconds) Final INR 05/15/2024 11:25:25 1.5 Above high normal 0. 8-1.2 Final Performing Location LABORATORY [facility] [place] - [address] [facility] [address]
--- OUTSIDE RECORDS SUMMARY | 2024-06-06 15:47 | External Medical Summary ---
Author Name Unknown Address Unknown Organization K01:[place] [facility] [place] [address] [place] [address] Laboratory Report Ordering Provider Test Date Status CHAIM GARCIA 05/15/2024 03:42:00 Final Warfarin Therapy
INR: 2 .0-3.0 conventional anticoagulation
INR: 2.5- 3.5 high intensity anticoagulation Observation Date Value Abnormality Reference (Units ) Status PT 05/15/2024 03:42:00 13.3 11.6-15.2 (seconds) Final INR 05/15/2024 03:42:00 1.0 0.8-1.2 Final Performing Location [place] [facility] [place] [address] [place] [address]
--- OUTSIDE RECORDS SUMMARY | 2024-06-06 15:47 | External Medical Summary ---
Author Name Unknown Address Unknown Organization : Laboratory Report Ordering Provider Test Date Status FRANCIS BALDWIN 05/15/2024 10:08:22 Final NORMAL (NON-HEPARINIZED) 74- 137 SECONDS
HEPARINIZED 200+ SECONDS
CRITICAL GREATER THAN 1000 SECONDS
null Observation Date Value Abnormality Reference (Units ) Status Kaolin activated time [Units/volume] in Blood 05/15/2024 10:08:22 666 50-1000 (secs) Final Performing Location
--- OUTSIDE RECORDS SUMMARY | 2024-06-06 15:47 | External Medical Summary ---
Author Name Unknown Address Unknown Organization : Laboratory Report Ordering Provider Test Date Status ELE BALDWINSOFI 05/15/2024 11:30:48 Final Observation Date Value Abnormality Reference (Units) Status Blood draw [PhenX] 05/15/2024 11:30:48 Arterial Draw Final pH, POC (i-STAT) 05/15/2024 11:30:48 7.334 Below low normal 7.350-7.450 Final PCO2 POC (i-STAT) 05/15/2024 11:30:48 42.7 35.0-45.0 (mm Hg) Final PO2 POC (i-STAT) 05/15/2024 11:30:48 132 Above high normal 75-100 (mm Hg) Final Base excess standard in Arterial blood by calculation 05/15/2024 11:30:48 -3 Below low normal -2-2 (mmol/L) Final Bicarbonate, Venous, POC (i-STAT) 05/15/2024 11:30:48 22.7 Below low normal 23.0-31.0 (mmol/L) Final O2 Sat, calculated POC (i-STAT) 05/15/2024 11:30:48 99.0 Above high normal 94.0-98.0 (%) Final Glucose, whole blood 05/15/2024 11:30:48 124 Above high normal 70-120 (mg/dL) Final Potassium, Whole Blood 05/15/2024 11:30:48 5.3 Above high normal 3.5-5.1 (mmol/L) Final Sodium, Whole Blood 05/15/2024 11:30:48 138 135-146 (mmol/L) Final Calcium, Ionized, Whole Blood 05/15/2024 11:30:48 1.24 1.13-1.32 (mmol/L) Final Hemoglobin POC (i-STAT) 05/15/2024 11:30:48 8.8 Below low normal 12.0-15.3 (g/dL) Final HCT 05/15/2024 11:30:48 26 Below low normal 36-45 (%) Final Performing Location
--- OUTSIDE RECORDS SUMMARY | 2024-06-06 15:47 | External Medical Summary ---
Author Name Unknown Address Unknown Organization K01:[place] [facility] [place] [facility] [address] [place] [address] Laboratory Report Ordering Provider Test Date Status PADMINI COLEMAN 05/15/2024 12:29:59 Final Observation Date Value Abnormality Reference (Units ) Status BUN 05/15/2024 12:29:59 11 6-20 (mg/dL) Final Creatinine 05/15/2024 12:29:59 0.7 0.5-1.0 (mg/dL) Final Glomerular filtration rate/1.73 sq M.predicted [Volume Rate/Area] in Serum, Plasma or Blood by Creatinine-based formula (CKD-EPI) 05/15/2024 12:29:59 87 >=60 (mL/min) Final eGFR is calculated based on the CKD-EPI 2020 equation. Sodium 05/15/2024 12:29:59 138 135-146 (m mol/L) Final Potassium 05/15/2024 12:29:59 4.9 3.5-5.1 (m mol/L) Final Cl 05/15/2024 12:29:59 109 Above high normal 98 -107 (mmol/L) Final CO2 05/15/2024 12:29:59 18 Below low normal 22- 32 (mmol/L) Final Anion gap 05/15/2024 12:29:59 11 7-15 (mmol /L) Final Glucose 05/15/2024 12:29:59 142 Above high normal 70 -120 (mg/dL) Final Calcium 05/15/2024 12:29:59 7.6 Below low normal 8.4 -10.2 (mg/dL) Final Performing Location [place] [facility] [place] [address] [place] [address]
--- OUTSIDE RECORDS SUMMARY | 2024-06-06 15:47 | External Medical Summary ---
Author Name Unknown Address Unknown Organization K01:[place] [facility] [place] [facility] [address] [facility] [address] Laboratory Report Ordering Provider Test Date Status PADMINI COLEMAN 05/15/2024 12:29:59 Final If R time > 20 minutes and n o clot formed suggesting hypocoagulable state or interfering substance (anticoagulation). Consider resubmitting a new sample and/or checking PT/INR, aPTT, fibrinogen, and platelet count. Observation Date Value Abnormality Reference (Units ) Status Clot formation [Time] in Blood by Thromboelastography 05/15/2024 12:29:59 4.8 2.5-8.3 (minutes) Final Clot strength in Blood by Thromboelastography 05/15/2024 12:29:59 1.5 0.5-3.7 (minutes) Final Clot angle in Blood by Thromboelastography 05/15/2024 12:29:59 67.6 46.8-78.4 (degrees) Final Maximum clot firmness [Length] in Blood by Thromboelastography 05/15/2024 12:29:59 64.4 50.6-72.5 (mm) Final Coagulation index in Blood b y Thromboelastography 05/15/2024 12:29:59 1.6 -3.0-3.0 Final Clot Lysis [Length fraction] in Blood by Thromboelastography --30 minutes post maximum clot amplitude 05/15/2024 12:29:59 0.1 0.0-7.5 (%) Final This is an appended report. These results have been appended to a previously preliminary verified report. Performing Location [place] [facility] [place] [address] [facility] [address]
--- OUTSIDE RECORDS SUMMARY | 2024-06-06 15:47 | External Medical Summary ---
Author Name Unknown Address Unknown Organization K01:[place]ORY [facility] [place] [facility] [address] [place] [address] Laboratory Report Ordering Provider Test Date Status FAIZAN JOSEPH 05/14/2024 12:27:00 Final Observation Date Value Abnormality Reference (Units ) Status Heparin, unfractionated level 05/14/2024 12:27:00 0.45 Above high normal <0.10 (IU/mL) Final Unfractionated therapeutic r anges for Anti Xa activity:
For Cardiac/Neurologic treatment: 0.3 to 0.6 IU/mL.
For treatment of DVT or Pulmonary Embolism: 0.3 to 0.7 IU/mL. Performing Location LABORATORY [facility] [place] [address] [place] [address]
--- OUTSIDE RECORDS SUMMARY | 2024-06-06 15:47 | External Medical Summary ---
Author Name Unknown Address Unknown Organization K01:LABORATORY [facility] [place] - [facility] [address] [place] [address] Laboratory Report Ordering Provider Test Date Status FAIZAN JOSEPH 05/14/2024 19:59:00 Final Observation Date Value Abnormality Reference (Units ) Status Heparin, unfractionated level 05/14/2024 19:59:00 0.41 Above high normal <0.10 (IU/mL) Final Unfractionated therapeutic r anges for Anti Xa activity:
For Cardiac/Neurologic treatment: 0.3 to 0.6 IU/mL.
For treatment of DVT or Pulmonary Embolism: 0.3 to 0.7 IU/mL. Performing Location LABORATORY [facility] [place] - [address] [place] [address]
--- OUTSIDE RECORDS SUMMARY | 2024-06-06 15:47 | External Medical Summary ---
Author Name Unknown Address Unknown Organization K01:[place] [facility] [place] [address] [facility] [address] Laboratory Report Ordering Provider Test Date Status FRANCIS BALDWIN 05/15/2024 10:18:00 Final Observation Date Value Abnormality Reference (Units ) Status Body temperature 05/15/2024 10:18:00 37.0 (C) Final pH of Venous blood 05/15/2024 10:18:00 7.378 7.320-7.430 (units) Final Carbon dioxide [Partial pressure] in Venous blood 05/15/2024 10:18:00 42.0 40.0-60.0 (mmHg) Final Oxygen [Partial pressure] in Venous blood 05/15/2024 10:18:00 52.2 Above high normal 25.0-50.0 (mmHg) Final Base excess, Capillary 05/15/2024 10:18:00 -0.4 -2.0-2.0 (mmol/L) Final Hemoglobin [Mass/volume] in Blood by Oximetry 05/15/2024 10:18:00 8.3 Below low normal 12.0-15.3 (g/dL) Final Oxyhemoglobin, Venous (FO2HB) 05/15/2024 10:18:00 84.8 40.0-85.0 (% total Hgb) Final Carboxyhemoglobin 05/15/2024 10:18:00 1.4 <=1.5 (% total Hgb) Final Smokers: 0-9.0 % Methemoglobin 05/15/2024 10:18:00 0.9 <= 1.5 (% total Hgb) Final Deoxyhemoglobin/Hemoglo bin.total in Venous blood 05/15/2024 10:18:00 12.9 (% total Hgb) Final Oxygen content in Venous blood 05/15/2024 10:18:00 10.0 7.0-18.0 (%vol) Final Potassium, Whole Blood 05/15/2024 10:18:00 5.3 Above high normal 3.5-5.1 (mmol/L) Final Sodium, Whole Blood 05/15/2024 10:18:00 138 135-146 (mmol/L) Final Chloride, Whole Blood 05/15/2024 10:18:00 105 98-107 (mmol/L) Final Calcium.ionized [Moles/volume] in Blood by Ion-selective membrane electrode (ISE) 05/15/2024 10:18:00 0.96 Below low normal 1.13-1.32 (mmol/L) Final Anion gap, Whole Blood 05/15/2024 10:18:00 8.6 7.0-15.0 (mmol/L) Final Glucose, whole blood 05/15/2024 10:18:00 110 70-120 (mg/dL) Final Bicarbonate, Venous, POC (i-STAT) 05/15/2024 10:18:00 24.2 23.0-31.0 (mmol/L) Final Performing Location [place] [facility] [place] [facility] [address] [facility] [address]
--- OUTSIDE RECORDS SUMMARY | 2024-06-06 15:47 | External Medical Summary ---
Author Name Unknown Address Unknown Organization K01:LABORATORY [facility] [place] - [address] [facility] [address] Laboratory Report Ordering Provider Test Date Status ANDRAE TITUS 05/15/2024 11:25:25 Final Observation Date Value Abnormality Reference (Units ) Status HCT 05/15/2024 11:25:25 27.1 Below low normal 36. 0-45.2 (%) Final Performing Location LABORATORY [facility] [place] - [address] [facility] [address]
--- OUTSIDE RECORDS SUMMARY | 2024-06-06 15:47 | External Medical Summary ---
Author Name Unknown Address Unknown Organization : Laboratory Report Ordering Provider Test Date Status FRANCIS BALDWIN 05/15/2024 08:20:27 Final NORMAL (NON-HEPARINIZED) 74- 137 SECONDS
HEPARINIZED 200+ SECONDS
CRITICAL GREATER THAN 1000 SECONDS
null Observation Date Value Abnormality Reference (Units ) Status Kaolin activated time [Units/volume] in Blood 05/15/2024 08:20:27 122 50-1000 (secs) Final Performing Location
--- OUTSIDE RECORDS SUMMARY | 2024-06-06 15:47 | External Medical Summary ---
Author Name Unknown Address Unknown Organization K01:LABORATORY C - [address] [place] [address] Laboratory Report Ordering Provider Test Date Status PADMINI COLEMAN 05/15/2024 12:29:59 Final Observation Date Value Abnormality Reference (Units ) Status Fibrinogen 05/15/2024 12:29:59 218 178-467 ( mg/dL) Final Performing Location LABORATORY [facility] - [address] [place] [address]
--- OUTSIDE RECORDS SUMMARY | 2024-06-06 15:47 | External Medical Summary ---
Author Name Unknown Address Unknown Organization K01:LABORATORY [facility] [place] - [address] [place] [address] Laboratory Report Ordering Provider Test Date Status ANDRAE TITUS 05/15/2024 11:25:25 Final Observation Date Value Abnormality Reference (Units ) Status Antithrombin III 05/15/2024 11:25:25 48 Below low nor mal 80-120 (%) Final Performing Location LABORATORY [facility] [place] - [address] [place] [address]
--- OUTSIDE RECORDS SUMMARY | 2024-06-06 15:47 | External Medical Summary ---
Author Name Unknown Address Unknown Organization : Laboratory Report Ordering Provider Test Date Status FRANCIS BALDWIN 05/15/2024 10:08:58 Final Observation Date Value Abnormality Reference (Units) Status Blood draw [PhenX] 05/15/2024 10:08:58 Arterial Draw Final pH, POC (i-STAT) 05/15/2024 10:08:58 7.309 Below low normal 7.350-7.450 Final PCO2 POC (i-STAT) 05/15/2024 10:08:58 42.1 35.0-45.0 (mm Hg) Final PO2 POC (i-STAT) 05/15/2024 10:08:58 295 Above high normal 75-100 (mm Hg) Final Base excess standard in Arterial blood by calculation 05/15/2024 10:08:58 -5 Below low normal -2-2 (mmol/L) Final Bicarbonate, Venous, POC (i-STAT) 05/15/2024 10:08:58 21.1 Below low normal 23.0-31.0 (mmol/L) Final O2 Sat, calculated POC (i-STAT) 05/15/2024 10:08:58 100.0 Above high normal 94.0-98.0 (%) Final Glucose, whole blood 05/15/2024 10:08:58 107 70-120 (mg/dL) Final Potassium, Whole Blood 05/15/2024 10:08:58 4.9 3.5-5.1 (mmol/L) Final Sodium, Whole Blood 05/15/2024 10:08:58 137 135-146 (mmol/L) Final Calcium, Ionized, Whole Blood 05/15/2024 10:08:58 1.00 Below low normal 1.13-1.32 (mmol/L) Final Hemoglobin POC (i-STAT) 05/15/2024 10:08:58 8.8 Below low normal 12.0-15.3 (g/dL) Final HCT 05/15/2024 10:08:58 26 Below low normal 36-45 (%) Final Performing Location
--- OUTSIDE RECORDS SUMMARY | 2024-06-06 15:47 | External Medical Summary ---
Author Name Unknown Address Unknown Organization K01:LABORATORY [facility] [place] - [facility] [address] [place] [address] Laboratory Report Ordering Provider Test Date Status PADMINI COLEMAN 05/15/2024 12:29:59 Final Observation Date Value Abnormality Reference (Units ) Status Heparin, unfractionated level 05/15/2024 12:29:59 <0.10 <0.10 (IU/mL) Final Unfractionated therapeutic r anges for Anti Xa activity:
For Cardiac/Neurologic treatment: 0.3 to 0.6 IU/mL.
For treatment of DVT or Pulmonary Embolism: 0.3 to 0.7 IU/mL. Performing Location LABORATORY [facility] [place] - [address] [place] [address]
--- OUTSIDE RECORDS SUMMARY | 2024-06-06 15:47 | External Medical Summary ---
Author Name Unknown Address Unknown Organization K01:LABORATORY [facility] [place] - [facility] [address] [facility] [address] Laboratory Report Ordering Provider Test Date Status PADMINI COLEMAN 05/15/2024 12:29:59 Final Anticoagulation may affect t esting. Refer to [facility] Test Catalog for a list of effects. Observation Date Value Abnormality Reference (Units ) Status aPTT panel - Platelet poor plasma 05/15/2024 12:29:59 107 Above high normal 21-38 (seconds) Final Performing Location LABORATORY [facility] [place] - [facility] [place] [address] [facility] [address]
--- OUTSIDE RECORDS SUMMARY | 2024-06-06 15:47 | External Medical Summary ---
Author Name Unknown Address Unknown Organization : Laboratory Report Ordering Provider Test Date Status FRANCIS BALDWIN 05/15/2024 09:42:13 Final NORMAL (NON-HEPARINIZED) 74- 137 SECONDS
HEPARINIZED 200+ SECONDS
CRITICAL GREATER THAN 1000 SECONDS
null Observation Date Value Abnormality Reference (Units ) Status Kaolin activated time [Units/volume] in Blood 05/15/2024 09:42:13 568 50-1000 (secs) Final Performing Location
--- OUTSIDE RECORDS SUMMARY | 2024-06-06 15:48 | External Medical Summary ---
Author Name Unknown Address Unknown Organization K01:LABORATORY [facility] [place] - [address] [place] [address] Laboratory Report Ordering Provider Test Date Status CHAIM GARCIA 05/13/2024 16:54:00 Final Observation Date Value Abnormality Reference (Units ) Status Heparin, unfractionated level 05/13/2024 16:54:00 <0.10 <0.10 (IU/mL) Final Unfractionated therapeutic r anges for Anti Xa activity:
For Cardiac/Neurologic treatment: 0.3 to 0.6 IU/mL.
For treatment of DVT or Pulmonary Embolism: 0.3 to 0.7 IU/mL. Performing Location LABORATORY [facility] [place] - [address] [place] [address]
--- OUTSIDE RECORDS SUMMARY | 2024-06-06 15:48 | External Medical Summary ---
Author Name Unknown Address Unknown Organization K01:LABORATORY [facility] [place] - [facility] [address] [facility] [address] Laboratory Report Ordering Provider Test Date Status CHAIM GARCIA 05/13/2024 16:54:00 Final Observation Date Value Abnormality Reference (Units ) Status WBC, Total 05/13/2024 16:54:00 6.41 4.00-10.80 (K/uL) Final RBC 05/13/2024 16:54:00 4.82 3.85-5.15 (M/uL) Final Hemoglobin 05/13/2024 16:54:00 14.5 12.0-15.3 (g/dL) Final HCT 05/13/2024 16:54:00 43.1 36.0-45.2 (%) Final MCV 05/13/2024 16:54:00 89.4 81.5-97.5 (fL) Final MCH 05/13/2024 16:54:00 30.1 27.0-34.0 (pg) Final MCHC 05/13/2024 16:54:00 33.6 32.0-36.0 (g/dL) Final RDW 05/13/2024 16:54:00 13.1 11.5-15.5 (%) Final Platelets 05/13/2024 16:54:00 167 140-400 (K/uL) Final MPV 05/13/2024 16:54:00 10.5 6.6-11.1 (fL) Final Nucleated erythrocytes/100 leukocytes [Ratio] in Blood by Automated count 05/13/2024 16:54:00 0 <=0 (/100 WBCs) Final Performing Location LABORATORY [facility] [place] - [address] [facility] [address]
--- OUTSIDE RECORDS SUMMARY | 2024-06-06 15:48 | External Medical Summary ---
Author Name Unknown Address Unknown Organization K01:[facility]ATORY [facility] [place] [address] [place] [address] Laboratory Report Ordering Provider Test Date Status SUDHA CARDOZA 05/13/2024 18:53:00 Final Observation Date Value Abnormality Reference (Units ) Status Albumin 05/13/2024 18:53:00 4.2 3.8-5.0 (g/dL) Final AST (Aspartate aminotransferase) 05/13/2024 18:53:00 28 10-35 (U/L) Final Result may be falsely elevat ed due to hemolysis. Alk Phos 05/13/2024 18:53:00 64 35-130 (U/ L) Final ALT (Alanine aminotransferase) 05/13/2024 18:53:00 29 10-35 (U/L) Final Bilirubin, Total 05/13/2024 18:53:00 0.8 <=1 .2 (mg/dL) Final Bilirubin, Direct 05/13/2024 18:53:00 <0.2 0. 0-0.3 (mg/dL) Final Protein 05/13/2024 18:53:00 6.9 6.0-8.3 (g /dL) Final Performing Location LAB[facility]ORY [facility] [place] [address] [place] [address]
--- OUTSIDE RECORDS SUMMARY | 2024-06-06 15:48 | External Medical Summary ---
Author Name Unknown Address Unknown Organization K01:[place] [place] [facility] [address] [facility] [address] Laboratory Report Ordering Provider Test Date Status CHAIM GARCIA 05/14/2024 05:50:00 Final Observation Date Value Abnormality Reference (Units ) Status WBC, Total 05/14/2024 05:50:00 6.49 4.00-10.80 (K/uL) Final RBC 05/14/2024 05:50:00 4.65 3.85-5.15 (M/uL) Final Hemoglobin 05/14/2024 05:50:00 13.8 12.0-15.3 (g/dL) Final HCT 05/14/2024 05:50:00 42.2 36.0-45.2 (%) Final MCV 05/14/2024 05:50:00 90.8 81.5-97.5 (fL) Final MCH 05/14/2024 05:50:00 29.7 27.0-34.0 (pg) Final MCHC 05/14/2024 05:50:00 32.7 32.0-36.0 (g/dL) Final RDW 05/14/2024 05:50:00 13.2 11.5-15.5 (%) Final Platelets 05/14/2024 05:50:00 133 Below low normal 140-400 (K/uL) Final MPV 05/14/2024 05:50:00 11.1 6.6-11.1 (fL) Final Nucleated erythrocytes/100 leukocytes [Ratio] in Blood by Automated count 05/14/2024 05:50:00 0 <=0 (/100 WBCs) Final Performing Location [facility] [place] [address] [facility] [address]
--- OUTSIDE RECORDS SUMMARY | 2024-06-06 15:48 | External Medical Summary ---
Author Name Unknown Address Unknown Organization K01:LAB[facility]ATORY [facility] [place] - [address] [facility] [address] Laboratory Report Ordering Provider Test Date Status SUDHA CARDOZA 05/13/2024 21:22:44 Final Observation Date Value Abnormality Reference (Units ) Status Color of Urine by Auto 05/13/2024 21:22:44 Yellow Colorless, Light Yellow, Yellow, Dark Yellow Final Clarity, Urine 05/13/2024 21:22:44 Clear Clear Final Glucose [Mass/volume] in Urine by Automated test strip 05/13/2024 21:22:44 Negative Negative (mg/dL) Final Bilirubin.total [Presence] in Urine by Automated test strip 05/13/2024 21:22:44 Negative Negative Final Ketones [Mass/volume] in Urine by Automated test strip 05/13/2024 21:22:44 15 Abnormal Negative (mg/dL) Final Specific gravity, Urine 05/13/2024 21:22:44 1.035 Above high normal 1.003-1.030 Final Hemoglobin [Presence] in Urine by Automated test strip 05/13/2024 21:22:44 Trace Abnormal Negative Final pH, Urine 05/13/2024 21:22:44 5.5 5.0-7.5 (Units) Final Protein [Mass/volume] in Urine by Automated test strip 05/13/2024 21:22:44 Negative Negative (mg/dL) Final Urobilinogen [Mass/volume] in Urine by Automated test strip 05/13/2024 21:22:44 Normal Normal (mg/dL) Final Nitrite [Presence] in Urine by Automated test strip 05/13/2024 21:22:44 Negative Negative Final Leukocyte esterase [Presence] in Urine by Automated test strip 05/13/2024 21:22:44 Negative Negative Final RBC, Urine 05/13/2024 21:22:44 3-5 Abnormal 0-2 (/HPF) Final WBC, Urine 05/13/2024 21:22:44 3-5 Abnormal 0-2 (/HPF) Final Bacteria [#/area] in Urine sediment by Microscopy high power field 05/13/2024 21:22:44 151-200 Abnormal 0-25 (/HPF) Final Performing Location LABORATORY [facility] [place] - [facility] [address] [facility] [address]
--- OUTSIDE RECORDS SUMMARY | 2024-06-06 15:48 | External Medical Summary ---
Author Name Unknown Address Unknown Organization K01:LABORATORY [facility] [place] - [facility] [address] [place] [address] Laboratory Report Ordering Provider Test Date Status CHAIM GARCIA 05/14/2024 05:50:00 Final Observation Date Value Abnormality Reference (Units ) Status BUN 05/14/2024 05:50:00 18 6-20 (mg/dL) Final Creatinine 05/14/2024 05:50:00 0.9 0.5-1.0 (mg/dL) Final Glomerular filtration rate/1.73 sq M.predicted [Volume Rate/Area] in Serum, Plasma or Blood by Creatinine-based formula (CKD-EPI) 05/14/2024 05:50:00 67 >=60 (mL/min) Final eGFR is calculated based on the CKD-EPI 2020 equation. Sodium 05/14/2024 05:50:00 141 135-146 (m mol/L) Final Potassium 05/14/2024 05:50:00 4.1 3.5-5.1 (m mol/L) Final Cl 05/14/2024 05:50:00 111 Above high normal 98 -107 (mmol/L) Final CO2 05/14/2024 05:50:00 19 Below low normal 22- 32 (mmol/L) Final Anion gap 05/14/2024 05:50:00 11 7-15 (mmol /L) Final Glucose 05/14/2024 05:50:00 101 70-120 (mg /dL) Final Calcium 05/14/2024 05:50:00 9.0 8.4-10.2 ( mg/dL) Final Performing Location LABORATORY [facility] [place] - [address] [place] [address]
--- OUTSIDE RECORDS SUMMARY | 2024-06-06 15:48 | External Medical Summary ---
Author Name Unknown Address Unknown Organization K01:[place] [facility] [place] [address] [facility] [address] Laboratory Report Ordering Provider Test Date Status SUDHA CARDOZA 05/13/2024 14:31:00 Final Observation Date Value Abnormality Reference (Units ) Status Ferritin 05/13/2024 14:31:00 217 Above high normal 13 -150 (ng/mL) Final Postmenopausal women have hi gher ferritin levels than pre-menopausal women. The above reference interval is based on pre-menopausal women. Performing Location LAB[facility]ORY [facility] [place] - [address] [facility] [address]
--- OUTSIDE RECORDS SUMMARY | 2024-06-06 15:48 | External Medical Summary ---
Author Name Unknown Address Unknown Organization K01:LABORATORY [place] [address] [place] [address] Laboratory Report Ordering Provider Test Date Status SUDHA CARDOZA 05/13/2024 16:54:00 Final Observation Date Value Abnormality Reference (Units ) Status Retic, % (auto) 05/13/2024 16:54:00 2.40 Above high normal 0.80-1.90 (%) Final Reticulocytes, Absolute 05/13/2024 16:54:00 115.0 Above high normal 31.3-100.1 (K/uL) Final Reticulocyte fraction, immature 05/13/2024 16:54:00 16.3 2.5-20.6 (%) Final Reticulocyte HGB 05/13/2024 16:54:00 34.6 29.7-37.4 (pg) Final Performing Location LABORATORY [facility] [place] - Formerly named [facility] [address] [facility] [place] [address]
--- OUTSIDE RECORDS SUMMARY | 2024-06-06 15:48 | External Medical Summary ---
Author Name Unknown Address Unknown Organization K01:[facility] [facility] [place] [facility] [place] [facility] [facility] [address] [place] [address] Laboratory Report Ordering Provider Test Date Status SONYSUDHA 05/13/2024 18:53:00 Final Observation Date Value Abnormality Reference (Units ) Status ABO 05/13/2024 18:53:00 A Final RH 05/13/2024 18:53:00 Positive Final RED BLOOD CELL ANTIBODY SCREEN 05/13/2024 18:53:00 Negative Final SPECIMEN EXPIRATION DATE 05/13/2024 18:53:00 05/16/2024 23:59 Final Performing Location [facility] [place] [facility] [place] [facility] [facility] - [address] [place] [address]
--- OUTSIDE RECORDS SUMMARY | 2024-06-06 15:48 | External Medical Summary ---
Author Name Unknown Address Unknown Organization K01:LABORATORY [facility] [place] - [address] [facility] [place] [address] Laboratory Report Ordering Provider Test Date Status ROGELIO MCKEONYOLANDA 05/14/2024 05:50:00 Final Observation Date Value Abnormality Reference (Units ) Status Triglyceride 05/14/2024 05:50:00 86 <=174 ( mg/dL) Final Triglyceride Reference Range s (mg/dL):
<150 Acceptable
150-174 Borderline high
175-499 High
>=500 Very high Cholesterol 05/14/2024 05:50:00 175 <200 (mg /dL) Final Total Cholesterol Reference Ranges (mg/dL):
<200 Desirable
200-239 Borderline high
>=240 High HDL 05/14/2024 05:50:00 60 >49 (mg/dL ) Final HDL Cholesterol Reference Ra nges (mg/dL):
>=60 High (Desirable)
<50 Low (Undesirable) For Females
<40 Low (Undesirable) For Males NON-HDL CHOLESTEROL 05/14/2024 05:50:00 115 <=159 (mg/dL) Final Non-HDL Cholesterol Referenc e Range (mg/dL):
<100 Target level for high risk ASCVD patient
<130 Optimal for general population
130-159 Near optimal for general population
160-189 Borderline High
190-219 High
>=220 Very High LDL, (calculated) 05/14/2024 05:50:00 98 <= 129 (mg/dL) Final LDL Cholesterol Reference Ra nges (mg/dL):
<70 Target level for high risk ASCVD patient
<100 Optimal for general population
100-129 Near optimal for general population
130-159 Borderline high
160-189 High
>=190 Very high Performing Location LABORATORY [facility] [place] - [address] [facility] [address]
--- OUTSIDE RECORDS SUMMARY | 2024-06-06 15:48 | External Medical Summary ---
Author Name Unknown Address Unknown Organization K01:[place]ORY [facility] [place] [address] [place] [address] Laboratory Report Ordering Provider Test Date Status SUDHA CARDOZA 05/13/2024 14:31:00 Final Observation Date Value Abnormality Reference (Units ) Status Iron 05/13/2024 14:31:00 92 33-151 (ug /dL) Final Iron-binding capacity 05/13/2024 14:31:00 305 250-425 (ug/dL) Final Transferrin Sat % 05/13/2024 14:31:00 30 15 -55 (%) Final Performing Location LABORATORY C - [address] [place] [address]
--- OUTSIDE RECORDS SUMMARY | 2024-06-06 15:48 | External Medical Summary ---
Author Name Unknown Address Unknown Organization K01:LABORATORY [facility] [place] - [address] [place] [address] Laboratory Report Ordering Provider Test Date Status SUDHA CARDOZA 05/13/2024 18:53:00 Final Observation Date Value Abnormality Reference (Units ) Status SYNC LEUKOCYTES IN BLOOD BY AUTOMATED COUNT 05/13/2024 18:53:00 6.79 4.00-10.80 (K/uL) Final Segs 05/13/2024 18:53:00 55.3 40.0-75.0 (%) Final Lymphs % 05/13/2024 18:53:00 32.4 18.0-42.0 (%) Final Monos 05/13/2024 18:53:00 10.3 1.0-11.0 (%) Final Eosinophils 05/13/2024 18:53:00 1.5 0.0-6.0 (%) Final Basos 05/13/2024 18:53:00 0.4 0.0-2.0 (%) Final Immature Granulocyte, Percent 05/13/2024 18:53:00 0.1 0.0-2.0 (%) Final Absolute Segs 05/13/2024 18:53:00 3.75 1.80-7.70 (K/uL) Final Lymphs, absolute 05/13/2024 18:53:00 2.20 1.00-4.80 (K/ul) Final Monos, Abs 05/13/2024 18:53:00 0.70 0.00-1.10 (K/uL) Final Eos, Abs 05/13/2024 18:53:00 0.10 0.00-0.70 (K/uL) Final Basos, Abs 05/13/2024 18:53:00 0.03 0.00-0.20 (K/uL) Final Immature Granulocytes, Number 05/13/2024 18:53:00 0.01 0.00-0.20 (K/uL) Final Performing Location LAB[facility]ATORY [facility] [place] - [address] [facility] [address]
--- OUTSIDE RECORDS SUMMARY | 2024-06-06 15:48 | External Medical Summary ---
Author Name Unknown Address Unknown Organization K01:LABORATORY [facility] [place] - [address] [facility] [address] Laboratory Report Ordering Provider Test Date Status SUDHA CARDOZA 05/13/2024 16:54:00 Final Observation Date Value Abnormality Reference (Units ) Status HbA1C 05/13/2024 16:54:00 6.0 Above high normal 4. 0-5.6 (%) Final The use of HbA1c to monitor glycemic status is based on normal hemoglobin and HbA composition. This test should not be used in patients with abnormal hemoglobin that affects the half life of the red blood cell or the in vivo glycation rates. Glucose, estimated average 05/13/2024 16:54:00 126 Above high normal <126 (mg/dL) Obi francis Performing Location LABORATORY [facility] [place] - [address] [facility] [address]
--- OUTSIDE RECORDS SUMMARY | 2024-06-06 15:48 | External Medical Summary ---
Author Name Unknown Address Unknown Organization K01:LABORATORY [facility] [place] - [address] [facility] [address] Laboratory Report Ordering Provider Test Date Status SUDHA CARDOZA 05/13/2024 18:53:00 Final Observation Date Value Abnormality Reference (Units ) Status TSH 05/13/2024 18:53:00 2.13 0.27-4.20 (uIU/mL) Final Performing Location LABOR[facility]ORY [facility] [place] - [address] [facility] [address]
--- OUTSIDE RECORDS SUMMARY | 2024-06-06 15:48 | External Medical Summary ---
Author Name Unknown Address Unknown Organization K01:LABORATORY [facility] [place] - [address] [place] [address] Laboratory Report Ordering Provider Test Date Status CHAIM GARCIA 05/13/2024 16:54:00 Final Warfarin Therapy
INR: 2 .0-3.0 conventional anticoagulation
INR: 2.5- 3.5 high intensity anticoagulation Observation Date Value Abnormality Reference (Units ) Status PT 05/13/2024 16:54:00 13.1 11.6-15.2 (seconds) Final INR 05/13/2024 16:54:00 1.0 0.8-1.2 Final Performing Location LABORATORY [facility] [place] - [address] [place] [address]
--- OUTSIDE RECORDS SUMMARY | 2024-06-06 15:48 | External Medical Summary ---
Author Name Unknown Address Unknown Organization K01:[place]ORY [facility] [place] [address] [facility] [address] Laboratory Report Ordering Provider Test Date Status SUDHA CARDOZA 05/13/2024 20:05:18 Final Observation Date Value Abnormality Reference (Units ) Status Staphylococcus aureus methicillin resistance SCCmec [Presence] in Nose by BENEDICTO with probe detection 05/13/2024 20:05:18 Negative Negative Final No Methicillin resistant Sta phylococcus aureus detected by PCR (amplified probe). Methicillin susceptible Stap hylococcus aureus DNA [Presence] in Specimen by BENEDICTO with probe detection 05/13/2024 20:05:18 Negative Negative Final No Staphylococcus aureus det ected by PCR (amplified probe). Performing Location LABOR[facility]ORY [facility] [place] - [address] [facility] [address]
--- OUTSIDE RECORDS SUMMARY | 2024-06-06 15:48 | External Medical Summary ---
Author Name Unknown Address Unknown Organization K01:[place] [facility] [place] [facility] [address] [facility] [address] Laboratory Report Ordering Provider Test Date Status CHAIM GARCIA 05/13/2024 16:54:00 Final Anticoagulation may affect t esting. Refer to [facility] Test Catalog for a list of effects. Observation Date Value Abnormality Reference (Units ) Status aPTT panel - Platelet poor plasma 05/13/2024 16:54:00 30 21-38 (seconds) Final Performing Location LABORATORY [facility] [place] [address] [place] [address]
--- OUTSIDE RECORDS SUMMARY | 2024-06-06 15:48 | External Medical Summary ---
Author Name Unknown Address Unknown Organization K01:[place] [facility] [place] [address] [facility] [address] Laboratory Report Ordering Provider Test Date Status SUDHA CARDOZA 05/13/2024 19:06:40 Final pre-op blood gas on room air Observation Date Value Abnormality Reference (Units ) Status Body temperature 05/13/2024 19:06:40 37.0 (C) Final pH of Arterial blood 05/13/2024 19:06:40 7.411 7.350-7.450 (units) Final Carbon dioxide [Partial pressure] in Arterial blood 05/13/2024 19:06:40 31.9 Below low normal 35.0-45.0 (mmHg) Final Oxygen [Partial pressure] in Arterial blood 05/13/2024 19:06:40 81.8 75.0-100.0 (mmHg) Final Base excess, Arterial 05/13/2024 19:06:40 -3.3 Below low normal -2.0-2.0 (mmol/L) Final Hemoglobin [Mass/volume] in Blood by Oximetry 05/13/2024 19:06:40 13.9 12.0-15.3 (g/dL) Final Oxyhemoglobin, Arterial (FO2HB) 05/13/2024 19:06:40 95.1 94.0-99.0 (% total Hgb) Final Carboxyhemoglobin 05/13/2024 19:06:40 1.3 <=1.5 (% total Hgb) Final Smokers: 0-9.0 % Methemoglobin 05/13/2024 19:06:40 0.6 <=1.5 (% total Hgb) Final Deoxyhemoglobin/Hemoglobin.t ot al in Arterial blood 05/13/2024 19:06:40 3.0 0.0-5.0 (% to gena Hgb) Final Oxygen content in Arterial blood 05/13/2024 19:06:40 18.6 15.0-24.0 (%vol) Faby l Oxygen/Total gas setting [Volume Fraction] Ventilator 05/13/2024 19:06:40 0.21 (%) Final room air O2 FLOW, [facility] - [facility] 05/13/2024 19:06:40 Not Provided (L/min) Final Bicarbonate, Venous, POC (i-STAT) 05/13/2024 19:06:40 19.8 Below low normal 23.0-31.0 (mmol/L) Final Performing Location [facility] [facility] [place] [address] [facility] [address]
--- OUTSIDE RECORDS SUMMARY | 2024-06-06 15:48 | External Medical Summary ---
Author Name Unknown Address Unknown Organization : Laboratory Report Ordering Provider Test Date Status SUDHA CARDOZA 05/13/2024 18:54:00 Final Observation Date Value Abnormality Reference (Units ) Status Performing Location
--- OUTSIDE RECORDS SUMMARY | 2024-06-06 15:48 | External Medical Summary ---
Author Name Unknown Address Unknown Organization K01:LABORATORY [facility] [place] [facility] - [address] [place] [address] Laboratory Report Ordering Provider Test Date Status SUDHA CARDOZA 05/13/2024 18:53:00 Final Observation Date Value Abnormality Reference (Units ) Status ABO 05/13/2024 18:53:00 A Final RH 05/13/2024 18:53:00 Positive Final Performing Location LABORATORY [facility] [place] [facility] - [address] [place] [address]
--- OUTSIDE RECORDS SUMMARY | 2024-06-06 15:48 | External Medical Summary ---
Author Name Unknown Address Unknown Organization K01:[place] [facility] [place] [facility] [address] [place] [address] Laboratory Report Ordering Provider Test Date Status TIFF STONE 05/13/2024 23:36:00 Final Observation Date Value Abnormality Reference (Units ) Status Heparin, unfractionated level 05/13/2024 23:36:00 0.27 Above high normal <0.10 (IU/mL) Final Unfractionated therapeutic r anges for Anti Xa activity:
For Cardiac/Neurologic treatment: 0.3 to 0.6 IU/mL.
For treatment of DVT or Pulmonary Embolism: 0.3 to 0.7 IU/mL. Performing Location [place] [facility] [place] [address] [place] [address]
--- OUTSIDE RECORDS SUMMARY | 2024-06-06 15:48 | External Medical Summary ---
Author Name Unknown Address Unknown Organization K01:LABORATORY [facility] [place] - [facility] [address] [place] [address] Laboratory Report Ordering Provider Test Date Status LIZZETH MCKEON 05/13/2024 14:31:00 Final Observation Date Value Abnormality Reference (Units ) Status BUN 05/13/2024 14:31:00 18 6-20 (mg/dL) Final Creatinine 05/13/2024 14:31:00 1.0 0.5-1.0 (mg/dL) Final Glomerular filtration rate/1.73 sq M.predicted [Volume Rate/Area] in Serum, Plasma or Blood by Creatinine-based formula (CKD-EPI) 05/13/2024 14:31:00 59 Below low normal >=60 (mL/min) Final eGFR is calculated based on the CKD-EPI 2020 equation. Sodium 05/13/2024 14:31:00 140 135-146 (m mol/L) Final Potassium 05/13/2024 14:31:00 4.0 3.5-5.1 (m mol/L) Final Cl 05/13/2024 14:31:00 111 Above high normal 98 -107 (mmol/L) Final CO2 05/13/2024 14:31:00 18 Below low normal 22- 32 (mmol/L) Final Anion gap 05/13/2024 14:31:00 11 7-15 (mmol /L) Final Glucose 05/13/2024 14:31:00 112 70-120 (mg /dL) Final Calcium 05/13/2024 14:31:00 8.8 8.4-10.2 ( mg/dL) Final Performing Location LABORATORY [facility] [place] - [address] [place] [address]
--- NOTE | 2024-06-06 16:46 | Emergency Department Note ---
History of Present Illness General Chief Complaint: Cardiac Assessment Stated Complaint: CARDIAC SURGERY 3 WKS AGO, WEAKNESS, SHAKES, CHEST Time Seen by Provider: 06/06/24 16:03 History of Present Illness Provider Complaint: chest pain Time: 08:00 Duration: improved and now resolved Onset: during rest Pain Location: left chest Pain Radiation: none Severity: moderate Maximum Pain Intensity: 5 Current Pain Intensity: 0 Quality: no tightness, no aching, no heaviness, no sharp or no dull Relieved By: + nothing Exacerbated By: + nothing Context: + recent surgery (Patient reports she had three-vessel CABG done 3 weeks ago at [place]); no recent illness, no recent travel, no trauma/injury or no history of DVT/PE Associated symptoms: + dyspnea; no nausea, no vomiting, no diaphoresis, no syncope, no palpitations, no fever, no cough or no leg swelling Home Medications Medication Instructions Recorded Confirmed Type coenzyme Q10 200 mg capsule (Co 200 mg PO QAM 02/12/19 06/06/24 History Q-10) aspirin 81 mg tablet,delayed 81 mg PO DAILY 08/17/20 06/06/24 History release (Ousmane Low Dose Aspirin) pantoprazole 40 mg tablet,delayed 40 mg PO DAILYBB 08/28/22 06/06/24 History release mirtazapine 15 mg tablet 7.5 mg PO HS 03/04/24 06/06/24 History multivitamin 1 tab PO QAM 03/04/24 06/06/24 History pravastatin 40 mg tablet 40 mg PO HS 03/04/24 06/06/24 History amiodarone 200 mg tablet 200 mg PO DAILY 06/06/24 06/06/24 History atenolol 25 mg tablet 25 mg PO DAILY 06/06/24 06/06/24 History furosemide 40 mg tablet 40 mg PO DAILY 06/06/24 06/06/24 History levalbuterol tartrate 45 1 inh inhalation UD 06/06/24 06/06/24 History mcg/actuation aerosol inhaler tramadol 50 mg tablet 25 mg PO Q6H PRN Moderate Pain 06/06/24 06/06/24 History (Scale Score 5-6) Allergies Allergy/AdvReac Type Severity Reaction Status Date / Time Sulfa (Sulfonamide Allergy Intermediate Hives Verified 05/13/24 07:35 Antibiotics) codeine AdvReac Intermediate "deathly Verified 05/13/24 07:35 sick and I throw up" levofloxacin [From Levaquin] AdvReac Mild Nausea Verified 05/13/24 07:35 Past Med/Surg History Problem List (Updated 06/06/24 @ 18:33 by Rehan Molina MD) Pulmonary embolism (Acute) Pulmonary embolism Abnormal nuclear stress test Family history of coronary artery disease (Acute) Chest pain (Acute) Chest pain Acute lower GI bleeding Rectal bleed (Acute) Bronchitis (Acute) Rectal bleeding Gastroenteritis (Acute) History of diverticulitis (Chronic) Encounter for pre-operative examination Diarrhea (Acute) Nausea and vomiting (Acute) Anterior T wave inversion (Acute) Acute electrocardiogram changes (Acute) Abdominal pain, epigastric (Acute) Discharge planning issues Encounter for pre-operative examination GERD (gastroesophageal reflux disease) (Chronic) Osteoarthritis (Chronic) Medical History CAD (coronary artery disease), [place] coronary artery Hypertensive emergency Asthma RARELY USES PRN INH HTN (hypertension) History of basal cell carcinoma Diverticular disease Valvular heart disease "LEAKY VALVE" - FOLLOWS W/ DR. DE SANTIAGO Hypertension Hyperlipidemia Surgical History S/P CABG (coronary artery bypass graft) History of cataract surgery LEFT History of basal cell carcinoma (BCC) excision History of hysterectomy History of esophagogastroduodenoscopy (EGD) History of colonoscopy Family History Sister Diabetes Brother Diabetes Other Heart disease Hypertension Social History Smoking Status: Never smoker Second Hand Exposure: No; Do You Dip or Chew Tobacco: No; Hx Alcohol Use: No Hx Substance Use: No Preferred Language: [place] Communication Ability: Effective Visual Impairment: Limited Hearing Ability: Normal 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 Beliefs That Will Affect Care: Spiritual marital status: Current Living Situation: Spouse Feels Safe at Home: Yes Assistive Devices: Cane and Walker Physical Exam Vital Signs Vital Signs - 24 hr 06/06/24 15:40 06/06/24 15:53 06/06/24 15:53 Temperature 36.2 C L Temperature Source Temporal Artery Scan Pulse Rate 76 84 Pulse Rate [Apical] 81 Pulse Strength [Apical] Normal Respiratory Rate 20 18 Respiratory Effort / Characteristics Spontaneous Short of Breath Non-Labored Spontaneous Respiratory Depth Normal Normal Respiratory Pattern Regular Regular Blood Pressure 155/97 H Blood Pressure [Left Arm] 145/87 H Blood Pressure Mean 116 Blood Pressure Mean [Left Arm] 106 Blood Pressure Position [Left Arm] Sitting Pulse Oximetry 94 100 Oxygen Delivery Method Room Air Room Air Sepsis Recent Fever Within 48 Hours No Sepsis New/Unexplained Change in Mental Status N/A Sepsis Action Taken by Nursing No Action Required 06/06/24 16:02 06/06/24 16:31 06/06/24 17:50 Temperature Temperature Source Pulse Rate 80 Pulse Rate [Apical] 79 Pulse Strength [Apical] Normal Respiratory Rate 16 18 Respiratory Effort / Characteristics Non-Labored Spontaneous Respiratory Depth Normal Respiratory Pattern Regular Blood Pressure Blood Pressure [Left Arm] 157/108 H Blood Pressure Mean Blood Pressure Mean [Left Arm] 124 Blood Pressure Position [Left Arm] Pulse Oximetry 99 98 96 Oxygen Delivery Method Room Air Room Air Room Air Sepsis Recent Fever Within 48 Hours Sepsis New/Unexplained Change in Mental Status Sepsis Action Taken by Nursing Physical Exam GENERAL: oriented to person, place, and time. appears well-developed and well- nourished. HENT: Exam performed. - Head: Normocephalic and atraumatic. EYES: Conjunctivae and EOM are normal. Right eye exhibits no discharge. Left eye exhibits no discharge. No scleral icterus. NECK: Normal range of motion. Neck supple. No JVD present. CV: Normal rate, regular rhythm, normal heart sounds and intact distal pulses. There is no peripheral edema. Palpable radial pulses bue. PULM/CHEST: Effort normal and breath sounds normal. No respiratory distress. No stridor. no wheezes. no rales. ABD: The abdomen is soft. There is no tenderness. NEURO: Motor and sensation grossly intact. SKIN: Skin is warm and dry. He is not diaphoretic. CABG scar is clean and dry with no surrounding erythema or discharge. PSYCH: normal mood and affect. Behavior is normal. Judgment and thought content normal. Course Course 1603: The patient was evaluated in room C380. A complete history and physical exam was performed Cardiac monitoring: An order was placed for continuous cardiac monitoring. The monitor shows a rate of 80 with sinus rhythm interpreted by me 1725: Vital signs stable. Labs are unremarkable. CT of the chest shows bilateral PEs. [facility] be [facility]. Administered Medications Heparin Sodium/Dextrose (Heparin Sodium/Dextrose) 25,000 units in 500 mls @ 24 mls/hr IV .[id number] [facility]; Protocol Stop: 07/06/24 17:44 Last Admin: 06/06/24 18:04 Dose: 1,200 units/hr, 24 mls/hr Documented By: CHELSEA Co-signed By: AMBER Discontinued Medications Heparin Sodium (Porcine) (Heparin Sod (Porcine) 1000 Unit/Ml) 5,000 units IV NOW ONE Stop: 06/06/24 18:01 Last Admin: 06/06/24 18:04 Dose: 5,000 units Documented By: CHELSEA Co-signed By: AMBER Ioversol (Optiray 320 125ml) 120 ml IV ONCE ONE Stop: 06/06/24 17:02 Last Admin: 06/06/24 17:02 Dose: 120 ml Documented By: JOSE Medical Decision Making Laboratory Data Attestation: I reviewed the patient's lab results. 06/06/24 16:45 06/06/24 16:45 Labs: Lab Results 06/06/24 06/06/24 Range/Units 16:45 16:53 WBC 6.49 (4.8-10.8) K/ul RBC 3.95 L (4.20-5.40) M/uL Hgb 11.4 L (12.0-16.0) g/dl POC Hgb 11.6 L (12.0-16.0) g/dl Hct 35.7 L (37.0-47.0) % POC Hct 34 L (37-47) % MCV 90.4 (80.0-100.0) fL MCH 28.9 (25.0-34.0) pg MCHC 31.9 L (32.0-36.0) g/dL RDW Std Deviation 46.6 H (36.4-46.3) fL RDW Coeff of [place] 14.1 (11.5-14.5) % Plt Count 275 (130-400) K/uL MPV 9.5 (9.4-12.4) fL Immature Gran % (Auto) 0.3 % Neut % (Auto) 63.5 % Lymph % (Auto) 21.7 % [place] % (Auto) 9.4 % Eos % (Auto) 4.3 % Baso % (Auto) 0.8 % Neut # (Auto) 4.12 (1.40-6.50) K/uL Lymph # (Auto) 1.41 (1.20-3.40) K/uL [place] # (Auto) 0.61 H (0.11-0.59) K/uL Eos # (Auto) 0.28 (0.00-0.50) K/uL Baso # (Auto) 0.05 (0.00-0.20) K/uL Immature Gran # (Auto) 0.02 (0.01-0.20) K/uL PT 11.1 (9.0-12.0) Seconds INR 1.0 (0.9-1.1) APTT 25 (21-31) Seconds PTT Ratio 0.9 POC Sodium 140 (135-144) mmol/L Sodium 139 (136-145) mmol/L POC Potassium 3.9 (3.3-5.0) mmol/L Potassium 4.1 (3.5-5.1) mmol/L POC Chloride 104 (101-112) mmol/L Chloride 104 (98-107) mmol/L Carbon Dioxide 24 (21-32) mmol/L POC Total CO2 24 (24-31) mmol/L Anion Gap 11 (3-11) POC Anion Gap 17.0 (16-25) mmol/L POC BUN 13 (7-18) mg/dl BUN 15 (6-23) mg/dl Creatinine 1.00 (0.6-1.2) mg/dl POC Creatinine 1.0 (0.6-1.3) mg/dl Est Cr Clr Drug Dosing 53.8 ml/min Est GFR ( Amer) 65.2 ml/min Est GFR (Non-Af Amer) 56.2 ml/min BUN/Creatinine Ratio 15.0 (10-20) Glucose 104 H (70-99(Fasting)) mg/dl POC Glucose (other) 104 H (70-99) mg/dl Calcium 9.6 (8.6-10.3) mg/dl POC Ioniz Calcium [place] 1.13 (1.12-1.32) mmol/l Troponin I High Sens 9.7 (0-14) pg/ml Lipase 48 (11-82) U/L Imaging Data Chest x-ray: Attestation: I personally reviewed and interpreted this imaging study as follows: My impression: Chest x-ray negative. Airway clear. No pneumothorax. No consolidation. No cardiomegaly or cephalization.. No free air under the diaphragm. No fractures of the skeletal structures. Radiologist's impression: Chest CTA 06/06/24 16:04 CT ANGIOGRAM OF THE CHEST CLINICAL HISTORY: Chest pain. COMPARISON STUDY: Chest x-ray dated 06/06/2024. TECHNIQUE: Following the IV administration of 120 cc of Optiray 320, CT angiogram of the chest was performed from the upper abdomen to the thoracic inlet utilizing the pulmonary embolus protocol. Images are reviewed in the axial, sagittal, and coronal planes. 3-D MIPS images are created and assessed. IV contrast was administered without complication. A dose lowering technique was utilized adhering to the principles of ALARA. The examination is degraded by motion artifact. CT DOSE: 780.56 mGy.cm FINDINGS: Thyroid: Imaged portions of the thyroid gland are normal in size and attenuation. Thoracic aorta: There is atherosclerotic calcification of the thoracic aorta, which is normal in caliber and demonstrates standard 3-vessel arch anatomy. No dissection is seen. Pulmonary vasculature: The pulmonary trunk is normal in caliber. There are segmental and subsegmental pulmonary emboli within branches of the right lower lobe pulmonary artery. There may also be a small peripheral pulmonary embolus within a branch of the right middle lobe pulmonary artery. This is suboptimally assessed due to motion artifact. Segmental and subsegmental pulmonary emboli are seen within branches of the left upper lobe pulmonary artery. Heart: The patient is status post midline sternotomy. The heart is enlarged noting trace pericardial effusion. The coronary arteries are densely calcified. Lungs and pleural spaces: Evaluation of the lung parenchyma is degraded by motion artifact. There is no airspace consolidation typical for pneumonia or pleural effusion. The trachea and central airways appear clear. Foci of subsegmental atelectasis are noted at both lung bases. Mediastinum: There is no mediastinal lymphadenopathy. [place]: Clear. Axillae: There is no axillary lymphadenopathy. Upper abdomen: Partially visualized upper abdominal viscera is within normal limits. Skeletal structures: The skeletal structures are osteopenic. Degenerative change is noted in the thoracic spine. No lytic or blastic bony lesions are seen. IMPRESSION: 1. Bilateral segmental and subsegmental pulmonary emboli as detailed above. 2. Cardiomegaly. 3. No airspace consolidation or pleural effusion is identified. 4. Additional findings as above. ACT 112: Negative or not required by law. Electronically signed by: Roberto Ryan M.D. 06/06/2024 5:14 PM Chest X-Ray 06/06/24 16:04 SINGLE VIEW CHEST CLINICAL HISTORY: Atypical chest pain FINDINGS: An AP, portable, upright chest radiograph is compared to study dated 05/11/2024. The patient is status post midline sternotomy. The heart is enlarged. Atherosclerotic calcification of the thoracic aorta. The pulmonary vasculature is noncongested. Chronic interstitial thickening is similar to previous. There are low lung volumes with bibasilar scarring/atelectasis. No airspace consolidation or pleural effusion is identified. No pneumothorax is seen. The skeletal structures are osteopenic. The bony thorax is grossly intact. IMPRESSION: Cardiomegaly with no acute cardiopulmonary abnormality. ACT 112: Negative or not required by law. Electronically signed by: Roberto Ryan M.D. 06/06/2024 5:08 PM ECG Data Attestation: I personally reviewed and interpreted this ECG as follows: Indication: chest pain Rate (beats per minute): 81 Rhythm: normal sinus Findings: no ST depression, no ST elevation or no prolonged QT Additional Comments: [facility] Narrative 1603: The patient was evaluated in room C380. A complete history and physical exam was performed Cardiac monitoring: An order was placed for continuous cardiac monitoring. The monitor shows a rate of 80 with sinus rhythm interpreted by me 1725: Vital signs stable. Labs are unremarkable. CT of the chest shows bilateral PEs. Patient be started on heparin admitted to the [facility] team. Impression & Plan Pulmonary embolism Critical Care Time Critical Care Time: Yes Total Critical Care Time: 46 I have personally spent greater than 46 minutes of critical care time in the direct management of this patient. This includes bedside care, interpretation of diagnostic studies, and testing, discussion with consultants, patient, and family members, and other required patient management activities. This 46 minutes is in excess of all separately billable procedures. Discharge Plan Visit Data Chief Complaint: Cardiac Assessment Stated Complaint: CARDIAC SURGERY 3 WKS AGO, WEAKNESS, SHAKES, CHEST ED Provider: Rehan Molina Discharge Problem: Pulmonary embolism Patient Disposition: Admitted As Inpatient Discharge Instructions Interventions: ED Discharge Assessment Last Done: 06/06/24 18:25 Forms Stand Alone Forms: My [facility] Prescriptions Prescriptions: No Action coenzyme Q10 [Co Q-10] 200 mg Capsule 200 mg PO QAM aspirin [Ousmane Low Dose Aspirin] 81 mg Tablet,Delayed Release (Dr/Ec) 81 mg PO DAILY pantoprazole 40 mg tablet,delayed release (DR/EC) 40 mg PO DAILYBB multivitamin Tablet 1 tab PO QAM pravastatin 40 mg tablet 40 mg PO HS mirtazapine 15 mg tablet 7.5 mg PO HS furosemide 40 mg tablet 40 mg PO DAILY amiodarone 200 mg tablet 200 mg PO DAILY Rx Instructions: Started 05/20/24, only to take for 30 days atenolol 25 mg tablet 25 mg PO DAILY tramadol 50 mg tablet 25 mg PO Q6H PRN (Reason: Moderate Pain (Scale Score 5-6)) levalbuterol tartrate 45 mcg/actuation HFA aerosol inhaler 1 inh INHALATION UD Referrals Referrals: Jasmina Taylor MD [Primary Care Provider] - Discharge Problem: Pulmonary embolism Qualifiers: Pulmonary embolism type: unspecified Chronicity: acute Acute cor pulmonale presence: unspecified Qualified Code(s): I26.99 - Other pulmonary embolism without acute cor pulmonale
[2024-06-06] MEDS: OPTIRAY 320 125ml IV ONE (17:02)
[2024-06-06 17:05] LABS: iSTAT Hemoglobin 11.6 g/dl (12.0-16.0); iSTAT Ionized Calcium 1.13 mmol/l (1.12-1.32); iSTAT Potassium 3.9 mmol/L (3.3-5.0)
--- NOTE | 2024-06-06 17:09 | XRay Report ---
SINGLE VIEW CHEST CLINICAL HISTORY: Atypical chest pain FINDINGS: An AP, portable, upright chest radiograph is compared to study dated 05/11/2024. The patient is status post midline sternotomy. The heart is enlarged. Atherosclerotic calcification of the thora cic aorta. The pulmonary vasculature is noncongested. Chronic interstitial thickening is similar to p revious. There are low lung volumes with bibasilar scarring/atelectasis. No airspace consolidation or pleural effusion is identified. No pneumothorax is seen. The skeletal structures are osteopenic. The bony thorax is grossly intact. IMPRESSION: Cardiomegaly with no acute cardiopulmonary abnormality. ACT 112: Negative or not required by law. Electronically signed by: Roberto Ryan M.D. 06/06/2024 5:08 PM
[2024-06-06 17:12] LABS: Basophils # (auto) 0.05 K/uL (0.00-0.20); Basophils % (auto) 0.8 %; Eosinophils # (auto) 0.28 K/uL (0.00-0.50); Eosinophils % (auto) 4.3 %; Hematocrit (blood only) 35.7 % (37.0-47.0); Hemoglobin 11.4 g/dl (12.0-16.0); Immature Granulocytes # (auto) 0.02 K/uL (0.01-0.20); Immature Granulocytes % (auto) 0.3 %; Lymphocytes # (auto) 1.41 K/uL (1.20-3.40); Lymphocytes % (auto) 21.7 %; Mean Corpuscular Hemoglobin 28.9 pg (25.0-34.0); Mean Corpuscular Hgb Conc 31.9 g/dL (32.0-36.0); Mean Corpuscular Volume 90.4 fL (80.0-100.0); Mean Platelet Volume 9.5 fL (9.4-12.4); Monocytes # (auto) 0.61 K/uL (0.11-0.59); Monocytes % (auto) 9.4 %; Neutrophils # (auto) 4.12 K/uL (1.40-6.50); Neutrophils % (auto) 63.5 %; Platelet Count 275 K/uL (130-400); RDW Coefficient of Variation 14.1 % (11.5-14.5); RDW Standard Deviation 46.6 fL (36.4-46.3); Red Blood Count 3.95 M/uL (4.20-5.40); White Blood Count 6.49 K/ul (4.8-10.8)
--- NOTE | 2024-06-06 17:16 | CT Scan Report ---
CT ANGIOGRAM OF THE CHEST CLINICAL HISTORY: Chest pain. COMPARISON STUDY: Chest x-ray dated 06/06/2024. TECHNIQUE: Following the IV administration of 120 cc of Optiray 320, CT angiogram of the chest was pe rformed from the upper abdomen to the thoracic inlet utilizing the pulmonary embolus protocol. Images are reviewed in the axial, sagittal, and coronal planes. 3-D MIPS images are created and assessed. I V contrast was administered without complication. A dose lowering technique was utilized adhering to the principles of ALARA. The examination is degraded by motion artifact. CT DOSE: 780.56 mGy.cm FINDINGS: Thyroid: Imaged portions of the thyroid gland are normal in size and attenuation. Thoracic aorta: There is atherosclerotic calcification of the thoracic aorta, which is normal in [place] and demonstrates standard 3-vessel arch anatomy. No dissection is seen. Pulmonary vasculature: The pulmonary trunk is normal in caliber. There are segmental and subsegmental pulmonary emboli within branches of the right lower lobe pulmonary artery. There may also be a small peripheral pulmonary embolus within a branch of the right middle lobe pulmonary artery. This is subo ptimally assessed due to motion artifact. Segmental and subsegmental pulmonary emboli are seen within branches of the left upper lobe pulmonary artery. Heart: The patient is status post midline sternotomy. The heart is enlarged noting trace pericardial effusion. The coronary arteries are densely calcified. Lungs and pleural spaces: Evaluation of the lung parenchyma is degraded by motion artifact. There is no airspace consolidation typical for pneumonia or pleural effusion. The trachea and central airways appear clear. Foci of subsegmental atelectasis are noted at both lung bases. Mediastinum: There is no mediastinal lymphadenopathy. [place]: Clear. Axillae: There is no axillary lymphadenopathy. Upper abdomen: Partially visualized upper abdominal viscera is within normal limits. Skeletal structures: The skeletal structures are osteopenic. Degenerative change is noted in the thor acic spine. No lytic or blastic bony lesions are seen. IMPRESSION: 1. Bilateral segmental and subsegmental pulmonary emboli as detailed above. 2. Cardiomegaly. 3. No airspace consolidation or pleural effusion is identified. 4. Additional findings as above. ACT 112: Negative or not required by law. Electronically signed by: Roberto Ryan M.D. 06/06/2024 5:14 PM
[2024-06-06] MEDS ORDERED: Heparin IV Adult Wt-Based Low-Dose w/ INITIAL Bolus Protocol IV STA (17:21)
[2024-06-06] MEDS ORDERED: Heparin IV Adult Wt-Based Standard w/ INITIAL Bolus Protocol IV STA (17:25)
[2024-06-06 17:27] LABS: Calcium 9.6 mg/dl (8.6-10.3); Creatinine Clr Calc Pharmacy 53.8 ml/min; Est GFR (African American) 65.2 ml/min; Est GFR (Non-African American) 56.2 ml/min; Potassium 4.1 mmol/L (3.5-5.1)
[2024-06-06 17:34] LABS: Troponin I High Sensitivity 9.7 pg/ml (0-14)
[2024-06-06] MEDS ORDERED: HEPARIN SOD (PORCINE) 1000 UNIT/ML IV ONE ×2 (17:39→17:40)
[2024-06-06 17:41] LABS: Partial Thromboplastin Ratio 0.9; Partial Thromboplastin Time 25 Seconds (21-31); Prothrombin Time 11.1 Seconds (9.0-12.0)
[2024-06-06] MEDS ORDERED: HEPARIN SODIUM/DEXTROSE 25,000 UNITS/500 ML BAG IV SCH (17:45)
[2024-06-06 17:50] VITALS: RESP 18
--- NOTE | 2024-06-06 17:57 | History & Physical Report ---
Date of Service June 06, 2024 Assessment & Plan (1) Chest pain: (2) Pulmonary embolism: (3) S/P CABG (coronary artery bypass graft): (4) Hypertension: (5) Hyperlipidemia: Plan This is a 73 yr old F who has a significant PMH of CAD, HTN, HLD, pulmonary HTN, osteoarthritis, hx of cdiff, hx of insomnia, post operative afib who presents to ED 2/2 chest pain since 8 a.m. S/P CABG x 3 at [facility] [place] On 05/15/24. Complicated with post operative afib and delirium both have since resolved. She is on amiodarone and lasix x 1 month. Recently started on course of doxycycline for 10 days due to OP CXR showing atelectasis vs PNA in setting of dry cough. She has 2 more days of this. Started with increased chest pain/heaviness today at 8 a.m. CTA Chest: Bilateral segmental and subsegmental pulmonary emboli as detailed above. Chest Pain Bilateral segmental and subsegmental pulmonary emboli S/P CABG x3 on 05/15/24 admit to PCU continue Heparin gtt, will need transitioned to DOAC at discharge obtain echocardiogram, cycle trops consult cardiology in setting of recent CABG continue doxycycline to complete course for 2 more days, incentive spirometry follow hgb Post op atrial fib currently in NSR continue amiodarone, started 05/20 for 30 days only HTN: bp elevated in ED likely 2/2 anxiousness, continue atenolol, lasix, monitor closely HLD: chronic, stable, continue statin DVT ppx: Heparin FULL CODE PCP: Dr. Taylor Dispo: admit to PCU for treatment of P.E, likely to need hospitalization for 1-2 days Pt was seen and examined in collaboration with Dr. Mccrary, please see addendum A total of 52 minutes was spent coordinating, documenting, and providing care for this patient excluding time spent in the performance of separately billed services. This included personally viewing all current laboratories and imaging studies, medication reconciliation, outpatient chart review, and discussion with specialists. History of Present Illness Chief Complaint: Chest pain since 8 a.m. Primary Care Provider: Jasmina Taylor MD This is a 73 yr old F who has a significant PMH of CAD, HTN, HLD, pulmonary HTN, osteoarthritis, hx of cdiff, hx of insomnia, post operative afib who presents to ED 2/2 chest pain since 8 a.m. Of significance pt had CABG x 3 at [facility] at the end of April. She had HERNANDEZ to LAD, SVG to OM and PDA. Her post op course was complicated with afib which resolved. She was placed on amiodarone and lasix for 1 month. She recently follow up with her PCP for hospital follow up and has had a dry cough since hospitalization. A CXR was ordered and she was started on empiric doxycycline. Her is at bedside who helps elicit history. She developed chest pain at 8 a.m. this morning. She was told she was going to have twinges of chest pain after the surgery, but this chest discomfort was different. It was substernal and nonradiating. She has been having SOB since surgery and orthopnea. Overall appetite has been diminished since surgery. She continues to have a dry cough and has 2 more days left of her course of doxycycline. She denies any f/c/s, sob at rest, dizziness, lightheaded, n/v/d, abd pain, change in bowel or urinary habits. She did have some rectal bleeding after surgery which was related to her hemorrhoids. She has been using OTC tx for that and it is improving. She denies rectal bleeding today. Allergies Allergy/AdvReac Type Severity Reaction Status Date / Time Sulfa (Sulfonamide Allergy Intermediate Hives Verified 05/13/24 07:35 Antibiotics) codeine AdvReac Intermediate "deathly Verified 05/13/24 07:35 sick and I throw up" levofloxacin [From Levaquin] AdvReac Mild Nausea Verified 05/13/24 07:35 Home Medications Medication Instructions Recorded Confirmed Type coenzyme Q10 200 mg capsule (Co 200 mg PO QAM 02/12/19 06/06/24 History Q-10) aspirin 81 mg tablet,delayed 81 mg PO DAILY 08/17/20 06/06/24 History release (Ousmane Low Dose Aspirin) pantoprazole 40 mg tablet,delayed 40 mg PO DAILYBB 08/28/22 06/06/24 History release mirtazapine 15 mg tablet 7.5 mg PO HS 03/04/24 06/06/24 History multivitamin 1 tab PO QAM 03/04/24 06/06/24 History pravastatin 40 mg tablet 40 mg PO HS 03/04/24 06/06/24 History amiodarone 200 mg tablet 200 mg PO DAILY 06/06/24 06/06/24 History atenolol 25 mg tablet 25 mg PO DAILY 06/06/24 06/06/24 History furosemide 40 mg tablet 40 mg PO DAILY 06/06/24 06/06/24 History levalbuterol tartrate 45 1 inh inhalation UD 06/06/24 06/06/24 History mcg/actuation aerosol inhaler tramadol 50 mg tablet 25 mg PO Q6H PRN Moderate Pain 06/06/24 06/06/24 History (Scale Score 5-6) Past Med/Surg History Problem List (Updated 06/06/24 @ 18:14 by Suzanne Cabrera PA-C) Pulmonary embolism Abnormal nuclear stress test Family history of coronary artery disease (Acute) Chest pain (Acute) Chest pain Acute lower GI bleeding Rectal bleed (Acute) Bronchitis (Acute) Rectal bleeding Gastroenteritis (Acute) History of diverticulitis (Chronic) Encounter for pre-operative examination Diarrhea (Acute) Nausea and vomiting (Acute) Anterior T wave inversion (Acute) Acute electrocardiogram changes (Acute) Abdominal pain, epigastric (Acute) Discharge planning issues Encounter for pre-operative examination GERD (gastroesophageal reflux disease) (Chronic) Osteoarthritis (Chronic) Medical History CAD (coronary artery disease), [place] coronary artery Hypertensive emergency Asthma RARELY USES PRN INH HTN (hypertension) History of basal cell carcinoma Diverticular disease Valvular heart disease "LEAKY VALVE" - FOLLOWS W/ DR. DE SANTIAGO Hypertension Hyperlipidemia Surgical History S/P CABG (coronary artery bypass graft) History of cataract surgery LEFT History of basal cell carcinoma (BCC) excision History of hysterectomy History of esophagogastroduodenoscopy (EGD) History of colonoscopy Family History Sister Diabetes Brother Diabetes Other Heart disease Hypertension Social History Smoking Status: Never smoker Second Hand Exposure: No; Do You Dip or Chew Tobacco: No; Hx Alcohol Use: No Hx Substance Use: No Preferred Language: Nepalese Communication Ability: Effective Visual Impairment: Limited Hearing Ability: Normal Dynamometer Tester Required: No Beliefs That Will Affect Care: Spiritual marital status: Current Living Situation: Spouse Feels Safe at Home: Yes Assistive Devices: Cane and Walker Review of Systems Review of Systems: All systems reviewed & are unremarkable except as noted in HPI & below Physical Exam Physical Exam: please refer to Dr. Mccrary addendum for physical exam findings. Results & Data Results & Data Vital Signs (Past 12 Hours) Vital Signs Temp Pulse Resp BP Pulse Ox O2 Del Method 06/06/24 16:31 80 16 98 Room Air 06/06/24 16:02 99 Room Air 06/06/24 15:53 84 06/06/24 15:40 36.2 C L 76 20 155/97 H 94 Room Air Laboratory Results I have independently reviewed and interpreted patient's admitting labs including CBC, BMP, PTT, PT/INR, lipase, troponin Diagnostic Findings Chest CTA 06/06/24 16:04 CT ANGIOGRAM OF THE CHEST CLINICAL HISTORY: Chest pain. COMPARISON STUDY: Chest x-ray dated 06/06/2024. TECHNIQUE: Following the IV administration of 120 cc of Optiray 320, CT angiogram of the chest was performed from the upper abdomen to the thoracic inlet utilizing the pulmonary embolus protocol. Images are reviewed in the axial, sagittal, and coronal planes. 3-D MIPS images are created and assessed. IV contrast was administered without complication. A dose lowering technique was utilized adhering to the principles of ALARA. The examination is degraded by motion artifact. CT DOSE: 780.56 mGy.cm FINDINGS: Thyroid: Imaged portions of the thyroid gland are normal in size and attenuation. Thoracic aorta: There is atherosclerotic calcification of the thoracic aorta, which is normal in caliber and demonstrates standard 3-vessel arch anatomy. No dissection is seen. Pulmonary vasculature: The pulmonary trunk is normal in caliber. There are segmental and subsegmental pulmonary emboli within branches of the right lower lobe pulmonary artery. There may also be a small peripheral pulmonary embolus within a branch of the right middle lobe pulmonary artery. This is suboptimally assessed due to motion artifact. Segmental and subsegmental pulmonary emboli are seen within branches of the left upper lobe pulmonary artery. Heart: The patient is status post midline sternotomy. The heart is enlarged noting trace pericardial effusion. The coronary arteries are densely calcified. Lungs and pleural spaces: Evaluation of the lung parenchyma is degraded by motion artifact. There is no airspace consolidation typical for pneumonia or pleural effusion. The trachea and central airways appear clear. Foci of subsegmental atelectasis are noted at both lung bases. Mediastinum: There is no mediastinal lymphadenopathy. [place]: Clear. Axillae: There is no axillary lymphadenopathy. Upper abdomen: Partially visualized upper abdominal viscera is within normal limits. Skeletal structures: The skeletal structures are osteopenic. Degenerative change is noted in the thoracic spine. No lytic or blastic bony lesions are seen. IMPRESSION: 1. Bilateral segmental and subsegmental pulmonary emboli as detailed above. 2. Cardiomegaly. 3. No airspace consolidation or pleural effusion is identified. 4. Additional findings as above. ACT 112: Negative or not required by law. Electronically signed by: Roberto Ryan M.D. 06/06/2024 5:14 PM Chest X-Ray 06/06/24 16:04 SINGLE VIEW CHEST CLINICAL HISTORY: Atypical chest pain FINDINGS: An AP, portable, upright chest radiograph is compared to study dated 05/11/2024. The patient is status post midline sternotomy. The heart is enlarged. Atherosclerotic calcification of the thoracic aorta. The pulmonary vasculature is noncongested. Chronic interstitial thickening is similar to previous. There are low lung volumes with bibasilar scarring/atelectasis. No airspace consolidation or pleural effusion is identified. No pneumothorax is seen. The skeletal structures are osteopenic. The bony thorax is grossly intact. IMPRESSION: Cardiomegaly with no acute cardiopulmonary abnormality. ACT 112: Negative or not required by law. Electronically signed by: Roberto Ryan M.D. 06/06/2024 5:08 PM Medications Administered Medication List Discontinued Medications Ioversol (Optiray 320 125ml) 120 ml IV ONCE ONE Stop: 06/06/24 17:02 Last Admin: 06/06/24 17:02 Dose: 120 ml Documented By: JOSE COVID-19 Results Results COVID-19 Adm Lab Results: RBC 3.95 M/uL (4.20-5.40) L 06/06/24 WBC 6.49 K/ul (4.8-10.8) 06/06/24 Hgb 11.4 g/dl (12.0-16.0) L 06/06/24 Hct 35.7 % (37.0-47.0) L 06/06/24 Plt Count 275 K/uL (130-400) 06/06/24 Neutrophils (%) (Auto) 63.5 % 06/06/24 Lymphocytes (%) (Auto) 21.7 % 06/06/24 Monocytes # (Auto) 0.61 K/uL (0.11-0.59) H 06/06/24 Immature Granulocyte % (Auto) 0.3 % 06/06/24 Neutrophils # (Auto) 4.12 K/uL (1.40-6.50) 06/06/24 Lymphocytes # (Auto) 1.41 K/uL (1.20-3.40) 06/06/24 Monocytes # (Auto) 0.61 K/uL (0.11-0.59) H 06/06/24 Basophils # (Auto) 0.05 K/uL (0.00-0.20) 06/06/24 Immature Granulocyte # (Auto) 0.02 K/uL (0.01-0.20) 4 Na 139 mmol/L (136-145) 06/06/24 K 4.1 mmol/L (3.5-5.1) 06/06/24 Cl 104 mmol/L (98-107) 06/06/24 CO2 24 mmol/L (21-32) 06/06/24 Anion Gap 11 (3-11) 06/06/24 BUN 15 mg/dl (6-23) 06/06/24 Creatinine 1.00 mg/dl (0.6-1.2) 06/06/24 BUN/Creatinine Ratio 15.0 (10-20) 06/06/24 Glucose Level 104 mg/dl (70-99(Fasting)) H 06/06/24 Ca 9.6 mg/dl (8.6-10.3) 06/06/24 PTT 25 Seconds (21-31) 06/06/24 INR 1.0 (0.9-1.1) 06/06/24 Chest X-Ray 06/06/24 Code Status & VTE Plan Code Status FULL CODE VTE Prophylaxis Plan VTE Prophylaxis will be ordered: No Reason for no VTE drug order: Treatment not indicated Supervising Physician Co-Signing Physician Notes 73 yo F w/ recent CABG x 3 (end of April,), CAD, HTN, HLD presented to the ED at instruction from PCP for chest pain and elevated blood pressure. Pt reports she has been having chest pain in the form of "twinges" since surgery, has been about the same, reports some dry cough and sob since after the surgery which has also not changed in severity. She denies any increase in chest pain w/ deep breathing. Reports her BP at home was 155/101 on top of her chest pain which triggered her pcp office to send her to ED per pt. She denies any sore throat/febrile illness/acute changes in bladder habit/belly pain. She reports overall poor appetite since surgery. Pt reports she was taking doxycycline prescribed by her PCP as OP, and 2 days are remaining. Started for concerns of pleural effusion/dry cough (? pna) per pt. will complete the course. CXR and CTA chest done in the ED reviewed, noted to have PE. no concerns for pneumonia, no pleural effusion noted. Lab reviewed, fairly wnl w/ slight drop in Hb at 11.4, expected postoperative change. Active Problems: PE: heparin drip, will need PO anticoagulation at DC. recent CABG, Chest pain: pt currently on aspirin only, continue. cardio consult given recent cabg. tele monitor and trend troponin. ECHO to ro heart strain. 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 on sinus rhythm On Exam: GENERAL: Alert and oriented x3. NAD, on RA. HEENT: No pallor, no icterus. Pupils equal, round and reactive to light. Oral mucosa moist. NECK: No JVD, no neck masses. HEART: S1 and S2 heard. Regular rate and rhythm. No murmur, no gallop. Midsternal recent operative scar, well healing. RESPIRATORY SYSTEM: Normal AP diameter. No accessory muscle use. No wheezing, no crackles. ABDOMEN: Soft, bowel sounds present, nontender, no distention. CENTRAL NERVOUS SYSTEM: No facial droop. Speech is clear. Obeys simple commands. Moves extremities. EXTREMITIES: No edema, no erythema seen. LLE w/ minimal erythema x [place] at gr aft harvest site (erythema has been stable per pt since sx). I have seen and examined the patient and have discussed the case with the provider above. I agree with the assessment and plan as stated. I spent 25 min independently on top of KELLY's time. (1) Chest pain Chest pain type: unspecified Qualified Code(s): R07.9 - Chest pain, unspecified
[2024-06-06] MEDS: HEPARIN SOD (PORCINE) 1000 UNIT/ML IV ONE (18:04)
[2024-06-06] MEDS: HEPARIN SODIUM/DEXTROSE 25,000 UNITS/500 ML BAG IV SCH (18:04)
[2024-06-06] MEDS ORDERED: POLYETHYLENE (MIRALAX) 17 GM PACK PO PRN (18:52)
[2024-06-06] MEDS ORDERED: FAMOTIDINE 20 MG TAB PO PRN (18:52)
[2024-06-06] MEDS ORDERED: ACETAMINOPHEN 325 MG TAB PO PRN (18:52)
[2024-06-06] MEDS ORDERED: traMADol HCL 50 MG TABLET PO PRN (18:52)
[2024-06-06] MEDS: MIRTAZAPINE TAB 15 MG TAB PO SCH (21:01)
[2024-06-06] MEDS: PRAVASTATIN SOD 40 MG TAB PO SCH (21:01)
[2024-06-06] MEDS: DOXYCYCLINE HYCLATE 100 MG CAP PO SCH (21:01)
[2024-06-07 01:16] LABS: ANTI-Xa, UFH(UnfractionatedHep 0.96 IU/ml (0.3-0.7)
[2024-06-07] MEDS: PANTOprazole 40 MG TAB PO SCH (06:11)
[2024-06-07 06:47] LABS: Basophils # (auto) 0.04 K/uL (0.00-0.20); Basophils % (auto) 0.5 %; Eosinophils # (auto) 0.44 K/uL (0.00-0.50); Immature Granulocytes # (auto) 0.02 K/uL (0.01-0.20); Immature Granulocytes % (auto) 0.2 %; Lymphocytes # (auto) 1.78 K/uL (1.20-3.40); Lymphocytes % (auto) 20.1 %; Mean Corpuscular Hemoglobin 29.5 pg (25.0-34.0); Mean Corpuscular Hgb Conc 32.4 g/dL (32.0-36.0); Mean Corpuscular Volume 91.2 fL (80.0-100.0); Mean Platelet Volume 9.6 fL (9.4-12.4); Monocytes # (auto) 0.82 K/uL (0.11-0.59); Monocytes % (auto) 9.3 %; Neutrophils # (auto) 5.74 K/uL (1.40-6.50); Neutrophils % (auto) 64.9 %; Platelet Count 246 K/uL (130-400); RDW Coefficient of Variation 14.1 % (11.5-14.5); RDW Standard Deviation 46.2 fL (36.4-46.3); Red Blood Count 3.73 M/uL (4.20-5.40); White Blood Count 8.84 K/ul (4.8-10.8)
[2024-06-07 07:08] LABS: Albumin Globulin Ratio 1.3 (0.9-2); Albumin Level 3.8 gm/dl (3.4-5.0); BUN Creatinine Ratio 13.8 (10-20); Bilirubin,Total 0.6 mg/dl (0.2-1.0); Creatinine Clr Calc Pharmacy 57.2 ml/min; Est GFR (African American) 70.2 ml/min; Est GFR (Non-African American) 60.6 ml/min; Globulin 2.9 gm/dl (2.5-4.0); Magnesium 1.8 mg/dl (1.7-2.4); Potassium 3.9 mmol/L (3.5-5.1); Total Protein 6.7 gm/dl (6.0-8.3)
[2024-06-07 07:35] LABS: ANTI-Xa, UFH(UnfractionatedHep 0.58 IU/ml (0.3-0.7)
--- NOTE | 2024-06-07 07:54 | Hospitalist Progress Note ---
Date of Service June 07, 2024 Assessment & Plan (1) Chest pain: (2) Pulmonary embolism: (3) S/P CABG (coronary artery bypass graft): (4) Hypertension: (5) Hyperlipidemia: Plan This is a 73 yr old F who has a significant PMH of CAD, HTN, HLD, pulmonary HTN, osteoarthritis, hx of cdiff, hx of insomnia, post operative afib who presents to ED 2/2 chest pain since 8 a.m. S/P CABG x 3 at [facility] [place] On 05/15/24. Complicated with post operative afib and delirium both have since resolved. She is on amiodarone and lasix x 1 month. Recently started on course of doxycycline for 10 days due to OP CXR showing atelectasis vs PNA in setting of dry cough. She has 1 more days of this. Started with increased chest pain/heaviness yesterday at 8 a.m. CTA Chest: Bilateral segmental and subsegmental pulmonary emboli Chest Pain Bilateral segmental and subsegmental pulmonary emboli without cor pulmonale or right heart strain S/P CABG x3 on 05/15/24 Hemodynamically stable, likely provoked in setting of recent surgery continue Heparin gtt for today, will likely switch to eliquis tomorrow- muhammad check to be done by CM. Hb has been stable at 11 Echo pending, LE US pending. Trop trend negative Cardiology evaluation pending in setting of recent CABG Post op atrial fibrillation currently in NSR continue amiodarone, started 05/20 for 30 days only now on heparin drip HTN: stable, continue atenolol, lasix HLD: chronic, stable, continue statin DVT ppx: Heparin drip Dispo: continue heparin drip for PE, echo pending. Updated at bedside Time spent: Approx 35 mins Admission and Anticipated Discharge Date Admission Date: June 06, 2024 Subjective Patient was seen and examined at bedside. She feels somewhat better. Denies any more twinges/CP. SOB is somewhat better. Denies any leg pain or swelling. No fever, chills, N/V. Observed ambulating from bathroom to bed with help of NA on room air. at bedside. Review of Systems Review of Systems: All systems reviewed & are unremarkable except as noted in Subjective Physical Exam Physical Exam: General: Sitting comfortably in bed, not in distress, on room air HEENT: EOMI, DEMETRI, MMM Chest: Clear breath sounds bilaterally CVS: Regular rate and rhythm, normal heart sounds Abdomen: Soft, non tender, not distended, normal bowel sounds Neuro: Awake, alert, oriented, conversing well, non focal Extremities: No edema Skin: Recent bypass incision wound on chest healing. LLE graft site healing. Results & Data Results & Data Vital Signs (Past 12 Hours) Vital Signs Temp Pulse Pulse Resp BP Pulse Ox O2 Del Method 06/07/24 02:47 36.8 C 83 18 120/79 94 Room Air 06/06/24 22:43 82 06/06/24 22:30 37 C 81 18 128/83 94 Room Air Laboratory Results Short CBC 06/06/24 06/07/24 Range/Units 16:45 06:09 WBC 6.49 8.84 (4.8-10.8) K/ul Hgb 11.4 L 11.0 L (12.0-16.0) g/dl Hct 35.7 L 34.0 L (37.0-47.0) % Plt Count 275 246 (130-400) K/uL BMP 06/06/24 06/07/24 16:45 06:09 Sodium 139 140 Potassium 4.1 3.9 Chloride 104 106 Carbon Dioxide 24 26 BUN 15 13 Creatinine 1.00 0.94 Glucose 104 H 105 H Calcium 9.6 9.0 Liver Function 06/07/24 Range/Units 06:09 Total Bilirubin 0.6 (0.2-1.0) mg/dl AST 15 (13-39) U/L ALT 11 (7-52) U/L Alkaline Phosphatase 79 (34-104) U/L Albumin 3.8 (3.4-5.0) gm/dl (1) Chest pain Chest pain type: unspecified Qualified Code(s): R07.9 - Chest pain, unspecified
[2024-06-07] MEDS: MULTIVITAMIN TAB PO SCH (08:37)
[2024-06-07] MEDS: ASPIRIN 81 MG ECTAB PO SCH (08:37)
[2024-06-07] MEDS: FUROSEMIDE 40 MG TAB PO SCH (08:37)
[2024-06-07] MEDS: ATENOLOL 25 MG TABLET PO SCH (08:37)
[2024-06-07] MEDS: AMIODARONE 200 MG TAB PO SCH (08:38)
--- NOTE | 2024-06-07 08:43 | Cardiology Consultation ---
Date of Consultation June 07, 2024 Assessment & Plan (1) Pulmonary embolism: (2) S/P CABG x 3: (3) CAD (coronary artery disease), [place] coronary artery: Plan Acute PE CAD s/p CABG [place]3 [place] [facility] [place] post [place] AFIB HLD HTN -Patient s/p CABG x3 05/13 who presented to the ED with acute onset chest pain. CTA chest with acute PE -Patient appears euvolemic on examination -Echocardiogram pending -Continue heparin drip, plan to transition to Eliquis Case discussed with Dr Pedro. I spent a total of 35 minutes on the date of service in preparation, delivery, and documentation of the care provided to this patient, excluding any time spent in the performance of separately billed services. Jahaira Aviles PA-C Department of Cardiology, [facility] This chart was completed in part utilizing Speech Voice Recognition Software. Grammatical errors, random word insertions, pronoun errors, and incomplete sentences are an occasional consequence of this system due to software limitations, ambient noise, and hardware issues. Any formal questions or co ncerns about the content, text, or information contained within the body of this dictation should be directly addressed to the provider for clarification. Supervising Physician Co-Signing Physician Notes I have reviewed the advance practitioner's documentation, and I agree with, and take responsibility for the plan of care. I have personally performed a history and physical examination on the patient. I spent a total of 40 minutes on the date of service in preparation, delivery, and documentation of the care provided to this patient, excluding any time spent in the performance of separately billed service echocardiogram shows preserved left ventricular ejection fraction, right ventricular size and function appears to be normal. No evidence of pulmonary hypertension. PE management per primary team. History of Present Illness Reason for Consultation: PE Requesting Physician: Dr. Smith Attending Physician: Javier Smith MD History of Present Illness Amairani Trujillo is a 73 year old female with PMHx CAD with recent CABG x3 05/15/2024 [place] [facility] [place] (complicated by post op AFIB and delirium, resolved), HTN, HLD, pulmonary HTN presented to [facility] ED yesterday with chest pain. Currently on amiodarone, potassium, pepcid and lasix per protocol x1 month. Given doxycycline for post-op CXR with atelectasis vs pneumonia in setting dry cough. Chest pain/heaviness started 2 days ago at 8AM. Work-up in ED revealed acute PE on CTA chest. Heparin drip started. Echocardiogram ordered Patient initially presented to [facility] ED 05/12/2024 with chest pain. Nuclear stress test positive for reversible ischemia. Cardiac CATH 05/13 revealed severe multivessel disease. Patient transferred to [facility] [place], underwent CABG x3 05/15. Discharged 05/20. Today patient reports feeling better. Cough and shortness of breath improving. Chest pain has resolved. Continues with mild midline chest tenderness Allergies Allergy/AdvReac Type Severity Reaction Status Date / Time Sulfa (Sulfonamide Allergy Intermediate Hives Verified 05/13/24 07:35 Antibiotics) codeine AdvReac Intermediate "deathly Verified 05/13/24 07:35 sick and I throw up" levofloxacin [From Levaquin] AdvReac Mild Nausea Verified 05/13/24 07:35 Home Medications Medication Instructions Recorded Confirmed Type coenzyme Q10 200 mg capsule (Co 200 mg PO QAM 02/12/19 06/06/24 History Q-10) aspirin 81 mg tablet,delayed 81 mg PO DAILY 08/17/20 06/06/24 History release (Ousmane Low Dose Aspirin) pantoprazole 40 mg tablet,delayed 40 mg PO DAILYBB 08/28/22 06/06/24 History release mirtazapine 15 mg tablet 7.5 mg PO HS 03/04/24 06/06/24 History multivitamin 1 tab PO QAM 03/04/24 06/06/24 History pravastatin 40 mg tablet 40 mg PO HS 03/04/24 06/06/24 History amiodarone 200 mg tablet 200 mg PO DAILY 06/06/24 06/06/24 History atenolol 25 mg tablet 25 mg PO DAILY 06/06/24 06/06/24 History furosemide 40 mg tablet 40 mg PO DAILY 06/06/24 06/06/24 History levalbuterol tartrate 45 1 inh inhalation UD 06/06/24 06/06/24 History mcg/actuation aerosol inhaler tramadol 50 mg tablet 25 mg PO Q6H PRN Moderate Pain 06/06/24 06/06/24 History (Scale Score 5-6) Patient History Medical History CAD (coronary artery disease), [place] coronary artery Hypertensive emergency Asthma RARELY USES PRN INH HTN (hypertension) History of basal cell carcinoma Diverticular disease Valvular heart disease "LEAKY VALVE" - FOLLOWS W/ DR. DE SANTIAGO Hypertension Hyperlipidemia Surgical History S/P CABG (coronary artery bypass graft) History of cataract surgery LEFT History of basal cell carcinoma (BCC) excision History of hysterectomy History of esophagogastroduodenoscopy (EGD) History of colonoscopy Family History Sister Diabetes Brother Diabetes Other Heart disease Hypertension Social History Smoking Status: Never smoker Second Hand Exposure: No; Do You Dip or Chew Tobacco: No; Hx Alcohol Use: No Hx Substance Use: No Preferred Language: Occitan Communication Ability: Effective Visual Impairment: Limited Hearing Ability: Normal Physicist Light And Optics Required: No Beliefs That Will Affect Care: Spiritual marital status: Current Living Situation: Spouse Feels Safe at Home: Yes Assistive Devices: Cane and Walker Review of Systems Review of Systems: All systems reviewed & are unremarkable except as noted in HPI & below Respiratory: + cough and + dyspnea Cardiovascular: Additional Comments: chest tenderness Physical Exam Constitutional: WD/WN, vitals as above well developed Eyes: PERRL, conjunctivae normal, anicteric sclerae Respiratory: normal respiratory effort, lungs clear to auscultation no cough Auscultation: no crackles, no rales and no wheezes Cardiovascular: RRR, no murmur, no edema Heart Sounds: normal S1 and normal S2; no murmur Vessels: no JVD Extremities: no edema Midline incision well healed without sign of infection Musculoskeletal: no cyanosis or clubbing, extremities motor strength 5/5 Vein graft harvest sites without erythema, drainage. No sign of infection Results & Data Vital Signs (Past 12 Hours) Vital Signs Temp Pulse Pulse Resp BP Pulse Ox O2 Del Method 06/07/24 08:15 37.2 C 85 18 111/78 95 Room Air 06/07/24 02:47 36.8 C 83 18 120/79 94 Room Air 06/06/24 22:43 82 06/06/24 22:30 37 C 81 18 128/83 94 Room Air Laboratory Results Cardiac Enzymes 06/06/24 06/06/24 06/07/24 Range/Units 16:45 19:55 00:19 AST (13-39) U/L Troponin I High Sens 9.7 11.3 11.2 (0-14) pg/ml 06/07/24 06/07/24 Range/Units 06:09 06:52 AST 15 (13-39) U/L Troponin I High Sens 11.9 (0-14) pg/ml Coagulation 06/06/24 Range/Units 16:45 PT 11.1 (9.0-12.0) Seconds APTT 25 (21-31) Seconds CBC 06/06/24 06/07/24 Range/Units 16:45 06:09 WBC 6.49 8.84 (4.8-10.8) K/ul RBC 3.95 L 3.73 L (4.20-5.40) M/uL Hgb 11.4 L 11.0 L (12.0-16.0) g/dl Hct 35.7 L 34.0 L (37.0-47.0) % Plt Count 275 246 (130-400) K/uL Neut # (Auto) 4.12 5.74 (1.40-6.50) K/uL Lymph # (Auto) 1.41 1.78 (1.20-3.40) K/uL [place] # (Auto) 0.61 H 0.82 H (0.11-0.59) K/uL Eos # (Auto) 0.28 0.44 (0.00-0.50) K/uL Baso # (Auto) 0.05 0.04 (0.00-0.20) K/uL Comprehensive Metabolic Panel 06/06/24 06/07/24 Range/Units 16:45 06:09 Sodium 139 140 (136-145) mmol/L Potassium 4.1 3.9 (3.5-5.1) mmol/L Chloride 104 106 (98-107) mmol/L Carbon Dioxide 24 26 (21-32) mmol/L BUN 15 13 (6-23) mg/dl Creatinine 1.00 0.94 (0.6-1.2) mg/dl Glucose 104 H 105 H (70-99(Fasting)) mg/dl Calcium 9.6 9.0 (8.6-10.3) mg/dl AST 15 (13-39) U/L ALT 11 (7-52) U/L Alkaline Phosphatase 79 (34-104) U/L Total Protein 6.7 (6.0-8.3) gm/dl Albumin 3.8 (3.4-5.0) gm/dl Intake and Output 06/06/24 06/07/24 06/07/24 22:59 06:59 14:59 Intake Total 272.8 / 624.0 351.2 / 624.0 93.667 / 93.667 Output Total / 2 / Balance 271.8 / 622.0 350.2 / 622.0 93.667 / 93.667 Intake: IV 22.8 / 174.0 151.2 / 174.0 93.667 / 93.667 Heparin Sodium/Dextrose 25,000 22.8 / 174.0 151.2 / 174.0 93.667 / 93.667 units In 500 ml @ 1,000 UNITS/ HR 20 mls/hr IV .Q24H CESAR Rx#: [id number] Oral 250 / 450 200 / 450 Output: # Bowel Movements / 2 1 2 Other: # Unmeasured Voids 1 1 Weight 81.9 kg 81.8 kg Weight Measurement Method Built in [facility] Diagnostic Findings CTA chest 06/06/2024 Bilateral segmental and subsegmental pulmonary emboli cardiomegaly no airspace consolidation or pleural effusion EKG 06/07/2024 ST PVCs 84bpm LAD ECHO 05/14/2024 LVEF 55-59% small sized anterior WMA with hypokinesis of the segments RV systolic function is normal Mild aortic valve regurgitation (3) CAD (coronary artery disease), [place] coronary artery Associated angina: with stable angina [place] vs. transplanted heart: [place] heart Qualified Code(s): I25.118 - Atherosclerotic heart disease of [place] coronary artery with other forms of angina pectoris
[2024-06-07] MEDS ORDERED: NON-FORMULARY MEDICATION (Coenzyme Q10 [Co Q-10] 200 mg Capsule) PO SCH (09:00)
--- NOTE | 2024-06-07 12:04 | Electrocardiogram Report ---
Test Reason : Blood Pressure : */* mmHG Vent. Rate : 81 BPM Atrial Rate : 81 BPM P-R Int : 186 ms QRS Dur : 112 ms QT Int : 406 ms P-R-T Axes : -9 -39 114 degrees QTcB Int : 471 ms Normal sinus rhythm Left ventricular hypertrophy with repolarization abnormality Abnormal ECG When compared with ECG of 11-May-2024 12:39, Nonspecific T wave abnormality Lateral leads now present Confirmed by Alexander Crowley ([id number]) on 06/07/2024 12:03:40 PM Referred By: REFERRED SELF Confirmed By: Alexander Crowley
--- NOTE | 2024-06-07 12:04 | Electrocardiogram Report ---
Test Reason : Blood Pressure : */* mmHG Vent. Rate : 84 BPM Atrial Rate : 84 BPM P-R Int : 184 ms QRS Dur : 110 ms QT Int : 394 ms P-R-T Axes : 0 -40 107 degrees QTcB Int : 465 ms Sinus rhythm with occasional Premature ventricular complexes Left ventricular hypertrophy with repolarization abnormality Abnormal ECG When compared with ECG of 06-Jun-2024 15:51, Premature ventricular complexes are now Present Confirmed by Alexander Crowley ([id number]) on 06/07/2024 12:04:18 PM Referred By: REFERRED SELF Confirmed By: Alexander Crowley
--- NOTE | 2024-06-07 13:09 | Ultrasound Report ---
BILATERAL LOWER EXTREMITY VENOUS DOPPLER HISTORY: bilateral PE, r/o DVT COMPARISON STUDY: Bilateral lower extremity venous Doppler 08/11/2018. FINDINGS: There is normal compressibility, flow, and augmentation within the left lower extremity maria luz p venous system. The right common femoral, superficial femoral, popliteal, anterior tibial veins are patent. There is thrombus within the right peroneal veins. IMPRESSION: 1. No DVT within the left lower extremity. 2. Right below the knee DVT involving the peroneal veins. ACT 112: Negative or not required by law. Electronically signed by: Diaz Rubio M.D. 06/07/2024 1:08 PM
[2024-06-08] MEDS: ONDANSETRON INJ 2 MG/ML 2 ML VIAL IV PRN (00:12)
[2024-06-08] MEDS: MELATONIN 3 MG TAB PO PRN (00:12)
[2024-06-08 04:38] LABS: Hematocrit (blood only) 32.6 % (37.0-47.0); Hemoglobin 10.8 g/dl (12.0-16.0); Mean Corpuscular Hemoglobin 29.8 pg (25.0-34.0); Mean Corpuscular Hgb Conc 33.1 g/dL (32.0-36.0); Mean Corpuscular Volume 89.8 fL (80.0-100.0); Mean Platelet Volume 9.5 fL (9.4-12.4); Platelet Count 245 K/uL (130-400); RDW Coefficient of Variation 14.2 % (11.5-14.5); RDW Standard Deviation 46.5 fL (36.4-46.3); Red Blood Count 3.63 M/uL (4.20-5.40); White Blood Count 7.47 K/ul (4.8-10.8)
[2024-06-08 04:47] LABS: BUN Creatinine Ratio 11.6 (10-20); Est GFR (African American) 56.8 ml/min; Magnesium 1.8 mg/dl (1.7-2.4); Phosphorus 3.8 mg/dl (2.5-4.9); Potassium 3.8 mmol/L (3.5-5.1)
--- NOTE | 2024-06-08 10:35 | Cardiology Progress Note ---
Date of Service June 08, 2024 Assessment & Plan (1) Pulmonary embolism: (2) S/P CABG x 3: (3) CAD (coronary artery disease), [place] coronary artery: Plan 73-year-old female with acute pulmonary embolus. Likely provoked in the setting of recent cardiothoracic surgery. Transition IV heparin to Eliquis. Continue low-dose amiodarone for 6-12 weeks with history of perioperative atrial fibrillation. Patient appears euvolemic/compensated at this time. Continue aspirin, furosemide, atenolol, and pravastatin as ordered. Outpatient cardiology follow-up in 2 weeks. Admission and Anticipated Discharge Date Admission Date: June 06, 2024 Subjective 73-year-old female presents to the emergency department 06/06/2024 with chest discomfort. CTA of the chest with evidence of segmental and subsegmental pulmonary embolus. Venous duplex demonstrates right below the knee DVT involving the peroneal veins. Patient currently resting comfortably. Oxygen saturation 96 on room air. Denies dyspnea or chest pain at rest. Telemetry reveals sinus rhythm in the 70s and 80s. Echocardiogram report with normal right ventricular size and function. No evidence of pulmonary hypertension. Review of Systems Review of Systems: All systems reviewed & are unremarkable except as noted in Subjective Physical Exam Constitutional: well nourished and + obese; no acute distress Respiratory: normal respiratory effort; no respiratory distress and no labored breathing Auscultation: no crackles, no rales, no rhonchi and no wheezes Cardiovascular: Rate/Rhythm: regular rate and regular rhythm Heart Sounds: normal S1 and normal S2; no murmur Vessels: radial pulses present; no JVD Extremities: + edema (Mild 1+ asymmetric right lower extremity edema..) Gastrointestinal (Abdomen): Inspection/Auscultation: normal bowel sounds; abdomen not distended Percussion/Palpation: abdomen soft; abdomen nontender, no guarding and abdomen not rigid Neurologic: CN's II-XI intact bilaterally and moves all extremities; no focal motor deficits Results & Data Vital Signs (Past 12 Hours) Vital Signs Temp Pulse Pulse Resp BP Pulse Ox O2 Del Method 06/08/24 08:06 36.7 C 82 18 107/70 96 Room Air 06/08/24 03:23 36.9 C 78 18 125/81 91 Room Air 06/07/24 23:43 75 06/07/24 22:33 36.6 C 75 18 115/77 94 Room Air Laboratory Results CBC 06/08/24 Range/Units 04:09 WBC 7.47 (4.8-10.8) K/ul RBC 3.63 L (4.20-5.40) M/uL Hgb 10.8 L (12.0-16.0) g/dl Hct 32.6 L (37.0-47.0) % Plt Count 245 (130-400) K/uL Comprehensive Metabolic Panel 06/08/24 Range/Units 04:09 Sodium 139 (136-145) mmol/L Potassium 3.8 (3.5-5.1) mmol/L Chloride 104 (98-107) mmol/L Carbon Dioxide 25 (21-32) mmol/L BUN 13 (6-23) mg/dl Creatinine 1.12 (0.6-1.2) mg/dl Glucose 101 H (70-99(Fasting)) mg/dl Calcium 9.0 (8.6-10.3) mg/dl Intake and Output 06/07/24 06/08/24 06/08/24 22:59 06:59 14:59 Intake Total 432.333 / 826.000 100 / 826.000 Balance 432.333 / 826.000 100 / 826.000 Intake: IV 232.333 / 326.000 Heparin Sodium/Dextrose 25,000 232.333 / 326.000 units In 500 ml @ 1,000 UNITS/ HR 20 mls/hr IV .Q24H [facility] Rx#: [id number] Oral 200 / 500 100 / 500 Other: # Unmeasured Voids 2 3 Weight 80.9 kg (1) Pulmonary embolism Pulmonary embolism type: multiple subsegmental (without acute cor pulmonale) Qualified Code(s): I26.94 - Multiple subsegmental pulmonary emboli without acute cor pulmonale (3) CAD (coronary artery disease), [place] coronary artery [place] vs. transplanted heart: [place] heart Associated angina: with stable angina Qualified Code(s): I25.118 - Atherosclerotic heart disease of [place] coronary artery with other forms of angina pectoris
[2024-06-08 15:34] VITALS: PULSE 69; TEMP 98.2; O2SAT 95
--- NOTE | 2024-06-08 15:43 | Discharge Summary ---
Discharge Summary Date of Service Patient was admitted to the telemetry unit for chest pain resulting from acute pulmonary embolism status post coronary artery bypass grafting in April. Patient was started on heparin drip. Cardiology was consulted. They recommended continuing amiodarone as she had postoperative atrial fibrillation. Heparin drip was converted to apixaban 10 mg twice daily for 7 days and then 5 mg twice daily thereafter. Patient felt much better on the date of discharge. She was ambulated. Vital signs are stable and physical exam findings are stable at the time of discharge. She will follow-up closely with her PCP later this week and will follow-up with cardiology. They will set up an appointment. Principal Dx & Hospital Course #1 = Principal Diagnosis (1) Chest pain: (2) Pulmonary embolism: (3) S/P CABG (coronary artery bypass graft): (4) Hypertension: (5) Hyperlipidemia: Plan This is a 73 yr old F who has a significant PMH of CAD, HTN, HLD, pulmonary HTN, osteoarthritis, hx of cdiff, hx of insomnia, post operative afib who presents to ED 2/2 chest pain since 8 a.m. S/P CABG x 3 at [facility] On 05/15/24. Complicated with post operative afib and delirium both have since resolved. She is on amiodarone and lasix x 1 month. Recently started on course of doxycycline for 10 days due to OP CXR showing atelectasis vs PNA in setting of dry cough. She has 1 more days of this. Started with increased chest pain/heaviness yesterday at 8 a.m. CTA Chest: Bilateral segmental and subsegmental pulmonary emboli Chest Pain Bilateral segmental and subsegmental pulmonary emboli without cor pulmonale or right heart strain S/P CABG x3 on 05/15/24 Hemodynamically stable, likely provoked in setting of recent surgery continue Heparin gtt for today, will likely switch to eliquis tomorrow- muhammad check to be done by CM. Hb has been stable at 11 Echo pending, LE US pending. Trop trend negative Cardiology evaluation pending in setting of recent CABG Post op atrial fibrillation currently in NSR continue amiodarone, started 05/20 for 30 days only now on heparin drip HTN: stable, continue atenolol, lasix HLD: chronic, stable, continue statin DVT ppx: Heparin drip Dispo: continue heparin drip for PE, echo pending. Updated at bedside Time spent: Approx 35 mins Notes For Next Care Provider Follow-up with cardiology Follow-up with cardiothoracic surgery in [place] as already scheduled Check CBC and BMP at hospital follow-up Medication Changes From Visit Apixaban 10 mg twice daily for 7 days and then 5 mg twice daily thereafter Admission HPI Per Admitting Provider This is a 73 yr old F who has a significant PMH of CAD, HTN, HLD, pulmonary HTN, osteoarthritis, hx of cdiff, hx of insomnia, post operative afib who presents to ED 2/2 chest pain since 8 a.m. Of significance pt had CABG x 3 at [facility] at the end of April. She had HERNANDEZ to LAD, SVG to OM and PDA. Her post op course was complicated with afib which resolved. She was placed on amiodarone and lasix for 1 month. She recently follow up with her PCP for hospital follow up and has had a dry cough since hospitalization. A CXR was ordered and she was started on empiric doxycycline. Her is at bedside who helps elicit history. She developed chest pain at 8 a.m. this morning. She was told she was going to have twinges of chest pain after the surgery, but this chest discomfort was different. It was substernal and nonradiating. She has been having SOB since surgery and orthopnea. Overall appetite has been diminished since surgery. She continues to have a dry cough and has 2 more days left of her course of doxycycline. She denies any f/c/s, sob at rest, dizziness, lightheaded, n/v/d, abd pain, change in bowel or urinary habits. She did have some rectal bleeding after surgery which was related to her hemorrhoids. She has been using OTC tx for that and it is improving. She denies rectal bleeding today. Admission Exam Per Admitting Provider See H&P Discharge Exam General- adult female seen with her spouse. NAD Head- atraumatic Eyes- PERRL, EOMI, anicteric ENT- oropharynx clear Neck- supple, no JVD, no adenopathy, no thyromegaly; carotids +2/2, no bruits appreciated Lungs- clear to auscultation and percussion Heart- regular rhythm; no murmur, no gallop, no rub appreciated Abdomen- normal bowel sounds, soft, nontender, no masses or hepatosplenomegaly Extremities- no pretibial edema, no calf tenderness; peripheral pulses intact Neuro- alert, oriented x 3; PERRL, EOMI; no focal deficits Skin- warm & dry Updated Medication List Medication Instructions Recorded Confirmed Type coenzyme Q10 200 mg capsule (Co 200 mg PO QAM 02/12/19 06/06/24 History Q-10) aspirin 81 mg tablet,delayed 81 mg PO DAILY 08/17/20 06/06/24 History release (Ousmane Low Dose Aspirin) pantoprazole 40 mg tablet,delayed 40 mg PO DAILYBB 08/28/22 06/06/24 History release mirtazapine 15 mg tablet 7.5 mg PO HS 03/04/24 06/06/24 History multivitamin 1 tab PO QAM 03/04/24 06/06/24 History pravastatin 40 mg tablet 40 mg PO HS 03/04/24 06/06/24 History amiodarone 200 mg tablet 200 mg PO DAILY 06/06/24 06/06/24 History atenolol 25 mg tablet 25 mg PO DAILY 06/06/24 06/06/24 History furosemide 40 mg tablet 40 mg PO DAILY 06/06/24 06/06/24 History levalbuterol tartrate 45 1 inh inhalation UD 06/06/24 06/06/24 History mcg/actuation aerosol inhaler tramadol 50 mg tablet 25 mg PO Q6H PRN Moderate Pain 06/06/24 06/06/24 History (Scale Score 5-6) apixaban 5 mg tablet 5 mg PO BID #60 tabs 06/08/24 Rx apixaban 5 mg tablet (Eliquis) 10 mg (2 x 5 mg) PO BID #14 tabs 06/08/24 Rx Hospital Stay Data Consultations 06/06/24 17:25 ED Decision to Admit Stat 06/06/24 18:13 Consult Cardiology Routine Diagnostic Imagining Performed 06/06/24 16:04 CT angio chest PE protocol Stat 06/07/24 10:10 US leg [US venous doppler LE BI] Routine Laboratory Results WBC 7.47 K/ul (4.8-10.8) 06/08/24 04:09 RBC 3.63 M/uL (4.20-5.40) L 06/08/24 04:09 Hgb 10.8 g/dl (12.0-16.0) L 06/08/24 04:09 POC Hgb 11.6 g/dl (12.0-16.0) L 06/06/24 16:53 Hct 32.6 % (37.0-47.0) L 06/08/24 04:09 POC Hct 34 % (37-47) L 06/06/24 16:53 MCV 89.8 fL (80.0-100.0) 06/08/24 04:09 MCH 29.8 pg (25.0-34.0) 06/08/24 04:09 MCHC 33.1 g/dL (32.0-36.0) 06/08/24 04:09 RDW Std Deviation 46.5 fL (36.4-46.3) H 06/08/24 04:09 RDW Coeff of [place] 14.2 % (11.5-14.5) 06/08/24 04:09 Plt Count 245 K/uL (130-400) 06/08/24 04:09 MPV 9.5 fL (9.4-12.4) 06/08/24 04:09 Immature Gran % (Auto) 0.2 % 06/07/24 06:09 Neut % (Auto) 64.9 % 06/07/24 06:09 Lymph % (Auto) 20.1 % 06/07/24 06:09 [place] % (Auto) 9.3 % 06/07/24 06:09 Eos % (Auto) 5.0 % 06/07/24 06:09 Baso % (Auto) 0.5 % 06/07/24 06:09 Neut # (Auto) 5.74 K/uL (1.40-6.50) 06/07/24 06:09 Lymph # (Auto) 1.78 K/uL (1.20-3.40) 06/07/24 06:09 [place] # (Auto) 0.82 K/uL (0.11-0.59) H 06/07/24 06:09 Eos # (Auto) 0.44 K/uL (0.00-0.50) 06/07/24 06:09 Baso # (Auto) 0.04 K/uL (0.00-0.20) 06/07/24 06:09 Immature Gran # (Auto) 0.02 K/uL (0.01-0.20) 06/07/24 06:09 PT 11.1 Seconds (9.0-12.0) 06/06/24 16:45 INR 1.0 (0.9-1.1) 06/06/24 16:45 APTT 25 Seconds (21-31) 06/06/24 16:45 PTT Ratio 0.9 06/06/24 16:45 Heparin Anti-Xa, LM Wt Cancelled 06/08/24 04:09 Heparin Anti-Xa, Unfract 0.60 IU/ml (0.3-0.7) 06/08/24 04:09 POC Sodium 140 mmol/L (135-144) 06/06/24 16:53 Sodium 139 mmol/L (136-145) 06/08/24 04:09 POC Potassium 3.9 mmol/L (3.3-5.0) 06/06/24 16:53 Potassium 3.8 mmol/L (3.5-5.1) 06/08/24 04:09 POC Chloride 104 mmol/L (101-112) 06/06/24 16:53 Chloride 104 mmol/L (98-107) 06/08/24 04:09 Carbon Dioxide 25 mmol/L (21-32) 06/08/24 04:09 POC Total CO2 24 mmol/L (24-31) 06/06/24 16:53 Anion Gap 10 (3-11) 06/08/24 04:09 POC Anion Gap 17.0 mmol/L (16-25) 06/06/24 16:53 POC BUN 13 mg/dl (7-18) 06/06/24 16:53 BUN 13 mg/dl (6-23) 06/08/24 04:09 Creatinine 1.12 mg/dl (0.6-1.2) 06/08/24 04:09 POC Creatinine 1.0 mg/dl (0.6-1.3) 06/06/24 16:53 Est Cr Clr Drug Dosing 48.0 ml/min 06/08/24 04:09 Est GFR ( Amer) 56.8 ml/min 06/08/24 04:09 Est GFR (Non-Af Amer) 49.0 ml/min 06/08/24 04:09 BUN/Creatinine Ratio 11.6 (10-20) 06/08/24 04:09 Glucose 101 mg/dl (70-99(Fasting)) H 06/08/24 04:09 POC Glucose (other) 104 mg/dl (70-99) H 06/06/24 16:53 Calcium 9.0 mg/dl (8.6-10.3) 06/08/24 04:09 POC Ioniz Calcium [place] 1.13 mmol/l (1.12-1.32) 06/06/24 16:53 Phosphorus 3.8 mg/dl (2.5-4.9) 06/08/24 04:09 Magnesium 1.8 mg/dl (1.7-2.4) 06/08/24 04:09 Total Bilirubin 0.6 mg/dl (0.2-1.0) 06/07/24 06:09 AST 15 U/L (13-39) 06/07/24 06:09 ALT 11 U/L (7-52) 06/07/24 06:09 Alkaline Phosphatase 79 U/L (34-104) 06/07/24 06:09 Troponin I High Sens 11.9 pg/ml (0-14) 06/07/24 06:52 Total Protein 6.7 gm/dl (6.0-8.3) 06/07/24 06:09 Albumin 3.8 gm/dl (3.4-5.0) 06/07/24 06:09 Globulin 2.9 gm/dl (2.5-4.0) 06/07/24 06:09 Albumin/Globulin Ratio 1.3 (0.9-2) 06/07/24 06:09 Lipase 48 U/L (11-82) 06/06/24 16:45 Impressions Chest CTA 06/06/24 16:04 CT ANGIOGRAM OF THE CHEST CLINICAL HISTORY: Chest pain. COMPARISON STUDY: Chest x-ray dated 06/06/2024. TECHNIQUE: Following the IV administration of 120 cc of Optiray 320, CT angiogram of the chest was performed from the upper abdomen to the thoracic inlet utilizing the pulmonary embolus protocol. Images are reviewed in the axial, sagittal, and coronal planes. 3-D MIPS images are created and assessed. IV contrast was administered without complication. A dose lowering technique was utilized adhering to the principles of ALARA. The examination is degraded by motion artifact. CT DOSE: 780.56 mGy.cm FINDINGS: Thyroid: Imaged portions of the thyroid gland are normal in size and attenuation. Thoracic aorta: There is atherosclerotic calcification of the thoracic aorta, which is normal in caliber and demonstrates standard 3-vessel arch anatomy. No dissection is seen. Pulmonary vasculature: The pulmonary trunk is normal in caliber. There are segmental and subsegmental pulmonary emboli within branches of the right lower lobe pulmonary artery. There may also be a small peripheral pulmonary embolus within a branch of the right middle lobe pulmonary artery. This is suboptimally assessed due to motion artifact. Segmental and subsegmental pulmonary emboli are seen within branches of the left upper lobe pulmonary artery. Heart: The patient is status post midline sternotomy. The heart is enlarged noting trace pericardial effusion. The coronary arteries are densely calcified. Lungs and pleural spaces: Evaluation of the lung parenchyma is degraded by motion artifact. There is no airspace consolidation typical for pneumonia or pleural effusion. The trachea and central airways appear clear. Foci of subsegmental atelectasis are noted at both lung bases. Mediastinum: There is no mediastinal lymphadenopathy. [place]: Clear. Axillae: There is no axillary lymphadenopathy. Upper abdomen: Partially visualized upper abdominal viscera is within normal limits. Skeletal structures: The skeletal structures are osteopenic. Degenerative change is noted in the thoracic spine. No lytic or blastic bony lesions are seen. IMPRESSION: 1. Bilateral segmental and subsegmental pulmonary emboli as detailed above. 2. Cardiomegaly. 3. No airspace consolidation or pleural effusion is identified. 4. Additional findings as above. ACT 112: Negative or not required by law. Electronically signed by: Roberto Ryan M.D. 06/06/2024 5:14 PM Chest X-Ray 06/06/24 16:04 SINGLE VIEW CHEST CLINICAL HISTORY: Atypical chest pain FINDINGS: An AP, portable, upright chest radiograph is compared to study dated 05/11/2024. The patient is status post midline sternotomy. The heart is enlarged. Atherosclerotic calcification of the thoracic aorta. The pulmonary vasculature is noncongested. Chronic interstitial thickening is similar to previous. There are low lung volumes with bibasilar scarring/atelectasis. No airspace consolidation or pleural effusion is identified. No pneumothorax is seen. The skeletal structures are osteopenic. The bony thorax is grossly intact. IMPRESSION: Cardiomegaly with no acute cardiopulmonary abnormality. ACT 112: Negative or not required by law. Electronically signed by: Roberto Ryan M.D. 06/06/2024 5:08 PM Venous Doppler Study 06/07/24 10:10 BILATERAL LOWER EXTREMITY VENOUS DOPPLER HISTORY: bilateral PE, r/o DVT COMPARISON STUDY: Bilateral lower extremity venous Doppler 08/11/2018. FINDINGS: There is normal compressibility, flow, and augmentation within the left lower extremity deep venous system. The right common femoral, superficial femoral, popliteal, anterior tibial veins are patent. There is thrombus within the right peroneal veins. IMPRESSION: 1. No DVT within the left lower extremity. 2. Right below the knee DVT involving the peroneal veins. ACT 112: Negative or not required by law. Electronically signed by: Diaz Rubio M.D. 06/07/2024 1:08 PM Pending Results Patient Have Any Pending Studies at Discharge: No Discharge Instructions Given to Patient (Per Discharging Provider) F/U with cardiology F/U with Dr. Jay at [facility] Check labs at hospital f/u Pt started on Apixaban Total Time Total Time Spent Total Time Spent (In Minutes): 40 minutes
[2024-06-08] MEDS: APIXABAN 5 MG TABLET PO SCH (16:35)
[2024-06-08 17:15] VITALS: BP 107/70
== END 2024-06-08 18:06 | disposition home or self-care (01) | DRG 176 ==
LOC: ED 15:36 → SUATTDRO 17:37 → 2S 17:37

== ENCOUNTER 2024-06-27 20:55 | Inpatient (IN) ==
--- OUTSIDE RECORDS SUMMARY | 2024-06-27 21:04 | External Medical Summary | Summary of Care ---
Author Name Unknown Organization [facility] Address [address] [place] [address] Phone [phone] Care Team Providers Care Radio Communication Coordinator Name Role Phone Jasmina Taylor MD Primary Care Provide r Reason for Visit * Reason Comments Hospital Follow-Up Encounter Details Date Type Department Care Team (Late st Contact Info) Description 06/24/2024 1:00 PM EDT Office Visit Cardiothoracic Surg [facility] [address], [place] [id number] Alfonso Jay MD [address], [place] [id number] S/P CABG (coronary artery bypass graft)* Allergies Active Allergy Reactions Criticality Noted Date Comments Baclofen 04/26/2022 Vertigo/extreme dizziness Codeine 02/18/2013 "deathly sick" Levofloxacin Nausea/vomiting 08/12/2018 Sulfa Antibiotics 08/25/2001 Rash documented as of this encounter (statuses as of 06/24/2024) Medications Medication Sig Dispensed Refills Start Date [...] do not renew 30 Tablet 05/20/2024 Active Furosemide 40 MG Oral Tablet (Lasix) Take 1 Tablet by mouth in the morning and 1 Tablet in the evening. For 1 week, then decrease to 1 tab daily until gone. Do not start before May 21, 2024. 35 Tablet 05/21/2024 Active Additional Information Patient taking differently:40 mg Oral BID (0900, 1600),Taking one tablet daily until gone, Reported on 06/18/2024 Potassium Chloride ER 10 MEQ Oral Tablet [...] for Wheezing. 15 g 5 05/25/2024 Active Magnesium 400 MG Oral Tablet Take 200 mg by mouth in the morning. Active Metoprolol Succinate ER 25 MG Oral Tablet Extended Release 24 Hour (toPROL XL) Take 1 Tablet by mouth in the morning and 1 Tablet before bedtime. 06/15/2024 Active Eliquis 5 MG Oral Tablet Take 1 Tablet by mouth in the morning and 1 Tablet before bedtime. 30 Tablet 06/21/2024 Active Apixaban 5 MG Oral Tablet (Eliquis) Take 1 Tablet by mouth in the morning and 1 Tablet before bedtime. 180 Tablet 06/24/2024 Active documented as of this encounter (statuses as of 06/24/2024) Active Problems Problem Noted Date Diagnosed Date Pulmonary hypertension 05/25/2024 S/P CABG x 3 05/25/2024 Postoperative atrial fibrillation 05/25/2024 Coronary artery disease 05/13/2024 Multiple vessel coronary [...] brochure given to patient at prior appointment. History of basal cell carcinoma documented as of this encounter (statuses as of 06/24/2024) Resolved Problems Problem Noted Date Diagnosed Date Resolved Date ACS (acute coronary syndrome) 05/14/2024 05/25/2024 Hypertensive urgency 05/14/2024 024 Multinodular goiter 08/13/2023 08/14/20 23 Nephrolithiasis 03/14/2021 [...] as of this encounter (statuses as of 06/24/2024) Immunizations Name Administration Dates Next Due COVID-19 mRNA, LNP-s, No Pre serve, 2-Dose Series ([employer]) 08/22/2021,12/14/2020,11/23/2020 COVID-19, LNP-s, No Preserve , Clive-sucrose, Ages 12+ (Pfizer) 02/13/2022 COVID-19, MRNA-LNP, 23-24, P F, 30 MCG/0.3 mL, 12 YRS AND ABOVE, IM ([employer]-Comirnaty) 08/23/2023 Covid-19, Mrna, Lnp-s, Pf, B ivalent, [...] lent, No Preserve, IM 07/09/2017,08/04/2016,08/06/2015 Seasonal Influenza, Trivalen t, (IIV3), with Preserv, (Fluzone) 07/07/2014,08/04/2013,07/10/2012,07/24,08/08/2010,07/12/2009,08/19/2008 ,08/26/2007,08/06/2006 Seasonal Influenza, Trivalen t, Adjuvanted, 65+ YRS, PF, (Fluad) 07/28/2019 TDAP, Age 7 and older, IM (Adacel) 07/14/2008 Varicella Zoster Vaccine (Adult) 02/19/2013 Zoster Vaccine Recombinant (Shingrix) 05/16/2021 ,03/14/2021 documented as of this encounter Social History Tobacco Use Types Packs/Day Years Used Date Smoking Tobacco: Never Smokeless Tobacco: Never Tobacco Cessation:Counseling Given: Not Answered Alcohol Use Standard Drinks/Week Comments No 0 [...] Sign Reading Time Taken Comments Blood Pressure 120/80 06/24/2024 12:34 PM EDT Pulse 76 06/24/2024 12:34 PM EDT Temperature - - Respiratory Rate - - Oxygen Saturation 97% 06/24/2024 12:34 PM EDT Inhaled Oxygen Concentration - - Weight 82 kg (180 lb 12.8 oz) 06/24/2024 12:34 P M EDT Height 163.8 cm (5' 4.5") 06/24/2024 12:34 PM ED T Body Mass Index 30.55 06/24/2024 12:34 PM EDT documented in this encounter Functional [...] this encounter Patient Instructions * Patient Instructions* Noé Luciano PA-C - 06/24/2024 1:16 PM EDT May stop lasix and potassium Stop amiodarone documented in this encounter Progress Notes * Noé Luciano PA-C - 06/24/2024 1:00 PM EDT Post-Op Visit 06/24/2024 Pre charting done by Noé Luciano PA-C in efficiency of seeing patient and updated by Noé Luciano PA-C Amairani Khan is a 73 year old female s/p . ,Amiodarone x 1 month for post-op atrial fibrillation (no coumadin as she was NSR for several days), Lasix and potassium x 1 month(BID lasix for [address] Jay), and Pepcid x 1 month. Shewas stable for discharge to home on 05/20/2024. , Operations & Procedures: CABG X 3 HERNANDEZ to LAD SVG to OM, PDA Complications: acute post op blood loss anemia atrial fibrillation Discharge date: 05/20/2024 Discharge destination: home EF: 55% PCP visit date: N, Cardiology visit date: Y, no changes ED/Admission visit: Yes right leg DVT and PE -currently on ASA and eliquis Social History Tobacco Use Smoking status: Never Smokeless tobacco: Never Vaping Use Vaping status: Never Used Substance Use Topics Alcohol use: No Drug use: No Social History Substance and Sexual Activity Drug Use No Having issues with hemorrhoids Cardiac Symptoms: no angina, no dyspnea, and some sternal discomfort at home Few shaky spells sugars have been running low- check s with his home monitoring device Physical Exam: Vitals: BP 120/80 (BP Site: Left Arm, BP Position: Sitting, BP Cuff Size: Regular) | Pulse 76 | Ht 1.638 m (5' 4.5") | Wt 82 kg (180 lb 12.8 oz) | SpO2 97% | BMI 30.55 kg/m | BSA 1.93 m Cardiac: regular rate and rhythm Lungs: Lungs are clear to auscultation. Edema: no edema present Incisions: healing well and sternum secure Current Outpatient Medications Medication Sig Dispense Refill Coenzyme Q10 10 MG Capsule Take 2 Capsules by mouth in the morning. Multiple Vitamins-Minerals (MULTIVITAMIN ADULTS) TABS Take 1 Tab by mouth daily. aspirin enteric coated 81 MG TBEC Take 1 Tablet by mouth in the morning. Pantoprazole Sodium 40 MG Oral Tablet Delayed [...] gone, do not renew 30 Tablet 0 Furosemide 40 MG Oral Tablet (Lasix) Take 1 Tablet by mouth in the morning and 1 Tablet in the evening. For 1 week, then decrease to 1 tab daily until gone. Do not start before May 21, 2024. (Patient taking differently: Take 1 Tablet by mouth in the morning and 1 Tablet in the evening. Taking onetablet daily until gone.) 35 Tablet 0 Potassium Chloride ER 10 [...] as needed for Wheezing. 15 g 5 Magnesium 400 MG Oral Tablet Take 200 mg by mouth in the morning. Metoprolol Succinate ER 25 MG Oral Tablet Extended Release 24 Hour (toPROL XL) Take 1 Tablet by mouth in the morning and 1 Tablet before bedtime. Eliquis 5 MG Oral Tablet Take 1 Tablet by mouth in the morning and 1 Tablet before bedtime. 30 Tablet 0 Hydrocortisone 2.5 % External Cream Apply topically to affected area 2 times a day. 28 g 0 No current facility-administered medications for this visit. Assessment/Plan: doing reasonably well Medications reviewed Lifting restrictions and sternal precautions reviewed. Enforce restrictions for full eight weeks from hospital discharge date Stop: Lasix, Potassium, and Pepcid and amiodarone RTC as needed Noé Luciano PA-C 06/24/2024 Cardiothoracic Surg [facility], [address] [id number] Patient still with some fatigue but improving Now on Eliquis for LE DVT/PE Appetite getting better Ambulating well No CV complaints Wounds look good, sternum stable and no LE edema Following with Cardiology (Dr Laboy) and PCP RTC on PRN basis Alfonso Jay MD Cardiac Surgery C documented in this encounter Nursing Notes * Ruthann Rojas MED ASSIST - 06/24/2024 12:31 PM EDT Patient was instructed to not get up on the exam table/exam chair until directed and assisted by their provider; patient is to remain seated in the chair/ wheelchair/ exam table/ exam chair for fall prevention and safety reasons. Patient is aware to have assistance to step down off exam table/exam chair with personnel. Patient voiced full comprehension of instructions. documented in this encounter Plan of Treatment Upcoming Encounters Date Type Department Care Team (Late st Contact Info) Description 06/25/2024 1:00 PM EDT Home Visit [facility], [facility] [address] [place] [address] Theron Hester PA-C [address] [place] [address] 08/05/2024 10:00 AM EDT Home Visit [facility], [facility] [address] [place] [address] Sarah Manuel, TAWANNA [address] [place] [address] 08/19/2024 3:00 PM EDT Office Visit Cardiology, [facility] [address] [place] [phone] German Laboy DO [address] [place] [address] 08/25/2024 1:40 PM EST Office Visit Family Medicine [address] [place] [phone] Jasmina Taylor MD [address] [place] [address] [place] [address] 10/05/2024 2:00 PM EST Office Visit Gastroenterology, [facility] [address] [place] [address] Martha Porter CRNP [address] [place] [address] 01/20/2025 3:20 PM EDT Office Visit Dermatology [address] [place] [address] Carolynn Dailey PA-C [address] [place] [address] [place] [address] 06/18/2025 10:00 AM EDT Nurse Only Ancillary Amilcar Vann [address] [place] [address] [place], Nurse [address] [place] [address] Scheduled Procedures Name Priority Associated Diagnoses Date/Ti me COLONOSCOPY FLEXIBLE PROXIMA L DIAGNOSTIC Recall Encounter for screening colonoscopy Health Maintenance Due Date Last Done Comments Sigmoidoscopy 1996 DTap/Tdap Vaccines (2 - Td or Tdap) 07/14/2018 07/14/2008 Fecal Occult Blood Test 09/16/2020 09/16/2019, 12/05 Cologuard 01/27/2021 01/27/2018 Influenza Vaccine (FLU shot) (#1) 2024 07/06/2023, 07/07/2022, 06/29/2021, Additional history exists Mammogram 11/13/2024 11/13/2023, 10/21, 11/06/2022, Additional history exists Albumin/Creatinine Ratio 12/11/2024 12/11/2021, 1212/2018 DXA Scan 02/27/2025 02/27/2022, 02/18, 01/21/2019, Additional history exists Adult Wellness Visit 06/17/2025 06/17/2024, 06/12/2023, 05/11/2022, Additional history exists Depression Screening 06/17/2025 06/17/2024 GFR 06/17/2025 06/17/2024, 05/21, 06/07/2024, Additional history exists Colonoscopy 03/15/2033 03/15/2023, 02/19, [...] encounter Medical Devices Implanted Type Area Senior [employer] Etl Developer Device Identifier Shelf Expiration Date Model / Serial / Lot Suture Steel 6 B&S19 M654g - [id number] Implanted:Qty: 7 on 05/15/2024 by Alfonso Jay MD at OR [facility] [place] N/A: Sternum JNJ : [employer] 08/20/2028 M654G / / [id number] Marker Coronary - [id number] Implanted:Qty: 1 on 05/15/2024 by Alfonso Jay MD at OR [facility] [place] N/A: Aorta [employer] 04/19/2027 AM-SD / / [id number] Description:attached to vein graft Marker Coronary - [id number] Implanted:Qty: 1 on 05/15/2024 by Alfonso Jay MD at OR [facility] [place] N/A: Aorta [employer] 03/20/2027 AM-SD / / [id number] Description:attached to vein graft documented as of this encounter Visit Diagnoses Diagnosis S/P CABG (coronary artery bypass graft)- Primary Postsurgical aortocoronary bypass status documented in [...] and were consensually agreed upon. Care Teams Radio Communication Coordinator Relationship Specialty Start Date End Date Jasmina Taylor MD [address] [place] [address] [place] [id number] PCP - General Family Medicine 05/07/24 documented as of this encounter
--- OUTSIDE RECORDS SUMMARY | 2024-06-27 21:04 | External Medical Summary | Summary of Care ---
Author Name Unknown Organization [facility] Address [address] [place] [facility] [place] [address] Phone [phone] Care Team Providers Care Table Machine Operator Name Role Phone Jasmina Taylor MD Primary Care Provide r Reason for Visit * Reason Comments Hospital Follow-Up Hosp DC 06/13/24 Encounter Details Date Type Department Care Team (Late st Contact Info) Description 06/18/2024 1:30 PM EDT Office Visit Cardiology, [facility] [address] [place] [address] German Laboy O, [address] [place] [address] S/P CABG x 3*; Hospital discharge follow-up; Dyslipidemia, goal LDL below 70; Frequent PVCs; HTN, goal below 140/90; Multiple subsegmental pulmonary emboli without acute cor pulmonale (HCC) Allergies Active Allergy Reactions Criticality Noted Date Comments Baclofen 04/26/2022 Vertigo/extreme dizziness Codeine 02/18/2013 "deathly sick" Levofloxacin Nausea/vomiting 08/12/2018 Sulfa Antibiotics 08/25/2001 Rash documented as of this encounter (statuses as of 06/18/2024) Medications Medication Sig Dispensed Refills Start Date [...] for Wheezing. 15 g 5 05/25/2024 Active Eliquis 5 MG Oral Tablet 1 Tablet in the morning and 1 Tablet before bedtime. 06/08/2024 Active Magnesium 400 MG Oral Tablet Take by mouth daily. Active Metoprolol Succinate ER 25 MG Oral Tablet Extended Release 24 Hour (toPROL XL) Take 1 Tablet by mouth in the morning and 1 Tablet before bedtime. 06/15/2024 Active documented as of this encounter (statuses as of 06/18/2024) Active Problems Problem Noted Date Diagnosed Date [...] as of this encounter (statuses as of 06/18/2024) Resolved Problems Problem Noted Date Diagnosed Date [...] as of this encounter (statuses as of 06/18/2024) Immunizations Name Administration Dates Next Due COVID-19 mRNA, LNP-s, No Pre serve, 2-Dose Series ([employer]) 08/22/2021,12/14/2020,11/23/2020 COVID-19, LNP-s, No Preserve , Clive-sucrose, Ages 12+ (Pfizer) 02/13/2022 COVID-19, MRNA-LNP, 23-24, P F, 30 MCG/0.3 mL, 12 YRS AND ABOVE, IM ([employer]-Comirnaty) 08/23/2023 Covid-19, Mrna, Lnp-s, Pf, B ivalent, [...] Sign Reading Time Taken Comments Blood Pressure 122/78 06/18/2024 1:30 PM EDT Pulse 80 06/18/2024 1:30 PM EDT Temperature - - Respiratory Rate 12 06/18/2024 1:30 PM EDT Oxygen Saturation - - Inhaled Oxygen Concentration - - Weight 81.6 kg (180 lb) 06/18/2024 1:30 PM EDT Height - - Body Mass Index 30.9 06/17/2024 9:17 AM EDT documented in this encounter Functional Status [...] as of this encounter Progress Notes * German Laboy, - 06/18/2024 1:43 PM EDT SUBJECTIVE: Patient returns today for follow up of recent CABG X 3 HERNANDEZ to LAD SVG to OM, PDA performed by Dr. Hoffmann 2023. Hospital course complicated by postoperative atrial fibrillation. Prescribed oral amiodarone at discharge. Discharged from [facility] in stable condition May 20, 2024. Presented to [facility] June 06, 2024 due to chest pain. Diagnosed with acute pulmonary embolism and prescribed oral anticoagulation Eliquis and discharged to home June 08, 2024. Presented to ER at [facility] June 11, 2024 due to palpitations and chills without fever. Diagnosed with symptomatic PVCs. Atenolol transition to metoprolol and she was prescribed magnesium supplementation. Symptoms improved and she was discharged to home June 14, 2024. Feeling better since most recent hospital discharge. Questioning whether she may take amiodarone and metoprolol together. Palpitations have resolved. Continues to report intermittent shakiness.Denies chest pain or unusual shortness of breath. Overall improving since surgery and recent hospitalizations. Tolerating medications listed below. Denies signs/symptoms of GI/ blood loss. ECG [facility] 2024: Sinus rhythm with premature ventricular complexes, left anterior fascicular block, poor R-wave progression, can not exclude age indeterminate anterior infarct. Nonspecific T-wave abnormality. Cardiac catheterization report May 13, 2024: Summary of Findings 95% proximal LAD 80% mid RCA 50% proximal OM2 Hemodynamics Rest Ao:106/70/87 Final Ao: 120/75/91 LV: 127/-1/5 2D echocardiogram report 2024: LVEF 60-65% Normal left ventricular wall motion. Mild tricuspid regurgitation. Findings do not suggest pulmonary hypertension. ROS: All others negative other than those noted in the HPI. Patient Active Problem List Diagnosis ADVANCE DIRECTIVE [...] right knee Hiatal hernia Coronary artery disease Multiple vessel coronary artery disease Pulmonary hypertension (HCC) S/P CABG x 3 Postoperative atrial fibrillation (HCC) History of basal cell carcinoma Social History Tobacco Use Smoking status: Never Smokeless tobacco: Never Vaping Use Vaping status: Never Used Substance Use Topics Alcohol use: No Drug use: No Review of patient's allergies indicates: Allergen Reactions Baclofen Vertigo/extreme dizziness Codeine "deathly sick" Levaquin [Levofloxacin] Nausea/vomiting Sulfa Antibiotics Rash Current Outpatient Medications Medication Sig Dispense Refill [...] as needed for Wheezing. 15 g 5 Eliquis 5 MG Oral Tablet 1 Tablet in the morning and 1 Tablet before bedtime. Magnesium 400 MG Oral Tablet Take by mouth daily. Metoprolol Succinate ER 25 MG Oral Tablet Extended Release 24 Hour (toPROL XL) Take 1 Tablet by mouth in the morning and 1 Tablet before bedtime. No current facility-administered medications for this visit. Lipid Panel Results: Results for orders placed or performed during the hospital encounter of 05/13/24 LIPID PANEL WITHOUT DIRECT LDL Result Value Ref Range Triglycerides 86 <=174 mg/dL Cholesterol 175 <200 mg/dL HDL Cholesterol 60 >49 mg/dL Non-HDL Cholesterol 115 <=159 mg/dL LDL Cholesterol 98 <=129 mg/dL Results for orders placed or performed in visit on 04/13/24 LIPID PANEL WITH DIRECT LDL IF TG IS HIGH Result Value Ref Range Triglycerides 170 <=174 mg/dL Cholesterol 207 (H) <200 mg/dL HDL Cholesterol 59 >49 mg/dL Non-HDL Cholesterol 148 <=159 mg/dL LDL Cholesterol 114 <=129 mg/dL Lab Results Component Value Date/Time TSH - [facility] 2.13 05/13/2024 06:53 PM TSH - [facility] 1.71 07/01/2023 01:58 PM TSH - [facility] 2.83 08/07/2019 09:34 AM TSH - [facility] 1.97 08/31/2014 12:20 PM TSH - [facility] 1.68 08/27/2001 08:36 AM CBC Results: Results for orders placed or performed in visit on 06/17/24 CBC Result Value Ref Range WBC 6.98 4.00 - 10.80 K/uL RBC 4.29 3.85 - 5.15 M/uL HGB 12.8 12.0 - 15.3 g/dL HCT 41.2 36.0 - 45.2 % MCV 96.0 81.5 - 97.5 fL MCH 29.8 27.0 - 34.0 pg MCHC 31.1 32.0 - 36.0 g/dL RDW 14.7 11.5 - 15.5 % PLT 256 140 - 400 K/uL MPV 11.0 6.6 - 11.1 fL nRBCs 0 <=0 /100 WBCs OBJECTIVE/PHYSICAL EXAMINATION: BP 122/78 | Pulse 80 | Resp 12 | Wt 81.6 kg (180 lb) | BMI 30.90 kg/m | BSA 1.92 m General: NAD, AAO x3, well nourished. HEENT: Normocephalic. Atraumatic. Conjunctiva pink, no scleral icterus. No carotid bruits, the carotid upstrokes are brisk. No JVD. No HJR Heart: Regular normal S-1 and S-2 no S-3 or S-4 gallop. No murmurs or rubs appreciated. PMI is not displaced. No RV heave.Lungs: Clear bilateral without rales , rhonchi, or wheeze. Abdomen: Normal bowel sounds. Soft. Nontender. No masses or organomegaly. No abdominal bruits. Extremities: No clubbing, cyanosis, or edema.Pulses: radial=2/4, Dorsalis pedis =2/4, posterior tibial=2/4. Neuro: No focal deficits. ASSESSMENT: 1. 74-year-old female status post recent CABG X 3 HERNANDEZ to LAD SVG to OM, PDA performed by Dr. Hoffmann 2023. -obstructive CAD discovered in the setting of exertional angina/abnormal Lexiscan nuclear stress testing. 2. Pulmonary embolus diagnosed 06/06/2024 -provoked in setting post-op immobilization 3. Postoperative paroxysmal atrial fibrillation without recurrence 4. Symptomatic premature ventricular complexes -palpitations controlled with addition of magnesium supplementation 5. Dyslipidemia goal LDL less than 70 mg/dL PLAN: Basic metabolic panel Magnesium Lipid panel with direct ldl if tg is high Reduce magnesium oxide to 200 mg daily. Repeat basic metabolic panel and serum magnesium level in 4 weeks. Continue oral anticoagulation for 6 months for treatment of provoked pulmonary embolus. Continue other cardiovascular medications including metoprolol succinate, amiodarone, furosemide, potassium supplementation, pravastatin, and low-dose aspirin. Follow up with Cardiothoracic surgery next week. Cardiac rehab scheduled. Follow Up: Return in about 1 month (around 07/19/2024). I spent a total of 40-54 minutes (exact time 41 mins) on the date of service in preparation, delivery, and documentation of the care provided to Amairani Khan excluding any time spent in the performance of separately billed services or time spent by another provider/QHP. German Laboy DO, [facility] Associate Cardiology - Kriss Teague documented in this encounter Nursing Notes * Danika Milan CMA - 06/18/2024 1:21 PM EDT Chief Complaint Patient presents with Hospital Follow-Up Hosp [place] 06/13/24 Examination Room: 13 Name: Amairani Khan Date of : (1950). Reason for Visit: Hospital DC Interim Hospitalization(s): [facility] 06/13 Problems/Concerns: Some soreness at incision cite but no other complaints. Reports on 06/15 she feltshaky and took bp and it was elevated at 155/106. Chest Pain/SOB: Denies [facility] Discussed: Yes [facility] is a way you can talk to your provider online through e-mail. Would you like to sign up? I can activate it for you? ALREADY ACTIVE Patient was instructed to not get up on the exam table until directed and assisted by their provider; patient is to remain seated in the chair/ wheelchair/ exam table for fall prevention and safety reasons. Patient is aware to have assistance to step down off exam table with personnel. Patient voiced full comprehension of instructions. documented in this encounter Plan of Treatment Upcoming Encounters Date Type Department Care Team (Late st Contact Info) Description 06/24/2024 1:00 PM EDT Office Visit Cardiothoracic Surg [facility] [address] [place] [address] Alfonso Jay MD [address] [place] [address] 06/25/2024 1:00 PM EDT [facility] [address] [address] Theron Hester PA-C [address] [place] [address] 08/05/2024 10:00 AM EDT [facility] Visit [facility], [facility] [address] [place] [address] Sarah Manuel, TAWANNA [address] [place] [address] 08/19/2024 3:00 PM EDT Office Visit [facility]iology, [facility] [address] [facility] [place] [address] German Laboy DO [address] [address] 08/25/2024 1:40 PM EST Office Visit Family Medicine [address] [place] [phone] Jasmina Taylor MD [address] [place] [address] [place] [address] 10/05/2024 2:00 PM EST Office Visit [facility]enterology, [facility] [address] [facility] [place] [address] Martha Porter CRNP [address] [facility] [place] [address] 01/20/2025 3:20 PM EDT Office Visit Dermatology [address] [place] [address] Carolynn Dailey PA-C [address] [place] [address] [place] [address] 06/18/2025 10:00 AM EDT Nurse Only Ancillary [address] [place] [address] [place], Nurse [address] [place] [address] Scheduled Orders Name Type Priority Associated Diagnoses Orde r Schedule BASIC METABOLIC PANEL Lab Routine S/P CABG x 3 Expected: 07/19/2024 (Approximate), Expires: 06/18/2025 MAGNESIUM Lab Routine S/P CABG x 3 Expected: 07/19/2024, Expires: 06/18/2025 LIPID PANEL WITH DIRECT LDL IF TG IS HIGH Lab Routine S/P CABG x 3 Expected: 07/19/2024 (Approximate), Expires: 06/18/2025 Scheduled Procedures Name Priority Associated Diagnoses Date/Ti [...] this encounter Medical Devices Implanted Type Area Burrer Operator Device Identifier Shelf Expiration Date Model / Serial / Lot Suture Steel 6 B&S19 M654g - [id number] Implanted:Qty: 7 on 05/15/2024 by Alfonso Jay MD at OR [facility] N/A: Sternum JNJ : [employer] 08/20/2028 M654G / / TMMAST Marker Coronary - [id number] Implanted:Qty: 1 on 05/15/2024 by Alfonso Jay MD at OR [facility] N/A: Aorta [employer] 04/19/2027 [facility] / / [id number] Description:attached to vein graft Marker Coronary - [id number] Implanted:Qty: 1 on 05/15/2024 by Alfonso Jay MD at OR [facility] N/A: Aorta [employer] 03/20/2027 [facility] / / [id number] Description:attached to vein graft documented as of this encounter Visit Diagnoses Diagnosis S/P CABG x 3- Primary Postsurgical aortocoronary bypass status Hospital discharge follow-up Other follow-up examination Dyslipidemia, goal LDL below 70 Other and unspecified hyperlipidemia Frequent PVCs Other premature beats HTN, goal below 140/90 Unspecified essential hypertension Multiple subsegmental pulmonary emboli without acute cor pulmonale (HCC) documented in this encounter Advance Directives * [...] and were consensually agreed upon. Care Teams Table Machine Operator Relationship Specialty Start Date End Date Jasmina Taylor MD [address] [place] [address] [place] [address] PCP - General Family Medicine 05/07/24 documented as of this encounter
--- OUTSIDE RECORDS SUMMARY | 2024-06-27 21:04 | External Medical Summary | Summary of Care ---
Author Name Unknown Organization [facility] Address [address] [place] [address] Phone [phone] Care Team Providers Care Mosaicist Name Role Phone Jasmina Taylor MD Primary Care Provide r Reason for Visit * Reason Onset Date Comments Advice 06/17/[address] Taylor Encounter Details Date Type Department Care Team (Late st Contact Info) Description 06/17/2024 Telephone Family [address] [phone] Jasmina Taylor MD [address] [place] [address] [place] [address] Advice (Rev w Dr. Taylor) Allergies Active Allergy Reactions Criticality Noted Date [...] Oral Tablet Take by mouth daily. Active documented as of this encounter (statuses [...] mRNA, LNP-s, No Pre serve, 2-Dose Series ([employer]) 08/22/2021,12/14/2020,11/23/2020 COVID-19, LNP-s, No Preserve , Clive-sucrose, Ages 12+ (Pfizer) 02/13/2022 COVID-19, MRNA-LNP, 23-24, P F, 30 MCG/0.3 mL, 12 YRS AND ABOVE, IM ([employer]Comir[employer]) 08/23/2023 Covid-19, Mrna, Lnp-s, Pf, B ivalent, 30 Mcg, IM, 12 yrs and above ([employer]) 07/24/2022 Pneumococcal Conjugate Vacc, 13 Valent (Prevnar) 11/27/2016 Pneumococcal Polysaccharide PPV23 (Pneumovax) 01/22/2019,11/09/2013 Season Influenza, Quad, PF, Adjuvanted, 65+ Yrs, IM (FLUAD) 07/09/2020 Seasonal Influenza, PF, 6 M & above, IM , (FluLaval or Fluzone) 07/15/2018 Seasonal Influenza, Quadriva lent Hd (Fluzone Hd) 07/06/2023,07/07/2022,06/29/2021 Seasonal Influenza, Quadriva lent, No Preserve, IM 07/09/2017,08/04/2016,08/06/2015 Seasonal Influenza, Trivalen t, (IIV3), with Preserv, (Fluzone) 07/07/2014,08/04/2013,07/10/2012,07/24,08/08/2010,07/12/2009,08/19/2008 ,08/26/2007,08/06/2006,08/21/2005 Seasonal Influenza, Trivalen t, Adjuvanted, 65+ YRS, [...] encounter Miscellaneous Notes * Telephone Encounter - Unique James RN - 06/18/2024 3:08 PM EDT MY G was read. Last read by Amairani Khan "Xin" at 1:41 PM on 06/18/2024. * Telephone Encounter - Unique James RN - 06/18/2024 12:36 PM EDT Left message for the patient to call the office and myG message sent Reason for Call: Advice (Rev arin Taylor) Contact: Violetta Hassan Contact Type: Advice Provider In-Basket: Yes Outcome: see myG note Face to face time spent with Patient (minutes): 0 Total Time including non face to face (minutes): 20 * Telephone Encounter - Unique James RN - 06/17/2024 3:25 PM EDT Left message for the patient to call the office. * Telephone Encounter - Jasmina Taylor MD - 06/17/2024 3:12 PM EDT They are OK to take together. * Telephone Encounter - Unique James RN - 06/17/2024 3:07 PM EDT Patient did not mention this at her appointment, I did review up to Date and no interactions identified for Magnesium Oxide 400mg and Amiodarone? I will message Dr. Taylor to see if there is any concerns. * Telephone Encounter - Coco Aleman OSA - 06/17/2024 9:10 AM EDT Pt's HH nurse called to inform clinic, pt has been placed on Magnesium and Metoprolol from her latest hospital stay. Nurse stated there is a potential severe interaction between the metoprolol and her current medication, Amiodarone HCl 200 MG Oral Tablet (Cordarone). Pt's vitals are in good standing as of this morning. Nurse is requesting this to be addressed during her AWV today in which pt is currently in. documented in this encounter Plan of Treatment Upcoming Encounters Date Type Department Care Team (Late st Contact Info) Description 06/24/2024 1:00 PM EDT Office Visit Cardiothoracic Surg [facility] [address] [place] [address] Alfonso Jay MD [address] [place] [address] 06/25/2024 1:00 PM EDT [facility] [address] [place] [address] Theron Hester PA-C [address] [place] [address] 08/05/2024 10:00 AM EDT [facility] Visit [facility] [place] [address] [place] [address] Sarah Manuel, TAWANNA [address] [place] [address] 08/19/2024 3:00 PM EDT Office Visit Cardiology, [facility] [address] [place] [address] German Laboy O, [address] [place] [address] 08/25/2024 1:40 PM EST Office Visit Family Medicine [address] [place] [phone] Jasmina Taylor MD [address] [place] [address] [place] [address] 10/05/2024 2:00 PM EST Office Visit Gastroenterology, [facility] [address] [place] [address] Martha Porter CRNP [address] [place] [address] 01/20/2025 3:20 PM EDT Office Visit Dermatology [address] [place] [address] Carolynn Dailey PA-C [address] [place] [address] [place] [address] 06/18/2025 10:00 AM EDT Nurse Only Ancillary [address] [place] [address] [place], Nurse [facility] [address] [place] [address] [place] [address] Scheduled Procedures Name Priority Associated Diagnoses Date/Ti [...] this encounter Medical Devices Implanted Type Area Face Man Device Identifier Shelf Expiration Date Model / Serial / Lot Suture Steel 6 B&S19 M654g - [id number] Implanted:Qty: 7 on 05/15/2024 by Alfonso Jay MD at [place] [facility] N/A: Sternum JNJ : [employer] 08/20/2028 M654G / / TM[employer] Marker Coronary - [id number] Implanted:Qty: 1 on 05/15/2024 by Alfonso Jay MD at OR [facility] N/A: Aorta [employer] 04/19/2027 [facility] / / [id number] Description:attached to vein graft Marker Coronary - [id number] Implanted:Qty: 1 on 05/15/2024 by Alfonso Jay MD at OR [facility] N/A: Aorta [employer] 03/20/2027 [facility] / / [id number] Description:attached to vein graft documented as of [...] and were consensually agreed upon. Care Teams Mosaicist Relationship Specialty Start Date End Date Jasmina Taylor MD [address] [place] [address] [place] [address] PCP - General Family Medicine 05/07/24 documented as of this encounter
--- OUTSIDE RECORDS SUMMARY | 2024-06-27 21:05 | External Medical Summary | Summary of Care ---
Author Name Unknown Organization [facility] Address [address] [place] [address] Phone [phone] Care Team Providers Care Supervisor Laboratory Animal Facility Name Role Phone Jasmina Taylor MD Primary Care Provide r Reason for Visit * Reason Onset Date Comments Advice 06/17/[address] Taylor Encounter Details Date Type Department Care Team (Late st Contact Info) Description 06/17/2024 Telephone Family [address] [phone] Jasmina Taylor MD [address] [place] [address] [place] [address] Advice (Rev w Dr. Taylor) Allergies Active Allergy Reactions Criticality Noted Date Comments Baclofen 04/26/2022 Vertigo/extreme dizziness Codeine 02/18/2013 "deathly sick" Levofloxacin Nausea/vomiting 08/12/2018 Sulfa Antibiotics 08/25/2001 Rash documented as of this encounter (statuses as of 06/17/2024) Medications Medication Sig Dispensed Refills Start Date [...] as of this encounter (statuses as of 06/17/2024) Active Problems Problem Noted Date Diagnosed Date [...] as of this encounter (statuses as of 06/17/2024) Resolved Problems Problem Noted Date Diagnosed Date [...] as of this encounter (statuses as of 06/17/2024) Immunizations Name Administration Dates Next Due COVID-19 mRNA, LNP-s, No Pre serve, 2-Dose Series ([employer]) 08/22/2021,12/14/2020,11/23/2020 COVID-19, LNP-s, No Preserve , Clive-sucrose, Ages 12+ (Pfizer) 02/13/2022 COVID-19, MRNA-LNP, 23-24, P F, 30 MCG/0.3 mL, 12 YRS AND ABOVE, IM ([facility] 08/23/2023 Covid-19, Mrna, Lnp-s, Pf, B ivalent, 30 Mcg, IM, 12 yrs and above ([employer]) 07/24/2022 Pneumococcal Conjugate Vacc, 13 Valent (Prevnar) [...] Description 06/18/2024 1:30 PM EDT [facility] [address] [place] [address] German Laboy, [address] [place] [address] 06/24/2024 1:00 PM EDT Office Visit Cardiothoracic Surg [facility] [address] [place] [address] Alfonso Jay MD [address] [place] [address] 06/25/2024 1:00 PM EDT [facility] [address] [place] [address] Theron Hester PA-C [address] [place] [address] 07/02/2024 9:30 AM EDT Office Visit Cardiology [address] [place] [address] Sarah Antoine PA-C [address] [place] [address] 08/05/2024 10:00 AM EDT [facility] 132 [facility] [place] [address] Sarah Manuel, RN [address] [place] [address] 08/25/2024 1:40 PM EST Office Visit Family Medicine [address] [place] [phone] Jasmina Taylor MD [address] [place] [address] [place] [address] 10/05/2024 2:00 PM EST Office Visit Gastroenterology, [facility] 132 [facility] [place] [address] Martha Porter CRNP [address] [facility] [place] [address] 01/20/2025 3:20 PM EDT Office Visit Dermatology [address] [place] [address] Carolynn Dailey PA-C [address] [place] [address] [place] [address] 06/18/2025 10:00 AM EDT Nurse Only Ancillary [address] [place] [address] [place], Nurse Annual [address] [place] [address] Scheduled Procedures Name Priority Associated Diagnoses Date/Ti [...] 02/27/2022, 02/18, 01/21/2019, Additional history exists GFR 06/08/2025 06/08/2024, 05/21, 05/20/2024, Additional history exists Adult Wellness Visit 06/17/2025 06/17/2024, 06/12/2023, 05/11/2022, Additional history exists Depression Screening 06/17/2025 06/17/2024 Colonoscopy 03/15/2033 03/15/2023, 02/19, 08/20/2018, Additional history [...] this encounter Medical Devices Implanted Type Area Educational Aide Device Identifier Shelf Expiration Date Model / Serial / Lot Suture Steel 6 B&S19 M654g - [id number] Implanted:Qty: 7 on 05/15/2024 by Alfonso Jay MD at [place] [facility] [place]A: Sternum JNJ : [employer] 08/20/2028 M654G / / TMMAST Marker Coronary - [id number] Implanted:Qty: 1 on 05/15/2024 by Alfonso Jay MD [place] [facility] [place] N/A: Aorta [employer] 04/19/2027 [facility] / / [id number] Description:attached to vein graft Marker Coronary - [id number] Implanted:Qty: 1 on 05/15/2024 by Alfonso Jay MD at [facility] N/A: Aorta [employer] 03/20/2027 [facility] / / [id number] Description:attached to vein graft documented as of [...] and were consensually agreed upon. Care Teams Supervisor Laboratory Animal Facility Relationship Specialty Start Date End Date Jasmina Taylor MD [address] [place] [address] [place] [address] PCP - General Family Medicine 05/07/24 documented as of this encounter
--- OUTSIDE RECORDS SUMMARY | 2024-06-27 21:05 | External Medical Summary | Summary of Care ---
Author Name Unknown Organization [facility] Address [address] [place] [address] Phone [phone] Care Team Providers Care Brand Mgr Name Role Phone Jasmina Taylor MD Primary Care Provide r Reason for Visit * Reason Onset Date Comments Advice 06/17/[address] Taylor Encounter Details Date Type Department Care Team (Late st Contact Info) Description 06/17/2024 Telephone Family [address] [phone] Jasmina Taylor MD [address] [place] [address] [place] [address] Advice (Rev w Dr. Taylor) Allergies [...] mRNA, LNP-s, No Pre serve, 2-Dose Series ([employer]) 08/22/2021,12/14/2020,11/23/2020 COVID-19, LNP-s, No Preserve , Clive-sucrose, Ages 12+ (Pfizer) 02/13/2022 COVID-19, MRNA-LNP, 23-24, P F, 30 MCG/0.3 mL, 12 YRS AND ABOVE, IM ([facility]) 08/23/2023 Covid-19, Mrna, Lnp-s, Pf, B ivalent, 30 Mcg, IM, 12 yrs and above ([employer]) 07/24/2022 Pneumococcal Conjugate Vacc, 13 Valent (Prevnar) [...] 06/18/2024 1:30 PM EDT Office Visit Cardiology, [facility] 132 [facility] [place] [address] German Laboy, 132 [facility] [place] [address] 06/24/2024 1:00 PM EDT Office Visit Cardiothoracic Surg [facility] [place], [place] [address] [place] [address] Alfonso Jay MD [address] [facility] [place] [address] 06/25/2024 1:00 PM EDT [facility] [place] [address] [place] [address] Theron Hester PA-C [address] [place] [address] 07/02/2024 9:30 AM EDT Office Visit Cardiology [address] [place] [address] Sarah Antoine PA-C [address] [place] [address] 08/05/2024 10:00 AM EDT [facility], [facility] [address] [place] [address] Sarah Manuel RN [address] [place] [address] 08/25/2024 1:40 PM EST Office Visit Family Medicine [address] [place] [phone] Jasmina Taylor MD [address] [place] [address] [place] [address] 10/05/2024 2:00 PM EST Office Visit Gastroenterology, [facility] [address] [place] [address] Martha Porter CRNP [address] [place] [address] 01/20/2025 3:20 PM EDT Office Visit Dermatology [address] [place] [address] Carolynn Dailey PA-C [address] [place] [address] [place] [address] 06/18/2025 10:00 AM EDT Nurse Only Ancillary [address] [place] [address] [place] Nurse [facility] [address] [place] [address] [place] [address] Scheduled Procedures Name Priority Associated Diagnoses Date/Ti [...] this encounter Medical Devices Implanted Type Area Live In Housekeeper Device Identifier Shelf Expiration Date Model / Serial / Lot Suture Steel 6 B&S19 M654g - [id number] Implanted:Qty: 7 on 05/15/2024 by Alfonso Jay MD at [place] [facility] [place] [place] N/A: Sternum JNJ : [employer] 08/20/2028 M654G / / TMMAST Marker Coronary - [id number] Implanted:Qty: 1 on 05/15/2024 by Alfonso Jay MD at [place] [facility] [place] [place] N/A: Aorta [employer] 04/19/2027 [facility] / / [id number] Description:attached to vein graft Marker Coronary - [id number] Implanted:Qty: 1 on 05/15/2024 by Alfonso Jay MD at [place] [facility] [place] [place] N/A: Aorta [employer] 03/20/2027 [facility] / / [id number] Description:attached to vein graft documented as of [...] and were consensually agreed upon. Care Teams Brand Mgr Relationship Specialty Start Date End Date Jasmina Taylor MD NPI: [id number] [place] [address] [place] [address] PCP - General Family Medicine 05/07/24 documented as of this encounter
--- OUTSIDE RECORDS SUMMARY | 2024-06-27 21:05 | External Medical Summary ---
Author Name Unknown Address Unknown Organization K01:[facility] [place] - [address] [facility] [address] [place] [address] Laboratory Report Ordering Provider Test Date Status ERIK FATIMA 06/17/2024 10:17:30 Final Observation Date Value Abnormality Reference (Units ) Status BUN 06/17/2024 10:17:30 15 6-20 (mg/dL) Final Creatinine 06/17/2024 10:17:30 0.9 0.5-1.0 (mg/dL) Final Glomerular filtration rate/1.73 sq M.predicted [Volume Rate/Area] in Serum, Plasma or Blood by Creatinine-based formula (CKD-EPI) 06/17/2024 10:17:30 67 >=60 (mL/min) Final eGFR is calculated based on the CKD-EPI 2020 equation. Sodium 06/17/2024 10:17:30 141 135-146 (m mol/L) Final Potassium 06/17/2024 10:17:30 4.5 3.5-5.1 (m mol/L) Final Cl 06/17/2024 10:17:30 103 98-107 (mm ol/L) Final CO2 06/17/2024 10:17:30 24 22-32 (mmo l/L) Final Anion gap 06/17/2024 10:17:30 14 7-15 (mmol /L) Final Glucose 06/17/2024 10:17:30 98 70-120 (mg /dL) Final Calcium 06/17/2024 10:17:30 9.8 8.4-10.2 ( mg/dL) Final Performing Location [facility] [place] - [address] [place] [address]
--- OUTSIDE RECORDS SUMMARY | 2024-06-27 21:05 | External Medical Summary | Summary of Care ---
Author Name Unknown Organization [facility] Address [address] [place] [facility] [place] [address] Phone [phone] Care Team Providers Care Template Maker Name Role Phone Jasmina Taylor MD Primary Care Provide r Encounter Details Date Type Department Care Team (Late st Contact Info) Description 06/17/2024 Orders Only PATIENT PORTAL DO NOT DELETE THIS DEPT USED BY [place] [id number] Allergies Active Allergy Reactions Criticality Noted Date [...] mRNA, LNP-s, No Pre serve, 2-Dose Series ([employer]) 08/22/2021,12/14/2020,11/23/2020 COVID-19, LNP-s, No Preserve , Clive-sucrose, Ages 12+ ([employer]) 02/13/2022 COVID-19, MRNA-LNP, 23-24, P F, 30 MCG/0.3 mL, 12 YRS AND ABOVE, IM (rumr: [facility]) 08/23/2023 Covid-19, Mrna, Lnp-s, Pf, B ivalent, 30 Mcg, IM, 12 yrs and above ([employer]) 07/24/2022 Pneumococcal Conjugate Vacc, 13 Valent (Prevnar) [...] 06/17/2024 9:00 AM EDT Nurse Only Ancillary [address] [place] [address] [place], Nurse [address] [place] [address] 06/18/2024 1:30 PM EDT Office Visit Cardiology, [facility] [address] [place] [address] German Laboy, [address] [place] [address] 06/24/2024 1:00 PM EDT Office Visit Cardiothoracic Surg [facility] [address] [place] [place] [address] Alfonso Jay MD [address] [place] [address] 06/25/2024 1:00 PM EDT [facility] [address] [place] [address] Theron Hester PA-C [address] [place] [address] 07/02/2024 9:30 AM EDT Office Visit Cardiology [address] [place] [address] Sarah Antoine PA-C [address] [place] [address] 08/05/2024 10:00 AM EDT [facility] Visit [facility] [address] [place] [address] Sarah Manuel, [facility] [place] [address] 08/25/2024 1:40 PM EST Office Visit Family Medicine [address] [place] [phone] Jasmina Taylor MD [address] [place] [address] [place] [address] 10/05/2024 2:00 PM EST Office Visit Gastroenterology, [facility] [address] [place] [address] Martha Porter CRNP [address] [place] [address] Scheduled Procedures Name Priority Associated Diagnoses Date/Ti [...] 06/08/2025 06/08/2024, 05/21, 05/20/2024, Additional history exists Colonoscopy 03/15/2033 03/15/2023, 02/19, [...] encounter Medical Devices Implanted Type Area Customer Sales Advisor Device Identifier Shelf Expiration Date Model / Serial / Lot Suture Steel 6 B&S19 M654g - [id number] Implanted:Qty: 7 on 05/15/2024 by Alfonso Jay MD [place] [facility] [place]A: Sternum JNJ : [employer] 08/20/2028 M654G / / TMMAST Marker Coronary - [id number] Implanted:Qty: 1 on 05/15/2024 by Alfonso Jay MD [place] [facility] [place] N/A: Aorta [employer] 04/19/2027 [facility] / / [id number] Description:attached to vein graft Marker Coronary - [id number] Implanted:Qty: 1 on 05/15/2024 by Alfonso Jay MD [place] [facility] N/A: Aorta [employer] 03/20/2027 [facility] / / [id number] Description:attached to vein graft documented as of [...] and were consensually agreed upon. Care Teams Template Maker Relationship Specialty Start Date End Date Jasmina Taylor MD [address] [place] [address] [place] [address] PCP - General Family Medicine 05/07/24 documented as of this encounter
--- OUTSIDE RECORDS SUMMARY | 2024-06-27 21:05 | External Medical Summary | Summary of Care ---
Author Name Unknown Organization [facility] Address [address] [place] [facility] [place] [address] Phone [phone] Care Team Providers Care Postdoctoral Scientist Name Role Phone Jasmina Taylor MD Primary Care Provide r Reason for Visit * Reason Comments [facility]: Enrollment Encounter Details Date Type Department Care Team (Late st Contact Info) Description 06/16/2024 12:30 PM EDT Home Visit [facility], [facility] [address] [facility] [place] [address] Sarah Manuel, RN [address] [facility] [place] [address] Advanced care planning/counseling discussion* Allergies Active Allergy Reactions Criticality Noted Date Comments Baclofen 04/26/2022 Vertigo/extreme dizziness Codeine 02/18/2013 "deathly sick" Levofloxacin Nausea/vomiting 08/12/2018 Sulfa Antibiotics 08/25/2001 Rash documented as of this encounter (statuses as of 06/16/2024) Medications Medication Sig Dispensed Refills Start Date End Date Status Coenzyme Q10 10 MG Capsule Take 2 Capsules by mouth in the morning. 02/12/2019 Active Multiple Vitamins-Minerals (MULTIVITAMIN ADULTS) TABS Take 1 Tab by mouth daily. Active aspirin enteric coated 81 MG TBEC Take 1 Tablet by mouth in the morning. 05/24/2020 Active Hydrocortisone 2.5 % External CreamIndications:H emorrhoids, unspecified hemorrhoid type Apply topically to affected area 2 times a day. 28 g 01/14/2023 Active Pantoprazole Sodium 40 MG Oral Tablet Delayed Release (Protonix)Indicati ons:Gastroesophage al reflux disease without esophagitis Take 1 Tablet [...] Levalbuterol Tartrate 45 MCG/ACT Inhalation Aerosol (Xopenex HFA)Indications:Mi ld intermittent asthma without complication Inhale 2 Puffs by mouth every 4 hours as needed for Wheezing. 15 g 5 05/25/2024 Active Eliquis 5 MG Oral Tablet 1 Tablet in the morning and 1 Tablet before bedtime. 06/08/2024 Active Magnesium 400 MG Oral Tablet Take by mouth daily. Active Atenolol 25 MG Oral Tablet (Tenormin)Indicati ons:HTN, goal below 140/90 Take 1 Tablet by mouth in the morning. 30 Tablet 1 05/20/2024 4 Discontinue d(Medicatio n List Clean Up) documented as of this encounter (statuses as of 06/16/2024) Active Problems Problem Noted Date Diagnosed Date [...] as of this encounter (statuses as of 06/16/2024) Resolved Problems Problem Noted Date Diagnosed Date [...] as of this encounter (statuses as of 06/16/2024) Immunizations Name Administration Dates Next Due COVID-19 mRNA, LNP-s, No Pre serve, 2-Dose Series (Toptal) 08/22/2021,12/14/2020,11/23/2020 COVID-19, LNP-s, No Preserve , Clive-sucrose, Ages 12+ (Pfizer) 02/13/2022 COVID-19, MRNA-LNP, 23-24, P F, 30 MCG/0.3 mL, 12 YRS AND ABOVE, IM [facility] 08/23/2023 Covid-19, Mrna, Lnp-s, Pf, B ivalent, [...] Sign Reading Time Taken Comments Blood Pressure 122/84 06/16/2024 1:16 PM EDT Pulse 80 06/16/2024 1:16 PM EDT Temperature 36.8 C (98.3 F) 06/16/2024 1:16 PM ED T Respiratory Rate 18 06/16/2024 1:16 PM EDT Oxygen Saturation 97% 06/16/2024 1:16 PM EDT Inhaled Oxygen Concentration - - Weight - - Height - - Body Mass Index - - documented in this encounter Functional Status Functional [...] as of this encounter Progress Notes * Sarah Manuel RN - 06/16/2024 11:08 AM EDT [facility] Inventory Control Assistant Visit Date: 06/16/2024 Time: 12:30 PM Name: Amairani Khan : 1950 Current Concerns: Patient seen for [facility] enrollment- Significant past medical history- CAD, HTN, HLD, pulmonary HTN, osteoarthritis, history of c-diff, history of insomnia. 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 Placed on amiodarone and lasix x 1 month. 06/06/24- presented to ER with chest pain- diagnosis- acute pulmonary embolism/DVT leg. Discharged with Eliquis and remained on Amiodarone. 06/13/24- presented with chills without fever- Dx. PVC's. Atenolol switched to Metoprolol. Eliquis decreased to 5mg BID, Mag ox started daily. Patient lives with in two story home. Bedroom first floor. Bottle out medication review- knowledgeable with medications Independent with ambulation Currently receiving SN services- [facility] Alert and oriented x 4- very pleasant- cooperative Reports feeling well- has friend that visits and assists with getting a shower. Sternal incision- left inner thigh incision healed. LLE- scabbed area- recommended washing with soap and water- neosporin and BA. VS wnl Lungs clear bilaterally Denies sob No LE edema noted Voiding without difficulty Bowels wnl- per report Appetite good Taking fluids well Denies pain- does have tramadol prn- uses sparingly. Patient reports nurse mentioned to her of an interaction with two of her medications. [facility] nurse was to call in to the doctor. TT to Theron CORTEZ-Umer- per Theron- only two medications that may flag would be Remeron and Tramadol due to possible serotonin syndrome- is on such a low dose and no other SSRI. Continue medicationsas prescribed. No true concerns. Physical Exam: BP 122/84 (BP Site: Left Arm, BP Position: Sitting, BP Cuff Size: Regular) | Pulse 80 | Temp 36.8 C (98.3 F) (Tympanic) | Resp 18 | SpO2 97% Pain 0 Physical Exam Constitutional: Appearance: Normal appearance. Cardiovascular: Rate and Rhythm: Normal rate and regular rhythm. Pulses: Normal pulses. Pulmonary: Effort: Pulmonary effort is normal. Breath sounds: Normal breath sounds. Abdominal: General: Bowel sounds are normal. Palpations: Abdomen is soft. Musculoskeletal: General: Normal range of motion. Skin: General: Skin is warm and dry. Capillary Refill: Capillary refill takes 2 to 3 seconds. Neurological: General: No focal deficit present. Mental Status: She is alert and oriented to person, place, and time. Psychiatric: Mood and Affect: Mood normal. Behavior: Behavior normal. Problems/Symptoms: Review of Systems Constitutional: Negative. HENT: Negative. Respiratory: Negative. Cardiovascular: Negative. Gastrointestinal: Negative. Genitourinary: Negative. Musculoskeletal: Negative. Skin: Negative. Neurological: Negative. Hematological: Negative. Psychiatric/Behavioral: Negative. Medication Reconciliation: (See medication list) Does patient take medications as ordered: Yes Patient Well Being: PHQ2/9: No questionnaires available. Within normal limits [facility]-10 Completed this Visit: Yes Advanced Care Planning: No documentation, Discussed completion of HCPOA, Living will document. . Patient's Goals of Care: Get better so I can resume my normal activites Do my own housework Take care of myself Reinforcement/Education: Educated on home safety: Create a fall proof home Clear floors of clutter, loose wires, throw rugs, and cords. Make sure halls, stairways, and entrances are well lit. Install a nightlight in your bedroom, hallway and bathroom. Install grab bars or handrails in the bathroom and on stairs. Use a non-skid tub/shower mat. Avoid climbing on a chair; instead use a step stool with a high handrail. Keep sidewalks and steps in good repair Keep steps and sidewalks free of snow and ice. Using aids to support and prevent falls If you have poor balance or have fallen in the past, consider additional support such as a cane or walker. Use a cane with good support and that is the proper length for you. Use a walker if a cane doesnt provide enough support. Avoid medications that increase the risk of falling by causing dizziness, change in sensation or slowed reflexes. Certain medicines may cause falls - blood pressure pills, heart medicines, water pills, or sleepingpills. Be sure to understand each medicine that you are taking and any side effects that may occur. Improve your balance and flexibility with muscle strengthening exercises. Ask your health care provider for some exercises that will be right for you. Reinforced medication regimen. Timing., Dosing., and Purspose. Treatment/Plan: [facility] Continue medications as prescribed Keep all upcoming MD appointments Low na diet Fluids encouraged Activity as tolerated- no lifting RN CM follow up in 8 weeks- has annual nurse visit 06/17- cardiology 06/18 cardiothoracic appt 06/24 and Provider appointment 06/25. Home Interventions Provided: Reinforced current Plan of Care, including self-management and medication regimen Patient's 'Red Flags': Increase pain sternal incision Redness/drainage- incision sites Dizziness/ lightheadedness Patient Needs to Remember: Call [facility] at with any new or worsening health concerns or problems, red flag symptoms. Referrals Needed: N/a Follow Up: Is there cellular connectivity/connectivity in the home? Yes Does the patient have internet in the home? Yes Patient encouraged to call the intake phone number for all urgent but not emergent issues. Is the patient new to [facility] within the last 30 days? Yes, Is this a Transitions of Care visit? Yes, this is the 1st visit. Provider is in agreement with Plan of Care: Yes Scheduled to follow up with patient in 8 weeks. Sarah Church RN 06/16/2024 12:30 PM documented in this encounter Miscellaneous Notes * ACP (Advance Care Planning) - Sarah Manuel RN - 06/16/2024 11:59 AM EDT Patient-centered Communication 06/16/2024 The patient/surrogate voluntarily agreed to participate in advance care planning discussion. They were advised that this is a separate service which may incur out of pocket cost in the form of copayment and/or deductibles. Location: Home Individual(s) present for conversation: Patient and Spouse Decisions Synopsis SmartLink Most Recent Value Past ~10 years 06/16/2024 13:08 Decisions CPR decision: Patient chooses CPR 06/16/2024 Patient chooses CPR Intubation/Mechanical Ventilation decision: Patient chooses Intubation/mechanical ventilation 06/16/2024 Patient chooses Intubation/mechanical ventilation Non-invasive ventilation or BIPAP decision: Patient chooses non-invasive ventilation. Select interventions below 06/16/2024 Patient chooses non-invasive ventilation. Select interventions below Non-Invasive Ventilation Interventions: NIV 06/16/2024 NIV Antibiotic therapy decision: Patient chooses Antibiotic therapy 06/16/2024 Patient chooses Antibiotic therapy Artificial nutrition decision: Undecided about Artificial nutrition 06/16/2024 Undecided about Artificial nutrition IV hydration decision: Patient chooses IV hydration 06/16/2024 Patient chooses IV hydration Surgical procedure(s) decision: Patient chooses Surgical procedure 06/16/2024 Patient chooses Surgical procedure Blood transfusion decision: Patient chooses Blood transfusion 06/16/2024 Patient chooses Blood transfusion Lab draw decision: Patient chooses Lab draws 06/16/2024 Patient chooses Lab draws Transport decision: Patient chooses Transport 06/16/2024 Patient chooses Transport Dialysis decision: Undecided about Dialysis 06/16/2024 Undecided about Dialysis Additional Comments Discerning What Matters Most to the Patient: Source: Content from [employer] Program Aligning Care With What Matters Most: Synopsis SmartLink Most Recent Value Past ~10 years 06/16/2024 13:08 Aligning Care With What Matters Most Interventions/Choices: CPR;Intubation/mechanical ventilation;Non-invasive ventilation or BIPAP;Antibiotic therapy;Surgical procedure;Blood transfusion;Lab draws;IV hydration;Artificial nutrition;Transport;Dialysis 06/16/2024 CPR;Intubation/mechanical ventilation;Non-invasive ventilation or BIPAP;Antibiotic therapy;Surgical procedure;Blood transfusion;Lab draws;IV hydration;Artificial nutrition;Transport;Dialysis Rationale for Decisions Source: Content from [employer] Program 20 minutes spent in direct [id number] discussion today, Sarah Church RN documented in this encounter Plan of Treatment Upcoming Encounters Date Type Department Care Team (Late st Contact Info) Description 06/17/2024 9:00 AM EDT Nurse Only Ancillary [address] [place] [address] [place], Nurse [address] [place] [address] 06/18/2024 1:30 PM EDT Office Visit Cardiology, [facility] [address] [place] [address] German Laboy, DO [address] [place] [address] 06/24/2024 1:00 PM EDT Office Visit Cardiothoracic Surg [facility] [address] [place] [address] Alfonso Jay MD [address] [place] [address] 06/25/2024 1:00 PM EDT Home Visit [facility], [facility] [address] [place] [address] Theron Hester PA-C [address] [place] [address] 07/02/2024 9:30 AM EDT Office Visit Cardiology [address] [place] [address] Sarah Antoine PA-C [address] [place] [address] 08/05/2024 10:00 AM EDT Home Visit [facility], [facility] [address] [place] [address] Sarah Manuel, RN [address] [place] [address] 08/25/2024 1:40 PM EST Office Visit Family Medicine [address] [place] [phone] Jasmina Taylor MD [address] [place] [address] [place] [id number] 10/05/2024 2:00 PM EST Office Visit Gastroenterology, [facility] [address] [place] [address] Martha Porter CRNP [address] [place] [address] Scheduled Procedures Name Priority Associated Diagnoses Date/Ti [...] this encounter Medical Devices Implanted Type Area Family Protection Specialist Device Identifier Shelf Expiration Date Model / Serial / Lot Suture Steel 6 B&S19 M654g - [id number] Implanted:Qty: 7 on 05/15/2024 by Alfonso Jay MD at [place] [facility] N/A: Sternum JNJ : [employer] 08/20/2028 M654G / / TMMAST Marker Coronary - [id number] Implanted:Qty: 1 on 05/15/2024 by Alfonso Jay MD at OR [facility] N/A: Aorta [employer] 04/19/2027 [facility] / / [id number] Description:attached to vein graft Marker Coronary - [id number] Implanted:Qty: 1 on 05/15/2024 by Alfonso Jay MD at OR [facility] N/A: Aorta [employer] 03/20/2027 [facility] / / [id number] Description:attached to vein graft documented as of this encounter Visit Diagnoses Diagnosis Advanced care planning/counseling discussion- Primary Other specified counseling documented in this encounter Advance Directives * [...] and were consensually agreed upon. Care Teams Postdoctoral Scientist Relationship Specialty Start Date End Date Jasmina Taylor MD [address] [place] [address] [place] [address] PCP - General Family Medicine 05/07/24 documented as of this encounter
--- OUTSIDE RECORDS SUMMARY | 2024-06-27 21:05 | External Medical Summary | Summary of Care ---
Author Name Unknown Organization [facility] Address [address] [place] [address] Phone [phone] Care Team Providers Care Diagnostic Tech Name Role Phone Jasmina Taylor MD Primary Care Provide r Reason for Visit * Reason Comments Adult Annual Wellness Visit, Subsequent Visit Encounter Details Date Type Department Care Team (Late st Contact Info) Description 06/17/2024 9:00 AM EDT Nurse Only Ancillary [address] [place] [phone] [place] Nurse [address] [place] [id number] Adult Annual Wellness Visit, Subsequent Visit Allergies Active Allergy Reactions Criticality Noted Date [...] disease 05/13/2024 Multiple vessel coronary artery disease 07/24/20 24 Primary osteoarthritis of right knee 03/13/2024 [...] mRNA, LNP-s, No Pre serve, 2-Dose Series (Foodily) 08/22/2021,12/14/2020,11/23/2020 COVID-19, LNP-s, No Preserve , Clive-sucrose, Ages 12+ (Pfizer) 02/13/2022 COVID-19, MRNA-LNP, 23-24, P F, 30 MCG/0.3 mL, 12 YRS AND ABOVE, IM (Choosly-Comirnat) 08/23/2023 Covid-19, Mrna, Lnp-s, Pf, B ivalent, [...] Sign Reading Time Taken Comments Blood Pressure 124/78 06/17/2024 9:17 AM EDT Pulse 87 06/17/2024 9:17 AM EDT Temperature 35.7 C (96.2 F) 06/17/2024 9:17 AM ED T Respiratory Rate - - Oxygen Saturation 94% 06/17/2024 9:17 AM EDT Inhaled Oxygen Concentration - - Weight 81.9 kg (180 lb 9.6 oz) 06/17/2024 9:17 A M EDT Height 162.6 cm (5' 4") 06/17/2024 9:17 AM EDT Body Mass Index 31 06/17/2024 9:17 AM EDT documented in this [...] this encounter Patient Instructions * Patient Instructions* Unique James RN - 06/17/2024 9:15 AM EDT Patient Instructions - Fall Prevention (This education is for all patients over 65 regardless of symptoms) Remember to take your current medications as prescribed. In order to prevent falls, you are encouraged to: Exercise Utilize assistive/adaptive devices Avoid multifocal lenses when walking Avoid hazards in home Maintain a regular toileting schedule Any questions please contact our office. Preventing Falls in the Home (This education is for all patients over 65 regardless of symptoms) As you get older, falls are more likely. Thats because your reaction time slows. Your muscles and joints may also get stiffer, making them less flexible. Illness, medications, and vision changes can also affect your balance. A fall could leave you unable to live on your own. To make your home safer, follow these tips: Floors Put nonskid pads under area rugs Remove throw rugs Replace worn floor coverings Tack carpets firmly to each step on carpeted stairs. Put nonskid strips on the edges of uncarpeted stairs Keep floors and stairs free of clutter and cords Arrange furniture so there are clear pathways Clean up any spills right away Bathrooms Install grab bars in the tub or shower Apply nonskid strips or put a nonskid rubber mat in the tub or shower Sit on a bath chair to bathe Use bathmats with nonskid backing Lighting Keep a flashlight in each room Put a nightlight along the pathway between the bedroom and the bathroom Urban Patient Education Copyright 2008 - 2010 Urban except where otherwise noted Preventing Falls: Exercises to Improve Balance, Flexibility, Strength, and Staying Power (This education is for all patients over 65 regardless of symptoms) Certain types of exercises may help make you less likely to fall. Try the ones below. Or do other exercises that your healthcare provider suggests. Depending on your health, you may need to start slowly. Dont let that stop you. Even small amounts of exercise can help you. Be sure to talk to yourhealthcare provider before starting any exercise program. Improve Balance Many types of exercise can help improve balance. Roly chi and yoga are good examples. Heres another one to try. You can do it anytime and almost anywhere. Stand next to a counter or solid support. Push yourself up onto your tiptoes. Hold for 5 seconds. If you start to lose your balance, hold on to the counter. Rest and repeat 5 times. Work up to holding for 20 to 30 seconds, if you can. Increase Flexibility Being more flexible makes it easier for you to move around safely. Try exercises like the seated hamstring stretch. Sit in a chair and put one foot on a stool. Straighten your leg and reach with both hands down either side of your leg. Reach as far down your leg as you can. Hold for about 20 seconds. Go back to the starting position. Then repeat 5 times. Switch legs. Build Strength Resistance exercises help build strength. You can do them without equipment. Or you can use weights, elastic bands, or special machines. One such exercise is called the biceps curl. You can hold a 1 pound weight or even a can of soup. Do this exercise at least 3 times a week. Strive for everyday. Sit up straight in a chair. Keep your elbow close to your body and your wrist straight. Bend your arm, moving your hand up to your shoulder. Then slowly lower your arm. Repeat 5 times. Switch to the other arm. Build Your Staying Power Aerobic exercises make your heart and lungs stronger so you can keep moving longer. Walking and swimming are two of the best types of exercises you can do. Using a stationary bike is great, too. Find an aerobic exercise that you enjoy. Start slowly and build up. Even 5 minutes is helpful. Aimfor a goal of 30 minutes, at least 3 times a week. You dont have to do 30 minutes in one session. Break it up and walk a little throughout the day. More Helpful Tips Start easy. Slowly work up to doing more. Talk with your healthcare provider about the best exercises for you. Call senior centers or health clubs about exercise programs. If needed, have a family member watch you walk every so often to check your stability. Exercise with a friend. Choose an activity you both enjoy. Try exercises that you can do anytime, anywhere. Here are two examples. Have someone with you when you first try these: Practice walking by placing one foot right in front of the other. Stand up and sit down 10 times. Repeat this throughout the day. [employer] Patient Education Copyright 2009 - 2010 Urban except where otherwise noted. Preventing Falls: Moving Safely Using a Cane or Walker (This education is for all patients over 65 regardless of symptoms) Keep the cane away from your feet so you dont trip. A walking aid, such as a cane or walker, can help you stay more independent and avoid falls. Remember to keep your walking aid within easy reach when youre in a chair or in bed. And learn how to use it safely so you dont injure yourself. Using a Cane If you have a stronger side, hold the cane on that side. Get your balance. Move the cane and your weaker leg forward. Support your weight on both the cane and your weaker side. Step with your stronger leg. Start again from step 1. If youre using a folding walker, be sure you know how to lock it open. Check that its locked open before each use. Using a Walker Roll the walker (or lift it, if youre using one without wheels) forward about 12 inches. Step forward with your weaker leg first. Use the walker to help keep your balance. Bring your other foot forward to the center of the walker. Start again from step 1. Helpful Tips Check with your healthcare provider about the right walking aid to use. Ask about a walker with a seat attached. Check the tips of your cane or walker to make sure they have nonskid covers. Move slowly from room to room. Dont clark. Sit down to get dressed. Use a noemí pack or backpack to keep your hands free. Get help for jobs that mean climbing, even on a stepstool. [employer] Patient Education Copyright 2008 - 2010 Urban except where otherwise noted. Urinary Incontinence Plan of Care Documentation: (This education is for all patients over 65 regardless of symptoms) Current medications reconciled. Patient encouraged to: Practice kegal exercises Provide education materials Use the restroom every 2 hours throughout the day Limit caffeine, alcohol, spicy foods and acidic foods Keep a bladder diary Limit fluid intake 3-4 hours before bed Lose weight Prevent constipation Take fluid pills at a time when you can get to the bathroom quickly Control sugar better if diabetic Limit fluid intake to 60 oz. per day Wear support stockings (TEDs)if you have edema Unique James RN 06/17/2024 Kegel Exercises Kegel exercises dont require special clothing or equipment. Theyre easy to learn and simple to do. And if you do them right, no one can tell youre doing them, so they can be done almost anywhere. Your doctor, nurse, or physical therapist can answer any questions you have and help you get started. A Weak Pelvic Floor The pelvic floor muscles may weaken due to aging, and vaginal childbirth, injury, surgery, chronic cough, or lack of exercise. If the pelvic floor is weak, your bladder and other pelvic organs may sag out of place. The urethra may also open too easily and allow urine to leak out. Kegel exercises can help you strengthen your pelvic floor muscles so they can better support the pelvic organs and control urine flow. How Kegel Exercises Are Done Try each of the Kegel exercises described below. When youre doing them, try not to move your leg, buttock, or stomach muscles. While youre urinating, try to stop the flow of urine. Start and stop it as often as you can. Contract as if you were stopping your urine stream, but do it when youre not urinating. Tighten your rectum as if trying not to pass gas. Contract your anus, but dont move your buttocks. Helpful Hints Do your Kegels as often as you can. The more you do them, the faster youll feel the results. Pick an activity you do often as a reminder. For instance, do your Kegels every time you sit down. Tighten your pelvic floor before you sneeze, get up from a chair, cough, laugh, or lift. This protects your pelvic floor from injury and can help prevent urine leakage. Try to hold each Kegel for a slow count to five. You probably wont be able to hold them for thatlong at first, but keep practicing. It will get easier as your pelvic floor gets stronger. Eventually, special weights that you place in your vagina may be recommended to help make your Kegels even more effective. Urban Patient Education Copyright 2009 - 2010 Urban except where otherwise noted. Here are some helpful tips for your urinary incontinence: (This education is for all patients over 65 regardless of symptoms) Practice Kegel exercises Use the restroom every 2 hours throughout the day Limit caffeine, alcohol, spicy foods, and acidic foods Keep a bladder diary Limit fluid intake 3-4 hours before bed Lose weight Prevent constipation Take fluid pills at a time when can get to the bathroom quickly Control sugar better if diabetic Limit fluid intake to 60 oz. per day Any questions, please feel free to contact our office. Hi Ms. Khan, As your primary care physician, I know that regular visits with my patients who have several chronic conditions can go a long way in helping you stay healthy. Many times, the clinic team and I are in touch with you and/or other care team members between office visits to adjust medications, discuss any changes in your health, and review our care plan to make sure it is still meeting your needs. I am dedicated to helping you take a more active role in your overall care. It is important that there are resources available to you, so I created a personalized plan of care with a Health Calendar for you, which is included on the next page of this letter. Below is a list that summarizes your electronic health record: Health Maintenance Due: Health Maintenance Due Topic Date Due DTap/Tdap Vaccines (2 - Td or Tdap) 07/14/2018 Current Medication List: (as of Visit date not found (in office), Visit date not found (telemedicine) ) Current Outpatient Medications Medication Sig Dispense Refill [...] Do not start before May 21, 2024. 35Tablet 0 traMADol HCl 50 MG Oral Tablet (Ultram) Take 0.5 Tablets by mouth every 6 hours as needed for Pain, Moderate. 10 Tablet 0 Levalbuterol Tartrate 45 MCG/ACT Inhalation Aerosol (Xopenex HFA) Inhale 2 Puffs by mouth every4 hours as needed for Wheezing. 15 g 5 Eliquis 5 MG Oral Tablet 1 Tablet in the morning and 1 Tablet before bedtime. Magnesium 400 MG Oral Tablet Take by mouth daily. Potassium Chloride ER 10 MEQ Oral Tablet Extended Release Take 2 Tablets by mouth in the morning. Take with lasix until gone. 60 Tablet 0 No current facility-administered medications for this visit. Current List of Allergies: (as of Visit date not found (in office), Visit date not found (telemedicine) ) Review of patient's allergies indicates: Allergen Reactions Baclofen Vertigo/extreme dizziness Codeine "deathly sick" Levaquin [Levofloxacin] Nausea/vomiting Sulfa Antibiotics Rash Most Recent Lab Results: Results for orders placed or performed in visit on 06/10/24 CHEMISTRY-OUTSIDE Result Value Ref Range Not all results display below - see scan for full detail CREATININE-OUTSIDE LAB 1.12 0.6 - 1.2 MG/DL EGFR-OUTSIDE LAB 49 ML/MIN/1.73M2 POTASSIUM-OUTSIDE LAB 3.8 3.5 - 5.1 MMOL/L GLUCOSE-OUTSIDE LAB 101 (A) 70 - 99 MG/DL HOURS FASTING TRIGLYCERIDES-OUTSIDE LAB CHOLESTEROL-OUTSIDE LAB HDL-OUTSIDE LAB CHOL/HDL RATIO-OUTSIDE LAB LDL (CALCULATED)-OUTSIDE LAB LDL (DIRECT MEASURE)-OUTSIDE LAB HEMOGLOBIN, [id number] LAB PHOSPHORUS-OUTSIDE LAB 3.8 2.5 - 4.9 MG/DL PTH-OUTSIDE LAB MICROALBUMIN RATIO-OUTSIDE LAB PROTEIN, UA-OUTSIDE LAB HGB *Note: Due to a large number of results and/or encounters for the requested time period, some results have not been displayed. A complete set of results can be found in Results Review. Sincerely, Jasmina Taylor MD 06/17/2024 [facility] (as of Visit date not found (in office), Visit date not found (telemedicine) ) Care needs Care needs Last completed Due next Diphtheria, tetanus & pertussis vaccines (2 - Td or Tdap) 07/14/2008 07/14/2018 Flu vaccine (recommended) (1) 07/06/2023 06/21/2024 Mammogram 11/13/2023 11/13/2024 Urine albumin/creatinine test 12/11/2021 12/11/2024 Bone Density 02/27/2022 02/27/2025 Kidney Function Test 06/08/2024 06/08/2025 Adult Wellness Visit 06/17/2024 06/17/2025 Colorectal cancer screening (colonoscopy 10 years, sigmoidoscopy 5 years, Cologuard 3 years, stool sample 1 year) 03/15/2023 03/15/2033 As you look over the recommended services, be sure to check with your insurance company to determine what's covered. [facility] is a great tool that helps you review your medical record online, including test results, doctor notes and your health summary. You can also schedule appointments with me and other members of your care team, request prescription refills and ask for advice related to your medical conditions at [email or web address]. documented in this encounter Progress Notes * Unique James RN - 06/17/2024 9:24 AM EDT AD8 Dementia Screening Interview Person answering questions: patient Remember, "Yes, a change" indicates that there has been a change in the last several years caused by cognitive (thinking and memory) problems 1. Problems with judgement (eg: problems making decisions, bad financial decisions, problems with thinking). No (0) 2. Less interest in hobbies/activities. No (0) 3. Repeats the same things over and over (questions, stories, or statements). No (0) 4. Trouble learning how to use a tool, appliance, or gadget (eg: VCR, computer, microwave, remote control). No (0) 5. Forgets correct month or year. No (0) 6. Trouble handling complicated financial affairs (eg: balancing checkbook, income taxes, paying bills). No (0) 7. Trouble remembering appointments. No (0) 8. Daily problems with thinking and/or memory. No (0) TOTAL AD8: 0 - AD8 Dementia Screening Score The final score is a sum of the number items marked "Yes, A Change". 0 - 1: Normal cognition; 2 or greater: Cognitive impairments is likely to be present - further testing required Adult Annual Wellness Visit: Amairani Khan is a 74 year old female who presents for an Adult Annual Wellness Visit. Depression Screening: Did the patient complete the screening questionnaire for Depression? Yes Is the patient's total score for Depression 15 or greater? No, no further intervention needed, unless requested by patient. Did the patient answer positively to the suicide question? No, no further intervention needed, unless requested by patient. In general, compared to other people your age, what would you say that your health is? Good Ht Readings from Last 1 Encounters: 06/17/24 1.626 m (5' 4") Wt Readings from Last 1 Encounters: 06/17/24 81.9 kg (180 lb 9.6 oz) Body Mass Index: BMI Greater than 30 Body mass index is 31 kg/m. BP Readings from Last 1 Encounters: 06/17/24 124/78 Medical/Surgical/Family History Reviewed: Yes Past Medical History: Diagnosis Date COPD, moderate (HCC) 01/26/2013 Diverticulitis GERD (gastroesophageal reflux disease) 01/26/2013 History of basal cell carcinoma HTN, goal below 140/90 09/07/2009 Modified per HTN protocol #16. Hyperlipidemia LDL goal < 130 02/17/2009 Hypertension Hypertensive urgency 05/14/2024 Kidney disease Nephrolithiasis OTHER DISEASE OF TRACHEA AND BRONCHUS 04/13/2010 Rhinitis, non-allergic 01/26/2013 Rhinitis, non-allergic 01/26/2013 acute Thyroid nodule Past Surgical History: Procedure Laterality Date CABG, ARTERIAL, SINGLE N/A 05/15/2024 CORONARY ARTERY BYPASS GRAFT USING ARTERY 1 GRAFT performed by Alfonso Jay MD at [facility] CABG, ARTERY-VEIN, TWO N/A 05/15/2024 CORONARY ARTERY BYPASS GRAFT ARTERIAL AND VENOUS 2 GRAFTS performed by Alfonso Jay MD at [place] [facility] COLONOSCOPY 05/2006 Dr Ackerman COLONOSCOPY, DIAGNOSTIC (RECTUM) 08/20/2018 normal bx, diverticulosis, repeat 10 yrs/COLONOSCOPY FLEXIBLE PROXIMAL DIAGNOSTIC performed by Nneka Mayer MD at ENDOSCOPY [facility] COLONOSCOPY, DIAGNOSTIC (RECTUM) 03/15/2023 COLONOSCOPY FLEXIBLE PROXIMAL DIAGNOSTIC performed by Karlos Olivarez MD at ENDOSCOPY [facility] EGD, FLEXIBLE, DIAGNOSTIC 08/20/2018 mild inflammation/ESOPHAGOGASTRODUODENOSCOPY (EGD), FLEXIBLE, TRANSORAL, DIAGNOSTIC performed by Nneka Mayer MD at ENDOSCOPY [facility] EGD, FLEXIBLE, DIAGNOSTIC 08/19/2023 hiatal hernia/ESOPHAGOGASTRODUODENOSCOPY (EGD), FLEXIBLE, TRANSORAL, DIAGNOSTIC performed by Ector Mireles MD at ENDOSCOPY [facility] ENDO,VIDEO ASSIST HARVEST RINA N/A 05/15/2024 ENDOSCOPY VIDEO ASSISTED HARVEST VEIN performed by Alfonso Jay MD at [place] [facility] FRAGMENT KIDNEY STONE BY SHOCK WAVE Right 10/02/2021 RIGHT LITHOTRIPSY EXTRACORPOREAL SHOCK WAVE performed by Ankush Loya MD at OR [facility] MAMMOGRAM SCREENING BILATERAL 01/12/2010 scattered fibroglandular densities, category 1 normal MISCELLANEOUS ORDER 1994 bladder tacking MOBILE DXA 01/21/2019 Lumbar T -2-2, Femur T -1, fx risk 8.3%/0.7%, low risk, repeat 3 years PARTIAL HYSTERECTOMY 1994 Hysterectomy Partial RMV MALG LSN FACE/EARS .6-1CM 01/01/2012 Dr Swain Family History Problem Relation Name Age of Onset Diabetes Mother Hypertension Mother hypothyroid Cancer Father thyroid, of brain aneurysm Gastro-intestinal disorder Mother Ulcerative Colitis Blood Disorder Sister Alysha Espinal hypo thyroid,hiatal hernia,Pemphigus, Pernicious anemia Heart Disorder Mother CAD, had ND Diabetes Sister Nneka CHF,hypothyroid Diabetes Brother Florin Ball hypothyroid No Past Hx Brother doesn't go to doc No Past Hx Brother No Past Hx Brother Has patient ever had cancer? History of cancer, type: skin cancer and Mohs Social History Tobacco Use Smoking status: Never Smokeless tobacco: Never Substance Use Topics Alcohol use: No Vaping/E-Cigarette Use Vaping/E-Cigarette Use Never User Vaping/E-Cigarette Substances Vaping/E-Cigarette Devices Tobacco/Alcohol screening completed today? Yes Hospital Care: Admissions (within the last year): Hospital, Location: [facility] 04/2024, [facility] [place] [facility] 05/2024 ER within 30 days: Yes, when: [facility] x 2 Does the patient have an Advance Directives/Living Will? No. Does the patient want information? Yes. Information given to patient Last Physical Exam: Last physical exam: 05.25.24 Does patient see primary provider regularly? Yes Does patient see other providers? Yes, Specialist Patient Care Team updated? Yes Review of patient's allergies indicates: Allergen Reactions Baclofen Vertigo/extreme dizziness Codeine "deathly sick" Levaquin [Levofloxacin] Nausea/vomiting Sulfa Antibiotics Rash Immunization History Administered Date(s) Administered COVID-19 mRNA, LNP-s, No Preserve, 2-Dose Series (Foodily) 11/23/2020, 12/14/2020, 08/22/2021 COVID-19, LNP-s, No Preserve, Clive-sucrose, Ages 12+ (Pfizer) 02/13/2022 COVID-19, MRNA-LNP, 23-24, PF, 30 MCG/0.3 mL, 12 YRS AND ABOVE, IM (Choosly- [facility]) 08/23/2023 Covid-19, Mrna, Lnp-s, Pf, Bivalent, 30 Mcg, IM, 12 yrs and above (Foodily) 07/24/2022 Pneumococcal Conjugate Vacc, 13 Valent (Prevnar) 11/27/2016 Pneumococcal Polysaccharide PPV23 (Pneumovax) 11/09/2013, 01/22/2019 Season Influenza, Quad, PF, Adjuvanted, 65+ Yrs, IM (FLUAD) 07/09/2020 Seasonal Influenza, PF, 6 M & above, IM , (FluLaval or Fluzone) 07/15/2018 Seasonal Influenza, Quadrivalent Hd (Fluzone Hd) 06/29/2021, 07/07/2022, 07/06/2023 Seasonal Influenza, Quadrivalent, No Preserve, IM 08/06/2015, 08/04/2016, 07/09/2017 Seasonal Influenza, Split, IIV3, With Preserve, Inj 08/21/2005, 08/06/2006, 08/26/2007, 08/19/2008,07/12/2009, 08/08/2010, 07/24/2011, 07/10/2012, 08/04/2013, 07/07/2014 Seasonal Influenza, Trivalent, Adjuvanted, 65+ yrs 07/28/2019 TDAP, Age 7 and older, IM (Adacel) 07/14/2008 Varicella Zoster Vaccine (Adult) 02/19/2013 Zoster Vaccine Recombinant (Shingrix) 03/14/2021, 05/16/2021 Current Outpatient Medications Medication Sig Dispense Refill [...] MG Oral Tablet Take by mouth daily. Potassium Chloride ER 10 MEQ Oral Tablet Extended Release Take 2 Tablets by mouth in the morning. Take with lasix until gone. 60 Tablet 0 No current facility-administered medications for this visit. Patient Active Problem List Diagnosis ADVANCE DIRECTIVE [...] fibrillation (HCC) History of basal cell carcinoma Medication Compliance: Patient is able to obtain all of her medications? Yes Patient takes medications as prescribed? Yes Patient manages own medications: Yes Patient uses a pill box? Yes, refill(s) completed by self Dental Exam: Yes: Every 6 Months Eye Screening: Yes: Every year Are you having trouble with hearing? No Do you use an assistive device to help your hearing? No Exercise Screening: does not exercise regularly, discuss cardiac rehab. Nutrition Assessment: Eats three meals a day Pain Screening: Are you having any pain? No Sleep Screening Tool 'STOP': Do you snore? Yes Do you feel fatigued during the day? Yes Do you wake up feeling like you haven't slept? Yes Have you been told you stop breathing at night? No Do you gasp for air or choke while sleeping? Yes Have you been told you have Sleep Apnea? Yes Do you have high blood pressure or are on medication(s) to control high blood pressure? Yes SCORE: If you check YES to two or more questions, make a referral for Obstructive Sleep Apnea Patient and Caregiver Support System: Patient lives with a spouse Means of Transportation: Drives. Concerns identified are: night Patient lives in Two Story - How many stairs: 14 with railings Community Resources: [employer] Functional Status and ADL Skills: Has patient ever had an amputation? No Functional Assessment: 90- Able to carry on normal activity, minor symptoms of disease Ambulation: Patient ambulates with assistive device. Cane Dressing: Gets clothes and dresses without any assistance: Independent Able to move freely in chair or bed including turning over: Independent Repositioning (bed or chair): Not applicable Transfers: Independent Toileting: Goes to bathroom, uses toilet, arranges clothes and returns without any assistance: Independent Toileting: continent of bladder and continent of bowel Feeding: Self Bathing: Self; tub and shower, grab bars Requires minimal assistance with ADLs. Instrumental ADL's: Shopping: Minimal Assistance Housekeeping: Minimal Assistance Handling Finances: Independent DME Vendor Name: Not Applicable Fall Risk Assessment: Can the patient demonstrate that she can stand from a sitting position? Yes Has the patient had a fall within the last 6 months? No Does the patient have a problem with her gait or balance? No Does the patient take 4 or more prescription medicines? Yes Does the patient use sedatives or narcotics? No Fall Risk Factors Present: Uses more than 4 medications Visually impaired Older than age 70 Ryt-In-qyq-Go Test: Time began at 900. Patient stood from sitting position and walked approximately 10 feet, returned and sat down. Total time for exn-em-mih-go test was 10 seconds. Piz-Pq-jrb-Go Test completed? Yes Gender Specific Preventative Plan: Health Maintenance Topic Date Due DTap/Tdap Vaccines (2 - Td or Tdap) 07/14/2018 Influenza Vaccine (FLU shot) (1) 06/21/2024 Mammogram 11/13/2024 Albumin/Creatinine Ratio 12/11/2024 DXA Scan 02/27/2025 GFR 06/08/2025 Depression Screening 06/17/2025 Adult Wellness Visit 06/17/2025 Colorectal Cancer Screening 03/15/2033 Zoster Vaccines Completed Pneumococcal Vaccine: 65+ Years Completed Hepatitis B Vaccine Aged Out MENINGOCOCCAL (MENACTRA/MENVEO) Aged Out HPV (Gardasil) Vaccine Aged Out COVID-19 Vaccine Discontinued Follow Up/ Referrals/Handouts: Depression screening - completed, patient is overwhelmed she had CABG x 3 in 05/13, rehospitalized for blood clots after. Functional assessment - discussed, and neighbor helping with everything. Really encouraged cardiac rehab Falls Risk screening - discussed Nutrition assessment -. Education Provided and Handouts Provided Pain screening - none today Incontinence screening - no concerns today Patient has been verbally educated on the need or importance of Cholesterol, GFR, Glucose, Hemoglobin, Hemoglobin A1c, and Immunizations: covid,flu,shingrix Pt has completed the covid vaccines: No Flu and shingrix completed Routine general medical examination at a health care facility (Primary) Risk and functional assessment Advanced care planning/counseling discussion Advance Care Planning is important for all adults. Discussed the process of thinking and talking about future healthcare decisions.ACP form and pamphlet given to patient to take home to discuss with family. Once form is completed , patient to get a copy to us to scan into their chart. Dyslipidemia, goal LDL below 100 - Med reconciliation completed and compliance discussed. - pt to continue present medications. Lab Results Component Value Date/Time LDL CHOLESTEROL (CALCULATED) - [facility] 98 05/14/2024 05:50 AM LDL CHOLESTEROL (CALCULATED) - [facility] 05/10/2020 08:30 AM LDL CHOLESTEROL (DIRECT MEASURE) - [facility] NOT APPLICABLE 05/10/2020 08:30 AM Family history of premature CAD Gastroesophageal reflux disease without esophagitis - Med reconciliation completed and compliance discussed. - pt to continue present medications. HTN, goal below 140/90 - Med reconciliation completed and compliance discussed. - pt to continue present medications. BP Readings from Last 3 Encounters: 06/17/24 124/78 06/16/24 122/84 05/25/24 102/72 Mild intermittent asthma without complication - Med reconciliation completed and compliance discussed. - pt to continue present medications. Postoperative atrial fibrillation (HCC) - Med reconciliation completed and compliance discussed. - pt to continue present medications. Pulmonary hypertension (HCC) - Med reconciliation completed and compliance discussed. - pt to continue present medications. S/P CABG x 3 Patient is following up with cardiology tomorrow. Encouraged to discuss cardiac rehab And sleep med appt History of basal cell carcinoma Patient did scheduled with Dermatology Follow Up: Return in 1 year (on 06/17/2025) for 12 month Subsequent Adult Wellness Visit. | For: 12 month Subsequent Adult Wellness Visit | Check-out note: 12 month Subsequent Adult Wellness Visit Would patient like to schedule next AWV visit? Yes Unique James RN documented in this encounter Miscellaneous Notes * ACP (Advance Care Planning) - Unique James RN - 06/17/2024 11:14 AM EDT Patient-centered Communication 06/17/2024 The patient/surrogate voluntarily agreed to participate in advance care planning discussion. They were advised that this is a separate service which may incur out of pocket cost in the form of copayment and/or deductibles. Location: Clinic Individual(s) present for conversation: Patient and Spouse [...] Most to the Patient: Source: Content from [facility] Aligning Care With What Matters Most: Synopsis SmartLink Most Recent Value Past ~10 years 06/16/2024 13:08 Aligning Care With What Matters Most Interventions/Choices: CPR;Intubation/mechanical ventilation;Non-invasive ventilation or BIPAP;Antibiotic therapy;Surgical procedure;Blood transfusion;Lab draws;IV hydration;Artificial nutrition;Transport;Dialysis 06/16/2024 CPR;Intubation/mechanical ventilation;Non-invasive ventilation or BIPAP;Antibiotic therapy;Surgical procedure;Blood transfusion;Lab draws;IV hydration;Artificial nutrition;Transport;Dialysis Rationale for Decisions Source: Content from [facility] 10 minutes spent in direct [id number] discussion Unique vaca RN * Pt Handout (on AVS) - Unique James RN - 06/17/2024 9:58 AM EDT Images from the original note were not included. The Benefits of Cardiac Rehabilitation - Video Understand what is provided in a cardiac rehabilitation program and recognize how it contributes toyou living a long, heart healthy future. To view the video go to this web address: [email or web address] Or, scan this QR code with your smart phone [employer] * Pt Handout (on AVS) - Unique James RN - 06/17/2024 9:58 AM EDT Images from the original note were not included. [id number] Cardiac Rehabilitation Cardiac rehabilitation (cardiac rehab) is a professionally supervised program designed by your healthcare team. It'll help you recover from your heart problem and reduce your risk of future heart problems. You may be helped by cardiac rehab if you have certain heart conditions or certain heart procedures. These include: Stable angina Heart attack Stable heart failure Coronary artery bypass surgery Heart valve surgery Angioplasty with or without a stent Heart-lung transplant Along with a tailored exercise program, cardiac rehab provides education and counseling to improve health. The cardiac rehab program includes: An assessment of your health Managing your risk factors such as high cholesterol, high blood pressure, and diabetes Education on diet and medicines Exercise training Losing weight Quitting smoking Emotional aspects such as stress, anxiety, or depression It's important to talk with your healthcare provider about the health benefits of enrolling in a cardiac rehab program. Your rehab program Your cardiac rehab program may start while you?re still in the hospital. After you leave the hospital, you may go to a facility for rehab classes. You?ll regain some strength and learn how to exercise safely. Once you do that, your healthcare provider may prescribe an exercise program for you to doat a gym or at home. As an inpatient You may start light exercise within 2 days of entering the hospital once you have the healthcare provider's approval. Your activity may be limited based on the procedure you had, such as bypass surgery, valve replacement, coronary angioplasty, or coronary stenting. As an outpatient As early as 1 to 2 weeks after leaving the hospital, you can join a supervised rehab program. Ask for a referral from your healthcare provider. Before leaving the hospital, your provider can provide contact and enrollment information. See if your healthcare team can get an appointment set up beforeyou're discharged home. Exercises will be prescribed to help you build strength and movement. The first month will most likely include easier exercises. Over time, you?ll exercise harder to improve your endurance. Your heart, oxygen saturation, and blood pressure may be watched as you work. Cardiac rehab programs are tailored to meet your needs. Some people may take part in the programfor 6 weeks, while others will do it for 6 months or longer. Some people may not have access to a facility-based cardiac rehab. Home-based cardiac rehab is considered in some cases for some people. Virtual programs may also be available. Ask your healthcareprovider if these are an option for you. Maintain the benefits to your health Don?t stop once you?ve finished your program! Make what you learned in rehab a regular part of yourlife. Here are some tips: Work out at home or at a gym. Try watching a new workout video each week. Take an exercise class. Find something that keeps you interested. Ask family and friends to help you stay motivated. The healthy lifestyle changes can benefit them as well by partnering up and working out together. Make other lifestyle changes to improve your heart and overall health. Quit smoking. Make changes to lower your stress. Lose excess weight. And lower your blood pressure and cholesterol. It's important to keep an open conversation with your healthcare provider about your progress and goals. Last Reviewed Date: 01/20/202419998642-3540 [employer]. All rights reserved. This information is not intended as a substitute for professional medical care. Always follow your healthcare professional's instructions. * Pt Handout (on AVS) - Unique James RN - 06/17/2024 9:57 AM EDT Images from the original note were not included. 62089 Understanding Carbohydrates Just like a car needs the right type of fuel to run, you need the right kind of food to function. To keep your energy level up, your body needs food that has carbohydrates (carbs). But carbs raise blood sugar levels higher and faster than other kinds of food. Your dietitian will work with you to figure out the amount of carbs you need. Carbs come in 3 types: starches, sugars, and fiber. Starches Starches are found in grains, some vegetables, and beans. Grain products include bread, pasta, cereal, and tortillas. Starchy vegetables include potatoes, peas, corn, jiang beans, yams, and squash. Kidney beans, roblero beans, black beans, garbanzo beans, and lentils also have starches. Sugars Sugars are found naturally in many foods. Or they can be added. Foods that contain natural sugar include fruits and fruit juices, dairy products, honey, and molasses. Added sugars are found in most desserts, processed foods, candy, regular soda, and fruit drinks. These are very helpful to treat lowblood sugar (hypoglycemia). They give you sugar quickly. Try to keep at least 15 to 20 grams of these simple sugars with you at all times. Eat or drink these if you start to have symptoms of low blood sugar. Fiber Fiber comes from plant foods. Your body can't digest most fiber. Instead of raising blood sugar levels like other carbs, fiber stops blood sugar from rising too quickly. Fiber is found in fruits, vegetables, whole grains, beans, peas, and many nuts. Understanding how to count your carbs Keep track of the amount of carbs you eat. This can help you keep the right balance of carbs, physical activity, and medicine. The amount of carbs you need will be different from what other people need. How much you need depends on many things. These include your health, the medicines you take, andhow active you are. Your healthcare team will help you figure out the right amount of carbs for you. You may start with 45 to 60 grams of carbs per meal, depending on your case. Carb counting is a system that helps you keep track of the carbohydrates you eat at each meal. Carbs come from many foods. These include grains, starchy vegetables, fruit, milk, beans, and snackfoods. You can either count carbohydrate grams or carbohydrate servings. When you count carbohydrate servings, 1 carbohydrate serving = 15 grams of carbohydrates. Here are some examples of foods that have about 15 grams of carbs (1 serving of carbohydrates): 1/2 cup of canned or frozen fruit A small piece of fresh fruit (4 ounces) 1 slice of bread 1/2 cup of oatmeal 1/3 cup of rice 4 to 6 crackers 1/2 Sammarinese muffin 1/2 cup of black beans 1/4 of a large baked potato (3 ounces) 2/3 cup of plain fat-free yogurt 1 cup of soup 1/2 cup of casserole 6 chicken nuggets 2-xrwm-wvrlgm brownie or cake without frosting 2 small cookies 1/2 cup of ice cream or sherbet Carb counting is easier when food labels are available. Look at the label to see how many grams of total carbs per serving the food contains. Then you can figure out how much you should eat. If your food doesn't have a nutrition label, you should be able to get an idea of how many carbs there are per serving by using a book or website. Two very important lines to look at on the label are the serving size and the total carbohydrate amount per serving. Here are some tips for using food labels to count your carbs: Check the serving size. The information on the label is based on that serving size. If you eat more than the listed serving size, you may have to double or triple the other information on the label. Check the total grams of carbs. Total carbohydrate from the label includes sugar, starch, and fiber. Be sure to use the total carbohydrate number (minus the fiber) and not sugar alone. Know how many grams of carbs you can have. Be familiar with the matching portion sizes. Compare labels. Compare the labels of different products. Look at serving sizes and total carbs to find the products that work best for you. Don't forget protein and fat. With the focus on carb counting, it might be easy to forget protein and fat in your meals. Don't forget to include sources of protein and healthy fat to balance your meals. Also watch how much salt (sodium) you eat. This is especially true if you have high blood pressure. If you have diabetes, limit the amount of sodium to less than 2,300 mg a day. It?s also important to be consistent with the amount of carbs and time you eat when taking a fixed dose of diabetes medicine. Work with your healthcare provider or dietitian if you need more help. They can help you keep track of your carbs. They can also help you figure out how many grams of carbs you should have. Last Reviewed Date: 12/20/202319998397-4205 [employer]. All rights reserved. This information is not intended as a substitute for professional medical care. Always follow your healthcare professional's instructions. * Pt Handout (on AVS) - Unique James RN - 06/17/2024 9:57 AM EDT Images from the original note were not included. Sleep Facts! - Video Pop Quiz: Sleep Facts! To view the video go to this web address: [email or web address] Or, scan this QR code with your smart phone [employer] * Pt Handout (on AVS) - Unique James RN - 06/17/2024 9:57 AM EDT Images from the original note were not included. [id number] Preventing Osteoporosis: Meeting Your Calcium Needs Your body needs calcium to build and repair bones. But it can't make calcium on its own. That's whyit's important to eat calcium-rich foods. Some foods are naturally rich in calcium. Others have calcium added (fortified). It's best to get calcium from the foods you eat. But if you can't get enough, you may want to take calcium supplements. To meet your daily calcium needs, try the foods listed below. Dairy Fish & beans Other sources Source Calcium (mg) per serving Source Calcium (mg) per serving Source Calcium (mg) per serving Low-fat yogurt, plain 415 mg/8 oz. Sardines, [place], canned, with bones 351 mg/3 oz. Oatmeal, instant, fortified 215 mg/1 cup Nonfat milk 302 mg/1 cup [place], sockeye, canned, with bones 239 mg/3 oz. Tofu made with calcium sulfate 204 mg/3 oz. Low-fat milk 297 mg/1 cup Soybeans, fresh, boiled 131 mg/1/2 cup Collards 179 mg/1/2 cup Mongolian cheese 272 mg/1 oz. White beans, cooked 81 mg/1/2 cup Sammarinese muffin, whole wheat 175 mg/1 muffin Cheddar cheese 205 mg/1 oz. [place] beans, cooked 79 mg/1/2 cup Kale 90 mg/1/2 cup Ice cream strawberry 79 mg/1/2 cup [place], navel 56 mg/1 medium Note: Calcium levels may vary depending on brand and size. Daily calcium needs 14 to 18 years old: 1,300 mg 19 to 30 years old: 1,000 mg 31 to 50 years old: 1,000 mg 51 to 70 years old, women: 1,200 mg 51 to 70 years old, men: 1,000 mg or nursin to 18 years old: 1,300 mg, 19 to 50 years old: 1,000 mg Older than 70 (women and men): 1,200 mg Last Reviewed Date: 08/21/202119993222-4405 [employer]. All rights reserved. This information is not intended as a substitute for professional medical care. Always follow your healthcare professional's instructions. * Pt Handout (on AVS) - Unique James RN - 06/17/2024 9:57 AM EDT [id number] Overview of Sleep Disorders Facts about sleep disorders Loss of sleep can cause problems at home or on the job. It can lead to serious or even fatal accidents. The National Sleep Foundation notes that: Between 50 and 70 million [place] adults have some type of sleep or wakefulness disorder. Sleep problems often get worse as you get older. Poor sleep cost billions of dollars a year. This is from healthcare expenses and lost productivity. Drowsy drivers cause about 40,000 vehicle crashes in the [place] every year. This includes more than 1,500 deaths. Types of sleep disorders There are many types of sleep disorders. They can affect health and quality of life. The disorders include: Insomnia Sleep apnea Sleepwalking Bedwetting Nightmares Night terror Restless legs syndrome Snoring Narcolepsy Why is sleep important? Sleep is not just resting or taking a break from busy routines. Sleep is a ratliff part of good health.Getting enough sleep may help the body recover from illness and injury. Not getting enough sleep over a period of time is linked to health problems. They include obesity, diabetes, and heart disease. The mental benefits of sleep are also important. Sleep problems can make daily life feel more stressful and less productive. Some people with chronic trouble sleeping (insomnia) are more likely to have mental health problems. Sleep problems are also tied to depression. In a research survey, people who had trouble getting enough sleep had trouble doing tasks that use memory and learning. How much sleep do you need? Sleep needs vary from person to person. But most healthy adults need about 7 to 9 hours of sleep a night. You may need more or better sleep if you: Have trouble staying alert during quiet activities Are irritable with coworkers, family, or friends Have trouble focusing or remembering facts Have trouble falling asleep or staying asleep, or wake up early and can't get back to sleep Getting treatment for a sleep disorder For those who suffer from sleep disorders, help is available from many sources. Sleep problems can be treated or managed by different kinds of healthcare providers. You may be treated by a healthcareprovider who specializes in any of these: Internal medicine Gerontology Pediatrics Family practice Pulmonary medicine Neurology Psychiatry Otolaryngology You can also find a healthcare provider who is certified in sleep medicine by the [place] [facility]. Talk with your healthcare provider about finding a sleep disorder program. Last Reviewed Date: 10/21/202219991006-8760 [employer]. All rights reserved. This information is not intended as a substitute for professional medical care. Always follow your healthcare professional's instructions. * Pt Handout (on AVS) - Unique James RN - 06/17/2024 9:57 AM EDT [id number] Low-Cholesterol Diet Too much cholesterol in your blood can lead to problems such as blocked arteries. This can lead to heart attack and stroke. Eating meals that are low in saturated fat and cholesterol helps reduce thelevel of cholesterol in your blood. Below are eating tips to help you do this. There are 2 kinds of cholesterol in your blood: HDL (good) cholesterol. This prevents fat deposits (plaque) from building up in your arteries. In this way, it protects against heart disease and stroke. LDL (bad) cholesterol. This stays in your body and sticks to artery granado. Over time it may block blood flow to the heart and brain. This can cause a heart attack or stroke. The cholesterol in your blood comes from 2 sources. It comes in food that you eat. And it's also made by your liver. You need to limit the amount of cholesterol you eat. And you need to limit bad fats. Your body makes more cholesterol when your diet is high in bad fats. Understanding the fats you eat There are 3 kinds of fats in foods and drinks: Unsaturated fats. These include mono-unsaturated and poly-unsaturated fats. These are healthy fats. They raise the level of good cholesterol. They lower the level of bad cholesterol. Good fats arefound in vegetable oils. This includes olive, sunflower, corn, and soybean oils. Good fats are alsoin fish, nuts, and seeds. Saturated fats. These are unhealthy fats. These raise your risk of disease. They lower your goodcholesterol. They raise your bad cholesterol. Saturated fats are found in animal products. This includes meat, whole-milk dairy products, and butter. Some plants are high in saturated fats. This includes coconut and palm plants. Trans fats. These are unhealthy fats. They lower your good cholesterol. They raise your bad cholesterol. The main source of trans fats is processed food. These foods have partially hydrogenated oils. These are fats made by turning a liquid fat into a solid fat at room temperature. Trans fats arefound in hard (stick) margarines. They are in many fast foods, processed foods, and baked goods. Soft margarine sold in tubs has fewer trans fats. The FDA says that trans fats are no longer considered safe in foods. Creating a low-cholesterol diet The tips below will help you create healthy eating habits to lower your blood cholesterol level: Talk with your healthcare provider before starting a new diet. Read nutrition labels. Learn what healthy portion sizes look like. When cooking, use unsaturated vegetable oils. These include sunflower, corn, soybean, canola, peanut, and olive oils. Limit saturated fats. These are in animal products such as meat and whole- milk dairy foods. Poultry skin also has this type of fat. Plants high in saturated fats include coconut oil, palm oil, andpalm kernel oil. Eat more meatless meals. If you eat meat, eat smaller portions. Choose lean cuts. This includes round, cayetano, sirloin, or loin. Replace meat with fish at least 2 times a week. Fish is a good source of omega-3 fatty acids. This is a type of unsaturated fat. This fat may lower the risk of heart disease. Replace whole-milk dairy products with low-fat or nonfat products. Try soy products. Soy helps to reduce total cholesterol. Eat more fiber. Eat nuts, seeds, and whole grains. These foods lower both cholesterol and triglyceride levels. Triglycerides are another type of fat in the blood. Don?t eat white rice or white bread. Eat plenty of fresh fruits and vegetables daily. Limit fast foods and baked goods. Assume they have saturated fat and trans fat. Last Reviewed Date: 09/20/202119994039-8535 [employer]. All rights reserved. This information is not intended as a substitute for professional medical care. Always follow your healthcare professional's instructions. * Pt Handout (on AVS) - Unique James RN - 06/17/2024 9:55 AM EDT Images from the original note were not included. 39495 Diabetes: Learning About Serving and Portion Sizes Servings and portions. What?s the difference? These terms can be very confusing. But learning to measure serving sizes can help you figure out how many carbohydrates (carbs) and other foods you eat each day. They're also powerful tools for managing your weight. A good rule of thumb: Devote half your plate to vegetables and green salad. Split the other half between protein and starchy carbohydrates. Fruit makes a good dessert. Servings and portions Many different words are used to describe amounts of food. If your healthcare provider uses a term you?re not sure of, don?t be afraid to ask. It helps to know the difference between servings and portions: A serving size. This is a fixed size. Food producers use this term to describe their products. For instance, the label on a cereal box could say that 1 cup of dry cereal = 1 serving. A portion (also called a helping). This is how much you eat or how much you put on your plate abhijit meal. For instance, you might eat 2 cups of cereal at breakfast. Watching serving sizes The portion you choose to eat (such as 2 cups of cereal) may be more than 1 serving as listed on the food label (such as 1 cup of cereal). That?s why it helps to measure or weigh the food you eat. Because the food label values are based on servings, you?ll need to know how many servings you eat at 1 sitting. When you?re planning for a snack or a meal, keep servings in mind. It's OK if you don?t have measuring cups or a scale handy. There are other ways to figure out serving sizes. For instance, you can compare the food to the size of your hand (see pictures below). Here are some general tips: About 3 ounces of meat fits in the palm of your hand 1 cup of food is about the size of your fist An open hand holds about 1 to 2 ounces of nuts Ounces: 2 to 3 ounces is about the size of your palm. 1 cup: 1 cup (or a medium-sized piece) is about the size of your fist. 1/2 cup: 1/2 cup is about the size of your cupped hand. Managing portion sizes If your weight is a concern, reducing your portions can help. A portion is the amount of each type of food on your plate. You can eat more than 1 serving of a food at once. But to keep from eating too much at 1 meal, learn how to manage your portions. Portion control will also help with blood sugarmanagement. Last Reviewed Date: 01/20/202419996620-0170 [employer]. All rights reserved. This information is not intended as a substitute for professional medical care. Always follow your healthcare professional's instructions. * Pt Handout (on AVS) - Unique James RN - 06/17/2024 9:52 AM EDT Images from the original note were not included. [id number] Steps for Eating Healthier Changing the way you eat can improve your health. It can lower your cholesterol and blood pressure,and help you stay at a healthy weight. Your diet doesn?t have to be bland and boring to be healthy.Just watch your calories and follow these steps: Step 1. Eat fewer unhealthy fats Choose more fish and lean meats instead of fatty cuts of meat. Skip butter and lard, and use less margarine. Replace these with healthier fats, such as olive, canola, or avocado oils. Pass on foods that have palm, coconut, or partially hydrogenated oils. Eat fewer high-fat dairy foods like cheese, ice cream, and whole milk. Get a heart-healthy cookbook and try some new recipes. Step 2. Go light on salt Keep the saltshaker off the table. Limit high-salt ingredients, such as soy sauce, bouillon, and garlic salt. Instead of adding salt when cooking, season your food with herbs, spices, and other flavorings. Try lemon, garlic, onion, vinegar, or salt-free herb seasonings. Limit convenience foods, such as boxed or canned foods and restaurant food. Read food labels and choose lower-sodium options. Buy fresh, frozen, or canned vegetables that don't have added salt. Step 3. Limit sugar Pause before you add sugars to pancakes, cereal, coffee, or tea. This includes white and brown table sugar, syrup, honey, and molasses. Cut your usual amount by half. Swap out sugar-filled soda and other drinks. Buy sugar-free or low-calorie beverages. Remember, water is always the best choice. Try adding lemon juice to water for extra flavor. Read labels and choose foods with less added sugar. Keep in mind that dairy foods and foods withfruit will have some natural sugar. Cut the sugar in recipes by 1/3 to 1/2. Boost the flavor with extracts like almond, vanilla, or orange. Or add spices such as cinnamon or nutmeg. Step 4. Eat more fiber Eat fresh fruits and vegetables every day. Boost your diet with whole grains. Go for oats, whole-grain rice, and bran. Add beans and lentils to your meals. Drink more water to match your fiber increase to help prevent constipation. Step 5. Pay attention to serving sizes Remember that a serving size is a standard measurement. It will let you track the amount of fat,calories, and other nutrients in the food you eat. Read the Nutrition Facts label on packaged foods to learn their serving sizes. Use serving sizes to assess how much food you put on your plate. Pay attention to your portions.How many servings are you eating? Keep in mind that your needs may change if you?re more active or less active, or if you have other factors that change your calorie needs. Use your hand to help you measure serving sizes. For example: o 1 teaspoon: This is about the size of the first joint of your thumb. o 1 tablespoon: This is about the size of the first 2 joints of your thumb. o 1 ounce: This is about what you can fit in your cupped hand. o 2 to 3 ounces: This is about the size of the palm of your hand. o cup: This is also about what you can fit in your cupped hand. o 1 cup: This is about the size of your fist. Last Reviewed Date: 09/20/202219997562-7780 [employer]. All rights reserved. This information is not intended as a substitute for professional medical care. Always follow your healthcare professional's instructions. documented in this encounter Plan of Treatment Upcoming Encounters Date Type Department Care Team (Late st Contact Info) Description 06/18/2024 1:30 PM EDT Office Visit Cardiology, [facility] [facility] [address] [address] German Laboy DO [address] [place] [address] 06/24/2024 1:00 PM EDT Office Visit Cardiothoracic Surg [facility] [address] [place] [address] Alfonso Jay MD [address] [place] [address] 06/25/2024 1:00 PM EDT Home Visit [place] [facility] [address] [address] Theron Hester PA-C [address] [place] [address] [address] 07/02/2024 9:30 AM EDT Office Visit Cardiology [address] [place] [address] Sarah Antoine PA-C [address] [place] [address] 08/05/2024 10:00 AM EDT [facility] [address] [place] [address] Sarah Manuel, TAWANNA [address] [place] [address] 08/25/2024 1:40 PM EST Office Visit Family Medicine [address] [place] [phone] Jasmina Taylor MD [address] [place] [address] [place] [address] 10/05/2024 2:00 PM EST Office [facility], [facility] [place] [address] Martha Porter CRNP [address] [place] [address] 01/20/2025 3:20 PM EDT Office Visit Dermatology [address] [place] [address] Carolynn Dailey PA-C [address] [place] [address] [place] [address] 06/18/2025 10:00 AM EDT Nurse Only Ancillary [address] [place] [address] [place], Nurse [address] [place] [address] Scheduled Procedures Name Priority Associated Diagnoses Date/Ti [...] this encounter Medical Devices Implanted Type Area Mica Laminating Machine Feeder Device Identifier Shelf Expiration Date Model / Serial / Lot Suture Steel 6 B&S19 M654g - [id number] Implanted:Qty: 7 on 05/15/2024 by Alfonso Jay [place] [facility] [place]: Sternum JNJ : [employer] 08/20/2028 M654G / / TMMAST Marker Coronary - [id number] Implanted:Qty: 1 on 05/15/2024 by Alfonso Jay MD [place] [facility] [place]/A: Aorta [employer] 04/19/2027 [facility] / / [id number] Description:attached to vein graft Marker Coronary - [id number] Implanted:Qty: 1 on 05/15/2024 by Alfonso Jay MD [place] [facility] [place]/A: Aorta [employer] 03/20/2027 [facility] / / [id number] Description:attached to vein graft documented as of this encounter Visit Diagnoses Diagnosis Routine general medical examination at a health care facility- Primary Risk and functional assessment Screening for unspecified condition Advanced care planning/counseling discussion Other specified counseling Dyslipidemia, goal LDL below 100 Other and unspecified hyperlipidemia Family history of premature CAD Family history of ischemic heart disease Gastroesophageal reflux disease without esophagitis Esophageal reflux HTN, goal below 140/90 Unspecified essential hypertension Mild intermittent asthma without complication Unspecified asthma Postoperative atrial fibrillation (HCC) Cardiac complications Pulmonary hypertension (HCC) Other chronic pulmonary heart diseases S/P CABG x 3 Postsurgical aortocoronary bypass status History of basal cell carcinoma Personal history of other malignant neoplasm of skin documented in this encounter Advance Directives * [...] and were consensually agreed upon. Care Teams Diagnostic Tech Relationship Specialty Start Date End Date Jasmina Taylor MD [address] [place] [address] [place] [phone] PCP - General Family Medicine 05/07/24 documented as of this encounter
--- OUTSIDE RECORDS SUMMARY | 2024-06-27 21:05 | External Medical Summary | Summary of Care ---
Author Name Unknown Organization [facility] Address [address] [place] [address] Phone [phone] Care Team Providers Care Medical Office Assistant Instructor Name Role Phone Jasmina Taylor MD Primary Care Provide r Reason for Visit * Reason Onset Date Comments Advice 06/17/[address] Taylor Encounter Details Date Type Department Care Team (Late st Contact Info) Description 06/17/2024 Telephone Family [address] [phone] Jasmina Taylor MD [address] [place] [address] [place] [address] Advice (Rev w Dr. Taylor) Allergies [...] mRNA, LNP-s, No Pre serve, 2-Dose Series (Inventic) 08/22/2021,12/14/2020,11/23/2020 COVID-19, LNP-s, No Preserve , Clive-sucrose, Ages 12+ (Pfizer) 02/13/2022 COVID-19, MRNA-LNP, 23-24, P F, 30 MCG/0.3 mL, 12 YRS AND ABOVE, IM (Bespoke-Comirnat) 08/23/2023 Covid-19, Mrna, Lnp-s, Pf, B ivalent, 30 Mcg, IM, 12 yrs and above (Inventic) 07/24/2022 Pneumococcal Conjugate Vacc, 13 Valent (Prevnar) [...] 06/18/2024 1:30 PM EDT Office Visit Cardiology, [facility] [address] [place] [address] German Laboy, DO [address] [place] [address] 06/24/2024 1:00 PM EDT Office Visit Cardiothoracic Surg [facility] [address] [place] [address] Alfonso Jay MD [address] [place] [address] 06/25/2024 1:00 PM EDT [facility] Visit [facility] [place] [address] [address] Theron Hester PA-C [address] [place] [address] 07/02/2024 9:30 AM EDT Office Visit Cardiology [address] [place] [address] Sarah Antoine PA-C [address] [place] [address] 08/05/2024 10:00 AM EDT [facility] Visit [facility] [address] [address] Sarah Manuel RN [address] [place] [address] 08/25/2024 1:40 PM EST Office Visit Family Medicine [address] [place] [phone] Jasmina Taylor MD [address] [place] [address] [place] [address] 10/05/2024 2:00 PM EST Office Visit Gastroenterology, [facility] [address] [address] Martha Porter CRNP [address] [place] [address] 01/20/2025 3:20 PM EDT Office Visit Dermatology [address] [place] [address] Carolynn Dailey PA-C [address] [place] [address] [place] [address] 06/18/2025 10:00 AM EDT Nurse Only Ancillary [address] [place] [address] [place], Nurse Annual [address] [place] [address] Scheduled Procedures Name Priority Associated Diagnoses Date/Ti [...] this encounter Medical Devices Implanted Type Area Mate First Device Identifier Shelf Expiration Date Model / Serial / Lot Suture Steel 6 B&S19 M654g - [id number] Implanted:Qty: 7 on 05/15/2024 by Alfonso Jay MD at [place] [facility] [place] N/A: Sternum JNJ : [employer] 08/20/2028 M654G / / TMMAST Marker Coronary - [id number] Implanted:Qty: 1 on 05/15/2024 by Alfonso Jay MD at OR [facility] [place] N/A: Aorta [employer] 04/19/2027 [facility] / / [id number] Description:attached to vein graft Marker Coronary - [id number] Implanted:Qty: 1 on 05/15/2024 by Alfonso Jay MD at OR [facility] [place] N/A: Aorta [employer] 03/20/2027 [facility] / / [id number] Description:attached to vein graft documented as of [...] and were consensually agreed upon. Care Teams Medical Office Assistant Instructor Relationship Specialty Start Date End Date Jasmina Taylor MD [address] [place] [address] [place] [phone] PCP - General Family Medicine 05/07/24 documented as of this encounter
--- OUTSIDE RECORDS SUMMARY | 2024-06-27 21:05 | External Medical Summary ---
Author Name Unknown Address Unknown Organization K01[place] [place] [facility] [address] [facility] [address] [facility] [address] Laboratory Report Ordering Provider Test Date Status ERIK FATIMA 06/17/2024 10:17:30 Final Observation Date Value Abnormality Reference (Units ) Status WBC, Total 06/17/2024 10:17:30 6.98 4.00-10.80 (K/uL) Final RBC 06/17/2024 10:17:30 4.29 3.85-5.15 (M/uL) Final Hemoglobin 06/17/2024 10:17:30 12.8 12.0-15.3 (g/dL) Final HCT 06/17/2024 10:17:30 41.2 36.0-45.2 (%) Final MCV 06/17/2024 10:17:30 96.0 81.5-97.5 (fL) Final MCH 06/17/2024 10:17:30 29.8 27.0-34.0 (pg) Final MCHC 06/17/2024 10:17:30 31.1 32.0-36.0 (g/dL) Final RDW 06/17/2024 10:17:30 14.7 11.5-15.5 (%) Final Platelets 06/17/2024 10:17:30 256 140-400 (K/uL) Final MPV 06/17/2024 10:17:30 11.0 6.6-11.1 (fL) Final Nucleated erythrocytes/100 leukocytes [Ratio] in Blood by Automated count 06/17/2024 10:17:30 0 <=0 (/100 WBCs) Final Performing Location [facility] [place] [address] [facility] [address] [facility] [address]
--- OUTSIDE RECORDS SUMMARY | 2024-06-27 21:05 | External Medical Summary | Summary of Care ---
Author Name Unknown Organization [facility] Address [address] [place] [address] Phone [phone] Care Team Providers Care Assistant Product Manager Name Role Phone Jasmina Taylor MD Primary Care Provide r Reason for Visit * Reason Onset Date Comments Advice 06/17/2024 Encounter Details Date Type Department Care Team (Late st Contact Info) Description 06/17/2024 Telephone Family Medicine [address] [phone] Jasmina Taylor MD [address] [place], [place] [address] [phone] Advice Allergies Active Allergy Reactions Criticality Noted [...] mRNA, LNP-s, No Pre serve, 2-Dose Series (morphCARD) 08/22/2021,12/14/2020,11/23/2020 COVID-19, LNP-s, No Preserve , Clive-sucrose, Ages 12+ (Pfizer) 02/13/2022 COVID-19, MRNA-LNP, 23-24, P F, 30 MCG/0.3 mL, 12 YRS AND ABOVE, IM (Gymtrack-Comirnat) 08/23/2023 Covid-19, Mrna, Lnp-s, Pf, B ivalent, 30 Mcg, IM, 12 yrs and above (morphCARD) 07/24/2022 Pneumococcal Conjugate Vacc, 13 Valent (Prevnar) [...] encounter Miscellaneous Notes * Telephone Encounter - Coco Aleman OSA [...] 06/18/2024 1:30 PM EDT Office Visit Cardiology, [facility] [address] [address] German Laboy DO [address] [place] [address] [address] 06/24/2024 1:00 PM EDT Office Visit Cardiothoracic Surg [facility] [address] [place] [address] Alfonso Jay MD [address] [place], [place] [phone] 06/25/2024 1:00 PM EDT [facility] Visit [facility] [address] [place] [address] [address] Theron Hester PA-C [address] [place] [address] 07/02/2024 9:30 AM EDT Office Visit Cardiology [address] [place] [address] Sarah Antoine PA-C [address] [place] [address] 08/05/2024 10:00 AM EDT [facility] Visit [facility] [address] [place] [address] Sarah Manuel, TAWANNA [address] [place] [address] 08/25/2024 1:40 PM EST Office Visit Family Medicine [address] [place] [phone] Jasmina Taylor MD [address] [place] [address] [place] [address] 10/05/2024 2:00 PM EST Office Visit Gastroenterology, [facility] [address] [place] [address] Martha Porter CRNP [address] [place] [address] 01/20/2025 3:20 PM EDT Office Visit Dermatology [address] [place] [address] Carolynn Dailey PA-C [address] [place] [address] [place] [address] 06/18/2025 10:00 AM EDT Nurse Only Ancillary [address] [place] [address] [place], Nurse [address] [place] [address] Scheduled Procedures Name Priority Associated Diagnoses Date/Ti [...] this encounter Medical Devices Implanted Type Area Director Writing Device Identifier Shelf Expiration Date Model / Serial / Lot Suture Steel 6 B&S19 M654g - [id number] Implanted:Qty: 7 on 05/15/2024 [place] [facility] [place]: Sternum JNJ : [employer] 08/20/2028 M654G / / TMMAST Marker Coronary - [id number] Implanted:Qty: 1 on 05/15/2024 by Alfonso [place] [facility] [place]: Aorta [employer] 04/19/2027 [facility] / / [id number] Description:attached to vein graft Marker Coronary - [id number] Implanted:Qty: 1 on 05/15/2024 by Alfonso Jay [place] [facility] [place]: Aorta [employer] 03/20/2027 [facility] / / [id number] Description:attached to vein graft documented as of [...] and were consensually agreed upon. Care Teams Assistant Product Manager Relationship Specialty Start Date End Date Jasmina Taylor MD [address] [place] [address] [place] [address] PCP - General Family Medicine 05/07/24 documented as of this encounter
--- OUTSIDE RECORDS SUMMARY | 2024-06-27 21:05 | External Medical Summary | Summary of Care ---
Author Name Unknown Organization [facility] Address [address] [place] [address] Phone [phone] Care Team Providers Care Department Editor Name Role Phone Jasmina Taylor MD Primary Care Provide r Reason for Visit * Reason Onset Date Comments Advice 06/17/[address] Taylor Encounter Details Date Type Department Care Team (Late st Contact Info) Description 06/17/2024 Telephone Family [address] [phone] Jasmina Taylro MD [address] [place] [address] [place] [phone] Advice (Rev w Dr. [...] mRNA, LNP-s, No Pre serve, 2-Dose Series ([employer]) 08/22/2021,12/14/2020,11/23/2020 COVID-19, LNP-s, No Preserve , Clive-sucrose, Ages 12+ (Pfizer) 02/13/2022 COVID-19, MRNA-LNP, 23-24, P F, 30 MCG/0.3 mL, 12 YRS AND ABOVE, IM ([email or web address] / [facility]) 08/23/2023 Covid-19, Mrna, Lnp-s, Pf, B ivalent, 30 Mcg, IM, 12 yrs and above (Realty Mogul) 07/24/2022 Pneumococcal Conjugate Vacc, 13 Valent (Prevnar) [...] encounter Miscellaneous Notes * Telephone Encounter - Jasmina Taylor MD [...] Description 06/18/2024 1:30 PM EDT [facility] [address] [address] German Laboy DO [address] [place] [address] 06/24/2024 1:00 PM EDT Office Visit Cardiothoracic Surg [facility] [address] [place] [address] Alfonso Jay MD [address] [place] [address] 06/25/2024 1:00 PM EDT [facility] [address] [address] Theron Hester PA-C [address] [place] [address] 07/02/2024 9:30 AM EDT Office Visit Cardiology [address] [place] [address] Sarah Antoine PA-C [address] [place] [address] 08/05/2024 10:00 AM EDT Home Visit [facility] at [facility] [address] [place] [address] Sarah Manuel, TAWANNA [address] [place] [address] 08/25/2024 1:40 PM EST Office Visit Family Medicine [address] [place] [phone] Jasmina Taylor MD [address] [place] [address] [place] [address] 10/05/2024 2:00 PM EST [facility] [place] [address] Martha Porter CRNP [address] [place] [address] 01/20/2025 3:20 PM EDT Office Visit Dermatology [address] [place] [address] Carolynn Dailey PA-C [address] [place] [address] [place] [address] 06/18/2025 10:00 AM EDT Nurse Only Ancillary [address] [place] [address] [place], Nurse [facility] [address] [place] [address] [place] [address] Scheduled Procedures Name Priority Associated Diagnoses Date/Ti [...] this encounter Medical Devices Implanted Type Area Internist Medical Doctor Md Device Identifier Shelf Expiration Date Model / Serial / Lot Suture Steel 6 B&S19 M654g - [id number] Implanted:Qty: 7 on 05/15/2024 by Alfonso Jay MD at [place] [facility] [place] N/A: Sternum JNJ : [employer] 08/20/2028 M654G / / TMMAST Marker Coronary - [id number] Implanted:Qty: 1 on 05/15/2024 by Alfonso Jay MD at [place] [facility] [place] N/A: Aorta [employer] 04/19/2027 [facility] / / [id number] Description:attached to vein graft Marker Coronary - [id number] Implanted:Qty: 1 on 05/15/2024 by Alfonso Jay MD at [place] [facility] [place] N/A: Aorta [employer] 03/20/2027 [facility] / / [id number] Description:attached to vein graft documented as of [...] and were consensually agreed upon. Care Teams Department Editor Relationship Specialty Start Date End Date Jasmina Taylor MD [address] [place] [address] [place] [address] PCP - General Family Medicine 05/07/24 documented as of this encounter
--- OUTSIDE RECORDS SUMMARY | 2024-06-27 21:05 | External Medical Summary | Summary of Care ---
Author Name Unknown Organization [facility] Address [address] [facility] [place] [address] Phone [phone] Care Team Providers Care Keg Raiser Name Role Phone Jasmina Taylor MD Primary Care Provide r Reason for Visit * Reason Comments Outpatient Testing Encounter Details Date Type Department Care Team (Late st Contact Info) Description 06/17/2024 10:20 AM EDT Laboratory Laboratory [address] [place] [phone] [place] [address] Hospital discharge follow-up Allergies Active Allergy Reactions Criticality Noted Date [...] mRNA, LNP-s, No Pre serve, 2-Dose Series ([employer]) 08/22/2021,12/14/2020,11/23/2020 COVID-19, LNP-s, No Preserve , Clive-sucrose, Ages 12+ (Pfizer) 02/13/2022 COVID-19, MRNA-LNP, 23-24, P F, 30 MCG/0.3 mL, 12 YRS AND ABOVE, IM (invi-Comirnat) 08/23/2023 Covid-19, Mrna, Lnp-s, Pf, B ivalent, 30 Mcg, IM, 12 yrs and above (Everypost) 07/24/2022 Pneumococcal Conjugate Vacc, 13 Valent (Prevnar) [...] 06/18/2024 1:30 PM EDT Office Visit Cardiology, [facility] [address] [place] [address] German Laboy, [address] [place] [address] 06/24/2024 1:00 PM EDT Office Visit Cardiothoracic Surg [facility] [address] [place] [address] Alfonso Jay MD [address] [place] [address] 06/25/2024 1:00 PM EDT [facility] [address] [place] [address] Theron Hester PA-C [address] [place] [address] 07/02/2024 9:30 AM EDT Office Visit Cardiology [address] [place] [address] Sarah Antoine PA-C [address] [place] [address] 08/05/2024 10:00 AM EDT [facility] [address] [place] [address] Sarah Manuel RN [address] [place] [address] 08/25/2024 1:40 PM EST Office Visit Family Medicine [address] [place] [phone] Jasmina Taylor MD [address] [place] [address] [place] [address] 10/05/2024 2:00 PM EST Office Visit Gastroenterology, [facility] [address] [place] [address] Martha Porter CRNP [address] [address] 01/20/2025 3:20 PM EDT Office Visit Dermatology [address] [place] [address] Carolynn Dailey PA-C [address] [place] [address] [place] [address] 06/18/2025 10:00 AM EDT Nurse Only Ancillary Amilcar Vann [address] [place] [address] [place] Nurse Annual [address] [place] [address] Pending Results Name Type Priority Associated Diagnoses Date /Time CBC Lab Routine Hospital discharge follow-up 06/17/2024 10:17 AM EDT BASIC METABOLIC PANEL Lab Routine Hospital discharge follow-up 06/17/2024 10:17 AM EDT Scheduled Procedures Name Priority Associated [...] this encounter Medical Devices Implanted Type Area Primary Class Teacher Device Identifier Shelf Expiration Date Model / Serial / Lot Suture Steel 6 B&S19 M654g - [id number] Implanted:Qty: 7 on 05/15/2024 by Alfonso Jay MD at OR [facility] N/A: Sternum JNJ : [employer] 08/20/2028 M654G / / TMMAST Marker Coronary - [id number] Implanted:Qty: 1 on 05/15/2024 by Alfonso Jay MD at OR [facility] N/A: Aorta [employer] 04/19/2027 [facility] / / [id number] Description:attached to vein graft Marker Coronary - [id number] Implanted:Qty: 1 on 05/15/2024 by Alfonso Jay MD at OR [facility] N/A: Aorta [employer] 03/20/2027 [facility] / / [id number] Description:attached to vein graft documented as of this encounter Visit Diagnoses Diagnosis Hospital discharge follow-up Other follow-up examination documented in this encounter Advance Directives * [...] and were consensually agreed upon. Care Teams Keg Raiser Relationship Specialty Start Date End Date Jasmina Taylor MD [address] [place] [address] [place] [address] PCP - General Family Medicine 05/07/24 documented as of this encounter
--- OUTSIDE RECORDS SUMMARY | 2024-06-27 21:06 | External Medical Summary | Summary of Care ---
Author Name Unknown Organization [facility] Address [address] [place] [address] Phone [phone] Care Team Providers Care Industrial Furnace Fabricator Name Role Phone Jasmina Taylor MD Primary Care Provide r Encounter Details Date Type Department Care Team (Late st Contact Info) Description 06/15/2024 Population Health External Data Unspecified Department Allergies Active Allergy Reactions Criticality Noted Date Comments Baclofen 04/26/2022 Vertigo/extreme dizziness Codeine 02/18/2013 "deathly sick" Levofloxacin Nausea/vomiting 08/12/2018 Sulfa Antibiotics 08/25/2001 Rash documented as of this encounter (statuses as of 06/15/2024) Medications Medication Sig Dispensed Refills Start Date [...] Active Eliquis 5 MG Oral Tablet 1 Tablet. 06/08/2024 Active documented as of this encounter (statuses as of 06/15/2024) Active Problems Problem Noted Date Diagnosed Date [...] as of this encounter (statuses as of 06/15/2024) Resolved Problems Problem Noted Date Diagnosed Date [...] as of this encounter (statuses as of 06/15/2024) Immunizations Name Administration Dates Next Due COVID-19 mRNA, LNP-s, No Pre serve, 2-Dose Series ([employer]) 08/22/2021,12/14/2020,11/23/2020 COVID-19, LNP-s, No Preserve , Clive-sucrose, Ages 12+ (Pfizer) 02/13/2022 COVID-19, MRNA-LNP, 23-24, P F, 30 MCG/0.3 mL, 12 YRS AND ABOVE, IM ([facility]) 08/23/2023 Covid-19, Mrna, Lnp-s, Pf, B ivalent, 30 Mcg, IM, 12 yrs and above ([employer]) 07/24/2022 Pneumococcal Conjugate Vacc, 13 Valent (Prevnar) [...] 06/17/2024 9:00 AM EDT Nurse Only Ancillary [address] [place] [address] [place], Nurse [address] [place] [address] 06/18/2024 9:00 AM EDT Office Visit Family Medicine [address] [place] [phone] Brody Tran MD [address] [place] [address] [place] [address] 06/18/2024 1:30 PM EDT Office Visit Cardiology, [facility] [address] [place] [address] German Laboy, DO [address] [place] [address] 06/24/2024 1:00 PM EDT Office Visit Cardiothoracic Surg [facility] [address] [place] [address] Alfonso Jay MD [address] [place] [address] 07/02/2024 9:30 AM EDT Office Visit Cardiology [address] [place] [address] Sarah Antoine PA-C [address] [place] [address] 08/25/2024 1:40 PM EST Office Visit Family Medicine [address] [place] [phone] Jasmina Taylor MD [address] [place] [address] [place] [address] 10/05/2024 2:00 PM EST Office Visit Gastroenterology, [facility] [address] [place] [address] Martha Porter CRNP [address] [place] [address] Scheduled Procedures Name Priority Associated Diagnoses Date/Ti [...] this encounter Medical Devices Implanted Type Area Buyer Grain Device Identifier Shelf Expiration Date Model / Serial / Lot Suture Steel 6 B&S19 M654g - [id number] Implanted:Qty: 7 on 05/15/2024 by Alfonso Jay MD [place] [facility] N/A: Sternum JNJ : [employer] 08/20/2028 M654G / / TMMAST Marker Coronary - [id number] Implanted:Qty: 1 on 05/15/2024 by Alfonso Jay MD [place] [facility] N/A: Aorta [employer] 04/19/2027 [facility] / / [id number] Description:attached to vein graft Marker Coronary - [id number] Implanted:Qty: 1 on 05/15/2024 by Alfonso Jay MD [place] [facility] N/A: Aorta [employer] 03/20/2027 [facility] / / [id number] Description:attached to vein graft documented as of [...] and were consensually agreed upon. Care Teams Industrial Furnace Fabricator Relationship Specialty Start Date End Date Jasmina Taylor MD [address] [place] [address] [place] [address] PCP - General Family Medicine 05/07/24 documented as of this encounter
--- OUTSIDE RECORDS SUMMARY | 2024-06-27 21:06 | External Medical Summary | Summary of Care ---
Author Name Unknown Organization [facility] Address [address] [place] [address] Phone [phone] Care Team Providers Care Folder Machine Name Role Phone Jasmina Taylor MD Primary Care Provide r Reason for Visit * Reason Onset Date Comments Appointment 06/15/2024 Encounter Details Date Type Department Care Team (Late st Contact Info) Description 06/15/2024 Telephone [facility] [place] [address] [place] [address] Services, Scheduling [address] [place] [address] Appointment (//) Allergies Active Allergy Reactions Criticality Noted Date [...] mRNA, LNP-s, No Pre serve, 2-Dose Series ([employer]) 08/22/2021,12/14/2020,11/23/2020 COVID-19, LNP-s, No Preserve , Clive-sucrose, Ages 12+ (Pfizer) 02/13/2022 COVID-19, MRNA-LNP, 23-24, P F, 30 MCG/0.3 mL, 12 YRS AND ABOVE, IM ([employer]-Comirnat) 08/23/2023 Covid-19, Mrna, Lnp-s, Pf, B ivalent, 30 Mcg, IM, 12 yrs and above ([employer]) 07/24/2022 Pneumococcal Conjugate Vacc, 13 Valent (Prevnar) [...] encounter Miscellaneous Notes * Telephone Encounter - Gilles Richter OSA - 06/15/2024 11:48 AM EDT [facility] Engagement Attempt Engagement: Engagement Attempt 1: Contacted - Agreed to home-based services Scheduled appointment information: 06/16 & 06/25 Home Information: Has pets Advance Care Planning (ACP): No data was found Has Living Will or Advance Directive: No data was found Anticipated Sub-Program: Focused Care Management (3-9 months) Confirmation of Sub-Program Type (by care fast food team member): No data was found Handoff Information: Current care team notified via: [employer] communication Current telemonitoring equipment: No data was found documented in this encounter Plan of Treatment Upcoming Encounters Date Type Department Care Team (Late st Contact Info) Description 06/16/2024 12:30 PM EDT Home Visit [facility] [place], [facility] [address] [place] [address] Sarah Manuel, RN [address] [place] [address] 06/17/2024 9:00 AM EDT Nurse Only Ancillary [address] [place] [address] [place], Nurse [address] [place] [address] 06/18/2024 1:30 PM EDT Office Visit Cardiology, [facility] [address] [place] [address] German Laboy DO [address] [place] [address] 06/24/2024 1:00 PM EDT Office Visit Cardiothoracic Surg [facility] [address] [place] [address] Alfonso Jay MD [address] [place] [address] 06/25/2024 1:00 PM EDT Home Visit [facility] at [place], [facility] [address] [place] [address] Theron Hester PA-C [address] [place] [address] 07/02/2024 9:30 AM EDT Office Visit Cardiology [address] [place] [address] Sarah Antoine PA-C [address] [place] [address] 08/25/2024 1:40 PM EST Office Visit Family Medicine [address] [place] [phone] Jasmina Taylor MD [address] [place] [address] [place] [address] 10/05/2024 2:00 PM EST Office Visit Gastroenterology, [facility] [address] [place] [address] Martha Porter CRNP [address] [place] [address] Scheduled Procedures Name Priority Associated Diagnoses Date/Ti [...] this encounter Medical Devices Implanted Type Area Insert Operator Device Identifier Shelf Expiration Date Model / Serial / Lot Suture Steel 6 B&S19 M654g - [id number] Implanted:Qty: 7 on 05/15/2024 by Alfonso Jay MD [place] [facility] [place] N/A: Sternum JNJ : [employer] 08/20/2028 M654G / / TMMAST Marker Coronary - [id number] Implanted:Qty: 1 on 05/15/2024 by Alfonso Jay MD at [place] [facility] [place] N/A: Aorta [employer] 04/19/2027 [facility] / / [id number] Description:attached to vein graft Marker Coronary - [id number] Implanted:Qty: 1 on 05/15/2024 by Alfonso Jay MD at [place] [facility] [place] N/A: Aorta [employer] 03/20/2027 [facility] / / [id number] Description:attached to vein graft documented as of [...] and were consensually agreed upon. Care Teams Folder Machine Relationship Specialty Start Date End Date Jasmina Taylor MD [address] [place] [address] [place] [phone] PCP - General Family Medicine 05/07/24 documented as of this encounter
--- OUTSIDE RECORDS SUMMARY | 2024-06-27 21:06 | External Medical Summary | Summary of Care ---
Author Name Unknown Organization [facility] Address [address] [place] [facility] [place] [address] Phone [phone] Care Team Providers Care Asphalt Still Operator Name Role Phone Jasmina Taylor MD Primary Care Provide r Encounter Details Date Type Department Care Team (Late st Contact Info) Description 06/14/2024 Telephone Cardiology, [facility] [address] [place] [address] Nurys Damon CRNP [address] [place] [address] Allergies Active Allergy Reactions Criticality Noted Date [...] mRNA, LNP-s, No Pre serve, 2-Dose Series ([employer]) 08/22/2021,12/14/2020,11/23/2020 COVID-19, LNP-s, No Preserve , Clive-sucrose, Ages 12+ (Pfizer) 02/13/2022 COVID-19, MRNA-LNP, 23-24, P F, 30 MCG/0.3 mL, 12 YRS AND ABOVE, IM (Reaction-Comirnat) 08/23/2023 Covid-19, Mrna, Lnp-s, Pf, B ivalent, 30 Mcg, IM, 12 yrs and above ([employer]) 07/24/2022 Pneumococcal Conjugate Vacc, 13 Valent (Prevnar) [...] encounter Miscellaneous Notes * Telephone Encounter - Nurys Damon CRNP - 06/15/2024 1:05 PM EDT Thank you! * Telephone Encounter - Diaz Potts OSA - 06/15/2024 11:55 AM EDT Appt notes have been changed to HOSP FU. Thank you. * Telephone Encounter - Nurys Damon CRNP - 06/14/2024 1:33 PM EDT Hospital discharge follow up needed. Keep appt with Dr. Laboy on 06/18/2024 as already scheduled. Make note in dispo that its [facility] follow up Patient to have labs on 06/17 Thank you, Nurys documented in this encounter Plan of Treatment Upcoming Encounters Date Type Department Care Team (Late st Contact Info) Description 06/16/2024 12:30 PM EDT [facility] Visit [facility] [place], [facility] [address] [place] [address] Sarah Manuel RN [address] [place] [address] 06/17/2024 9:00 AM EDT Nurse Only Ancillary [address] [place] [address] [place], Nurse [address] [place] [address] 06/18/2024 1:30 PM EDT Office Visit Cardiology, [facility] [address] [place] [address] German Laboy, [address] [place] [address] 06/24/2024 1:00 PM EDT Office Visit Cardiothoracic Surg [facility] [place] [address] [place] [address] Alfonso Jay MD [address] [place] [facility] [place] [address] 06/25/2024 1:00 PM EDT [facility] Visit [facility] [place], [facility] [address] [place] [address] Theron Hester PA-C [address] [place] [address] 07/02/2024 9:30 AM EDT Office Visit Cardiology [address] [place] [address] Sarah Antoine PA-C [address] [place] [address] 08/25/2024 1:40 PM EST Office Visit Family Medicine [address] [place] [phone] Jasmina Taylor MD [address] [place] [address] [place] [address] 10/05/2024 2:00 PM EST Office Visit Gastroenterology, [facility] [address] [place] [address] Martha Porter CRNP [address] [place] [address] Scheduled Orders Name Type Priority Associated Diagnoses Orde r Schedule CBC Lab Routine Hospital discharge follow-up Expected: 06/17/2024, Expires: 06/14/2025 BASIC METABOLIC PANEL Lab Routine Hospital discharge follow-up Expected: 06/17/2024, Expires: 06/14/2025 Scheduled Procedures Name Priority Associated Diagnoses Date/Ti [...] this encounter Medical Devices Implanted Type Area Painter Airbrush Device Identifier Shelf Expiration Date Model / Serial / Lot Suture Steel 6 B&S19 M654g - [id number] Implanted:Qty: 7 on 05/15/2024 by Alfonso Jay MD [place] [facility] [place]/A: Sternum JNJ : [employer] 08/20/2028 M654G / / TMMAST Marker Coronary - [id number] Implanted:Qty: 1 on 05/15/2024 by Alfonso Jay MD [place] [facility] N/A: Aorta [employer] 04/19/2027 [facility] / / [id number] Description:attached to vein graft Marker Coronary - [id number] Implanted:Qty: 1 on 05/15/2024 by Alfonso Jay MD [place] [facility] N/A: Aorta [employer] 03/20/2027 [facility] / / [id number] Description:attached to vein graft documented as of this encounter Visit Diagnoses Diagnosis Hospital discharge follow-up- Primary Other follow-up examination documented in this encounter [...] and were consensually agreed upon. Care Teams Asphalt Still Operator Relationship Specialty Start Date End Date Jasmina Taylor MD [address] [place] [address] [place] [address] PCP - General Family Medicine 05/07/24 documented as of this encounter
--- OUTSIDE RECORDS SUMMARY | 2024-06-27 21:06 | External Medical Summary | Summary of Care ---
Author Name Unknown Organization [facility] Address [address] [facility] [place] [address] Phone [phone] Care Team Providers Care Extension Edger Name Role Phone Jasmina Taylor MD Primary Care Provide r Encounter Details Date Type Department Care Team (Latest Contact Info) Description 05/11/2024 1:10 PM EDT - 05/11/2024 11:59 PM EDT Hospital Encounter Radiology Film File [address] [place] [address] Discharge Disposition: Home - Self Care Allergies Active Allergy Reactions Criticality Noted Date Comments Baclofen 04/26/2022 Vertigo/extreme dizziness Codeine 02/18/2013 "deathly sick" Levofloxacin Nausea/vomiting 08/12/2018 Sulfa Antibiotics 08/25/2001 Rash documented as of this encounter (statuses as of 2024) Medications Medication Sig Dispensed Refills Start Date [...] as of this encounter (statuses as of 2024) Active Problems Problem Noted Date Diagnosed Date [...] as of this encounter (statuses as of 2024) Resolved Problems Problem Noted Date Diagnosed Date [...] as of this encounter (statuses as of 2024) Immunizations Name Administration Dates Next Due COVID-19 mRNA, LNP-s, No Pre serve, 2-Dose Series ([employer]) 08/22/2021,12/14/2020,11/23/2020 COVID-19, LNP-s, No Preserve , Clive-sucrose, Ages 12+ (in[employer]arvo) 02/13/2022 COVID-19, MRNA-LNP, 23-24, P F, 30 MCG/0.3 mL, 12 YRS AND ABOVE, IM ([facility]) 08/23/2023 Covid-19, Mrna, Lnp-s, Pf, [...] No 06/12/2023 Does the household have a [facility] cent[facility] source of income? (Household - for ages [...] 06/17/2024 9:00 AM EDT Nurse Only Ancillary [address] [place] [address] [place], Nurse Annual Wellness [address] [place] [address] [place] [address] 06/18/2024 9:00 AM EDT Office Visit Family Medicine [address] [place] [phone] Brody Tran MD [address] [place] [address] [place] [address] 06/18/2024 1:30 PM EDT Office Visit Cardiology, [facility] [address] [place] [address] German Laboy DO [address] [place] [address] 06/24/2024 1:00 PM EDT Office Visit Cardiothoracic Surg [facility] [address] [place] [address] Alfonso Jay MD [address] [place] [address] 07/02/2024 9:30 AM EDT Office Visit Cardiology [address] [place] [address] Sarah Antoine PA-C [address] [place] [address] 08/25/2024 1:40 PM EST Office Visit Family Medicine [address] [place] [phone] Jasmina Taylor MD [address] [place] [address] [place] [address] 10/05/2024 2:00 PM EST Office Visit Gastroenterology, [facility] [address] [place] [address] Martha Porter CRNP [address] [place] [address] Scheduled Procedures Name Priority Associated Diagnoses Date/Ti [...] this encounter Medical Devices Implanted Type Area Any Commodity Sales Deliverer Device Identifier Shelf Expiration Date Model / Serial / Lot Suture Steel 6 B&S19 M654g - [id number] Implanted:Qty: 7 on 05/15/2024 by Alfonso Jay MD at [place] [facility] N/A: Sternum JNJ : [employer] 08/20/2028 M654G / / TMMAST Marker Coronary - [id number] Implanted:Qty: 1 on 05/15/2024 by Alfonso Jay MD at [place] [facility] N/A: Aorta [employer] 04/19/2027 [facility] / / [id number] Description:attached to vein graft Marker Coronary - [id number] Implanted:Qty: 1 on 05/15/2024 by Alfonso Jay MD at [place] [facility] N/A: Aorta [employer] 03/20/2027 [facility] / / [id number] Description:attached to vein graft documented as of this encounter Procedures Procedure Name Priority Date/Time Associated Diagnosis Comments RADIOLOGY EXAM - GENERAL RAD (IMAGES ONLY,NO REPORT) Routine 05/11/2024 1:10 PM EDT documented in this encounter Results * RADIOLOGY EXAM - GENERAL RAD (IMAGES ONLY,NO REPORT) (05/11/2024 1:10 PM EDT) 05/11/2024 1:07 PM EDT Narrative Scheduling, Silent - 06/12/2024 7:45 PM EDT This is an imaging study not interpreted or resulted by a [facility] or [facility] contracted radiologist. Jasmina Taylor MD RADIOLOGY (RA D GENERAL) documented in this encounter Advance Directives * [...] and were consensually agreed upon. Care Teams Extension Edger Relationship Specialty Start Date End Date Jasmina Taylor MD [address] [place] [address] [place] [phone] PCP - General Family Medicine 05/07/24 documented as of this encounter
--- OUTSIDE RECORDS SUMMARY | 2024-06-27 21:06 | External Medical Summary | Summary of Care ---
Author Name Unknown Organization [facility] Address [address] [place] [address] Phone [phone] Care Team Providers Care International Trade Analyst Name Role Phone Jasmina Taylor MD Primary Care Provide r Reason for Visit * Reason Onset Date Comments Advice 06/06/2024 Encounter Details Date Type Department Care Team (Late st Contact Info) Description 06/06/2024 Telephone Cardiothoracic Surg [facility] [address], [place] [id number] Shayla Colindres PA-C [address], [place] [phone] Advice Allergies Active Allergy Reactions Criticality Noted [...] for Wheezing. 15 g 5 05/25/2024 Active Atenolol 25 MG Oral Tablet (Tenormin)Indicati [...] mRNA, LNP-s, No Pre serve, 2-Dose Series ([employer]) 08/22/2021,12/14/2020,11/23/2020 COVID-19, LNP-s, No Preserve , Clive-sucrose, Ages 12+ (Pfizer) 02/13/2022 COVID-19, MRNA-LNP, 23-24, P F, 30 MCG/0.3 mL, 12 YRS AND ABOVE, IM ([place]a-Comirnat) 08/23/2023 Covid-19, Mrna, Lnp-s, Pf, B ivalent, 30 Mcg, IM, 12 yrs and above ([employer]WORK) 07/24/2022 Pneumococcal Conjugate Vacc, 13 Valent (Prevnar) [...] encounter Miscellaneous Notes * Telephone Encounter - Shayla Colindres PA-C - 06/06/2024 3:03 PM EDT Patient called this evening with concerns of sharp pain in the left side of chest. It sounded like nerve pain from the natural healing process. She also complains of feeling weak and concerned about her BP which she states was 150/100. We discussed going to the emergency room to be seen. BP monitoring, EKG (she did have afib post-op)and possibly and echo. Shayla Colindres PA-C 06/06/2024 3:05 PM documented in this encounter Plan of Treatment Upcoming Encounters Date Type Department Care Team (Late st Contact Info) Description 06/17/2024 9:00 AM EDT Nurse Only Ancillary [address] [place] [address] [place], Nurse [address] [place] [address] 06/18/2024 1:30 PM EDT Office Visit Cardiology, [facility] [address] [place] [address] German Laboy DO [address] [place] [address] 06/24/2024 1:00 PM EDT Office Visit Cardiothoracic Surg [facility] [address] [place] [address] Alfonso Jay MD [address] [place] [address] 06/25/2024 1:00 PM EDT Home Visit [facility] [place], [facility] [address] [place] [address] [address] Theron Hester PA-C [address] [place] [address] [address] 07/02/2024 9:30 AM EDT Office Visit Cardiology [address] [place] [address] Sarah Antoine PA-C [address] [place] [address] 08/05/2024 10:00 AM EDT Home Visit [facility] [place], [facility] [address] [place] [address] Sarah Manuel, RN [address] [place] [address] 08/25/2024 1:40 PM EST Office Visit Family Medicine [address] [place] [phone] Jasmina Taylor MD [address] [place] [address] [place] [id number] 10/05/2024 2:00 PM EST Office Visit [facility], [facility] [place] [address] Martha Porter CRNP [address] [place] [address] Scheduled Procedures Name Priority Associated Diagnoses Date/Ti [...] this encounter Medical Devices Implanted Type Area Lard Tub Washer Device Identifier Shelf Expiration Date Model / Serial / Lot Suture Steel 6 B&S19 M654g - [id number] Implanted:Qty: 7 on 05/15/2024 by Alfonso Jay MD [place] [facility] Sternum JN[place] : [employer] 08/20/2028 M654G / / TMMAST Marker Coronary - [id number] Implanted:Qty: 1 on 05/15/2024 by Alfonso Jay MD [place] [facility] [place]: Aorta [employer] 04/19/2027 [facility] / / [id number] Description:attached to vein graft Marker Coronary - [id number] Implanted:Qty: 1 on 05/15/2024 by Alfonso Jay MD [place] [facility] [place] Aorta [employer] 03/20/2027 [facility] / / [id number] Description:attached to vein graft documented as of [...] and were consensually agreed upon. Care Teams International Trade Analyst Relationship Specialty Start Date End Date Jasmina Taylor MD [address] [place] [address] [place] [id number] PCP - General Family Medicine 05/07/24 documented as of this encounter
[2024-06-27] MEDS: NITROGLYCERIN SL 0.4 MG/TAB TAB ONE (21:18)
[2024-06-27] MEDS: NITROGLYCERIN SL 0.4 MG/TAB TAB SL STA (21:18)
[2024-06-27] MEDS: SODIUM CHLORIDE 0.9% 1,000 ML IV SCH (21:27)
[2024-06-27] MEDS: ASPIRIN CHEW 324 MG PO STA (21:33)
[2024-06-27 21:55] LABS: Basophils # (auto) 0.04 K/uL (0.00-0.20); Basophils % (auto) 0.6 %; Eosinophils # (auto) 0.21 K/uL (0.00-0.50); Eosinophils % (auto) 3.2 %; Hemoglobin 12.3 g/dl (12.0-16.0); Immature Granulocytes # (auto) 0.02 K/uL (0.01-0.20); Immature Granulocytes % (auto) 0.3 %; Lymphocytes # (auto) 1.79 K/uL (1.20-3.40); Lymphocytes % (auto) 27.4 %; Mean Corpuscular Hemoglobin 29.6 pg (25.0-34.0); Mean Corpuscular Hgb Conc 33.2 g/dL (32.0-36.0); Mean Corpuscular Volume 88.9 fL (80.0-100.0); Mean Platelet Volume 10.5 fL (9.4-12.4); Monocytes # (auto) 0.61 K/uL (0.11-0.59); Monocytes % (auto) 9.3 %; Neutrophils # (auto) 3.86 K/uL (1.40-6.50); Neutrophils % (auto) 59.2 %; Platelet Count 210 K/uL (130-400); RDW Standard Deviation 45.3 fL (36.4-46.3); Red Blood Count 4.16 M/uL (4.20-5.40); White Blood Count 6.53 K/ul (4.8-10.8)
[2024-06-27 21:57] LABS: BUN Creatinine Ratio 16.9 (10-20); Calcium 9.1 mg/dl (8.6-10.3); Est GFR (African American) 74.5 ml/min; Est GFR (Non-African American) 64.3 ml/min; Potassium 4.1 mmol/L (3.5-5.1)
[2024-06-27 22:11] LABS: Partial Thromboplastin Time 27 Seconds (21-31); Prothrombin Time 10.5 Seconds (9.0-12.0)
--- NOTE | 2024-06-27 23:25 | Emergency Department Note ---
History of Present Illness General Chief Complaint: Chest Pain Stated Complaint: Chest Pressure Time Seen by Provider: 06/27/24 21:01 History of Present Illness Provider Complaint: chest pain Onset (ago): day(s) 1 Duration: constant Onset: during rest Pain Location: substernal and left chest Pain Radiation: none Severity: moderate Maximum Pain Intensity: 4 Current Pain Intensity: 4 Quality: + aching, + heaviness and + dull Relieved By: + nothing Exacerbated By: + nothing Context: no recent illness, no recent surgery, no recent immobilization, no recent travel, no trauma/injury, no new medications or no history of DVT/PE Associated symptoms: no nausea, no vomiting, no diaphoresis, no dyspnea, no syncope, no palpitations, no fever or no cough Treatments prior to arrival: aspirin Home Medications Medication Instructions Recorded Confirmed Type coenzyme Q10 200 mg capsule (Co 200 mg PO QAM 02/12/19 06/27/24 History Q-10) aspirin 81 mg tablet,delayed 81 mg PO DAILY 08/17/20 06/27/24 History release (Ousmane Low Dose Aspirin) pantoprazole 40 mg tablet,delayed 40 mg PO DAILYBB 08/28/22 06/27/24 History release mirtazapine 15 mg tablet 7.5 mg PO HS 03/04/24 06/27/24 History multivitamin 1 tab PO QAM 03/04/24 06/27/24 History pravastatin 40 mg tablet 40 mg PO HS 03/04/24 06/27/24 History levalbuterol tartrate 45 1 inh inhalation UD PRN Shortness 06/06/24 06/27/24 History mcg/actuation aerosol inhaler Of Breath tramadol 50 mg tablet 25 mg PO Q6H PRN Moderate Pain 06/06/24 06/27/24 History (Scale Score 5-6) metoprolol succinate 25 mg 25 mg PO BID #60 tabs 06/14/24 06/27/24 Rx tablet,extended release 24 hr apixaban 5 mg tablet (Eliquis) 5 mg PO BID 06/27/24 06/27/24 History magnesium oxide 400 mg (241.3 mg 200 mg PO QAM 06/27/24 06/27/24 History magnesium) tablet Allergies Allergy/AdvReac Type Severity Reaction Status Date / Time Sulfa (Sulfonamide Allergy Intermediate Hives Verified 06/27/24 21:32 Antibiotics) codeine AdvReac Intermediate "deathly Verified 06/27/24 21:32 sick and I throw up" levofloxacin [From Levaquin] AdvReac Mild Nausea Verified 06/27/24 21:32 Past Med/Surg History Problem List (Updated 06/27/24 @ 23:45 by Rehan Molina MD) PVCs (premature ventricular contractions) Palpitations Chest pain (Acute) Chills without fever S/P CABG x 3 Pulmonary embolism (Acute) Abnormal nuclear stress test Family history of coronary artery disease (Acute) Chest pain (Acute) Chest pain Acute lower GI bleeding Rectal bleed (Acute) Bronchitis (Acute) Rectal bleeding Gastroenteritis (Acute) History of diverticulitis (Chronic) Encounter for pre-operative examination Diarrhea (Acute) Nausea and vomiting (Acute) Anterior T wave inversion (Acute) Acute electrocardiogram changes (Acute) Abdominal pain, epigastric (Acute) Discharge planning issues Encounter for pre-operative examination GERD (gastroesophageal reflux disease) (Chronic) Osteoarthritis (Chronic) Medical History CAD (coronary artery disease), [place] coronary artery Hypertensive emergency Asthma RARELY USES PRN INH HTN (hypertension) History of basal cell carcinoma Diverticular disease Valvular heart disease "LEAKY VALVE" - FOLLOWS W/ DR. DE SANTIAGO Hypertension Hyperlipidemia Surgical History S/P CABG (coronary artery bypass graft) History of cataract surgery LEFT History of basal cell carcinoma (BCC) excision History of hysterectomy History of esophagogastroduodenoscopy (EGD) History of colonoscopy Family History Sister Diabetes Brother Diabetes Other Heart disease Hypertension Social History Smoking Status: Never smoker Second Hand Exposure: No; Do You Dip or Chew Tobacco: No; Hx Alcohol Use: No Hx Substance Use: No Preferred Language: Sri Lankan Communication Ability: Effective Visual Impairment: Limited Hearing Ability: Normal Anesthesia Assistant Required: No Beliefs That Will Affect Care: None marital status: Current Living Situation: Spouse Current Living Situation Comment: With , own home, [address] Feels Safe at Home: Yes Assistive Devices: Bedside Commode, Cane and Walker Physical Exam Vital Signs Vital Signs - 24 hr 06/27/24 21:00 06/27/24 21:00 06/27/24 21:09 Temperature 36.8 C Temperature Source Oral Pulse Rate 80 82 Pulse Rate from SpO2 Sensor 79 Pulse Rhythm Regular Pulse Strength Normal Respiratory Rate 27 H 24 Respiratory Effort / Characteristics Non-Labored Spontaneous Non-Labored Respiratory Depth Normal Normal Blood Pressure 184/108 H 184/108 H Blood Pressure Mean 133 133 Pulse Oximetry 98 98 Oxygen Delivery Method Room Air Room Air Sepsis Recent Fever Within 48 Hours No Sepsis New/Unexplained Change in Mental Status No Sepsis Action Taken by Nursing No Action Required 06/27/24 21:20 06/27/24 21:33 06/27/24 22:00 Temperature Temperature Source Pulse Rate 80 78 72 Pulse Rate from SpO2 Sensor 78 72 Pulse Rhythm Pulse Strength Respiratory Rate 26 H 22 Respiratory Effort / Characteristics Respiratory Depth Blood Pressure 136/86 127/88 Blood Pressure Mean 102 101 Pulse Oximetry 95 96 Oxygen Delivery Method Room Air Room Air Sepsis Recent Fever Within 48 Hours Sepsis New/Unexplained Change in Mental Status Sepsis Action Taken by Nursing Physical Exam GENERAL: oriented to person, place, and time. appears well-developed and well- nourished. HENT: Exam performed. - Head: Normocephalic and atraumatic. EYES: Conjunctivae and EOM are normal. Right eye exhibits no discharge. Left eye exhibits no discharge. No scleral icterus. NECK: Normal range of motion. Neck supple. No JVD present. CV: Normal rate, regular rhythm, normal heart sounds and intact distal pulses. There is no peripheral edema. Palpable radial pulses bue. PULM/CHEST: Effort normal and breath sounds normal. No respiratory distress. No stridor. no wheezes. no rales. ABD: The abdomen is soft. There is no tenderness. NEURO: Motor and sensation grossly intact. SKIN: Skin is warm and dry. He is not diaphoretic. PSYCH: normal mood and affect. Behavior is normal. Judgment and thought content normal. Course Course 2100: The patient was evaluated in room C7. A complete history and physical exam was performed Cardiac monitoring: An order was placed for continuous cardiac monitoring. The monitor shows a rate of 80 with sinus rhythm interpreted by me 2225: Vital signs stable. Patient reports after 1 sublingual nitroglycerin her pain is resolved. Labs and imaging are unremarkable. [facility]. Administered Medications Sodium Chloride (Nss) 1,000 mls @ 125 mls/hr IV .Q8H [facility] Stop: 07/27/24 21:14 Last Admin: 06/27/24 21:27 Dose: 125 mls/hr Documented By: [facility] Discontinued Medications Aspirin (Aspirin Chew 324 Mg) 324 mg PO NOW STA Stop: 06/27/24 21:06 Last Admin: 06/27/24 21:33 Dose: Not Given Documented By: [facility] Nitroglycerin (Nitroglycerin Sl 0.4 Mg/Tab Tab) Confirm Administered Dose 0.4 mg .ROUTE .STK-MED ONE Stop: 06/27/24 21:11 Last Admin: 06/27/24 21:18 Dose: Not Given Documented By: [facility] Nitroglycerin (Nitroglycerin Sl 0.4 Mg/Tab Tab) 0.4 mg SL NOW STA Stop: 06/27/24 21:11 Last Admin: 06/27/24 21:18 Dose: 0.4 mg Documented By: [facility] Medical Decision Making Laboratory Data Attestation: I reviewed the patient's lab results. 06/27/24 21:29 06/27/24 21:29 Labs: Lab Results 06/27/24 Range/Units 21:29 WBC 6.53 (4.8-10.8) K/ul RBC 4.16 L (4.20-5.40) M/uL Hgb 12.3 (12.0-16.0) g/dl Hct 37.0 (37.0-47.0) % MCV 88.9 (80.0-100.0) fL MCH 29.6 (25.0-34.0) pg MCHC 33.2 (32.0-36.0) g/dL RDW Std Deviation 45.3 (36.4-46.3) fL RDW Coeff of [place] 14.0 (11.5-14.5) % Plt Count 210 (130-400) K/uL MPV 10.5 (9.4-12.4) fL Immature Gran % (Auto) 0.3 % Neut % (Auto) 59.2 % Lymph % (Auto) 27.4 % Hale % (Auto) 9.3 % Eos % (Auto) 3.2 % Baso % (Auto) 0.6 % Neut # (Auto) 3.86 (1.40-6.50) K/uL Lymph # (Auto) 1.79 (1.20-3.40) K/uL Hale # (Auto) 0.61 H (0.11-0.59) K/uL Eos # (Auto) 0.21 (0.00-0.50) K/uL Baso # (Auto) 0.04 (0.00-0.20) K/uL Immature Gran # (Auto) 0.02 (0.01-0.20) K/uL PT 10.5 (9.0-12.0) Seconds INR 1.0 (0.9-1.1) APTT 27 (21-31) Seconds PTT Ratio 1.0 Sodium 139 (136-145) mmol/L Potassium 4.1 (3.5-5.1) mmol/L Chloride 107 (98-107) mmol/L Carbon Dioxide 24 (21-32) mmol/L Anion Gap 8 (3-11) BUN 15 (6-23) mg/dl Creatinine 0.89 (0.6-1.2) mg/dl Est Cr Clr Drug Dosing 61.0 ml/min Est GFR ( Amer) 74.5 ml/min Est GFR (Non-Af Amer) 64.3 ml/min BUN/Creatinine Ratio 16.9 (10-20) Glucose 118 H (70-99(Fasting)) mg/dl Calcium 9.1 (8.6-10.3) mg/dl Troponin I High Sens 10.0 (0-14) pg/ml Lipase 52 (11-82) U/L Imaging Data Chest x-ray: Attestation: I personally reviewed and interpreted this imaging study as follows: My impression: Chest x-ray negative. Airway clear. No pneumothorax. No consolidation. No cardiomegaly or cephalization.. No free air under the diaphragm. No fractures of the skeletal structures. ECG Data Attestation: I personally reviewed and interpreted this ECG as follows: Indication: chest pain Rate (beats per minute): 79 Rhythm: normal sinus Findings: no ST depression, no ST elevation or no prolonged QT Additional Comments: Left ventricular hypertrophy [facility] Narrative 1422: The patient was evaluated in room C7. A complete history and physical exam was performed Cardiac monitoring: An order was placed for continuous cardiac monitoring. The monitor shows a rate of 80 with sinus rhythm interpreted by me 2225: Vital signs stable. Patient reports after 1 sublingual nitroglycerin her pain is resolved. Labs and imaging are unremarkable. Patient be admitted to the [facility] hospitalist team for chest pain rule out ACS. Impression & Plan Chest pain Discharge Plan Visit Data Chief Complaint: Chest Pain Stated Complaint: Chest Pressure ED Provider: Rehan Molina Discharge Problem: Chest pain Patient Disposition: Being Evaluated by Hospitalist Forms Stand Alone Forms: [facility] Prescriptions Prescriptions: No Action coenzyme Q10 [Co Q-10] 200 mg Capsule 200 mg PO QAM aspirin [Ousmane Low Dose Aspirin] 81 mg Tablet,Delayed Release (Dr/Ec) 81 mg PO DAILY pantoprazole 40 mg tablet,delayed release (DR/EC) 40 mg PO DAILYBB multivitamin Tablet 1 tab PO QAM pravastatin 40 mg tablet 40 mg PO HS mirtazapine 15 mg tablet 7.5 mg PO HS Eliquis 5 mg tablet 5 mg PO BID Rx Instructions: Take 10 mg (2 tabs) twice a day for 7 days and then take 5 mg (1 tab) twice a day starting 06/15/24 until instructed to stop magnesium oxide 400 mg (241.3 mg magnesium) tablet 200 mg PO QAM tramadol 50 mg tablet 25 mg PO Q6H PRN (Reason: Moderate Pain (Scale Score 5-6)) levalbuterol tartrate 45 mcg/actuation HFA aerosol inhaler 1 inh INHALATION UD PRN (Reason: Shortness Of Breath) metoprolol succinate 25 mg Tablet Extended Release 24 Hr 25 mg PO BID Qty: 60 1RF Referrals Referrals: Jasmina Taylor MD [Primary Care Provider] - Discharge Problem: Chest pain Qualifiers: Chest pain type: unspecified Qualified Code(s): R07.9 - Chest pain, unspecified
--- NOTE | 2024-06-28 00:09 | History & Physical Report ---
Date of Service June 27, 2024 Assessment & Plan (1) Chest pain: Plan: 74-year-old female with past medical history significant for hyperlipidemia, multinodular thyroid, mild intermittent asthma, seasonal allergic rhinitis, hiatal hernia, hypertension, frequent PVCs, multiple vessel coronary artery disease status post CABG recently, GERD, pulmonary hypertension, CKD stage III, general osteoarthritis of multiple sites, history of C. difficile infection, pr imary insomnia comes with chest pressure. Patient had CABG x 3 at [place] at the end of April 2024. Postop course was complicated with episode of A-fib which was resolved. She was placed on amiodarone and Lasix for 1 month. She came to the ER on June 06 for chest pain and diagnosed acute pulmonary embolism and was placed on Eliquis. Patient was again admitted June 11 for lightheadedness and chills thought to be from symptomatic PVCs atenolol was changed to metoprolol succinate 25 mg twice daily and was discharged. Comes today again with chest pressure left-sided chest started around noon time. The chest pressure was about 4/10 in severity. It was constant. Associated with some chills. Denies any headache. No dizziness. No nausea. No sweating. Denies any shortness of breath. After nitro the pain subsided. Denies any fevers. No cough. Vision is okay. No runny nose or sore throat. Appetite is okay. No abdominal pain. Normal bladder movements. States she had episode of diarrhea and hemorrhoidal bleed yesterday which is resolved currently. Ambulating okay as per patient. Currently resting comfortably and hemodynamically stable. Chest pressure Resolved after nitro Initial workup unremarkable Recent CABG Will observe in med/telemetry N.p.o. Serial cardiac enzymes and repeat EKG Recently had echo. Repeat echo as per cardiology Consult cardiology in a.m. for further recommendations CAD status post CABG On aspirin, metoprolol succinate and pravastatin History of recent PE Postop On Eliquis Hypertension On metoprolol succinate Will monitor History of atrial fibrillation Post op , got resolved Currently on metoprolol succinate Also on Eliquis. Hyperlipoidemia on statin History of PVCs On metoprolol succinate History of mild intermittent asthma Continue home inhalers Hiatal hernia GERD On Protonix DVT prophylaxis On Eliquis Disposition Observation med/telemetry Full code. History of Present Illness Chief Complaint: Chest pain Primary Care Provider: Jasmina Taylor MD 74-year-old female with past medical history significant for hyperlipidemia, multinodular thyroid, mild intermittent asthma, seasonal allergic rhinitis, hiatal hernia, hypertension, frequent PVCs, multiple vessel coronary artery disease status post CABG recently, GERD, pulmonary hypertension, CKD stage III, general osteoarthritis of multiple sites, history of C. difficile infection, primary insomnia comes with chest pressure. Patient had CABG x 3 at [place] at the end of April 2024. Postop course was complicated with episode of A-fib which was resolved. She was placed on amiodarone and Lasix for 1 month. She came to the ER on June 06 for chest pain and diagnosed acute pulmonary embolism and was placed on Eliquis. Patient was again admitted June 11 for lightheadedness and chills thought to be from symptomatic PVCs atenolol was changed to metoprolol succinate 25 mg twice daily and was discharged. Comes today again with chest pressure left-sided chest started around noon time. The chest pressure was about 4/10 in severity. It was constant. Associated with some chills. Denies any headache. No dizziness. No nausea. No sweating. Denies any shortness of breath. After nitro the pain subsided. Denies any fevers. No cough. Vision is okay. No runny nose or sore throat. Appetite is okay. No abdominal pain. Normal bladder movements. States she had episode of diarrhea and hemorrhoidal bleed yesterday which is resolved currently. Ambulating okay as per patient. Currently resting comfortably and hemodynamically stable. Past medical history. As mentioned above Past surgical history. CABG. Colonoscopy. EGD. Lithotripsy. Bladder tacking. Partial hysterectomy. Social history. . No smoking. No alcohol use. No drug use. Family history. Father had thyroid cancer. of brain aneurysm. Mother had diabetes. Ulcerative colitis. [place]. Hypertension. Hypothyroidism. Brother has diabetes. Hypothyroidism. Sister has diabetes. CHF. Hypothyroidism. Allergies Allergy/AdvReac Type Severity Reaction Status Date / Time Sulfa (Sulfonamide Allergy Intermediate Hives Verified 06/27/24 21:32 Antibiotics) codeine AdvReac Intermediate "deathly Verified 06/27/24 21:32 sick and I throw up" levofloxacin [From Levaquin] AdvReac Mild Nausea Verified 06/27/24 21:32 Home Medications Medication Instructions Recorded Confirmed Type coenzyme Q10 200 mg capsule (Co 200 mg PO QAM 02/12/19 06/27/24 History Q-10) aspirin 81 mg tablet,delayed 81 mg PO DAILY 08/17/20 06/27/24 History release ([place] Low Dose Aspirin) pantoprazole 40 mg tablet,delayed 40 mg PO DAILYBB 08/28/22 06/27/24 History release mirtazapine 15 mg tablet 7.5 mg PO HS 03/04/24 06/27/24 History multivitamin 1 tab PO QAM 03/04/24 06/27/24 History pravastatin 40 mg tablet 40 mg PO HS 03/04/24 06/27/24 History levalbuterol tartrate 45 1 inh inhalation UD PRN Shortness 06/06/24 06/27/24 History mcg/actuation aerosol inhaler Of Breath tramadol 50 mg tablet 25 mg PO Q6H PRN Moderate Pain 06/06/24 06/27/24 History (Scale Score 5-6) metoprolol succinate 25 mg 25 mg PO BID #60 tabs 06/14/24 06/27/24 Rx tablet,extended release 24 hr apixaban 5 mg tablet (Eliquis) 5 mg PO BID 06/27/24 06/27/24 History magnesium oxide 400 mg (241.3 mg 200 mg PO QAM 06/27/24 06/27/24 History magnesium) tablet Past Med/Surg History Problem List (Updated 06/27/24 @ 23:45 by Rehan Molina MD) PVCs (premature ventricular contractions) Palpitations Chest pain (Acute) Chills without fever S/P CABG x 3 Pulmonary embolism (Acute) Abnormal nuclear stress test Family history of coronary artery disease (Acute) Chest pain (Acute) Chest pain Acute lower GI bleeding Rectal bleed (Acute) Bronchitis (Acute) Rectal bleeding Gastroenteritis (Acute) History of diverticulitis (Chronic) Encounter for pre-operative examination Diarrhea (Acute) Nausea and vomiting (Acute) Anterior T wave inversion (Acute) Acute electrocardiogram changes (Acute) Abdominal pain, epigastric (Acute) Discharge planning issues Encounter for pre-operative examination GERD (gastroesophageal reflux disease) (Chronic) Osteoarthritis (Chronic) Medical History CAD (coronary artery disease), [place] coronary artery Hypertensive emergency Asthma RARELY USES PRN INH HTN (hypertension) History of basal cell carcinoma Diverticular disease Valvular heart disease "LEAKY VALVE" - FOLLOWS W/ DR. DE SANTIAGO Hypertension Hyperlipidemia Surgical History S/P CABG (coronary artery bypass graft) History of cataract surgery LEFT History of basal cell carcinoma (BCC) excision History of hysterectomy History of esophagogastroduodenoscopy (EGD) History of colonoscopy Family History Sister Diabetes Brother Diabetes Other Heart disease Hypertension Social History Smoking Status: Never smoker Second Hand Exposure: No; Do You Dip or Chew Tobacco: No; Hx Alcohol Use: No Hx Substance Use: No Preferred Language: Samoan Communication Ability: Effective Visual Impairment: Limited Hearing Ability: Normal Computer Project Manager Required: No Beliefs That Will Affect Care: None marital status: Current Living Situation: Spouse Current Living Situation Comment: With , own home, [address] Feels Safe at Home: Yes Safety Concerns: Feels Safe At This Time Assistive Devices: Bedside Commode, Cane and Walker Review of Systems Review of Systems: All systems reviewed & are unremarkable except as noted in HPI & below Physical Exam Physical Exam: General- Not in distress Head- atraumatic Eyes- PERRL. ENT- oropharynx clear Neck- supple, no JVD. Lungs- clear to auscultation no wheezing or crackles Heart- regular rate and rhythm; no murmur, no gallop. Abdomen- normal bowel sounds, soft, nontender, no distension Extremities- no pretibial edema, no erythema seen Neuro- alert, oriented x 3; PERRL, no facial palsy; no dysarthria; moves extremities Results & Data Results & Data Vital Signs (Past 12 Hours) Vital Signs Temp Pulse Resp BP Pulse Ox O2 Del Method 06/27/24 22:00 72 22 127/88 96 Room Air 06/27/24 21:33 78 26 H 136/86 95 Room Air 06/27/24 21:20 80 06/27/24 21:09 82 24 184/108 H 98 Room Air 06/27/24 21:00 36.8 C 80 27 H 184/108 H 98 Room Air Diagnostic Findings Laboratory Results WBC 6.53 K/ul (4.8-10.8) 06/27/24 21: RBC 4.16 M/uL (4.20-5.40) L 06/27/24 21: Hgb 12.3 g/dl (12.0-16.0) 06/27/24 21: Hct 37.0 % (37.0-47.0) 06/27/24 21: MCV 88.9 fL (80.0-100.0) 06/27/24 21: MCH 29.6 pg (25.0-34.0) 06/27/24: MCHC 33.2 g/dL (32.0-36.0) 06/27/24: RDW Std Deviation 45.3 fL (36.4-46.3) 06/27/24: RDW Coeff of [place] 14.0 % (11.5-14.5) 06/27/24: Plt Count 210 K/uL (130-400) 06/27/24 21: MPV 10.5 fL (9.4-12.4) 06/27/24 21: Immature Gran % (Auto) 0.3 % 06/27/24 21: Neut % (Auto) 59.2 % 06/27/24 21: Lymph % (Auto) 27.4 % 06/27/24 21: [place] % (Auto) 9.3 % 06/27/24 21: Eos % (Auto) 3.2 % 06/27/24: Baso % (Auto) 0.6 % 06/27/24: Neut # (Auto) 3.86 K/uL (1.40-6.50) 06/27/24 21: Lymph # (Auto) 1.79 K/uL (1.20-3.40) 06/27/24: [place] # (Auto) 0.61 K/uL (0.11-0.59) H 06/27/24 21:29 Eos # (Auto) 0.21 K/uL (0.00-0.50) 06/27/24 21: Baso # (Auto) 0.04 K/uL (0.00-0.20) 06/27/24 21:29 Immature Gran # (Auto) 0.02 K/uL (0.01-0.20) 06/27/24 21: PT 10.5 Seconds (9.0-12.0) 06/27/24 21:29 INR 1.0 (0.9-1.1) 06/27/24 21: APTT 27 Seconds (21-31) 06/27/24 21: PTT Ratio 1.0 06/27/24 21:29 Sodium 139 mmol/L (136-145) 06/27/24 21:29 Potassium 4.1 mmol/L (3.5-5.1) 06/27/24 21: Chloride 107 mmol/L (98-107) 06/27/24 21: Carbon Dioxide 24 mmol/L (21-32) 06/27/24 21: Anion Gap 8 (3-11) 06/27/24 21:29 BUN 15 mg/dl (6-23) 06/27/24 21: Creatinine 0.89 mg/dl (0.6-1.2) 06/27/24 21:29 Est Cr Clr Drug Dosing 61.0 ml/min 06/27/24 21:29 Est GFR ( Amer) 74.5 ml/min 06/27/24 21: Est GFR (Non-Af Amer) 64.3 ml/min 06/27/24 21:29 BUN/Creatinine Ratio 16.9 (10-20) 06/27/24 21:29 Glucose 118 mg/dl (70-99(Fasting)) H 06/27/24 21:29 Calcium 9.1 mg/dl (8.6-10.3) 06/27/24 21:29 Troponin I High Sens 10.0 pg/ml (0-14) 06/27/24 21: Lipase 52 U/L (11-82) 06/27/24 21:29 Code Status & VTE Plan VTE Prophylaxis Plan VTE Prophylaxis will be ordered: Yes (1) Chest pain Chest pain type: unspecified Qualified Code(s): R07.9 - Chest pain, unspecified
[2024-06-28] MEDS ORDERED: traMADol HCL 50 MG TABLET PO PRN (03:07)
[2024-06-28] MEDS ORDERED: NITROGLYCERIN SL 0.4 MG/TAB TAB SL PRN (03:07)
[2024-06-28] MEDS ORDERED: ACETAMINOPHEN 325 MG TAB PO PRN (03:07)
[2024-06-28] MEDS ORDERED: LEVALBUTEROL TARTRATE 15 GM HFA.AER.AD INH PRN (03:07)
[2024-06-28 05:18] LABS: Basophils # (auto) 0.04 K/uL (0.00-0.20); Basophils % (auto) 0.6 %; Eosinophils # (auto) 0.24 K/uL (0.00-0.50); Eosinophils % (auto) 3.3 %; Hematocrit (blood only) 33.7 % (37.0-47.0); Immature Granulocytes # (auto) 0.02 K/uL (0.01-0.20); Immature Granulocytes % (auto) 0.3 %; Lymphocytes # (auto) 1.91 K/uL (1.20-3.40); Lymphocytes % (auto) 26.6 %; Mean Corpuscular Hemoglobin 29.3 pg (25.0-34.0); Mean Corpuscular Hgb Conc 32.6 g/dL (32.0-36.0); Mean Corpuscular Volume 89.9 fL (80.0-100.0); Mean Platelet Volume 10.3 fL (9.4-12.4); Monocytes % (auto) 8.3 %; Neutrophils # (auto) 4.38 K/uL (1.40-6.50); Neutrophils % (auto) 60.9 %; Platelet Count 200 K/uL (130-400); RDW Coefficient of Variation 14.2 % (11.5-14.5); RDW Standard Deviation 46.4 fL (36.4-46.3); Red Blood Count 3.75 M/uL (4.20-5.40); White Blood Count 7.19 K/ul (4.8-10.8)
[2024-06-28 05:33] LABS: BUN Creatinine Ratio 16.7 (10-20); Creatinine Clr Calc Pharmacy 69.6 ml/min; Est GFR (African American) 87.4 ml/min; Est GFR (Non-African American) 75.4 ml/min; Magnesium 1.8 mg/dl (1.7-2.4)
--- NOTE | 2024-06-28 07:45 | XRay Report ---
XR chest 1V portable HISTORY: 74 years-old Female Chest pain, nonspecific COMPARISON: 06/11/2024 TECHNIQUE: AP view of the chest FINDINGS: Cardiac silhouette is enlarged. Median sternotomy. Mild chronic interstitial coarsening. There is no pneumothorax, pleural effusion or airspace consolidation. The bones appear intact. IMPRESSION: Cardiomegaly without acute process. ACT 112: Negative or not required by law. The above report was generated using voice recognition software. It may contain grammatical, syntax o r spelling errors. Electronically signed by: Ld Coy M.D. 06/28/2024 7:44 AM
[2024-06-28] MEDS: PANTOprazole 40 MG TAB PO SCH (08:55)
[2024-06-28] MEDS: MULTIVITAMIN TAB PO SCH (08:55)
[2024-06-28] MEDS: ASPIRIN 81 MG ECTAB PO SCH (08:57)
[2024-06-28] MEDS: METOPROLOL SUCC 25MG EXT REL TAB PO SCH (08:57)
[2024-06-28] MEDS: APIXABAN 5 MG TABLET PO SCH (08:58)
[2024-06-28] MEDS: MAGNESIUM OXIDE 400 MG TAB PO SCH (08:58)
[2024-06-28] MEDS ORDERED: NON-FORMULARY MEDICATION (Coenzyme Q10 [Co Q-10] 200 mg Capsule) PO SCH (09:00)
--- NOTE | 2024-06-28 13:16 | Hospitalist Progress Note ---
Date of Service June 28, 2024 Assessment & Plan (1) Chest pain: Plan: per admitting service notes with addendum: 74-year-old female with past medical history significant for hyperlipidemia, multinodular thyroid, mild intermittent asthma, seasonal allergic rhinitis, hiatal hernia, hypertension, frequent PVCs, multiple vessel coronary artery disease status post CABG recently, GERD, pulmonary hypertension, CKD stage III, general osteoarthritis of multiple sites, history of C. difficile infection, primary insomnia comes with chest pressure. Patient had CABG x 3 at [facility] at the end of April 2024. Postop course was complicated with episode of A-fib which was resolved. She was placed on amiodarone and Lasix for 1 month. She came to the ER on June 06 for chest pain and diagnosed acute pulmonary embolism and was placed on Eliquis. Patient was again admitted June 11 for lightheadedness and chills thought to be from symptomatic PVCs atenolol was changed to metoprolol succinate 25 mg twice daily and was discharged. Comes today again with chest pressure left-sided chest started around noon time. The chest pressure was about 4/10 in severity. It was constant. Associated with some chills. Denies any headache. No dizziness. No nausea. No sweating. Denies any shortness of breath. After nitro the pain subsided. Denies any fevers. No cough. Vision is okay. No runny nose or sore throat. Appetite is okay. No abdominal pain. Normal bladder movements. States she had episode of diarrhea and hemorrhoidal bleed yesterday which is resolved currently. Ambulating okay as per patient. Currently resting comfortably and hemodynamically stable. Chest pressure Resolved after nitro Initial workup unremarkable Recent CABG Will observe in med/telemetry N.p.o. Serial cardiac enzymes and repeat EKG Recently had echo. Repeat echo as per cardiology Consult cardiology in a.m. for further recommendations 06/28 trop negative x 2 EKG no acute ischemia echo: pending Cardiology consulted CAD status post CABG On aspirin, metoprolol succinate and pravastatin History of recent PE Postop On Eliquis Hypertension On metoprolol succinate Will monitor History of atrial fibrillation Post op , got resolved Currently on metoprolol succinate Also on Eliquis. Hyperlipoidemia on statin History of PVCs On metoprolol succinate History of mild intermittent asthma Continue home inhalers Hiatal hernia GERD On Protonix DVT prophylaxis On Eliqu Disposition Observation med/telemetry Full code. Admission and Anticipated Discharge Date Admission Date: June 27, 2024 Subjective Follow-up for chest pain, etc. Seen sitting up in bed, comfortable, not in distress States he feels fine overall No recurrence of chest pain since admission No shortness of breath, palpitations, dizziness No abdominal pain, nausea vomiting No other new symptoms Review of Systems Review of Systems: all noted and negative except for above Physical Exam Physical Exam: General- oriented x 3, not in distress, speaks in sentences with no effort or accessory muscle use Eyes- anicteric Neck- no JVD Lungs- clear breath sounds bilaterally, no rales/wheezes Heart- normal rate, regular rhythm; no murmurs Abdomen- normal bowel sounds, nondistended, soft, no tenderness Extremities- no pretibial edema, no calf tenderness Neuro- alert, oriented x 3; no gross focal neurologic deficits Skin- warm & dry Results & Data Results & Data Vital Signs (Past 12 Hours) Vital Signs Temp Pulse Pulse Resp BP BP BP 06/28/24 11:25 36.6 C 69 20 152/93 H 06/28/24 09:02 69 06/28/24 08:24 36.6 C 67 20 157/100 H 06/28/24 06:00 65 20 148/89 H 06/28/24 05:00 61 20 141/89 H 06/28/24 03:19 67 20 147/94 H 06/28/24 03:19 06/28/24 03:14 71 20 147/94 H 06/28/24 02:00 70 18 148/94 H 06/28/24 01:37 70 06/28/24 01:30 72 20 135/84 Pulse Ox Pulse Ox O2 Del Method 06/28/24 11:25 98 Room Air 06/28/24 09:02 06/28/24 08:24 96 Room Air 06/28/24 06:00 96 Room Air 06/28/24 05:00 96 Room Air 06/28/24 03:19 96 Room Air 06/28/24 03:19 97 06/28/24 03:14 97 Room Air 06/28/24 02:00 06/28/24 01:37 06/28/24 01:30 all noted and reviewed including below (1) Chest pain Chest pain type: unspecified Qualified Code(s): R07.9 - Chest pain, unspecified
[2024-06-28] MEDS: HYDROCORTISONE HC 2.5% CRM 30GM TUBE EXT SCH (13:25)
--- NOTE | 2024-06-28 14:23 | Cardiology Consultation ---
<Statement entered by Meli Villar, - 06/28/24 18:13> I have reviewed the advanced practitioner's documentation and agree with the plan of care. I accept the responsibility for the associated risk. Pt seen in cardiology consultation due to chest pain in the setting of hypertensive urgency with recent CABG back on 05/15/2024 and post CABG PE on eliquis Pt was doing ok but then last night had sudden headache and chest discomfort with markedly elevated BP a few hours after eating [employer]. She got nitro and her BP improved but is still elevated Pt's lisinopril was being held post CABG due to being on lasix but she is no longer on lasix for that was during post op period I recommend restarting lisinopril 20mg daily-this might need to be increased vs adding norvasc Continue metoprolol I emphasized to the patient she can not have fast food ever and needs to minimize sodium She should probably eventually start cardiac rehab as this will help with being able to monitor her BP better Would monitor overnight and if feeling better and BP is remaining <130 systolic then she can be discharged home with f/u in our office Date of Consultation June 28, 2024 Assessment & Plan (1) Chest pain: (2) S/P CABG x 3: (3) Pulmonary embolism: Plan -HR well controlled -BP trending on the high side -troponin negative -no acute findings on ECG -chest pain alleviated with SL nitro -continue apixaban, ASA, Toprol, and pravastatin -suspect the CP was related to the accelerated HTN -likely further exacerbated by the high Na meal -encouraged to follow low Na diet, no more fast foods -will start her back on lisinopril for HTN management, will start with 20 mg daily Case discussed with Dr. Villar, please see her attestation for additional recommendations MELLISSA Alvarez Cardiology History of Present Illness Reason for Consultation: Chest Pain Requesting Physician: Hospitalist Attending Physician: Emanuel Singletary MD History of Present Illness 74 year old female seen in consultations today in regard to chest pain. She has a known past medical history of CABG x 3 04/2024, PE (06/06/24), symptomatic PVCs, post op pAF, HLD, CKD, pulmonary HTN. Presented to the ER overnight with chest pain 01/28 reporting this as constant starting around 1200. Prior to coming in with chest pain was feeling well. Was out to lunch at [employer] before going to the grocery store. BP has been running high at home and was int he 190's at home when she had the chest pain. Was taking lisinoprol prior to recent CABG which was stopped. Recently taken off lasix (which was for 1 month post op) completed this course of medications about 1 week ago. Denies dizziness, edema, SOB, palpitations. Did notice chills associated with the chest discomfort. Was given nitroglycerine which alleviated the pain. Allergies Allergy/AdvReac Type Severity Reaction Status Date / Time Sulfa (Sulfonamide Allergy Intermediate Hives Verified 06/27/24 21:32 Antibiotics) codeine AdvReac Intermediate "deathly Verified 06/27/24 21:32 sick and I throw up" levofloxacin [From Levaquin] AdvReac Mild Nausea Verified 06/27/24 21:32 Home Medications Medication Instructions Recorded Confirmed Type coenzyme Q10 200 mg capsule (Co 200 mg PO QAM 02/12/19 06/27/24 History Q-10) aspirin 81 mg tablet,delayed 81 mg PO DAILY 08/17/20 06/27/24 History release (Ousmane Low Dose Aspirin) pantoprazole 40 mg tablet,delayed 40 mg PO DAILYBB 08/28/22 06/27/24 History release mirtazapine 15 mg tablet 7.5 mg PO HS 03/04/24 06/27/24 History multivitamin 1 tab PO QAM 03/04/24 06/27/24 History pravastatin 40 mg tablet 40 mg PO HS 03/04/24 06/27/24 History levalbuterol tartrate 45 1 inh inhalation UD PRN Shortness 06/06/24 06/27/24 History mcg/actuation aerosol inhaler Of Breath tramadol 50 mg tablet 25 mg PO Q6H PRN Moderate Pain 06/06/24 06/27/24 History (Scale Score 5-6) metoprolol succinate 25 mg 25 mg PO BID #60 tabs 06/14/24 06/27/24 Rx tablet,extended release 24 hr apixaban 5 mg tablet (Eliquis) 5 mg PO BID 06/27/24 06/27/24 History magnesium oxide 400 mg (241.3 mg 200 mg PO QAM 06/27/24 06/27/24 History magnesium) tablet Patient History Medical History CAD (coronary artery disease), [place] coronary artery Hypertensive emergency Asthma RARELY USES PRN INH HTN (hypertension) History of basal cell carcinoma Diverticular disease Valvular heart disease "LEAKY VALVE" - FOLLOWS W/ DR. DE SANTIAGO Hypertension Hyperlipidemia Surgical History S/P CABG (coronary artery bypass graft) History of cataract surgery LEFT History of basal cell carcinoma (BCC) excision History of hysterectomy History of esophagogastroduodenoscopy (EGD) History of colonoscopy Family History Sister Diabetes Brother Diabetes Other Heart disease Hypertension Social History Smoking Status: Never smoker Second Hand Exposure: No; Do You Dip or Chew Tobacco: No; Hx Alcohol Use: No Hx Substance Use: No Preferred Language: Romanian Communication Ability: Effective Visual Impairment: Limited Hearing Ability: Normal Liner Worker Required: No Beliefs That Will Affect Care: None marital status: Current Living Situation: Spouse Current Living Situation Comment: With , own home, [address] Feels Safe at Home: Yes Safety Concerns: Feels Safe At This Time Assistive Devices: Bedside Commode, Cane and Walker Review of Systems Review of Systems: All systems reviewed & are unremarkable except as noted in HPI & below Physical Exam Constitutional: WD/WN, vitals as above well developed and well nourished Neck: trachea midline, no thyromegaly Respiratory: normal respiratory effort, lungs clear to auscultation Cardiovascular: RRR, no murmur, no edema Heart Sounds: normal S1 and normal S2 Gastrointestinal (Abdomen): normal bowel sounds, soft, nontender, no hepatosplenomegaly Skin: no rashes, warm and dry Psychiatric: A+Ox3, euthymic affect Results & Data Vital Signs (Past 12 Hours) Vital Signs Temp Pulse Pulse Resp BP BP Pulse Ox 06/28/24 11:25 36.6 C 69 20 152/93 H 98 06/28/24 09:02 69 06/28/24 08:24 36.6 C 67 20 157/100 H 96 06/28/24 06:00 65 20 148/89 H 96 06/28/24 05:00 61 20 141/89 H 96 06/28/24 03:19 67 20 147/94 H 96 06/28/24 03:19 06/28/24 03:14 71 20 147/94 H 97 Pulse Ox O2 Del Method 06/28/24 11:25 Room Air 06/28/24 09:02 06/28/24 08:24 Room Air 06/28/24 06:00 Room Air 06/28/24 05:00 Room Air 06/28/24 03:19 Room Air 06/28/24 03:19 97 06/28/24 03:14 Room Air Laboratory Results Laboratory Results WBC 7.19 K/ul (4.8-10.8) 06/28/24 04:34 RBC 3.75 M/uL (4.20-5.40) L 06/28/24 04:34 Hgb 11.0 g/dl (12.0-16.0) L 06/28/24 04:34 Hct 33.7 % (37.0-47.0) L 06/28/24 04:34 MCV 89.9 fL (80.0-100.0) 06/28/24 04:34 MCH 29.3 pg (25.0-34.0) 06/28/24 04:34 MCHC 32.6 g/dL (32.0-36.0) 06/28/24 04:34 RDW Std Deviation 46.4 fL (36.4-46.3) H 06/28/24 04:34 RDW Coeff of [place] 14.2 % (11.5-14.5) 06/28/24 04:34 Plt Count 200 K/uL (130-400) 06/28/24 04:34 MPV 10.3 fL (9.4-12.4) 06/28/24 04:34 Immature Gran % (Auto) 0.3 % 06/28/24 04:34 Neut % (Auto) 60.9 % 06/28/24 04:34 Lymph % (Auto) 26.6 % 06/28/24 04:34 [place] % (Auto) 8.3 % 06/28/24 04:34 Eos % (Auto) 3.3 % 06/28/24 04:34 Baso % (Auto) 0.6 % 06/28/24 04:34 Neut # (Auto) 4.38 K/uL (1.40-6.50) 06/28/24 04:34 Lymph # (Auto) 1.91 K/uL (1.20-3.40) 06/28/24 04:34 [place] # (Auto) 0.60 K/uL (0.11-0.59) H 06/28/24 04:34 Eos # (Auto) 0.24 K/uL (0.00-0.50) 06/28/24 04:34 Baso # (Auto) 0.04 K/uL (0.00-0.20) 06/28/24 04:34 Immature Gran # (Auto) 0.02 K/uL (0.01-0.20) 06/28/24 04:34 PT 10.5 Seconds (9.0-12.0) 06/27/24 21:29 INR 1.0 (0.9-1.1) 06/27/24 21:29 APTT 27 Seconds (21-31) 06/27/24 21:29 PTT Ratio 1.0 06/27/24 21:29 Sodium 141 mmol/L (136-145) 06/28/24 04:34 Potassium 4.0 mmol/L (3.5-5.1) 06/28/24 04:34 Chloride 110 mmol/L (98-107) H 06/28/24 04:34 Carbon Dioxide 23 mmol/L (21-32) 06/28/24 04:34 Anion Gap 8 (3-11) 06/28/24 04:34 BUN 13 mg/dl (6-23) 06/28/24 04:34 Creatinine 0.78 mg/dl (0.6-1.2) 06/28/24 04:34 Est Cr Clr Drug Dosing 69.6 ml/min 06/28/24 04:34 Est GFR ( Amer) 87.4 ml/min 06/28/24 04:34 Est GFR (Non-Af Amer) 75.4 ml/min 06/28/24 04:34 BUN/Creatinine Ratio 16.7 (10-20) 06/28/24 04:34 Glucose 89 mg/dl (70-99(Fasting)) 06/28/24 04:34 Calcium 8.0 mg/dl (8.6-10.3) L 06/28/24 04:34 Magnesium 1.8 mg/dl (1.7-2.4) 06/28/24 04:34 Troponin I High Sens 10.9 pg/ml (0-14) 06/28/24 10:47 Lipase 52 U/L (11-82) 06/27/24 21:29 Impressions Chest X-Ray 06/27/24 21:06 XR chest 1V portable HISTORY: 74 years-old Female Chest pain, nonspecific COMPARISON: 06/11/2024 TECHNIQUE: AP view of the chest FINDINGS: Cardiac silhouette is enlarged. Median sternotomy. Mild chronic interstitial coarsening. There is no pneumothorax, pleural effusion or airspace consolidation. The bones appear intact. IMPRESSION: Cardiomegaly without acute process. ACT 112: Negative or not required by law. The above report was generated using voice recognition software. It may contain grammatical, syntax or spelling errors. Electronically signed by: Ld Coy M.D. 06/28/2024 7:44 AM Medications Administered Current Inpatient Medications Acetaminophen (Acetaminophen 325 Mg Tab) 650 mg PO Q4H PRN PRN Reason: Pain or Fever Stop: 07/28/24 03:06 Apixaban (Apixaban 5 Mg Tablet) 5 mg PO BID [facility] Stop: 07/28/24 08:59 Last Admin: 06/28/24 08:58 Dose: 5 mg Aspirin (Aspirin 81 Mg Ectab) 81 mg PO DAILY [facility] Stop: 07/28/24 08:59 Last Admin: 06/28/24 08:57 Dose: 81 mg Hydrocortisone (Hydrocortisone Hc 2.5% Crm 30gm Tube) 1 appln EXT BID [facility] Stop: 07/28/24 11:44 Last Admin: 06/28/24 13:25 Dose: 1 appln Levalbuterol HCl (Levalbuterol Tartrate 15 Gm Hfa.Aer.Ad) 1 puffs INH Q4H PRN PRN Reason: Shortness Of Breath Stop: 07/28/24 03:06 Magnesium Oxide (Magnesium Oxide 400 Mg Tab) 200 mg PO QAM [facility] Stop: 07/28/24 08:59 Last Admin: 06/28/24 08:58 Dose: 200 mg Metoprolol Succinate (Metoprolol Succ 25mg Ext Rel Tab) 25 mg PO BID [facility] Stop: 07/28/24 08:59 Last Admin: 06/28/24 08:57 Dose: 25 mg Mirtazapine (Mirtazapine Tab 15 Mg Tab) 7.5 mg PO HS [facility] Stop: 07/28/24 20:59 Multivitamins (Multivitamin Tab) 1 tab PO QAM [facility] Stop: 07/28/24 08:59 Last Admin: 06/28/24 08:55 Dose: 1 tab Nitroglycerin (Nitroglycerin Sl 0.4 Mg/Tab Tab) 0.4 mg SL Q5M PRN PRN Reason: Chest Pain Stop: 07/28/24 03:06 Pantoprazole Sodium (Pantoprazole 40 Mg Tab) 40 mg PO DAILYBB [facility] Stop: 07/28/24 06:29 Last Admin: 06/28/24 08:55 Dose: 40 mg Polyethylene Glycol (Polyethylene (Miralax) 17 Gm Pack) 17 gm PO DAILY PRN PRN Reason: Constipation Stop: 07/28/24 03:06 Pravastatin Sodium (Pravastatin Sod 40 Mg Tab) 40 mg PO HS [facility] Stop: 07/28/24 20:59 Tramadol HCl (Tramadol Hcl 50 Mg Tablet) 25 mg PO Q6H PRN PRN Reason: Moderate Pain (Scale Score 5-6) Stop: 07/28/24 03:06 (1) Chest pain Chest pain type: unspecified Qualified Code(s): R07.9 - Chest pain, unspecified (3) Pulmonary embolism Acute cor pulmonale presence: unspecified Chronicity: acute Pulmonary embolism type: unspecified Qualified Code(s): I26.99 - Other pulmonary embolism without acute cor pulmonale
[2024-06-28] MEDS: POLYETHYLENE (MIRALAX) 17 GM PACK PO PRN (15:17)
[2024-06-28] MEDS: lisinopril 20 MG TAB PO SCH (19:01)
[2024-06-28] MEDS: MIRTAZAPINE TAB 15 MG TAB PO SCH (20:40)
[2024-06-28] MEDS: PRAVASTATIN SOD 40 MG TAB PO SCH (21:37)
--- NOTE | 2024-06-28 22:30 | Electrocardiogram Report ---
Test Reason : Blood Pressure : */* mmHG Vent. Rate : 79 BPM Atrial Rate : 79 BPM P-R Int : 190 ms QRS Dur : 104 ms QT Int : 348 ms P-R-T Axes : -1 -41 25 degrees QTcB Int : 399 ms Normal sinus rhythm Left axis deviation Minimal voltage criteria for LVH, may be normal variant Poor R wave progression, consider anterior RI vs. lead placement vs. LVH Possible Inferior infarct Nonspecific T wave abnormality Abnormal ECG When compared with ECG of 13-Jun-2024 08:46, Premature ventricular complexes are no longer Present Confirmed by Andi Siddiqui ([id number]) on 06/28/2024 10:30:00 PM Referred By: REFERRED SELF Confirmed By: Andi Siddiqui
[2024-06-29 07:39] VITALS: RESP 16; TEMP 98.2; O2SAT 96
--- NOTE | 2024-06-29 08:49 | Cardiology Progress Note ---
Date of Service June 29, 2024 Assessment & Plan (1) Chest pain: (2) S/P CABG x 3: (3) Pulmonary embolism: Plan PLAN 06/29/2024: -Patient admitted with chest pain associated with Hypertensive urgency after consuming a salty meal at [facility] -Troponin negative -EKG with no acute changes. No ectopy or arrhythmia on telemetry. -BP now within target. -Continue GDMT with Toprol xl, ASA, Pravastatin. Continue with Lisinopril 20mg Daily -Continue Eliquis due to recent history of post operative A-fib and pulmonary emboli. -Reinforced dietary compliance stressing the importance of maintaining a low sodium diet less than 2000mg Na daily. encourage water intake. Importance of reading nutrition labels, avoid fast foods/high salt take out options. -Patient will need to be enrolled in cardiac rehab once cleared by CT surgery. She would like to attend a program at [facility] if available. Will send notice to the outpatient office to arrange. -Patient is stable from a cardiac perspective and is ok for discharge to home when ok with primary team. Case has been discussed with Dr. Oshea. Further recommendations regarding plan of care as per his assessment. I spent a total of 30 minutes on the date of service in preparation, delivery, documentation of the care provided to the patient excluding any time spent in the performance of separately billed services. MELLISSA Carcamo [facility] Cardiology [facility] Admission and Anticipated Discharge Date Admission Date: June 27, 2024 Supervising Physician Co-Signing Physician Notes Patient was seen and personally examined. Full assessment and plan as per advanced provider above. Care and management discussed and personally endorsed Patient feeling well this morning. No dyspnea. Tolerating initial medication changes Surgical incisions healing well Plan as outlined. Stable for discharge Subjective 06/29/2024: Patient seen and examined in follow up today. Feeling well overall. Denies any chest pain, pressure or palpitations. No changes in breathing, no near syncope, syncope or concerns of edema. Labs, vitals, diagnostics, telemetry and documentation reviewed. Telemetry reviewed showing SR with no acute events overnight. Review of Systems Review of Systems: All systems reviewed & are unremarkable except as noted in HPI & below Physical Exam Constitutional: well developed and well nourished; no acute distress and not ill appearing Neck: normal visual inspection and trachea midline Respiratory: normal respiratory effort, lungs clear to auscultation no cough Auscultation: lungs clear to auscultation bilaterally and + breath sounds absent Cardiovascular: RRR, no murmur, no edema Rate/Rhythm: regular rate and regular rhythm Vessels: dorsalis pedis pulses present; no JVD Extremities: no edema Skin: no rashes, warm and dry CT surgery incision is clean/dry/intact, well approximated, no erythema Psychiatric: A+Ox3, euthymic affect Results & Data Vital Signs (Past 12 Hours) Vital Signs Temp Pulse Pulse Resp BP Pulse Ox O2 Del Method 06/29/24 07:48 61 06/29/24 07:38 36.8 C 67 16 127/84 96 Room Air 06/29/24 04:00 36.6 C 65 18 122/74 95 Room Air 06/28/24 22:14 36.6 C 76 16 123/78 94 Room Air 06/28/24 22:03 75 Laboratory Results Cardiac Enzymes 06/28/24 06/28/24 06/28/24 Range/Units 10:47 16:29 22:31 Troponin I High Sens 10.9 10.6 10.1 (0-14) pg/ml Intake and Output 06/28/24 06/29/24 06/29/24 22:59 06:59 14:59 Intake Total 240 / 480 240 / 480 Balance 240 / 480 240 / 480 Intake: Oral 240 / 480 240 / 480 Other: Weight 84.2 kg Weight Measurement Method Built in [facility] (1) Chest pain Chest pain type: unspecified Qualified Code(s): R07.9 - Chest pain, unspecified (3) Pulmonary embolism Acute cor pulmonale presence: unspecified Chronicity: acute Pulmonary embolism type: unspecified Qualified Code(s): I26.99 - Other pulmonary embolism without acute cor pulmonale
[2024-06-29 10:52] VITALS: BP 157/100; PULSE 67
--- OUTSIDE RECORDS SUMMARY | 2024-06-29 11:13 | External Medical Summary | Summary of Care ---
Author Name Unknown Organization [facility] Address [address] [place] [address] Phone [phone] Care Team Providers Care Therapist Phys Name Role Phone Jasmina Taylor MD Primary Care Provide r Reason for Visit * Reason Onset Date Comments [facility]: Maintenance 06/28/2024 Encounter Details Date Type Department Care Team (Late st Contact Info) Description 06/28/2024 10:15 AM EDT Scheduled Telephone [facility], [facility] [address] [place] [address] [facility] [address] [place] [address] Allergies Active Allergy Reactions Criticality Noted Date Comments Baclofen 04/26/2022 Vertigo/extreme dizziness Codeine 02/18/2013 "deathly sick" Levofloxacin Nausea/vomiting 08/12/2018 Sulfa Antibiotics 08/25/2001 Rash documented as of this encounter (statuses as of 06/28/2024) Medications Medication Sig Dispensed Refills Start Date [...] mouth at bedtime. 90 Tablet 03/13/2024 Active traMADol HCl 50 MG Oral Tablet [...] as of this encounter (statuses as of 06/28/2024) Active Problems Problem Noted Date Diagnosed Date Chronic kidney disease, stage 3a 06/25/2024 Pulmonary hypertension 05/25/2024 S/P CABG x 3 [...] as of this encounter (statuses as of 06/28/2024) Resolved Problems Problem Noted Date Diagnosed Date [...] as of this encounter (statuses as of 06/28/2024) Immunizations Name Administration Dates Next Due COVID-19 mRNA, LNP-s, No Pre serve, 2-Dose Series (Spot Runner) 08/22/2021,12/14/2020,11/23/2020 COVID-19, LNP-s, No Preserve , Clive-sucrose, Ages 12+ (Pfizer) 02/13/2022 COVID-19, MRNA-LNP, 23-24, P F, 30 MCG/0.3 mL, 12 YRS AND ABOVE, IM (NexMed-Comirnaty) 08/23/2023 Covid-19, Mrna, Lnp-s, Pf, B ivalent, [...] the money to buy more. Never true 06/17/20 24 Within the past 12 months, t he food you bought just didn't last and you didn't have money to get more. Never true 06/17/2024 Childcare Answer Date Recorded Do you feel overwhelmed with taking care of a child, family member or friend? No 06/17/2024 Does your family need help f inding childcare? (Household - for ages 0-17 years) Not on file 06/17/2024 Clothing Answer Date Recorded Have you been unable to get clothing when it was really needed? No 06/17/2024 Is your family able to get c lothes or diapers when needed? (Household - for ages 0-17 years) Not on file 06/17/2024 Personal Safety Answer Date Recorded Do you feel unsafe or have concerns for your saf ety? No 06/17/2024 Do you have concerns for you r family's safety? (Household - for ages 0-17 years) Not on file 06/17/2024 Utilities Answer Date Recorded Do you have trouble paying y our heating, water, or electric bill? No 06/17/2024 Is your family able to pay t he heat, water, or electric bill? (Household - for ages 0-17 years) Not on file 06/17/2024 Does your family have access to good internet? (Household - for ages 0-17 years) Not on file 06/17/2024 Employment Status Answer Date Recorded Are you unemployed or without regular income? No 06/17/2024 Does the household have a re gular source of income? (Household - for ages 0-17 years) Not on file 06/17/2024 Social Connections Answer Date Recorded How often do you feel lonely or isolated from th ose around you? Never 06/17/2024 Financial Resource Strain Answer Date R ecorded Do you have any trouble payi ng for your medications, or do you think you might in the future? No 06/17/2024 Does your family have troubl e paying for medicine? (Household - for ages 0-17 years) Not on file 06/17/2024 Transportation Needs Answer Date Record ed Do you have trouble getting a ride to medical visits or work? (Adult - for ages 18 years and over) Not on file 06/17/2024 Does your family have a hard time getting a ride to doctors visits? (Household - for ages 0-17 years) Not on file 06/17/2024 Has lack of transportation k ept you from medical appointments, meetings, work, or from getting things needed for daily living? Check all that apply. No 06/17/2024 Do you (or your family) have trouble finding or paying for a ride (transportation)? (Household - for ages 0-17 years) Not on file 06/17/2024 Housing Stability Answer Date Recorded Do you currently live in a s helter or have no steady place to sleep at night? No 06/17/2024 Do you think you are at risk of becoming homeless? (Adult - for ages 18 years and over) Not on file 06/17/2024 Does your family worry about paying for your home or becoming homeless? (Household - for ages 0-17 years) Not on file 0 06/17/2024 Are you homeless or worried that you might be in the future? No 06/17/2024 Are you (or your family) kortney eless or worried that you might be in the future? (Household - for ages 0-17 years) Not on file Food Insecurity Answer Date Recorded Do you need food for this week? No 06/17/2024 Are you able to get enough f ood for your family? (Household - for ages 0-17 years) Not on file 06/17/2024 Does your family need food t his week? (Household - for ages 0-17 years) Not on file 06/17/2024 Do you always have enough fo od for your family? (Household - for ages 0-17 years) Not on file 06/17/2024 Sex and Gender Information Value Date Recorded [...] encounter Miscellaneous Notes * Telephone Encounter - Louisa Rock RN - 06/28/2024 10:02 AM EDT Called [facility] and confirmed that patient has been admitted. documented in this encounter Plan of Treatment Upcoming Encounters Date Type Department Care Team (Late st Contact Info) Description 08/05/2024 10:00 AM EDT [facility] [address] [place] [address] Sarah Manuel, TAWANNA [address] [place] [address] 08/19/2024 3:00 PM EDT Office Visit Cardiology, [facility] [address] [place] [address] German Laboy DO [address] [place] [address] 08/25/2024 1:40 PM EST Office Visit Family Medicine [address] [place] [phone] Jasmina Taylor MD [address] [place] [address] [place] [address] 10/05/2024 2:00 PM EST Office Visit Gastroenterology, [facility] [address] [facility] [place] [address] Martha Porter [facility] [address] [facility] [place] [address] 01/20/2025 3:20 PM EDT Office Visit Dermatology [address] [place] [address] Carolynn Dailey PA-C [address] [place] [address] [place] [address] 06/18/2025 10:00 AM EDT Nurse Only Ancillary [address] [place] [address] [place], Nurse [facility] [address] [place] [address] [place] [id number] Scheduled Procedures Name Priority Associated Diagnoses Date/Ti me COLONOSCOPY FLEXIBLE PROXIMA L DIAGNOSTIC Recall Encounter for screening colonoscopy Health Maintenance Due Date Last Done Comments Sigmoidoscopy 1996 DTap/Tdap Vaccines (2 - Td or Tdap) 07/14/2018 07/14/2008 Fecal Occult Blood Test 09/16/2020 09/16/2019, 12/05 Cologuard 01/27/2021 01/27/2018 Albumin/Creatinine Ratio 12/11/2022 12/11/2021, 12/12/2018 Influenza Vaccine (FLU shot) (#1) 2024 07/06/2023, 07/07/2022, 06/29/2021, Additional history exists Mammogram 11/13/2024 11/13/2023, 10/21, 11/06/2022, Additional history exists GFR 12/18/2024 06/17/2024, 05/21, 06/07/2024, Additional history exists DXA Scan 02/27/2025 02/27/2022, 02/18, 01/21/2019, Additional history exists CKD PHOS USE SMARTSET 89698 06/08/202505/21, 03/14/2021, 09/22/2019 Adult Wellness Visit 06/17/2025 06/17/2024, 06/12/2023, 05/11/2022, Additional history exists CKD HGB USE SMARTSET 23661 06/17/202506/17, 06/07/2024, 05/20/2024, Additional history exists Depression Screening 06/17/2025 06/17/2024 [...] this encounter Medical Devices Implanted Type Area Storyboard Artist Device Identifier Shelf Expiration Date Model / Serial / Lot Suture Steel 6 B&S19 M654g - [id number] Implanted:Qty: 7 on 05/15/2024 by Alfonso Jay MD at OR [facility] N/A: Sternum JNJ : [employer] 08/20/2028 M654G / / TMMAST Marker Coronary - [id number] Implanted:Qty: 1 on 05/15/2024 by Alfonso Jay MD at OR [facility] N/A: Aorta [employer] 04/19/2027 [facility] / / [id number] Description:attached to vein graft Marker Coronary - [id number] Implanted:Qty: 1 on 05/15/2024 by Alfonso Jay MD at OR [facility] N/A: Aorta [employer] 03/20/2027 [facility] / / [id number] Description:attached to vein graft documented as of [...] and were consensually agreed upon. Care Teams Therapist Phys Relationship Specialty Start Date End Date Jasmina Taylor MD [address] [place] [address] [place] [id number] PCP - General Family Medicine 05/07/24 documented as of this encounter
--- NOTE | 2024-06-29 13:03 | Electrocardiogram Report ---
Test Reason : Blood Pressure : */* mmHG Vent. Rate : 61 BPM Atrial Rate : 61 BPM P-R Int : 192 ms QRS Dur : 106 ms QT Int : 450 ms P-R-T Axes : 8 -40 -63 degrees QTcB Int : 453 ms Normal sinus rhythm Left axis deviation Poor R wave progression, consider anterior [place] vs. lead placement vs. LVH Abnormal ECG When compared with ECG of 27-Jun-2024 21:02, T wave inversion more evident in Inferior leads T wave inversion more evident in Anterolateral leads QT has lengthened Confirmed by Morteza Velazquez ([id number]) on 06/29/2024 1:03:36 PM Referred By: REFERRED SELF Confirmed By: Morteza Velazquez
--- NOTE | 2024-06-29 19:09 | Discharge Summary ---
Discharge Summary Date of Service June 29, 2024 Principal Dx & Hospital Course #1 = Principal Diagnosis (1) Chest pain: per admitting service notes with addendum: 74-year-old female with past medical history significant for hyperlipidemia, multinodular thyroid, mild intermittent asthma, seasonal allergic rhinitis, hiatal hernia, hypertension, frequent PVCs, multiple vessel coronary artery disease status post CABG recently, GERD, pulmonary hypertension, CKD stage III, general osteoarthritis of multiple sites, history of C. difficile infection, primary insomnia comes with chest pressure. Patient had CABG x 3 at [place] at the end of April 2024. Postop course was complicated with episode of A-fib which was resolved. She was placed on amiodarone and Lasix for 1 month. She came to the ER on June 06 for chest pain and diagnosed acute pulmonary embolism and was placed on Eliquis. Patient was again admitted June 11 for lightheadedness and chills thought to be from symptomatic PVCs atenolol was changed to metoprolol succinate 25 mg twice daily and was discharged. Comes today again with chest pressure left-sided chest started around noon time. The chest pressure was about 4/10 in severity. It was constant. Associated with some ch ills. Denies any headache. No dizziness. No nausea. No sweating. Denies any shortness of breath. After nitro the pain subsided. Denies any fevers. No cough. Vision is okay. No runny nose or sore throat. Appetite is okay. No abdominal pain. Normal bladder movements. States she had episode of diarrhea and hemorrhoidal bleed yesterday which is resolved currently. Ambulating okay as per patient. Currently resting comfortably and hemodynamically stable. Chest pressure ACS ruled out likely from Uncontrolled HTN Resolved after nitro Initial workup unremarkable Recent CABG trop negative x 2 EKG no acute ischemia echo: EF 60 to 65%, left ventricular motion is normal Cardiology consulted: recommend to start Lisinopril 20mg po daily BP improved, no recurrence of chest pain ff up with PCP, Cardiology CAD status post CABG On aspirin, metoprolol succinate and pravastatin History of recent PE Postop On Eliquis Hypertension On metoprolol succinate management per #1 History of atrial fibrillation Post op , got resolved Currently on metoprolol succinate Also on Eliquis. Hyperlipoidemia on statin History of PVCs On metoprolol succinate History of mild intermittent asthma Continue home inhalers Hiatal hernia GERD On Protonix DVT prophylaxis On Eliquis Disposition d/c home ff up with PCP in 1 week ff up with [employer] in 2-3 weeks Notes For Next Care Provider Medication Changes From Visit New Medication: Lisinopril 20mg po Admission HPI Per Admitting Provider 74-year-old female with past medical history significant for hyperlipidemia, multinodular thyroid, mild intermittent asthma, seasonal allergic rhinitis, hiatal hernia, hypertension, frequent PVCs, multiple vessel coronary artery disease status post CABG recently, GERD, pulmonary hypertension, CKD stage III, general osteoarthritis of multiple sites, history of C. difficile infection, primary insomnia comes with chest pressure. Patient had CABG x 3 at [place] at the end of April 2024. Postop course was complicated with episode of A-fib which was resolved. She was placed on amiodarone and Lasix for 1 month. She came to the ER on June 06 for chest pain and diagnosed acute pulmonary embolism and was placed on Eliquis. Patient was again admitted June 11 for lightheadedness and chills thought to be from symptomatic PVCs atenolol was changed to metoprolol succinate 25 mg twice daily and was discharged. Comes today again with chest pressure left-sided chest started around noon time. The chest pressure was about 4/10 in severity. It was constant. Associated with some chills. Denies any headache. No dizziness. No nausea. No sweating. Denies any shortness of breath. After nitro the pain subsided. Denies any fevers. No cough. Vision is okay. No runny nose or sore throat. Appetite is okay. No abdominal pain. Normal bladder movements. States she had episode of diarrhea and hemorrhoidal bleed yesterday which is resolved currently. Ambulating okay as per patient. Currently resting comfortably and hemodynamically stable. Past medical history. As mentioned above Past surgical history. CABG. Colonoscopy. EGD. Lithotripsy. Bladder tacking. Partial hysterectomy. Social history. . No smoking. No alcohol use. No drug use. Family history. Father had thyroid cancer. of brain aneurysm. Mother had diabetes. Ulcerative colitis. [place]. Hypertension. Hypothyroidism. Brother has diabetes. Hypothyroidism. Sister has diabetes. CHF. Hypothyroidism. Admission Exam Per Admitting Provider General- Not in distress Head- atraumatic Eyes- PERRL. ENT- oropharynx clear Neck- supple, no JVD. Lungs- clear to auscultation no wheezing or crackles Heart- regular rate and rhythm; no murmur, no gallop. Abdomen- normal bowel sounds, soft, nontender, no distension Extremities- no pretibial edema, no erythema seen Neuro- alert, oriented x 3; PERRL, no facial palsy; no dysarthria; moves extremities Discharge Exam General- oriented x 3, not in distress, speaks in sentences with no effort or accessory muscle use Eyes- anicteric Neck- no JVD Lungs- clear breath sounds bilaterally, no rales/wheezes Heart- normal rate, regular rhythm; no murmurs Abdomen- normal bowel sounds, nondistended, soft, nontender Extremities- no pretibial edema, no calf tenderness Neuro- alert, oriented x 3; no gross focal neurologic deficits Skin- warm & dry Updated Medication List Medication Instructions Recorded Confirmed Type coenzyme Q10 200 mg capsule (Co 200 mg PO QAM 02/12/19 06/27/24 History Q-10) aspirin 81 mg tablet,delayed 81 mg PO DAILY 08/17/20 06/27/24 History release (Ousmane Low Dose Aspirin) pantoprazole 40 mg tablet,delayed 40 mg PO DAILYBB 08/28/22 06/27/24 History release mirtazapine 15 mg tablet 7.5 mg PO HS 03/04/24 06/27/24 History multivitamin 1 tab PO QAM 03/04/24 06/27/24 History pravastatin 40 mg tablet 40 mg PO HS 03/04/24 06/27/24 History levalbuterol tartrate 45 1 inh inhalation UD PRN Shortness 06/06/24 06/27/24 History mcg/actuation aerosol inhaler Of Breath tramadol 50 mg tablet 25 mg PO Q6H PRN Moderate Pain 06/06/24 06/27/24 History (Scale Score 5-6) metoprolol succinate 25 mg 25 mg PO BID #60 tabs 06/14/24 06/27/24 Rx tablet,extended release 24 hr apixaban 5 mg tablet (Eliquis) 5 mg PO BID 06/27/24 06/27/24 History magnesium oxide 400 mg (241.3 mg 200 mg PO QAM 06/27/24 06/27/24 History magnesium) tablet lisinopril 20 mg tablet 20 mg PO QAM #30 tabs 06/29/24 Rx Hospital Stay Data Consultations 06/27/24 22:22 ED Decision to Admit Stat 06/28/24 08:00 Consult Cardiology Routine Discharge Instructions Given to Patient (Per Discharging Provider) PLEASE REFER TO YOUR NEW MEDICATION LIST AND FOLLOW INSTRUCTIONS CAREFULLY. YOUR NEW MEDICATIONS INCLUDE: Lisinopril-for blood pressure control PLEASE CALL YOUR PRIMARY CARE PHYSICIAN OR RETURN TO THE ER IF WITH WORSENING OF SYMPTOMS, INCLUDING Chest pain, shortness of breath, palpitations, dizziness, etc. FOLLOW UP WITH PRIMARY CARE PHYSICIAN OUTLINED ABOVE. Follow-up with cardiology clinic as scheduled. Total Time Total Time Spent Total Time Spent (In Minutes): 35 minutes
== END 2024-06-29 11:15 | disposition home or self-care (01) | DRG 313 ==
LOC: ED 20:55 → EDINP 20:55 → 2N 06-28 03:07

== ENCOUNTER 2024-07-07 11:31 | Inpatient (IN) ==
--- NOTE | 2024-07-07 12:55 | Emergency Department Note ---
Impression & Plan Chest pain, Hypertension, S/P CABG x 3 ED Provider Note CHIEF COMPLAINT: Hypertension, chest heaviness HISTORY OF PRESENTING ILLNESS: This 74-year-old female patient presents to the emergency department with her for evaluation of elevated blood pressure and heaviness in her chest. Blood pressure symptoms started a couple days ago. She woke up sweating in the middle of the night last night. She also feels very weak. She denies runny nose, nasal congestion, cough, or fever. She has a history of hypertension and has been taking her medication as prescribed, but her blood pressures have been higher than normal. She denies any headache, dizziness, lightheadedness, change in her vision, or change in personality. She denies any shortness of breath. She had triple bypass surgery at [facility] on May 16, 2024. She has had intermittent chest heaviness since that time. She states that her eyeglass assembler said that the pain may be from "nerve endings regenerating" per patient. Her lisinopril was recently increased to 40 mg QD. She is also on Metoprolol [address] Daugherty discussed adding HCTZ per patient, but she did not want to start that yet. She is on Eliquis for history of and May 2024. Her BPs at home have ranged from 140's-184 systolic and 93-113 diastolic over the past 4 days. REVIEW OF SYSTEMS: See HPI for pertinent positives and pertinent negatives. ALLERGIES: Sulfa, Codeine, Levaquin MEDICATIONS: See below PAST MEDICAL HISTORY: See below PHYSICAL EXAM: VITALS: Vitals are noted on the nurse's note and reviewed by myself. GENERAL: No acute distress, non-diaphoretic. SKIN: Capillary reflex less than 2 seconds. HEAD: No scalp tenderness. No step-offs felt. EYES: Pupils equal round and reactive to light and accommodation. Conjunctivae without injection, sclerae without icterus. Extraocular movements intact without pain. No nystagmus. NOSE: Patent, turbinates without inflammation or discharge. No sinus tenderness. No septal hematoma or bleeding. FACE: No facial bone tenderness. Full range of motion of the jaw without tenderness. No facial droop. MOUTH: Mucous membranes moist. Uvula midline. Airway patent. Tongue does not deviate. NECK: Supple without nuchal rigidity. Cervical spine is nontender. Full range of motion of the neck without tenderness and normal strength. HEART: Regular rate and rhythm without murmurs gallops or rubs. LUNGS: Clear to auscultation bilaterally without wheezes, rales or rhonchi. No retractions or accessory muscle use. No chest wall tenderness. ABDOMEN: Positive bowel sounds x 4. Normal tympanic percussion. Soft, nontender, without masses or organomegaly. No guarding or rebound tenderness. MUSCULOSKELETAL: No gross musculoskeletal abnormalities. No significant edema bilaterally and no pitting. No erythema, warmth, or cording felt. Negative Homans' sign. Peripheral pulses 2+ in the bilateral upper and lower extremities. NEURO: Patient was alert and oriented to person place and time. Normal mental status exam. Normal sensation to light and sharp touch. No focal neurological deficits. DIFFERENTIAL DIAGNOSIS: Differential diagnosis includes angina, WI, pericarditis, myocarditis, aortic dissection, pleurisy, pneumothorax, PE, pneumonia, pneumomediastinum, esophagitis, esophageal spasm, GERD, perforated esophagus, perforated duodenal/gastric ulcer, pancreatitis, cholecystitis, costochondritis, musculoskeletal, bronchitis, URI, or others. ED COURSE AND MEDICAL DECISION MAKING: HISTORY FROM INDEPENDENT HISTORIAN: Additional history obtained from the patient's MEDICATIONS GIVEN: 250 mL normal saline solution bolus. Tylenol 1000 mg IV. Nitroglycerin 0.4 mg sublingual. MONITOR: Continuous panel monitor: Order was placed for continuous panel monitor. Patient was placed on the panel monitor and continuous pulse ox. Patient was noted to be in normal sinus rhythm at an initial rate of 70 bpm per my interpretation. EKG: EKG was interpreted by myself as normal sinus rhythm at 73 bpm with no acute ST or T wave changes and resolution of the T wave inversion in the anterior leads from her previous EKG. INTERPRETATION OF LABS: I interpreted the labs with full lab results as below in the lab section of this note. Pertinent lab results discussed in the MDM section below. INTERPRETATION OF IMAGING: Imaging studies were interpreted by myself and read by radiology as per the imaging section of this note. Chest x-ray showed cardiomegaly, but no acute cardiopulmonary etiology. CTA of the chest with IV contrast showed near-complete resolution of the scattered segmental/subsegmental pulmonary emboli with a few small linear nonocclusive chronic emboli remaining. No new filling defects within the pulmonary arteries to suggest an acute pulmonary embolus. Mosaic attenuation within the lungs consistent with air trapping. Bibasilar linear densities favor subsegmental atelectasis. Cardiomegaly and a trace pericardial effusion, unchanged. Poststernotomy changes are again noted with progressive lucency at the sternal incision and no significant bony bridging identified. A small amount of retrosternal fluid has improved and suggests a resolving postoperative seroma. EXTERNAL RECORDS REVIEWED: I reviewed the patient's previous CT scan of her chest from 06/06/2024 in comparison to her most recent CT scan. CONSULTATIONS: Dr. Daugherty of cardiology. On-call hospitalist. MDM SUMMARY: The patient was seen during a time of extreme volume and extreme acuity. Nursing triage protocols were initiated with IV lock, labs, and/or imaging studies conducted by protocol in the triage area. The patient was initially evaluated in a triage room and then re-evaluated once they were taken back to an exam room. The patient had triple bypass surgery in April at [facility]. She has had intermittent chest heaviness since that time. However, over the past couple of days she has noticed that her blood pressure has been more elevated than usual at home and she is concerned about the high blood pressure and the chest heaviness/pressure. Since the patient was in the waiting room she was initially given 250 mL normal saline solution bolus and Tylenol 1000 mg IV. Once the patient was taken back to the room and able to be placed on the monitor, she was given nitroglycerin 0.4 mg sublingual since she states that this has helped her in the past. The sublingual nitroglycerin did resolve her chest pain and improve her blood pressure. CBC without leukocytosis, anemia, or thrombocytopenia. Coags were normal. D- dimer was elevated 840. Glucose 118, but CMP otherwise normal. Magnesium normal. High-sensitivity troponin x 2 were normal. TSH normal. Urinalysis with trace blood and 3-5 red blood cells, but otherwise normal. COVID, flu, and RSV were negative. EKG without evidence of ischemic changes. Chest x-ray showed cardiomegaly, but no acute cardiopulmonary etiology. CTA of the chest with IV contrast showed near-complete resolution of the scattered segmental/subsegmental pulmonary emboli with a few small linear nonocclusive chronic emboli remaining. No new filling defects within the pulmonary arteries to suggest an acute pulmonary embolus. Mosaic attenuation within the lungs consistent with air trapping. Bibasilar linear densities favor subsegmental atelectasis. Cardiomegaly and a trace pericardial effusion, unchanged. Poststernotomy changes are again noted with progressive lucency at the sternal incision and no significant bony bridging identified. A small amount of retrosternal fluid has improved and suggests a resolving postoperative seroma. I had a meaningful discussion about this patient with Dr. Coello who agrees with my assessment and the treatment plan. I spoke with Dr. Daugherty of cardiology who recommended the patient be admitted for further cardiac evaluation due to her persisting symptoms, complex history, and workup findings. I spoke with the on-call hospitalist who agreed to admit the patient for further management. Please refer to their dictation for further details. The patient's care was transferred in stable condition. DIAGNOSIS: Chest pain Hypertension History of CABG Past Med/Surg History Problem List (Updated 07/07/24 @ 22:26 by Ela Khan PA-C) Hypertension (Acute) PVCs (premature ventricular contractions) Palpitations Chest pain (Acute) Chills without fever S/P CABG x 3 (Acute) Pulmonary embolism (Acute) Abnormal nuclear stress test Family history of coronary artery disease (Acute) Chest pain (Acute) Chest pain Acute lower GI bleeding Rectal bleed (Acute) Bronchitis (Acute) Rectal bleeding Gastroenteritis (Acute) History of diverticulitis (Chronic) Encounter for pre-operative examination Diarrhea (Acute) Nausea and vomiting (Acute) Anterior T wave inversion (Acute) Acute electrocardiogram changes (Acute) Abdominal pain, epigastric (Acute) Discharge planning issues Encounter for pre-operative examination GERD (gastroesophageal reflux disease) (Chronic) Osteoarthritis (Chronic) Medical History CAD (coronary artery disease), [place] coronary artery Hypertensive emergency Asthma RARELY USES PRN INH HTN (hypertension) History of basal cell carcinoma Diverticular disease Valvular heart disease "LEAKY VALVE" - FOLLOWS W/ DR. DE SANTIAGO Hypertension Hyperlipidemia Surgical History S/P CABG (coronary artery bypass graft) History of cataract surgery LEFT History of basal cell carcinoma (BCC) excision History of hysterectomy History of esophagogastroduodenoscopy (EGD) History of colonoscopy Family History Sister Diabetes Brother Diabetes Other Heart disease Hypertension Social History Smoking Status: Never smoker Second Hand Exposure: No; Do You Dip or Chew Tobacco: No; Hx Alcohol Use: No Hx Substance Use: No Preferred Language: Turkmen Communication Ability: Effective Visual Impairment: Limited Hearing Ability: Normal Pediatric Immunologist Required: No Beliefs That Will Affect Care: None marital status: Current Living Situation: Spouse Current Living Situation Comment: With , own home, [address] Feels Safe at Home: Yes Assistive Devices: Cane and Glasses Allergies Allergies Allergy/AdvReac Type Severity Reaction Status Date / Time Sulfa (Sulfonamide Allergy Intermediate Hives Verified 06/27/24 21:32 Antibiotics) codeine AdvReac Intermediate "deathly Verified 06/27/24 21:32 sick and I throw up" levofloxacin [From Levaquin] AdvReac Mild Nausea Verified 06/27/24 21:32 Home Meds Home Medications Medication Instructions Recorded Confirmed coenzyme Q10 200 mg capsule (Co 200 mg PO QAM 02/12/19 07/07/24 Q-10) aspirin 81 mg tablet,delayed 81 mg PO DAILY 08/17/20 07/07/24 release (Ousmane Low Dose Aspirin) pantoprazole 40 mg tablet,delayed 40 mg PO DAILYBB 08/28/22 07/07/24 release mirtazapine 15 mg tablet 7.5 mg PO HS 03/04/24 07/07/24 multivitamin 1 tab PO QAM 03/04/24 07/07/24 pravastatin 40 mg tablet 40 mg PO HS 03/04/24 07/07/24 levalbuterol tartrate 45 1 inh inhalation UD PRN Shortness 06/06/24 07/07/24 mcg/actuation aerosol inhaler Of Breath tramadol 50 mg tablet 25 mg PO Q6H PRN Moderate Pain 06/06/24 07/07/24 (Scale Score 5-6) apixaban 5 mg tablet (Eliquis) 5 mg PO BID 06/27/24 07/07/24 magnesium oxide 400 mg (241.3 mg 200 mg PO QAM 06/27/24 07/07/24 magnesium) tablet lisinopril 20 mg tablet 40 mg PO QAM 07/07/24 07/07/24 Previous Rx's Medication Instructions Recorded metoprolol succinate 25 mg 25 mg PO BID #60 tabs 06/14/24 tablet,extended release 24 hr Results & Data (ED) Vital Signs Vital Signs - 24 hr 07/07/24 11:43 07/07/24 15:20 07/07/24 16:11 Temperature 36.5 C Temperature Source Temporal Artery Scan Pulse Rate 75 69 Pulse Rate [Left Finger] 71 Respiratory Rate 20 19 Respiratory Effort / Characteristics Non-Labored Respiratory Depth Normal Blood Pressure 164/107 H Blood Pressure [Left Arm] 161/100 H Blood Pressure Mean 126 Blood Pressure Mean [Left Arm] 120 Pulse Oximetry 99 99 Oxygen Delivery Method Room Air Room Air Sepsis Recent Fever Within 48 Hours No Sepsis New/Unexplained Change in Mental Status No Sepsis Action Taken by Nursing No Action Required 07/07/24 17:38 07/07/24 18:34 07/07/24 19:12 Temperature Temperature Source Pulse Rate Pulse Rate [Left Finger] 64 63 65 Respiratory Rate 19 19 19 Respiratory Effort / Characteristics Respiratory Depth Blood Pressure Blood Pressure [Left Arm] 137/90 130/96 161/109 H Blood Pressure Mean Blood Pressure Mean [Left Arm] 105 107 126 Pulse Oximetry 98 99 97 Oxygen Delivery Method Room Air Room Air Room Air Sepsis Recent Fever Within 48 Hours Sepsis New/Unexplained Change in Mental Status Sepsis Action Taken by Nursing 07/07/24 19:25 07/07/24 20:21 07/07/24 21:04 Temperature Temperature Source Pulse Rate 72 Pulse Rate [Left Finger] 69 71 Respiratory Rate 19 18 Respiratory Effort / Characteristics Respiratory Depth Blood Pressure Blood Pressure [Left Arm] 153/95 H 155/97 H Blood Pressure Mean Blood Pressure Mean [Left Arm] 114 116 Pulse Oximetry 97 Oxygen Delivery Method Room Air Sepsis Recent Fever Within 48 Hours Sepsis New/Unexplained Change in Mental Status Sepsis Action Taken by Nursing 07/07/24 21:21 Temperature Temperature Source Pulse Rate 73 Pulse Rate [Left Finger] Respiratory Rate 19 Respiratory Effort / Characteristics Respiratory Depth Blood Pressure 155/97 H Blood Pressure [Left Arm] Blood Pressure Mean Blood Pressure Mean [Left Arm] Pulse Oximetry 97 Oxygen Delivery Method Room Air Sepsis Recent Fever Within 48 Hours Sepsis New/Unexplained Change in Mental Status Sepsis Action Taken by Nursing Laboratory Data 07/07/24 13:40 07/07/24 13:40 Lab Results 07/07/24 07/07/24 07/07/24 Range/Units 13:40 13:45 15:06 WBC 9.70 (4.8-10.8) K/ul RBC 4.43 (4.20-5.40) M/uL Hgb 12.8 (12.0-16.0) g/dl Hct 39.2 (37.0-47.0) % MCV 88.5 (80.0-100.0) fL MCH 28.9 (25.0-34.0) pg MCHC 32.7 (32.0-36.0) g/dL RDW Std Deviation 45.3 (36.4-46.3) fL RDW Coeff of [place] 13.9 (11.5-14.5) % Plt Count 236 (130-400) K/uL MPV 10.5 (9.4-12.4) fL Immature Gran % (Auto) 0.3 % Neut % (Auto) 74.2 % Lymph % (Auto) 18.0 % [place] % (Auto) 5.8 % Eos % (Auto) 1.3 % Baso % (Auto) 0.4 % Neut # (Auto) 7.19 H (1.40-6.50) K/uL Lymph # (Auto) 1.75 (1.20-3.40) K/uL [place] # (Auto) 0.56 (0.11-0.59) K/uL Eos # (Auto) 0.13 (0.00-0.50) K/uL Baso # (Auto) 0.04 (0.00-0.20) K/uL Immature Gran # (Auto) 0.03 (0.01-0.20) K/uL ESR 36 H (0-30) mm/hr PT 10.9 (9.0-12.0) Seconds INR 1.0 (0.9-1.1) APTT 27 (21-31) Seconds PTT Ratio 1.0 D-Dimer 840 H* (0-500) ug/L FEU Sodium 140 (136-145) mmol/L Potassium 4.2 (3.5-5.1) mmol/L Chloride 107 (98-107) mmol/L Carbon Dioxide 26 (21-32) mmol/L Anion Gap 7 (3-11) BUN 14 (6-23) mg/dl Creatinine 0.88 (0.6-1.2) mg/dl Est Cr Clr Drug Dosing 60.9 ml/min Est GFR ( Amer) 75.5 ml/min Est GFR (Non-Af Amer) 65.2 ml/min BUN/Creatinine Ratio 15.9 (10-20) Glucose 118 H (70-99(Fasting)) mg/dl Calcium 9.4 (8.6-10.3) mg/dl Magnesium 1.9 (1.7-2.4) mg/dl Total Bilirubin 0.4 (0.2-1.0) mg/dl AST 19 (13-39) U/L ALT 17 (7-52) U/L Alkaline Phosphatase 66 (34-104) U/L Troponin I High Sens 7.7 9.6 (0-14) pg/ml C-Reactive Protein < 0.50 (0-0.5) mg/dl Total Protein 7.6 (6.0-8.3) gm/dl Albumin 4.3 (3.4-5.0) gm/dl Globulin 3.3 (2.5-4.0) gm/dl Albumin/Globulin Ratio 1.3 (0.9-2) TSH 2.778 (0.300-4.500) uIu/ml Urine Color Urine Appearance (Clear) Urine pH (4.5-7.5) Ur Specific [place] (1.000-1.030) Urine Protein (Negative) Urine Glucose (UA) (Negative) Urine Ketones (Negative) Urine Blood (Negative) Urine Nitrite (Negative) Urine Bilirubin (Negative) Urine Urobilinogen (Negative) Ur Leukocyte Esterase (Negative) Urine WBC (Auto) (0-5) /hpf Urine RBC (Auto) (0-2) /hpf U Hyaline Cast (Auto) (0-2) /lpf U Epithel Cells (Auto) (0-2) /hpf Urine Bacteria (Auto) (None Seen) SARS-CoV-2 (PCR) NEGATIVE (Negative) Influenza Type A (PCR) Negative (Neg) Influenza Type B (PCR) Negative (Neg) RSV (RT-PCR) Negative (Neg) 07/07/24 Range/Units Unknown WBC (4.8-10.8) K/ul RBC (4.20-5.40) M/uL Hgb (12.0-16.0) g/dl Hct (37.0-47.0) % MCV (80.0-100.0) fL MCH (25.0-34.0) pg MCHC (32.0-36.0) g/dL RDW Std Deviation (36.4-46.3) fL RDW Coeff of [place] (11.5-14.5) % Plt Count (130-400) K/uL MPV (9.4-12.4) fL Immature Gran % (Auto) % Neut % (Auto) % Lymph % (Auto) % [place] % (Auto) % Eos % (Auto) % Baso % (Auto) % Neut # (Auto) (1.40-6.50) K/uL Lymph # (Auto) (1.20-3.40) K/uL [place] # (Auto) (0.11-0.59) K/uL Eos # (Auto) (0.00-0.50) K/uL Baso # (Auto) (0.00-0.20) K/uL Immature Gran # (Auto) (0.01-0.20) K/uL ESR (0-30) mm/hr PT (9.0-12.0) Seconds INR (0.9-1.1) APTT (21-31) Seconds PTT Ratio D-Dimer (0-500) ug/L FEU Sodium (136-145) mmol/L Potassium (3.5-5.1) mmol/L Chloride (98-107) mmol/L Carbon Dioxide (21-32) mmol/L Anion Gap (3-11) BUN (6-23) mg/dl Creatinine (0.6-1.2) mg/dl Est Cr Clr Drug Dosing ml/min Est GFR ( Amer) ml/min Est GFR (Non-Af Amer) ml/min BUN/Creatinine Ratio (10-20) Glucose (70-99(Fasting)) mg/dl Calcium (8.6-10.3) mg/dl Magnesium (1.7-2.4) mg/dl Total Bilirubin (0.2-1.0) mg/dl AST (13-39) U/L ALT (7-52) U/L Alkaline Phosphatase (34-104) U/L Troponin I High Sens (0-14) pg/ml C-Reactive Protein (0-0.5) mg/dl Total Protein (6.0-8.3) gm/dl Albumin (3.4-5.0) gm/dl Globulin (2.5-4.0) gm/dl Albumin/Globulin Ratio (0.9-2) TSH (0.300-4.500) uIu/ml Urine Color Yellow Urine Appearance Clear (Clear) Urine pH 5.5 (4.5-7.5) Ur Specific [place] 1.021 (1.000-1.030) Urine Protein Negative (Negative) Urine Glucose (UA) Negative (Negative) Urine Ketones Negative (Negative) Urine Blood Trace H (Negative) Urine Nitrite Negative (Negative) Urine Bilirubin Negative (Negative) Urine Urobilinogen Negative (Negative) Ur Leukocyte Esterase Negative (Negative) Urine WBC (Auto) 0-5 (0-5) /hpf Urine RBC (Auto) 3-5 H (0-2) /hpf U Hyaline Cast (Auto) 0-2 (0-2) /lpf U Epithel Cells (Auto) 0-2 (0-2) /hpf Urine Bacteria (Auto) None Seen (None Seen) SARS-CoV-2 (PCR) (Negative) Influenza Type A (PCR) (Neg) Influenza Type B (PCR) (Neg) RSV (RT-PCR) (Neg) Administered Medications Discontinued Medications Sodium Chloride (Nss) 250 mls @ 999 mls/hr IV .Q16M ONE Stop: 07/07/24 13:29 Last Infusion: 07/07/24 15:41 Dose: Infused Documented By: Admin: 07/07/24 15:23 Dose: 999 mls/hr Documented By: GHAZALA Acetaminophen (Ofirmev) 1,000 mg in 100 mls @ 400 mls/hr IV NOW STA Stop: 07/07/24 13:28 Last Infusion: 07/07/24 15:41 Dose: Infused Documented By: Admin: 07/07/24 15:23 Dose: 400 mls/hr Documented By: GHAZALA Ioversol (Optiray 320 125ml) 116 ml IV ONCE ONE Stop: 07/07/24 16:23 Last Admin: 07/07/24 16:22 Dose: 116 ml Documented By: MARGE Nitroglycerin (Nitroglycerin Sl 0.4 Mg/Tab Tab) 0.4 mg SL NOW STA Stop: 07/07/24 15:39 Last Admin: 07/07/24 15:41 Dose: 0.4 mg Documented By: ASW Imaging Data Radiologist's Impression: Chest X-Ray 07/07/24 11:47 XR chest 1V not portable HISTORY: 74 years-old Female Chest pain, nonspecific COMPARISON: 06/27/2024 TECHNIQUE: PA view of the chest FINDINGS: Cardiac silhouette is enlarged. Median sternotomy. Mild chronic interstitial coarsening. There is no pneumothorax, pleural effusion or airspace consolidation. The bones appear intact. IMPRESSION: Cardiomegaly without acute process. ACT 112: Negative or not required by law. The above report was generated using voice recognition software. It may contain grammatical, syntax or spelling errors. Electronically signed by: Ld Coy M.D. 07/07/2024 2:34 PM Chest CTA 07/07/24 15:20 CHEST CTA for PULMONARY ARTERIES CT DOSE: 769.18 mGy.cm HISTORY: Weakness. Chest heaviness. TECHNIQUE: Multiaxial CT images of the chest were performed following the intravenous administration of contrast to evaluate the pulmonary arteries. 3D/Maximal intensity projection images were also obtained. Sagittal and coronal reformations were also reviewed. A dose lowering technique was utilized adhering to the principles of ALARA. COMPARISON STUDY: Chest CTA 06/06/2024. FINDINGS: Normal caliber thoracic aorta with no evidence for a dissection. The heart remains mildly enlarged. No pleural effusions. The scattered segmental/subsegmental pulmonary emboli seen on the prior study have almost completely resolved in the interval. There are few small linear nonocclusive filling defects remaining consistent with chronic pulmonary emboli. No new filling defects within the pulmonary arteries to suggest an acute pulmonary embolus. No evidence for right-sided heart strain. Trace pericardial effusion, unchanged. Limited views of the upper abdomen demonstrate a normal liver, spleen, and adrenal glands. Normal thyroid gland. Normal esophagus. No mediastinal or hilar lymphadenopathy. Poststernotomy changes are again noted with progressive lucency at the sternal incision and no significant bony bridging identified. A small amount of retrosternal fluid has improved and suggests a resolving postoperative seroma. No acute fractures within the chest. No pneumothorax. The central airways are patent. Respiratory motion artifact results in suboptimal evaluation the lungs. A few bibasilar linear densities consistent with subsegmental atelectasis. Mosaic attenuation within the lungs consistent with air trapping. No evidence for pulmonary edema. No new focal lung consolidations to suggest a pneumonia. IMPRESSION: 1. Near-complete resolution of the scattered segmental/subsegmental pulmonary emboli with a few small linear nonocclusive chronic emboli remaining. No new filling defects within the pulmonary arteries to suggest an acute pulmonary embolus. 2. Mosaic attenuation within the lungs consistent with air trapping. 3. Bibasilar linear densities favor subsegmental atelectasis. 4. Cardiomegaly and a trace pericardial effusion, unchanged. 5. Poststernotomy changes are again noted with progressive lucency at the sternal incision and no significant bony bridging identified. A small amount of retrosternal fluid has improved and suggests a resolving postoperative seroma. 6. Additional findings as described above. ACT 112: Negative or not required by law. Electronically signed by: Diaz Rubio M.D. 07/07/2024 5:23 PM Discharge Plan Visit Data Chief Complaint: Hypertension Stated Complaint: HIGH BP, HEAVINESS IN CHEST ED Provider: Roberto Coello ED Midlevel Provider: Ela Khan Discharge Problem: Chest pain, Hypertension, S/P CABG x 3 Patient Disposition: Admitted As Inpatient Condition: Good Discharge Instructions Interventions: ED Discharge Assessment Last Done: 07/07/24 21:21 Prescriptions Prescriptions: No Action coenzyme Q10 [Co Q-10] 200 mg Capsule 200 mg PO QAM aspirin [Ousmane Low Dose Aspirin] 81 mg Tablet,Delayed Release (Dr/Ec) 81 mg PO DAILY pantoprazole 40 mg tablet,delayed release (DR/EC) 40 mg PO DAILYBB multivitamin Tablet 1 tab PO QAM pravastatin 40 mg tablet 40 mg PO HS mirtazapine 15 mg tablet 7.5 mg PO HS Eliquis 5 mg tablet 5 mg PO BID magnesium oxide 400 mg (241.3 mg magnesium) tablet 200 mg PO QAM lisinopril 20 mg tablet 40 mg PO QAM tramadol 50 mg tablet 25 mg PO Q6H PRN (Reason: Moderate Pain (Scale Score 5-6)) levalbuterol tartrate 45 mcg/actuation HFA aerosol inhaler 1 inh INHALATION UD PRN (Reason: Shortness Of Breath) metoprolol succinate 25 mg Tablet Extended Release 24 Hr 25 mg PO BID Qty: 60 1RF Discharge Problem: Chest pain Qualifiers: Chest pain type: unspecified Qualified Code(s): R07.9 - Chest pain, unspecified Hypertension Qualifiers: Hypertension type: unspecified Qualified Code(s): I10 - Essential (primary) hypertension
[2024-07-07 14:14] LABS: Basophils # (auto) 0.04 K/uL (0.00-0.20); Basophils % (auto) 0.4 %; Eosinophils # (auto) 0.13 K/uL (0.00-0.50); Eosinophils % (auto) 1.3 %; Hematocrit (blood only) 39.2 % (37.0-47.0); Hemoglobin 12.8 g/dl (12.0-16.0); Immature Granulocytes # (auto) 0.03 K/uL (0.01-0.20); Immature Granulocytes % (auto) 0.3 %; Lymphocytes # (auto) 1.75 K/uL (1.20-3.40); Mean Corpuscular Hemoglobin 28.9 pg (25.0-34.0); Mean Corpuscular Hgb Conc 32.7 g/dL (32.0-36.0); Mean Corpuscular Volume 88.5 fL (80.0-100.0); Mean Platelet Volume 10.5 fL (9.4-12.4); Monocytes # (auto) 0.56 K/uL (0.11-0.59); Monocytes % (auto) 5.8 %; Neutrophils # (auto) 7.19 K/uL (1.40-6.50); Neutrophils % (auto) 74.2 %; Platelet Count 236 K/uL (130-400); RDW Coefficient of Variation 13.9 % (11.5-14.5); RDW Standard Deviation 45.3 fL (36.4-46.3); Red Blood Count 4.43 M/uL (4.20-5.40)
[2024-07-07 14:35] LABS: Alanine Aminotransferase 17 U/L (7-52); Albumin Globulin Ratio 1.3 (0.9-2); Albumin Level 4.3 gm/dl (3.4-5.0); Alkaline Phosphatase 66 U/L (34-104); Anion Gap 7 (3-11); Aspartate Aminotransferase 19 U/L (13-39); BUN Creatinine Ratio 15.9 (10-20); Bilirubin,Total 0.4 mg/dl (0.2-1.0); Blood Urea Nitrogen 14 mg/dl (6-23); Calcium 9.4 mg/dl (8.6-10.3); Carbon Dioxide 26 mmol/L (21-32); Chloride 107 mmol/L (98-107); Creatinine Clr Calc Pharmacy 60.9 ml/min; Est GFR (African American) 75.5 ml/min; Est GFR (Non-African American) 65.2 ml/min; Globulin 3.3 gm/dl (2.5-4.0); Glucose 118 mg/dl (70-99(Fasting)); Magnesium 1.9 mg/dl (1.7-2.4); Potassium 4.2 mmol/L (3.5-5.1); Sodium 140 mmol/L (136-145); Total Protein 7.6 gm/dl (6.0-8.3)
--- NOTE | 2024-07-07 14:35 | XRay Report ---
XR chest 1V not portable HISTORY: 74 years-old Female Chest pain, nonspecific COMPARISON: 06/27/2024 TECHNIQUE: PA view of the chest FINDINGS: Cardiac silhouette is enlarged. Median sternotomy. Mild chronic interstitial coarsening. There is no pneumothorax, pleural effusion or airspace consolidation. The bones appear intact. IMPRESSION: Cardiomegaly without acute process. ACT 112: Negative or not required by law. The above report was generated using voice recognition software. It may contain grammatical, syntax o r spelling errors. Electronically signed by: Ld Coy M.D. 07/07/2024 2:34 PM
[2024-07-07 14:40] LABS: Partial Thromboplastin Time 27 Seconds (21-31); Prothrombin Time 10.9 Seconds (9.0-12.0)
[2024-07-07 14:41] LABS: Troponin I High Sensitivity 7.7 pg/ml (0-14)
[2024-07-07 14:43] LABS: Influenza A virus by PCR Negative (Neg); Influenza B virus by PCR Negative (Neg); RSV by PCR Negative (Neg); SARS CoV2 RNA(COVID-19) Ceph NEGATIVE (Negative)
[2024-07-07 14:50] LABS: Thyroid Stimulating Hormone 2.778 uIu/ml (0.300-4.500)
[2024-07-07 15:17] LABS: D Dimer 840 ug/L FEU (0-500)
[2024-07-07] MEDS: ACETAMINOPHEN 1,000 MG/100 ML VIAL IV STA (15:23)
[2024-07-07] MEDS: SODIUM CHLORIDE 0.9% 250 ML IV ONE (15:23)
[2024-07-07] MEDS: NITROGLYCERIN SL 0.4 MG/TAB TAB SL STA (15:41)
--- NOTE | 2024-07-07 16:08 | Electrocardiogram Report ---
Test Reason : Blood Pressure : */* mmHG Vent. Rate : 73 BPM Atrial Rate : 73 BPM P-R Int : 178 ms QRS Dur : 106 ms QT Int : 352 ms P-R-T Axes : 0 -44 33 degrees QTcB Int : 387 ms Normal sinus rhythm Left axis deviation Minimal voltage criteria for LVH, may be normal variant ( [place] product ) Possible Old Anterior infarct (cited on or before 06-Jun-2024) Diffuse Minor Nonspecific T wave abnormality Abnormal ECG When compared with ECG of 29-Jun-2024 05:55, T-wave inversion in Anterior leads no longer present Confirmed by Alexander Crowley ([id number]) on 07/07/2024 4:07:45 PM Referred By: Confirmed By: Alexander Crowley
[2024-07-07] MEDS: OPTIRAY 320 125ml IV ONE (16:22)
--- NOTE | 2024-07-07 17:25 | CT Scan Report ---
CHEST CTA for PULMONARY ARTERIES CT DOSE: 769.18 mGy.cm HISTORY: Weakness. Chest heaviness. TECHNIQUE: Multiaxial CT images of the chest were performed following the intravenous administration of contrast to evaluate the pulmonary arteries. 3D/Maximal intensity projection images were also obta ined. Sagittal and coronal reformations were also reviewed. A dose lowering technique was utilized a dhering to the principles of ALARA. COMPARISON STUDY: Chest CTA 06/06/2024. FINDINGS: Normal caliber thoracic aorta with no evidence for a dissection. The heart remains mildly e nlarged. No pleural effusions. The scattered segmental/subsegmental pulmonary emboli seen on the prio r study have almost completely resolved in the interval. There are few small linear nonocclusive fill ing defects remaining consistent with chronic pulmonary emboli. No new filling defects within the pul monary arteries to suggest an acute pulmonary embolus. No evidence for right-sided heart strain. Trac e pericardial effusion, unchanged. Limited views of the upper abdomen demonstrate a normal liver, spl een, and adrenal glands. Normal thyroid gland. Normal esophagus. No mediastinal or hilar lymphadenopa thy. Poststernotomy changes are again noted with progressive lucency at the sternal incision and no s ignificant bony bridging identified. A small amount of retrosternal fluid has improved and suggests a resolving postoperative seroma. No acute fractures within the chest. No pneumothorax. The central ai rways are patent. Respiratory motion artifact results in suboptimal evaluation the lungs. A few bibas ilar linear densities consistent with subsegmental atelectasis. Mosaic attenuation within the lungs c onsistent with air trapping. No evidence for pulmonary edema. No new focal lung consolidations to sug gest a pneumonia. IMPRESSION: 1. Near-complete resolution of the scattered segmental/subsegmental pulmonary emboli with a few small linear nonocclusive chronic emboli remaining. No new filling defects within the pulmonary arteries t o suggest an acute pulmonary embolus. 2. Mosaic attenuation within the lungs consistent with air trapping. 3. Bibasilar linear densities favor subsegmental atelectasis. 4. Cardiomegaly and a trace pericardial effusion, unchanged. 5. Poststernotomy changes are again noted with progressive lucency at the sternal incision and no sig nificant bony bridging identified. A small amount of retrosternal fluid has improved and suggests a r esolving postoperative seroma. 6. Additional findings as described above. ACT 112: Negative or not required by law. Electronically signed by: Diaz Rubio M.D. 07/07/2024 5:23 PM
--- NOTE | 2024-07-07 17:48 | Emergency Department Note ---
ED Visit Note I was consulted by the Advanced Practice Provider. The case was discussed at length. I personally made/approved the management plan and take responsibility for the patient management. I performed a substantive portion of the visit. This includes the aspects of: [-I independently interpreted the following studies:][Chest x-ray shows some mild cardiomegaly and a torturous aorta. There is no CHF, pneumothorax or pneumonia.] Patient presents with hypertension and some chest discomfort. ECG did not show findings of acute CO. She had a positive D-dimer, CT imaging did not show PE. Patient did receive some sublingual nitroglycerin during her stay. Patient was feeling improved after her ED treatment. Cardiology was consulted, given the patient's complaints, given her history and presentation, given the use of nitroglycerin, the patient will be hospitalized for further cardiac workup. .
[2024-07-07 18:24] LABS: Appearance Urine Clear (Clear); Bacteria Urine Automated None Seen (None Seen); Bilirubin Urine Negative (Negative); Blood Urine Trace (Negative); Cast Urine Automated 0-2 /lpf (0-2); Color Urine Yellow; Epithelial Cell Urine Auto 0-2 /hpf (0-2); Glucose Urine UA Negative (Negative); Ketones Urine Negative (Negative); Leukocyte Esterase Urine Negative (Negative); Nitrite Urine Negative (Negative); Protein Urine Negative (Negative); Specific Gravity Urine 1.021 (1.000-1.030); Urobilinogen Urine Negative (Negative); WBC Urine Automated 0-5 /hpf (0-5); pH Urine 5.5 (4.5-7.5)
--- NOTE | 2024-07-07 18:29 | History & Physical Report ---
Date of Service July 07, 2024 Assessment & Plan (1) Chest pain: (2) Chills without fever: (3) S/P CABG x 3: Plan Ms. Trujillo is a 74-year-old female with past medical history significant for hyperlipidemia, multinodular thyroid, mild intermittent asthma, seasonal aller gic rhinitis, hiatal hernia, hypertension, frequent PVCs, multiple vessel coronary artery disease status post CABG recently, GERD, pulmonary hypertension, CKD stage III, general osteoarthritis of multiple sites, history of C. difficile infection, primary insomnia presenting to the ED with chest pain. Discussed case with Dr Daugherty over phone. Admission for close eval given complex history. ESR 36 and CRP <0.50 #Atypical chest pain trop negative x 2 EKG no acute ischemia, however, diffuse changes noted compared to prior baseline Resolved after nitro Will hold on starting additional hypertensive for Cards eval given unclear etiology of chest pain and whether nitrate v ccb more appropriate Admit PCU and monitor on tele EKG in am Cards consult nitro prn #Uncontrolled HTN #Obstructive CAD s/pCABG X 3 HERNANDEZ to LAD SVG to OM, PDA #HLD performed by Dr. Jay May 15, 2024. 06/13 ECHO with EF 60-65% Continue Metoprolol XL BID Continue Lisinopril 40mg daily Continue ASA and pravastatin Cardiology consult given complex medical history Pressure better controlled after pain with nitro, continue to monitor, prn IV hydralazine #Elevated glucose #Prediabetes 5.8% in 04/2024 Repeat A1C in am #Postoperative paroxysmal atrial fibrillation #Symptomatic premature ventricular complexes Continue Metoprolol XL 25mg BID Monitor on tele Continue magnesium supplement #Recent bilateral pulmonary emboli, provoked iso recent cabg diagnosed 06/06 s/p 04/2024 CABG procedure Imaging 07/07 revealed near resolution Continue eliquis #mild intermittent asthma Continue home inhalers #Hiatal hernia #GERD On Protonix #Mood d/o Continue mirtazapine DVT prophylaxis On Eliquis Admission and Anticipated Discharge Date Admission Date: Time spent evaluating patient, direct bedside care, chart review, placing orders, interpretation of diagnostic studies, discussion with consultants, patient, and family members, as well as other required patient management activities is 75 minutes. History of Present Illness Chief Complaint: Chest pain, HTN Primary Care Provider: Jasmina Taylor MD Ms. Trujillo is a 74-year-old female with past medical history significant for hyperlipidemia, multinodular thyroid, mild intermittent asthma, seasonal allergic rhinitis, hiatal hernia, hypertension, frequent PVCs, multiple vessel coronary artery disease status post CABG recently, GERD, pulmonary hypertension, CKD stage III, general osteoarthritis of multiple sites, history of C. difficile infection, primary insomnia presenting to the ED with chest pressure. Patient with notable recent medical history. Patient with recent CABG x 3 at [facility] at the end of April 2024 c/b post-op atrial fibrillation. Completed c ourse of amiodarone and Lasix. Then patient admitted 06/06-06/08 and found to have acute pulmonary embolism and was placed on Eliquis. Readmission occurred on 06/11-06/14 for symptomatic PVCs in which metoprolol succinate 25 mg twice daily was started. Patient readmitted again on 06/27 in which lisinopril was started, with possibility of adding norvasc. Patient states that for weeks she has experienced persistent chest pressure. It is left-sided/substernal. Not reproducible to palpation. Not worsened on exertion. Patient reports that she sleeps on a wedge at baseline and denies any FAIR/SOB. During exam when laid flat, she notes worsening of chest pressure which improved upon sitting back upward. Patient denies fevers but notes intermittent chills and night sweats. Patient denies cough, urinary or bowel changes, or other acute concerns. Pain was improved with nitro. In the ED, vitals were notable for BP of 130-160s over 90-100s , HR of 60s, and O2 sat of high 90s on room air LABS: UA with microscopic hematuria, covid/flu negative, ddimer 840, bmp WNL, ESR 36, crp <0.50 Imaging revealed: CTA with nearly resolution of pulmonary emboli and no acute emboli noted, residual trace pericardial effusion unchanged from prior imaging EKG on 06/29 reviewed with TWI noted. EKG on arrival 07/07 with diffuse flattening noted. ED interventions: s/p 250cc bolus, tylenol IV, nitro SL Consultants: Discussed with Dr. Daugherty Patient to be admitted to Med/Tele for further evaluation and management of chest pain Allergies Allergy/AdvReac Type Severity Reaction Status Date / Time Sulfa (Sulfonamide Allergy Intermediate Hives Verified 06/27/24 21:32 Antibiotics) codeine AdvReac Intermediate "deathly Verified 06/27/24 21:32 sick and I throw up" levofloxacin [From Levaquin] AdvReac Mild Nausea Verified 06/27/24 21:32 Home Medications Medication Instructions Recorded Confirmed Type coenzyme Q10 200 mg capsule (Co 200 mg PO QAM 02/12/19 07/07/24 History Q-10) aspirin 81 mg tablet,delayed 81 mg PO DAILY 08/17/20 07/07/24 History release (Ousmane Low Dose Aspirin) pantoprazole 40 mg tablet,delayed 40 mg PO DAILYBB 08/28/22 07/07/24 History release mirtazapine 15 mg tablet 7.5 mg PO HS 03/04/24 07/07/24 History multivitamin 1 tab PO QAM 03/04/24 07/07/24 History pravastatin 40 mg tablet 40 mg PO HS 03/04/24 07/07/24 History levalbuterol tartrate 45 1 inh inhalation UD PRN Shortness 06/06/24 07/07/24 History mcg/actuation aerosol inhaler Of Breath tramadol 50 mg tablet 25 mg PO Q6H PRN Moderate Pain 06/06/24 07/07/24 History (Scale Score 5-6) metoprolol succinate 25 mg 25 mg PO BID #60 tabs 06/14/24 07/07/24 Rx tablet,extended release 24 hr apixaban 5 mg tablet (Eliquis) 5 mg PO BID 06/27/24 07/07/24 History magnesium oxide 400 mg (241.3 mg 200 mg PO QAM 06/27/24 07/07/24 History magnesium) tablet lisinopril 20 mg tablet 40 mg PO QAM 07/07/24 07/07/24 History Past Med/Surg History Problem List (Updated 06/27/24 @ 23:45 by Rehan Molina MD) PVCs (premature ventricular contractions) Palpitations Chest pain (Acute) Chills without fever S/P CABG x 3 Pulmonary embolism (Acute) Abnormal nuclear stress test Family history of coronary artery disease (Acute) Chest pain (Acute) Chest pain Acute lower GI bleeding Rectal bleed (Acute) Bronchitis (Acute) Rectal bleeding Gastroenteritis (Acute) History of diverticulitis (Chronic) Encounter for pre-operative examination Diarrhea (Acute) Nausea and vomiting (Acute) Anterior T wave inversion (Acute) Acute electrocardiogram changes (Acute) Abdominal pain, epigastric (Acute) Discharge planning issues Encounter for pre-operative examination GERD (gastroesophageal reflux disease) (Chronic) Osteoarthritis (Chronic) Medical History CAD (coronary artery disease), [place] coronary artery Hypertensive emergency Asthma RARELY USES PRN INH HTN (hypertension) History of basal cell carcinoma Diverticular disease Valvular heart disease "LEAKY VALVE" - FOLLOWS W/ DR. DE SANTIAGO Hypertension Hyperlipidemia Surgical History S/P CABG (coronary artery bypass graft) History of cataract surgery LEFT History of basal cell carcinoma (BCC) excision History of hysterectomy History of esophagogastroduodenoscopy (EGD) History of colonoscopy Family History Sister Diabetes Brother Diabetes Other Heart disease Hypertension Social History Smoking Status: Never smoker Second Hand Exposure: No; Do You Dip or Chew Tobacco: No; Hx Alcohol Use: No Hx Substance Use: No Preferred Language: Jamaican Communication Ability: Effective Visual Impairment: Limited Hearing Ability: Normal Trade [employer] Required: No Beliefs That Will Affect Care: None marital status: Current Living Situation: Spouse Current Living Situation Comment: With , own home, [address] Feels Safe at Home: Yes Assistive Devices: Cane and Glasses Review of Systems Review of Systems: Constitutional: (-) fever (+)chills, (-) recent loss of weight, (-) appetite changes, (+) night sweats. Head: (-) headache, (-) dizziness. Eye: (-) blurring of vision, (-) double vision, (-) redness. Ear: (-) hearing loss, (-) discharge, (-) vertigo Nose: (-) discharge, (-) bleeding, (-) congestion, (-) post nasal drip. Throat: (-) sore throat, (-) hoarseness of voice, (-) odynophagia. Cardiovascular: (+) chest pain, (-) palpitations, (-) syncope, (-) orthopnea, (- ) PND, (-) leg swelling. Respiratory: (-) shortness of breath, (-) cough, (-) wheezing, (-) hemoptysis. Neuro: (-) weakness in extremities, (-) numbness, (-) tingling, (-) tremor. Gastrointestinal: (-) belly pain, (-) belly distension, (-) nausea, (-) vomiting, (-) diarrhea, (-) constipation hematochezia, (-) bowel incontinence Genitourinary: (-) hematuria, (-) dysuria, (-) polyuria, (-) hesitancy, (-) frequency, (-) urinary incontinence. Musculoskeletal: (-) myalgia, (-) arthralgia. Skin: (-) rashes. Endocrine: (-) heat/cold intolerance. Psychiatry: (-) depression, (-) hallucination. Physical Exam Physical Exam: GENERAL APPEARANCE: AxOx4, generally well-appearing F, no acute distress. HEENT: NC, AT. MMM. EOMI, clear conjunctiva, oropharynx clear. NECK: Supple without lymphadenopathy. No stiffness or restricted ROM. HEART: Normal rate and regular rhythm, normal S1/S1, no m/r/g; could not appreciate rub, reported pressure increased laying flat however, no overt grimace, sob or other symptoms LUNGS: CTAB, moving air well. No crackles or wheezes are heard. ABDOMEN: Soft, nontender, nondistended with good bowel sounds heard. EXTREMITIES: Without cyanosis, clubbing or edema. NEUROLOGICAL: Grossly nonfocal. Alert and oriented, moving all 4 extremities. CN not formally tested but appear grossly intact. Skin: Warm and dry without any rash. Results & Data Results & Data Vital Signs (Past 12 Hours) Vital Signs Temp Pulse Pulse Resp BP BP Pulse Ox 07/07/24 17:38 64 19 137/90 98 07/07/24 16:11 69 07/07/24 15:20 71 19 161/100 H 99 07/07/24 11:43 36.5 C 75 20 164/107 H 99 O2 Del Method 07/07/24 17:38 Room Air 07/07/24 16:11 07/07/24 15:20 Room Air 07/07/24 11:43 Room Air Laboratory Results Short CBC 07/07/24 Range/Units 13:40 WBC 9.70 (4.8-10.8) K/ul Hgb 12.8 (12.0-16.0) g/dl Hct 39.2 (37.0-47.0) % Plt Count 236 (130-400) K/uL BMP 07/07/24 13:40 Sodium 140 Potassium 4.2 Chloride 107 Carbon Dioxide 26 BUN 14 Creatinine 0.88 Glucose 118 H Calcium 9.4 Liver Function 07/07/24 Range/Units 13:40 Total Bilirubin 0.4 (0.2-1.0) mg/dl AST 19 (13-39) U/L ALT 17 (7-52) U/L Alkaline Phosphatase 66 (34-104) U/L Albumin 4.3 (3.4-5.0) gm/dl Diagnostic Findings Cardiac catheterization report May 13, 2024: Summary of Findings 95% proximal LAD 80% mid RCA 50% proximal OM2 Hemodynamics Rest Ao:106/70/87 Final Ao: 120/75/91 LV: 127/-1/5 2D echocardiogram report June 13, 2024: C Normal left ventricular wall motion. Mild tricuspid regurgitation. Findings do not suggest pulmonary hypertension. Medications Administered Home Medications Medication Instructions Recorded Confirmed Last Taken coenzyme Q10 200 mg capsule (Co 200 mg PO QA 02/12/19 07/07/24 03/03/24 Q-10) aspirin 81 mg tablet,delayed 81 mg PO DAILY 08/17/20 07/07/24 Unknown release (Ousmane Low Dose Aspirin) pantoprazole 40 mg tablet,delayed 40 mg PO DAILYBB 08/28/22 07/07/24 03/04/24 release mirtazapine 15 mg tablet 7.5 mg PO HS 03/04/24 07/07/24 03/03/24 multivitamin 1 tab PO QAM 03/04/24 07/07/24 03/03/24 pravastatin 40 mg tablet 40 mg PO HS 03/04/24 07/07/24 03/03/24 levalbuterol tartrate 45 1 inh inhalation UD PRN Shortness 06/06/24 07/07/24 Unknown mcg/actuation aerosol inhaler Of Breath tramadol 50 mg tablet 25 mg PO Q6H PRN Moderate Pain 06/06/24 07/07/24 Unknown (Scale Score 5-6) metoprolol succinate 25 mg 25 mg PO BID #60 tabs 06/14/24 07/07/24 Unknown tablet,extended release 24 hr apixaban 5 mg tablet (Eliquis) 5 mg PO BID 06/27/24 07/07/24 Unknown magnesium oxide 400 mg (241.3 mg 200 mg PO QAM 06/27/24 07/07/24 Unknown magnesium) tablet lisinopril 20 mg tablet 40 mg PO QAM 07/07/24 07/07/24 Unknown (1) Chest pain Chest pain type: unspecified Qualified Code(s): R07.9 - Chest pain, unspecified
[2024-07-07 18:46] LABS: C Reactive Protein < 0.50 mg/dl (0-0.5)
--- OUTSIDE RECORDS SUMMARY | 2024-07-07 20:07 | External Medical Summary | Summary of Care ---
Author Name Unknown Organization [facility] Address [address] [facility] [place] [address] Phone [phone] Care Team Providers Care Radiagraph Operator Name Role Phone Jasmina Taylor MD Primary Care Provide r Reason for Visit * Reason Onset Date Comments Follow Up 07/03/2024 Encounter Details Date Type Department Care Team (Late st Contact Info) Description 07/03/2024 Telephone [facility] [place] [address] [place] [address] Sarah Manuel, RN [address] [place] [address] Follow Up Allergies Active Allergy Reactions Criticality Noted Date Comments Baclofen 04/26/2022 Vertigo/extreme dizziness Codeine 02/18/2013 "deathly sick" Levofloxacin Nausea/vomiting 08/12/2018 Sulfa Antibiotics 08/25/2001 Rash documented as of this encounter (statuses as of 07/03/2024) Medications Medication Sig Dispensed Refills Start Date [...] Tablet before bedtime. 180 Tablet 06/24/2024 Active Nitroglycerin 0.3 MG Sublingual Tablet Sublingual (Nitrostat) Place 1 Tablet under the tongue as needed for Pain, Chest. May repeat 3 times. If chest pain continues, call 911. 25 Tablet 11 07/02/2024 Active Lisinopril 20 MG Oral Tablet (Prinivil) Take 1 Tablet by mouth in the morning. Active documented as of this encounter (statuses as of 07/03/2024) Active Problems Problem Noted Date Diagnosed Date Chronic kidney disease, stage 3a 06/25/2024 Pulmonary hypertension 05/25/2024 S/P CABG x 3 05/25/2024 Postoperative atrial fibrillation 05/25/2024 Coronary artery disease 05/13/2024 Overview: S/p CABG X 3 HERNANDEZ to LAD SVG to OM, PDA 05/15/[address] Tabares Last Assessment & Plan: Stable today Continue f/u with cardiology Continue metoprolol and statin Multiple vessel coronary artery disease 05/13/20 24 [...] as of this encounter (statuses as of 07/03/2024) Resolved Problems Problem Noted Date Diagnosed Date [...] as of this encounter (statuses as of 07/03/2024) Immunizations Name Administration Dates Next Due COVID-19 mRNA, LNP-s, No Pre serve, 2-Dose Series ([address]) 08/22/2021,12/14/2020,11/23/2020 COVID-19, LNP-s, No Preserve , Clive-sucrose, Ages 12+ (Pfizer) 02/13/2022 COVID-19, MRNA-LNP, 23-24, P F, 30 MCG/0.3 mL, 12 YRS AND ABOVE, IM ([employer]-Comirnaty) 08/23/2023 Covid-19, Mrna, Lnp-s, Pf, B ivalent, [...] 06/17/2024 Does the household have a re lar [...] encounter Miscellaneous Notes * Telephone Encounter - Cody Daugherty DO - 07/03/2024 4:10 PM EDT Chart reviewed in coverage of Dr. Laboy. I called and discussed her blood pressure with her. She has been on the lisinopril 20 milligrams daily for less than 6 days having recently been discharged from hospital. Systolic blood pressures have been under better control in the range of 120s to 140s. Some of her diastolic gradients however have persistent the 90s. Per review of the blood pressure readings performed in the 24 hours before discharge from the hospital her blood pressure was under excellent control in the 120s over 80s. We discussed options such as increasing the lisinopril from 20 milligrams to 40 milligrams, or adding HCTZ 12.5 milligrams daily and potassium 10 milliequivalents daily. Patient at this point would prefer to just stay on her lisinopril and continue watching her blood pressures which indicates reasonable given her recent CABG and pulmonary embolism, I think if we lower her blood pressure too much she may have symptoms to that regard. Cody Daugherty DO * Telephone Encounter - Sarah Manuel RN - 07/03/2024 1:[address] Laboy Patient discharged from [facility] r/t chest pain. Does continue with some mild chest discomfort- takes APAP prn. Discharged home with new script of Lisinopril 20mg daily. Patient has been taking BP at least daily since discharge. See below. 07/01- 141/96 HR 79 149/96 HR 75 07/02- 143/102 HR 80 8:20am 169/107 HR 80 11:00am 121/87 HR 78 1:30pm 122/90 HR 77 4:56pm 149/97 HR 80 07/03- 134/95 HR 78 7:43am 124/84 HR 71 Patient concerned regarding diastolic remaining in the 90's/low 100's. Denies headaches. Please advise. Thanks! Sarah documented in this encounter Plan of Treatment Upcoming Encounters Date Type Department Care Team (Late st Contact Info) Description 07/06/2024 5:40 PM EDT Office Visit Family [address] [place] [phone] Jasmina Taylor MD [address] [place] [address] [place] [address] 07/16/2024 2:00 PM EDT Home Visit [facility] [place] [address] [place] [address] Sarah Manuel, RN [address] [place] [address] 08/05/2024 10:00 AM EDT Home Visit [facility] [place] [address] [place] [address] Sarah Manuel, TAWANNA [address] [place] [address] 08/19/2024 3:00 PM EDT Office Visit Cardiology, [facility] [address] [place] [address] [place] Laboy O, DO [address] [place] [address] 08/25/2024 1:40 PM EST [address] [phone] Jasmina Taylor MD [address] [place] [address] [place] [address] 10/05/2024 2:00 PM EST Office Visit Gastroenterology, [facility] [address] [place] [address] Martha Porter CRNP [address] [place] [address] 01/20/2025 3:20 PM EDT Office Visit Dermatology [address] [place] [address] Carolynn Dailey PA-C [address] [place] [address] [place] [address] 06/18/2025 10:00 AM EDT Nurse Only Ancillary [address] [place] [address] [place], Nurse Annual [address] [place] [address] Scheduled Procedures Name Priority Associated Diagnoses Date/Ti me COLONOSCOPY FLEXIBLE PROXIMA L DIAGNOSTIC Recall Encounter for screening colonoscopy Health Maintenance Due Date Last Done Comments Sigmoidoscopy 1996 DTap/Tdap Vaccines (2 - Td or Tdap) 07/14/2018 07/14/2008 Fecal Occult Blood Test 09/16/2020 09/16/2019, 12/05 Cologuard 01/27/2021 01/27/2018 Albumin/Creatinine Ratio 12/11/2022 12/11/2021, 12/2018 Influenza Vaccine (FLU shot) (#1) 2024 07/06/2023, 07/07/2022, 06/29/2021, Additional history exists Mammogram 11/13/2024 11/13/2023, 10/21, 11/06/2022, Additional history exists GFR 12/18/2024 06/17/2024, 05/21, 06/07/2024, Additional history exists DXA Scan 02/27/2025 02/27/2022, 02/18, 01/21/2019, Additional history exists CKD PHOS USE SMARTSET 12423 06/08/202505/21, 03/14/2021, 09/22/2019 Adult Wellness Visit 06/17/2025 06/17/2024, 06/12/2023, 05/11/2022, Additional history exists CKD HGB USE SMARTSET 22603 06/17/202506/17, 06/07/2024, 05/20/2024, Additional history exists Depression [...] this encounter Medical Devices Implanted Type Area Salesforce Administrator Device Identifier Shelf Expiration Date Model / Serial / Lot Suture Steel 6 B&S19 M654g - [id number] Implanted:Qty: 7 on 05/15/2024 by Alfonso Jay MD at OR [facility] N/A: Sternum JNJ : [employer] 08/20/2028 M654G / / TMMAST Marker Coronary - [id number] Implanted:Qty: 1 on 05/15/2024 by Alfonso Jay MD at OR [facility] N/A: Aorta [employer] 04/19/2027 [facility] / / [id number] Description:attached to vein graft Marker Coronary - [id number] Implanted:Qty: 1 on 05/15/2024 by Alfonso Jay MD at OR [facility] N/A: Aorta [employer] 03/20/2027 [facility] / / [id number] Description:attached to vein graft documented as of [...] and were consensually agreed upon. Care Teams Radiagraph Operator Relationship Specialty Start Date End Date Jasmina Taylor MD [address] [place] [address] [place] [address] PCP - General Family Medicine 05/07/24 documented as of this encounter
--- OUTSIDE RECORDS SUMMARY | 2024-07-07 20:07 | External Medical Summary | Summary of Care ---
Author Name Unknown Organization [facility] Address [address] [place] [facility] [place] [facility] [place] [address] Phone [phone] Care Team Providers Care Continuous Improvement Black Belt Name Role Phone Jasmina Taylor MD Primary Care Provide r Encounter Details Date Type Department Care Team (Late st Contact Info) Description 07/04/2024 9:40 AM EDT Immunization Ancillary [address] [place] [address] [place] [address] [place] [address] Arrived Allergies Active Allergy Reactions Criticality Noted Date Comments Baclofen 04/26/2022 Vertigo/extreme dizziness Codeine 02/18/2013 "deathly sick" Levofloxacin Nausea/vomiting 08/12/2018 Sulfa Antibiotics 08/25/2001 Rash documented as of this encounter (statuses as of 07/04/2024) Medications Medication Sig Dispensed Refills Start Date [...] Tablet by mouth in the morning. Active Citalopram Hydrobromide 10 MG Oral Tablet (CeleXA) Take 1 Tablet by mouth in the morning. 90 Tablet 3 07/03/2024 Active documented as of this encounter (statuses as of 07/04/2024) Active Problems Problem Noted Date Diagnosed Date [...] statin Multiple vessel coronary artery disease 05/13/20 Primary [...] as of this encounter (statuses as of 07/04/2024) Resolved Problems Problem Noted Date Diagnosed Date [...] as of this encounter (statuses as of 07/04/2024) Immunizations Name Administration Dates Next Due COVID-19 mRNA, LNP-s, No Pre serve, 2-Dose Series ([place]) 08/22/2021,12/14/2020,11/23/2020 COVID-19, LNP-s, No Preserve , Clive-sucrose, Ages 12+ (Pfizer) 02/13/2022 COVID-19, MRNA-LNP, 23-24, P F, 30 MCG/0.3 mL, 12 YRS AND ABOVE, IM ([employer]join-Comirnat) 08/23/2023 Covid-19, Mrna, Lnp-s, Pf, B ivalent, 30 Mcg, IM, 12 yrs and above (Pfizer) 07/24/2022 Pneumococcal Conjugate Vacc, 13 Valent (Prevnar) 11/27/2016 Pneumococcal Polysaccharide PPV23 (Pneumovax) 01/22/2019,11/09/2013 Season Influenza, Quad, PF, Adjuvanted, 65+ Yrs, IM (FLUAD) 07/09/2020 Seasonal Influenza, High Dos e, Trivalent, PF, IM (Fluzone HD) 07/04/2024 Seasonal Influenza, PF, 6 M & above, [...] 07/06/2024 5:40 PM EDT Office Visit Family Medicine [address] [phone] Jasmina Taylor MD [address] [place] [address] [place] [address] 07/16/2024 2:00 PM EDT [facility] [address] [place] [address] Sarah Manuel, RN [address] [place] [address] 08/05/2024 10:00 AM EDT [facility] Visit [facility] [address] [place] [address] Sarah Manuel, RN [address] [place] [address] 08/19/2024 3:00 PM EDT Office Visit Cardiology, [facility] [address] [place] [address] [place] Laboy DO [address] [place] [address] 08/25/2024 1:40 PM EST Office Visit Family [address] [phone] Jasmina Taylor MD [address] [place] [address] [place] [address] 10/05/2024 2:00 PM EST Office Visit Gastroenterology, [facility] [address] [place] [address] Martha Porter CRNP [address] [place] [address] 01/20/2025 3:20 PM EDT Office Visit Dermatology [address] [place] [address] Carolynn Dailey PA-C [address] [place] [address] [place] [address] 06/18/2025 10:00 AM EDT Nurse Only Ancillary [address] [place] [address] [place], Nurse Annual [address] [place] [address] Scheduled Procedures Name Priority Associated Diagnoses Date/Ti me COLONOSCOPY FLEXIBLE PROXIMA L DIAGNOSTIC Recall Encounter for screening colonoscopy Health Maintenance Due Date Last Done Comments Sigmoidoscopy 1996 DTap/Tdap Vaccines (2 - Td or Tdap) 07/14/2018 07/14/2008 Fecal Occult Blood Test 09/16/2020 09/16/2019, 12/05 Cologuard 01/27/2021 01/27/2018 Albumin/Creatinine Ratio 12/11/2022 12/11/2021, 1212/2018 Influenza Vaccine (FLU shot) (#1) 2024 07/04/2024, 07/06/2023, 07/07/2022, Additional history exists Mammogram 11/13/2024 11/13/2023, 10/21, 11/06/2022, Additional history exists GFR 12/18/2024 06/17/2024, 05/21, 06/07/2024, Additional history exists DXA Scan 02/27/2025 02/27/2022, 02/18, 01/21/2019, Additional history exists CKD PHOS USE SMARTSET 05021 06/08/202505/21, 03/14/2021, 09/22/2019 Adult Wellness Visit 06/17/2025 06/17/2024, 06/12/2023, 05/11/2022, Additional history exists CKD HGB USE SMARTSET 14160 06/17/202506/17, 06/07/2024, 05/20/2024, Additional history exists Depression Screening 06/17/2025 06/17/2024 Colonoscopy 03/15/2033 03/15/2023, 02/19, 08/20/2018, Additional history exists Colorectal Cancer Screening 03/15/2033 Pneumococcal Vaccine: 65+ Years Completed 01/22/2019, 11/27/2016, 11/09/2013 Zoster Vaccines Completed 05/16/2021, 02/19, 02/19/2013 COVID-19 Vaccine Discontinued 08/23/2023, 12/2022, 07/24/2022, Additional history exists HPV (Gardasil) Vaccine Aged Out No lo nger eligible based on patient's age to complete this topic Hepatitis B Vaccine Aged Out No longe r eligible based on patient's age to complete this topic MENINGOCOCCAL (MENACTRA/MENVEO) Aged Out No longer eligible based on patient's age to complete this topic documented as of this encounter Medical Devices Implanted Type Area Cupola Charger Insulation Device Identifier Shelf Expiration Date Model / Serial / Lot Suture Steel 6 B&S19 M654g - [id number] Implanted:Qty: 7 on 05/15/2024 by Alfonso Jay MD at [place] [facility] [place] N/A: Sternum JNJ : [employer] 08/20/2028 M654G / / TMMAST Marker Coronary - [id number] Implanted:Qty: 1 on 05/15/2024 by Alfonso Jay MD at [place] [facility] [place] N/A: Aorta [employer] 04/19/2027 [facility] / / [id number] Description:attached to vein graft Marker Coronary - [id number] Implanted:Qty: 1 on 05/15/2024 by Alfonso Jay MD at [place] [facility] [place] N/A: Aorta [employer] 03/20/2027 [facility] / / [id number] Description:attached to vein graft documented as of [...] and were consensually agreed upon. Care Teams Continuous Improvement Black Belt Relationship Specialty Start Date End Date Jasmina Taylor MD [address] [place] [address] [place] [address] PCP - General Family Medicine 05/07/24 documented as of this encounter
--- OUTSIDE RECORDS SUMMARY | 2024-07-07 20:07 | External Medical Summary | Summary of Care ---
Author Name Unknown Organization [facility] Address [address] [place] [address] Phone [phone] Care Team Providers Care Morning Caregiver Name Role Phone Jasmina Taylor MD Primary Care Provide r Reason for Visit * Reason Onset Date Comments Hospital Follow-Up Hospital Follow-Up 07/06/2024 Encounter Details Date Type Department Care Team (Late st Contact Info) Description 07/06/2024 5:40 PM EDT Office Visit Family Medicine [address] [phone] Jasmina Taylor MD [address] [place], [place] [address] [id number] Hospital discharge follow-up*; Chest heaviness; S/P CABG x 3; HTN, goal below 140/90; Postoperative atrial fibrillation (HCC); 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); Chronic kidney disease, stage 3a ([facility]); Gastroesophageal reflux disease without esophagitis; Acute pulmonary embolism without acute cor pulmonale, unspecified pulmonary embolism type ([facility]) Allergies Active Allergy Reactions Criticality Noted Date Comments Baclofen 04/26/2022 Vertigo/extreme dizziness Codeine 02/18/2013 "deathly sick" Levofloxacin Nausea/vomiting 08/12/2018 Sulfa Antibiotics 08/25/2001 Rash documented as of this encounter (statuses as of 07/06/2024) Medications Medication Sig Dispensed Refills Start Date End Date Status Coenzyme Q10 10 MG Capsule Take 2 Capsules by mouth in the morning. 02/12/2019 Active Multiple Vitamins-Minerals (MULTIVITAMIN ADULTS) TABS Take 1 Tab by mouth daily. Active aspirin enteric coated 81 MG TBEC Take 1 Tablet by mouth in the morning. 05/24/2020 Active Hydrocortisone 2.5 % External CreamIndications: Hemorrhoids, [...] Levalbuterol Tartrate 45 MCG/ACT Inhalation Aerosol (Xopenex HFA)Indications:M ild intermittent asthma without complication Inhale 2 Puffs by mouth every 4 hours as needed for Wheezing. 15 g 5 05/25/2024 Active Metoprolol Succinate ER 25 MG Oral [...] call 911. 25 Tablet 11 07/02/2024 Active Citalopram Hydrobromide 10 MG Oral Tablet (CeleXA) Take 1 Tablet by mouth in the morning. 90 Tablet 3 07/03/2024 Active Additional Information Patient not taking.Reported on 07/06/2024 Lisinopril 40 MG Oral TabletIndications :HTN, goal below 140/90 Take 1 Tablet by mouth in the morning. 100 Tablet 1 07/06/2024 Active Magnesium 200 MG Oral TabletIndications :Postoperative atrial fibrillation (HCC) Take 1 Tablet by mouth in the morning. 100 Tablet 1 07/06/2024 Active Magnesium 400 MG Oral Tablet Take 200 mg by mouth in the morning. 07/06/20 Discontinued Lisinopril 20 MG Oral Tablet (Prinivil) Take 1 Tablet by mouth in the morning. 07/06/20 24 Discontinued documented as of this encounter (statuses as of 07/06/2024) Active Problems Problem Noted Date Diagnosed Date Acute pulmonary embolism without acute cor pulmo nale 07/06/2024 Chronic kidney disease, stage 3a 06/25/2024 Pulmonary [...] as of this encounter (statuses as of 07/06/2024) Resolved Problems Problem Noted Date Diagnosed Date [...] as of this encounter (statuses as of 07/06/2024) Immunizations Name Administration Dates Next Due COVID-19 mRNA, LNP-s, No Pre serve, 2-Dose Series (Pfizer) 08/22/2021,12/14/2020,11/23/2020 COVID-19, LNP-s, No Preserve , Clive-sucrose, Ages 12+ (Pfizer) 02/13/2022 COVID-19, MRNA-LNP, 23-24, P F, 30 MCG/0.3 mL, 12 YRS AND ABOVE, IM ([employer] [facility]) 08/23/2023 Covid-19, Mrna, Lnp-s, Pf, B ivalent, 30 Mcg, IM, 12 yrs and above ([employer]) 07/24/2022 Pneumococcal Conjugate Vacc, 13 Valent (Prevnar) [...] Sign Reading Time Taken Comments Blood Pressure 148/94 07/06/2024 5:29 PM EDT Pulse 81 07/06/2024 5:29 PM EDT Temperature 36.8 C (98.3 F) 07/06/2024 5:29 PM ED T Respiratory Rate - - Oxygen Saturation 98% 07/06/2024 5:29 PM EDT Inhaled Oxygen Concentration - - Weight 84.4 kg (186 lb) 07/06/2024 5:29 PM EDT Height - - Body Mass Index 31.43 06/24/2024 12:34 PM EDT documented in this [...] * Patient Instructions* Jasmina Taylor MD - 07/06/2024 5:50 PM EDT Taking Medicine Safely Medicine is [...] street drugs, herbs, supplements, or even some wbwk-ulo-bzvsxeh medicines can be harmful. Talk to your [...] to get rid of medicine: Call your [facility] or [facility]'s household trash and recycling service and ask if a drug take-back program is available in your community. Call your local pharmacy and ask the right way to get rid of the medicine. Go to http://www.fda.gov/ForConsumers/ConsumerUpdates/xau100735 to learn how to get rid of [...] brand-name medicine, unless their doctor says otherwise. 6840-6721 [employer], [address] [place] [address], [place] [address]. All rights reserved. This information is not [...] best to keep a sense of humor. 7278-7964 [facility], [address] [place] [address]. All rights reserved. This information is not [...] and pharmacist about all the prescription and spnp-vpz-bdpoihs medicines you take.This includes vitamins and herbal remedies. Tell your doctor and pharmacist if you have any medical conditions or allergies to any medicine or food, or if you are or . Keep a list of all your medicines. Use the sample to the right as a guide for the type of information needed. 1075-6304 [facility], [address] [place] [address], [place] [address]. All rights reserved. This information is not intended as a substitute for professional medical care. Always follow your healthcare professional's instructions. documented in this encounter Progress Notes * Jasmina Taylor MD - 07/06/2024 5:50 PM EDT SUBJECTIVE: Amairani Khan is a 74 year old female. Chief Complaint Patient presents with Hospital Follow-Up Hospital Follow-Up Recent Admission: Patient was recently admitted to [facility] 06/28/24. The date of discharge was 06/29/24. Discharge report received and reviewed. HPI: Brief Clinical History Ms. Khan is a 74 year old female last seen in [facility] on 07/03/2024 by Sarah Church She has a h/o the following chronic conditions indicated on the problem list: Chronic Conditions Postoperative atrial fibrillation (HCC) Admitted to [facility] 06/28/24-06/29/24 with chest pain. Patient had CABG x 3 in April 2024 complicated by postoperative atrial fibrillation and then she was admitted again in 06/06/24 with chest pain and foundto have PE. Was started on Eliquis. She went to the ED 06/28/24 with chest heaviness and was given aspirin and nitro in the ambulance and the chest heaviness resolved. Troponin was negative x 2. EKG negative for acute changes and ACS was ruled out. Her blood pressure had been running high at home as well. She was restarted on lisinopril 20 mg daily prior to discharge with improvement. She has takenall of her medications today except for her evening dose of metoprolol succinate 25 mg, which she is taking twice a day. Cardiology sent in nitro on 07/03/24, and she has been taking that when she gets the chest pressure and it helps. Blood pressure continues to run high. She has been getting episodes of chest heaviness off and on. She still has a little bit now. Her blood pressure at 4:45 today was 183/112. She did speak with covering engineering faculty member by phone on 07/02/24, who suggested that she could either increase the lisinopril to 40 mg or start HCTZ and potassium supplement versus watching BP further. She had just been started on lisinopril and it was noted her BP at the end of the hospital stay was good so it was felt thather blood pressure might stabilize with more time. However, all her readings from today were 150/100 or higher and she gets the chest pressure when it is high. Has home health coming out. Blood pressure has been a bit high when they have checked as well. Patient Active Problem List Diagnosis ADVANCE DIRECTIVE [...] fibrillation (HCC) History of basal cell carcinoma Chronic kidney disease, stage 3a (HCC) Acute pulmonary embolism without acute cor pulmonale (HCC) Current Outpatient Medications Medication Sig Dispense [...] by mouth at bedtime. 90 Tablet 0 traMADol HCl 50 MG Oral Tablet (Ultram) Take 0.5 Tablets by mouth every 6 hours as needed for Pain,Moderate. 10 Tablet 0 Levalbuterol Tartrate 45 MCG/ACT Inhalation Aerosol (Xopenex HFA) Inhale 2 Puffs by mouth every 4 hours as needed for Wheezing. 15 g 5 Metoprolol Succinate ER 25 MG Oral Tablet Extended Release 24 Hour (toPROL XL) Take 1 Tablet by mouth in the morning and 1 Tablet before bedtime. Eliquis 5 MG Oral Tablet Take 1 Tablet by mouth in the morning and 1 Tablet before bedtime. 30 Tablet 0 Apixaban 5 MG Oral Tablet (Eliquis) Take 1 Tablet by mouth in the morning and 1 Tablet before bedtime. 180 Tablet 0 Nitroglycerin 0.3 MG Sublingual Tablet Sublingual (Nitrostat) Place 1 Tablet under the tongue as needed for Pain, Chest. May repeat 3 times. If chest pain continues, call 911. 25 Tablet 11 Lisinopril 40 MG Oral Tablet Take 1 Tablet by mouth in the morning. 100 Tablet 1 Magnesium 200 MG Oral Tablet Take 1 Tablet by mouth in the morning. 100 Tablet 1 Citalopram Hydrobromide 10 MG Oral Tablet (CeleXA) Take 1 Tablet by mouth in the morning. (Patient not taking: Reported on 07/06/2024) 90 Tablet 3 No current facility-administered medications for this visit. Current and discharge medications have been reconciled. Review of patient's allergies indicates: Allergen Reactions Baclofen Vertigo/extreme dizziness Codeine "deathly sick" Levaquin [Levofloxacin] Nausea/vomiting Sulfa Antibiotics Rash Results for orders placed or performed in [...] 11.1 fL nRBCs 0 <=0 /100 WBCs BASIC METABOLIC PANEL Result Value Ref Range BUN 15 6 - 20 mg/dL CREATININE 0.9 0.5 - 1.0 mg/dL EGFR 67 >=60 mL/min SODIUM 141 135 - 146 mmol/L POTASSIUM 4.5 3.5 - 5.1 mmol/L CHLORIDE 103 98 - 107 mmol/L CO2 24 22 - 32 mmol/L ANION GAP 14 7 - 15 mmol/L GLUCOSE 98 70 - 120 mg/dL CALCIUM 9.8 8.4 - 10.2 mg/dL *Note: Due to a large number of results and/or encounters for the requested time period, some results have not been displayed. A complete set of results can be found in Results Review. OBJECTIVE: BP 148/94 | Pulse 81 | Temp 36.8 C (98.3 F) (Tympanic) | Wt 84.4 kg (186 lb) | SpO2 98% | BMI 31.43 kg/m | BSA 1.96 m Review Of Systems: Skin: pt denies, new or changing moles, pigmentation change, rash, scaling, itching, bruising, lumps or bumps, hair changes, nail changes Eyes: negative Ears/Nose/Throat: pt denies:, deafness, tinnitus, frequent URI's, sinus trouble Respiratory: pt denies:, cough, sputum, pneumonia or bronchitis, asthma, wheezing, and dyspnea on exertion Cardiovascular: +as per HPI. Having chest pressure currently Gastrointestinal: pt. denies:, abdominal pain, bloating or excess gas, dysphagia, nausea, blood in stool or black stools, constipation or change in bowel habits, diarrhea, +chronic heartburn Genitourinary: pt denies:, dysuria, and frequency Musculoskeletal: pt denies significant joint pain or stiffness Neurologic: pt denies:, headaches, syncope, and seizures Psychiatric: pt denies:, sleep disturbance, anxiety, nervousness, and depression Hematologic/Lymphatic/Immunologic: +PE Endocrine: pt denies:, thyroid disorder, cold intolerance, [...] auscultation Extremities: no edema, no clubbing, no cyanosis Neuro Exam: alert & oriented x 3 with fluent speech, no focal motor/sensory deficits ASSESSMENT: Hospital discharge follow-up (Primary) - DISCH MED RECON CUR MED LIS Chest heaviness--EKG unchanged compared to one during admission to [facility] 06/28/24- 06/29/24 where ACS wasruled out. - EKG; Future; Expected date: 07/06/2024 S/P CABG x 3--healing well. HTN, goal below 140/90--uncontrolled. Increase lisinopril to 40 mg as this was one of the suggestions cardiology recommended if BP remained elevated. BP has been quite elevated today and causing chest pressure. - Lisinopril 40 MG Oral Tablet; Take 1 Tablet by mouth in the morning. Postoperative atrial fibrillation (HCC) - Magnesium 200 MG Oral Tablet; Take 1 Tablet by mouth in the morning. 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 Gastroesophageal reflux disease without esophagitis Acute pulmonary embolism without acute cor pulmonale, unspecified pulmonary embolism type (HCC)--continue Eliquis. PLAN: Continue present medication(s): Change dose of medication(s) to Increase lisinopril to 40 mg daily. Blood pressure has been high over the last week and higher over the last few days. She tends to have chest pain/pressure when it ishigh. Renew prescriptions: magnesium 200 mg daily. Studies ordered: EKG done in office today shows normal sinus rhythm with nonspecific T wave abnormality that was compared with EKG from [facility] while admitted and appears similar. Patient education: Discussed blood pressure monitoring and control. Follow-up with cardiology as scheduled. Has been taking nitro for the chest pressure with relief. If chest pain worsens or changes,would recommend return to ED. Remains on Eliquis for PE that was diagnosed in May when she was admitted with chest pain. Follow up as scheduled. I spent a total of 40-54 minutes (exact time 48 mins) minutes on the date of service in preparation, delivery, and documentation of the care provided to Amairani Khan excluding any time spent in performance of separately billed services. Jasmina Taylor MD documented in this encounter Nursing Notes * Suzanne Sunshine LPN - 07/06/2024 5:29 PM EDT Hospital follow up Blood pressure has been running higher off and on since coming out of the hospital Just doesn't feel good at times still Told chest would feel different because of healing from heart surgery, can take 12 weeks or more. Before feels "back to normal" documented in this encounter Plan of Treatment Upcoming Encounters Date Type Department Care Team (Late st Contact Info) Description 07/16/2024 2:00 PM EDT [place] Visit [place] at [facility] [address] [phone] Sarah Manuel, [place] [address] [place] [address] 08/05/2024 10:00 AM EDT Home Visit [place] at [facility] [address] [address] Sarah Manuel, TAWANNA [address] [place] [address] 08/19/2024 3:00 PM EDT Office Visit Cardiology, [facility] [address] [place] [address] German Laboy DO [address] [facility] [place] [address] 08/25/2024 1:40 PM EST Office Visit Family Medicine [address] [place] [phone] Jasmina Taylor MD [address] [place] [address] [place] [id number] 10/05/2024 2:00 PM EST Office Visit Gastroenterology, [facility] [address] [facility] [place] [address] Martha Porter CRNP [address] [facility] [place] [address] 01/20/2025 3:20 PM EDT Office Visit Dermatology [address] [place] [address] Carolynn Dailey PA-C [address] [place] [address] [place] [address] 06/18/2025 10:00 AM EDT Nurse Only Ancillary [address] [place] [address] [place], Nurse Annual Wellness [address] [place] [address] [place] [id number] Scheduled Orders Name Type Priority Associated Diagnoses Orde r Schedule EKG EKG Routine Chest heaviness Expected: 07/06/2024 (Approximate), Expi res: 08/05/2025 Scheduled Procedures Name Priority Associated Diagnoses Date/Ti me COLONOSCOPY FLEXIBLE PROXIMA L DIAGNOSTIC Recall Encounter for screening colonoscopy Health Maintenance Due Date Last Done Comments Sigmoidoscopy 1996 DTap/Tdap Vaccines (2 - Td or Tdap) 07/14/2018 07/14/2008 Fecal Occult Blood Test 09/16/2020 09/16/2019, 12/05 Cologuard 01/27/2021 01/27/2018 Albumin/Creatinine Ratio 12/11/2022 12/11/2021, 1212/2018 Mammogram 11/13/2024 11/13/2023, 10/21, 11/06/2022, Additional history exists GFR 12/18/2024 06/17/2024, 05/21, 06/07/2024, Additional history exists DXA Scan 02/27/2025 02/27/2022, 02/18, 01/21/2019, Additional history exists CKD PHOS USE SMARTSET 46254 06/08/202505/21, 03/14/2021, 09/22/2019 Adult Wellness Visit 06/17/2025 06/17/2024, 06/12/2023, 05/11/2022, Additional history exists CKD HGB USE SMARTSET 45618 06/17/202506/17, 06/07/2024, 05/20/2024, Additional history exists Depression Screening 06/17/2025 06/17/2024 Colonoscopy 03/15/2033 03/15/2023, 02/19, 08/20/2018, Additional history exists Colorectal Cancer Screening 03/15/2033 Pneumococcal Vaccine: 65+ Years Completed 01/22/2019, 11/27/2016, 11/09/2013 Zoster Vaccines Completed 05/16/2021, 02/19, 02/19/2013 COVID-19 Vaccine Discontinued 08/23/2023, 12/2022, 07/24/2022, Additional history exists Influenza Vaccine (FLU shot) Completed 07/04/2024, 07/06/2023, 07/07/2022, Additional history exists HPV (Gardasil) Vaccine Aged Out No lo nger eligible based on patient's age to complete this topic Hepatitis B Vaccine Aged Out No longe r eligible based on patient's age to complete this topic MENINGOCOCCAL (MENACTRA/MENVEO) Aged Out No longer eligible based on patient's age to complete this topic documented as of this encounter Medical Devices Implanted Type Area 911 Emergency Dispatcher Device Identifier Shelf Expiration Date Model / Serial / Lot Suture Steel 6 B&S19 M654g - [id number] Implanted:Qty: 7 on 05/15/2024 by Alfonso Jay MD at OR [facility] [place] N/A: Sternum JNJ : [employer] 08/20/2028 M654G / / TMMAST Marker Coronary - [id number] Implanted:Qty: 1 on 05/15/2024 by Alfonso Jay MD at OR [facility] [place] N/A: Aorta [employer] 04/19/2027 [facility] / / [id number] Description:attached to vein graft Marker Coronary - [id number] Implanted:Qty: 1 on 05/15/2024 by Alfonso Jay MD at OR [facility] [place] N/A: Aorta [employer] 03/20/2027 [facility] / / [id number] Description:attached to vein graft documented as of this encounter Visit Diagnoses Diagnosis Hospital discharge follow-up- Primary Other follow-up examination Chest heaviness Other chest pain S/P CABG x 3 Postsurgical aortocoronary bypass status HTN, goal below 140/90 Unspecified essential hypertension Postoperative atrial fibrillation (HCC) Cardiac complications 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 Care Teams Morning Caregiver Relationship Specialty Start Date End Date Jasmina Taylor MD [address] [place] [address] [place] [id number] PCP - General Family Medicine 05/07/24 documented as of this encounter
--- OUTSIDE RECORDS SUMMARY | 2024-07-07 20:07 | External Medical Summary | Summary of Care ---
Author Name Unknown Organization [facility] Address [address] [place] [facility] [place] [address] Phone [phone] Care Team Providers Care Release Specialist Name Role Phone Jasmina Taylor MD Primary Care Provide r Encounter Details Date Type Department Care Team (Late st Contact Info) Description 07/03/2024 12:30 PM EDT [facility] Visit [facility], [facility] 132 [facility] [place] [address] Sarah Manuel, TAWANNA 132 [facility] [place] [address] Allergies Active Allergy Reactions Criticality Noted Date [...] mRNA, LNP-s, No Pre serve, 2-Dose Series ([employer]) 08/22/2021,12/14/2020,11/23/2020 COVID-19, LNP-s, No Preserve , [place]-sucrose, Ages 12+ (Pfizer) 02/13/2022 COVID-19, MRNA-LNP, 23-24, P F, 30 MCG/0.3 mL, 12 YRS AND ABOVE, IM ([employer]-Comirnaty) 08/23/2023 Covid-19, Mrna, Lnp-s, Pf, B ivalent, 30 Mcg, IM, 12 yrs and above ([employer]) 07/24/2022 Pneumococcal Conjugate Vacc, 13 Valent (Prevnar) [...] Sign Reading Time Taken Comments Blood Pressure 122/82 07/03/2024 1:22 PM EDT Pulse 72 07/03/2024 1:22 PM EDT Temperature 36.8 C (98.3 F) 07/03/2024 1:22 PM ED T Respiratory Rate 18 07/03/2024 1:22 PM EDT Oxygen Saturation 97% 07/03/2024 1:22 PM EDT Inhaled Oxygen Concentration - - [...] of this encounter Progress Notes * Sarah Manuel, RN - 07/03/2024 12:35 PM EDT Current Concerns: Patient seen for follow up- YOLETTE#1 S/p [facility] stay related to chest pain- 06/28-06/29. Cardiac studies/labs wnl. Discharged home with Lisinopril 20mg daily. Since discharge has been taking BP. Diastolic still in 90's/ low 100's- Asymptomatic- denies headache, dizziness/ lightheadedness. T/E sent to [facility]. Significant past medical history- CAD, HTN, HLD, [...] to 5mg BID, Mag ox started daily. Reports feeling good- does have some pressure in chest more so in right versus left. Explained chest is still healing from surgery. Will be starting outpatient Cardiac rehab in two weeks in [place]. Will be discharged from home health services at that time. Does report feeling depressed. Discussed depression is common following cardiac surgery. Is open totrying low dose Celexa(has friend that takes medication). TT to Theron Hester PA-C- script for Celexa sent to [facility] pharmacy. VS wnl Lungs clear bilaterally Sob with moderate exertion No LE edema noted Voiding without difficulty Bowels wnl- per report Appetite good Taking fluids Physical Exam: Physical Exam Constitutional: Appearance: Normal appearance. Cardiovascular: [...] and Affect: Mood normal. Behavior: Behavior normal. Review of Systems: Review of Systems Constitutional: Negative. HENT: Negative. Respiratory: Negative. Cardiovascular: Negative. Gastrointestinal: Negative. Genitourinary: Negative. Musculoskeletal: Negative. Skin: Negative. Neurological: Negative. Hematological: Bruises/bleeds easily. Psychiatric/Behavioral: Negative. Care Plan Goal Progress: Patient will demonstrate optimal balance of rest/activity. (Progressing) Start: 07/03/24 Expected End: 09/01/24 Patient will maintain management & treatment regimen (Progressing) Start: 07/03/24 Expected End: 10/01/24 GS - Patient/caregiver will verbalize an understanding of correct usage, dose and schedule of depression medication self-administration (Progressing) Start: 07/03/24 Expected End: 09/01/24 Orders Placed: Plan Citalopram Hydrobromide 10 MG Oral Tablet (CeleXA) Medications Given: Care Gaps: documented in this encounter Plan of Treatment Upcoming Encounters Date Type Department Care Team (Late st Contact Info) Description 07/06/2024 5:40 PM EDT Office Visit Family Medicine [address] [place] [phone] Jasmina Taylor MD [address] [place] [address] [place] [address] 07/16/2024 2:00 PM EDT [facility], [facility] [address] [place] [address] Sarah Manuel, RN [address] [place] [address] 08/05/2024 10:00 AM EDT [facility], [facility] [address] [place] [address] Sarah Manuel, RN [address] [place] [address] 08/19/2024 3:00 PM EDT Office Visit Cardiology, [facility] [address] [place] [address] German Laboy DO [address] [place] [address] 08/25/2024 1:40 PM EST Office Visit Family Medicine [address] [place] [phone] Jasmnia Taylor MD [address] [place] [address] [place] [address] 10/05/2024 2:00 PM EST Office Visit Gastroenterology, [facility] [place] [address] Martha Porter CRNP [address] [place] [address] 01/20/2025 3:20 PM EDT Office Visit Dermatology [address] [place] [address] Carolynn Dailey PA-C [address] [place] [address] [place] [address] 06/18/2025 10:00 AM EDT Nurse Only Ancillary Amilcar Vann[address] [place] [address] [place], Nurse [address] [place] [address] Scheduled Procedures Name Priority Associated Diagnoses Date/Ti me COLONOSCOPY FLEXIBLE PROXIMA L DIAGNOSTIC Recall Encounter for screening colonoscopy Health Maintenance Due Date Last Done Comments Sigmoidoscopy 1996 DTap/Tdap Vaccines (2 - Td or Tdap) 07/14/2018 07/14/2008 Fecal Occult Blood Test 09/16/2020 09/16/2019, 12/05 Cologuard 01/27/2021 01/27/2018 Albumin/Creatinine Ratio 12/11/2022 12/11/2021, 1212/2018 Influenza Vaccine (FLU shot) (#1) 2024 07/06/2023, 07/07/2022, 06/29/2021, Additional history exists Mammogram 11/13/2024 11/13/2023, 10/21, 11/06/2022, Additional history exists GFR 12/18/2024 06/17/2024, 05/21, 06/07/2024, Additional history exists DXA Scan 02/27/2025 02/27/2022, 02/18, 01/21/2019, Additional history exists CKD PHOS USE SMARTSET 79508 06/08/202505/21, 03/14/2021, 09/22/2019 Adult Wellness Visit 06/17/2025 06/17/2024, 06/12/2023, 05/11/2022, Additional history exists CKD HGB USE SMARTSET 59714 06/17/202506/17, 06/07/2024, 05/20/2024, Additional history exists Depression [...] this encounter Medical Devices Implanted Type Area Medical Lab Director Device Identifier Shelf Expiration Date Model / Serial / Lot Suture Steel 6 B&S19 M654g - [id number] Implanted:Qty: 7 on 05/15/2024 by lAfonso Jay MD at OR [facility] N/A: Sternum JNJ : [employer] 08/20/2028 M654G / / TMMAST Marker Coronary - [id number] Implanted:Qty: 1 on 05/15/2024 by Alfonso Jay MD at OR [facility] N/A: Aorta [employer] 04/19/2027 [facility] / / [id number] Description:attached to vein graft Marker Coronary - [id number] Implanted:Qty: 1 on 05/15/2024 by Alfonso Jay MD at OR [facility] N/A: Aorta [employer] 03/20/2027 [facility] / / [id number] Description:attached to vein graft documented as of [...] and were consensually agreed upon. Care Teams Release Specialist Relationship Specialty Start Date End Date Jasmina Taylor MD [address] [place] [address] [place] [address] PCP - General Family Medicine 05/07/24 documented as of this encounter
--- OUTSIDE RECORDS SUMMARY | 2024-07-07 20:07 | External Medical Summary | Summary of Care ---
Author Name Unknown Organization [facility] Address [address] [place] [facility] [place] [facility] [place] [address] Phone [phone] Care Team Providers Care Plaster Machine Tender Name Role Phone Jasmina Taylor MD Primary Care Provide r Reason for Visit * Reason Onset Date Comments Follow Up 07/03/2024 Encounter Details Date Type Department Care Team (Late st Contact Info) Description 07/03/2024 Telephone [facility], [place] [facility] [address] [place] [address] Sarah Manuel, RN [address] [place] [address] Follow Up Allergies Active Allergy Reactions Criticality [...] mRNA, LNP-s, No Pre serve, 2-Dose Series ([employer]) 08/22/2021,12/14/2020,11/23/2020 COVID-19, LNP-s, No Preserve , [place]-sucrose, Ages 12+ (Pfizer) 02/13/2022 COVID-19, MRNA-LNP, 23-24, P F, 30 MCG/0.3 mL, 12 YRS AND ABOVE, IM ([employer]-Comirnaty) 08/23/2023 Covid-19, Mrna, Lnp-s, Pf, B ivalent, [...] encounter Miscellaneous Notes * Telephone Encounter - Sarah Manuel RN - 07/03/2024 1:[address] Laboy Patient discharged from [facility] r/t chest pain. Does continue with some [...] 5:40 PM EDT Office Visit Family Medicine [address] [place] [phone] Jasmina Taylor MD [address] [place] [address] [place] [address] 08/05/2024 10:00 AM EDT Home Visit [facility] 132 [place] [address] Sarah Manuel RN 132 [place] [address] 08/19/2024 3:00 PM EDT Office Visit Cardiology, [facility] 132 [place] [address] German Laboy DO 132 [place] [address] 08/25/2024 1:40 PM EST Office Visit Family Medicine [address] [place] [phone] Jasmina Taylor MD [address] [place] [address] [place] [address] 10/05/2024 2:00 PM EST Office Visit Gastroenterology, [facility] [address] [place] [address] Martha Porter CRNP [address] [place] [address] 01/20/2025 3:20 PM EDT Office Visit Dermatology [address] [place] [address] Carolynn Dailey PA-C [address] [place] [address] [place] [address] 06/18/2025 10:00 AM EDT Nurse Only Ancillary [address] [place] [address] [place], Nurse Annual [address] [place] [address] Scheduled Procedures Name Priority Associated Diagnoses Date/Ti me COLONOSCOPY FLEXIBLE PROXIMA L DIAGNOSTIC Recall Encounter for screening colonoscopy Health Maintenance Due Date Last Done Comments Sigmoidoscopy 1996 DTap/Tdap Vaccines (2 - Td or Tdap) 07/14/2018 07/14/2008 Fecal Occult Blood Test 09/16/2020 09/16/2019, 12/05 Cologuard 01/27/2021 01/27/2018 Albumin/Creatinine Ratio 12/11/2022 12/11/2021, 12/0 12/2018 Influenza Vaccine (FLU shot) (#1) 2024 07/06/2023, 07/07/2022, 06/29/2021, Additional history exists Mammogram 11/13/2024 11/13/2023, 10/21, 11/06/2022, Additional history exists GFR 12/18/2024 06/17/2024, 05/21, 06/07/2024, Additional history exists DXA Scan 02/27/2025 02/27/2022, 02/18, 01/21/2019, Additional history exists CKD PHOS USE SMARTSET 67161 06/08/202505/21, 03/14/2021, 09/22/2019 Adult Wellness Visit 06/17/2025 06/17/2024, 06/12/2023, 05/11/2022, Additional history exists CKD HGB USE SMARTSET 91937 06/17/202506/17, 06/07/2024, 05/20/2024, Additional history exists Depression [...] this encounter Medical Devices Implanted Type Area Asphalt Raker Device Identifier Shelf Expiration Date Model / Serial / Lot Suture Steel 6 B&S19 M654g - [id number] Implanted:Qty: 7 on 05/15/2024 by Alfonso Jay MD at OR [facility] N/A: Sternum JNJ : [employer] 08/20/2028 M654G / / TMMAST Marker Coronary - [id number] Implanted:Qty: 1 on 05/15/2024 by Alfonso Jya MD at OR [facility] N/A: Aorta [employer] 04/19/2027 [facility] / / [id number] Description:attached to vein graft Marker Coronary - [id number] Implanted:Qty: 1 on 05/15/2024 by Alfonso Jay MD at OR [facility] N/A: Aorta [employer] 03/20/2027 [facility] / / [id number] Description:attached to vein graft documented as of [...] and were consensually agreed upon. Care Teams Plaster Machine Tender Relationship Specialty Start Date End Date Jasmina Taylor MD [address] [place] [address] [place] [address] PCP - General Family Medicine 05/07/24 documented as of this encounter
--- OUTSIDE RECORDS SUMMARY | 2024-07-07 20:07 | External Medical Summary | Summary of Care ---
Author Name Unknown Organization [facility] Address [address] [place] [address] Phone [phone] Care Team Providers Care Chief Of Party Name Role Phone Jasmina Taylor MD Primary Care Provide r Reason for Visit * Reason Onset Date Comments Home Health 07/01/2024 Encounter Details Date Type Department Care Team (Late st Contact Info) Description 07/01/2024 Telephone Family Medicine [address] [phone] Jasmina Taylor MD [address] [place] [address] [place] [address] Home Health Allergies Active [...] mRNA, LNP-s, No Pre serve, 2-Dose Series ([employer]) 08/22/2021,12/14/2020,11/23/2020 COVID-19, LNP-s, No Preserve , [place]-sucrose, Ages 12+ ([employer]) 02/13/2022 COVID-19, MRNA-LNP, 23-24, P F, 30 MCG/0.3 mL, 12 YRS AND ABOVE, IM ([employer] [facility]) 08/23/2023 Covid-19, Mrna, Lnp-s, Pf, B ivalent, 30 Mcg, IM, 12 yrs and above ([employer]) 07/24/2022 Pneumococcal Conjugate Vacc, 13 Valent (Prevnar) [...] Encounter - Cody Daugherty DO - 07/03/2024 4:22 PM EDT Spoke to patient on the phone personally in coverage of Dr. Laboy. Patient with concerns about blood pressure as noted in separate encounter, she really did not describe any chest discomfort. 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 Cody Daugherty DO * Telephone Encounter - Corinna Lubin CMA - 07/02/2024 4:16 PM EDT fyi * Telephone Encounter - Jasmina Taylor MD - 07/01/2024 3:38 PM EDT Would recommend if the chest pressure persists or worsens that she returns to ED. Would also like cardiology to be made aware to see if they have further advice. * Telephone Encounter - Amee Davenport LPN - 07/01/2024 3:02 PM EDT I spoke with Dr. Taylor- she recommends sending this to cardiology also. * Telephone Encounter - Tamica Lou LPN - 07/01/2024 2:44 PM EDT Resumption of Care Order Request: Valerie STACY, Calling from: [facility] Paieg Patient was Admitted to: [facility], for: chest Pain, hypertension from 06/27 to 06/29 Patient will be resuming: Usp Last Office Visit: 05/25/2024 (in office), Visit date not found (telemedicine) Has patient been scheduled or seen in the office for a follow up visit: Yes- on07/06 Advised that orders will be signed by Jasmina Taylor MD and to fax to the office for signature. Patient was Started on Lisinopril at the Hospital, she has only taken for about 3-4 days. She independently was taking her BP today: Mornin/96 Lunch: 149/96 lunch While Valerie was there it was: 146/94 Patient went in the hospital with chest pain, she stated that it was more pressure than pain; This pressure start again this morning that is what prompted her to take her BP's. She did have heart surgery, she is not sure if it is an odd sensation to the healing process or if it's an actual complication. She stated that the pressure is less than when she Called the ambulance on Saturday. The Ambulance gave her an Aspirin and Nitro on Saturday in route to the hospital. Valerie asked patient if she was ever prescribed nitro at home, she stated that she has never been prescribed the medication in the past. Asking if this is something that would be worth prescribing. Pharmacy selected. She is sitting comfortably, participating with her visit, she does not feel that it is an emergent issue she is just worried about this pressure and not knowing if it is something to worry about Please advise Spoke with Amee in Office, she will have aJsmina Taylor MD review message. documented in this encounter Plan of Treatment Upcoming Encounters Date Type Department Care Team (Late st Contact Info) Description 07/06/2024 5:40 PM EDT Office Visit Family Medicine [address] [place] [phone] Jasmina Taylor MD [address] [place] [address] [place] [address] 07/16/2024 2:00 PM EDT [facility] Visit [facility] [address] [place] [address] Sarah Manuel RN [address] [place] [address] 08/05/2024 10:00 AM EDT [facility] Visit [facility] [address] [place] [address] Sarah Manuel RN 132 [facility] [place] [address] 08/19/2024 3:00 PM EDT Office Visit Cardiology, [facility] [address] [place] [address] German Laboy DO [address] [place] [address] 08/25/2024 1:40 PM EST Office Visit Family Medicine [address] [place] [phone] Jasmina Taylor MD [address] [place] [address] [place] [address] 10/05/2024 2:00 PM EST Office Visit Gastroenterology, [facility] [address] [place] [address] Martha Porter CRNP [address] [place] [address] 01/20/2025 3:20 PM EDT Office Visit Dermatology [address] [place] [address] Carolynn Dailey PA-C [address] [place] [address] [place] [address] 06/18/2025 10:00 AM EDT Nurse Only Ancillary [address] [place] [address] [place], Nurse Annual Wellness [address] [place] [address] [place] [address] Scheduled Procedures Name Priority Associated Diagnoses Date/Ti [...] Additional history exists CKD PHOS USE SMARTSET 67721 06/08/202505/21, 03/14/2021, 09/22/2019 Adult Wellness Visit 06/17/2025 06/17/2024, 06/12/2023, 05/11/2022, Additional history exists CKD HGB USE SMARTSET 79750 06/17/202506/17, 06/07/2024, 05/20/2024, Additional history exists Depression [...] this encounter Medical Devices Implanted Type Area Clinical Account Manager Device Identifier Shelf Expiration Date Model / Serial / Lot Suture Steel 6 B&S19 M654g - [id number] Implanted:Qty: 7 on 05/15/2024 by Alfonso Jay MD at OR [facility] N/A: Sternum JNJ : [employer] 08/20/2028 M654G / / TMMAST Marker Coronary - [id number] Implanted:Qty: 1 on 05/15/2024 by Alfonso Jay MD at OR [facility] N/A: Aorta [employer] 04/19/2027 [facility] / / [id number] Description:attached to vein graft Marker Coronary - [id number] Implanted:Qty: 1 on 05/15/2024 by Alfonso Jay MD at OR [facility] N/A: Aorta [employer] 03/20/2027 [facility] / / [id number] Description:attached to vein graft documented as of [...] and were consensually agreed upon. Care Teams Chief Of Party Relationship Specialty Start Date End Date Jasmina Taylor MD [address] [place] [address] [place] [phone] PCP - General Family Medicine 05/07/24 documented as of this encounter
--- OUTSIDE RECORDS SUMMARY | 2024-07-07 20:08 | External Medical Summary | Summary of Care ---
Author Name Unknown Organization [facility] Address [address] [facility] [place] [address] Phone [phone] Care Team Providers Care Territory Account Executive Name Role Phone Jasmina Taylor MD Primary Care Provide r Reason for Visit * Reason Onset Date Comments [facility]: Maintenance 06/28/2024 Encounter Details Date Type Department Care Team (Late st Contact Info) Description 06/28/2024 10:15 AM EDT Scheduled Telephone [facility], [facility] 132 [facility] [place] [address] [facility], Nurse [facility] 132 [facility] [place] [address] Allergies Active Allergy Reactions Criticality Noted Date Comments Baclofen 04/26/2022 Vertigo/extreme dizziness Codeine 02/18/2013 "deathly sick" Levofloxacin Nausea/vomiting 08/12/2018 Sulfa Antibiotics 08/25/2001 Rash documented as of this encounter (statuses as of 06/29/2024) Medications Medication Sig Dispensed Refills Start Date [...] as of this encounter (statuses as of 06/29/2024) Active Problems Problem Noted Date Diagnosed Date [...] as of this encounter (statuses as of 06/29/2024) Resolved Problems Problem Noted Date Diagnosed Date [...] as of this encounter (statuses as of 06/29/2024) Immunizations Name Administration Dates Next Due COVID-19 mRNA, LNP-s, No Pre serve, 2-Dose Series ([employer]) 08/22/2021,12/14/2020,11/23/2020 COVID-19, LNP-s, No Preserve , [place]-sucrose, Ages 12+ (Pfizer) 02/13/2022 COVID-19, MRNA-LNP, 23-24, P F, 30 MCG/0.3 mL, 12 YRS AND ABOVE, IM ([employer]-Comirnaty) 08/23/2023 Covid-19, Mrna, Lnp-s, Pf, B ivalent, [...] encounter Miscellaneous Notes * Telephone Encounter - Rin Cabrera LPN - 06/29/2024 9:28 AM EDT Added to [facility] hospital list to follow * Telephone Encounter - Louias Rock RN - 06/28/2024 10:02 AM EDT Called [facility] and confirmed that patient has been admitted. documented in this encounter Plan of Treatment Upcoming Encounters Date Type Department Care Team (Late st Contact Info) Description 08/05/2024 10:00 AM EDT Home Visit [facility] [address] [place] [address] Sarah Manuel, RN [address] [place] [address] 08/19/2024 3:00 PM EDT Office Visit Cardiology, [facility] [place] [address] German Laboy DO [address] [place] [address] 08/25/2024 1:40 PM EST Office Visit Family Medicine [address] [place] [phone] Jasmina Taylor MD [address] [place] [address] [place] [address] 10/05/2024 2:00 PM EST Office Visit Gastroenterology, [facility] [place] [address] Martha Porter CRNP 132 [facility] [place] [address] 01/20/2025 3:20 PM EDT Office Visit Dermatology [address] [place] [address] Carolynn Dailey PA-C [address] [place] [address] [place] [address] 06/18/2025 10:00 AM EDT Nurse Only Ancillary [address] [place] [address] [place], Nurse [address] [place] [address] Scheduled Procedures Name Priority Associated Diagnoses Date/Ti [...] Additional history exists CKD PHOS USE SMARTSET 39131 06/08/202505/21, 03/14/2021, 09/22/2019 Adult Wellness Visit 06/17/2025 06/17/2024, 06/12/2023, 05/11/2022, Additional history exists CKD HGB USE SMARTSET 41734 06/17/202506/17, 06/07/2024, 05/20/2024, Additional history exists Depression [...] this encounter Medical Devices Implanted Type Area Supervisor Screen Making Device Identifier Shelf Expiration Date Model / Serial / Lot Suture Steel 6 B&S19 M654g - [id number] Implanted:Qty: 7 on 05/15/2024 by Alfonso Jay MD [place] [facility] [place]/A: Sternum JNJ : [employer] 08/20/2028 M654G / / TMMAST Marker Coronary - [id number] Implanted:Qty: 1 on 05/15/2024 by Alfonso Jay MD [place] [facility] [place]/A: Aorta [employer] 04/19/2027 [facility] / / [id number] Description:attached to vein graft Marker Coronary - [id number] Implanted:Qty: 1 on 05/15/2024 by Alfonso Jay MD at OR [facility] N/A: Aorta [employer] 03/20/2027 [facility] / / [id number] Description:attached to vein graft documented as of [...] and were consensually agreed upon. Care Teams Territory Account Executive Relationship Specialty Start Date End Date Jasmina Taylor MD [address] [place] [address] [place] [address] PCP - General Family Medicine 05/07/24 documented as of this encounter
--- OUTSIDE RECORDS SUMMARY | 2024-07-07 20:08 | External Medical Summary | Summary of Care ---
Author Name Unknown Organization [facility] Address [address] [facility] [facility] [address] Phone [phone] Care Team Providers Care Typo Machine Operator Name Role Phone Jasmina Taylor MD Primary Care Provide r Reason for Referral * Evaluate & Treat - Unlimited Visits (Within 10 days (routine)) - Authorized Specialty Diagnoses / Procedures Referred By Sabiha t Referred To Contact CARDIAC REHAB / Cardiology Diagnoses Hospital discharge follow-up S/P CABG x 3 Nurys Damon CRNP [address] [place] [address] Referral ID Status Reason Start Date Expiration Date Visits Requested Visits Authorized [id number] Authorized Specialty Services Required 06/29/2024 999 999 Question Answer Referral Priority Within 10 days (routine) Where should this appointment be scheduled? [facility]iac Rehab Only Cardiac Rehab Location: Non-[facility] (Specify in Comments) - [facility] Identify Cardiac Risk Low to Moderate Risk Comments Recent CABG, post op A-fib (short course), post discharge PE (on Eliquis), post op admissions for PE, Palpitations, and hypertensive urgency (needs dietary reinforcement) Reason for Visit * Reason Onset Date Comments Information 06/29/2024 Encounter Details Date Type Department Care Team (Late st Contact Info) Description 06/29/2024 Telephone Cardiology, [facility] [address] [place] [address] Nurys Damon CRNP [address] [place] [address] Information Allergies Active Allergy Reactions Criticality Noted Date Comments Baclofen 04/26/2022 Vertigo/extreme dizziness Codeine 02/18/2013 "deathly sick" Levofloxacin Nausea/vomiting 08/12/2018 Sulfa Antibiotics 08/25/2001 Rash documented as of this encounter (statuses as of 06/30/2024) Medications Medication Sig Dispensed Refills Start Date [...] as of this encounter (statuses as of 06/30/2024) Active Problems Problem Noted Date Diagnosed Date [...] as of this encounter (statuses as of 06/30/2024) Resolved Problems Problem Noted Date Diagnosed Date Resolved Date ACS (acute coronary syndrome) 05/14/2024 05/25/2024 Hypertensive urgency 05/14/2024 024 Multinodular goiter 08/13/2023 08/14/20 Nephrolithiasis 03/14/2021 08/13/2023 [...] as of this encounter (statuses as of 06/30/2024) Immunizations Name Administration Dates Next Due COVID-19 mRNA, LNP-s, No Pre serve, 2-Dose Series (AFAR) 08/22/2021,12/14/2020,11/23/2020 COVID-19, LNP-s, No Preserve , Clive-sucrose, Ages 12+ (AFAR) 02/13/2022 COVID-19, MRNA-LNP, 23-24, P F, 30 MCG/0.3 mL, 12 YRS AND ABOVE, IM ([employer]) 08/23/2023 Covid-19, Mrna, Lnp-s, Pf, B [...] encounter Miscellaneous Notes * Telephone Encounter - Marva Cordova LPN - 06/30/2024 3:45 PM EDT [facility] does have cardic rehab. Orders and chart sent. * Telephone Encounter - Nurys Damon CRNP - 06/29/2024 11:47 AM EDT Hospital discharge follow up. Several recurrent admission s/p CABG. Most recent at [facility] 06/27-06/29/24 for Hypertensive urgency afterconsuming [employer]. FYI to Scheduling: Patient had an appt scheduled for this week, but cancelled it. At this time her next scheduled appt is 08/19/2024. Please keep that appt as scheduled. Advised patient of this as well. May offer sooner appt if there is a cancellation. Patient was also advised that she is to have outpatient non- fasting blood work at the end of next week. Orders placed. Nursing Staff: I will be placing an order for cardiac rehab. Patient wants to attend in person Cardiac rehab at [facility]. Do we know if they really have a program? If so, This would be an acceptable option per myself and Dr. Oshea. Referral has been placed. She needs to get started. Nurys Chaidez documented in this encounter Plan of Treatment Upcoming Encounters Date Type Department Care Team (Late st Contact Info) Description 07/06/2024 5:40 PM EDT Office Visit [address] [phone] Jasmina Taylor MD [address] [place] [address] [place] [address] 08/05/2024 10:00 AM EDT [facility] [place] [address] Sarah Manuel, TAWANNA 132 [facility] [place] [address] 08/19/2024 3:00 PM EDT Office Visit Cardiology, [facility] 132 [facility] [place] [address] German Laboy DO 132 [facility] [place] [address] 08/25/2024 1:40 PM EST Office Visit Family Medicine [address] [place] [phone] Jasmina Taylor MD [address] [place] [address] [place] [address] 10/05/2024 2:00 PM EST Office Visit Gastroenterology, [facility] 132 [facility] [place] [address] Martha Porter CRNP 132 [facility] [place] [address] 01/20/2025 3:20 PM EDT Office Visit Dermatology [address] [place] [address] Carolynn Dailey PA-C [address] [place] [address] [place] [address] 06/18/2025 10:00 AM EDT Nurse Only Ancillary [address] [place] [address] [place], Nurse Annual Wellness [address] [place] [address] [place] [address] Scheduled Orders Name Type Priority Associated Diagnoses Orde r Schedule BASIC METABOLIC PANEL Lab Routine Hospital discharge follow-up Expected: 07/08/2024, Expires: 06/29/2025 Scheduled Procedures Name Priority Associated Diagnoses Date/Ti me COLONOSCOPY FLEXIBLE PROXIMA L DIAGNOSTIC Recall Encounter for screening colonoscopy Scheduled Referrals Name Type Priority Associated Diagnoses Orde r Schedule CARDIAC REHAB REFERRAL OP Referral Within 10 days (routine) Hospital discharge follow-up S/P CABG x 3 Ordered: 06/29/2024 Health Maintenance Due Date Last Done Comments [...] Additional history exists CKD PHOS USE SMARTSET 95799 06/08/202505/21, 03/14/2021, 09/22/2019 Adult Wellness Visit 06/17/2025 06/17/2024, 06/12/2023, 05/11/2022, Additional history exists CKD HGB USE SMARTSET 45515 06/17/202506/17, 06/07/2024, 05/20/2024, Additional history exists Depression [...] this encounter Medical Devices Implanted Type Area Academic Success Coordinator Device Identifier Shelf Expiration Date Model / Serial / Lot Suture Steel 6 B&S19 M654g - [id number] Implanted:Qty: 7 on 05/15/2024 by Alfonso Jay MD at OR [facility] N/A: Sternum JNJ : [employer] 08/20/2028 M654G / / TMMAST Marker Coronary - [id number] Implanted:Qty: 1 on 05/15/2024 by Alfonso Jay MD at OR [facility] N/A: Aorta [employer] 04/19/2027 [facility] / / [id number] Description:attached to vein graft Marker Coronary - [id number] Implanted:Qty: 1 on 05/15/2024 by Alfonso Jay MD at OR [facility] N/A: Aorta [employer] 03/20/2027 [facility] / / [id number] Description:attached to vein graft documented as of this encounter Visit Diagnoses Diagnosis Hospital discharge follow-up- Primary Other follow-up examination S/P CABG x 3 Postsurgical aortocoronary bypass status documented in this [...] and were consensually agreed upon. Care Teams Typo Machine Operator Relationship Specialty Start Date End Date Jasmina Taylor MD [address] [place] [address] [place] [address] PCP - General Family Medicine 05/07/24 documented as of this encounter
--- OUTSIDE RECORDS SUMMARY | 2024-07-07 20:08 | External Medical Summary | Summary of Care ---
Author Name Unknown Organization [facility] Address [address] [place] [facility] [place] [place] [address] Phone [phone] Care Team Providers Care Warper Creeler Name Role Phone Jasmina Taylor MD Primary Care Provide r Reason for Visit * Reason Onset Date Comments [facility]: Maintenance 06/28/2024 Encounter Details Date Type Department Care Team (Late st Contact Info) Description 06/28/2024 10:15 AM EDT Scheduled Telephone [facility], [facility] 132 [facility] [place] [address] [facility], [facility] 132 [facility] [place] [address] Allergies Active Allergy Reactions Criticality Noted Date [...] mRNA, LNP-s, No Pre serve, 2-Dose Series ([employer]) 08/22/2021,12/14/2020,11/23/2020 COVID-19, LNP-s, No Preserve , Clive-sucrose, Ages 12+ (Pfizer) 02/13/2022 COVID-19, MRNA-LNP, 23-24, P F, 30 MCG/0.3 mL, 12 YRS AND ABOVE, IM ([employer]) 08/23/2023 Covid-19, Mrna, Lnp-s, Pf, B ivalent, [...] 06/28/2024 10:02 AM EDT Called [facility] and confirmed that patient has been admitted. documented in this encounter Plan of Treatment Upcoming Encounters Date Type Department Care Team (Late st Contact Info) Description 08/05/2024 10:00 AM EDT Home Visit [facility] at [address] [place] [address] Sarah Manuel, TAWANNA [address] [place] [address] 08/19/2024 3:00 PM EDT Office Visit Cardiology, [facility] [address] [place] [address] German Laboy DO [address] [place] [address] 08/25/2024 1:40 PM EST Office Visit Family Medicine [address] [place] [phone] Jasmina Taylor MD [address] [place] [address] [place] [address] 10/05/2024 2:00 PM EST Office Visit [facility]astroenterology, [facility] [place] [address] Martha Porter CRNP [facility] [place] [address] 01/20/2025 3:20 PM EDT Office Visit Dermatology [address] [place] [address] Carolynn Dailey PA-C [address] [place] [address] [place] [address] 06/18/2025 10:00 AM EDT Nurse Only Ancillary [address] [place] [address] [place], Nurse Annual Wellness [address] [place] [address] [place] [address] Scheduled Procedures Name Priority Associated Diagnoses Date/Ti [...] Additional history exists CKD PHOS USE SMARTSET 31569 06/08/202505/21, 03/14/2021, 09/22/2019 Adult Wellness Visit 06/17/2025 06/17/2024, 06/12/2023, 05/11/2022, Additional history exists CKD HGB USE SMARTSET 32286 06/17/202506/17, 06/07/2024, 05/20/2024, Additional history exists Depression [...] this encounter Medical Devices Implanted Type Area Career Consultant Device Identifier Shelf Expiration Date Model / Serial / Lot Suture Steel 6 B&S19 M654g - [id number] Implanted:Qty: 7 on 05/15/2024 by Alfonso Jay MD at OR [facility] N/A: Sternum JNJ : [employer] 08/20/2028 M654G / / TMMAST Marker Coronary - [id number] Implanted:Qty: 1 on 05/15/2024 by Alfonso Jay MD at OR [facility] N/A: Aorta [employer] 04/19/[address] [facility] / / [id number] Description:attached to vein graft Marker Coronary - [id number] Implanted:Qty: 1 on 05/15/2024 by Alfonso Jay MD at OR [facility] N/A: Aorta [employer] 03/20/[address] [facility] / / [id number] Description:attached to vein graft documented as of [...] and were consensually agreed upon. Care Teams Warper Creeler Relationship Specialty Start Date End Date Jasmina Taylor MD [address] [place] [address] [place] [address] PCP - General Family Medicine 05/07/24 documented as of this encounter
--- OUTSIDE RECORDS SUMMARY | 2024-07-07 20:08 | External Medical Summary | Summary of Care ---
Author Name Unknown Organization [facility] Address [address] [place] [facility] [place] [address] Phone [phone] Care Team Providers Care Glue Sprayer Name Role Phone Jasmina Taylor MD Primary Care Provide r Reason for Visit * Reason Onset Date Comments [facility]: Maintenance 07/02/2024 Encounter Details Date Type Department Care Team (Late st Contact Info) Description 07/02/2024 11:30 AM EDT Scheduled Telephone [facility], [facility] [address] [place] [address] Coordinator, [facility] [address] [place] [address] Allergies Active Allergy Reactions Criticality Noted Date Comments Baclofen 04/26/2022 Vertigo/extreme dizziness Codeine 02/18/2013 "deathly sick" Levofloxacin Nausea/vomiting 08/12/2018 Sulfa Antibiotics 08/25/2001 Rash documented as of this encounter (statuses as of 07/02/2024) Medications Medication Sig Dispensed Refills Start Date [...] call 911. 25 Tablet 11 07/02/2024 Active documented as of this encounter (statuses as of 07/02/2024) Active Problems Problem Noted Date Diagnosed Date [...] as of this encounter (statuses as of 07/02/2024) Resolved Problems Problem Noted Date Diagnosed Date [...] as of this encounter (statuses as of 07/02/2024) Immunizations Name Administration Dates Next Due COVID-19 mRNA, LNP-s, No Pre serve, 2-Dose Series (MDconnectME) 08/22/2021,12/14/2020,11/23/2020 COVID-19, LNP-s, No Preserve , Clive-sucrose, [...] No 06/17/2024 Does the household have a inscription house health centerlar source of income? (Household - for [...] encounter Miscellaneous Notes * Telephone Encounter - Juanita Pleitez RN - 07/02/2024 12:20 PM EDT Patient made aware of RX sent to pharmacy and tomorrow PADMINI Marinelli Registered Nurse Navigator Triage [facility] * Telephone Encounter - Roberto Vidal MD - 07/02/2024 11:45 AM EDT Recommendations: Wrote for sublingual nitro to pharmacy. Tomorrow's appointment can help guide antihypertensive therapy No orders of the defined types were placed in this encounter. E * Telephone Encounter - Juanita Pleitez RN - 07/02/2024 10:49 AM EDT [facility] Telephonic Nurse Follow-Up Call [facility] Subprogram: Focused Care Management (3-9 months) Follow Up Call Type: Routine follow up call / Status Check Acute issue requiring follow-up call: Other: Hospital follow up call Objective: 06/25/2024 10:57 AM 06/24/2024 12:34 PM 06/18/2024 1:30 PM 06/17/2024 9:17 AM 06/16/2024 1:16 PM VITALS ACROSS ENCOUNTERS BP 118/80 120/80 122/78 124/78 122/84 Pulse 68 76 80 87 80 Weight 82 kg 81.6 kg 81.9 kg BMI 30.57 30.98 BMI 30.55 kg/m2 30.9 kg/m2 31 kg/m2 Remote Patient Monitoring: NONE Oxygen Needs: NO supplemental oxygen needs identified DME Needs: NO DME needs identified Medications: New medication(s) added: Lisinopril 20 mg daily Subjective: Condition Status: Improvement in symptoms but not at baseline Current Concerns: Spoke with Xin, reports coming home from hospital on Saturday, feels better being home. Denies headache, no SOB, no N/V/D, yesterday she started with chest pressure, still has today but has decreased since yesterday. Does not have nitro prescribed. Started taking Lisinopril 20mg daily 3 days ago. BPstill reading high, with her auto cuff was 169/107-80. No CHW available today to do VS check, has [facility] RNCM HV tomorrow Disposition: Routed to [facility] and/or [facility] Care Team for further advice and RNCM visit scheduled Future Visits Scheduled: Future Appointments-next 60 days Date/Time Provider Specialty Dept Phone 07/02/2024 11:30 AM Coordinator, Shama King [facility] [phone] 07/03/2024 12:30 PM Sarah Manuel RN [facility] [phone] 07/06/2024 5:40 PM (Arrive by 5:25 PM) Jasmina Taylor MD Family Medicine [phone] 08/05/2024 10:00 AM Sarah Manuel RN [facility] [phone] 08/19/2024 3:00 PM (Arrive by 2:45 PM) German Laboy, Cardiology [phone] 08/25/2024 1:40 PM (Arrive by 1:25 PM) Jasmina Taylor MD Family Medicine [phone] 10/05/2024 2:00 PM (Arrive by 1:45 PM) Martha Porter CRNP Gastroenterology [phone] 01/20/2025 3:20 PM (Arrive by 3:05 PM) Carolynn Dailey PA-C Dermatology [phone] 06/18/2025 10:00 AM [place] Nurse Annual Wellness Ancillary [phone] Juanita Pleitez RN documented in this encounter Plan of Treatment Upcoming Encounters Date Type Department Care Team (Late st Contact Info) Description 07/03/2024 12:30 PM EDT Home Visit [facility], [facility] 132 [facility] [place] [address] Sarah Manuel RN 132 [facility] [place] [address] 07/06/2024 5:40 PM EDT Office Visit Family [address] [phone] Jasmina Taylor MD [address] [place] [address] [place] [address] 08/05/2024 10:00 AM EDT [facility] [place] [address] [place] [address] Sarah Manuel, TAWANNA [address] [place] [address] 08/19/2024 3:00 PM EDT Office Visit Cardiology, [facility] [address] [place] [address] German Laboy DO [address] [place] [address] 08/25/2024 1:40 PM EST Office Visit Family [address] [phone] Jasmina Taylor MD [address] [place] [address] [place] [address] 10/05/2024 2:00 PM EST Office Visit Gastroenterology, [facility] [address] [place] [address] Martha Porter CRNP [address] [place] [address] 01/20/2025 3:20 PM EDT Office Visit Dermatology [address] [place] [address] Carolynn Dailey PA-C [address] [place] [address] [place] [address] 06/18/2025 10:00 AM EDT Nurse Only Ancillary [address] [place] [address] [place], Nurse Annual Wellness [address] [place] [address] [place] [address] Scheduled Procedures Name Priority Associated Diagnoses Date/Ti [...] Additional history exists CKD PHOS USE SMARTSET 62244 06/08/202505/21, 03/14/2021, 09/22/2019 Adult Wellness Visit 06/17/2025 06/17/2024, 06/12/2023, 05/11/2022, Additional history exists CKD HGB USE SMARTSET 38308 06/17/202506/17, 06/07/2024, 05/20/2024, Additional history exists Depression [...] this encounter Medical Devices Implanted Type Area Backup Sawyer Device Identifier Shelf Expiration Date Model / Serial / Lot Suture Steel 6 B&S19 M654g - [id number] Implanted:Qty: 7 on 05/15/2024 by Alfonso Jay MD at OR [facility] N/A: Sternum JNJ : [employer] 08/20/2028 M654G / / TMMAST Marker Coronary - [id number] Implanted:Qty: 1 on 05/15/2024 by Alfonso Jay MD at OR [facility] N/A: Aorta [employer] 04/19/2027 [facility] / / [id number] Description:attached to vein graft Marker Coronary - [id number] Implanted:Qty: 1 on 05/15/2024 by Alfonso Jay MD at OR [facility] N/A: Aorta [employer] 03/20/2027 [facility] / / [id number] Description:attached to vein graft documented as of [...] and were consensually agreed upon. Care Teams Glue Sprayer Relationship Specialty Start Date End Date Jasmina Taylor MD [address] [place] [address] [place] [address] PCP - General Family Medicine 05/07/24 documented as of this encounter
--- OUTSIDE RECORDS SUMMARY | 2024-07-07 20:08 | External Medical Summary | Summary of Care ---
Author Name Unknown Organization [facility] Address [address] [place] [address] Phone [phone] Care Team Providers Care Family Lawyer Name Role Phone Jasmina Taylor MD Primary Care Provide r Reason for Visit * Reason Onset Date Comments [facility]: Maintenance 07/02/2024 Encounter Details Date Type Department Care Team (Late st Contact Info) Description 07/02/2024 11:30 AM EDT Scheduled Telephone [facility], [facility] [address] [place] [address] Coordinator, [facility] [address] [place] [address] Allergies Active Allergy Reactions Criticality Noted Date [...] mRNA, LNP-s, No Pre serve, 2-Dose Series ([employer]) 08/22/2021,12/14/2020,11/23/2020 COVID-19, LNP-s, No Preserve , Clive-sucrose, [...] No 06/17/2024 Does the household have a [facility] source [facility] income? (Household - for ages [...] encounter Miscellaneous Notes * Telephone Encounter - Roberto Vidal MD - 07/02/2024 11:45 AM EDT Recommendations: Wrote for sublingual nitro to pharmacy. Tomorrow's appointment can help guide antihypertensive therapy No orders of the defined types were placed in this encounter. E * Telephone Encounter - Juanita Pleitez RN - 07/02/2024 10:49 AM EDT [facility] Telephonic Nurse Follow-Up Call [facility] Subprogram: Focused Care Management (3-9 months) Follow [...] available today to do VS check, has [facility] RNCM HV tomorrow Disposition: Routed to [facility] and/or [facility] Care Team for further advice and RNCM visit scheduled Future Visits Scheduled: Future Appointments-next 60 days Date/Time Provider Specialty Dept Phone 07/02/2024 11:30 AM Coordinator, Shama King [facility] [phone] 07/03/2024 12:30 PM Sarah Manuel RN [facility] [phone] 07/06/2024 5:40 PM (Arrive by 5:25 PM) Jasmina Taylor MD Family Medicine [phone] 08/05/2024 10:00 AM Sarah Manuel RN [facility] [phone] 08/19/2024 3:00 PM (Arrive by 2:45 PM) German Laboy DO Cardiology [phone] 08/25/2024 1:40 PM (Arrive by 1:25 PM) Jasmina Taylor MD Family Medicine [phone] 10/05/2024 2:00 PM (Arrive by 1:45 PM) Martha Porter CRNP Gastroenterology [phone] 01/20/2025 3:20 PM (Arrive by 3:05 PM) Carolynn Dailey PA-C Dermatology [phone] 06/18/2025 10:00 AM [place], Nurse [facility] Ancillary [phone] Juanita Pleitez RN documented in this encounter Plan of Treatment Upcoming Encounters Date Type Department Care Team (Late st Contact Info) Description 07/03/2024 12:30 PM EDT [facility] Visit [facility] [address] [facility] [place] [address] Sarah Manuel RN [address] [facility] [place] [address] 07/06/2024 5:40 PM EDT Office Visit Family Medicine [address] [place] [phone] Jasmina Taylor MD [address] [place] [address] [place] [phone] 08/05/2024 10:00 AM EDT [facility] Visit [facility], [facility] [address] [place] [address] Sarah Manuel, RN [address] [place] [address] 08/19/2024 3:00 PM EDT Office Visit Cardiology, [facility] [place] [address] German Laboy DO [address] [place] [address] 08/25/2024 1:40 PM EST Office Visit Family Medicine [address] [place] [phone] Jasmina Taylor MD [address] [place] [address] [place] [address] 10/05/2024 2:00 PM EST Office Visit Gastroenterology, [facility] [place] [address] Martha Porter CRNP [address] [facility] [place] [address] 01/20/2025 3:20 PM EDT Office Visit Dermatology [address] [place] [address] Carolynn Dailey PA-C [address] [place] [address] [place] [address] 06/18/2025 10:00 AM EDT Nurse Only Ancillary [address] [place] [address] [place], Nurse [address] [place] [address] Scheduled Procedures Name Priority Associated Diagnoses Date/Ti [...] Additional history exists CKD PHOS USE SMARTSET 13847 06/08/202505/21, 03/14/2021, 09/22/2019 Adult Wellness Visit 06/17/2025 06/17/2024, 06/12/2023, 05/11/2022, Additional history exists CKD HGB USE SMARTSET 85943 06/17/202506/17, 06/07/2024, 05/20/2024, Additional history exists Depression [...] this encounter Medical Devices Implanted Type Area Scarfer Operator Device Identifier Shelf Expiration Date Model / Serial / Lot Suture Steel 6 B&S19 M654g - [id number] Implanted:Qty: 7 on 05/15/2024 by Alfonso Jay MD [place] [facility]A: Sternum JNJ : [employer] 08/20/2028 M654G / / TMMAST Marker Coronary - [id number] Implanted:Qty: 1 on 05/15/2024 by Alfonso Jay MD [place] [facility] [place]/A: Aorta [employer] 04/19/2027 AM-SD / / [id number] Description:attached to vein graft Marker Coronary - [id number] Implanted:Qty: 1 on 05/15/2024 by Alfonso Jay MD [place] [facility] [place]/A: Aorta [employer] 03/20/2027 AM-SD / / [id number] Description:attached to vein graft documented as of [...] and were consensually agreed upon. Care Teams Family Lawyer Relationship Specialty Start Date End Date Jasmina Taylor MD [address] [place] [address] [place] [phone] PCP - General Family Medicine 05/07/24 documented as of this encounter
--- OUTSIDE RECORDS SUMMARY | 2024-07-07 20:08 | External Medical Summary | Summary of Care ---
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 9 Active Multiple Vitamins-Minerals (MULTIVITAMIN ADULTS) TABS Take 1 Tab by mouth daily. Active aspirin enteric coated 81 MG TBEC Take 1 Tablet by mouth in the morning. 0 Active Hydrocortisone 2.5 % External CreamIndications: Hemorrhoids, unspecified hemorrhoid type Apply topically to affected area 2 times a day. 28 g 3 Active Pantoprazole Sodium 40 MG Oral Tablet Delayed Release (Protonix)Indicat ions:Gastroesopha geal reflux disease without esophagitis Take 1 Tablet by mouth in the morning. 30 minutes before the first meal of the day. Do not crush, split or chew the tablet. 90 Tablet 3 4 Active Pravastatin Sodium 40 MG Oral Tablet (Pravachol) Take 1 Tablet by mouth daily with dinner 100 Tablet 1 4 Active Mirtazapine 15 MG Oral Tablet (Remeron) Take 1 Tablet by mouth at bedtime. 90 Tablet 4 Active traMADol HCl 50 MG Oral Tablet (Ultram) Take 0.5 Tablets by mouth every 6 hours as needed for Pain, Moderate. 10 Tablet 4 Active Levalbuterol Tartrate 45 MCG/ACT Inhalation Aerosol (Xopenex HFA)Indications:M ild intermittent asthma without complication Inhale 2 Puffs by mouth every 4 hours as needed for Wheezing. 15 g 5 4 Active Magnesium 400 MG Oral Tablet Take 200 mg by mouth in the morning. Active Metoprolol Succinate ER 25 MG Oral Tablet Extended Release 24 Hour (toPROL XL) Take 1 Tablet by mouth in the morning and 1 Tablet before bedtime. 4 Active Eliquis 5 MG Oral Tablet Take 1 Tablet by mouth in the morning and 1 Tablet before bedtime. 30 Tablet 4 Active Apixaban 5 MG Oral Tablet (Eliquis) Take 1 Tablet by mouth in the morning and 1 Tablet before bedtime. 180 Tablet 4 Active Amiodarone HCl 200 MG Oral Tablet (Cordarone) Take 1 Tablet by mouth daily with breakfast. Until gone, do not renew 30 Tablet 4 06/25/20 24 Discontinued(End of Procedure) Furosemide 40 MG Oral Tablet (Lasix) Take 1 Tablet by mouth in the morning and 1 Tablet in the evening. For 1 week, then decrease to 1 tab daily until gone. Do not start before May 21, 2024. 35 Tablet 4 06/25/20 24 Discontinued Potassium Chloride ER 10 MEQ Oral Tablet Extended Release Take 2 Tablets by mouth in the morning. Take with lasix until gone. 60 Tablet 4 06/25/20 24 Discontinued Doxycycline Hyclate 100 MG Oral Capsule Take 1 Capsule by mouth in the morning and 1 Capsule before bedtime. Do all this for 10 days. Until gone.. 20 Capsule 4 06/25/20 24 Discontinued documented as of this encounter (statuses as of 07/01/2024) Active Problems Problem Noted Date Diagnosed Date [...] as of this encounter (statuses as of 07/01/2024) Resolved Problems Problem Noted Date Diagnosed Date [...] as of this encounter (statuses as of 07/01/2024) Immunizations Name Administration Dates Next Due COVID-19 mRNA, LNP-s, No Pre serve, 2-Dose Series ([employer]) 08/22/2021,12/14/2020,11/23/2020 COVID-19, LNP-s, No Preserve , Clive-sucrose, [...] Sign Reading Time Taken Comments Blood Pressure 118/80 06/25/2024 10:57 AM EDT Pulse 68 06/25/2024 10:57 AM EDT Temperature - - Respiratory Rate - - Oxygen Saturation 98% 06/25/2024 10:57 AM EDT Inhaled Oxygen Concentration - - [...] as of this encounter Progress Notes * Theron Hester PA-C - 06/25/2024 10:28 AM EDT Images from the original note were not included. 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) (Primary) Overview: S/p CABG X 3 HERNANDEZ to LAD SVG to OM, PDA 05/15/[address] Tabares Assessment & Plan: Stable today Continue f/u with cardiology Continue metoprolol and statin #2 S/P CABG x 3 #3 HTN, goal below 140/90 #4 Chronic kidney disease, stage 3a (HCC) #5 Advanced care planning/counseling discussion Additional Medical Decision Making: Patient lives with spouse 2 story home with 1st floor bedroom Independent with ADLS and ambulation Interested in starting [facility], reports this was cleared by air dispatcher Scheduled appointments in the next 60 days: Future Appointments-next 60 days Date/Time Provider Specialty Dept Phone 06/25/2024 1:00 PM Theron Hester PA-C [facility] [phone] 08/05/2024 10:00 AM Sarah Manuel RN [facility] [phone] 08/19/2024 3:00 PM (Arrive by 2:45 PM) German Laboy DO Cardiology [phone] 08/25/2024 1:40 PM (Arrive by 1:25 PM) Jasmina Taylor MD Family Medicine [phone] 10/05/2024 2:00 PM (Arrive by 1:45 PM) Martha Porter CRNP Gastroenterology [phone] 01/20/2025 3:20 PM (Arrive by 3:05 PM) Carolynn Dailey PA-C Dermatology [phone] 06/18/2025 10:00 AM Nurse [place] Annual [facility] Ancillary [phone] A total of 45 minutes was spent face to face (via video-based telemedicine if designated as a telemedicine visit) Subjective Subjective Is this a Telemedicine Visit? No, this is an Home Visit. Reason For [facility] Visit: Enrollment Current Concerns: Amairani Khan is a 74 year old female seen today for a [facility] provider visit. 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 Getting around well Denies SOB at rest, some ongoing FAIR Denies chest pain Recntly seen by cardiology, cleared for cardiac rehab Interested in [facility] program Additional Objective Objective Vitals: 06/25/24 1057 Pulse: 68 SpO2: 98% BP: 118/80 Last Weights: Wt Readings from Last 3 Encounters: 06/24/24 82 kg (180 lb 12.8 oz) 06/18/24 81.6 kg (180 lb) 06/17/24 81.9 kg (180 lb 9.6 oz) Last BPs: BP Readings from Last 4 Encounters: 06/25/24 118/80 06/24/24 120/80 06/18/24 122/78 06/17/24 124/78 General: alert and no distress Neuro: alert & oriented x 3 with fluent speech Heart: regular rate & rhythm and no murmur, incision well healed Lungs: lungs clear to auscultation, no wheeze, no rales, no rhonchi Abdomen: abdomen soft, non-tender, normal bowel sounds, and no rebound or guarding Theron Hester PA-C 10:28 AM documented in this encounter Miscellaneous Notes * ACP (Advance Care Planning) - Theron Hester PA-C - 07/01/2024 12:09 PM EDT Patient-centered Communication 06/25/2024 The patient/surrogate voluntarily agreed to participate in advance care planning discussion. They were advised that this is a separate service which may incur out of pocket cost in the form of copayment and/or deductibles. Location: Home Individual(s) present for conversation: Patient Decisions Synopsis SmartLink Most Recent Value Past ~10 years 07/01/2024 12:08 Decisions CPR decision: Patient chooses CPR 07/01/2024 Patient chooses CPR Intubation/Mechanical Ventilation decision: Patient chooses Intubation/mechanical ventilation 07/01/2024 Patient chooses Intubation/mechanical ventilation Non-invasive ventilation or BIPAP decision: Patient chooses non-invasive ventilation. Select interventions below 06/16/2024 Non-Invasive Ventilation Interventions: NIV 06/16/2024 Antibiotic therapy decision: Patient chooses Antibiotic therapy 07/01/2024 Patient chooses Antibiotic therapy Artificial nutrition decision: Undecided about Artificial nutrition 06/16/2024 IV hydration decision: Patient chooses IV hydration 06/16/2024 Surgical procedure(s) decision: Patient chooses Surgical procedure 06/16/2024 Blood transfusion decision: Patient chooses Blood transfusion 06/16/2024 Lab draw decision: Patient chooses Lab draws 06/16/2024 Transport decision: Patient chooses Transport 06/16/2024 Dialysis decision: Undecided about Dialysis 06/16/2024 Additional Comments [employer]ash[employer] SmartLink Most Recent Value Past ~10 years 06/17/2024 11:20 Additional Comments Additional Comments: Advance Care Planning is important for all adults. Discussed the process of thinking and talking about future healthcare decisions.ACP form and pamphlet given to patient to take home to discuss with family. Once form is completed , patient to get a copy to us to scan into their chart. 06/17/2024 Advance Care Planning is important for all adults. Discussed the process of thinking and talking about future healthcare decisions.ACP form and pamphlet given to patient to take home to discuss with family. Once form is completed , patient to get a copy to us to scan into their chart. Discerning What Matters Most to the Patient: Synopsis SmartLink Most Recent Value Past ~10 years 07/01/2024 12:08 Discerning What Matters Most to the Patient In their own words, patient's UNDERSTANDING of their illness is: compared to others my aga, my healt is still good, but due to the CABG x 3 pt is unable to do things she used to do 06/17/2024 Their current SYMPTOMS include: Tiredness;Shortnes of breath 07/01/2024 Tiredness;Shortnes of breath The patient's HOPES are: Maintain current functional abilities 06/17/2024 Source: Content from NXE Program Aligning Care With What Matters Most: Synopsis [employer] Most Recent Value Past ~10 years 07/01/2024 12:08 Aligning Care With What Matters Most In their own words, the patient's understanding of their prognosis: compared to others my aga, my healt is still good 06/17/2024 Interventions/Choices: CPR;Intubation/mechanical ventilation;Antibiotic therapy;IV hydration 07/01/2024 CPR;Intubation/mechanical ventilation;Antibiotic therapy;IV hydration Source: Content from [employer] Program 10 minutes spent in direct [id number] discussion today, Theron Hester PA-C * Assessment & Plan Note - Theron Hester PA-C - 07/01/2024 12:03 PM EDT Associated Problem(s): Coronary artery disease Stable today Continue f/u with cardiology Continue metoprolol and statin documented in this encounter Plan of Treatment Upcoming Encounters Date Type Department Care Team (Late st Contact Info) Description 07/02/2024 11:30 AM EDT Scheduled Telephone [facility], [facility] [address] [place] [address] Coordinator, [facility] [address] [place] [address] 07/03/2024 12:30 PM EDT Home Visit [facility], [facility] [address] [place] [address] Sarah Manuel, TAWANNA [address] [place] [address] 07/06/2024 5:40 PM EDT Office Visit Family Medicine [address] [phone] Jasmina Taylor MD [address] [place] [address] [place] [address] 08/05/2024 10:00 AM EDT [facility] Visit [facility], [facility] [address] [place] [address] Sarah Manuel, RN [address] [place] [address] 08/19/2024 3:00 PM EDT Office Visit Cardiology, [facility] [address] [place] [address] German Laboy DO [address] [place] [address] 08/25/2024 1:40 PM EST Office Visit Family Medicine [address] [place] [phone] Jasmina Taylor MD [address] [place] [address] [place] [address] 10/05/2024 2:00 PM EST Office Visit Gastroenterology, [facility] [address] [place] [address] Martha Porter CRNP [address] [place] [address] 01/20/2025 3:20 PM EDT Office Visit Dermatology [address] [place] [address] Carolynn Dailey PA-C [address] [place] [address] [place] [address] 06/18/2025 10:00 AM EDT Nurse Only Ancillary [address] [place] [address] [place], Nurse Annual Wellness [address] [place] [address] [place] [address] Scheduled Procedures Name Priority Associated Diagnoses Date/Ti [...] Additional history exists CKD PHOS USE SMARTSET 03262 06/08/202505/21, 03/14/2021, 09/22/2019 Adult Wellness Visit 06/17/2025 06/17/2024, 06/12/2023, 05/11/2022, Additional history exists CKD HGB USE SMARTSET 66848 06/17/202506/17, 06/07/2024, 05/20/2024, Additional history exists Depression [...] this encounter Medical Devices Implanted Type Area Transport Analyst Device Identifier Shelf Expiration Date Model / Serial / Lot Suture Steel 6 B&S19 M654g - [id number] Implanted:Qty: 7 on 05/15/2024 by Alfonso Jay MD [place] [facility] [place]: Sternum JNJ : [employer] 08/20/2028 M654G / / TMMAST Marker Coronary - [id number] Implanted:Qty: 1 on 05/15/2024 by Alfonso Jay MD [place] [facility] [place]/A: Aorta [employer] 04/19/2027 [facility] / / [id number] Description:attached to vein graft Marker Coronary - [id number] Implanted:Qty: 1 on 05/15/2024 by Alfonso Jay MD at [place] [facility] [place]/A: Aorta [employer] 03/20/2027 AM-SD / / [id number] Description:attached to vein graft documented as of this encounter Visit Diagnoses Diagnosis 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 Care Teams Form Setter/Driver Relationship Specialty Start Date End Date Jasmina Taylor MD [address] [place] [address] [place] [phone] PCP - General Family Medicine 05/07/24 documented as of this encounter
--- OUTSIDE RECORDS SUMMARY | 2024-07-07 20:08 | External Medical Summary | Summary of Care ---
Author Name Unknown Organization [facility] Address [address] [place] [address] Phone [phone] Care Team Providers Care Structures Technician Name Role Phone Jasmina Taylor MD Primary Care Provide r Encounter Details Date Type Department Care Team (Late st Contact Info) Description 06/30/2024 Population Health External Data Unspecified Department Allergies [...] goal below 140/90 09/07/200911/24 Overview: Modified per [facility] protocol #16. Dyslipidemia, goal to be determined 02/17/2009 11/09/2013 Thyroid nodule 11/24/2021 documented as of this encounter (statuses as of 06/30/2024) Immunizations Name Administration Dates Next Due COVID-19 mRNA, LNP-s, No Pre serve, 2-Dose Series (Pfizer) 08/22/2021,12/14/2020,11/23/2020 COVID-19, LNP-s, No Preserve , Clive-sucrose, Ages 12+ (Pfizer) 02/13/2022 COVID-19, MRNA-LNP, 23-24, P F, 30 MCG/0.3 mL, 12 YRS AND ABOVE, IM ([facility]) 08/23/2023 Covid-19, Mrna, Lnp-s, Pf, B ivalent, 30 Mcg, IM, 12 yrs and above ([facility]) 07/24/2022 Pneumococcal Conjugate Vacc, 13 Valent (Prevnar) [...] 5:40 PM EDT Office Visit Family Medicine [address] [place] [address] Jasmina Taylor MD [address] [place] [address] [place] [address] 08/05/2024 10:00 AM EDT Home Visit [facility] [address] [place] [address] [address] Sarah Manuel, TAWANNA [address] [address] 08/19/2024 3:00 PM EDT Office Visit Cardiology, [facility] [address] [id number] German Laboy, DO [address] [place] [address] 08/25/2024 1:40 PM EST Office Visit Family Medicine [address] [place] [phone] Jasmina Taylor MD [address] [place] [address] [place] [id number] 10/05/2024 2:00 PM EST Office Visit Gastroenterology, [facility] [address] [place] [address] Martha Porter CRNP [address] [place] [address] 01/20/2025 3:20 PM EDT Office Visit Dermatology [address] [place] [address] Carolynn Dailey PA-C [address] [place] [address] [place] [id number] 06/18/2025 10:00 AM EDT Nurse Only Ancillary [address] [place] [address] [place], Nurse Annual Wellness [address] [place] [address] [place] [id number] Scheduled Procedures Name Priority Associated Diagnoses Date/Ti [...] Additional history exists CKD PHOS USE SMARTSET 49764 06/08/202505/21, 03/14/2021, 09/22/2019 Adult Wellness Visit 06/17/2025 06/17/2024, 06/12/2023, 05/11/2022, Additional history exists CKD HGB USE SMARTSET 46204 06/17/202506/17, 06/07/2024, 05/20/2024, Additional history exists Depression [...] this encounter Medical Devices Implanted Type Area Processing Operator Device Identifier Shelf Expiration Date Model / Serial / Lot Suture Steel 6 B&S19 M654g - [id number] Implanted:Qty: 7 on 05/15/2024 by Alfonso Jay MD at OR [facility] N/A: Junior ZUÑIGA : [employer] 08/20/2028 M654G / / TMMAST Marker Coronary - [id number] Implanted:Qty: 1 on 05/15/2024 by Alfonso Jay MD at OR [facility] N/A: Aorta [employer] 04/19/2027 [facility] / / [id number] Description:attached to vein graft Marker Coronary - [id number] Implanted:Qty: 1 on 05/15/2024 by Alfonso Jay MD at OR [facility] N/A: Aorta [employer] 03/20/2027 [facility] / / [id number] Description:attached to vein graft documented as of [...] and were consensually agreed upon. Care Teams Structures Technician Relationship Specialty Start Date End Date Jasmina Taylor MD [address] [place] [address] [place] [id number] PCP - General Family Medicine 05/07/24 documented as of this encounter
[2024-07-07] MEDS ORDERED: ACETAMINOPHEN 325 MG TAB PO PRN (22:29)
[2024-07-07] MEDS ORDERED: ONDANSETRON INJ 2 MG/ML 2 ML VIAL IV PRN (22:29)
[2024-07-07] MEDS ORDERED: hydrALAZINE HCL 20 MG/ML VIAL IV PRN (22:29)
[2024-07-07] MEDS ORDERED: traMADol HCL 50 MG TABLET PO PRN (22:29)
[2024-07-07] MEDS ORDERED: POLYETHYLENE (MIRALAX) 17 GM PACK PO PRN (22:29)
[2024-07-07] MEDS ORDERED: LEVALBUTEROL TARTRATE 15 GM HFA.AER.AD INH PRN (22:29)
[2024-07-07] MEDS ORDERED: NITROGLYCERIN SL 0.4 MG/TAB TAB SL PRN (22:29)
[2024-07-07] MEDS: PRAVASTATIN SOD 40 MG TAB PO SCH (23:23)
[2024-07-07] MEDS: METOPROLOL SUCC 25MG EXT REL TAB PO SCH (23:23)
[2024-07-07] MEDS: MIRTAZAPINE TAB 15 MG TAB PO SCH (23:23)
[2024-07-07] MEDS: APIXABAN 5 MG TABLET PO SCH (23:24)
[2024-07-08 04:34] LABS: Hematocrit (blood only) 37.7 % (37.0-47.0); Hemoglobin 12.1 g/dl (12.0-16.0); Mean Corpuscular Hemoglobin 28.9 pg (25.0-34.0); Mean Corpuscular Hgb Conc 32.1 g/dL (32.0-36.0); Mean Corpuscular Volume 90.2 fL (80.0-100.0); Mean Platelet Volume 10.3 fL (9.4-12.4); Platelet Count 192 K/uL (130-400); RDW Standard Deviation 46.6 fL (36.4-46.3); Red Blood Count 4.18 M/uL (4.20-5.40); White Blood Count 6.11 K/ul (4.8-10.8)
[2024-07-08 04:43] LABS: BUN Creatinine Ratio 14.3 (10-20); Creatinine Clr Calc Pharmacy 58.6 ml/min; Est GFR (African American) 72.5 ml/min; Est GFR (Non-African American) 62.6 ml/min; Magnesium 1.9 mg/dl (1.7-2.4); Phosphorus 4.2 mg/dl (2.5-4.9)
[2024-07-08 04:50] LABS: Troponin I High Sensitivity 9.2 pg/ml (0-14)
[2024-07-08] MEDS: PANTOprazole 40 MG TAB PO SCH (05:59)
[2024-07-08 07:37] LABS: Estimated Average Glucose 111 mg/dl; Hemoglobin A1C 5.5 % (4.5-5.6)
[2024-07-08] MEDS: lisinopril 40 MG TAB PO SCH (08:43)
[2024-07-08] MEDS: MAGNESIUM OXIDE 400 MG TAB PO SCH (08:43)
[2024-07-08] MEDS: ASPIRIN 81 MG ECTAB PO SCH (08:43)
[2024-07-08] MEDS: MULTIVITAMIN TAB PO SCH (08:43)
[2024-07-08] MEDS: hydroCHLOROthiazide 25 MG TAB PO SCH (08:44)
[2024-07-08] MEDS: carvediloL 3.125 MG TAB PO ONE (12:44)
--- NOTE | 2024-07-08 13:22 | Cardiology Consultation ---
Date of Consultation July 08, 2024 Assessment & Plan (1) Hypertension: * Continue lisinopril 40 mg daily * Change metoprolol to coreg 3.125 mg daily * Start HCTZ 12.5 mg daily (2) Chest pain: * It would be somewhat unusual for the patient to present 2 months removed from CABG, with subtle anginal symptoms and her troponin levels are reassuring. Repeat echocardiogram once again reveals normal wall motion. She however has had transient worsening repolarization abnormalities on EKG especially that noted on 06/29/2024. Her discomfort on presentation last night was relieved with the administration of sublingual nitroglycerin, but it is also noticed that her presenting blood pressure measurement was 161/109, and perhaps the nitroglycerin made her feel better just because it helped with her blood pressure. * Continue current treatment for blood pressure as noted above * Inflammatory markers negative, and symptoms not suggestive of pericarditis * Could consider nuclear stress testing , depending how patient feels later today, however likelihood of a problem with her grafts is felt to be low. (3) S/P CABG x 3: * as noted above (4) Pulmonary embolism: * CTA with improved findings. Continue anticoagulation, to complete 3-6 months of therapy History of Present Illness Attending Physician: Emanuel Singletary MD History of Present Illness Amairani Khan is a 74 year old female seen in cardiology consultation per the request of Dr Rees for the evaluation of hypertension and chest pain. The patient's recent history dates back to April, when she presented with left-sided chest discomfort. EKG at that time was negative for acute injury pattern. Cardiac enzymes negative. A nuclear stress test was abnormal with apical scar and superimposed ischemia. She went on to have cardiac catheterization performed by Dr. Laboy and was found to have multivessel coronary heart disease. She was transferred to [facility] and underwent CABG x 3 on 05/15/2024 receiving HERNANDEZ to LAD, SVG to OM, SVG to PDA. Prior to the index hospitalization, outpatient medications included atenolol 50 mg daily and lisinopril 10 mg daily for hypertension. Post CABG, she was discharged on a 30-day course of furosemide 40 mg daily along with potassium chloride and a 30-day course of amiodarone. She was readmitted to [facility] from 06/06/2024 until 06/08/2024. Chest discomfort and was found to have bilateral segmental and subsegmental pulmonary emboli, prompting initiation of anticoagulation. She was readmitted again on 06/11/2024 and on 06/27/2024 with ongoing concerns of elevated blood pressure readings and chest discomfort. She presented again last evening, at home she was concerned about her blood pressure readings. Readings have been in the range of 169/113 and 174/113. She had an additional measurement the day before of 184/112. This is taken place despite being on metoprolol 25 mg twice daily and lisinopril 40 mg daily. Last week, initiation of HCTZ 12.5 mg daily was recommended but she had yet to start this agent. In addition to concerns about her high blood pressure she notes a pressure sensation over both of her breasts. It can occur at rest and not necessarily with aerobic exertion. She states that this sensation is different than that which prompted her initial cardiac catheterization. At present during my assessment, patient felt subjectively improved. Allergies Allergy/AdvReac Type Severity Reaction Status Date / Time Sulfa (Sulfonamide Allergy Intermediate Hives Verified 06/27/24 21:32 Antibiotics) codeine AdvReac Intermediate "deathly Verified 06/27/24 21:32 sick and I throw up" levofloxacin [From Levaquin] AdvReac Mild Nausea Verified 06/27/24 21:32 Home Medications Medication Instructions Recorded Confirmed Type coenzyme Q10 200 mg capsule (Co 200 mg PO QAM 02/12/19 07/07/24 History Q-10) aspirin 81 mg tablet,delayed 81 mg PO DAILY 08/17/20 07/07/24 History release (Ousmane Low Dose Aspirin) pantoprazole 40 mg tablet,delayed 40 mg PO DAILYBB 08/28/22 07/07/24 History release mirtazapine 15 mg tablet 7.5 mg PO HS 03/04/24 07/07/24 History multivitamin 1 tab PO QAM 03/04/24 07/07/24 History pravastatin 40 mg tablet 40 mg PO HS 03/04/24 07/07/24 History levalbuterol tartrate 45 1 inh inhalation UD PRN Shortness 06/06/24 07/07/24 History mcg/actuation aerosol inhaler Of Breath tramadol 50 mg tablet 25 mg PO Q6H PRN Moderate Pain 06/06/24 07/07/24 History (Scale Score 5-6) metoprolol succinate 25 mg 25 mg PO BID #60 tabs 06/14/24 07/07/24 Rx tablet,extended release 24 hr apixaban 5 mg tablet (Eliquis) 5 mg PO BID 06/27/24 07/07/24 History magnesium oxide 400 mg (241.3 mg 200 mg PO QAM 06/27/24 07/07/24 History magnesium) tablet lisinopril 20 mg tablet 40 mg PO QAM 07/07/24 07/07/24 History Patient History Medical History CAD (coronary artery disease), kaw coronary artery Hypertensive emergency Asthma RARELY USES PRN INH HTN (hypertension) History of basal cell carcinoma Diverticular disease Valvular heart disease "LEAKY VALVE" - FOLLOWS W/ DR. DE SANTIAGO Hypertension Hyperlipidemia Surgical History S/P CABG (coronary artery bypass graft) History of cataract surgery LEFT History of basal cell carcinoma (BCC) excision History of hysterectomy History of esophagogastroduodenoscopy (EGD) History of colonoscopy Family History Sister Diabetes Brother Diabetes Other Heart disease Hypertension Social History Smoking Status: Never smoker Second Hand Exposure: No; Do You Dip or Chew Tobacco: No; Hx Alcohol Use: No Hx Substance Use: No Preferred Language: Slovenian Communication Ability: Effective Visual Impairment: Limited Hearing Ability: Normal 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 Stamping Required: No Beliefs That Will Affect Care: None marital status: Current Living Situation: Spouse Current Living Situation Comment: With , own home, [address] Feels Safe at Home: Yes Safety Concerns: Feels Safe At This Time Assistive Devices: Glasses Review of Systems Review of Systems: All systems reviewed & are unremarkable except as noted in HPI & below Physical Exam Physical Exam: General: no acute distress and stated age Eyes: conjunctiva are pink and non-injected, sclera clear Neck: normal jugular venous pulse, no hepatojugular reflux Chest: normal shape and normal respiratory effort -Midline sternotomy incision, clean dry intact, stable sternum Lungs: clear to auscultation and percussion Cardiac Exam: - regular heart sounds, no murmurs, rubs, or gallops, no jugular venous distention Abdomen: abdomen soft, non-tender, no abnormal masses and no hepatosplenomegaly Musculoskeletal: no gait disturbance, no weakness Extremities: no edema and no cyanosis Neuro:awake, conversant, follows commands, no focal motor deficits Psych: appropriate affect and insight. Results & Data Vital Signs (Past 12 Hours) Vital Signs Temp Pulse Resp BP Pulse Ox O2 Del Method 07/08/24 12:16 36.6 C 66 18 127/81 95 Room Air 07/08/24 08:09 36.4 C L 62 18 146/84 H 96 Room Air 07/08/24 02:48 36.4 C L 61 18 155/95 H 97 Room Air Laboratory Results Cardiac Enzymes 07/07/24 07/07/24 07/07/24 Range/Units 13:40 15:06 22:44 AST 19 (13-39) U/L Troponin I High Sens 7.7 9.6 8.7 (0-14) pg/ml 07/08/24 Range/Units 04:14 AST (13-39) U/L Troponin I High Sens 9.2 (0-14) pg/ml Coagulation 07/07/24 Range/Units 13:40 PT 10.9 (9.0-12.0) Seconds APTT 27 (21-31) Seconds CBC 07/07/24 07/08/24 Range/Units 13:40 04:14 WBC 9.70 6.11 (4.8-10.8) K/ul RBC 4.43 4.18 L (4.20-5.40) M/uL Hgb 12.8 12.1 (12.0-16.0) g/dl Hct 39.2 37.7 (37.0-47.0) % Plt Count 236 192 (130-400) K/uL Neut # (Auto) 7.19 H (1.40-6.50) K/uL Lymph # (Auto) 1.75 (1.20-3.40) K/uL Long # (Auto) 0.56 (0.11-0.59) K/uL Eos # (Auto) 0.13 (0.00-0.50) K/uL Baso # (Auto) 0.04 (0.00-0.20) K/uL Comprehensive Metabolic Panel 07/07/24 07/08/24 Range/Units 13:40 04:14 Sodium 140 140 (136-145) mmol/L Potassium 4.2 4.0 (3.5-5.1) mmol/L Chloride 107 108 H (98-107) mmol/L Carbon Dioxide 26 26 (21-32) mmol/L BUN 14 13 (6-23) mg/dl Creatinine 0.88 0.91 (0.6-1.2) mg/dl Glucose 118 H 92 (70-99(Fasting)) mg/dl Calcium 9.4 9.0 (8.6-10.3) mg/dl AST 19 (13-39) U/L ALT 17 (7-52) U/L Alkaline Phosphatase 66 (34-104) U/L Total Protein 7.6 (6.0-8.3) gm/dl Albumin 4.3 (3.4-5.0) gm/dl Intake and Output 07/07/24 07/08/24 07/08/24 22:59 06:59 14:59 Intake Total 350 / 350 Output Total 350 / 350 250 / 250 Balance 350 / 0 -350 / 0 -250 / -250 Intake: IV 350 / 350 Acetaminophen 1,000 mg In 100 100 / 100 ml @ 400 mls/hr IV NOW STA Rx#: [id number] Sodium Chloride 0.9% 250 ml @ 250 / 250 999 mls/hr IV .Q16M ONE Rx#: [id number] Output: Urine 350 / 350 250 / 250 Other: Weight 83 kg 83 kg Weight Measurement Method Built in [facility] Built in [facility] Echocardiogram performed 07/08/2024: Septal motion consistent with postoperative state Otherwise normal left ventricular wall motion LVEF normal range of 55 to 60% Grade I diastolic dysfunction No significant valvular disease No pericardial effusion Unchanged compared to the previous dated 06/13/2024 Summary of radiology report of CT angiogram of the chest performed 07/07/2024: 1. Near-complete resolution of the scattered segmental/subsegmental pulmonary emboli with a few small linear nonocclusive chronic emboli remaining. No new filling defects within the pulmonary arteries to suggest an acute pulmonary embolus. 2. Mosaic attenuation within the lungs consistent with air trapping. 3. Bibasilar linear densities favor subsegmental atelectasis. 4. Cardiomegaly and a trace pericardial effusion, unchanged. 5. Poststernotomy changes are again noted with progress Most recent EKG performed 07/08/2024 and interpret independently: Sinus rhythm at 60 bpm with first-degree AV block, poor R wave progression noted in the anterior precordial leads, T wave inversions noted in the inferior and lateral leads, slightly more pronounced than that which was noted on 07/07/2024. Per review of serial EKG tracings since her bypass surgery, nonspecific T wave flattening noted on serial tracings, there were 2 tracings however performed on 06/29/2024 at 5:55 AM with deep diffuse T wave inversions, slightly more prominent than that which is noted today. (1) Hypertension Hypertension type: unspecified Qualified Code(s): I10 - Essential (primary) hypertension (2) Chest pain Chest pain type: unspecified Qualified Code(s): R07.9 - Chest pain, unspecified (4) Pulmonary embolism Acute cor pulmonale presence: unspecified Chronicity: acute Pulmonary embolism type: unspecified Qualified Code(s): I26.99 - Other pulmonary embolism without acute cor pulmonale
[2024-07-08] MEDS: carvediloL 3.125 MG TAB PO SCH (16:39)
--- NOTE | 2024-07-09 06:14 | Electrocardiogram Report ---
Test Reason : Blood Pressure : */* mmHG Vent. Rate : 60 BPM Atrial Rate : 60 BPM P-R Int : 228 ms QRS Dur : 102 ms QT Int : 438 ms P-R-T Axes : 16 -44 -44 degrees QTcB Int : 438 ms Sinus rhythm with 1st degree A-V block Left axis deviation Cannot rule out Anterior infarct (cited on or before 06-Jun-2024) Abnormal ECG When compared with ECG of 07-Jul-2024 13:06, NM interval has increased Inverted T waves have replaced nonspecific T wave abnormality in Inferior leads Inverted T waves have replaced nonspecific T wave abnormality in Anterolateral leads Confirmed by Ashkan Hernandez ([id number]) on 07/09/2024 6:14:06 AM Referred By: REFERRED SELF Confirmed By: Ashkan Hernandez
[2024-07-09 07:29] VITALS: O2SAT 96
[2024-07-09 08:40] LABS: BUN Creatinine Ratio 18.4 (10-20); Calcium 8.8 mg/dl (8.6-10.3); Creatinine Clr Calc Pharmacy 54.4 ml/min; Est GFR (African American) 66.3 ml/min; Est GFR (Non-African American) 57.2 ml/min; Potassium 4.2 mmol/L (3.5-5.1)
--- NOTE | 2024-07-09 09:37 | Cardiology Progress Note ---
Date of Service July 09, 2024 Assessment & Plan (1) Hypertension: Plan: * Continue lisinopril 40 mg daily * Change metoprolol to coreg 3.125 mg daily * HCTZ 12.5 mg daily * BP improved, BMP reveals stable kidney funtion and electrolytes (2) Chest pain: Plan: * It would be somewhat unusual for the patient to present 2 months removed from CABG, with subtle anginal symptoms and her troponin levels are reassuring. Repeat echocardiogram once again reveals normal wall motion. She however has had transient worsening repolarization abnormalities on EKG especially that noted on 06/29/2024. Her discomfort on presentation last night was relieved with the administration of sublingual nitroglycerin, but it is also noticed that her presenting blood pressure measurement was 161/109, and perhaps the nitroglycerin made her feel better just because it helped with her blood pressure. * Continue current treatment for blood pressure as noted above * Inflammatory markers negative, and symptoms not suggestive of pericarditis * ambulated in hallway this am without CP * Plan on Lexiscan nuclear stress today at 13:30 (3) S/P CABG x 3: Plan: * as noted above (4) Pulmonary embolism: Plan: * CTA with improved findings. Continue anticoagulation, to complete 3-6 months of therapy Admission and Anticipated Discharge Date Admission Date: July 08, 2024 Subjective Pt seen in cardiology follow up. Feels well. Denies chest pain. BP has been better. Telemetry reveals SR in the 70s. One brief asymptomatic run of SVT observed on 07/08/24 at 22:50. Review of Systems Review of Systems: All systems reviewed & are unremarkable except as noted in HPI & below Physical Exam Physical Exam: General: no acute distress and stated age Eyes: conjunctiva are pink and non-injected, sclera clear Neck: normal jugular venous pulse, no hepatojugular reflux Chest: normal shape and normal respiratory effort -Midline sternotomy incision, clean dry intact, stable sternum Lungs: clear to auscultation and percussion Cardiac Exam: - regular heart sounds, no murmurs, rubs, or gallops, no jugular venous distention Abdomen: abdomen soft, non-tender, no abnormal masses and no hepatosplenomegaly Musculoskeletal: no gait disturbance, no weakness Extremities: no edema and no cyanosis Neuro:awake, conversant, follows commands, no focal motor deficits Psych: appropriate affect and insight. Results & Data Vital Signs (Past 12 Hours) Vital Signs Temp Pulse Pulse Resp BP Pulse Ox O2 Del Method 07/09/24 07:29 36.5 C 64 18 146/92 H 96 Room Air 07/09/24 02:37 36.6 C 71 20 107/70 94 Room Air 07/08/24 23:36 72 07/08/24 23:27 36.8 C 72 16 118/76 94 Room Air Laboratory Results Comprehensive Metabolic Panel 07/09/24 Range/Units 07:55 Sodium 140 (136-145) mmol/L Potassium 4.2 (3.5-5.1) mmol/L Chloride 107 (98-107) mmol/L Carbon Dioxide 27 (21-32) mmol/L BUN 18 (6-23) mg/dl Creatinine 0.98 (0.6-1.2) mg/dl Glucose 93 (70-99(Fasting)) mg/dl Calcium 8.8 (8.6-10.3) mg/dl Intake and Output 07/08/24 07/09/24 07/09/24 22:59 06:59 14:59 Intake Total 300 / 675 Output Total 600 / 1150 Balance 300 / -475 -600 / -475 Intake: Oral 300 / 675 Output: Urine 600 / 1150 Other: Other Intake Source Patient is NPO # Unmeasured Voids 1 Weight 83 kg Weight Measurement Method Built in [facility] Diagnostic Findings EKG performed this am and reviewed : SR , non specific low amplitude T wave inversions -stable findings (1) Hypertension Hypertension type: unspecified Qualified Code(s): I10 - Essential (primary) hypertension (2) Chest pain Chest pain type: unspecified Qualified Code(s): R07.9 - Chest pain, unspecified (4) Pulmonary embolism Acute cor pulmonale presence: unspecified Chronicity: acute Pulmonary embolism type: unspecified Qualified Code(s): I26.99 - Other pulmonary embolism without acute cor pulmonale
--- NOTE | 2024-07-09 12:12 | Electrocardiogram Report ---
Test Reason : Blood Pressure : */* mmHG Vent. Rate : 71 BPM Atrial Rate : 71 BPM P-R Int : 186 ms QRS Dur : 104 ms QT Int : 428 ms P-R-T Axes : 14 -43 -32 degrees QTcB Int : 465 ms Normal sinus rhythm Left axis deviation Possible Old Anterior infarct (cited on or before 06-Jun-2024) Diffuse Nonspecific T wave abnormality Abnormal ECG When compared with ECG of 08-Jul-2024 05:47, NV interval has decreased Confirmed by Alexander Crowley ([id number]) on 07/09/2024 12:12:06 PM Referred By: REFERRED SELF Confirmed By: Alexander Crowley
--- NOTE | 2024-07-09 15:15 | Myocardial Perfusion Study ---
Date of Service July 09, 2024 Myocardial Perfusion Study [facility] Myocardial Perfusion Study Report 3 procedure: 1. Myocardial perfusion study performed in multiple views/images 2. Lexiscan pharmacologic stress ECG Indications: 1. chest pain, h/o CAD, CABG, abnormal EKG Ordering physician:Dr Daugherty Procedural details: For the stress portion of the study, Lexiscan 0.4 mg was intravenously administered followed by a saline flush. This was followed by 32 mCi of technetium 99m Cardiolite, injected at 12:31 pm on 07/09/2024. 30 minutes following the injection, imaging of the heart was performed in multiple projections. For the rest portion of the study, 11 mCi technetium 99m Cardiolite was injected intravenously at 10:40 am on 07/09/24. 1 hour following the injection, imaging of the heart was performed in the same projections. Lexiscan stress ECG: A pharmacologic stress study was performed with the patient receiving 0.4 mg of IV regadenoson. Resting ECG demonstrated: Sinus rhythm at 75 bpm, with nonspecific T wave changes. Maximum heart rate: 98 bpm Maximal, age-predicted heart rate: 66% Resting blood pressure: 162/105 mmHg Maximum blood pressure: 162/105 mmHg Lowest blood pressure: 159/[address] changes: none Arrhythmia: occasional PVCs Symptoms: no symptoms suggestive of angina Findings: Rotating raw imaging demonstrated no significant lung uptake. There is no significant motion artifact. Heart size appeared normal. Myocardial perfusion demonstrated a small fix apical perfusion defect. Per review of the raw data and the normal gated wall motion, small fixed apical perfusion defect likely related to breast shadow. Ejection fraction: >70% Wall motion: Normal No significant transient ischemic dilation. Impression: 1. There is a small sized, fixed apical perfusion defect. In light of the appearance of the raw data as well as the normal gated wall motion, this is likely felt to be an attenuation artifact related to adjacent breast tissue without evidence of inducible ischemia 2.The left ventricular wall motion is normal, calculated left ventricular ejection fraction by the gated SPECT technique is greater than 70%
--- NOTE | 2024-07-09 15:18 | Communication Note ---
Date of Service: July 09, 2024 Nuclear stress test is negative for ischemia. BP improved. Stable for discharge to home with following medication changes: Coreg 3.125 mg BID replaces metoprolol. 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 Repeat bmp in a week
[2024-07-09] MEDS: REGADENOSON 0.4 MG/5 ML SYR IV ONE (16:29)
[2024-07-09 16:31] VITALS: BP 102/69; PULSE 82; RESP 19; TEMP 97.5
--- NOTE | 2024-07-09 17:01 | Discharge Summary ---
Discharge Summary Date of Service July 09, 2024 delayed entry date of service noted above Principal Dx & Hospital Course #1 = Principal Diagnosis (1) Chest pain: (2) Chills without fever: (3) S/P CABG x 3: Plan Ms. Trujillo is a 74-year-old female with past medical history significant for hyperlipidemia, multinodular thyroid, mild intermittent asthma, seasonal allergic rhinitis, hiatal hernia, hypertension, frequent PVCs, multiple vessel coronary artery disease status post CABG recently, GERD, pulmonary hypertension, CKD stage III, general osteoarthritis of multiple sites, history of C. difficile infection, primary insomnia presenting to the ED with chest pain. Discussed case with Dr Daugherty over phone. Admission for close eval given complex history. ESR 36 and CRP <0.50 #Atypical chest pain trop negative x 2 EKG no acute ischemia, however, diffuse changes noted compared to prior baseline Resolved after nitro Gas Treater consulted- Dr. Daugherty s/p Lexiscan Nuclear Stress Test Cardiology recommendations: Coreg 3.125 mg BID replaces metoprolol. Discharge on HCTZ 25 mg daily (dose of 12.5 mg administered today to be increases to 25 mg at discharge) Continue CARDIOPULMONARY SPECIALIST lisinopril 40 mg daily. Repeat bmp in a week #Uncontrolled HTN #Obstructive CAD s/pCABG X 3 HERNANDEZ to LAD SVG to OM, PDA #HLD performed by Dr. Jay May 15, 2024. 06/13 ECHO with EF 60-65% medications changes noted above BP improved #Elevated glucose #Prediabetes a1c 5.5 #Postoperative paroxysmal atrial fibrillation #Symptomatic premature ventricular complexes Coreg 3.125 mg BID replaces metoprolol. Monitor on tele Continue magnesium supplement #Recent bilateral pulmonary emboli, provoked iso recent cabg diagnosed 06/06 s/p 04/2024 CABG procedure Imaging 07/07 revealed near resolution Continue eliquis #mild intermittent asthma Continue home inhalers #Hiatal hernia #GERD On Protonix #Mood d/o Continue mirtazapine DVT prophylaxis On Eliquis Notes For Next Care Provider Medication Changes From Visit Coreg 3.125 mg BID replaces metoprolol. Discharge on HCTZ 25 mg daily (dose of 12.5 mg administered today to be increases to 25 mg at discharge) Admission HPI Per Admitting Provider Ms. Trujillo is a 74-year-old female with past medical history significant for hyperlipidemia, multinodular thyroid, mild intermittent asthma, seasonal allergic rhinitis, hiatal hernia, hypertension, frequent PVCs, multiple vessel coronary artery disease status post CABG recently, GERD, pulmonary hypertension, CKD stage III, general osteoarthritis of multiple sites, history of C. difficile infection, primary insomnia presenting to the ED with chest pressure. Patient with notable recent medical history. Patient with recent CABG x 3 at [place] at the end of April 2024 c/b post-op atrial fibrillation. Completed c ourse of amiodarone and Lasix. Then patient admitted 06/06-06/08 and found to have acute pulmonary embolism and was placed on Eliquis. Readmission occurred on 06/11-06/14 for symptomatic PVCs in which metoprolol succinate 25 mg twice daily was started. Patient readmitted again on 06/27 in which lisinopril was started, with possibility of adding norvasc. Patient states that for weeks she has experienced persistent chest pressure. It is left-sided/substernal. Not reproducible to palpation. Not worsened on exertion. Patient reports that she sleeps on a wedge at baseline and denies any FAIR/SOB. During exam when laid flat, she notes worsening of chest pressure which improved upon sitting back upward. Patient denies fevers but notes intermittent chills and night sweats. Patient denies cough, urinary or bowel changes, or other acute concerns. Pain was improved with nitro. In the ED, vitals were notable for BP of 130-160s over 90-100s , HR of 60s, and O2 sat of high 90s on room air LABS: UA with microscopic hematuria, covid/flu negative, ddimer 840, bmp WNL, ESR 36, crp <0.50 Imaging revealed: CTA with nearly resolution of pulmonary emboli and no acute emboli noted, residual trace pericardial effusion unchanged from prior imaging EKG on 06/29 reviewed with TWI noted. EKG on arrival 07/07 with diffuse flattening noted. ED interventions: s/p 250cc bolus, tylenol IV, nitro SL Consultants: Discussed with Dr. Daugherty Patient to be admitted to [facility] for further evaluation and management of chest pain Admission Exam Per Admitting Provider GENERAL APPEARANCE: AxOx4, generally well-appearing F, no acute distress. HEENT: NC, AT. MMM. EOMI, clear conjunctiva, oropharynx clear. NECK: Supple without lymphadenopathy. No stiffness or restricted ROM. HEART: Normal rate and regular rhythm, normal S1/S1, no m/r/g; could not appreciate rub, reported pressure increased laying flat however, no overt grimace, sob or other symptoms LUNGS: CTAB, moving air well. No crackles or wheezes are heard. ABDOMEN: Soft, nontender, nondistended with good bowel sounds heard. EXTREMITIES: Without cyanosis, clubbing or edema. NEUROLOGICAL: Grossly nonfocal. Alert and oriented, moving all 4 extremities. CN not formally tested but appear grossly intact. Skin: Warm and dry without any rash. Discharge Exam General- oriented x 3, not in distress, speaks in sentences with no effort or accessory muscle use Eyes- anicteric Neck- no JVD Lungs- clear breath sounds bilaterally, no rales/wheezes Heart- normal rate, regular rhythm; no murmurs Abdomen- normal bowel sounds, nondistended, soft, nontender Extremities- no pretibial edema, no calf tenderness Neuro- alert, oriented x 3; no gross focal neurologic deficits Skin- warm & dry Updated Medication List Medication Instructions Recorded Confirmed Type coenzyme Q10 200 mg capsule (Co 200 mg PO QAM 02/12/19 07/07/24 History Q-10) aspirin 81 mg tablet,delayed 81 mg PO DAILY 08/17/20 07/07/24 History release (Ousmane Low Dose Aspirin) pantoprazole 40 mg tablet,delayed 40 mg PO DAILYBB 08/28/22 07/07/24 History release mirtazapine 15 mg tablet 7.5 mg PO HS 03/04/24 07/07/24 History multivitamin 1 tab PO QAM 03/04/24 07/07/24 History pravastatin 40 mg tablet 40 mg PO HS 03/04/24 07/07/24 History levalbuterol tartrate 45 1 inh inhalation UD PRN Shortness 06/06/24 07/07/24 History mcg/actuation aerosol inhaler Of Breath tramadol 50 mg tablet 25 mg PO Q6H PRN Moderate Pain 06/06/24 07/07/24 History (Scale Score 5-6) apixaban 5 mg tablet (Eliquis) 5 mg PO BID 06/27/24 07/07/24 History magnesium oxide 400 mg (241.3 mg 200 mg PO QAM 06/27/24 07/07/24 History magnesium) tablet lisinopril 20 mg tablet 40 mg PO QAM 07/07/24 07/07/24 History carvedilol 3.125 mg tablet 3.125 mg PO BIDM 30 days #60 tabs 07/09/24 Rx hydrochlorothiazide 25 mg tablet 25 mg PO QAM 30 days #30 tabs 07/09/24 Rx Hospital Stay Data Consultations 07/07/24 18:11 ED Decision to Admit Stat 07/07/24 22:29 Consult Cardiology Routine Diagnostic Imagining Performed 07/07/24 15:20 CT angio chest PE protocol Stat COMPARISON STUDY: Chest CTA 06/06/2024. FINDINGS: Normal caliber thoracic aorta with no evidence for a dissection. The heart remains mildly enlarged. No pleural effusions. The scattered segmental/subsegmental pulmonary emboli seen on the prior study have almost completely resolved in the interval. There are few small linear nonocclusive filling defects remaining consistent with chronic pulmonary emboli. No new filling defects within the pulmonary arteries to suggest an acute pulmonary embolus. No evidence for right-sided heart strain. Trace pericardial effusion, unchanged. Limited views of the upper abdomen demonstrate a normal liver, spleen, and adrenal glands. Normal thyroid gland. Normal esophagus. No mediasti nal or hilar lymphadenopathy. Poststernotomy changes are again noted with progressive lucency at the sternal incision and no significant bony bridging identified. A small amount of retrosternal fluid has improved and suggests a resolving postoperative seroma. No acute fractures within the chest. No pneumothorax. The central airways are patent. Respiratory motion artifact results in suboptimal evaluation the lungs. A few bibasilar linear densities consistent with subsegmental atelectasis. Mosaic attenuation within the lungs consistent with air trapping. No evidence for pulmonary edema. No new focal lung consolidations to suggest a pneumonia. IMPRESSION: 1. Near-complete resolution of the scattered segmental/subsegmental pulmonary emboli with a few small linear nonocclusive chronic emboli remaining. No new filling defects within the pulmonary arteries to suggest an acute pulmonary embolus. 2. Mosaic attenuation within the lungs consistent with air trapping. 3. Bibasilar linear densities favor subsegmental atelectasis. 4. Cardiomegaly and a trace pericardial effusion, unchanged. 5. Poststernotomy changes are again noted with progressive lucency at the sternal incision and no significant bony bridging identified. A small amount of retrosternal fluid has improved and suggests a resolving postoperative seroma. 6. Additional findings as described above. ACT 112: Negative or not required by law. Pending Results Patient Have Any Pending Studies at Discharge: No Discharge Instructions Given to Patient (Per Discharging Provider) PLEASE REFER TO YOUR NEW MEDICATION LIST AND FOLLOW INSTRUCTIONS CAREFULLY. YOUR NEW MEDICATIONS INCLUDE: Carvedilol-blood pressure medication HCTZ-blood pressure medication Stop metoprolol. PLEASE CALL YOUR PRIMARY CARE PHYSICIAN OR RETURN TO THE ER IF WITH WORSENING OF SYMPTOMS, INCLUDING Chest pain, shortness of breath, dizziness, palpitations, etc. FOLLOW UP WITH PRIMARY CARE PHYSICIAN OUTLINED ABOVE. Follow-up with plant safety engineer as scheduled. Total Time Total Time Spent Total Time Spent (In Minutes): 40 minutes
[2024-07-10] MEDS ORDERED: hydroCHLOROthiazide 25 MG TAB PO SCH (09:00)
== END 2024-07-09 19:15 | disposition home or self-care (01) | DRG 313 ==
LOC: ED 11:31 → 4W 11:31 → SUATTDRO 20:04 → 4W 21:21

== ENCOUNTER 2025-07-18 14:31 | Observation (INO) ==
[2025-07-18 15:34] LABS: Hematocrit (blood only) 41.2 % (37.0-47.0); Hemoglobin 13.7 g/dl (12.0-16.0); Immature Granulocytes # (auto) 0.01 K/uL (0.01-0.20); Immature Granulocytes % (auto) 0.1 %; Mean Corpuscular Hemoglobin 29.5 pg (25.0-34.0); Mean Corpuscular Volume 88.6 fL (80.0-100.0); Platelet Count 174 K/uL (130-400); RDW Standard Deviation 42.4 fL (36.4-46.3); Red Blood Count 4.65 M/uL (4.20-5.40); White Blood Count 7.64 K/ul (4.8-10.8)
[2025-07-18 15:51] LABS: Alanine Aminotransferase 15.0 U/L (7-52); Albumin Globulin Ratio 1.3 (0.9-2); Albumin Level 4.7 gm/dl (3.4-5.0); Alkaline Phosphatase 54.0 U/L (34-104); Anion Gap 8.0 (3-11); Bilirubin,Total 0.7 mg/dl (0.2-1.0); Blood Urea Nitrogen 28.0 mg/dl (6-23); Calcium 9.7 mg/dl (8.6-10.3); Carbon Dioxide 26.0 mmol/L (21-32); Chloride 103.0 mmol/L (98-107); Creatinine Clr Calc Pharmacy 37.2 ml/min; Globulin 3.5 gm/dl (2.5-4.0); Glucose 105.0 mg/dl (70-99(Fasting)); Potassium 4.2 mmol/L (3.5-5.1); Sodium 137.0 mmol/L (136-145); Total Protein 8.2 gm/dl (6.0-8.3)
[2025-07-18 16:12] LABS: INR 1.0 (0.9-1.1); Partial Thromboplastin Time 31 Seconds (21-31); Prothrombin Time 11.0 Seconds (9.0-12.0)
--- NOTE | 2025-07-18 16:18 | XRay Report ---
EXAM: X-ray chest one-view portable CLINICAL HISTORY: Chest pain PRIORS: 03/16/2025 TECHNIQUE: Erect portable AP FINDINGS: mildly diminished lung volumes noted. Median sternotomy wires and postsurgical change of the mediastinum noted, unchanged. No airspace consolidation, effusion or congestive changes. Heart size is normal. No pneumothorax. Trachea is patent. Osseous structures demonstrate no acute abnormality. No radiopaque foreign body. IMPRESSION: Diminished lung volumes with no plain film evidence of an acute cardiopulmonary process. Electronically signed by Luciana Kim 07-18-2025 4:16 PM
--- NOTE | 2025-07-18 16:40 | Emergency Department Note ---
Impression & Plan Chest pain ED Provider Note HISTORY OF PRESENT ILLNESS: Patient is a 75-year-old female presenting with chest pain. Patient reports that she has been having constant substernal chest pain for the last 2 weeks. She states that the pain has been a constant pressure-like sensation on the center of her chest. Denies any radiation into the back or into the abdomen. She reports that she intermittently gets sharp stabbing pain in the substernal chest or the left side of her chest. She does have a history of a cardiac bypass. She is on Eliquis. She states that 2 weeks ago she had an x-ray done which was negative. She contacted her express clerk about her symptoms and a CT scan of her chest was performed 3 days ago, but patient has not received results yet. She states that this morning she had a stabbing chest pain on the right substernal region. She denies any associated shortness of breath. Denies any abdominal pain, nausea or vomiting. She denies any lightheadedness or dizziness, but does report that she feels very unsteady on her feet. No reported cough or fevers. ROS: as above PHYSICAL EXAM: Constitutional: Patient appears in no acute distress. HENT: Head: Normocephalic and atraumatic. Eyes: EOMI, PERRL Mouth/Throat: Mucous membranes moist. Neck: Trachea midline. Neck supple. Cardiovascular: RRR, No murmurs, rubs or gallops. Intact distal pulses. Pulmonary/Chest: No respiratory distress. Breath sounds clear and equal bilaterally. No wheezes or rales. Abdominal: Abdomen soft, no tenderness, rebound or guarding. Musculoskeletal: No edema, tenderness or deformity noted. Skin: Warm and dry. No rash, erythema, pallor or cyanosis Psychiatric: Appropriate mood and affect for situation. Neurological: Alert and keenly responsive. CN II-XII grossly intact, moving all extremities equally and fully. MDM: - Vitals signs stable. - History obtained via patient. History as above. - Chronic conditions affecting care: CAD (s/p CABG); GERD; HTN; HLD; valvular heart disease - Differential diagnoses include, but are not limited to: Acute coronary syndrome; pulmonary embolism; dissection; tension pneumothorax; esophageal rupture; pneumonia - Order placed for continuous cardiac monitoring. At this time, monitor showed rate of 75 bpm with normal sinus rhythm, per my interpretation. - External medical records reviewed. Attempted to review results of the CT chest in the outpatient setting. However, CT chest read was not yet completed. - EKG image interpreted by myself showed normal sinus rhythm. Rate 80 bpm. QT 368. No acute ischemic changes. - Laboratory workup interpreted by myself showed normal WBC; stable electrolytes; normal troponin; CKD (Cr 1.39) - CXR image interpreted by myself is negative for pneumonia, per my interpretation. - Patient was offered pain medication in the emergency department, but she declined. However, she does rate her pain a 4 out of 10. - HEART score 5 (History +1 moderately suspicious; EKG +0; Age +2; Risk factors +2; Initial troponin +0), amounting to a moderate score. - Though patient's chest pain sounds unlikely to be ACS, given her 2 weeks of continuous pressure-like sensation and normal troponin in the emergency department, she does have significant risk factors for heart disease and has a history of a CABG. She reports she is unsure when her last echocardiogram was. Did discuss outpatient discharge and follow-up with her express clerk. However, the patient states that she "knows something is wrong" and still is having chest pain. Will discuss case with hospitalist service for further evaluation and management. - Discussion was had with rn case management about patient's case and need for admission - Hospitalist, Dr. Rees, consulted for admission at 16:54. - Patient admitted to [facility] hospitalist service for further evaluation and management. ASSESSMENT AND PLAN: Diagnosis: Chest pain Plan: Admit Past Med/Surg History Problem List (Updated 07/18/25 @ 16:50 by Martha Huffman MD) Chest pain (Acute) Hypertension (Acute) PVCs (premature ventricular contractions) Palpitations Chest pain (Acute) Chills without fever S/P CABG x 3 (Acute) Pulmonary embolism (Acute) Abnormal nuclear stress test Family history of coronary artery disease (Acute) Chest pain (Acute) Chest pain Acute lower GI bleeding Rectal bleed (Acute) Bronchitis (Acute) Rectal bleeding Gastroenteritis (Acute) History of diverticulitis (Chronic) Encounter for pre-operative examination Diarrhea (Acute) Nausea and vomiting (Acute) Anterior T wave inversion (Acute) Acute electrocardiogram changes (Acute) Abdominal pain, epigastric (Acute) Discharge planning issues Encounter for pre-operative examination GERD (gastroesophageal reflux disease) (Chronic) Osteoarthritis (Chronic) Medical History CAD (coronary artery disease), [place] coronary artery Hypertensive emergency Asthma RARELY USES PRN INH HTN (hypertension) History of basal cell carcinoma Diverticular disease Valvular heart disease "LEAKY VALVE" - FOLLOWS W/ DR. DE SANTIAGO Hypertension Hyperlipidemia Surgical History S/P CABG (coronary artery bypass graft) History of cataract surgery LEFT History of basal cell carcinoma (BCC) excision History of hysterectomy History of esophagogastroduodenoscopy (EGD) History of colonoscopy Family History Sister Diabetes Brother Diabetes Other Heart disease Hypertension Social History Smoking Status: Never smoker Second Hand Exposure: No; Do You Dip or Chew Tobacco: No; Hx Alcohol Use: No Hx Substance Use: No Preferred Language: Indonesian Communication Ability: Effective Visual Impairment: Limited Hearing Ability: Normal Base Wad Operator Adjuster Required: No Beliefs That Will Affect Care: None marital status: Current Living Situation: Spouse Current Living Situation Comment: With , own home, [address] Feels Safe at Home: Yes Assistive Devices: Cane Allergies Allergies Allergy/AdvReac Type Severity Reaction Status Date / Time Sulfa (Sulfonamide Allergy Intermediate Hives Verified 06/27/24 21:32 Antibiotics) codeine AdvReac Intermediate "deathly Verified 06/27/24 21:32 sick and I throw up" levofloxacin [From Levaquin] AdvReac Mild Nausea Verified 06/27/24 21:32 Home Meds Home Medications Medication Instructions Recorded Confirmed aspirin 81 mg tablet,delayed 81 mg PO DAILY 08/17/20 07/18/25 release (Ousmane Low Dose Aspirin) pantoprazole 40 mg tablet,delayed 40 mg PO DAILYBB 08/28/22 07/18/25 release mirtazapine 15 mg tablet 7.5 mg PO HS 03/04/24 07/18/25 multivitamin 1 tab PO QAM 03/04/24 07/18/25 pravastatin 40 mg tablet 40 mg PO HS 03/04/24 07/18/25 apixaban 5 mg tablet (Eliquis) 5 mg PO BID 06/27/24 07/18/25 magnesium oxide 400 mg (241.3 mg 400 mg PO QAM 06/27/24 07/18/25 magnesium) tablet lisinopril 20 mg tablet 20 mg PO QAM 07/07/24 07/18/25 acetaminophen 500 mg capsule 1,000 mg PO BID PRN Pain 07/18/25 07/18/25 carvedilol 6.25 mg tablet 6.25 mg PO BID 07/18/25 07/18/25 coQ10 (ubiquinol) 200 mg capsule 200 mg PO DAILY 07/18/25 07/18/25 hydrochlorothiazide 25 mg tablet 12.5 mg PO QAM 07/18/25 07/18/25 Previous Rx's Medication Instructions Recorded phenylephrine HCl 0.25 % rectal 1 supp RI BID PRN hemorrhoids #12 09/06/24 suppository ea Results & Data (ED) Vital Signs Vital Signs - 24 hr 07/18/25 14:44 07/18/25 15:33 07/18/25 15:34 Temperature 36.6 C Temperature Source Temporal Artery Scan Pulse Rate 80 74 Pulse Rate [Apical] 79 Respiratory Rate 17 18 21 Respiratory Effort / Characteristics Non-Labored Spontaneous Respiratory Depth Normal Respiratory Pattern Regular Blood Pressure 139/92 120/84 Blood Pressure [Left Arm] 120/84 Blood Pressure Mean 107 93 Blood Pressure Mean [Left Arm] 96 Pulse Oximetry 99 99 98 Oxygen Delivery Method Room Air Room Air Sepsis Recent Fever Within 48 Hours No Sepsis New/Unexplained Change in Mental Status N/A Sepsis Action Taken by Nursing No Action Required 07/18/25 15:46 07/18/25 16:00 Temperature Temperature Source Pulse Rate 74 72 Pulse Rate [Apical] Respiratory Rate 17 Respiratory Effort / Characteristics Respiratory Depth Respiratory Pattern Blood Pressure 116/82 Blood Pressure [Left Arm] Blood Pressure Mean 91 Blood Pressure Mean [Left Arm] Pulse Oximetry 98 Oxygen Delivery Method Sepsis Recent Fever Within 48 Hours Sepsis New/Unexplained Change in Mental Status Sepsis Action Taken by Nursing Laboratory Data 07/18/25 15:18 07/18/25 15:18 Lab Results 07/18/25 Range/Units 15:18 WBC 7.64 (4.8-10.8) K/ul RBC 4.65 (4.20-5.40) M/uL Hgb 13.7 (12.0-16.0) g/dl Hct 41.2 (37.0-47.0) % MCV 88.6 (80.0-100.0) fL MCH 29.5 (25.0-34.0) pg MCHC 33.3 (32.0-36.0) g/dL RDW Std Deviation 42.4 (36.4-46.3) fL RDW Coeff of [place] 13.0 (11.5-14.5) % Plt Count 174 (130-400) K/uL MPV 10.6 (9.4-12.4) fL Immature Gran % (Auto) 0.1 % Neut % (Auto) 72.6 % Lymph % (Auto) 21.1 % [place] % (Auto) 4.8 % Eos % (Auto) 1.0 % Baso % (Auto) 0.4 % Neut # (Auto) 5.54 (1.40-6.50) K/uL Lymph # (Auto) 1.61 (1.20-3.40) K/uL [place] # (Auto) 0.37 (0.11-0.59) K/uL Eos # (Auto) 0.08 (0.00-0.50) K/uL Baso # (Auto) 0.03 (0.00-0.20) K/uL Immature Gran # (Auto) 0.01 (0.01-0.20) K/uL PT 11.0 (9.0-12.0) Seconds INR 1.0 (0.9-1.1) APTT 31 (21-31) Seconds PTT Ratio 1.2 Sodium 137 (136-145) mmol/L Potassium 4.2 (3.5-5.1) mmol/L Chloride 103 (98-107) mmol/L Carbon Dioxide 26 (21-32) mmol/L Anion Gap 8 (3-11) BUN 28 H (6-23) mg/dl Creatinine 1.39 H (0.6-1.2) mg/dl Est Cr Clr Drug Dosing 37.2 ml/min eGFR 39.82 BUN/Creatinine Ratio 20.1 H (10-20) Glucose 105 H (70-99(Fasting)) mg/dl Calcium 9.7 (8.6-10.3) mg/dl Total Bilirubin 0.7 (0.2-1.0) mg/dl AST 19 (13-39) U/L ALT 15 (7-52) U/L Alkaline Phosphatase 54 (34-104) U/L Troponin I High Sens 6.7 (0-14) pg/ml Total Protein 8.2 (6.0-8.3) gm/dl Albumin 4.7 (3.4-5.0) gm/dl Globulin 3.5 (2.5-4.0) gm/dl Albumin/Globulin Ratio 1.3 (0.9-2) Imaging Data Radiologist's Impression: Chest X-Ray 07/18/25 14:48 EXAM: X-ray chest one-view portable CLINICAL HISTORY: Chest pain PRIORS: 03/16/2025 TECHNIQUE: Erect portable AP FINDINGS: mildly diminished lung volumes noted. Median sternotomy wires and postsurgical change of the mediastinum noted, unchanged. No airspace consolidation, effusion or congestive changes. Heart size is normal. No pneumothorax. Trachea is patent. Osseous structures demonstrate no acute abnormality. No radiopaque foreign body. IMPRESSION: Diminished lung volumes with no plain film evidence of an acute cardiopulmonary process. Electronically signed by Luciana Kim 07-18-2025 4:16 PM Discharge Plan Visit Data Chief Complaint: Chest Pain Stated Complaint: CHEST PAIN DIZZY ED Provider: Martha Huffman Discharge Problem: Chest pain Condition: Fair Forms Stand Alone Forms: [facility] Prescriptions Prescriptions: No Action aspirin [Ousmane Low Dose Aspirin] 81 mg Tablet,Delayed Release (Dr/Ec) 81 mg PO DAILY pantoprazole 40 mg tablet,delayed release (DR/EC) 40 mg PO DAILYBB multivitamin Tablet 1 tab PO QAM pravastatin 40 mg tablet 40 mg PO HS mirtazapine 15 mg tablet 7.5 mg PO HS Eliquis 5 mg tablet 5 mg PO BID magnesium oxide 400 mg (241.3 mg magnesium) tablet 400 mg PO QAM lisinopril 20 mg tablet 20 mg PO QAM phenylephrine HCl 0.25 % suppository 1 supp RI BID PRN (Reason: hemorrhoids) Qty: 12 0RF carvedilol 6.25 mg tablet 6.25 mg PO BID hydrochlorothiazide 25 mg tablet 12.5 mg PO QAM coQ10 (ubiquinol) 200 mg Capsule 200 mg PO DAILY acetaminophen 500 mg Capsule 1,000 mg PO BID PRN (Reason: Pain) Referrals Referrals: Jasmina Taylor MD [Primary Care Provider] -
--- NOTE | 2025-07-18 16:51 | History & Physical Report ---
Date of Service July 18, 2025 Assessment & Plan (1) Chest pain: Plan Ms. Khan is a 75 year old with hypertension, CAD s/p three-vessel CABG 04/2024, pulmonary embolism 05/2024, hyperlipidemia, symptomatic PVCs, gastroparesis, nephrolithiasis, chronic back pain, post op A Fib presented to be admitted to med tele for further evaluation and management of chest pain. Patient does report pain in sternum back on 06/04/2025 with PCP on exam. Also noted multiple admissions s/p CABG for recurrent chest discomfort. There have been multiple admissions for recurrent chest discomfort with negative ischemic work-up since CABG. Nuclear stress test (07/08/24) negative for inducible ischemia. High suspicion that chest discomfort is musculoskeletal etiology. It should be noted that CT Chest (08/18/24) showed partial healing of a non- displaced fracture of the lower sternum, patient underwent repeat Chest CT (03/16/25) with no acute abnormalities. CT from 07/16 pending. #Atypical Chest pain, ACS r/o nonexertional, sternal pain at site of surgical procedure, would suspect postsurgical persistent pain Patient very concerned Will trend trop x 3 Will monitor on obs on tele Agreeable to trial myoflex Would consider addition of duloxetine v gabapentin for neuropathic like symptoms ECHO ordered CT completed on Saturday as OP--given low suspicion for infection or other etiology, patient discussed understanding holding of further imaging and a waiting results of OP scan #CKD IIIa creatinine running 1.3-1.4, for a change in GFR of approximately 30 mL/min in the course of the year. renal function at baseline tend bmp #Essential hypertension with symptomatic hypotension recent reduction in HCTZ and increase in coreg (however, reports not tolerating 6.25 coreg) continue hctz continue coreg at 3.125 bid continue lisinopril monitor BP #Nontoxic multinodular goiter Thyroid function monitoring due. Last ultrasound in June 2023, which was stable TSH 1.97 05/2025 #Primary insomnia continue Mirtazapine 7.5 mg qhs #Chronic anticoagulation therapy #Hx of post opatrial fibrillation #Hx of pulmonary embolism has not missed eliquis dosing Continue Eliquis admit med/tele DVT eliquis PCP Dr. Taylor Admission and Anticipated Discharge Date Admission Date: Time spent evaluating patient, direct bedside care, chart review, placing orders, interpretation of diagnostic studies, discussion with consultants, patient, and family members, as well as other required patient management activities is 75 minutes. History of Present Illness Chief Complaint: chest pain Primary Care Provider: Jasmina Taylor MD Ms. Khan is a 75 year old with hypertension, CAD s/p three-vessel CABG 04/2024, pulmonary embolism 05/2024, hyperlipidemia, symptomatic PVCs, gastroparesis, nephrolithiasis, chronic back pain, post op A Fib presented to [facility] ED due to 2 weeks of sternal chest pain. Patient states that since her CABG she has experienced some discomfort, but reports that in the last 2 weeks she has noted intermittent chest pain along the sternotomy site. 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 She denies FAIR, symptoms on exertion, palpiataions related to this pain, radiation down the arm, diaphoresis during episodes, nausea during episodes. There is a persistent discomfort sternally, followed by sharp stabbing sensations or a "burning." She denies fevers, chills, changes to skin over sternotomy site. Patient denies symptoms at time of exam. Patient reports notable concern over symptoms and doesn't feel safe to go home at this time. Patient with CT scan completed on Saturday and would like to await to see if test results before obtaining additional imaging. Patient states that she recently had a decrease in her HCTZ and increase in her Coreg; however, she states she feels dizzy and notes that when her SBP is around 100 she has just been taking coreg at 3.125 raher than the 6.25. She denies symptoms above recreated by relative hypotension. In the ED, vitals were notable for BP of 100-120s, HR of 70s, and O2 sat of high 90s-100 on RA Imaging revealed normal CXR EKG TWI noted, consistent with EKG from 02/2025 ED interventions: none Patient to be admitted to [facility] for further evaluation and management of chest pain. Allergies Allergy/AdvReac Type Severity Reaction Status Date / Time Sulfa (Sulfonamide Allergy Intermediate Hives Verified 06/27/24 21:32 Antibiotics) codeine AdvReac Intermediate "deathly Verified 06/27/24 21:32 sick and I throw up" levofloxacin [From Levaquin] AdvReac Mild Nausea Verified 06/27/24 21:32 Home Medications Medication Instructions Recorded Confirmed Type aspirin 81 mg tablet,delayed 81 mg PO DAILY 08/17/20 07/18/25 History release (Ousmane Low Dose Aspirin) pantoprazole 40 mg tablet,delayed 40 mg PO DAILYBB 08/28/22 07/18/25 History release mirtazapine 15 mg tablet 7.5 mg PO HS 03/04/24 07/18/25 History multivitamin 1 tab PO QAM 03/04/24 07/18/25 History pravastatin 40 mg tablet 40 mg PO HS 03/04/24 07/18/25 History apixaban 5 mg tablet (Eliquis) 5 mg PO BID 06/27/24 07/18/25 History magnesium oxide 400 mg (241.3 mg 400 mg PO QAM 06/27/24 07/18/25 History magnesium) tablet lisinopril 20 mg tablet 20 mg PO QAM 07/07/24 07/18/25 History phenylephrine HCl 0.25 % rectal 1 supp KS BID PRN hemorrhoids #12 09/06/24 07/18/25 Rx suppository ea acetaminophen 500 mg capsule 1,000 mg PO BID PRN Pain 07/18/25 07/18/25 History carvedilol 6.25 mg tablet 6.25 mg PO BID 07/18/25 07/18/25 History coQ10 (ubiquinol) 200 mg capsule 200 mg PO DAILY 07/18/25 07/18/25 History hydrochlorothiazide 25 mg tablet 12.5 mg PO QAM 07/18/25 07/18/25 History Past Med/Surg History Problem List (Updated 07/18/25 @ 16:50 by Martha Huffman MD) Chest pain (Acute) Hypertension (Acute) PVCs (premature ventricular contractions) Palpitations Chest pain (Acute) Chills without fever S/P CABG x 3 (Acute) Pulmonary embolism (Acute) Abnormal nuclear stress test Family history of coronary artery disease (Acute) Chest pain (Acute) Chest pain Acute lower GI bleeding Rectal bleed (Acute) Bronchitis (Acute) Rectal bleeding Gastroenteritis (Acute) History of diverticulitis (Chronic) Encounter for pre-operative examination Diarrhea (Acute) Nausea and vomiting (Acute) Anterior T wave inversion (Acute) Acute electrocardiogram changes (Acute) Abdominal pain, epigastric (Acute) Discharge planning issues Encounter for pre-operative examination GERD (gastroesophageal reflux disease) (Chronic) Osteoarthritis (Chronic) Medical History CAD (coronary artery disease), torres martinez coronary artery Hypertensive emergency Asthma RARELY USES PRN INH HTN (hypertension) History of basal cell carcinoma Diverticular disease Valvular heart disease "LEAKY VALVE" - FOLLOWS W/ DR. DE SANTIAGO Hypertension Hyperlipidemia Surgical History S/P CABG (coronary artery bypass graft) History of cataract surgery LEFT History of basal cell carcinoma (BCC) excision History of hysterectomy History of esophagogastroduodenoscopy (EGD) History of colonoscopy Family History Sister Diabetes Brother Diabetes Other Heart disease Hypertension Social History Smoking Status: Never smoker Second Hand Exposure: No; Do You Dip or Chew Tobacco: No; Hx Alcohol Use: No Hx Substance Use: No Preferred Language: Lao Communication Ability: Effective Visual Impairment: Limited Hearing Ability: Normal Coremaker Helper Required: No Beliefs That Will Affect Care: None marital status: Current Living Situation: Spouse Current Living Situation Comment: With , own home, [address] Feels Safe at Home: Yes Assistive Devices: Cane Review of Systems Review of Systems: Constitutional: (-) fever/chills, (-) recent loss of weight, (-) appetite changes, (-) night sweats. Head: (-) headache, (-) dizziness. Eye: (-) blurring of vision, (-) double vision, (-) redness. Ear: (-) hearing loss, (-) discharge, (-) vertigo Nose: (-) discharge, (-) bleeding, (-) congestion, (-) post nasal drip. Throat: (-) sore throat, (-) hoarseness of voice, (-) odynophagia. Cardiovascular: (+) chest pain, (-) palpitations, (-) syncope, (-) orthopnea, (- ) PND, (-) leg swelling. Respiratory: (-) shortness of breath, (-) cough, (-) wheezing, (-) hemoptysis. Neuro: (-) weakness in extremities, (-) numbness, (-) tingling, (-) tremor. Gastrointestinal: (-) belly pain, (-) belly distension, (-) nausea, (-) vomiting, (-) diarrhea, (+) chronic constipation Genitourinary: (-) hematuria, (-) dysuria, (-) polyuria, (-) hesitancy, (-) frequency, (-) urinary incontinence. Musculoskeletal: (-) myalgia, (-) arthralgia. Skin: (-) rashes. Endocrine: (-) heat/cold intolerance. Psychiatry: (-) depression, (-) hallucination. Physical Exam Physical Exam: GENERAL APPEARANCE: AxOx4, generally well-appearing F, no acute distress. HEENT: NC, AT. MMM. EOMI, clear conjunctiva, oropharynx clear. NECK: Supple without lymphadenopathy. No stiffness or restricted ROM. HEART: Normal rate and regular rhythm, normal S1/S1, no m/r/g, sternotomy scar with well healing surgical incision, no tenderness on exam LUNGS: CTAB, moving air well. No crackles or wheezes are heard. ABDOMEN: Soft, nontender, nondistended with good bowel sounds heard. BACK: No CVAT, no obvious deformity. EXTREMITIES: Without cyanosis, clubbing or edema. NEUROLOGICAL: Grossly nonfocal. Alert and oriented, moving all 4 extremities. CN not formally tested but appear grossly intact. Skin: Warm and dry without any rash. Results & Data Results & Data Vital Signs (Past 12 Hours) Vital Signs Temp Pulse Pulse Resp BP BP Pulse Ox 07/18/25 15:46 74 07/18/25 15:34 79 21 120/84 98 07/18/25 14:44 36.6 C 80 17 139/92 99 O2 Del Method 07/18/25 15:46 07/18/25 15:34 Room Air 07/18/25 14:44 Room Air Laboratory Results Short CBC 07/18/25 Range/Units 15:18 WBC 7.64 (4.8-10.8) K/ul Hgb 13.7 (12.0-16.0) g/dl Hct 41.2 (37.0-47.0) % Plt Count 174 (130-400) K/uL BMP 07/18/25 15:18 Sodium 137 Potassium 4.2 Chloride 103 Carbon Dioxide 26 BUN 28 H Creatinine 1.39 H Glucose 105 H Calcium 9.7 Liver Function 07/18/25 Range/Units 15:18 Total Bilirubin 0.7 (0.2-1.0) mg/dl AST 19 (13-39) U/L ALT 15 (7-52) U/L Alkaline Phosphatase 54 (34-104) U/L Albumin 4.7 (3.4-5.0) gm/dl
[2025-07-18] MEDS ORDERED: POLYETHYLENE (MIRALAX) 17 GM PACK PO PRN (18:27)
[2025-07-18] MEDS ORDERED: ALUMINUM/MAGNESIUM SUSP 30 ML UDC PO PRN (18:27)
[2025-07-18] MEDS ORDERED: NITROGLYCERIN SL 0.4 MG/TAB TAB SL PRN (18:27)
[2025-07-18] MEDS ORDERED: ACETAMINOPHEN 500 MG TAB PO PRN (18:38)
[2025-07-18] MEDS ORDERED: HYDROCORTISONE ACETATE 25 MG SUPP PR PRN (18:49)
[2025-07-18] MEDS: TROLAMINE SALICYLATE 10% CRM 255 APPLN/85 GM TUBE EXT SCH (19:40)
[2025-07-18] MEDS: MIRTAZAPINE TAB 15 MG TAB PO SCH (19:41)
[2025-07-18] MEDS: PRAVASTATIN SOD 40 MG TAB PO SCH (19:41)
[2025-07-18] MEDS: APIXABAN 5 MG TABLET PO SCH (19:41)
--- NOTE | 2025-07-18 21:13 | Electrocardiogram Report ---
Test Reason : Blood Pressure : */* mmHG Vent. Rate : 80 BPM Atrial Rate : 80 BPM P-R Int : 180 ms QRS Dur : 104 ms QT Int : 368 ms P-R-T Axes : 6 -71 10 degrees QTcB Int : 424 ms Normal sinus rhythm Left axis deviation T wave abnormality, consider anterior ischemia Abnormal ECG When compared with ECG of 16-Mar-2025 19:39, T wave inversion now evident in Anterior leads Confirmed by Andi Siddiqui ([id number]) on 07/18/2025 9:12:41 PM Referred By: Confirmed By: Andi Siddiqui
[2025-07-19 07:37] VITALS: RESP 18; TEMP 97.7
[2025-07-19] MEDS: hydroCHLOROthiazide 25 MG TAB PO SCH (08:30)
[2025-07-19] MEDS: ASPIRIN 81 MG ECTAB PO SCH (08:30)
[2025-07-19] MEDS: MAGNESIUM OXIDE 400 MG TAB PO SCH (08:31)
[2025-07-19] MEDS: MULTIVITAMIN TAB PO SCH (08:31)
[2025-07-19 08:34] LABS: Hematocrit (blood only) 39.6 % (37.0-47.0); Hemoglobin 13.1 g/dl (12.0-16.0); Mean Corpuscular Hemoglobin 29.6 pg (25.0-34.0); Mean Corpuscular Volume 89.6 fL (80.0-100.0); Platelet Count 143 K/uL (130-400); RDW Standard Deviation 43.0 fL (36.4-46.3); Red Blood Count 4.42 M/uL (4.20-5.40); White Blood Count 5.44 K/ul (4.8-10.8)
[2025-07-19 08:48] LABS: Anion Gap 7.0 (3-11); Blood Urea Nitrogen 25.0 mg/dl (6-23); Calcium 9.1 mg/dl (8.6-10.3); Carbon Dioxide 25.0 mmol/L (21-32); Chloride 107.0 mmol/L (98-107); Creatinine Clr Calc Pharmacy 42.8 ml/min; Glucose 92.0 mg/dl (70-99(Fasting)); Magnesium 2.1 mg/dl (1.7-2.4); Potassium 4.0 mmol/L (3.5-5.1); Sodium 139.0 mmol/L (136-145)
[2025-07-19 11:26] VITALS: O2SAT 96
--- NOTE | 2025-07-19 11:51 | Hospitalist Progress Note ---
Date of Service July 19, 2025 Assessment & Plan (1) Chest pain: (2) Atypical chest pain: (3) Hypertension: (4) S/P CABG x 3: (5) GERD (gastroesophageal reflux disease): (6) Hyperlipidemia: Plan Ms. Khan is a 75 year old with hypertension, CAD s/p three-vessel CABG 04/2024, pulmonary embolism 05/2024, hyperlipidemia, symptomatic PVCs, gastroparesis, nephrolithiasis, chronic back pain, post op A Fib presented to be admitted to [facility] for further evaluation and management of chest pain. Patient does report pain in sternum back on 06/04/2025 with PCP on exam. Also noted multiple admissions s/p CABG for recurrent chest discomfort. There have been multiple admissions for recurrent chest discomfort with negative ischemic work-up since CABG. Nuclear stress test (07/08/24) negative for inducible ischemia. High suspicion that chest discomfort is musculoskeletal etiology. It should be noted that CT Chest (08/18/24) showed partial healing of a non- displaced fracture of the lower sternum, patient underwent repeat Chest CT (03/16/25) with no acute abnormalities. CT from 07/16 showed a few lung nodules that needs to be followed up as an outpatient with repeat CT scan as advised. Atypical Chest pain, ACS r/o Nonexertional, sternal pain at site of surgical procedure, would suspect postsurgical persistent pain Patient very concerned Serial troponins are negative for any ACS Has significant EKG findings with ST depression and T wave inversion in anterior leads ECHO is showing- LV is normal in size, mild concentric LVH, septal motion is consistent with conduction abnormality, no regional wall motion abnormalities, EF 60 to 65%, grade 1 diastolic dysfunction, aortic valve sclerosis mild without significant aortic valvular stenosis, trace AR,trace MR and trace TR. Doppler findings do not suggest pulmonary hypertension Given the history of CABG and ongoing chest pain and EKG changes will ask cardiology to evaluate Appreciate cardiology input and recommendation She can be discharged and will have a follow-up appointment with the mass spectrometry specialist as an outpatient Abnormal CT of the chest And new left upper lobe solid nodule of 3 mm - 12-month CT follow-up was advised Any new right upper lobe ground glass nodule measuring 6 mm - [address] of the chest was requested for follow-up And new additional sub-6 mm solid pulm nodules are not significantly changed Will need follow-up as an outpatient with repeat CT as advised #CKD IIIa Creatinine running 1.3-1.4, for a change in GFR of approximately 30 mL/min in the course of the year. Renal function at baseline Creatinine shows mild improvement has 1 point1.21 Essential hypertension with symptomatic hypotension Recent reduction in HCTZ and increase in coreg (however, reports not tolerating 6.25 coreg) Continue hctz Continue coreg at 3.125 bid Continue lisinopril Her blood pressure remains stable at 123/82 Nontoxic multinodular goiter Thyroid function monitoring due. Last ultrasound in June 2023, which was stable TSH 1.97 05/2025 Primary insomnia continue Mirtazapine 7.5 mg qhs #Chronic anticoagulation therapy #Hx of post opatrial fibrillation #Hx of pulmonary embolism has not missed eliquis dosing Continue Eliquis admit med/tele DVT eliquis PCP Dr. Taylor Admission and Anticipated Discharge Date Admission Date: July 18, 2025 Subjective 07/19/2025 The patient was seen and examined in medical telemetry unit She has been having chest pain for the last 2 weeks She has been to [facility] mass spectrometry specialist at [facility] and had a CAT scan of the chest done that was fairly unremarkable for any acute symptoms Continues to have occasional chest pain without any associated symptoms She remains free from any pain this morning Review of Systems Review of Systems: All systems reviewed and are unremarkable except as noted below Physical Exam Physical Exam: Lying in bed without any acute distress Constitutional: well developed, well nourished and + obese; not ill appearing Eyes: PERRL, conjunctivae normal, anicteric sclerae ENMT: external ear and nose normal, oropharynx normal Neck: trachea midline, no thyromegaly Respiratory: no respiratory distress Auscultation: lungs clear to auscultation bilaterally Cardiovascular: Rate/Rhythm: regular rate and regular rhythm; not tachycardic Heart Sounds: normal S1 and normal S2; no murmur Extremities: no edema Gastrointestinal (Abdomen): Inspection/Auscultation: normal bowel sounds; abdomen not distended Percussion/Palpation: abdomen soft; abdomen nontender Musculoskeletal: No acute arthritis involving any of the joint Neurologic: normal touch/pain/proprioception and moves all extremities; no focal motor deficits Lymphatic: no cervical or axillary lymphadenopathy Results & Data Results & Data Vital Signs (Past 12 Hours) Vital Signs Temp Pulse Pulse Pulse Resp BP BP 07/19/25 11:25 36.5 C 69 18 123/82 07/19/25 11:08 07/19/25 07:36 36.5 C 66 18 112/75 07/19/25 07:07 67 07/19/25 03:51 36.6 C 80 16 122/85 07/18/25 23:47 36.4 C L 58 L 16 121/81 Pulse Ox O2 Del Method 07/19/25 11:25 96 Room Air 07/19/25 11:08 Room Air 07/19/25 07:36 98 Room Air 07/19/25 07:07 07/19/25 03:51 95 Room Air 07/18/25 23:47 97 Room Air Laboratory Results Short CBC 07/18/25 07/19/25 Range/Units 15:18 08:16 WBC 7.64 5.44 (4.8-10.8) K/ul Hgb 13.7 13.1 (12.0-16.0) g/dl Hct 41.2 39.6 (37.0-47.0) % Plt Count 174 143 (130-400) K/uL BMP 07/18/25 07/19/25 15:18 08:16 Sodium 137 139 Potassium 4.2 4.0 Chloride 103 107 Carbon Dioxide 26 25 BUN 28 H 25 H Creatinine 1.39 H 1.21 H Glucose 105 H 92 Calcium 9.7 9.1 Liver Function 07/18/25 Range/Units 15:18 Total Bilirubin 0.7 (0.2-1.0) mg/dl AST 19 (13-39) U/L ALT 15 (7-52) U/L Alkaline Phosphatase 54 (34-104) U/L Albumin 4.7 (3.4-5.0) gm/dl Medications Administered Current Inpatient Medications Acetaminophen (Acetaminophen 500 Mg Tab) 1,000 mg PO TID PRN PRN Reason: Pain Stop: 08/17/25 18:37 Al Hydrox/Mg Hydrox/Simethicone (Aluminum/Magnesium Susp 30 Ml Udc) 15 ml PO Q4H PRN PRN Reason: Dyspepsia Stop: 08/17/25 18:26 Apixaban (Apixaban 5 Mg Tablet) 5 mg PO BID CESAR Stop: 08/17/25 20:59 Last Admin: 07/19/25 08:30 Dose: 5 mg Aspirin (Aspirin 81 Mg Ectab) 81 mg PO DAILY CESAR Stop: 08/18/25 08:59 Last Admin: 07/19/25 08:30 Dose: 81 mg Carvedilol (Carvedilol 3.125 Mg Tab) 3.125 mg PO BID CESAR Stop: 08/17/25 20:59 Last Admin: 07/19/25 08:30 Dose: 3.125 mg Hydrochlorothiazide (Hydrochlorothiazide 25 Mg Tab) 12.5 mg PO QAM [facility] Stop: 08/18/25 08:59 Last Admin: 07/19/25 08:30 Dose: 12.5 mg Hydrocortisone (Hydrocortisone Acetate 25 Mg Supp) 25 mg UT BID PRN PRN Reason: hemorrhoids Stop: 08/17/25 18:48 Lisinopril (Lisinopril 20 Mg Tab) 20 mg PO QAM [facility] Stop: 08/18/25 08:59 Last Admin: 07/19/25 08:31 Dose: 20 mg Magnesium Oxide (Magnesium Oxide 400 Mg Tab) 400 mg PO QAM [facility] Stop: 08/18/25 08:59 Last Admin: 07/19/25 08:31 Dose: 400 mg Mirtazapine (Mirtazapine Tab 15 Mg Tab) 7.5 mg PO HS [facility] Stop: 08/17/25 20:59 Last Admin: 07/18/25 19:41 Dose: 7.5 mg Multivitamins (Multivitamin Tab) 1 tab PO QAM [facility] Stop: 08/18/25 08:59 Last Admin: 07/19/25 08:31 Dose: 1 tab Nitroglycerin (Nitroglycerin Sl 0.4 Mg/Tab Tab) 0.4 mg SL Q5M PRN PRN Reason: Chest Pain Stop: 08/17/25 18:26 Pantoprazole Sodium (Pantoprazole 40 Mg Tab) 40 mg PO DAILYBB [facility] Stop: 08/18/25 06:29 Last Admin: 07/18/25 19:41 Dose: 40 mg Polyethylene Glycol (Polyethylene (Miralax) 17 Gm Pack) 17 gm PO DAILY PRN PRN Reason: Constipation Stop: 08/17/25 18:26 Pravastatin Sodium (Pravastatin Sod 40 Mg Tab) 40 mg PO HS [facility] Stop: 08/17/25 20:59 Last Admin: 07/18/25 19:41 Dose: 40 mg Trolamine Salicylate (Trolamine Salicylate 10% Crm 255 Appln/85 Gm Tube) 1 appln EXT Q8H [facility] Stop: 08/17/25 17:29 Last Admin: 07/19/25 08:31 Dose: 1 appln (3) Hypertension Hypertension type: unspecified Qualified Code(s): I10 - Essential (primary) hypertension
--- NOTE | 2025-07-19 12:19 | Cardiology Consultation ---
Date of Consultation July 19, 2025 Assessment & Plan (1) Atypical chest pain: (2) Hypertension: (3) S/P CABG x 3: (4) RBBB (right bundle branch block with left anterior fascicular block): Plan 75-year-old female presented with chest pains atypical for angina with sharp j abbing pains very fleeting in nature at lower end of sternal incision. Patient previously evaluated for symptoms similar to these over the last 6 months studies including stress nuclear imaging without ischemia. Echocardiograms without effusion or wall motion abnormality. Laboratory studies once again negative for ischemia by troponin. EKG is notable for new conduction changes with right bundle branch block superimposed on prior borderline left anterior fascicular block. Recent increase in beta-kelly noted Physical exam notable for sternal tenderness Impression: 1. Atypical chest pain sharp fleeting sensation worse with movement likely secondary to sternal complaints. 2. New right bundle branch block possibly due to increased beta-kelly therapy with underlying conduction system disease. Would reduce carvedilol back to 3.125 mg twice per day. 3. Labile hypertension. Add amlodipine 2.5 mg p.o. nightly History of Present Illness Reason for Consultation: Chest pain, coronary artery disease, abnormal EKG Requesting Physician: Dr. Worrell Attending Physician: Gibson Worrell MD History of Present Illness Patient is a 75-year-old female with ongoing cardiac complaints as below 1. Coronary artery disease three-vessel 95% proximal LAD, 80% mid RCA 50% proximal OM2 a. Status post CABG x3 with HERNANDEZ-LAD, SVG-OM, PDA (Dr. Jay; 05/15/24) 2. Postoperative paroxysmal atrial fibrillation without recurrence - amiodarone discontinued 3. Pulmonary embolism (diagnosed 06/06/24) in setting of post-op immobilization 4. Symptomatic PVCs 5. Hyperlipidemia 6. HTN 7. Persistent sternal discomfort secondary to nonhealing lower sternal fracture Patient presents now for further evaluation after developing sharp knifelike stabbing discomfort with movement. Has been having intermittently since surgical bypass with sternal fracture noted. Symptoms appeared more concerning but not associated with chest pressure, diaphoresis. Episodes very fleeting in nature less than seconds. In the past patient has used partial dose tramadol for symptoms with relief Recent history notable for elevated blood pressures and variable renal function.. Carvedilol increased on 07/05/2025 Patient denies other complaints. Specifically notes no edema, shortness of breath, tachypalpitations, syncope or near syncope. No fevers chills or unexplained infections. No worsening cough Mild tenderness at the base of the sternum Allergies Allergy/AdvReac Type Severity Reaction Status Date / Time Sulfa (Sulfonamide Allergy Intermediate Hives Verified 06/27/24 21:32 Antibiotics) codeine AdvReac Intermediate "deathly Verified 06/27/24 21:32 sick and I throw up" levofloxacin [From [facility]] AdvReac Mild Nausea Verified 06/27/24 21:32 Home Medications Medication Instructions Recorded Confirmed Type aspirin 81 mg tablet,delayed 81 mg PO DAILY 08/17/20 07/18/25 History release (Ousmane Low Dose Aspirin) pantoprazole 40 mg tablet,delayed 40 mg PO DAILYBB 08/28/22 07/18/25 History release mirtazapine 15 mg tablet 7.5 mg PO HS 03/04/24 07/18/25 History multivitamin 1 tab PO QAM 03/04/24 07/18/25 History pravastatin 40 mg tablet 40 mg PO HS 03/04/24 07/18/25 History apixaban 5 mg tablet (Eliquis) 5 mg PO BID 06/27/24 07/18/25 History magnesium oxide 400 mg (241.3 mg 400 mg PO QAM 06/27/24 07/18/25 History magnesium) tablet lisinopril 20 mg tablet 20 mg PO QAM 07/07/24 07/18/25 History phenylephrine HCl 0.25 % rectal [address] BID PRN hemorrhoids #12 09/06/24 07/18/25 Rx suppository ea acetaminophen 500 mg capsule 1,000 mg PO BID PRN Pain 07/18/25 07/18/25 History carvedilol 6.25 mg tablet 6.25 mg PO BID 07/18/25 07/18/25 History coQ10 (ubiquinol) 200 mg capsule 200 mg PO DAILY 07/18/25 07/18/25 History hydrochlorothiazide 25 mg tablet 12.5 mg PO QAM 07/18/25 07/18/25 History Patient History Medical History CAD (coronary artery disease), [place] coronary artery Hypertensive emergency Asthma RARELY USES PRN INH HTN (hypertension) History of basal cell carcinoma Diverticular disease Valvular heart disease "LEAKY VALVE" - FOLLOWS W/ DR. DE SANTIAGO Hypertension Hyperlipidemia Surgical History S/P CABG (coronary artery bypass graft) History of cataract surgery LEFT History of basal cell carcinoma (BCC) excision History of hysterectomy History of esophagogastroduodenoscopy (EGD) History of colonoscopy Family History Sister Diabetes Brother Diabetes Other Heart disease Hypertension Social History Smoking Status: Never smoker Second Hand Exposure: No; Do You Dip or Chew Tobacco: No; Hx Alcohol Use: No Hx Substance Use: No Preferred Language: Icelandic Communication Ability: Effective Visual Impairment: Limited Hearing Ability: Normal Talent Assistant Required: No Beliefs That Will Affect Care: None marital status: Current Living Situation: Spouse Current Living Situation Comment: With , own home, [address] Feels Safe at Home: Yes Assistive Devices: Glasses Review of Systems Review of Systems: All systems reviewed & are unremarkable except as noted in HPI & below Physical Exam Constitutional: WD/WN, vitals as above no acute distress Eyes: PERRL, conjunctivae normal, anicteric sclerae ENMT: external ear and nose normal, oropharynx normal Neck: trachea midline, no thyromegaly Respiratory: normal respiratory effort, lungs clear to auscultation Cardiovascular: RRR, no murmur, no edema Heart Sounds: no cardiac rub Vessels: no JVD Extremities: no edema Chest (Breasts): Additional Comments: Midline sternal incision with mild tenderness at the base of the sternum to palpation Gastrointestinal (Abdomen): normal bowel sounds, soft, nontender, no hepatosplenomegaly Musculoskeletal: no cyanosis or clubbing, extremities motor strength 5/5 Skin: no rashes, warm and dry Results & Data Vital Signs (Past 12 Hours) Vital Signs Temp Pulse Pulse Pulse Resp BP BP 07/19/25 11:25 36.5 C 69 18 123/82 07/19/25 11:08 07/19/25 07:36 36.5 C 66 18 112/75 07/19/25 07:07 67 07/19/25 03:51 36.6 C 80 16 122/85 Pulse Ox O2 Del Method 07/19/25 11:25 96 Room Air 07/19/25 11:08 Room Air 07/19/25 07:36 98 Room Air 07/19/25 07:07 07/19/25 03:51 95 Room Air Laboratory Results Laboratory Results - last 24 hr 07/18/25 07/18/25 07/19/25 15:18 19:14 08:16 WBC 7.64 5.44 RBC 4.65 4.42 Hgb 13.7 13.1 Hct 41.2 39.6 MCV 88.6 89.6 MCH 29.5 29.6 MCHC 33.3 33.1 RDW Std Deviation 42.4 43.0 RDW Coeff of [place] 13.0 13.1 Plt Count 174 143 MPV 10.6 10.6 Immature Gran % (Auto) 0.1 Neut % (Auto) 72.6 Lymph % (Auto) 21.1 Bates % (Auto) 4.8 Eos % (Auto) 1.0 Baso % (Auto) 0.4 Neut # (Auto) 5.54 Lymph # (Auto) 1.61 Bates # (Auto) 0.37 Eos # (Auto) 0.08 Baso # (Auto) 0.03 Immature Gran # (Auto) 0.01 PT 11.0 INR 1.0 APTT 31 PTT Ratio 1.2 Sodium 137 139 Potassium 4.2 4.0 Chloride 103 107 Carbon Dioxide 26 25 Anion Gap 8 7 BUN 28 H 25 H Creatinine 1.39 H 1.21 H Est Cr Clr Drug Dosing 37.2 42.8 eGFR 39.82 47.03 BUN/Creatinine Ratio 20.1 H 20.7 H Glucose 105 H 92 Calcium 9.7 9.1 Phosphorus 2.9 Magnesium 2.1 Total Bilirubin 0.7 AST 19 ALT 15 Alkaline Phosphatase 54 Troponin I High Sens 6.7 5.8 Total Protein 8.2 Albumin 4.7 Globulin 3.5 Albumin/Globulin Ratio 1.3 Diagnostic Findings Echocardiogram 07/19/2025 The left ventricle is normal in size There is mild left hypertrophy There is a septal dyssynergy consistent with conduction abnormality EF 60-65% with grade 1 diastolic dysfunction Aortic sclerosis with trace aortic insufficiency ECG Additional Comments: EKG 07/19/2025 Sinus rhythm with right bundle branch block, left anterior fascicular block PG Care Time/CCT Total # of Minutes Spent Total Time Spent with Patient: Total time spent is greater than 50% in coordination of care (as documented) at patient's floor/unit and/or counseling patient: [place] [address] OFFICE CONSULT LVL 55M Patient Type New History Comprehensive Exam Comprehensive Medical Decision Making High Complexity Diagnoses Atypical chest pain R07.89 Hypertension I10 Hypertension type: unspecified S/P CABG x 3 Z95.1 RBBB (right bundle branch block with left anterior fascicular block) I45.2 Time Spent (min) 80 (2) Hypertension Hypertension type: unspecified Qualified Code(s): I10 - Essential (primary) hypertension
[2025-07-19 15:23] VITALS: BP 122/85; PULSE 74
--- NOTE | 2025-07-20 14:35 | Discharge Summary ---
Date of Service July 20, 2025 Admission HPI Per Admitting Provider Ms. Khan is a 75 year old with hypertension, CAD s/p three-vessel CABG 04/2024, pulmonary embolism 05/2024, hyperlipidemia, symptomatic PVCs, gastroparesis, nephrolithiasis, chronic back pain, post op A Fib presented to [facility] ED due to 2 weeks of sternal chest pain. Patient states that since her CABG she has experienced some discomfort, but reports that in the last 2 weeks she has noted intermittent chest pain along the sternotomy site. 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 She denies FAIR, symptoms on exertion, palpiataions related to this pain, radiation down the arm, diaphoresis during episodes, nausea during episodes. There is a persistent discomfort sternally, followed by sharp stabbing sensations or a "burning." She denies fevers, chills, changes to skin over sternotomy site. Patient denies symptoms at time of exam. Patient reports notable concern over symptoms and doesn't feel safe to go home at this time. Patient with CT scan completed on Saturday and would like to await to see if test results before obtaining additional imaging. Patient states that she recently had a decrease in her HCTZ and increase in her Coreg; however, she states she feels dizzy and notes that when her SBP is around 100 she has just been taking coreg at 3.125 raher than the 6.25. She denies symptoms above recreated by relative hypotension. In the ED, vitals were notable for BP of 100-120s, HR of 70s, and O2 sat of high 90s-100 on RA Imaging revealed normal CXR EKG TWI noted, consistent with EKG from 02/2025 ED interventions: none [facility] and management of chest pain. Admission Exam Per Admitting Provider 60 Physical Exam: GENERAL APPEARANCE: AxOx4, generally well-appearing F, no acute distress. HEENT: NC, AT. MMM. EOMI, clear conjunctiva, oropharynx clear. NECK: Supple without lymphadenopathy. No stiffness or restricted ROM. HEART: Normal rate and regular rhythm, normal S1/S1, no m/r/g, sternotomy scar with well healing surgical incision, no tenderness on exam LUNGS: CTAB, moving air well. No crackles or wheezes are heard. ABDOMEN: Soft, nontender, nondistended with good bowel sounds heard. BACK: No CVAT, no obvious deformity. EXTREMITIES: Without cyanosis, clubbing or edema. NEUROLOGICAL: Grossly nonfocal. Alert and oriented, moving all 4 extremities. CN not formally tested but appear grossly intact. Skin: Warm and dry without any rash. Principal Diagnosis Atypical chest pain, status post CABG x3, right bundle branch block with left anterior fascicular block Discharge Exam Lying in bed without any acute distress Constitutional well developed, well nourished and + obese; not ill appearing Eyes PERRL, conjunctivae normal, anicteric sclerae ENMT external ear and nose normal, oropharynx normal Neck trachea midline, no thyromegaly Respiratory no respiratory distress Auscultation: lungs clear to auscultation bilaterally Cardiovascular Rate/Rhythm: regular rate and regular rhythm; not tachycardic Heart Sounds: normal S1 and normal S2; no murmur Extremities: no edema Gastrointestinal (Abdomen) Inspection/Auscultation: normal bowel sounds; abdomen not distended Percussion/Palpation: abdomen soft; abdomen nontender Neurologic normal touch/pain/proprioception and moves all extremities; no focal motor deficits Lymphatic no cervical or axillary lymphadenopathy Discharge Data Allergies Allergy/AdvReac Type Severity Reaction Status Date / Time Sulfa (Sulfonamide Allergy Intermediate Hives Verified 06/27/24 21:32 Antibiotics) codeine AdvReac Intermediate "deathly Verified 06/27/24 21:32 sick and I throw up" levofloxacin [From Levaquin] AdvReac Mild Nausea Verified 06/27/24 21:32 Consultations 07/18/25 16:46 ED Decision to Admit Stat 07/19/25 09:50 Consult Cardiology Routine Hospital Course (1) Chest pain: (2) Atypical chest pain: (3) Hypertension: (4) S/P CABG x 3: (5) GERD (gastroesophageal reflux disease): (6) Hyperlipidemia: Plan Ms. Khan is a 75 year old with hypertension, CAD s/p three-vessel CABG 04/2024, pulmonary embolism 05/2024, hyperlipidemia, symptomatic PVCs, gastroparesis, nephrolithiasis, chronic back pain, post op A Fib [facility] and management of chest pain. Patient does report pain in sternum back on 06/04/2025 with PCP on exam. Also noted multiple admissions s/p CABG for recurrent chest discomfort. There have been multiple admissions for recurrent chest discomfort with negative ischemic work-up since CABG. Nuclear stress test (07/08/24) negative for inducible ischemia. High suspicion that chest discomfort is musculoskeletal etiology. It should be noted that CT Chest (08/18/24) showed partial healing of a non- displaced fracture of the lower sternum, patient underwent repeat Chest CT (03/16/25) with no acute abnormalities. CT from 07/16 showed a few lung nodules that needs to be followed up as an outpatient with repeat CT scan as advised. Atypical Chest pain, ACS r/o Nonexertional, sternal pain at site of surgical procedure, would suspect p ostsurgical persistent pain Patient very concerned Serial troponins are negative for any ACS Has significant EKG findings with ST depression and T wave inversion in anterior leads ECHO is showing- LV is normal in size, mild concentric LVH, septal motion is consistent with conduction abnormality, no regional wall motion abnormalities, EF 60 to 65%, grade 1 diastolic dysfunction, aortic valve sclerosis mild without significant aortic valvular stenosis, trace AR,trace MR and trace TR. Doppler findings do not suggest pulmonary hypertension Given the history of CABG and ongoing chest pain and EKG changes will ask cardiology to evaluate Appreciate cardiology input and recommendation She can be discharged and will have a follow-up appointment with the prison librarian as an outpatient Abnormal CT of the chest And new left upper lobe solid nodule of 3 mm - 12-month CT follow-up was advised Any new right upper lobe ground glass nodule measuring 6 mm - [address] of the chest was requested for follow-up And new additional sub-6 mm solid pulm nodules are not significantly changed Will need follow-up as an outpatient with repeat CT as advised #CKD IIIa Creatinine running 1.3-1.4, for a change in GFR of approximately 30 mL/min in the course of the year. Renal function at baseline Creatinine shows mild improvement has 1 point1.21 Essential hypertension with symptomatic hypotension Recent reduction in HCTZ and increase in coreg (however, reports not tolerating 6.25 coreg) Continue hctz Continue coreg at 3.125 bid Continue lisinopril Her blood pressure remains stable at 123/82 Nontoxic multinodular goiter Thyroid function monitoring due. Last ultrasound in June 2023, which was stable TSH 1.97 05/2025 Primary insomnia continue Mirtazapine 7.5 mg qhs #Chronic anticoagulation therapy #Hx of post opatrial fibrillation #Hx of pulmonary embolism has not missed eliquis dosing Continue Eliquis admit med/tele DVT eliquis PCP Dr. Taylor Total Time Total Time Spent Total Time Spent (In Minutes): 35 minutesMinutes Discharge Plan Discharge Items Patient Disposition: Home - Self-Care Reason For Visit: CHEST PAIN Discharge Diagnosis: Atypical chest pain, status post CABG x3, right bundle branch block with left anterior fascicular block atypical chest pain Condition on Discharge: Good Activity: Resume your previous activity Non-emergency contact: Primary Care Provider Call non-emergency contact if: you have any medication questions and your symptoms worsen Follow-up/Referrals: Jasmina Taylor MD [Primary Care Provider] - (Date & Time 07/23/2025 11:00 AM Provider: Jasmina Taylor MD [facility] ) Diet: Heart Healthy Addtl Attending Provider Instructions: Please take precautions to avoid falls Take your medications as advised For the small nodules in the lung you need to repeat CAT scan as advised through your PCP Please keep appointments with your healthcare providers Pending Studies at Discharge: No Stand-Alone Forms: My [facility] [employer], Smoking Cessation Medications and DC Order Prescriptions: New carvedilol 3.125 mg Tablet 3.125 mg PO BID Qty: 60 0RF amlodipine 2.5 mg tablet 2.5 mg PO PM Qty: 30 0RF tramadol 25 mg tablet 25 mg PO Q12H PRN (Reason: pain) Qty: 10 0RF Continued aspirin [Ousmane Low Dose Aspirin] 81 mg Tablet,Delayed Release (Dr/Ec) 81 mg PO DAILY pantoprazole 40 mg tablet,delayed release (DR/EC) 40 mg PO DAILYBB multivitamin Tablet 1 tab PO QAM pravastatin 40 mg tablet 40 mg PO HS mirtazapine 15 mg tablet 7.5 mg PO HS Eliquis 5 mg tablet 5 mg PO BID magnesium oxide 400 mg (241.3 mg magnesium) tablet 400 mg PO QAM lisinopril 20 mg tablet 20 mg PO QAM phenylephrine HCl 0.25 % suppository 1 supp [place] BID PRN (Reason: hemorrhoids) Qty: 12 0RF hydrochlorothiazide 25 mg tablet 12.5 mg PO QAM coQ10 (ubiquinol) 200 mg Capsule 200 mg PO DAILY acetaminophen 500 mg Capsule 1,000 mg PO BID PRN (Reason: Pain) Discontinued carvedilol 6.25 mg tablet 6.25 mg PO BID Discharge Orders: Discharge Order (Routine); Ordered 07/19/25 Ordered By: Gibson Worrell Admission Data Admit Date/Time: 07/18/25 17:06 Attending Provider: Gibson Worrell Admit Provider: Suha Rees Primary Care Provider: Jasmina Taylor Other Providers: Suha Rees; Mary Choe; Cody Daugherty; Sam Oshea; German Laboy; Alfonso Goldstein; Micky Ray; Jane Gutierrez; Sarah Antoine; Meli Villar; Ly Johnson; Mary Fraga; Bandar Lord; Juancho Pedro; Cornelia Hawley; Eliana Reinoso; Nurys Damon; Octavio Vargas; Marcos Corrigan; Jahaira Aviles; Cecilia Liang; Noé Hines; Sanjay Hurd Other Interventions: Discharge Summary Assessment (RN) Last Done: 07/19/25 15:21
--- NOTE | 2025-07-20 18:05 | Electrocardiogram Report ---
Test Reason : Blood Pressure : */* mmHG Vent. Rate : 75 BPM Atrial Rate : 75 BPM P-R Int : 192 ms QRS Dur : 118 ms QT Int : 400 ms P-R-T Axes : 7 -74 19 degrees QTcB Int : 446 ms Normal sinus rhythm Left axis deviation ST segement changes concerning for ischemia Abnormal ECG When compared with ECG of 18-Jul-2025 14:50, Right bundle branch block is now Present Confirmed by Noé Archibald ([id number]) on 07/20/2025 6:05:02 PM Referred By: REFERRED SELF Confirmed By: Noé Archibald
== END 2025-07-19 15:53 | disposition home or self-care (01) ==
LOC: 2N 14:31 → ED 14:31 → SUATTDRO 17:06 → 2N 17:52